=== PATIENT | female | born 1955 | race Caucasian/White ===

== ENCOUNTER → 2024-03-03 | Outpatient (CLI) | payer MEDICARE, SELFPAY ==
[2024-03-03 12:24] LABS: Free T4 (Free Thyroxine) 1.15 ng/dL (0.89-1.76); Thyroid Stimulating Hormone 4.33 uIU/mL (0.55-4.78)
== END | disposition home or self-care (01) ==
LOC: COPL 11:07
PROVIDERS: PCP Family Medicine; Referring Provider Family Medicine; Visit Provider Family Medicine
DX: E03.9 Hypothyroidism, unspecified (principal)
CPT/HCPCS: 36415; 84439; 84443

== ENCOUNTER → 2024-07-01 | Outpatient (CLI) | payer MEDICARE, SELFPAY ==
--- NOTE | 2024-07-01 11:00 | XR_ITS ---
Examination: MRI lumbar spine without contrast Date and time of exam: July 02, 2023 and 52 hours INDICATIONS: Onset lower back pain beginning 2 months ago radiating down the left leg Technique: Multiple MRI axial and sagittal sections lumbar spine. Sagittal T2-weighted images, TR 3500, TE 118 T1 weighted transverse sections, TR 688 T8.5, T2-weighted sagittal sections T1 weighted sagittal sections TR 621, TE 30 T2 axial sections, TR 4, 190, TE 84. Findings: Subacute appearing moderately severe compression fracture L4 vertebral body, depression superior endplate Minimal retropulsion of the posterior-superior margin of this vertebral body Advanced disc narrowing L1-L2, L2-L3 Grade 1 anterolisthesis L5 on S1 Diffuse lumbar disc desiccation L5-S1 3 mm central lumbar disc bulges L4-L5 no disc protrusion L3-L4 3 mm central right paracentral disc bulge L2-L3 no disc protrusion L1-L2 disc protrusion IMPRESSION: Moderately severe subacute appearing compression fracture L4 vertebral body CT lumbar spine without contrast follow up would best assess stability of this fracture
== END | disposition home or self-care (01) ==
LOC: SMRI 10:23
PROVIDERS: PCP Family Medicine; Referring Provider Family Medicine; Visit Provider Family Medicine
DX: M48.56XA Collapsed vertebra, not elsewhere classified, lumbar region, initial encounter for fracture (principal)
CPT/HCPCS: 72148

== ENCOUNTER 2024-12-04 11:54 | Inpatient (IN) | payer MEDICARE, SELFPAY ==
[2024-12-04 12:04] VITALS: BP 115/81; PULSE 106; RESP 18; TEMP 36.7; O2SAT 96; BMI 42.4
--- NOTE | 2024-12-04 12:08 | XR_ITS ---
Examination: CT abdomen and pelvis without contrast. Coronal 3-D reconstructions. Sagittal 2-D reconstructions. Date and time of exam:December 04, 2024 1249 hours INDICATIONS: Lower abdominal pain with bloody diarrhea today CTDI: vol (mGy): 22.9 DLP: (mGycm): 1377 Technique: Axial images of the abdomen have been obtained, 3 mm slice thickness Intravenous contrast material has not been administered. Low dose protocols were performed. One or more of the following dose reduction techniques were used; automated exposure control, adjustment of the mA and/or KV according to patient size, use of iterative reconstruction technique. Findings: 3 mm, 6 mm pulmonary nodules right lower lobe, 2 mm pulmonary nodule left lower lobe Liver is irregular in contour with solid right lobe liver lesion, 6.3 cm with irregular margins Hepatomegaly 21 cm Spleen is not enlarged Septation in the gallbladder No pancreatic or splenic lesion Normal adrenal glands 1 mm left renal calculus image 81 Atrophic right kidney with 2 mm calculus No hydronephrosis or ureteral calculi There is diffuse inflammatory change involving the descending colon without diverticula No pericecal inflammatory change Contracted urinary bladder Absent uterus Severe osteopenia with chronic osteoporotic compression L4 Left hip total arthroplasty with satisfactory alignment IMPRESSION: Noncalcified pulmonary nodules as above, recommend elective CT chest without contrast follow-up Cirrhosis 6.3 cm solid mass with irregular margins right lobe the liver, recommend MRI abdomen liver follow-up pre and postcontrast Septation in the gallbladder, recommend hepatobiliary sonography Tiny nonobstructing renal calculi Diffuse nonspecific inflammatory change involving the descending colon, differential would include ulcerative colitis, Crohn's disease
--- NOTE | 2024-12-04 12:08 | PD.EDRME ---
Rapid Medical Screening Exam RME Arrival date/time: 12/04/24 11:54 69-year-old female with no known medical history presents to the emergency room with a chief complaint of diffuse 10 out of 10 abdominal pain and rectal bleeding x 3 days I have greeted and performed a focused initial assessment of this patient. A comprehensive ED assessment and evaluation of the patient, analysis of all test results, and completion of the medical decision making process will be conducted by additional ED providers. Chief Complaint: Abdominal Pain Vital signs: Vital Signs Temperature 98.1 F 12/04/24 12:04 Pulse Rate 106 H 12/04/24 12:04 Respiratory Rate 18 12/04/24 12:04 Blood Pressure 115/81 12/04/24 12:04 Pulse Oximetry (%) 96 12/04/24 12:04 Oxygen Delivery Method Room Air 12/04/24 12:04
[2024-12-04 12:49] LABS: Basophils # (Auto) 0.1 Thou/mm3 (0.0-0.2); Basophils % (Auto) 1 % (0-2.5); Eosinophils # (Auto) 0.1 Thou/mm3 (0.0-0.5); Eosinophils % (Auto) 1 % (0-10); Hematocrit 48.4 % (36.0-46.0); Hemoglobin 15.7 g/dL (12.0-16.0); Immature Granulocytes Auto 0.07 Thou/mm3 (0.00-0.00); Lymphocytes # (Auto) 1.9 Thou/mm3 (1.0-4.8); Lymphocytes % (Auto) 17 % (10-50); Mean Corpuscular HGB Conc 32.4 g/dl (31.0-37.0); Mean Corpuscular Hemoglobin 30.3 pg (25.0-35.0); Mean Corpuscular Volume 93 fL (80-100); Monocytes # (Auto) 0.7 Thou/mm3 (0.0-0.8); Monocytes % (Auto) 6 % (0-12); Neutrophils # (Auto) 8.6 Thou/mm3 (1.8-7.7); Neutrophils % (Auto) 75 % (37-80); Nucleated Red Blood Cell # 0.00 Thou/mm3 (0.00-0.00); Nucleated Red Blood Cell % 0 /100 WBC (0); Platelet Count 267 Thou/mm3 (140-440); RDW Standard Deviation 51.5 fL (36.4-46.3); Red Blood Count 5.19 Miln/mm3 (4.00-5.20); White Blood Count 11.5 Thou/mm3 (3.6-11.0)
[2024-12-04 13:04] LABS: INR 1.1 (0.9-1.3); Partial Thromboplastin Time 27.7 Seconds (22.0-36.0); Prothrombin Time 11.9 Seconds (9.0-12.2)
[2024-12-04 13:08] LABS: Alanine Aminotransferase 17 U/L (10-49); Albumin, Serum 4.3 gm/dL (3.4-4.8); Albumin/Globulin Ratio 1.7 (1.2-2.2); Alkaline Phosphatase 138 U/L (46-116); Anion Gap 12 (7-16); Aspartate Amino Transferase 18 U/L (0-34); BUN/Creatinine Ratio 16 Ratio (12-20); Bilirubin,Total 0.3 mg/dL (0.3-1.2); Blood Urea Nitrogen 26 mg/dL (9-23); Calcium 9.9 mg/dL (8.3-10.6); Calcium (Corrected) 9.9 mg/dL (8.5-10.1); Carbon Dioxide 20.0 mMol/L (20.0-31.0); Chloride 105 mMol/L (98-107); Creatinine (Component) 1.6 mg/dL (0.6-1.3); Estimated Creatinine Clearance 43.3 mL/min (>60); Globulin 2.5 gm/dL (2.3-3.5); Glucose 122 mg/dL (74-106); Lipase 38 U/L (12-53); Osmolality,Calculated 279 (275-295); Potassium 4.7 mMol/L (3.4-5.1); Sodium 137 mMol/L (136-145); Total Protein 6.8 gm/dL (5.7-8.2); eGFR 35 See Note
[2024-12-04 14:07] VITALS: BP 135/95; PULSE 82; RESP 18; TEMP 36.5; O2SAT 93
--- NOTE | 2024-12-04 14:46 | PD.EDABDPN ---
ED Abdominal Pain RME/HPI General Chief Complaint: Abdominal Pain Stated complaint: ABD PAIN Time seen by provider: 12/04/24 12:09 Arrival date/time: 12/04/24 11:54 RME / HPI RME / HPI narrative: 12/04/24 11:54 69-year-old female with no known medical history presents to the emergency room with a chief complaint of diffuse 10 out of 10 abdominal pain and rectal bleeding x 3 days I have greeted and performed a focused initial assessment of this patient. A comprehensive ED assessment and evaluation of the patient, analysis of all test results, and completion of the medical decision making process will be conducted by additional ED providers. DR. ZIGGY FRIAS ED EVALUATION 69 year old female with history of hypertension, hypothyroidism, gout, osteoarthritis, s/p left hip replacement presents to the ED for evaluation of abdominal pain and blood in stool that began 2 days ago. Patient states 2 days ago when she first developed the abdominal pain, she noted the pain was so severe that next thing she recalls is waking up on the floor and soiled (had large amount of diarrhea per pt). States since then, has had subsequent episodes of pain with diarrhea that is described as a dark maroon color. Accompanied by nausea and feeling light headed. Patient mentioned she has had similar episodes of abdominal pain with diarrhea intermittently over the last several years, but not to this severity. Patient also denies any blood in stool previously. No other associated symptoms or complaints reported. Related Data Previous Rx's ?Medication ?Instructions ?Recorded albuterol sulfate 90 mcg/actuation 1 inh inhalation QID PRN shortness 03/18/23 aerosol inhaler of breath or wheezing #8.5 grams prednisone 50 mg tablet 50 mg PO QDAY #5 tabs 03/18/23 Allergies Allergy/AdvReac Type Severity Reaction Status Date / Time No Known Allergies Allergy Verified 12/04/24 11:57 Review of Systems Review of Systems Systems Reviewed: All systems reviewed, normal except as documented Past Medical History Past Medical History CARDIAC: Positive Hypertension; Negative Congestive Heart Failure RESPIRATORY: Negative Chronic Obstructive Pulmonary Disease (COPD) GENITOURINARY: Negative Renal Disease MUSCULOSKELETAL: Positive Gout ENDOCRINE: Positive Hypothyroidism; Negative Diabetes Mellitus Type 1 or Diabetes Mellitus Type 2 Social History SMOKING STATUS: Never smoker ED Exam Narrative Physical exam: See [facility] Course Quality Measures none Orders Category Date Time Status Bedside COVID-19 Antigen Test NOW Care 12/04/24 15:18 Active COVID-19 Screening Questionnaire NOW Care 12/04/24 15:02 Active Decision to Admit X1 Care 12/04/24 15:02 Completed Consult to Gastroenterology Stat Cons 12/04/24 15:[address] abdomen pelvis wo con Stat Exams 12/04/24 12:08 Completed CBC Stat Lab 12/04/24 12:19 Completed CMP [Comprehensive Metabolic Panel] Stat Lab 12/04/24 12:19 Completed Lipase Stat Lab 12/04/24 12:19 Completed PT [Prothrombin Time with INR] Stat Lab 12/04/24 12:19 Completed PTT [Partial Thromboplastin Time] Stat Lab 12/04/24 12:19 Completed Type and Screen Stat Lab 12/04/24 12:19 Completed UA [Urinalysis] Stat Lab 12/04/24 14:58 Received Urine Culture Stat Lab 12/04/24 14:58 Received Vital Signs Vital signs: Vital Signs Temperature 98.1 F 12/04/24 12:04 Pulse Rate 106 H 12/04/24 12:04 Respiratory Rate 18 12/04/24 12:04 Blood Pressure 115/81 12/04/24 12:04 Pulse Oximetry (%) 96 12/04/24 12:04 Oxygen Delivery Method Room Air 12/04/24 12:04 Pulse ox is 96% on room air which is adequate. Abdominal Pain MDM MDM Narrative MDM Narrative:: This section includes all my notes and documentations, including HPI, PE, and ED course. Eddi Villareal MD ? HPI: 69 year old female with history of hypertension, hypothyroidism, gout, osteoarthritis, s/p left hip replacement presents to the ED for evaluation of abdominal pain and blood in stool that began 2 days ago. Patient states 2 days ago when she first developed the abdominal pain, she noted the pain was so severe that next thing she recalls is waking up on the floor and soiled (had large amount of diarrhea per pt). States since then, has had subsequent episodes of pain with diarrhea that is described as a dark maroon color. Accompanied by nausea and feeling light headed. Patient mentioned she has had similar episodes of abdominal pain with diarrhea intermittently over the last several years, but not to this severity. Patient also denies any blood in stool previously. No other associated symptoms or complaints reported. ? ROS: All negative except as documented in HPI. ? PE: GENERAL APPEARANCE:? alert and oriented x 4, well-developed, well-nourished, no acute distress, mrbidly obese VITALS: All vitals were reviewed and the pulse ox is % on room air, which is normal according to my interpretation. HEENT: Normocephalic, atraumatic; pupils equal, round, reactive to light; EOMI; mucous membranes pink, moist; oropharynx clear NECK: Supple LUNGS: CTABL; no wheezes, no rales, no rhonchi HEART: Regular rate, regular rhythm; normal S1, S2; no murmurs ABDOMEN: obese; non distended; normal BS;? soft, mild generalized tenderness, no guarding, no rebound; no masses, no organomegaly, no hernia?? BACK:? no CVA tenderness EXTREMITIES:? atraumatic; no edema NEUROLOGIC: awake; alert and oriented x4; cranial nerves II-XII grossly intact; no focal sensory or motor deficits PSYCHIATRIC:? appropriate mood and affect SKIN: warm, dry, normal color; no rashes ? I reviewed all diagnostic test results: My review of the abdomen/pelvis CT: Diffuse nonspecific inflammatory change involving the descending colon. ? Blood tests and urine test: mild leukocytosis, PT/PTT within normal limits Covid: Negative. ? At this point, diagnoses include: Colitis and renal insufficiency ? Treatment here included: No medications given in the ED. ? 15: [address] Browning (blood bank laboratory technologist on-call for the ER). We discussed patient's case in detail. He recommended that we admit the patient for colitis and GI bleeding with the presumption that he patient will be scoped. Patient has renal insufficiency and colitis will admit I spoke with hospitalist team A regarding admission. Patient data External records reviewed:: [facility] previous records Clinical information provided by:: patient Social determinants that could affect healthcare access:: none Patient has the following chronic illnesses:: hypertension, hypothyroidism, gout, osteoarthritis, s/p left hip replacement How is presenting disease/condition affected by chronic disease/condition?: uneffected by Evaluation data The following diagnostics were reviewed and interpreted by me:: lab results and radiology exam(s) Lab and/or radiology exams considered but not ordered:: None Interpretation Summary: See MDM Medications / Prescriptions Medications or Prescriptions considered but not ordered:: None Medication administrations:: None Consultations Consultation(s) initiated? (list below): Yes Consultation #1 (Physician, Specialty, Details): See MDM Diagnosis Differential diagnosis abdominal pain: abdominal pain, constipation and diverticulitis Most likely diagnosis given after review of the tests above:: Colitis renal insufficiency Admission Indicated Admission indicated?: indicated Admission Request Was there a request for admission?: Yes Admission Attestation Admission request attestation: Discussed case with [] from Hospitalist service regarding admission. Discussed patients ED course, exam findings, labs, and radiology results. The Hospitalist [agrees,declines] to accept the patient for admission. Disposition Plan Disposition Plan: Admit Discharge Plan Plan Patient Disposition: Admit Acute Care w/in Hospital Prescriptions/Referrals Prescriptions/Med Rec: No Action albuterol sulfate 90 mcg/actuation HFA aerosol inhaler 1 inh inhalation QID PRN (Reason: shortness of breath or wheezing) Qty: 8.5 0RF Rx Instructions: Dispense with spacer and teaching prednisone 50 mg tablet 50 mg PO QDAY Qty: 5 0RF Referrals: Tona Metz MD [Primary Care Provider, Family Practice] - In 1 week Problem List Clinical Impression: Colitis, Acute renal insufficiency Patient/Caregiver Discharge Instructions Print Language: Korean Stand Alone Forms: [facility] Info., Patient Portal Info Letter
[2024-12-04 15:09] LABS: Collection Type, Urine Clean Catch
[2024-12-04 15:32] LABS: Bacteria,Urine 3+; Bilirubin,Urine Negative (Negative); Blood,Urine Negative (Negative); Color,Urine Yellow (Lt Yel-Yel); Glucose, Urine Negative (Negative); Ketones,Urine Negative (Negative); Leukocyte Esterase,Urine Positive (Negative); Nitrite,Urine Negative (Negative); PH,Urine 6.0 (5.0-7.0); Protein,Urine Trace (Neg - Trace); RBC,Urine 2 /hpf (0-3); Specific Gravity,Urine 1.026 (1.001-1.035); Squamous Epithelial Cell,Urine 11 /hpf (0-5); Urobilinogen,Urine Negative mg/dL (0.0-1.0); WBC,Urine 7 /hpf (0-5)
[2024-12-04 15:35] LABS: Clarity,Urine Hazy (Clear/Hazy)
[2024-12-04 16:12] VITALS: BP 137/84; PULSE 76; RESP 18; TEMP 36.6; O2SAT 93
--- NOTE | 2024-12-04 16:43 | ESHP_ITS ---
Documentation for date of: 12/04/24 HPI History of Present Illness History of present illness: This is a 69 yof with a h/o htn, hypothyroidism, osteoarthritis, gout, and a surgical history of umbilical hernia repair who presents with 4 days of nausea, vomiting, severe abdominal pain, and bloody diarrhea. She has never had this pain before and it has been persistent without relief over the past 4 days. 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 She endorses fever, bright red blood in the bowl, vomiting on Wednesday, and an inability to tolerate food. Of note, she endorses 100 pound weight loss through dietary changes alone. She denies new chest pain, shortness of breath, dysuria, or difficulty with urination. She also notes her step mother seems to have been having diarrhea. However, the patient has never had a colonoscopy in the past. ED Course: - Vitals: T: 98.1 HR 106 RR 18 BP 115/81, SPO2 95% RA, - Labs notable for elevated BUN and Creatinine, and WBC of 11.5. - CT of the abdomen and pelvis were notable for non calcified pulmonary nodules in the lower lobes bilaterally, a 6.3 cm liver mass with irregular margins, gallbladder septation, and diffuse inflammatory changes of the descending colon. - GI was consulted in the ED, and they recommended admission for colonoscopy with biopsies. Review of Systems Review of Systems Narrative Review of Systems: See ROS in the HPI above Past Medical History Past Medical History CARDIAC: Positive Hypertension MUSCULOSKELETAL: Positive Arthritis and Gout ENDOCRINE: Positive Hypothyroidism Family History OTHER FAMILY HX: CHF in father, now . Breast cancer in mother, now Surgical History SURGICAL: Positive Abdominal Surgery (Umbilical hernia repair), Joint Replacement (Left hip arthroplasty ) and Hysterectomy Social History SOCIAL: Denies smoking and alcohol use. Lives with step mother and is her primary caregiver. Stepmother has john. [place]. Exam Vital Signs Temp Pulse Resp BP Pulse Ox O2 Del Method 98 F 76 18 137/84 H 93 L Room Air 12/04/24 16:12 12/04/24 16:12 12/04/24 16:12 12/04/24 16:12 12/04/24 16:12 12/04/24 16:12 Narrative Exam General: Patient lying in bed, not in acute distress but appears mildly to moderately uncomfertable HEENT: Non-icteric sclera, PERRL, moist mucus membranes without lesion within the oral cavity. . Cardiac: RRR, no murmurs appreciated on auscultation. Respiratory: clear to auscultation bilaterally, no tachypnea or labored speech. Abdominal: Soft, non-distended, TTP in the suprapubic and LLQ without rebound. Extremities:Non-edematous, warm, well perfused. Skin: No skin rashes or bruising. Results: Labs 12/04/24 12:19 12/04/24 12:19 Labs: Short CBC 12/04/24 Range/Units 12:19 WBC 11.5 H (3.6-11.0) Thou/mm3 Hgb 15.7 (12.0-16.0) g/dL Hct 48.4 H (36.0-46.0) % Plt Count 267 (140-440) Thou/mm3 BMP 12/04/24 12:19 Sodium 137 Potassium 4.7 Chloride 105 Carbon Dioxide 20.0 BUN 26 H Creatinine 1.6 H Glucose 122 H Calcium 9.9 Liver Function 12/04/24 Range/Units 12:19 Total Bilirubin 0.3 (0.3-1.2) mg/dL AST 18 (0-34) U/L ALT 17 (10-49) U/L Alkaline Phosphatase 138 H (46-116) U/L Albumin 4.3 (3.4-4.8) gm/dL Urine 12/04/24 Range/Units 14:58 Urine Color Yellow (Lt Yel-Yel) Urine Clarity Hazy (Clear/Hazy) Urine pH 6.0 (5.0-7.0) Ur Specific [place] 1.026 (1.001-1.035) Urine Protein Trace (Neg - Trace) Urine Glucose (UA) Negative (Negative) Imaging and Cardiology CT scan - abdomen: Additional comments: Image report reviewed by Erik Martinez DO. Quality Measures Quality Measures none Advance care planning discussed with:: patient Medications Home Medications and Allergies Home Medications ?Medication ?Instructions ?Recorded ?Confirmed ?Type acetaminophen 300 mg-codeine 60 mg 1 tab PO Q6H PRN pa in (scale score 12/04/24 12/04/24 History tablet 7-10) allopurinol 100 mg tablet 100 mg PO DAILY 12/04/2411/20 History amitriptyline 25 mg tablet 25 mg PO DAILY 12/04/2411/20 History amlodipine 5 mg tablet 5 mg PO DAILY 12/04/2412/04 History levothyroxine 137 mcg tablet 137 mcg PO DAILY 12/04/24 12/04/24 History lisinopril 20 mg tablet 20 mg PO DAILY 12/04/2411/20 History triamterene 75 1 tab PO DAILY 12/04/2411/20 History mg-hydrochlorothiazide 50 mg tablet Allergies Allergy/AdvReac Type Severity Reaction Status Date / Time No Known Allergies Allergy Verified 12/04/24 11:57 Visit Medications Acetaminophen (Acetaminophen 325 Mg Tablet) 650 mg PO Q6H PRN; Protocol PRN Reason: Fever >100.5 or pain Stop: 01/03/25 16:07 Lactated Ringer's (Lactated Ringers) 1,000 mls @ 75 mls/hr IV .[id number] RAMON Stop: 12/05/24 05:34 Piperacillin/Tazobactam/Dextrose (Zosyn) 3.375 gm in 50 mls @ 12.5 mls/hr IV Q8HR RAMON Stop: 12/11/24 21:59 Piperacillin/Tazobactam/Dextrose (Zosyn) 3.375 gm in 50 mls @ 100 mls/hr IV X1 ONE Stop: 12/04/24 16:59 Morphine Sulfate (Morphine Sulf Inj 4 Mg/Ml Vial) 2 mg IVP Q4HR PRN PRN Reason: PAIN SCALE 7-10 (Severe Stop: 12/09/24 16:12 Ondansetron HCl (Ondansetron Inj 2 Mg/Ml Inj 2 Ml) 4 mg IVP Q6H PRN; Protocol PRN Reason: NAUSEA OR VOMITING Stop: 01/03/25 16:12 Assessment & Plan Problem List (1) Intractable abdominal pain: Status: Acute (2) Nausea & vomiting: Qualifiers: Vomiting type: unspecified Qualified Code(s): R11.2 - Nausea with vomiting, unspecified Status: Acute (3) Bloody diarrhea: Status: Acute Assessment and plan: 69 yof with a h/o htn, gout, and hypothyroidsim presents with 4 days of severe abdominal pain, nausea, and bloody diarrhea. She was found to have an elevated white count and non-specific inflammatory changes of the descending colon. Differential includes infectious colitis, inflammatory bowel disease, and colon cancer. C dif colitis is less likely, as the patient has not been recently hospitalized nor has she had any systemic antibiotics. Plan: mIVF, LR IV ondansetron Clear liquid diet Stool studies: WBC, fecal calprotectin, stool culture. Blood cultures and empiric antibiotics ordered for possible infectious colitis. GI consulted in the ED, recommended admission for colonoscopy with biopsy. (4) Liver lesion, right lobe: Status: Acute (5) Pulmonary nodules/lesions, multiple: Status: Acute Assessment and plan: These are incidental findings on CT abd and pelvis. Differential diagnosis does include metastasis. Recommended work up is MRI with and without contrast for the liver and CT chest non-contrast for the lungs. Will hold off on ordering these tests until tomorrow for further assessment of patient's renal function (see below) and coordination with GI for colonoscopy scheduling. (6) KADI (acute kidney injury): Status: Acute Assessment and plan: Noted on initial labs with Cr 1.6, BUN 26. This most likely represents a pre- renal kadi based on the patient's inability to maintain fluid intake and her diarrhea. Plan: -mIVF, lactated ringer - encouraged Clear liquid diet - avoid nephrotoxic drugs and contrast for now. (7) Hypothyroidism: Qualifiers: Hypothyroidism type: unspecified Qualified Code(s): E03.9 - Hypothyroidism, unspecified Status: Chronic Assessment and plan: - Stable, continue home levothyroxine. (8) HTN (hypertension): Qualifiers: Hypertension type: unspecified Qualified Code(s): I10 - Essential (primary) hypertension Status: Chronic Assessment and plan: Stable. Patient is normotensive in the ED today. She is currently on amlodipine, HCTZ-triamterine, and lisinopril. Given that she may be hypovolemic, will hold her HCTZ-triamterine and reassess her BP tomorrow. (9) Compression fracture of L4 vertebra: Status: Chronic Assessment and plan: - Incidental finding on CT abd and pelvis. Will inform patient in the morning. (10) Septation of gallbladder: Status: Acute Assessment and plan: Incidental finding on CT Abd and pelvis. Unclear significance. Recommendation is hepatobiliary sonography. Will reassess tomorrow. Attending Provider Attestation/Addendum I have examined the patient, reviewed labs and imaging findings, discussed the case with the resident(s), and reviewed entered orders. I agree with the plan of care as outlined in this note, with these additional summaries/recommendations: After examination of the patient and review of the clinical data, I feel that this patient needs admission to the hospital for further treatment and evaluation. Patient is a 69-year-old female with a medical history of primary hypertension, dyslipidemia, gout, asthma, hypothyroidism, osteoarthritis, and umbilical hernia presents to [facility] emergency department on 12/04/2024 with chief complaints of intractable diffuse abdominal pain, intractable nausea, and intractable bloody diarrhea. Patient seen at bedside. She reports intractable abdominal pain rated 10 out of 10 in severity. Appears to be located more in lower quadrants with worst pain in left lower quadrant. She also endorses no oral intake in the last 48 hours and persistent nausea. Patient also endorses bloody diarrhea. She denies any sick contacts. She has never had a colonoscopy. She reports she has lost over 100 pounds in the last year with diet alone. Patient underwent CT abdomen and pelvis in the ER which revealed diffuse nonspecific inflammatory changes in the descending colon. Patient diagnosed with colitis. Etiology for colitis possibly secondary to infectious versus IBD versus colon cancer. We will obtain stool studies. Start IV antibiotic. Start IV fluids. Clear liquid diet. Gastroenterology consulted, recommendations appreciated. Patient was also found to have noncalcified pulmonary nodules and 6.3 cm solid mass with irregular margins in right lobe of the liver. We will obtain MRI of abdomen pre and postcontrast once KADI more improved. Patient also noted to have a septated gallbladder which is likely an incidental finding. LFTs and T. bili with normal limits. Alk phos mildly elevated. Appreciate GI recs on septation of gallbladder. Continue pain management for chronic osteoporotic compression fracture of L4. Patient diagnosed with acute kidney injury. On admission creatinine 1.6 and BUN 26. Most likely secondary to prerenal azotemia in the setting of poor oral intake. Continue IV fluids and repeat renal panel in AM. Avoid nephrotoxic agents and renally dose medications. Continue home levothyroxine. Continue home antihypertensives. Patient updated on the plan and in agreement. All questions answered to satisfaction. Please see residents note for additional details and management. Dr. Suhail MD
[2024-12-04] MEDS: PIPER/TAZO 3.375 GM PREMIX 3.375 GM/50 ML BAG IV ×2 (17:00→21:14)
[2024-12-04 18:10] VITALS: BP 156/102; PULSE 82; RESP 18; TEMP 36.8; O2SAT 94
[2024-12-04 18:14] VITALS: BMI 96.8
[2024-12-04 18:21] VITALS: BMI 43.9
[2024-12-04] MEDS: MORPHINE SULF INJ 4 MG/ML VIAL 2 MG IVP (18:45)
[2024-12-04] MEDS: ONDANSETRON INJ 2 MG/ML INJ 2 ML 4 MG IVP (18:45)
[2024-12-04 19:35] VITALS: PULSE 77; PULSE 79; RESP 18; RESP 19; O2SAT 97
[2024-12-04] MEDS: RINGERS LACTATED 1000 ML 1,000 ML 75 ML IV (19:50)
[2024-12-04 20:00] VITALS: BP 95/61; PULSE 76; RESP 16; TEMP 36.1; O2SAT 98
--- NOTE | 2024-12-04 22:00 | PD.IMCONS ---
HPI Data of Consult Requesting Physician: Jerel Jang MD Primary Care Provider: Tona Metz MD Consult Narrative Reason for consult: Pain abdomen, bleeding per rectum, abnormal CTAP History of present illness: 69 years of female evaluated the request of ER physician Dr. Villareal for clinical presentation of severe abdominal pain with bloody stools CT scan of the abdomen pelvis showed inflammatory changes in the descending colon and a 6.7 cm mass in the right of the liver which is solid with irregular margins. Cirrhotic liver disease Patient does have a history of essential hypertension osteoarthritis and gouty arthritis cc:: cc: Jerel Jang MD Review of Systems Review of Systems Systems Reviewed: All systems reviewed, normal except as documented Past Medical History Surgical History OTHER SURGICAL HX: As in the history present illness Meds Home Medications and Allergies Home Medications ?Medication ?Instructions ?Recorded ?Confirmed ?Type acetaminophen 300 mg-codeine 60 mg 1 tab PO Q6H PRN pain (scale score 12/04/24 12/04/24 History tablet 7-10) allopurinol 100 mg tablet 100 mg PO DAILY 12/04/24 12/04/24 History amitriptyline 25 mg tablet 25 mg PO DAILY 12/04/24 12/04/24 History amlodipine 5 mg tablet 5 mg PO DAILY 12/04/24 12/04/24 History levothyroxine 137 mcg tablet 137 mcg PO DAILY 12/04/24 12/04/24 History lisinopril 20 mg tablet 20 mg PO DAILY 12/04/24 12/04/24 History triamterene 75 1 tab PO DAILY 12/04/24 12/04/24 History mg-hydrochlorothiazide 50 mg tablet Allergies Allergy/AdvReac Type Severity Reaction Status Date / Time No Known Allergies Allergy Verified 12/04/24 11:57 Exam Vital Signs Temp Pulse Resp BP Pulse Ox O2 Del Method FiO2 98.2 F 79 18 156/102 H 97 Room Air 25 12/04/24 18:10 12/04/24 19:35 12/04/24 19:35 12/04/24 18:10 12/04/24 19:35 12/04/24 18:10 12/04/24 19:35 Constitutional Comments: Chronically ill-appearing Routine Respiratory Exam Comments: Normal to auscultation Routine Abdominal Exam Comments: Soft tenderness Results Labs 12/05/24 05:52 12/05/24 05:52 Labs: Short CBC 12/04/24 Range/Units 12:19 WBC 11.5 H (3.6-11.0) Thou/mm3 Hgb 15.7 (12.0-16.0) g/dL Hct 48.4 H (36.0-46.0) % Plt Count 267 (140-440) Thou/mm3 BMP 12/04/24 12:19 Sodium 137 Potassium 4.7 Chloride 105 Carbon Dioxide 20.0 BUN 26 H Creatinine 1.6 H Glucose 122 H Calcium 9.9 Liver Function 12/04/24 Range/Units 12:19 Total Bilirubin 0.3 (0.3-1.2) mg/dL AST 18 (0-34) U/L ALT 17 (10-49) U/L Alkaline Phosphatase 138 H (46-116) U/L Albumin 4.3 (3.4-4.8) gm/dL Urine 12/04/24 Range/Units 14:58 Urine Color Yellow (Lt Yel-Yel) Urine Clarity Hazy (Clear/Hazy) Urine pH 6.0 (5.0-7.0) Ur Specific [place] 1.026 (1.001-1.035) Urine Protein Trace (Neg - Trace) Urine Glucose (UA) Negative (Negative) Assessment and Plan Additional Assessment & Plan Additional Plan: # Pain abdomen with blood in the stool and abnormal CT scan of the abdomen pelvis showing inflammatory changes in the descending colon Differential diagnosis include infectious versus inflammatory colitis plan Complete stool panel with culture and sensitivity fecal calprotectin Giardia antigen Gram stain as well as stool for C. difficile Clear liquid diet GoLytely prep Consent obtained for fiberoptic colonoscopy with possible biopsy # Right liver mass 6.5 cm aFP MRI liver pre and postcontrast 4 phase If consistent with a solid mass recommend CT-guided biopsy of this mass prior to discharge Other medical problems include Essential hypertension Osteoarthritis Gouty arthritis Thank you very much for the opportunity to participate in care of this patient
[2024-12-04] MEDS: NA SU/NAHCO3/KC/PEG (Golytely) 4,000 ML BTL 4000 ML PO (22:48)
[2024-12-04 23:13] LABS: Sed Rate (ESR) 62 mm/hr (0-30)
[2024-12-04 23:24] LABS: C-Reactive Protein 2.6 mg/dL (0.0-0.9)
[2024-12-05] VITALS (9 sets, daily range): BP systolic 110–151; BP diastolic 54–93; PULSE 67–88; RESP 16–20; TEMP 36.1–36.9; O2SAT 94–96
[2024-12-05] MEDS: ONDANSETRON INJ 2 MG/ML INJ 2 ML 4 MG IVP (01:33)
[2024-12-05] MEDS: MORPHINE SULF INJ 4 MG/ML VIAL 2 MG IVP ×3 (01:34→20:03)
--- NOTE | 2024-12-05 01:40 | PC.NURSE ---
Patient had a chief complaint of pain in the abd, back and hip. Patient also a chief complaint of nausea. Zofran and Morphine were administered to patient for nausea and pain. Greer is currently taking Golytely in preperation for colonoscopy for 12/[address] Browning.
[2024-12-05] MEDS: PIPER/TAZO 3.375 GM PREMIX 3.375 GM/50 ML BAG IV ×3 (05:34→21:59)
[2024-12-05 06:14] LABS: Basophils # (Auto) 0.1 Thou/mm3 (0.0-0.2); Basophils % (Auto) 1 % (0-2.5); Eosinophils # (Auto) 0.1 Thou/mm3 (0.0-0.5); Eosinophils % (Auto) 1 % (0-10); Hematocrit 44.1 % (36.0-46.0); Hemoglobin 14.4 g/dL (12.0-16.0); Immature Granulocytes Auto 0.08 Thou/mm3 (0.00-0.00); Lymphocytes # (Auto) 2.1 Thou/mm3 (1.0-4.8); Lymphocytes % (Auto) 22 % (10-50); Mean Corpuscular HGB Conc 32.7 g/dl (31.0-37.0); Mean Corpuscular Hemoglobin 30.4 pg (25.0-35.0); Mean Corpuscular Volume 93 fL (80-100); Monocytes # (Auto) 0.7 Thou/mm3 (0.0-0.8); Monocytes % (Auto) 8 % (0-12); Neutrophils # (Auto) 6.4 Thou/mm3 (1.8-7.7); Neutrophils % (Auto) 68 % (37-80); Nucleated Red Blood Cell # 0.00 Thou/mm3 (0.00-0.00); Nucleated Red Blood Cell % 0 /100 WBC (0); Platelet Count 202 Thou/mm3 (140-440); RDW Standard Deviation 51.1 fL (36.4-46.3); Red Blood Count 4.73 Miln/mm3 (4.00-5.20); White Blood Count 9.4 Thou/mm3 (3.6-11.0)
[2024-12-05 07:00] LABS: Alanine Aminotransferase 18 U/L (10-49); Albumin, Serum 3.6 gm/dL (3.4-4.8); Albumin/Globulin Ratio 1.6 (1.2-2.2); Alkaline Phosphatase 120 U/L (46-116); Anion Gap 11 (7-16); Aspartate Amino Transferase 22 U/L (0-34); BUN/Creatinine Ratio 18 Ratio (12-20); Bilirubin,Total 0.5 mg/dL (0.3-1.2); Blood Urea Nitrogen 25 mg/dL (9-23); Calcium 9.2 mg/dL (8.3-10.6); Calcium (Corrected) 9.5 mg/dL (8.5-10.1); Carbon Dioxide 23.9 mMol/L (20.0-31.0); Chloride 102 mMol/L (98-107); Creatinine (Component) 1.4 mg/dL (0.6-1.3); Estimated Creatinine Clearance 50.5 mL/min (>60); Globulin 2.2 gm/dL (2.3-3.5); Glucose 85 mg/dL (74-106); Magnesium 1.9 mg/dL (1.6-2.6); Osmolality,Calculated 277 (275-295); Phosphorous 3.2 mg/dL (2.4-5.1); Potassium 4.1 mMol/L (3.4-5.1); Sodium 137 mMol/L (136-145); Thyroid Stimulating Hormone 4.19 uIU/mL (0.55-4.78); Total Protein 5.8 gm/dL (5.7-8.2); eGFR 41 See Note
[2024-12-05] MEDS: AMITRIPTYLINE HCL 25 MG TABLET PO (09:01)
--- NOTE | 2024-12-05 09:08 | PC.SS ---
Patient Elle Poe is a 69 Year old female admitted for Intractable ABD pain, Colitis, KADI. SS contacted patient's , Dick Poe at bedside to discuss discharge plan and verify demographic information. Patient's reports he is surrogate decision maker, . reports patient lives at home with him. Patient does utilize a Rollator walk and cane to assist with ambulation. Choice of pharmacy is [facility]. Patient is able to complete ADL's independently. At time of discharge patient will return back home. will provide transportation. Discharge plan: Home Next of kin: Dick Poe PCP: Tona Metz
--- NOTE | 2024-12-05 09:21 | ESPR_ITS ---
Documentation for date of: 12/06/24 Exam Vital Signs Temp Pulse Resp BP Pulse Ox O2 Del Method O2 Flow Rate 97 F 90 18 122/88 H 98 Room Air 2 12/06/24 08:00 12/06/24 08:00 12/06/24 08:00 12/06/24 08:00 12/06/24 08:00 12/06/24 08:00 12/06/24 00:00 FiO2 25 12/04/24 19:35 Narrative Exam General: Middle aged patient, no acute distress, appears uncomfortable. HEENT: No JVD noted. Mucosa moist. Pupils are equal Cardiovascular: Quiet heart tones. Regular rate and rhythm. No murmur appreciated Respiratory: Clear to auscultation bilaterally without wheezes or crackles. Abdomen: Soft not distended, TTP mostly in the LLQ Skin: Dry, no rashes or bruising Musculoskeletal: No gross injuries. Able to move all 4 extremities. Non edematous lower extremities. Neuro: Alert . No focal neuro deficits. Psych: Appropriate affect and mood, anxious Objective Labs 12/08/24 04:33 12/08/24 04:33 Labs: Laboratory Results - last 24 hr 12/05/24 12/05/24 12/06/24 22:43 22:58 05:16 WBC 8.0 RBC 4.50 Hgb 13.8 Hct 42.2 MCV 94 MCH 30.7 MCHC 32.7 RDW Std Deviation 50.6 H Plt Count 207 Neut % (Auto) 66 Lymph % (Auto) 22 [place] % (Auto) 8 Eos % (Auto) 2 Baso % (Auto) 1 Neut # (Auto) 5.3 Lymph # (Auto) 1.8 [place] # (Auto) 0.7 Eos # (Auto) 0.1 Baso # (Auto) 0.1 Immature Gran # (Auto) 0.07 H Absolute Nucleated RBC 0.00 Immature Gran % 1 H Nucleated RBC % 0 PT 12.5 H INR 1.2 APTT 27.3 Sodium 140 Potassium 4.0 Chloride 104 Carbon Dioxide 27.6 Anion Gap 8 BUN 16 Creatinine 1.5 H Estim Creat Clear Calc 47.2 L eGFR 38 L BUN/Creatinine Ratio 11 L Glucose 85 Calculated Osmolality 279 Calcium 9.5 Corrected Calcium 9.8 Total Bilirubin 0.6 AST 15 ALT 15 Alkaline Phosphatase 112 Total Protein 5.5 L Albumin 3.6 Globulin 1.9 L Albumin/Globulin Ratio 1.9 Tumor Marker AFP 2.70 Stool for White Cells 12/06/24 05:36 WBC RBC Hgb Hct MCV MCH MCHC RDW Std Deviation Plt Count Neut % (Auto) Lymph % (Auto) [place] % (Auto) Eos % (Auto) Baso % (Auto) Neut # (Auto) Lymph # (Auto) [place] # (Auto) Eos # (Auto) Baso # (Auto) Immature Gran # (Auto) Absolute Nucleated RBC Immature Gran % Nucleated RBC % PT INR APTT Sodium Potassium Chloride Carbon Dioxide Anion Gap BUN Creatinine Estim Creat Clear Calc eGFR BUN/Creatinine Ratio Glucose Calculated Osmolality Calcium Corrected Calcium Total Bilirubin AST ALT Alkaline Phosphatase Total Protein Albumin Globulin Albumin/Globulin Ratio Tumor Marker AFP Stool for White Cells Negative Imaging and cardiology MRI - abdomen: Status: image reviewed by me (Report reviewed by me) CT scan - chest: Status: image reviewed by me Additional comments: report reviewed by me Quality Measures Quality Measures none Advance care planning discussed with:: patient Assessment & Plan Assessment Current Active Medications: Generic Name Dose Route Start Last Admin Trade Name Freq PRN Reason Stop Dose Admin Acetaminophen 650 mg 12/04/24 16:08 Acetaminophen 325 Mg Tablet PO 01/03/25 16:07 Q6H PRN Fever >100.5 or pain Protocol Allopurinol 100 mg 12/05/24 09:00 12/05/24 09:01 Allopurinol 100 Mg Tablet PO 01/04/25 08:59 100 mg DAILY RAMON Administration Amitriptyline HCl 25 mg 12/05/24 09:00 12/05/24 09:01 Amitriptyline Hcl 25 Mg Tablet PO 01/04/25 08:59 25 mg DAILY RAMON Administration Amlodipine Besylate 5 mg 12/05/24 09:00 12/05/24 09:02 Amlodipine Besylate 5 Mg Tablet PO 01/04/25 08:59 5 mg DAILY RAMON Administration Piperacillin/Tazobactam/Dextrose 3.375 gm in 50 mls @ 12.5 mls/hr 12/04/24 22:00 12/06/24 05:57 Zosyn IV 12/11/24 21:59 12.5 mls/hr Q8HR RAMON Administration Levothyroxine Sodium 112 mcg/ 137 mcg 12/05/24 06:00 12/06/24 05:54 Levothyroxine Sodium 25 mcg PO 01/04/25 05:59 Not Given ACBR RAMON Lisinopril 20 mg 12/05/24 09:00 12/05/24 09:01 Lisinopril 20 Mg Tablet PO 01/04/25 08:59 20 mg DAILY RAMON Administration Morphine Sulfate 2 mg 12/04/24 16:13 12/06/24 08:40 Morphine Sulf Inj 4 Mg/Ml Vial IVP 12/09/24 16:12 2 mg Q4HR PRN Administration PAIN SCALE 7-10 (Severe Ondansetron HCl 4 mg 12/04/24 16:13 12/05/24 01:33 Ondansetron Inj 2 Mg/Ml Inj 2 Ml IVP 01/03/25 16:12 4 mg Q6H PRN Administration NAUSEA OR VOMITING Protocol Attending Provider Attestation/Addendum Note created in error, see other progress note on 12/06
--- NOTE | 2024-12-05 11:12 | XR_ITS ---
Examination: MRI abdomen with intravenous contrast. MRI abdomen without intravenous contrast. Date and time of exam: December 05, 2024 1419 hours INDICATIONS: 6.3 cm solid mass with irregular margins right lobe the liver on CT abdomen study December 04, 2024 Technique: Multiple axial, sagittal and coronal sections of the abdomen obtained. Transverse images, TR 6020, TE 107. T1 weighted transverse images, TR 582, TE 9.5. T2-weighted sagittal images, TR 4000, TE 105. T2-weighted sagittal images, TR 4000, TE 5. Coronal images, TR 4210, TE 107. Axial and coronal images are obtained post 20 cc intravenous injection, gadolinium. Findings: Precontrast images demonstrate 7.0 x 6.8 cm mass irregular margins abdomen the liver on the right This mass shows irregular enhancement on the postcontrast images Liver is irregular in contour Hepatomegaly 21 cm Spleen is not enlarged Atrophic right kidney No pancreatic mass No gallstones No common hepatic or common bile duct stones Pancreatic duct is not dilated No ascites IMPRESSION: Cirrhosis 7.0 x 6.8 cm mass irregular margins right lobe of the liver, consider primary hepatocellular carcinoma, hepatic metastasis
[2024-12-05] MEDS: RINGERS LACTATED 1000 ML 1,000 ML 125 ML IV (11:56)
--- NOTE | 2024-12-05 16:02 | PC.SS ---
SS follow up note; Patient is on IV ABX, pending Colonoscopy. Patient will discharge home when medically cleared.
--- NOTE | 2024-12-05 16:12 | XR_ITS ---
Examination: CT chest, without intravenous contrast. Sagittal and coronal 2-D reconstructions. Exam date and time: December 05, 2024, 1626 hours INDICATIONS: 6.3 cm solid mass with irregular margins right lobe of the liver, hepatocellular carcinoma pattern, restaging CTDI:vol (mGy) 19.8 DLP: (mGycm) 714 Technique: Multiple 3.0 mm axial sections of the chest to been obtained. Bone and lung density settings are obtained. Sagittal and coronal 2-D reconstructions have been obtained. Low dose protocols were performed. One or more of the following dose reduction techniques were used; automated exposure control, adjustment of the mA and/or KV according to patient size, use of iterative reconstruction technique. Findings: No thoracic aorta aneurysmal dilatation. Enlarged main pulmonary artery segment 39 mm 16mm right tracheobronchial lymph node At least 20 bilateral subcentimeter pulmonary nodules ranging in size from 2 mm to 9 mm as well as a 11 mm nodule in the right lower lobe No pneumonia or pulmonary edema Severe osteopenia with chronic osteoporotic wedging mid dorsal vertebral bodies producing moderate kyphosis dorsal spine IMPRESSION: Pulmonary artery hypertension 16mm right tracheobronchial lymph node At least 20 metastatic pulmonary nodules
--- NOTE | 2024-12-05 23:30 | PC.NURSE ---
golytely stopped per Dr. Nam stone(for liver biopsy tomorrow). Pt consumed approximately total of more than 2500ml golytely.
[2024-12-05 23:35] LABS: INR 1.2 (0.9-1.3); Partial Thromboplastin Time 27.3 Seconds (22.0-36.0); Prothrombin Time 12.5 Seconds (9.0-12.2)
[2024-12-05 23:55] LABS: AFP Non-Pregnant 2.70 ng/mL (<8.10)
[2024-12-06] VITALS (12 sets, daily range): BP systolic 116–147; BP diastolic 58–101; PULSE 68–90; RESP 16–18; TEMP 36.1–37.2; O2SAT 93–98
[2024-12-06 05:57] LABS: Basophils # (Auto) 0.1 Thou/mm3 (0.0-0.2); Basophils % (Auto) 1 % (0-2.5); Eosinophils # (Auto) 0.1 Thou/mm3 (0.0-0.5); Eosinophils % (Auto) 2 % (0-10); Hematocrit 42.2 % (36.0-46.0); Hemoglobin 13.8 g/dL (12.0-16.0); Immature Granulocytes Auto 0.07 Thou/mm3 (0.00-0.00); Lymphocytes # (Auto) 1.8 Thou/mm3 (1.0-4.8); Lymphocytes % (Auto) 22 % (10-50); Mean Corpuscular HGB Conc 32.7 g/dl (31.0-37.0); Mean Corpuscular Hemoglobin 30.7 pg (25.0-35.0); Mean Corpuscular Volume 94 fL (80-100); Monocytes # (Auto) 0.7 Thou/mm3 (0.0-0.8); Monocytes % (Auto) 8 % (0-12); Neutrophils # (Auto) 5.3 Thou/mm3 (1.8-7.7); Neutrophils % (Auto) 66 % (37-80); Nucleated Red Blood Cell # 0.00 Thou/mm3 (0.00-0.00); Nucleated Red Blood Cell % 0 /100 WBC (0); Platelet Count 207 Thou/mm3 (140-440); RDW Standard Deviation 50.6 fL (36.4-46.3); Red Blood Count 4.50 Miln/mm3 (4.00-5.20); White Blood Count 8.0 Thou/mm3 (3.6-11.0)
[2024-12-06] MEDS: PIPER/TAZO 3.375 GM PREMIX 3.375 GM/50 ML BAG IV (05:57)
[2024-12-06 05:59] LABS: Alanine Aminotransferase 15 U/L (10-49); Albumin, Serum 3.6 gm/dL (3.4-4.8); Albumin/Globulin Ratio 1.9 (1.2-2.2); Alkaline Phosphatase 112 U/L (46-116); Anion Gap 8 (7-16); Aspartate Amino Transferase 15 U/L (0-34); BUN/Creatinine Ratio 11 Ratio (12-20); Bilirubin,Total 0.6 mg/dL (0.3-1.2); Blood Urea Nitrogen 16 mg/dL (9-23); Calcium 9.5 mg/dL (8.3-10.6); Calcium (Corrected) 9.8 mg/dL (8.5-10.1); Carbon Dioxide 27.6 mMol/L (20.0-31.0); Chloride 104 mMol/L (98-107); Creatinine (Component) 1.5 mg/dL (0.6-1.3); Estimated Creatinine Clearance 47.2 mL/min (>60); Globulin 1.9 gm/dL (2.3-3.5); Glucose 85 mg/dL (74-106); Osmolality,Calculated 279 (275-295); Potassium 4.0 mMol/L (3.4-5.1); Sodium 140 mMol/L (136-145); Total Protein 5.5 gm/dL (5.7-8.2); eGFR 38 See Note
[2024-12-06 07:59] LABS: Stool for WBCs Negative (Negative)
[2024-12-06] MEDS: MORPHINE SULF INJ 4 MG/ML VIAL 2 MG IVP ×2 (08:40→18:11)
--- NOTE | 2024-12-06 09:22 | ESPR_ITS ---
Documentation for date of: 12/06/24 Subjective Subjective Interval history: Patient examined at bedside, no acute overnight events. Not feeling well due to anxiety surrounding her liver mass. Still having some abdominal pain and reported some vertigo this morning. Patient was made NPO at midnight in preparation for her liver biopsy. She still had evidence of KADI today and was given a 1L bolus of LR. Oncology was consulted today. Exam Vital Signs Temp Pulse Resp BP Pulse Ox O2 Del Method O2 Flow Rate 97 F 90 18 122/88 H 98 Room Air 2 12/06/24 08:00 12/06/24 08:00 12/06/24 08:00 12/06/24 08:00 12/06/24 08:00 12/06/24 08:00 12/06/24 00:00 FiO2 25 12/04/24 19:35 Narrative Exam General: Middle aged patient who appears to be in no acute distress, though appears uncomfortable. HEENT: No JVD noted. Mucosa moist. Pupils are equal, no diplopia observed. Cardiovascular: Heart sounds soft. Regular rate and rhythm. No murmur appreciated Respiratory: Clear to auscultation bilaterally without wheezes or crackles. Abdomen: Soft, not distended, TTP mostly in the LLQ Skin: Dry, no rashes or bruising Musculoskeletal: No gross injuries. Able to move all 4 extremities. Non edematous lower extremities. Neuro: No focal neuro deficits. Psych: appropriate affect and mood, anxioius Objective Labs 12/07/24 05:20 12/07/24 05:20 Labs: Laboratory Results - last 24 hr 12/05/24 12/05/24 12/06/24 22:43 22:58 05:16 WBC 8.0 RBC 4.50 Hgb 13.8 Hct 42.2 MCV 94 MCH 30.7 MCHC 32.7 RDW Std Deviation 50.6 H Plt Count 207 Neut % (Auto) 66 Lymph % (Auto) 22 [place] % (Auto) 8 Eos % (Auto) 2 Baso % (Auto) 1 Neut # (Auto) 5.3 Lymph # (Auto) 1.8 [place] # (Auto) 0.7 Eos # (Auto) 0.1 Baso # (Auto) 0.1 Immature Gran # (Auto) 0.07 H Absolute Nucleated RBC 0.00 Immature Gran % 1 H Nucleated RBC % 0 PT 12.5 H INR 1.2 APTT 27.3 Sodium 140 Potassium 4.0 Chloride 104 Carbon Dioxide 27.6 Anion Gap 8 BUN 16 Creatinine 1.5 H Estim Creat Clear Calc 47.2 L eGFR 38 L BUN/Creatinine Ratio 11 L Glucose 85 Calculated Osmolality 279 Calcium 9.5 Corrected Calcium 9.8 Total Bilirubin 0.6 AST 15 ALT 15 Alkaline Phosphatase 112 Total Protein 5.5 L Albumin 3.6 Globulin 1.9 L Albumin/Globulin Ratio 1.9 Tumor Marker AFP 2.70 Stool for White Cells 12/06/24 05:36 WBC RBC Hgb Hct MCV MCH MCHC RDW Std Deviation Plt Count Neut % (Auto) Lymph % (Auto) [place] % (Auto) Eos % (Auto) Baso % (Auto) Neut # (Auto) Lymph # (Auto) [place] # (Auto) Eos # (Auto) Baso # (Auto) Immature Gran # (Auto) Absolute Nucleated RBC Immature Gran % Nucleated RBC % PT INR APTT Sodium Potassium Chloride Carbon Dioxide Anion Gap BUN Creatinine Estim Creat Clear Calc eGFR BUN/Creatinine Ratio Glucose Calculated Osmolality Calcium Corrected Calcium Total Bilirubin AST ALT Alkaline Phosphatase Total Protein Albumin Globulin Albumin/Globulin Ratio Tumor Marker AFP Stool for White Cells Negative Quality Measures Quality Measures none Advance care planning discussed with:: patient Assessment & Plan Assessment Current Active Medications: Generic Name Dose Route Start Last Admin Trade Name Freq PRN Reason Stop Dose Admin Acetaminophen 650 mg 12/04/24 16:08 Acetaminophen 325 Mg Tablet PO 01/03/25 16:07 Q6H PRN Fever >100.5 or pain Protocol Allopurinol 100 mg 12/05/24 09:00 12/05/24 09:01 Allopurinol 100 Mg Tablet PO 01/04/25 08:59 100 mg DAILY RAMON Administration Amitriptyline HCl 25 mg 12/05/24 09:00 12/05/24 09:01 Amitriptyline Hcl 25 Mg Tablet PO 01/04/25 08:59 25 mg DAILY RAMON Administration Amlodipine Besylate 5 mg 12/05/24 09:00 12/05/24 09:02 Amlodipine Besylate 5 Mg Tablet PO 01/04/25 08:59 5 mg DAILY RAMON Administration Piperacillin/Tazobactam/Dextrose 3.375 gm in 50 mls @ 12.5 mls/hr 12/04/24 22:00 12/06/24 05:57 Zosyn IV 12/11/24 21:59 12.5 mls/hr Q8HR RAMON Administration Levothyroxine Sodium 112 mcg/ 137 mcg 12/05/24 06:00 12/06/24 05:54 Levothyroxine Sodium 25 mcg PO 01/04/25 05:59 Not Given ACBR RAMON Lisinopril 20 mg 12/05/24 09:00 12/05/24 09:01 Lisinopril 20 Mg Tablet PO 01/04/25 08:59 20 mg DAILY RAMON Administration Morphine Sulfate 2 mg 12/04/24 16:13 12/06/24 08:40 Morphine Sulf Inj 4 Mg/Ml Vial IVP 12/09/24 16:12 2 mg Q4HR PRN Administration PAIN SCALE 7-10 (Severe Ondansetron HCl 4 mg 12/04/24 16:13 12/05/24 01:33 Ondansetron Inj 2 Mg/Ml Inj 2 Ml IVP 01/03/25 16:12 4 mg Q6H PRN Administration NAUSEA OR VOMITING Protocol Plan 69 yof with a h/o htn, dysplidemia, osteoarthritis, and umbilical hernia repair presents to [facility] emergency department on 12/04/2024 with chief complaints of intractable diffuse abdominal pain, intractable nausea, and intractable bloody diarrhea. Admitted for intractable abdominal pain and work up of bloody diarrhea, and found to have a liver mass. #Liver Mass, right lobe #Pulmonary Nodules Incidental finding on CT Abdomen and pelvis, concerning due to irregular margins of the liver mass and multiple pulmonary nodules. MRI demonstrated solid mass with irregular borders. Dr Browning of GI was consulted, recommended bx of the lesion. Greater than 20 metastatic nodules were noted on the non-con chest CT. -NPO midnight for liver bx. -Consult with Dr. Camargo of oncology, appreciate recommendations. #Intractable Abdominal pain #Nausea/Vomiting #Bloody Diarrhea Patient was found to have an elevated white count and non-specific inflammatory changes of the descending colon on presentation in the ED. Differential includes infectious colitis, inflammatory bowel disease, and colon cancer. C dif colitis is less likely, as the patient has not been recently hospitalized nor has she had any systemic antibiotics. Infectious stool studies were negative with the exception of giardia and norovirus. Nausea/vomiting appear to be well controlled with antiemetics. -Pending stool studies, including calprotectin. -Has been on CLD, will try advancing to FLD after biopsy. -Pain control -Antiemetics #KADI Noted on initial labs with Cr 1.6, BUN 26. This most likely represents a pre- renal kadi based on the patient's inability to maintain fluid intake and her diarrhea. This has been persistent despite a few days of mIVF. -avoid nephrotoxic agents - bolus 1L LR - renally dosed medications -daily CMP #HTN stable on home meds -Lisinopril and amlodipine continued #Hypothyroidism stable on home meds. -continue levothyroxine Attending Provider Attestation/Addendum I have discussed and was present for the essential components of the history, physical examination, diagnosis, and treatment plan with the resident. I agree with the patient's care as documented by the resident and amended herein by me. Kieran Felix DO. Although this document has been carefully reviewed, there may still be some phonetic and other typographical errors. These errors are purely grammatical due to imperfections in the software program and should not be construed in any way to compromise the substance of the patient's medical care during this visit. Patient seen and evaluated this AM. No acute events overnight, patient still has complaints of some diarrhea and abdominal pain focused in the lower quadrants. Labs largely unremarkable however patient does have worsening KADI today, creatinine 1.5. Abdominal MRI obtained on 12/05 demonstrating a 7.0 x 6.8 cm mass with irregular margins in the right lobe of the liver indicative of possible hepatocellular carcinoma versus hepatic metastasis. CT chest also demonstrated numerous pulmonary nodules indicative of metastatic disease. Oncology has been consulted, we appreciate recommendations. Due to the patient's severe abdominal pain and bloody diarrhea on admission, gastroenterology does want to perform colonoscopy on an inpatient basis considering likely metastatic disease with associated hematochezia. However wants to obtain liver biopsy first which should happen today or tomorrow. Patient will remain on Zosyn for any possible intra-abdominal infection we will continue to monitor closely while she is here. Patient has been getting morphine sulfate 2 mg IV every 4 hours for her abdominal pain. Appreciate all specialist recommendations.
[2024-12-06 09:52] LABS: Clostridium Difficile PCR Negative (Negative)
[2024-12-06 10:33] LABS: Campylobacter PCR Negative (Negative); Salmonella Species PCR Negative (Negative); Shiga Toxin PCR Negative (Negative); Shigella Species PCR Negative (Negative)
[2024-12-06] MEDS: RINGERS LACTATED 1000 ML 1,000 ML 999 ML IV (11:04)
--- NOTE | 2024-12-06 12:22 | ESCONSULT_ITS ---
HPI Data of Consult Consult date: 12/06/24 Requesting Physician: Jerel Jang MD Primary Care Provider: Tona Metz MD Consult Narrative Reason for consult: Suspected malignancy with mets. History of present illness: Patient is a 69-year-old lady resident of [place] admitted with symptoms of abdominal pain nausea vomiting with rectal bleeding and bloody stools with CT scan abdomen pelvis revealing a 6.3 cm solid mass with irregular margins right lobe of the liver. There was also nonspecific inflammatory changes in the descending colon. Abdominal MRI also revealed 7.0 x 6.8 center mass irregular right over the liver suggestive of either hepatic primary or hepatic mets. Chest CT 12/05/2024 revealed multiple metastatic pulmonary nodules and 16 mm right tracheobronchial lymph node. Patient has seen Dr. Browning who will be performing colonoscopy and biopsy of the liver is also pending. A.m. labs 8.0 WBC hemoglobin 13.8 platelets 207. AFP normal at 2.7 stool panel for various pathogens and inflammation also ordered. Patient referred for oncological consultation. cc:: cc: Jerel Jang MD Past Medical History Family History OTHER FAMILY HX: CHF in father breast cancer in mother both Social History SOCIAL: Lives in [place] denies smoking alcohol use Past Medical History Comments PMH COMMENT: Hypertension arthritis gout hypothyroidism; umbilical hernia repair joint replacement hysterectomy Meds Home Medications and Allergies Home Medications ?Medication ?Instructions ?Recorded ?Confirmed ?Type acetaminophen 300 mg-codeine 60 mg 1 tab PO Q6H PRN pa in (scale score 12/04/24 12/04/24 History tablet 7-10) allopurinol 100 mg tablet 100 mg PO DAILY 12/04/2411/20 History amitriptyline 25 mg tablet 25 mg PO DAILY 12/04/2411/20 History amlodipine 5 mg tablet 5 mg PO DAILY 12/04/2412/04 History levothyroxine 137 mcg tablet 137 mcg PO DAILY 12/04/24 12/04/24 History lisinopril 20 mg tablet 20 mg PO DAILY 12/04/2411/20 History triamterene 75 1 tab PO DAILY 12/04/2411/20 History mg-hydrochlorothiazide 50 mg tablet Allergies Allergy/AdvReac Type Severity Reaction Status Date / Time No Known Allergies Allergy Verified 12/04/24 11:57 Exam Vital Signs Temp Pulse Resp BP Pulse Ox O2 Del Method O2 Flow Rate 97 F 84 18 122/88 H 98 Room Air 2 12/06/24 08:00 12/06/24 10:41 12/06/24 10:41 12/06/24 08:00 12/06/24 10:41 12/06/24 08:00 12/06/24 00:00 FiO2 25 12/04/24 19:35 Narrative Exam Sitting comfortably communicating clearly Results Labs 12/06/24 05:16 12/06/24 05:16 Labs: Short CBC 12/06/24 Range/Units 05:16 WBC 8.0 (3.6-11.0) Thou/mm3 Hgb 13.8 (12.0-16.0) g/dL Hct 42.2 (36.0-46.0) % Plt Count 207 (140-440) Thou/mm3 BMP 12/06/24 05:16 Sodium 140 Potassium 4.0 Chloride 104 Carbon Dioxide 27.6 BUN 16 Creatinine 1.5 H Glucose 85 Calcium 9.5 Liver Function 12/06/24 Range/Units 05:16 Total Bilirubin 0.6 (0.3-1.2) mg/dL AST 15 (0-34) U/L ALT 15 (10-49) U/L Alkaline Phosphatase 112 (46-116) U/L Albumin 3.6 (3.4-4.8) gm/dL Assessment and Plan Additional Assessment & Plan Additional Plan: 1. Suspected malignancy involving liver and lungs. Liver biopsy pending 2. GI symptoms rectal bleeding abdominal pain; colonoscopy pending. 3. Will follow. Thank you for allowing me to evaluate this patient
[2024-12-06] MEDS: SCOPOLAMINE 1 MG TDSY TOP (14:57)
[2024-12-06] MEDS: AMITRIPTYLINE HCL 25 MG TABLET PO (18:11)
--- NOTE | 2024-12-06 22:11 | ESPR_ITS ---
Documentation for date of: 12/06/24 Subjective Subjective Interval history: Patient evaluated Colonoscopy was put on hold because of the liver biopsy which is pending Exam Vital Signs Temp Pulse Resp BP Pulse Ox O2 Del Method O2 Flow Rate 98.9 F 85 18 147/101 H 97 Room Air 2 12/06/24 20:00 12/06/24 20:00 12/06/24 20:00 12/06/24 20:00 12/06/24 20:00 12/06/24 20:00 12/06/24 00:00 FiO2 25 12/04/24 19:35 Objective Labs 12/06/24 05:16 12/06/24 05:16 Labs: Laboratory Results - last 24 hr 12/05/24 12/05/24 12/06/24 22:43 22:58 05:16 WBC 8.0 RBC 4.50 Hgb 13.8 Hct 42.2 MCV 94 MCH 30.7 MCHC 32.7 RDW Std Deviation 50.6 H Plt Count 207 Neut % (Auto) 66 Lymph % (Auto) 22 [place] % (Auto) 8 Eos % (Auto) 2 Baso % (Auto) 1 Neut # (Auto) 5.3 Lymph # (Auto) 1.8 [place] # (Auto) 0.7 Eos # (Auto) 0.1 Baso # (Auto) 0.1 Immature Gran # (Auto) 0.07 H Absolute Nucleated RBC 0.00 Immature Gran % 1 H Nucleated RBC % 0 PT 12.5 H INR 1.2 APTT 27.3 Sodium 140 Potassium 4.0 Chloride 104 Carbon Dioxide 27.6 Anion Gap 8 BUN 16 Creatinine 1.5 H Estim Creat Clear Calc 47.2 L eGFR 38 L BUN/Creatinine Ratio 11 L Glucose 85 Calculated Osmolality 279 Calcium 9.5 Corrected Calcium 9.8 Total Bilirubin 0.6 AST 15 ALT 15 Alkaline Phosphatase 112 Total Protein 5.5 L Albumin 3.6 Globulin 1.9 L Albumin/Globulin Ratio 1.9 Tumor Marker AFP 2.70 Stool for White Cells Stool Campylobacter PCR Stl C. diff Tox B Gene Stl E.coli Shiga Tox PCR Stool Salmonella PCR Stool Shigella PCR 12/06/24 05:36 WBC RBC Hgb Hct MCV MCH MCHC RDW Std Deviation Plt Count Neut % (Auto) Lymph % (Auto) [place] % (Auto) Eos % (Auto) Baso % (Auto) Neut # (Auto) Lymph # (Auto) [place] # (Auto) Eos # (Auto) Baso # (Auto) Immature Gran # (Auto) Absolute Nucleated RBC Immature Gran % Nucleated RBC % PT INR APTT Sodium Potassium Chloride Carbon Dioxide Anion Gap BUN Creatinine Estim Creat Clear Calc eGFR BUN/Creatinine Ratio Glucose Calculated Osmolality Calcium Corrected Calcium Total Bilirubin AST ALT Alkaline Phosphatase Total Protein Albumin Globulin Albumin/Globulin Ratio Tumor Marker AFP Stool for White Cells Negative Stool Campylobacter PCR Negative Stl C. diff Tox B Gene Negative Stl E.coli Shiga Tox PCR Negative Stool Salmonella PCR Negative Stool Shigella PCR Negative Impressions Impression: Metastatic disease with liver mass and pulmonary nodules and GI bleed Pending biopsy of the liver mass I will schedule a colonoscopy with a colonic prep Assessment & Plan A&P Narrative 1. Suspected malignancy involving liver and lungs. Liver biopsy pending 2. GI symptoms rectal bleeding abdominal pain; colonoscopy pending. 3. Will follow. Thank you for allowing me to evaluate this patient Time Spent With Patient Time: Total time spent is greater than 50% in coordination of care (as documented) at patient's floor/unit and/or counseling patient:
[2024-12-07] VITALS (18 sets, daily range): BP systolic 105–153; BP diastolic 56–95; PULSE 66–95; RESP 12–94; TEMP 36.1–36.7; O2SAT 92–98; BMI 43.9
[2024-12-07] MEDS: MORPHINE SULF INJ 4 MG/ML VIAL 2 MG IVP ×2 (00:02→06:00)
[2024-12-07] MEDS: ONDANSETRON INJ 2 MG/ML INJ 2 ML 4 MG IVP ×2 (00:03→06:00)
[2024-12-07 05:53] LABS: Basophils # (Auto) 0.1 Thou/mm3 (0.0-0.2); Basophils % (Auto) 1 % (0-2.5); Eosinophils # (Auto) 0.2 Thou/mm3 (0.0-0.5); Eosinophils % (Auto) 2 % (0-10); Hematocrit 42.0 % (36.0-46.0); Hemoglobin 13.7 g/dL (12.0-16.0); Immature Granulocytes Auto 0.05 Thou/mm3 (0.00-0.00); Lymphocytes # (Auto) 1.6 Thou/mm3 (1.0-4.8); Lymphocytes % (Auto) 21 % (10-50); Mean Corpuscular HGB Conc 32.6 g/dl (31.0-37.0); Mean Corpuscular Hemoglobin 30.7 pg (25.0-35.0); Mean Corpuscular Volume 94 fL (80-100); Monocytes # (Auto) 0.6 Thou/mm3 (0.0-0.8); Monocytes % (Auto) 7 % (0-12); Neutrophils # (Auto) 5.1 Thou/mm3 (1.8-7.7); Neutrophils % (Auto) 68 % (37-80); Nucleated Red Blood Cell # 0.00 Thou/mm3 (0.00-0.00); Nucleated Red Blood Cell % 0 /100 WBC (0); Platelet Count 216 Thou/mm3 (140-440); RDW Standard Deviation 51.0 fL (36.4-46.3); Red Blood Count 4.46 Miln/mm3 (4.00-5.20); White Blood Count 7.5 Thou/mm3 (3.6-11.0)
[2024-12-07 06:29] LABS: Alanine Aminotransferase 14 U/L (10-49); Albumin, Serum 3.8 gm/dL (3.4-4.8); Albumin/Globulin Ratio 2.1 (1.2-2.2); Alkaline Phosphatase 114 U/L (46-116); Anion Gap 10 (7-16); Aspartate Amino Transferase 18 U/L (0-34); BUN/Creatinine Ratio 12 Ratio (12-20); Bilirubin,Total 0.4 mg/dL (0.3-1.2); Blood Urea Nitrogen 14 mg/dL (9-23); Calcium 9.5 mg/dL (8.3-10.6); Calcium (Corrected) 9.7 mg/dL (8.5-10.1); Carbon Dioxide 25.8 mMol/L (20.0-31.0); Chloride 105 mMol/L (98-107); Creatinine (Component) 1.2 mg/dL (0.6-1.3); Estimated Creatinine Clearance 59.0 mL/min (>60); Globulin 1.8 gm/dL (2.3-3.5); Glucose 78 mg/dL (74-106); Magnesium 1.8 mg/dL (1.6-2.6); Osmolality,Calculated 280 (275-295); Phosphorous 3.0 mg/dL (2.4-5.1); Potassium 3.8 mMol/L (3.4-5.1); Sodium 141 mMol/L (136-145); Total Protein 5.6 gm/dL (5.7-8.2); eGFR 50 See Note
--- NOTE | 2024-12-07 10:36 | XR_ITS ---
Examination: CT-guided percutaneous biopsy right lobe liver lesion CT abdomen with intravenous contrast. Date and time of procedure: 2024, 1208 hours INDICATIONS: 7.0 x 6.8 cm mass irregular margins upper right lobe of the liver MRI abdomen December 05, 2024 Informed consent provided. A timeout was completed verifying correct patient, procedure, site and positioning. Technique: Axial 3 mm sections were obtained for localization of the liver lesion Appropriate area is marked. The patient's site was prepped and draped in sterile fashion Maximal sterile barrier technique utilized, including hand hygiene Local anesthesia was obtained with 1% lidocaine. Low dose protocols were performed. One or more of the following dose reduction techniques were used; automated exposure control, adjustment of the mA and/or KV according to patient size, use of iterative reconstruction technique. Utilizing CT fluoroscopic guidance 2 cm core biopsies obtained of the right lobe liver lesion Patient appears in stable condition during this procedure. At completion of the procedure, the patient is in satisfactory condition. Estimated blood loss 2 cc Complete pathology report to follow. Impression: Successful CT-guided percutaneous biopsy right lobe liver lesion
--- NOTE | 2024-12-07 10:37 | PC.NURSE ---
patient has ct liver biopsy scheduled from 12/05/24, consulted hospitalist Dr Cunningham, plan is to still have biopsy done, new order will be placed
[2024-12-07] MEDS: fentaNYL CIT INJ 50 mCg/ML AMP 2ML 100 MCG IVP (12:30)
--- NOTE | 2024-12-07 12:55 | XR_ITS ---
Examination: AP chest single view Technique one AP portable upright chest single view Date and time: December 07, 2024 1306 hours INDICATIONS: Post liver biopsy, lesion near the right hemidiaphragm IMPRESSION: No pneumothorax post biopsy No significant cardiac enlargement Prominent osteopenia IMPRESSION: No pneumothorax post liver biopsy
--- NOTE | 2024-12-07 13:25 | PC.NURSE ---
1254 patient is awake, alert, breathing unlabored, s/p liver biopsy, dressing to right upper abdomen dry with no bleeding, patient transferred to [facility] to do chest xray per MD 1306 xray done in [facility] 1318 chest xray ready by devante Pisano to transfer patient back to room 377 1325 report given to Celia PUENTE, patient transferred to room 377
--- NOTE | 2024-12-07 13:50 | ESPR_ITS ---
<Statement entered by Karla Cunningham MD - 12/07/24 17:05> Patient admitted for intractable abdominal pain and diarrhea Barry to colitis likely in setting of underlying cancer. CT abdomen pelvis showed liver mass 6.3 cm with irregular margins. Inflammatory changes were noted on descending colon. Patient denies knowing about this mass in the past. Chest CT 12/05/2024 revealed multiple metastatic pulmonary nodules and 16 mm right tracheobronchial lymph node. Patient has seen Dr. Browning who will be performing colonoscopy. Biopsy of liver was taken today. Patient will need to follow-up outpatient with oncology Dr. Camargo for results. Continue GoLytely prep for colonoscopy. The patient's management plan was discussed with my attending physician Dr. Felix. Karla Cunningham, PGY-2 Documentation for date of: 12/07/24 Subjective Subjective Interval history: Patient examined at bedside. NAOE. Patient states abdominal pain is present but not too bad. Takes fentanyl q6 hours. States vertigo improved with scopolamine patch. She went for Liver bx with Dr. Browning. Was going to try to go for colonoscopy today, but stool wasn't clear yet. Will try again tomorrow. KADI seemed to improve after 1 L bolus, Cr 1.2 from 1.6 yesterday. Fentanyl was DC to see if patient would be able to tolerate being off IV pain meds. Exam Vital Signs Temp Pulse Resp BP Pulse Ox O2 Del Method O2 Flow Rate 97.5 F 73 17 137/86 H 93 L Room Air 2 12/07/24 13:24 12/07/24 13:24 12/07/24 13:24 12/07/24 13:24 12/07/24 13:24 12/07/24 13:24 12/06/24 00:00 FiO2 25 12/04/24 19:35 Narrative Exam General: Middle aged patient, no acute distress, appears uncomfortable. HEENT: No JVD noted. Mucosa moist. Pupils are equal Cardiovascular: Quiet heart tones. Regular rate and rhythm. No murmur appreciated Respiratory: Clear to auscultation bilaterally without wheezes or crackles. Abdomen: Soft not distended, TTP mostly in the LLQ Skin: Dry, no rashes or bruising Musculoskeletal: No gross injuries. Able to move all 4 extremities. Non edematous lower extremities. Neuro: Alert . No focal neuro deficits. Psych: Appropriate affect and mood, anxious Objective Labs 12/07/24 05:20 12/07/24 05:20 Labs: Laboratory Results - last 24 hr 12/07/24 05:20 WBC 7.5 RBC 4.46 Hgb 13.7 Hct 42.0 MCV 94 MCH 30.7 MCHC 32.6 RDW Std Deviation 51.0 H Plt Count 216 Neut % (Auto) 68 Lymph % (Auto) 21 [place] % (Auto) 7 Eos % (Auto) 2 Baso % (Auto) 1 Neut # (Auto) 5.1 Lymph # (Auto) 1.6 [place] # (Auto) 0.6 Eos # (Auto) 0.2 Baso # (Auto) 0.1 Immature Gran # (Auto) 0.05 H Absolute Nucleated RBC 0.00 Immature Gran % 1 H Nucleated RBC % 0 Sodium 141 Potassium 3.8 Chloride 105 Carbon Dioxide 25.8 Anion Gap 10 BUN 14 Creatinine 1.2 Estim Creat Clear Calc 59.0 L eGFR 50 L BUN/Creatinine Ratio 12 Glucose 78 Calculated Osmolality 280 Calcium 9.5 Corrected Calcium 9.7 Phosphorus 3.0 Magnesium 1.8 Total Bilirubin 0.4 AST 18 ALT 14 Alkaline Phosphatase 114 Total Protein 5.6 L Albumin 3.8 Globulin 1.8 L Albumin/Globulin Ratio 2.1 Quality Measures Quality Measures none Advance care planning discussed with:: patient Assessment & Plan Assessment Current Active Medications: Generic Name Dose Route Start Last Admin Trade Name Freq PRN Reason Stop Dose Admin Acetaminophen 650 mg 12/04/24 16:08 Acetaminophen 325 Mg Tablet PO 01/03/25 16:07 Q6H PRN Fever >100.5 or pain Protocol Allopurinol 100 mg 12/05/24 09:00 12/06/24 18:10 Allopurinol 100 Mg Tablet PO 01/04/25 08:59 100 mg DAILY RAMON Administration Amitriptyline HCl 25 mg 12/05/24 09:00 12/06/24 18:11 Amitriptyline Hcl 25 Mg Tablet PO 01/04/25 08:59 25 mg DAILY RAMON Administration Amlodipine Besylate 5 mg 12/05/24 09:00 12/06/24 18:11 Amlodipine Besylate 5 Mg Tablet PO 01/04/25 08:59 5 mg DAILY RAMON Administration Levothyroxine Sodium 112 mcg/ 137 mcg 12/05/24 06:00 12/07/24 06:01 Levothyroxine Sodium 25 mcg PO 01/04/25 05:59 137 mcg ACBR RAMON Administration Lisinopril 20 mg 12/05/24 09:00 12/06/24 18:10 Lisinopril 20 Mg Tablet PO 01/04/25 08:59 20 mg DAILY RAMON Administration Morphine Sulfate 2 mg 12/04/24 16:13 12/07/24 06:00 Morphine Sulf Inj 4 Mg/Ml Vial IVP 12/09/24 16:12 2 mg Q4HR PRN Administration PAIN SCALE 7-10 (Severe Ondansetron HCl 4 mg 12/04/24 16:13 12/07/24 06:00 Ondansetron Inj 2 Mg/Ml Inj 2 Ml IVP 01/03/25 16:12 4 mg Q6H PRN Administration NAUSEA OR VOMITING Protocol Scopolamine 1 mg 12/06/24 14:30 12/06/24 14:57 Scopolamine 1 Mg Tdsy TOP 01/05/25 14:29 1 mg Q3D RAMON Administration Plan 69 yof with a h/o htn, [place], osteoarthritis, and umbilical hernia repair presents to [facility] emergency department on 12/04/2024 with chief complaints of intractable diffuse abdominal pain, intractable nausea, and intractable bloody diarrhea. Admitted for intractable abdominal pain and work up of bloody diarrhea, and found to have a liver mass. #Liver Mass, right lobe #Pulmonary Nodules Incidental finding on CT Abdomen and pelvis, concerning due to irregular margins of the liver mass and multiple pulmonary nodules. MRI demonstrated solid 7.0x6.8 cm mass with irregular borders. Dr Browning of GI was consulted, recommended bx of the lesion. Greater than 20 metastatic nodules were noted on the non-con chest CT. Liver bx obtained 12/07. Dr Camargo of oncology was consulted, will follow up with liver bx results. -await pathology results of bx. #Intractable Abdominal pain #Nausea/Vomiting #Bloody Diarrhea Patient was found to have an elevated white count and non-specific inflammatory changes of the descending colon on presentation in the ED. Differential includes infectious colitis, inflammatory bowel disease, and colon cancer. C dif colitis is less likely, as the patient has not been recently hospitalized nor has she had any systemic antibiotics. Infectious stool studies pending. Given the severity of patient's illness, Dr. Browning would like to pursue colonoscopy on inpatient basis. Given liver and pulmonary masses, possibility of malignancy causing abdominal pain and bloody diarrhea. -Pending stool studies, including calprotectin. -On Zosyn, started 12/03 -Has been on CLD, golytely for colonoscopy, not clear today, will go tomorrow. -Pain control, IV morphine had been q6 hours, discontinued to see if patient is able to tolerate. -Antiemetics #KADI Noted on initial labs with Cr 1.6, BUN 26. This most likely represents a pre- renal kadi based on the patient's inability to maintain fluid intake and her diarrhea. This has been persistent despite a few days of mIVF. Appears to be improving after 1 L bolu with Cr 1.2, BUN 14. -avoid nephrotoxic agents - renally dosed medications -daily CMP #UTI Cultures grew proteus mirabilis, though patient asymptomatic. - On zosyn for colitis, organism is sensitive. Likely DC zosyn tomorrow. #HTN stable on home meds -Lisinopril and amlodipine continued #Hypothyroidism stable on home meds. -continue levothyroxine Attending Provider Attestation/Addendum I have discussed and was present for the essential components of the history, physical examination, diagnosis, and treatment plan with the resident. I agree with the patient's care as documented by the resident and amended herein by me. Kieran Felix DO. Although this document has been carefully reviewed, there may still be some phonetic and other typographical errors. These errors are purely grammatical due to imperfections in the software program and should not be construed in any way to compromise the substance of the patient's medical care during this visit. Patient seen and evaluated this AM. Still have complaints of lower abdominal pain, focused in the left lower quadrant. Significant labs include an improved creatinine to 1.2 today. Patient has been receiving morphine [id number] for pain. Patient scheduled for liver biopsy today, oncology consulted, appreciate recommendations. We did discuss the potential of outpatient colonoscopy however gastroenterology as stated procedure should be performed inpatient and hopefully will be done tonight considering patient came in with bloody diarrhea. Will continue to monitor closely will appreciate specialist recommendations..
--- NOTE | 2024-12-07 15:14 | PC.SS ---
SS follow up note; Patient is pending an MRI, Liver Biopsy pending as well as Colonoscopy. Patient will discharge home when medically cleared.
[2024-12-07] MEDS: AMITRIPTYLINE HCL 25 MG TABLET PO (18:01)
--- NOTE | 2024-12-07 19:50 | PC.NURSE ---
ENDO CALLED TO CHECK ON PATIENT, PT NOT CLEAR. WILL ENCOURAGED PT TO CONTINUE TAKING GOLYTELY.
--- NOTE | 2024-12-07 20:32 | PD.IMPROG ---
Documentation for date of: 12/07/24 Subjective Subjective Interval history: Patient evaluated She was scheduled for a colonoscopy But she is not clear more GoLytely and procedure scheduled for tomorrow Exam Vital Signs Temp Pulse Resp BP Pulse Ox O2 Del Method O2 Flow Rate 97 F 72 16 152/77 H 96 Room Air 2 12/07/24 16:00 12/07/24 19:25 12/07/24 19:25 12/07/24 18:00 12/07/24 16:00 12/07/24 16:00 12/06/24 00:00 FiO2 25 12/04/24 19:35 Objective Labs 12/07/24 05:20 12/07/24 05:20 Labs: Laboratory Results - last 24 hr 12/07/24 05:20 WBC 7.5 RBC 4.46 Hgb 13.7 Hct 42.0 MCV 94 MCH 30.7 MCHC 32.6 RDW Std Deviation 51.0 H Plt Count 216 Neut % (Auto) 68 Lymph % (Auto) 21 [place] % (Auto) 7 Eos % (Auto) 2 Baso % (Auto) 1 Neut # (Auto) 5.1 Lymph # (Auto) 1.6 [place] # (Auto) 0.6 Eos # (Auto) 0.2 Baso # (Auto) 0.1 Immature Gran # (Auto) 0.05 H Absolute Nucleated RBC 0.00 Immature Gran % 1 H Nucleated RBC % 0 Sodium 141 Potassium 3.8 Chloride 105 Carbon Dioxide 25.8 Anion Gap 10 BUN 14 Creatinine 1.2 Estim Creat Clear Calc 59.0 L eGFR 50 L BUN/Creatinine Ratio 12 Glucose 78 Calculated Osmolality 280 Calcium 9.5 Corrected Calcium 9.7 Phosphorus 3.0 Magnesium 1.8 Total Bilirubin 0.4 AST 18 ALT 14 Alkaline Phosphatase 114 Total Protein 5.6 L Albumin 3.8 Globulin 1.8 L Albumin/Globulin Ratio 2.1 Impressions Impression: Liver mass GI bleeding Continue GoLytely colonoscopy had to be postponed to tomorrow as the patient was not clear Assessment & Plan A&P Narrative 1. Suspected malignancy involving liver and lungs. Liver biopsy pending 2. GI symptoms rectal bleeding abdominal pain; colonoscopy pending. 3. Will follow. Thank you for allowing me to evaluate this patient Time Spent With Patient Time: Total time spent is greater than 50% in coordination of care (as documented) at patient's floor/unit and/or counseling patient:
[2024-12-07] MEDS: ACETAMINOPHEN 325 MG TABLET 650 MG PO (20:46)
[2024-12-08] VITALS (8 sets, daily range): BP systolic 114–127; BP diastolic 65–88; PULSE 63–95; RESP 17–94; TEMP 36.2–36.4; O2SAT 94–98
[2024-12-08] MEDS: ONDANSETRON INJ 2 MG/ML INJ 2 ML 4 MG IVP ×2 (00:59→08:24)
[2024-12-08] MEDS: MORPHINE SULF INJ 4 MG/ML VIAL 2 MG IVP (02:16)
[2024-12-08 06:20] LABS: Basophils # (Auto) 0.1 Thou/mm3 (0.0-0.2); Basophils % (Auto) 1 % (0-2.5); Eosinophils # (Auto) 0.1 Thou/mm3 (0.0-0.5); Eosinophils % (Auto) 2 % (0-10); Hematocrit 41.9 % (36.0-46.0); Hemoglobin 13.5 g/dL (12.0-16.0); Immature Granulocytes Auto 0.07 Thou/mm3 (0.00-0.00); Lymphocytes # (Auto) 1.8 Thou/mm3 (1.0-4.8); Lymphocytes % (Auto) 24 % (10-50); Mean Corpuscular HGB Conc 32.2 g/dl (31.0-37.0); Mean Corpuscular Hemoglobin 30.5 pg (25.0-35.0); Mean Corpuscular Volume 95 fL (80-100); Monocytes # (Auto) 0.5 Thou/mm3 (0.0-0.8); Monocytes % (Auto) 6 % (0-12); Neutrophils # (Auto) 5.0 Thou/mm3 (1.8-7.7); Neutrophils % (Auto) 67 % (37-80); Nucleated Red Blood Cell # 0.00 Thou/mm3 (0.00-0.00); Nucleated Red Blood Cell % 0 /100 WBC (0); Platelet Count 196 Thou/mm3 (140-440); RDW Standard Deviation 50.4 fL (36.4-46.3); Red Blood Count 4.43 Miln/mm3 (4.00-5.20); White Blood Count 7.6 Thou/mm3 (3.6-11.0)
[2024-12-08 06:40] LABS: Alanine Aminotransferase 15 U/L (10-49); Albumin, Serum 3.5 gm/dL (3.4-4.8); Albumin/Globulin Ratio 1.8 (1.2-2.2); Alkaline Phosphatase 110 U/L (46-116); Anion Gap 12 (7-16); Aspartate Amino Transferase 19 U/L (0-34); BUN/Creatinine Ratio 8 Ratio (12-20); Bilirubin,Total 0.4 mg/dL (0.3-1.2); Blood Urea Nitrogen 10 mg/dL (9-23); Calcium 9.0 mg/dL (8.3-10.6); Calcium (Corrected) 9.4 mg/dL (8.5-10.1); Carbon Dioxide 27.3 mMol/L (20.0-31.0); Chloride 103 mMol/L (98-107); Creatinine (Component) 1.2 mg/dL (0.6-1.3); Estimated Creatinine Clearance 58.0 mL/min (>60); Globulin 2.0 gm/dL (2.3-3.5); Glucose 68 mg/dL (74-106); Magnesium 1.8 mg/dL (1.6-2.6); Osmolality,Calculated 280 (275-295); Phosphorous 2.6 mg/dL (2.4-5.1); Potassium 3.8 mMol/L (3.4-5.1); Sodium 142 mMol/L (136-145); Total Protein 5.5 gm/dL (5.7-8.2); eGFR 50 See Note
[2024-12-08] MEDS: AMITRIPTYLINE HCL 25 MG TABLET PO (08:56)
[2024-12-08] MEDS: NA SU/NAHCO3/KC/PEG (Golytely) 4,000 ML BTL 4000 ML PO (09:41)
--- NOTE | 2024-12-08 11:51 | ESPR_ITS ---
<Statement entered by Karla Cunningham MD - 12/08/24 16:17> Note reviewed, I agree with most of its contents and agree with the patient's care as documented by Dr. Martinez The patient's management plan was discussed with my attending physician Dr. Felix. Karla Cunningham, PGY-2 Documentation for date of: 12/08/24 Subjective Subjective Interval history: Patient examined at bedside. NAOE. Patient still experiencing left lower quadrant pain that necessitated IV morphine last night. Stool is clearing with golytely. Liver bx conducted yesterday (12/07). Colonoscopy planned for today. Oncology following up with results. Starting patient on home pain regimen today to see if she will be able to tolerate abdominal pain at home. Exam Vital Signs Temp Pulse Resp BP Pulse Ox O2 Del Method O2 Flow Rate 97.3 F 95 18 125/88 H 98 Room Air 2 12/08/24 08:00 12/08/24 08:56 12/08/24 08:00 12/08/24 08:56 12/08/24 08:00 12/08/24 08:00 12/06/24 00:00 FiO2 25 12/04/24 19:35 Narrative Exam General: Middle aged patient, no acute distress, appears uncomfortable. HEENT: No JVD noted. Mucosa moist. Pupils are equal Cardiovascular: Quiet heart tones. Regular rate and rhythm. No murmur appreciated Respiratory: Clear to auscultation bilaterally without wheezes or crackles. Abdomen: Soft not distended, TTP mostly in the low abdomen and LLQ. Skin: Dry, no rashes or bruising Musculoskeletal: No gross injuries. Able to move all 4 extremities. Non edematous lower extremities. Neuro: Alert . No focal neuro deficits. Psych: Appropriate affect and mood, anxious Objective Labs 12/09/24 04:37 12/09/24 04:37 Labs: Laboratory Results - last 24 hr 12/08/24 04:33 WBC 7.6 RBC 4.43 Hgb 13.5 Hct 41.9 MCV 95 MCH 30.5 MCHC 32.2 RDW Std Deviation 50.4 H Plt Count 196 Neut % (Auto) 67 Lymph % (Auto) 24 [place] % (Auto) 6 Eos % (Auto) 2 Baso % (Auto) 1 Neut # (Auto) 5.0 Lymph # (Auto) 1.8 [place] # (Auto) 0.5 Eos # (Auto) 0.1 Baso # (Auto) 0.1 Immature Gran # (Auto) 0.07 H Absolute Nucleated RBC 0.00 Immature Gran % 1 H Nucleated RBC % 0 Sodium 142 Potassium 3.8 Chloride 103 Carbon Dioxide 27.3 Anion Gap 12 BUN 10 Creatinine 1.2 Estim Creat Clear Calc 58.0 L eGFR 50 L BUN/Creatinine Ratio 8 L Glucose 68 L Calculated Osmolality 280 Calcium 9.0 Corrected Calcium 9.4 Phosphorus 2.6 Magnesium 1.8 Total Bilirubin 0.4 AST 19 ALT 15 Alkaline Phosphatase 110 Total Protein 5.5 L Albumin 3.5 Globulin 2.0 L Albumin/Globulin Ratio 1.8 Quality Measures Quality Measures none Advance care planning discussed with:: patient Assessment & Plan Assessment Current Active Medications: Generic Name Dose Route Start Last Admin Trade Name Freq PRN Reason Stop Dose Admin Acetaminophen 650 mg 12/08/24 11:24 Acetaminophen 325 Mg Tablet PO 01/03/25 16:07 Q6H PRN Fever >100.5 or pain 3-6 Protocol Allopurinol 100 mg 12/05/24 09:00 12/08/24 08:56 Allopurinol 100 Mg Tablet PO 01/04/25 08:59 100 mg DAILY RAMON Administration Amitriptyline HCl 25 mg 12/05/24 09:00 12/08/24 08:56 Amitriptyline Hcl 25 Mg Tablet PO 01/04/25 08:59 25 mg DAILY RAMON Administration Amlodipine Besylate 5 mg 12/05/24 09:00 12/08/24 08:56 Amlodipine Besylate 5 Mg Tablet PO 01/04/25 08:59 5 mg DAILY RAMON Administration Levothyroxine Sodium 112 mcg/ 137 mcg 12/05/24 06:00 12/08/24 05:39 Levothyroxine Sodium 25 mcg PO 01/04/25 05:59 137 mcg ACBR RAMON Administration Lisinopril 20 mg 12/05/24 09:00 12/08/24 08:56 Lisinopril 20 Mg Tablet PO 01/04/25 08:59 20 mg DAILY RAMON Administration Ondansetron HCl 4 mg 12/04/24 16:13 12/08/24 08:24 Ondansetron Inj 2 Mg/Ml Inj 2 Ml IVP 01/03/25 16:12 4 mg Q6H PRN Administration NAUSEA OR VOMITING Protocol Scopolamine 1 mg 12/06/24 14:30 12/06/24 14:57 Scopolamine 1 Mg Tdsy TOP 01/05/25 14:29 1 mg Q3D RAMON Administration Plan 69 yof with a h/o htn, [place], osteoarthritis, and umbilical hernia repair presents to [facility] emergency department on 12/04/2024 with chief complaints of intractable diffuse abdominal pain, intractable nausea, and intractable bloody diarrhea. Admitted for intractable abdominal pain and work up of bloody diarrhea, and found to have a liver mass. #Liver Mass, right lobe #Pulmonary Nodules Incidental finding on CT Abdomen and pelvis, concerning due to irregular margins of the liver mass and multiple pulmonary nodules. MRI demonstrated solid 7.0x6.8 cm mass with irregular borders. Dr Browning of GI was consulted, recommended bx of the lesion. Greater than 20 metastatic nodules were noted on the non-con chest CT. Liver bx obtained 12/07. Dr Camargo of oncology was consulted, will follow up with liver bx results. -await pathology results of bx. #Intractable Abdominal pain #Nausea/Vomiting #Bloody Diarrhea Patient was found to have an elevated white count and non-specific inflammatory changes of the descending colon on presentation in the ED. Differential includes infectious colitis, inflammatory bowel disease, and colon cancer. C dif colitis is less likely, as the patient has not been recently hospitalized nor has she had any systemic antibiotics. Infectious stool studies pending. Given the severity of patient's illness, Dr. Browning would like to pursue colonoscopy on inpatient basis. Given liver and pulmonary masses, possibility of malignancy causing abdominal pain and bloody diarrhea. -Pending stool studies, including calprotectin. -Has been on CLD, golytely for colonoscopy, will likely go today. -Breakthrough pain last night, IV morphine given. Started on home pain regimen, acetaminophen-cod 30mg tab x2 BID. -Antiemetics #KADI Noted on initial labs with Cr 1.6, BUN 26. This most likely represents a pre- renal kadi based on the patient's inability to maintain fluid intake and her diarrhea. This has been persistent despite a few days of mIVF. Appears to be improving after 1 L bolu with Cr 1.2, BUN 14 yesterday. Cr stable at 1.2 today. Resolved. #UTI Cultures grew proteus mirabilis, though patient asymptomatic. - On zosyn for colitis, organism is sensitive. This was discontinued after 3 day course. #HTN stable on home meds -Lisinopril and amlodipine continued #Hypothyroidism stable on home meds. -continue levothyroxine Health Maintenance: DVT prophylaxis: SCDs Diet: CLD [place]: No Lines: PIV CODE STATUS: Full code Disposition: DC pending adequate pain control. Attending Provider Attestation/Addendum I have discussed and was present for the essential components of the history, physical examination, diagnosis, and treatment plan with the resident. I agree with the patient's care as documented by the resident and amended herein by me. Kieran Felix DO. Although this document has been carefully reviewed, there may still be some phonetic and other typographical errors. These errors are purely grammatical due to imperfections in the software program and should not be construed in any way to compromise the substance of the patient's medical care during this visit. Patient seen and evaluated this AM. No acute events overnight, vital signs stable, patient afebrile. Patient states her abdominal pain is improved. We did check with gastroenterology about having colonoscopy performed outpatient however he prefers to do it inpatient while she was here however was not clear today after GoLytely hence we will attempt tomorrow. Hemoglobin is stable, no repeat episodes of hematochezia. Biopsy results pending, she will follow-up outpatient for these. Continue to monitor closely while she is here.
[2024-12-08] MEDS: ACETAMINOPHEN 325 MG TABLET 650 MG PO (14:08)
--- NOTE | 2024-12-08 15:12 | PC.SS ---
Rounding: Pending colonoscopy, dc plan home when ready
[2024-12-08] MEDS: ACETAMINOPHEN w/COD 300-30 TABLET 2 TAB PO ×2 (15:17→21:16)
--- NOTE | 2024-12-08 18:49 | ESPR_ITS ---
Documentation for date of: 12/08/24 Subjective Subjective Interval history: Patient extremely uncooperative might need nasogastric tube placement for clean the colon out as there is still not clear Exam Vital Signs Temp Pulse Resp BP Pulse Ox O2 Del Method O2 Flow Rate 97.6 F 84 18 127/73 97 Room Air 2 12/08/24 12:00 12/08/24 12:00 12/08/24 12:00 12/08/24 12:00 12/08/24 12:00 12/08/24 12:00 12/06/24 00:00 FiO2 12/04/24 19:35 Objective Labs 12/08/24 04:33 12/08/24 04:33 Labs: Laboratory Results - last 24 hr 12/08/24 04:33 WBC 7.6 RBC 4.43 Hgb 13.5 Hct 41.9 MCV 95 MCH 30.5 MCHC 32.2 RDW Std Deviation 50.4 H Plt Count 196 Neut % (Auto) 67 Lymph % (Auto) 24 [place] % (Auto) 6 Eos % (Auto) 2 Baso % (Auto) 1 Neut # (Auto) 5.0 Lymph # (Auto) 1.8 [place] # (Auto) 0.5 Eos # (Auto) 0.1 Baso # (Auto) 0.1 Immature Gran # (Auto) 0.07 H Absolute Nucleated RBC 0.00 Immature Gran % 1 H Nucleated RBC % 0 Sodium 142 Potassium 3.8 Chloride 103 Carbon Dioxide 27.3 Anion Gap 12 BUN 10 Creatinine 1.2 Estim Creat Clear Calc 58.0 L eGFR 50 L BUN/Creatinine Ratio 8 L Glucose 68 L Calculated Osmolality 280 Calcium 9.0 Corrected Calcium 9.4 Phosphorus 2.6 Magnesium 1.8 Total Bilirubin 0.4 AST 19 ALT 15 Alkaline Phosphatase 110 Total Protein 5.5 L Albumin 3.5 Globulin 2.0 L Albumin/Globulin Ratio 1.8 Impressions Impression: Rectal bleeding liver mass biopsy results pending Placement of NGT to give GoLytely so the procedure can be done tomorrow morning Assessment & Plan A&P Narrative 1. Suspected malignancy involving liver and lungs. Liver biopsy pending 2. GI symptoms rectal bleeding abdominal pain; colonoscopy pending. 3. Will follow. Thank you for allowing me to evaluate this patient Time Spent With Patient Time: Total time spent is greater than 50% in coordination of care (as documented) at patient's floor/unit and/or counseling patient:
[2024-12-09] VITALS (23 sets, daily range): BP systolic 101–159; BP diastolic 62–108; PULSE 61–118; RESP 12–95; TEMP 36.1–36.9; O2SAT 92–99
--- NOTE | 2024-12-09 | PC.NURSE ---
pt refused NG tube. Dr. Browning was made aware at bedside.
--- NOTE | 2024-12-09 01:08 | PC.NURSE ---
pt refused NG tube, Dr. Browning was made aware at bedside.
[2024-12-09 05:04] LABS: Basophils # (Auto) 0.1 Thou/mm3 (0.0-0.2); Basophils % (Auto) 1 % (0-2.5); Eosinophils # (Auto) 0.2 Thou/mm3 (0.0-0.5); Eosinophils % (Auto) 2 % (0-10); Hematocrit 44.1 % (36.0-46.0); Hemoglobin 14.3 g/dL (12.0-16.0); Immature Granulocytes Auto 0.04 Thou/mm3 (0.00-0.00); Lymphocytes # (Auto) 1.7 Thou/mm3 (1.0-4.8); Lymphocytes % (Auto) 21 % (10-50); Mean Corpuscular HGB Conc 32.4 g/dl (31.0-37.0); Mean Corpuscular Hemoglobin 30.3 pg (25.0-35.0); Mean Corpuscular Volume 93 fL (80-100); Monocytes # (Auto) 0.5 Thou/mm3 (0.0-0.8); Monocytes % (Auto) 6 % (0-12); Neutrophils # (Auto) 5.6 Thou/mm3 (1.8-7.7); Neutrophils % (Auto) 70 % (37-80); Nucleated Red Blood Cell # 0.00 Thou/mm3 (0.00-0.00); Nucleated Red Blood Cell % 0 /100 WBC (0); Platelet Count 209 Thou/mm3 (140-440); RDW Standard Deviation 50.4 fL (36.4-46.3); Red Blood Count 4.72 Miln/mm3 (4.00-5.20); White Blood Count 8.0 Thou/mm3 (3.6-11.0)
[2024-12-09 05:53] LABS: Anion Gap 10 (7-16); BUN/Creatinine Ratio 8 Ratio (12-20); Blood Urea Nitrogen 9 mg/dL (9-23); Carbon Dioxide 28.1 mMol/L (20.0-31.0); Chloride 103 mMol/L (98-107); Creatinine (Component) 1.2 mg/dL (0.6-1.3); Estimated Creatinine Clearance 58.0 mL/min (>60); Glucose 79 mg/dL (74-106); Potassium 4.1 mMol/L (3.4-5.1); Sodium 141 mMol/L (136-145); eGFR 50 See Note
[2024-12-09 05:54] LABS: Alanine Aminotransferase 15 U/L (10-49); Albumin, Serum 3.8 gm/dL (3.4-4.8); Albumin/Globulin Ratio 1.8 (1.2-2.2); Alkaline Phosphatase 119 U/L (46-116); Aspartate Amino Transferase 20 U/L (0-34); Bilirubin,Total 0.4 mg/dL (0.3-1.2); Calcium 9.3 mg/dL (8.3-10.6); Calcium (Corrected) 9.5 mg/dL (8.5-10.1); Globulin 2.1 gm/dL (2.3-3.5); Magnesium 1.8 mg/dL (1.6-2.6); Osmolality,Calculated 278 (275-295); Phosphorous 2.7 mg/dL (2.4-5.1); Total Protein 5.9 gm/dL (5.7-8.2)
[2024-12-09] MEDS: ACETAMINOPHEN w/COD 300-30 TABLET 2 TAB PO ×2 (06:08→11:52)
[2024-12-09] MEDS: SODIUM CHLORIDE 0.9% 500 ML 500 ML 20 ML IV (06:11)
[2024-12-09] MEDS: AMITRIPTYLINE HCL 25 MG TABLET PO (08:34)
[2024-12-09] MEDS: LIDOCAINE 5% 1 PATCH TOP (11:52)
[2024-12-09] MEDS: SCOPOLAMINE 1 MG TDSY TOP (14:01)
--- NOTE | 2024-12-09 17:15 | ESDS_ITS ---
Planned Discharge Date 12/09/24 DS: Providers Provider Date of admission: 12/04/24 16:08 Primary care physician: Tona Metz MD Admitting Provider: Jerel Jang MD Attending Provider on Admission: Logan Felix DO Consults: 12/04/24 15:02 Consult to Gastroenterology Stat Comment: Consulting Provider: Jaylon Browning 12/06/24 10:42 Consult to Oncology Routine Comment: Liver mass, possible mets Consulting Provider: Jamey Camargo Attending Provider on DC: Logan Felix DO Discharging Provider: Logan Felix DO DS: Diagnosis Problem List Completed Was Problem List Reviewed/Reconciled?: Yes Hospital Course Hospital Course Hospital course: Reason for hospitalization: diarrhea, abdominal pain, liver mass findings 69 yof with a h/o htn, hypothyroidism, osteoarthritis, gout, and a surgical history of umbilical hernia repair who presented to [facility] on 12/04/2024 due to 4 days of nausea, vomiting, severe abdominal pain, and bloody diarrhea. She endorses fever, bright red blood in the bowl, inability to tolerate food. Of note, she endorses 100 pound weight loss through dietary changes alone. Denied colonoscopy in the past. Vitals were stable, hemoglobin on admission 15.7. She was admitted for workup of diarrhea. CT abdomen pelvis showed 6.3 cm solid mass with irregular margins right lobe of the liver. There was also nonspecific inflammatory changes in the descending colon. Abdominal MRI also revealed 7.0 x 6.8 center mass irregular right over the liver suggestive of either hepatic primary or hepatic mets. Chest CT 12/05/2024 revealed multiple metastatic pulmonary nodules and 16 mm right tracheobronchial lymph node. Oncology Dr. Camargo was consulted. Biopsy of liver was completed on 12/07, results are pending. Patient will need to follow-up outpatient for these results. Hemoglobin remained stable during hospitalization. Colonoscopy was completed on 12/09 before admission. Patient to also follow-up with GI for results of colonoscopy including the biopsies. She will need close monitoring after discharge for full workup of underlying cancer. Patient is now in stable condition and ready for discharge. Discharge Recommendations: Follow-up outpatient with GI for results of colonoscopy with biopsies. Follow-up outpatient with oncology Dr. Camargo for results of liver biopsy. Repeat imaging needed or biopsy of lung nodules. Follow-up with PCP in 1-2 weeks. Continue previous medications. Hospital Diagnoses: #Liver Mass, right lobe #Pulmonary Nodules #Intractable Abdominal pain #Nausea/Vomiting #Bloody Diarrhea #KADI #UTI #HTN #Hypothyroidism The patient's management plan was discussed with my attending physician Dr. Felix. Karla Cunningham MD, PGY-2 Time Spent with Patient Time attestation: Total time spent providing and/or coordinating discharge services: Time spent: Greater than 30 minutes Exam Vital Signs Temp Pulse Resp BP Pulse Ox O2 Del Method O2 Flow Rate 96.9 F 75 18 126/66 96 Room Air 2 12/09/24 16:00 12/09/24 16:00 12/09/24 16:00 12/09/24 16:12/09/24 16:12/09/24 16:12/06/24 00:00 FiO2 25 12/04/24 19:35 Narrative Exam General: Middle aged patient, no acute distress, appears uncomfortable. HEENT: No JVD noted. Mucosa moist. Pupils are equal Cardiovascular: Quiet heart tones. Regular rate and rhythm. No murmur appreciated Respiratory: Clear to auscultation bilaterally without wheezes or crackles. Abdomen: Soft not distended, TTP mostly in the low abdomen and LLQ. Skin: Dry, no rashes or bruising Musculoskeletal: No gross injuries. Able to move all 4 extremities. Non edematous lower extremities. Neuro: Alert . No focal neuro deficits. Psych: Appropriate affect and mood, anxious Discharge Plan Plan Patient Disposition: HOME (Self Care) Patient condition on transfer: Stable Prescriptions/Referrals Prescriptions/Med Rec: Continued lisinopril 20 mg tablet 20 mg PO DAILY amitriptyline 25 mg tablet 25 mg PO DAILY levothyroxine 137 mcg tablet 137 mcg PO DAILY acetaminophen-codeine 300-60 mg tablet 1 tab PO Q6H PRN (Reason: pain (scale score 7-10)) Patient Comments: TAKE 1 TABLET BY MOUTH EVERY 6 HOURS NEEDED amlodipine 5 mg tablet 5 mg PO DAILY triamterene-hydrochlorothiazid 75-50 mg tablet 1 tab PO DAILY Patient Comments: TAKE 1 TABLET BY MOUTH DAILY allopurinol 100 mg tablet 100 mg PO DAILY Referrals: Tona Metz MD [Primary Care Provider, Family Practice] Patient/Caregiver Discharge Instructions Other Discharge Activity Instructions:: Follow-up outpatient with GI for results of colonoscopy with biopsies. Follow-up outpatient with oncology Dr. Camargo for results of liver biopsy. Repeat imaging needed or biopsy of lung nodules. Follow-up with PCP in 1-2 weeks. Continue previous medications. Education Materials: Measuring Your Pain, Acute Kidney Failure Dc, Blood Pressure Check Steps, Understanding Colitis Print Language: Kittitian Stand Alone Forms: Berkley Award Info., Patient Portal Info Letter Discharge Order Discharge Orders: Discharge (Routine); Ordered 12/09/24 Ordered By: Candelario Thomas Quality Discharge Quality Measures VTE prophylaxis Attestestation Attraeannation I have discussed and was present for the essential components of the discharge history, physical examination, diagnosis, and discharge treatment plan with the resident. I agree with the patient's discharge care as documented by the resident and amended herein by me. Kieran Felix DO. The patient understood all discharge instructions, all questions were answered satisfactorily. The patient was instructed to return to the Emergency Department is symptoms worsened or persisted. Patient was stable, afebrile, tolerating p.o. intake and ambulatory at time of discharge home. Patient will need further workup for liver mass and numerous pulmonary nodules, which is suspected to be metastatic disease, will need to follow-up with her primary care physician within 1 week of discharge. Colonoscopy significant for hemorrhoids and diverticulosis however no apparent sign of bleeding or masses seen however biopsy results pending. All questions answered satisfactory, patient cleared for discharge. Although this document has been carefully reviewed, there may still be some phonetic and other typographical errors. These errors are purely grammatical due to imperfections in the software program and should not be construed in any way to compromise the substance of the patient's medical care during this visit.
--- NOTE | 2024-12-09 18:15 | SUR.PHASEI ---
pt received from OR in recovery bay 1. pt awake and alert, breathing unlabored on 2l nc. v/s stable. report received from Elizabeth PUENTE.
--- NOTE | 2024-12-09 18:21 | SUR.PHASEI ---
pt able to tolerate ice chips without difficulty swallowing or nausea/vomiting.
--- NOTE | 2024-12-09 18:30 | SUR.PHASEI ---
pt awake and alert, breathing unlabored on room air. v/s stable. report called to Emmie PUENTE. pt will be transferred to room at this time.
--- NOTE | 2024-12-09 19:34 | PC.NURSE ---
Dr. Horne was made aware that Pt is requesting her discharge to be postponed for tomorrow since she does not have a ride home. Per MD, DC order will be cancelled and rescheduled for 12/10.
--- NOTE | 2024-12-09 22:58 | PC.NURSE ---
Called Dr. Logan to ask if they could cancel the discharge order since patient does not have a ride home, [place], stated that they cannot cancel the order that not having a ride home is not a reason to cancel dc orders.
[2024-12-10] VITALS: BP 113/63; PULSE 85; RESP 17; TEMP 36.1; O2SAT 94
[2024-12-10 04:00] VITALS: BP 147/73; PULSE 69; RESP 18; TEMP 36.6; O2SAT 94
[2024-12-10 05:11] LABS: Basophils # (Auto) 0.1 Thou/mm3 (0.0-0.2); Basophils % (Auto) 1 % (0-2.5); Eosinophils # (Auto) 0.1 Thou/mm3 (0.0-0.5); Eosinophils % (Auto) 2 % (0-10); Hematocrit 40.9 % (36.0-46.0); Hemoglobin 12.9 g/dL (12.0-16.0); Immature Granulocytes Auto 0.06 Thou/mm3 (0.00-0.00); Lymphocytes # (Auto) 1.8 Thou/mm3 (1.0-4.8); Lymphocytes % (Auto) 22 % (10-50); Mean Corpuscular HGB Conc 31.5 g/dl (31.0-37.0); Mean Corpuscular Hemoglobin 30.3 pg (25.0-35.0); Mean Corpuscular Volume 96 fL (80-100); Monocytes # (Auto) 0.6 Thou/mm3 (0.0-0.8); Monocytes % (Auto) 7 % (0-12); Neutrophils # (Auto) 5.7 Thou/mm3 (1.8-7.7); Neutrophils % (Auto) 68 % (37-80); Nucleated Red Blood Cell # 0.00 Thou/mm3 (0.00-0.00); Nucleated Red Blood Cell % 0 /100 WBC (0); Platelet Count 226 Thou/mm3 (140-440); RDW Standard Deviation 51.9 fL (36.4-46.3); Red Blood Count 4.26 Miln/mm3 (4.00-5.20); White Blood Count 8.3 Thou/mm3 (3.6-11.0)
[2024-12-10] MEDS: ACETAMINOPHEN w/COD 300-30 TABLET 2 TAB PO (05:11)
[2024-12-10 05:46] LABS: Alanine Aminotransferase 12 U/L (10-49); Albumin, Serum 3.2 gm/dL (3.4-4.8); Albumin/Globulin Ratio 1.6 (1.2-2.2); Alkaline Phosphatase 107 U/L (46-116); Anion Gap 10 (7-16); Aspartate Amino Transferase 15 U/L (0-34); BUN/Creatinine Ratio 6 Ratio (12-20); Bilirubin,Total 0.3 mg/dL (0.3-1.2); Blood Urea Nitrogen 7 mg/dL (9-23); Calcium 8.9 mg/dL (8.3-10.6); Calcium (Corrected) 9.5 mg/dL (8.5-10.1); Carbon Dioxide 27.2 mMol/L (20.0-31.0); Chloride 105 mMol/L (98-107); Creatinine (Component) 1.2 mg/dL (0.6-1.3); Estimated Creatinine Clearance 58.0 mL/min (>60); Globulin 2.0 gm/dL (2.3-3.5); Glucose 88 mg/dL (74-106); Magnesium 1.8 mg/dL (1.6-2.6); Osmolality,Calculated 280 (275-295); Phosphorous 3.3 mg/dL (2.4-5.1); Potassium 4.1 mMol/L (3.4-5.1); Sodium 142 mMol/L (136-145); Total Protein 5.2 gm/dL (5.7-8.2); eGFR 50 See Note
[2024-12-10 07:46] VITALS: PULSE 79; RESP 18; RESP 95
[2024-12-10 08:00] VITALS: BP 157/81; PULSE 67; RESP 18; TEMP 36.3; O2SAT 97
[2024-12-11 06:33] LABS: Giardia Result DETECTED; Norovirus, EIA (Stool)* NOT DETECTED
[2024-12-12 06:35] LABS: ANCA Screen NEGATIVE (NEGATIVE); Myeloperoxidase Ab <1.0 AI (<1.0); Proteinase-3 Ab <1.0 AI (<1.0)
[2024-12-13 06:28] LABS: Calprotectin, Stool* 172 mcg/g
--- NOTE | 2024-12-22 11:58 | ESPR_ITS ---
Documentation for date of: 12/05/24 Subjective Subjective Interval history: Patient examined at bedside, NAOE. Still having abdominal pain, not vomiting. MRI of the liver today demonstrated 7.0 x 6.8 cm mass irregular margins right lobe of the liver, consider primary hepatocellular carcinoma, hepatic metastasis. Consulted GI, Dr. Browning recommending bx of the mass tomrrow. NPO Midnight. Exam Vital Signs Temp Pulse Resp BP Pulse Ox O2 Del Method O2 Flow Rate 97.4 F 67 18 157/81 H 97 Room Air 2 12/10/24 08:00 12/10/24 08:00 12/10/24 08:00 12/10/24 08:00 12/10/24 08:00 12/10/24 08:00 12/09/24 18:10 FiO2 25 12/04/24 19:35 Narrative Exam General: Middle aged patient, laying in bed, appears uncomfortable. HEENT: Mucosa moist. Pupils are equal, non-icteric sclera. Cardiovascular: Normal S1 and S2. Regular rate and rhythm. No murmur appreciated Respiratory: Clear to auscultation bilaterally without wheezes or crackles. Abdomen: Soft, non-distended, tender to palpation, worse around the left lower quadrant. Skin: Dry, no rashes or bruising Musculoskeletal: No gross injuries. Able to move all 4 extremities. Non edematous lower extremities. Neuro: Alert and oriented x3. No focal neuro deficits. Objective Labs 12/10/24 04:53 12/10/24 04:53 Quality Measures Quality Measures VTE prophylaxis Advance care planning discussed with:: patient Assessment & Plan Plan 69 yof with a h/o htn, dysplidemia, osteoarthritis, and umbilical hernia repair presents to [facility] emergency department on 12/04/2024 with chief complaints of intractable diffuse abdominal pain, intractable nausea, and intractable bloody diarrhea. Admitted for intractable abdominal pain and work up of bloody diarrhea, and found to have a liver mass. #Liver Mass, right lobe #Pulmonary Nodules Incidental finding on CT Abdomen and pelvis, concerning due to irregular margins of the liver mass and multiple pulmonary nodules. MRI demonstrated solid mass with irregular borders. Dr Browning of GI was consulted, recommended bx of the lesion. Greater than 20 metastatic nodules were noted on the non-con chest CT. -NPO midnight for liver bx. -Consult with Dr. Camargo of oncology, appreciate recommendations. #Intractable Abdominal pain #Nausea/Vomiting #Bloody Diarrhea Patient was found to have an elevated white count and non-specific inflammatory changes of the descending colon on presentation in the ED. Differential includes infectious colitis, inflammatory bowel disease, and colon cancer. C dif colitis is less likely, as the patient has not been recently hospitalized nor has she had any systemic antibiotics. Infectious stool studies were negative with the exception of giardia and norovirus. Nausea/vomiting appear to be well controlled with antiemetics. -Pending stool studies, including calprotectin. -Has been on CLD, will try advancing to FLD after biopsy. -Pain control -Antiemetics #KADI Noted on initial labs with Cr 1.6, BUN 26. This most likely represents a pre- renal kadi based on the patient's inability to maintain fluid intake and her diarrhea. -avoid nephrotoxic agents - continue mIVF - renally dosed medications -daily CMP #HTN stable on home meds -Lisinopril and amlodipine continued #Hypothyroidism stable on home meds. -continue levothyroxine Patient's plan and care discussed with my attending, Dr. Felix. Erik Martinez, DO PGY-1 ([facility] Resident)
== END 2024-12-10 08:58 | disposition home or self-care (01) | DRG 392 ==
LOC: SERX 15:50 → SERHOLD 17:15 → S3SX 18:00
PROVIDERS: Nurse Practitioner Family; Specialist; Admitting Provider Student in an Organized Health Care Education/Training Program; Emergency Provider Emergency Medicine; PCP Family Medicine; Visit Provider Student in an Organized Health Care Education/Training Program
PROC: 0DJD8ZZ Inspection of Lower Intestinal Tract, Via Natural or Artificial Opening Endoscopic (ICD-10-PCS; CPT 45378; principal; 2024-12-09 16:15)
DX: K52.9 Noninfective gastroenteritis and colitis, unspecified (principal); N17.9 Acute kidney failure, unspecified; M80.08XA Age-related osteoporosis with current pathological fracture, vertebra(e), initial encounter for fracture; N39.0 Urinary tract infection, site not specified; C78.00 Secondary malignant neoplasm of unspecified lung; I10 Essential (primary) hypertension; E03.9 Hypothyroidism, unspecified; M10.9 Gout, unspecified; R16.0 Hepatomegaly, not elsewhere classified; R91.8 Other nonspecific abnormal finding of lung field; Z96.642 Presence of left artificial hip joint; Z79.890 Hormone replacement therapy; B96.4 Proteus (mirabilis) (morganii) as the cause of diseases classified elsewhere; Z90.710 Acquired absence of both cervix and uterus; Z79.899 Other long term (current) drug therapy; K74.60 Unspecified cirrhosis of liver; J45.909 Unspecified asthma, uncomplicated
CPT/HCPCS: 36415; 71250; 74176; 74183; 77012; 80053; 81001; 82105; 83690; 83735; 83993; 84100; 84443; 85025; 85610; 85652; 85730; 86021; 86036; 86140; 86850; 86900; 86901; 87015; 87040; 87045; 87046; 87077; 87086; 87186; 87205; 87329; 87449; 87493; 87811; 87899; 94660; 96365; 96375; 99285; A4649; A9577; J1200; J2175; J2250; J2270; J2405; J2543; J3010; J3490; J7120; J7999; A9270

== ENCOUNTER 2024-12-25 11:43 | Observation (INO) | payer MEDICARE, SELFPAY ==
[2024-12-25] VITALS (9 sets, daily range): BP systolic 95–147; BP diastolic 51–84; PULSE 75–95; RESP 13–94; TEMP 36.3–36.9; O2SAT 93–98; BMI 41.5
--- NOTE | 2024-12-25 11:52 | EKG_ITS ---
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
--- NOTE | 2024-12-25 11:52 | EDNOTE_ITS ---
ED General RME/HPI General Chief complaint: Abdominal Pain Stated complaint: ABD PAIN Time Seen by Provider: 12/25/24 11:51 Arrival date/time: 12/25/24 11:43 CC: Bloody diarrhea HPI patient had 1 round of bloody diarrhea this morning including nausea. EMS report bringing the patient from [facility], and route th at she received 8 mg of Zofran for severe nausea but no active vomiting. Patiently recently discharged from this facility for Giardia and had already completed her antibiotics. Patient states she has been feeling well since she discharged from the hospital. Patient states she is slowly switching over to bottled water but continues to drink tap water. Currently patient denies chest pain shortness of breath. Related Data Home Medications ?Medication ?Instructions ?Recorded ?Confirmed acetaminophen 300 mg-codeine 60 mg 1 tab PO Q6H PRN pa in (scale score 12/04/24 12/04/24 tablet 7-10) allopurinol 100 mg tablet 100 mg PO DAILY 12/04/2411/20 amitriptyline 25 mg tablet 25 mg PO DAILY 12/04/2411/20 amlodipine 5 mg tablet 5 mg PO DAILY 12/04/2412/04 levothyroxine 137 mcg tablet 137 mcg PO DAILY 12/04/24 12/04/24 lisinopril 20 mg tablet 20 mg PO DAILY 12/04/2411/20 triamterene 75 1 tab PO DAILY 12/04/2411/20 mg-hydrochlorothiazide 50 mg tablet Allergies Allergy/AdvReac Type Severity Reaction Status Date / Time No Known Allergies Allergy Verified 12/07/24 14:34 Review of Systems Review of Systems Narrative Review of Systems: GEN: No fever, + chills, no weight loss EYES: No discharge, no visual changes, no pain HEENT: No ear pain, no congestion, no sore throat PULM: No shortness of breath, no cough, no congestion CV: No chest pain, no dyspnea on exertion, no palpitations GI: + nausea, no vomiting, + diarrhea, no pain, no constipation : No frequency, no urgency, no dysuria MUSC/SKEL: No joint pain, no back pain SKIN: No rash PSYCH: No hallucinations, no depression HEME/LYMPH: No easy bleeding or bruising tendencies NEURO: No weakness, no headache ED Exam Narrative Physical exam: [General: Morbidly obese in mild discomfort but not in any acute distress Head normocephalic HEENT: Eyes pupils are PERRLA EOMs are intact mouth pink dry membranes uvula is midline swallow symmetrical phonation is normal. Nose no rhinorrhea all of the subsystems of HEENT are within acceptable limits Neck is supple nontender no JVD no edema Chest equal chest rise nontender to palpation Respiratory: Clear to auscultation no wheezes crackles or rubs CV: Rate rhythm is regular no murmurs rubs or clicks Abdomen is grossly distended secondary to body habitus soft nontender no masses hyperactive bowel sounds all 4 quadrants Back: No CVA tenderness no spinous process tenderness from cervical spine thoracic and lumbar spine Skin: Intact no petechiae rash induration ulceration or crepitus Extremities: Moving all extremity against resistance cap refill less than 2 seconds neurosensory intact Neuro: Awake alert oriented x3 Glascow coma 15 no focal deficits] Course Course Course Narrative: Review the laboratory results show the patient has an KADI with a significant worsening in her renal function since last visit. Patient's laboratory results clinical findings and clinical presentation presented to Dr. Parker resident for Dr. Felix attending who agrees to accept the patient for admission Quality Measures none Orders Category Date Time Status EKG (ED ONLY) *Do not use* NOW Care 12/25/24 11:52 Completed EKG (ED ONLY) *Do not use* NOW Care 12/25/24 14:17 Active EKG (ED Only) Stat Exams 12/25/24 11:52 Draft EKG (ED Only) Stat Exams 12/25/24 14:17 Ordered B-Type Natriuretic Peptide Stat Lab 12/25/24 12:00 Completed CBC Stat Lab 12/25/24 12:00 Completed Comprehensive Metabolic Panel Stat Lab 12/25/24 12:00 Completed Drug Screen,Urine Stat Lab 12/25/24 13:00 Completed Lipase Stat Lab 12/25/24 12:00 Completed Magnesium Stat Lab 12/25/24 12:00 Completed Partial Thromboplastin Time Stat Lab 12/25/24 12:00 Completed Prothrombin Time with INR Stat Lab 12/25/24 12:00 Completed Urinalysis, C/S if Indicated Stat Lab 12/25/24 13:00 Completed Calcium Gluconate 10% Inj Med 12/25/24 14:13 Discontinued 1 gm IV X1 ONE Dextrose 50% Syr [D50w Syringe Abboject] Med 12/25/24 14:13 Discontinued 50 ml IVP X1 ONE Insulin Regular Med 12/25/24 14:13 Discontinued 5 unit IV X1 ONE Prochlorperazine Inj [Compazine Inj] Med 12/25/24 14:02 Discontinued 10 mg IV X1 ONE Ringers Lactated 1000 ml [Lactated Ringers] 1,000 ml Med 12/25/24 14:01 Active IV 999 mls/hr Vital Signs Vital signs: Vital Signs Temperature 97.5 F 12/25/24 11:47 Pulse Rate 90 12/25/24 11:47 Respiratory Rate 19 12/25/24 11:47 Blood Pressure 124/75 12/25/24 11:47 Pulse Oximetry (%) 94 L 12/25/24 11:47 Oxygen Delivery Method Room Air 12/25/24 11:47 Discharge Plan Plan Patient Disposition: Other Care w/in Hosp ([facility]) Patient condition on transfer: Stable Prescriptions/Referrals Prescriptions/Med Rec: No Action lisinopril 20 mg tablet 20 mg PO DAILY amitriptyline 25 mg tablet 25 mg PO DAILY levothyroxine 137 mcg tablet 137 mcg PO DAILY acetaminophen-codeine 300-60 mg tablet 1 tab PO Q6H PRN (Reason: pain (scale score 7-10)) Patient Comments: TAKE 1 TABLET BY MOUTH EVERY 6 HOURS NEEDED amlodipine 5 mg tablet 5 mg PO DAILY triamterene-hydrochlorothiazid 75-50 mg tablet 1 tab PO DAILY Patient Comments: TAKE 1 TABLET BY MOUTH DAILY allopurinol 100 mg tablet 100 mg PO DAILY Referrals: Tona Metz MD [Primary Care Provider, Family Practice] - In 1 week Problem List Clinical Impression: Hyperkalemia, KADI (acute kidney injury) Patient/Caregiver Discharge Instructions Print Language: Maltese Stand Alone Forms: Berkley Award Info., Patient Portal Info Letter PA/MANAGER MEDICAL DEVICE Supervising Physician PA/MANAGER MEDICAL DEVICE Supervising Physician: Oj Hill ENP [facility] Clinical Information Provided by: patient and EMS Medical Records reviewed [facility] and EMS Meds/Rx considered, not ordered None Labs/Rad/Tests considered, not ordered None Chronic Illness/Social Conditions Explain: Hypertension recent admission for Giardia EKG Interpretation EKG #1: EKG Interpretation: EKG performed at 1209 shows a ventricular rate of 85 NC interval 183 QRS of 92 QTc of 402 the sinus rhythm Labs Labs: interpreted by pa Lab(s) Interpretation(s): CBC shows a mild leukocytosis and H&H of 16 and 48 no thrombocytopenia no shift no bandemia Coags within acceptable limits CMP shows sodium 135 potassium of 5.7 CO2 of 19.2 BUN of 2038 creatinine of 1.8 glucose of 113 mag at 2.7 T. bili unremarkable mildly elevated AST at 35 alk phos at 204 BMP is unremarkable. Lipase is unremarkable Urine is clear UDS is positive for marijuana and opiates. Medication Administration(s) Medication Administration History Lactated Ringer's (Lactated Ringers) 1,000 mls @ 999 mls/hr IV .Q1H1M ONE Stop: 12/25/24 15:01 Last Admin: 12/25/24 14:12 Dose: 999 mls/hr Documented By: JUANITO Discontinued Medications Calcium Gluconate (Calcium Gluconate 10% Inj 1 Gm/10 Ml Vial) 1 gm IV X1 ONE Stop: 12/25/24 14:14 Dextrose (Dextrose 50%-Water Inj 50 Ml Syringe) 50 ml IVP X1 ONE Stop: 12/25/24 14:14 Insulin Human Regular (Insulin Hum Regular 1 Unit/0.01 Ml (Per Unit)) 5 unit IV X1 ONE Stop: 12/25/24 14:14 Prochlorperazine Edisylate (Prochlorperazine Inj 5 Mg/Ml Vial 2 Ml) 10 mg IV X1 ONE; Protocol Stop: 12/25/24 14:03 Last Admin: 12/25/24 14:11 Dose: 10 mg Documented By: JUANITO
[2024-12-25 12:34] LABS: Basophils # (Auto) 0.1 Thou/mm3 (0.0-0.2); Basophils % (Auto) 1 % (0-2.5); Eosinophils # (Auto) 0.1 Thou/mm3 (0.0-0.5); Eosinophils % (Auto) 0 % (0-10); Hematocrit 48.2 % (36.0-46.0); Hemoglobin 16.0 g/dL (12.0-16.0); Immature Granulocytes Auto 0.08 Thou/mm3 (0.00-0.00); Lymphocytes # (Auto) 2.2 Thou/mm3 (1.0-4.8); Lymphocytes % (Auto) 18 % (10-50); Mean Corpuscular HGB Conc 33.2 g/dl (31.0-37.0); Mean Corpuscular Hemoglobin 30.2 pg (25.0-35.0); Mean Corpuscular Volume 91 fL (80-100); Monocytes # (Auto) 0.8 Thou/mm3 (0.0-0.8); Monocytes % (Auto) 6 % (0-12); Neutrophils # (Auto) 9.3 Thou/mm3 (1.8-7.7); Neutrophils % (Auto) 74 % (37-80); Nucleated Red Blood Cell # 0.00 Thou/mm3 (0.00-0.00); Nucleated Red Blood Cell % 0 /100 WBC (0); Platelet Count 307 Thou/mm3 (140-440); RDW Standard Deviation 48.6 fL (36.4-46.3); Red Blood Count 5.30 Miln/mm3 (4.00-5.20); White Blood Count 12.5 Thou/mm3 (3.6-11.0)
[2024-12-25 12:54] LABS: INR 1.1 (0.9-1.3); Partial Thromboplastin Time 23.0 Seconds (22.0-36.0); Prothrombin Time 11.6 Seconds (9.0-12.2)
[2024-12-25 13:01] LABS: Alanine Aminotransferase 29 U/L (10-49); Albumin, Serum 4.0 gm/dL (3.4-4.8); Albumin/Globulin Ratio 1.5 (1.2-2.2); Alkaline Phosphatase 204 U/L (46-116); Anion Gap 10 (7-16); Aspartate Amino Transferase 35 U/L (0-34); BUN/Creatinine Ratio 21 Ratio (12-20); Bilirubin,Total 0.4 mg/dL (0.3-1.2); Blood Urea Nitrogen 38 mg/dL (9-23); Calcium 9.9 mg/dL (8.3-10.6); Calcium (Corrected) 9.9 mg/dL (8.5-10.1); Carbon Dioxide 19.2 mMol/L (20.0-31.0); Chloride 106 mMol/L (98-107); Creatinine (Component) 1.8 mg/dL (0.6-1.3); Estimated Creatinine Clearance 38.1 mL/min (>60); Globulin 2.7 gm/dL (2.3-3.5); Glucose 113 mg/dL (74-106); Lipase 22 U/L (12-53); Magnesium 2.7 mg/dL (1.6-2.6); Osmolality,Calculated 280 (275-295); Potassium 5.7 mMol/L (3.4-5.1); Sodium 135 mMol/L (136-145); Total Protein 6.7 gm/dL (5.7-8.2); eGFR 30 See Note
[2024-12-25 13:05] LABS: Collection Type, Urine Clean Catch
[2024-12-25 13:18] LABS: Bilirubin,Urine Negative (Negative); Blood,Urine Negative (Negative); Clarity,Urine Clear (Clear/Hazy); Color,Urine Yellow (Lt Yel-Yel); Culture Indicated,Urine Not Indicated; Glucose, Urine Negative (Negative); Hyaline Casts,Urine < 1 /hpf (0-1); Ketones,Urine Negative (Negative); Leukocyte Esterase,Urine Positive (Negative); Nitrite,Urine Negative (Negative); PH,Urine 6.0 (5.0-7.0); Protein,Urine Trace (Neg - Trace); RBC,Urine 1 /hpf (0-3); Specific Gravity,Urine 1.026 (1.001-1.035); Squamous Epithelial Cell,Urine 2 /hpf (0-5); Urobilinogen,Urine 2.0 mg/dL (0.0-1.0); WBC,Urine 7 /hpf (0-5)
[2024-12-25 13:23] LABS: B-Type Natriuretic Peptide 24 pg/mL (0-100)
[2024-12-25 13:28] LABS: Amphetamine/Methamp Scrn,U Negative (Negative); Barbiturate Screen,Urine Negative (Negative); Benzodiazepines Screen,Urine Negative (Negative); Benzoylecgonine Screen, Ur Negative (Negative); Fentanyl Screen,Urine Negative (Negative); Opiate Screen,Urine Positive (Negative); THC Screen,Urine Positive (Negative)
[2024-12-25] MEDS: PROCHLORPERAZINE INJ 5 MG/ML VIAL 2 ML 10 MG IV (14:11)
[2024-12-25] MEDS: RINGERS LACTATED 1000 ML 1,000 ML 999 ML IV (14:12)
--- NOTE | 2024-12-25 14:17 | EKG_ITS ---
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
[2024-12-25] MEDS: DEXTROSE 50%-WATER INJ 50 ML SYRINGE IVP (14:36)
[2024-12-25] MEDS: CALCIUM GLUCONATE 10% INJ 1 GM/10 ML VIAL IV (14:36)
[2024-12-25] MEDS: INSULIN HUM REGULAR 1 UNIT/0.01 ML (PER UNIT) 5 UNIT IV (14:37)
--- NOTE | 2024-12-25 15:28 | ESHP_ITS ---
<Statement entered by Marty Parker MD - 12/26/24 17:11> I have personally seen and examined the patient, agree with residents assessment and plan Patient plan of care was discussed with the attending physician, Dr. Elvira Parker, PGY2 Documentation for date of: 12/25/24 HPI History of Present Illness History of present illness: Patient is a 79-year-old female with past medical history of hypertension, GA, liver mass, hypothyroidism who presents on 12/25 for persistent diarrhea since discharge on 12/10. Patient was recently admitted for same complaints from 12/04 to 12/10, at that time was tested positive for Giardia. Recommended refraining from drinking [place] Denies drinking tap water anymore but still uses ice from fridge (uses tap water). Completed full course antibiotics prior to discharge, and was started on another complete course of antibiotics outpatient by PCP. Denies any improvement, she continues to have 4-5 episodes of diarrhea daily. Describes stool as watery and foul-smelling blackish and streaks of blood. Also endorses night sweats, subjective fevers, chills, nausea, vomiting, abdominal cramps, weakness. Denies recent sick contacts, consuming suspicious foods, or travel. ED Course: -Initial vitals were BP 124/75, HR 90, RR 19, afebrile, 94% on room air -Labs significant for WBC 12.5, hemoglobin 16.0. Sodium 135, potassium 5.7, bicarb 19.2, anion gap 10 BUN 38, creatinine 1.8. Magnesium 2.7. AST 35, ALT 29, alk phos 204. Lactic acid 1.3, Pro-Myron 2.12. EKG shows sinus rhythm with no ST or T wave abnormalities. Of note, QTc 426. -In the ED, patient was given prochlorperazine, LR bolus 1L, calcium gluconate, insulin and dextrose -Patient was admitted for intractable vomiting and diarrhea Review of Systems Review of systems otherwise negative except what is mentioned above. Past Medical History: As above Family History: Mother had breast cancer, passed at 60. Father had heart failure, passed at 86. Surgical History: umbilical hernia repair, left hip arthroplasty, hysterectomy Social History: Denies history of smoking, denies current alcohol use, denies recreational drug use. Lives in [place] ([facility] Current Medications: Acetaminophen?codeine 3 times a day, allopurinol 100 mg daily, amitriptyline 25 mg daily, amlodipine 5 mg daily, levothyroxine 137 mcg daily, lisinopril 20 mg daily, triamterene?hydrochlorothiazide 1 tab daily Allergies: No known drug allergies Exam Vital Signs Temp Pulse Resp BP Pulse Ox O2 Del Method 98.4 F 85 13 118/65 94 L Room Air 12/25/24 13:12/25/24 13:12/25/24 13:12/25/24 13:12/25/24 13:12/25/24 13:29 Narrative Exam Physical Exam General: Awake and in mild distress from subjective fever/chills. Conversational. Laying flat on bed. HEENT: Normocephalic, atraumatic, mucous membranes moist. Heart: Regular rate and rhythm, normal S1 and S2, no murmurs. Lungs: Clear to auscultation with no wheezing or crackles. Abdomen: Soft, nondistended, right lower quadrant tenderness, positive bowel sounds. No guarding or rebound tenderness. Negative Cade sign. Neurologic: Alert and oriented x3, no gross neurological deficit, and patient able to move all 4 extremities. Extremities: No edema. Skin: No rash or ecchymoses. Results: Labs 12/27/24 04:41 12/27/24 04:41 Labs: Short CBC 12/25/24 Range/Units 12:00 WBC 12.5 H (3.6-11.0) Thou/mm3 Hgb 16.0 (12.0-16.0) g/dL Hct 48.2 H (36.0-46.0) % Plt Count 307 D (140-440) Thou/mm3 BMP 12/25/24 12:00 Sodium 135 L Potassium 5.7 H Chloride 106 Carbon Dioxide 19.2 L BUN 38 H Creatinine 1.8 H Glucose 113 H Calcium 9.9 Liver Function 12/25/24 Range/Units 12:00 Total Bilirubin 0.4 (0.3-1.2) mg/dL AST 35 H (0-34) U/L ALT 29 (10-49) U/L Alkaline Phosphatase 204 H (46-116) U/L Albumin 4.0 (3.4-4.8) gm/dL Urine 12/25/24 Range/Units 13:00 Urine Color Yellow (Lt Yel-Yel) Urine Clarity Clear (Clear/Hazy) Urine pH 6.0 (5.0-7.0) Ur Specific [place] 1.026 (1.001-1.035) Urine Protein Trace (Neg - Trace) Urine Glucose (UA) Negative (Negative) Quality Measures Quality Measures none Advance care planning discussed with:: patient Medications Home Medications and Allergies Home Medications ?Medication ?Instructions ?Recorded ?Confirmed ?Type acetaminophen 300 mg-codeine 60 mg 1 tab PO Q6H PRN pa in (scale score 12/04/24 12/25/24 History tablet 7-10) allopurinol 100 mg tablet 100 mg PO DAILY 12/04/24 History amitriptyline 25 mg tablet 25 mg PO DAILY 12/04/24 History amlodipine 5 mg tablet 5 mg PO DAILY 12/04/2412/25 History levothyroxine 137 mcg tablet 137 mcg PO DAILY 12/04/24 12/25/24 History lisinopril 20 mg tablet 20 mg PO DAILY 12/04/2411/28 History triamterene 75 1 tab PO DAILY 12/04/2411/28 History mg-hydrochlorothiazide 50 mg tablet Allergies Allergy/AdvReac Type Severity Reaction Status Date / Time No Known Allergies Allergy Verified 12/07/24 14:34 Visit Medications Acetaminophen (Acetaminophen 325 Mg Tablet) 650 mg PO Q6H PRN PRN Reason: Fever >101.5 and pain 1-3 Stop: 01/24/25 15:16 Hydrocodone Bitart/Acetaminophen (Hydrocodone/Apap 5/325 Tablet) 1 tab PO Q6H PRN PRN Reason: PAIN SCALE 7-10 (Severe Stop: 12/30/24 15:16 Ketorolac Tromethamine (Ketorolac Inj 30 Mg/Ml Vial) 15 mg IVP Q6HR PRN PRN Reason: Pain 4-6 Stop: 12/29/24 15:22 Ondansetron HCl (Ondansetron Inj 2 Mg/Ml Inj 2 Ml) 4 mg IVP Q6H PRN; Protocol PRN Reason: NAUSEA OR VOMITING Stop: 01/24/25 15:16 Pantoprazole Sodium (Pantoprazole 40 Mg Tablet) 40 mg PO QDAY RAMON Stop: 01/25/25 08:59 Discontinued Medications Calcium Gluconate (Calcium Gluconate 10% Inj 1 Gm/10 Ml Vial) 1 gm IV X1 ONE Stop: 12/25/24 14:14 Last Admin: 12/25/24 14:36 Dose: 1 gm Dextrose (Dextrose 50%-Water Inj 50 Ml Syringe) 50 ml IVP X1 ONE Stop: 12/25/24 14:14 Last Admin: 12/25/24 14:36 Dose: 50 ml Heparin Sodium (Porcine) (Heparin Sod Inj 5000 Unit/Ml Vial) 5,000 unit SC Q12HR RAMON Stop: 01/08/25 20:59 Lactated Ringer's (Lactated Ringers) 1,000 mls @ 999 mls/hr IV .Q1H1M ONE Stop: 12/25/24 15:01 Last Admin: 12/25/24 14:12 Dose: 999 mls/hr Insulin Human Regular (Insulin Hum Regular 1 Unit/0.01 Ml (Per Unit)) 5 unit IV X1 ONE Stop: 12/25/24 14:14 Last Admin: 12/25/24 14:37 Dose: 5 unit Ketorolac Tromethamine (Ketorolac 10 Mg Tablet) 10 mg PO Q6HR PRN PRN Reason: Pain 4-6 Stop: 12/30/24 15:21 Oxycodone/Acetaminophen (Oxycodone/Apap 5/325 Tablet) 1 tab PO Q6H PRN PRN Reason: PAIN SCALE 4-6 (Moderate Stop: 12/30/24 15:16 Oxycodone/Acetaminophen (Oxycodone/Apap 5/325 Tablet) 1 tab PO Q6H PRN PRN Reason: PAIN SCALE 7-10 (Severe Stop: 12/30/24 15:16 Prochlorperazine Edisylate (Prochlorperazine Inj 5 Mg/Ml Vial 2 Ml) 10 mg IV X1 ONE; Protocol Stop: 12/25/24 14:03 Last Admin: 12/25/24 14:11 Dose: 10 mg Assessment & Plan Plan Patient is a 79-year-old female with past medical history of hypertension, GA, liver mass, hypothyroidism who presents on 12/25 for persistent diarrhea since discharge on 12/10, admitted again for management of intractable vomiting and diarrhea. #Hx of Giardia #Intractable nausea and vomiting #Persistent diarrhea 2/2 Giardia Previously admitted from 12/04 - 12/09 for similar complaints. Tested positive for Giardia with elevated stool calprotectin. Negative workup for IBD. Was recommended to avoid drinking tap water. Reports she is drinking bottled water as there has been a public health announcement in her area regarding water consumption; however still uses ice made from tap water. Colonoscopy only showed hemorrhoids and multiple medium mouth diverticula in the sigmoid and descending colon. On admission, WBC elevated 12.5 however suspect hemoconcentration as all cell lines have increased significantly including hemoglobin and platelets. Plan: ? Oral metronidazole 250 mg 3 times daily ? Zofran 4 g Q6hr prn ? Pending stool studies ?CTM CBC ? Consulted infectious disease Dr Al, appreciate recommendations #KADI, prerenal On admission, creatinine 1.8, baseline 1.2. Likely secondary to loss from diarrhea and vomiting. S/p IV LR 1 L bolus. Plan: ? IV LR maintenance at 125 mL/h ? Follow-up renal panel 8 PM ?Avoid nephrotoxic agents ? CTM renal panel ? Hold antihypertensive lisinopril and triamterene hydrochlorothiazide #Hypertension Takes amlodipine 5 mg daily, lisinopril 20 mg, triamterene hydrochlorothiazide daily at home. ? Hold lisinopril and triamterene?HCTZ in setting of KADI, may restart if creatinine improves ? Amlodipine 5 mg daily ?CTM blood pressure #Liver mass #Pulmonary nodules Chronic problem. Previous workup showed a liver mass nonmalignant. Still pending workup for pulmonary nodules. ?No inpatient treatment at this time ?CTM #Hypothyroidism #Anxiety #Gout ?Resume home levothyroxine and amitriptyline ?Follow-up TSH ?Hold allopurinol Health Maintenance Disposition: MedSurg DVT prophylaxis: SCDs GI prophylaxis: None Diet: Regular CODE STATUS: Full Patient plan of care was discussed with the resident, Dr. Parker, and the attending physician, Dr. Felix. Oryl Paez, PGY-1 Attending Provider Attestation/Addendum I have discussed and was present for the essential components of the history, physical examination, diagnosis, and treatment plan with the resident. I agree with the patient's care as documented by the resident and amended herein by me. Kieran Felix DO. Although this document has been carefully reviewed, there may still be some phonetic and other typographical errors. These errors are purely grammatical due to imperfections in the software program and should not be construed in any way to compromise the substance of the patient's medical care during this visit.
[2024-12-25 16:40] LABS: Lactate (Lactic Acid) 1.3 mMol/L (0.4-2.0)
[2024-12-25 17:08] LABS: Procalcitonin 2.12 ng/ml (0.0-0.49)
[2024-12-25] MEDS: HYDROcodone/APAP 5/325 TABLET 1 TAB PO (17:24)
[2024-12-25] MEDS: RINGERS LACTATED 1000 ML 1,000 ML 125 ML IV (17:25)
[2024-12-25 18:50] LABS: Thyroid Stimulating Hormone 7.91 uIU/mL (0.55-4.78)
[2024-12-25 20:30] LABS: Albumin, Serum 3.4 gm/dL (3.4-4.8); Anion Gap 10 (7-16); BUN/Creatinine Ratio 18 Ratio (12-20); Blood Urea Nitrogen 33 mg/dL (9-23); Calcium 9.5 mg/dL (8.3-10.6); Calcium (Corrected) 10.0 mg/dL (8.5-10.1); Carbon Dioxide 22.1 mMol/L (20.0-31.0); Chloride 103 mMol/L (98-107); Creatinine (Component) 1.8 mg/dL (0.6-1.3); Estimated Creatinine Clearance 38.1 mL/min (>60); Glucose 116 mg/dL (74-106); Osmolality,Calculated 278 (275-295); Phosphorous 3.6 mg/dL (2.4-5.1); Potassium 5.0 mMol/L (3.4-5.1); Sodium 135 mMol/L (136-145); eGFR 30 See Note
[2024-12-25] MEDS: AMITRIPTYLINE HCL 25 MG TABLET PO (21:01)
[2024-12-25] MEDS: LACTOBACILLUS RHAMNOSUS 1 CAP PO (21:01)
[2024-12-26] VITALS (7 sets, daily range): BP systolic 107–135; BP diastolic 60–77; PULSE 65–75; RESP 14–98; TEMP 36.1–36.9; O2SAT 92–97
[2024-12-26] MEDS: HYDROcodone/APAP 5/325 TABLET 1 TAB PO ×3 (05:29→20:36)
[2024-12-26 05:30] LABS: Basophils # (Auto) 0.1 Thou/mm3 (0.0-0.2); Basophils % (Auto) 1 % (0-2.5); Eosinophils # (Auto) 0.2 Thou/mm3 (0.0-0.5); Eosinophils % (Auto) 2 % (0-10); Hematocrit 42.7 % (36.0-46.0); Hemoglobin 13.6 g/dL (12.0-16.0); Immature Granulocytes Auto 0.07 Thou/mm3 (0.00-0.00); Lymphocytes # (Auto) 2.0 Thou/mm3 (1.0-4.8); Lymphocytes % (Auto) 22 % (10-50); Mean Corpuscular HGB Conc 31.9 g/dl (31.0-37.0); Mean Corpuscular Hemoglobin 30.0 pg (25.0-35.0); Mean Corpuscular Volume 94 fL (80-100); Monocytes # (Auto) 0.7 Thou/mm3 (0.0-0.8); Monocytes % (Auto) 8 % (0-12); Neutrophils # (Auto) 6.0 Thou/mm3 (1.8-7.7); Neutrophils % (Auto) 66 % (37-80); Nucleated Red Blood Cell # 0.00 Thou/mm3 (0.00-0.00); Nucleated Red Blood Cell % 0 /100 WBC (0); Platelet Count 248 Thou/mm3 (140-440); RDW Standard Deviation 51.0 fL (36.4-46.3); Red Blood Count 4.54 Miln/mm3 (4.00-5.20); White Blood Count 9.1 Thou/mm3 (3.6-11.0)
[2024-12-26 05:41] LABS: Glucose Estimated Average 100 mg/dL (80-131); Hemoglobin A1C 5.1 % Hgb (4.8-6.0)
[2024-12-26 06:20] LABS: Alanine Aminotransferase 27 U/L (10-49); Albumin, Serum 3.3 gm/dL (3.4-4.8); Alkaline Phosphatase 169 U/L (46-116); Anion Gap 8 (7-16); Aspartate Amino Transferase 36 U/L (0-34); BUN/Creatinine Ratio 18 Ratio (12-20); Bilirubin,Direct 0.2 mg/dL (0.0-0.3); Bilirubin,Total 0.4 mg/dL (0.3-1.2); Blood Urea Nitrogen 27 mg/dL (9-23); Calcium 9.5 mg/dL (8.3-10.6); Carbon Dioxide 22.8 mMol/L (20.0-31.0); Chloride 105 mMol/L (98-107); Creatinine (Component) 1.5 mg/dL (0.6-1.3); Estimated Creatinine Clearance 45.7 mL/min (>60); Glucose 87 mg/dL (74-106); Magnesium 2.3 mg/dL (1.6-2.6); Osmolality,Calculated 276 (275-295); Potassium 5.0 mMol/L (3.4-5.1); Sodium 136 mMol/L (136-145); Total Protein 5.5 gm/dL (5.7-8.2); eGFR 38 See Note
--- NOTE | 2024-12-26 07:53 | PD.IDPROG ---
Subjective Subjective Interval history: asked to see. will see tomorrow. Exam Vital Signs Temp Pulse Resp BP Pulse Ox O2 Del Method 97.3 F 73 18 110/60 92 L Room Air 12/26/24 04:00 12/26/24 07:35 12/26/24 07:35 12/26/24 04:00 12/26/24 04:00 12/26/24 04:00 Narrative Exam not seen prior liver bx 12/04 noted Objective - Internal Medicine Labs 12/26/24 04:15 12/26/24 04:15 Labs: Laboratory Results - last 24 hr 12/25/24 12/25/24 12/25/24 12:00 13:00 16:34 WBC 12.5 H RBC 5.30 H Hgb 16.0 Hct 48.2 H MCV 91 MCH 30.2 MCHC 33.2 RDW Std Deviation 48.6 H Plt Count 307 D Neut % (Auto) 74 Lymph % (Auto) 18 [place] % (Auto) 6 Eos % (Auto) 0 Baso % (Auto) 1 Neut # (Auto) 9.3 H Lymph # (Auto) 2.2 [place] # (Auto) 0.8 Eos # (Auto) 0.1 Baso # (Auto) 0.1 Immature Gran # (Auto) 0.08 H Absolute Nucleated RBC 0.00 Immature Gran % 1 H Nucleated RBC % 0 PT 11.6 INR 1.1 APTT 23.0 Sodium 135 L Potassium 5.7 H Chloride 106 Carbon Dioxide 19.2 L Anion Gap 10 BUN 38 H Creatinine 1.8 H Estim Creat Clear Calc 38.1 L eGFR 30 L BUN/Creatinine Ratio 21 H Glucose [address] Glu mg/dL Hemoglobin A1c Calculated Osmolality 280 Lactic Acid 1.3 Calcium 9.9 Corrected Calcium 9.9 Phosphorus Magnesium 2.7 H Total Bilirubin 0.4 Direct Bilirubin AST 35 H ALT 29 Alkaline Phosphatase 204 H B-Natriuretic Peptide 24 Total Protein 6.7 Albumin 4.0 Globulin 2.7 Albumin/Globulin Ratio 1.5 Lipase 22 Procalcitonin 2.12 H TSH 7.91 H D Ur Collection Type Clean Catch Urine Color Yellow Urine Clarity Clear Urine pH 6.0 Ur Specific [place] 1.026 Urine Protein Trace Urine Glucose (UA) Negative Urine Ketones Negative Urine Blood Negative Urine Nitrite Negative Urine Bilirubin Negative Urine Urobilinogen (Auto) 2.0 Ur Leukocyte Esterase Positive Urine RBC 1 Urine WBC 7 H Ur Squamous Epith Cells 2 Urine Bacteria None Hyaline Casts < 1 Ur Culture Indicated? Not Indicated Urine Opiates Screen Positive A Urine Fentanyl Screen Negative Ur Barbiturates Screen Negative U Amphetamin/Meth Scrn Negative U Benzodiazepines Scrn Negative U Cocaine Metab Screen Negative U Marijuana (THC) Screen Positive A 12/25/24 12/26/24 19:41 04:15 WBC 9.1 RBC 4.54 Hgb 13.6 D Hct 42.7 MCV 94 MCH 30.0 MCHC 31.9 RDW Std Deviation 51.0 H Plt Count 248 D Neut % (Auto) 66 Lymph % (Auto) 22 [place] % (Auto) 8 Eos % (Auto) 2 Baso % (Auto) 1 Neut # (Auto) 6.0 Lymph # (Auto) 2.0 [place] # (Auto) 0.7 Eos # (Auto) 0.2 Baso # (Auto) 0.1 Immature Gran # (Auto) 0.07 H Absolute Nucleated RBC 0.00 Immature Gran % 1 H Nucleated RBC % 0 PT INR APTT Sodium 135 L 136 Potassium 5.0 D 5.0 Chloride 103 105 Carbon Dioxide 22.1 22.8 Anion Gap 10 8 BUN 33 H 27 H Creatinine 1.8 H 1.5 H Estim Creat Clear Calc 38.1 L 45.7 L eGFR 30 L 38 L BUN/Creatinine Ratio 18 18 Glucose [address] Glu mg/dL 100 Hemoglobin A1c 5.1 Calculated Osmolality 278 276 Lactic Acid Calcium 9.5 9.5 Corrected Calcium 10.0 Phosphorus 3.6 Magnesium 2.3 Total Bilirubin 0.4 Direct Bilirubin 0.2 AST 36 H ALT 27 Alkaline Phosphatase 169 H D B-Natriuretic Peptide Total Protein 5.5 L Albumin 3.4 D 3.3 L Globulin Albumin/Globulin Ratio Lipase Procalcitonin TSH Ur Collection Type Urine Color Urine Clarity Urine pH Ur Specific [place] Urine Protein Urine Glucose (UA) Urine Ketones Urine Blood Urine Nitrite Urine Bilirubin Urine Urobilinogen (Auto) Ur Leukocyte Esterase Urine RBC Urine WBC Ur Squamous Epith Cells Urine Bacteria Hyaline Casts Ur Culture Indicated? Urine Opiates Screen Urine Fentanyl Screen Ur Barbiturates Screen U Amphetamin/Meth Scrn U Benzodiazepines Scrn U Cocaine Metab Screen U Marijuana (THC) Screen Assessment & Plan A&P Narrative re-admit after rx for giardia pos procal in face of alban (chemical is produced by body but renally cleared so should not be tested in alban or ckd) she appears to have both alban and ckd may also have liver disease so will screen for hep c and see wed Time Spent With Patient Time: Total time spent is greater than 50% in coordination of care (as documented) at patient's floor/unit and/or counseling patient:
[2024-12-26] MEDS: LACTOBACILLUS RHAMNOSUS 1 CAP PO ×2 (09:28→20:36)
[2024-12-26] MEDS: RINGERS LACTATED 1000 ML 1,000 ML 100 ML IV (10:58)
--- NOTE | 2024-12-26 11:21 | ESPR_ITS ---
<Statement entered by Marty Parker MD - 12/26/24 18:45> I have personally seen and examined the patient, agree with residents assessment and plan Patient plan of care was discussed with the attending physician, Dr. Elvira Parker, PGY2 Documentation for date of: 12/26/24 Subjective Subjective Interval history: Had 5 loose bowel movements overnight but otherwise no acute events. No bowel movements this morning. Patient denies nausea, vomiting, abdominal pain. Will continue maintenance fluids and advance diet as tolerated. Will continue metronidazole 250 mg TID, consider transitioning to 500 mg BID for better outpatient adherence. Still pending Giardia and stool studies to be collected. Consulted ID who did not make any changes to antibiotic regimen at this time. Anticipate discharge back home after stool studies collected. Counseled on avoiding consumption of tap water. Exam Vital Signs Temp Pulse Resp BP Pulse Ox O2 Del Method 97.0 F 74 14 129/77 97 Room Air 12/26/24 08:00 12/26/24 08:00 12/26/24 08:00 12/26/24 08:00 12/26/24 08:00 12/26/24 08:00 Narrative Exam Physical Exam General: Awake and in no acute distress. Conversational and non-toxic appearing. Obese. Laying in bed comfortably. HEENT: Normocephalic, atraumatic, mucous membranes moist. Heart: Regular rate and rhythm, normal S1 and S2, no murmurs. Lungs: Clear to auscultation with no wheezing or crackles. Abdomen: Soft, nondistended, nontender, positive bowel sounds. No guarding or rebound tenderness. Neurologic: Alert and oriented x3, no gross neurological deficit, and patient able to move all 4 extremities. Extremities: No edema. Skin: No rash or ecchymoses. Objective Labs 12/26/24 04:15 12/26/24 04:15 Labs: Laboratory Results - last 24 hr 12/25/24 12/25/24 12/25/24 12:00 13:00 16:34 WBC 12.5 H RBC 5.30 H Hgb 16.0 Hct 48.2 H MCV 91 MCH 30.2 MCHC 33.2 RDW Std Deviation 48.6 H Plt Count 307 D Neut % (Auto) 74 Lymph % (Auto) 18 [place] % (Auto) 6 Eos % (Auto) 0 Baso % (Auto) 1 Neut # (Auto) 9.3 H Lymph # (Auto) 2.2 [place] # (Auto) 0.8 Eos # (Auto) 0.1 Baso # (Auto) 0.1 Immature Gran # (Auto) 0.08 H Absolute Nucleated RBC 0.00 Immature Gran % 1 H Nucleated RBC % 0 PT 11.6 INR 1.1 APTT 23.0 Sodium 135 L Potassium 5.7 H Chloride 106 Carbon Dioxide 19.2 L Anion Gap 10 BUN 38 H Creatinine 1.8 H Estim Creat Clear Calc 38.1 L eGFR 30 L BUN/Creatinine Ratio 21 H Glucose [address] Glu mg/dL Hemoglobin A1c Calculated Osmolality 280 Lactic Acid 1.3 Calcium 9.9 Corrected Calcium 9.9 Phosphorus Magnesium 2.7 H Total Bilirubin 0.4 Direct Bilirubin AST 35 H ALT 29 Alkaline Phosphatase 204 H B-Natriuretic Peptide 24 Total Protein 6.7 Albumin 4.0 Globulin 2.7 Albumin/Globulin Ratio 1.5 Lipase 22 Procalcitonin 2.12 H TSH 7.91 H D Ur Collection Type Clean Catch Urine Color Yellow Urine Clarity Clear Urine pH 6.0 Ur Specific [place] 1.026 Urine Protein Trace Urine Glucose (UA) Negative Urine Ketones Negative Urine Blood Negative Urine Nitrite Negative Urine Bilirubin Negative Urine Urobilinogen (Auto) 2.0 Ur Leukocyte Esterase Positive Urine RBC 1 Urine WBC 7 H Ur Squamous Epith Cells 2 Urine Bacteria None Hyaline Casts < 1 Ur Culture Indicated? Not Indicated Urine Opiates Screen Positive A Urine Fentanyl Screen Negative Ur Barbiturates Screen Negative U Amphetamin/Meth Scrn Negative U Benzodiazepines Scrn Negative U Cocaine Metab Screen Negative U Marijuana (THC) Screen Positive A 12/25/24 12/26/24 19:41 04:15 WBC 9.1 RBC 4.54 Hgb 13.6 D Hct 42.7 MCV 94 MCH 30.0 MCHC 31.9 RDW Std Deviation 51.0 H Plt Count 248 D Neut % (Auto) 66 Lymph % (Auto) 22 [place] % (Auto) 8 Eos % (Auto) 2 Baso % (Auto) 1 Neut # (Auto) 6.0 Lymph # (Auto) 2.0 [place] # (Auto) 0.7 Eos # (Auto) 0.2 Baso # (Auto) 0.1 Immature Gran # (Auto) 0.07 H Absolute Nucleated RBC 0.00 Immature Gran % 1 H Nucleated RBC % 0 PT INR APTT Sodium 135 L 136 Potassium 5.0 D 5.0 Chloride 103 105 Carbon Dioxide 22.1 22.8 Anion Gap 10 8 BUN 33 H 27 H Creatinine 1.8 H 1.5 H Estim Creat Clear Calc 38.1 L 45.7 L eGFR 30 L 38 L BUN/Creatinine Ratio 18 18 Glucose [address] Glu mg/dL 100 Hemoglobin A1c 5.1 Calculated Osmolality 278 276 Lactic Acid Calcium 9.5 9.5 Corrected Calcium 10.0 Phosphorus 3.6 Magnesium 2.3 Total Bilirubin 0.4 Direct Bilirubin 0.2 AST 36 H ALT 27 Alkaline Phosphatase 169 H D B-Natriuretic Peptide Total Protein 5.5 L Albumin 3.4 D 3.3 L Globulin Albumin/Globulin Ratio Lipase Procalcitonin TSH Ur Collection Type Urine Color Urine Clarity Urine pH Ur Specific [place] Urine Protein Urine Glucose (UA) Urine Ketones Urine Blood Urine Nitrite Urine Bilirubin Urine Urobilinogen (Auto) Ur Leukocyte Esterase Urine RBC Urine WBC Ur Squamous Epith Cells Urine Bacteria Hyaline Casts Ur Culture Indicated? Urine Opiates Screen Urine Fentanyl Screen Ur Barbiturates Screen U Amphetamin/Meth Scrn U Benzodiazepines Scrn U Cocaine Metab Screen U Marijuana (THC) Screen Quality Measures Quality Measures none Advance care planning discussed with:: patient Assessment & Plan Assessment Current Active Medications: Generic Name Dose Route Start Last Admin Trade Name Freq PRN Reason Stop Dose Admin Acetaminophen 650 mg 12/25/24 15:17 Acetaminophen 325 Mg Tablet PO 01/24/25 15:16 Q6H PRN Fever >101.5 and pain 1-3 Hydrocodone Bitart/Acetaminophen 1 tab 12/25/24 15:57 12/26/24 05:29 Hydrocodone/Apap 5/325 Tablet PO 12/30/24 15:16 1 tab Q6H PRN Administration Pain Scale 6-10 (Severe Amitriptyline HCl 25 mg 12/25/24 21:00 12/25/24 21:01 Amitriptyline Hcl 25 Mg Tablet PO 01/24/25 20:59 25 mg HS RAMON Administration Lactated Ringer's 1,000 mls @ 100 mls/hr 12/26/24 08:15 12/26/24 10:58 Lactated Ringers IV 12/26/24 18:14 100 mls/hr .Q10H ONE Administration Lactobacillus Rhamnosus 1 cap 12/25/24 21:00 12/26/24 09:28 Lactobacillus Rhamnosus 1 Cap PO 01/24/25 20:59 1 cap BID RAMON Administration Levothyroxine Sodium 112 mcg/ 137 mcg 12/26/24 06:00 12/26/24 05:23 Levothyroxine Sodium 25 mcg PO 01/25/25 05:59 137 mcg ACBR RAMON Administration Metronidazole 250 mg 12/25/24 22:00 12/26/24 05:23 Metronidazole 250 Mg Tablet PO 01/01/25 21:59 250 mg TID RAMON Administration Ondansetron HCl 4 mg 12/25/24 15:17 Ondansetron Inj 2 Mg/Ml Inj 2 Ml IVP 01/24/25 15:16 Q6H PRN NAUSEA OR VOMITING Protocol Plan Patient is a 79-year-old female with past medical history of hypertension, GA, liver mass, hypothyroidism who presents on 12/25 for persistent diarrhea since discharge on 12/10, admitted again for management of intractable vomiting and diarrhea. # Intractable nausea and vomiting #Persistent diarrhea 2/2 Giardia Previously admitted from 12/04 - 12/09 for similar complaints. Tested positive for Giardia with elevated stool calprotectin. Negative workup for IBD. Was recommended to avoid drinking tap water. Reports she is drinking bottled water as there has been a public health announcement in her area regarding water consumption; however still uses ice made from tap water. Colonoscopy only showed hemorrhoids and multiple medium mouth diverticula in the sigmoid and descending colon. On admission, WBC elevated 12.5 however suspect hemoconcentration as all cell lines have increased significantly including hemoglobin and platelets. Plan: ? Oral metronidazole 250 mg 3 times daily (12/25- ) ? Zofran 4 g Q6hr prn ? Pending stool studies and Giardia ? CTM CBC ? Consulted infectious disease Dr Al, appreciate recommendations #KADI, prerenal, improving On admission, creatinine 1.8, baseline 1.2. Likely secondary to loss from diarrhea and vomiting. S/p IV LR 1 L bolus. Plan: ? IV LR maintenance at 125 mL/h (12/25- - Encouraged oral hydration ? Avoid nephrotoxic agents ? CTM renal panel ? Hold antihypertensive lisinopril and triamterene hydrochlorothiazide #Hyperkalemia, improving On admission, potassium 5.7 => 5.0. Likely in setting of volume loss. S/p calcium gluconate and insulin with dextrose in ED. No EKG changes noted. Asymptomatic. Plan: - CTM potassium level - Holding lisinopril and HCTZ as above - Volume repletion as above #Hypertension Takes amlodipine 5 mg daily, lisinopril 20 mg, triamterene hydrochlorothiazide daily at home. ? Hold lisinopril and triamterene?HCTZ in setting of KADI and normotensive BP ? Amlodipine 5 mg daily ?CTM blood pressure #Liver mass #Pulmonary nodules Chronic problem. Previous workup showed a liver mass nonmalignant. Still pending workup for pulmonary nodules. ?No inpatient treatment at this time ?CTM CMP #Hypothyroidism #Anxiety #Gout ?Resume home levothyroxine and amitriptyline ?Follow-up TSH ?Hold allopurinol Health Maintenance Disposition: MedSurg DVT prophylaxis: SCDs GI prophylaxis: None Diet: Regular CODE STATUS: Full Patient plan of care was discussed with the resident, Dr. Parker, and the attending physician, Dr. Felix. Orly Paez, PGY-1 Attending Provider Attestation/Addendum I have discussed and was present for the essential components of the history, physical examination, diagnosis, and treatment plan with the resident. I agree with the patient's care as documented by the resident and amended herein by me. Kieran Felix DO. Although this document has been carefully reviewed, there may still be some phonetic and other typographical errors. These errors are purely grammatical due to imperfections in the software program and should not be construed in any way to compromise the substance of the patient's medical care during this visit. Patient seen and evaluated this AM. In short, patient is a 79-year-old female with past medical history of hypertension, GA, liver mass, hypothyroidism who presents on 12/25 for persistent diarrhea since discharge on 12/10, admitted again for management of intractable vomiting and diarrhea. Of note, previous admission mid month for similar complaints, also previously diagnosed with Giardia suspected from her [place]. Will continue oral metronidazole 250 mg 3 times daily for now, infectious disease consulted however will see the patient tomorrow on Wednesday 12/27. Patient also came in with a prerenal KADI, likely from her copious vomiting and diarrhea however renal function has improved with fluids. Patient has not had any more episodes of diarrhea in the hospital and feels significantly better. Repeat Giardia serologies testing, likely discharge tomorrow on 12/27 if she continues to improve and based on infectious disease recommendations.
--- NOTE | 2024-12-26 13:22 | PC.SS ---
SS met with patient regarding her d/c plan. Pt is alert/oriented. Pt was admitted for Intractable Vomiting And Diarrhea. Pt confirmed demographic and contact information is correct on facesheet. Patient's address is: [address] [place] [id number]. Pt resides with . Pt ambulates using a can inside the house and 4 wheel with seat, rollator walker outside the home. Pt is ok with all ADLs. Pt named her , Dick Poe medical decision maker if she is unable. SS provided verbal options for d/c to home or SNF. Patient?s choice is to return home upon d/c. Pt Pt states she is not diabetic and is not on dialysis. Pt followed up with PCP Dec 15, 2024. D/C plan: Return home Next of Kin: Dick Poe, , phone# [phone] PCP: Dr. Tona Metz Address: Correct on facesheet
[2024-12-26] MEDS: AMITRIPTYLINE HCL 25 MG TABLET PO (20:37)
[2024-12-27] VITALS: BP 120/69; PULSE 66; RESP 23; TEMP 36.1; O2SAT 94
[2024-12-27 00:45] VITALS: PULSE 65; RESP 18; RESP 95
[2024-12-27 04:00] VITALS: BP 134/97; PULSE 73; RESP 19; TEMP 36.1; O2SAT 95
[2024-12-27 05:11] LABS: Basophils # (Auto) 0.1 Thou/mm3 (0.0-0.2); Basophils % (Auto) 1 % (0-2.5); Eosinophils # (Auto) 0.2 Thou/mm3 (0.0-0.5); Eosinophils % (Auto) 2 % (0-10); Hematocrit 43.8 % (36.0-46.0); Hemoglobin 13.9 g/dL (12.0-16.0); Immature Granulocytes Auto 0.07 Thou/mm3 (0.00-0.00); Lymphocytes # (Auto) 1.8 Thou/mm3 (1.0-4.8); Lymphocytes % (Auto) 22 % (10-50); Mean Corpuscular HGB Conc 31.7 g/dl (31.0-37.0); Mean Corpuscular Hemoglobin 29.9 pg (25.0-35.0); Mean Corpuscular Volume 94 fL (80-100); Monocytes # (Auto) 0.6 Thou/mm3 (0.0-0.8); Monocytes % (Auto) 8 % (0-12); Neutrophils # (Auto) 5.5 Thou/mm3 (1.8-7.7); Neutrophils % (Auto) 66 % (37-80); Nucleated Red Blood Cell # 0.00 Thou/mm3 (0.00-0.00); Nucleated Red Blood Cell % 0 /100 WBC (0); Platelet Count 236 Thou/mm3 (140-440); RDW Standard Deviation 50.2 fL (36.4-46.3); Red Blood Count 4.65 Miln/mm3 (4.00-5.20); White Blood Count 8.2 Thou/mm3 (3.6-11.0)
[2024-12-27] MEDS: HYDROcodone/APAP 5/325 TABLET 1 TAB PO (05:16)
[2024-12-27 06:03] LABS: Anion Gap 10 (7-16); BUN/Creatinine Ratio 16 Ratio (12-20); Blood Urea Nitrogen 23 mg/dL (9-23); Calcium 9.4 mg/dL (8.3-10.6); Carbon Dioxide 24.1 mMol/L (20.0-31.0); Chloride 105 mMol/L (98-107); Creatinine (Component) 1.4 mg/dL (0.6-1.3); Estimated Creatinine Clearance 49.0 mL/min (>60); Glucose 83 mg/dL (74-106); Osmolality,Calculated 280 (275-295); Potassium 4.6 mMol/L (3.4-5.1); Sodium 139 mMol/L (136-145); eGFR 41 See Note
[2024-12-27 06:40] LABS: Hepatitis C Antibody Non Reactive (Non React)
[2024-12-27 07:50] VITALS: BP 134/91; PULSE 105; RESP 18; TEMP 35.7; O2SAT 96
[2024-12-27] MEDS: LACTOBACILLUS RHAMNOSUS 1 CAP PO (08:10)
[2024-12-27 09:08] VITALS: PULSE 84; RESP 16; RESP 97
[2024-12-27 12:05] VITALS: BP 143/89; PULSE 98; RESP 18; TEMP 36.1; O2SAT 95
--- NOTE | 2024-12-27 13:44 | PC.SS ---
SS follow up note; Stool study pending. Patient will discharge home when medically cleared.
--- NOTE | 2024-12-27 13:56 | ESDS_ITS ---
<Statement entered by Tiffany Carney MD - 01/05/25 08:16> I reviewed above note and agree with findings and plans. I have also personally examined the patient with medicine team and went over assessment and plan with medical team including engineer internship and resident physician. Planned Discharge Date 12/27/24 DS: Providers Provider Date of admission: 12/25/24 15:17 Primary care physician: Tona Metz MD Admitting Provider: Logan Felix DO Attending Provider on Admission: Logan Felix DO Consults: 12/25/24 17:09 Consult to Infectious Diseases Routine Comment: Consulting Provider: Alexey Al Attending Provider on DC: Tiffany Carney MD Discharging Provider: Tiffany Carney MD DS: Diagnosis Problem List Completed Was Problem List Reviewed/Reconciled?: Yes Hospital Course Hospital Course Hospital course: 79-year-old female with past medical history of hypertension, GA, liver mass, hypothyroidism who presents on 12/25 for persistent diarrhea since discharge on 12/10, admitted again for management of intractable vomiting and diarrhea. At her previous admission she was positive for Giardia. ED Course: -Initial vitals were BP 124/75, HR 90, RR 19, afebrile, 94% on room air -Labs significant for WBC 12.5, hemoglobin 16.0. Sodium 135, potassium 5.7, bicarb 19.2, anion gap 10 BUN 38, creatinine 1.8. Magnesium 2.7. AST 35, ALT 29, alk phos 204. Lactic acid 1.3, Pro-Myron 2.12. EKG shows sinus rhythm with no ST or T wave abnormalities. Of note, QTc 426. -In the ED, patient was given prochlorperazine, LR bolus 1L, calcium gluconate, insulin and dextrose Hospital course: Patient was started on oral metronidazole 250 mg 3 times daily. At time of discharge patient had been >24hrs w/o diarrhea, N+V. Giardia panel result from admission pending. Pre-renal KADI and hyperkalemia resolved w/ fluids. Discharge instructions: - Complete five (5) more days of Giardia treatment with Flagyl 250mg by mouth three times a day - Please follow-up with your PCP within 1 week of discharge or follow-up at the [facility] [address] [place], [place] [id number] - Ask your PCP to follow-up on stool studies - Please follow-up with Dr. Camargo (oncology) for pulmonary nodules as seen on CT and 16mm right tracheobronchial lymph node - Continue all other home medications as prescribed - If your symptoms worsen or if you develop new chest pain, shortness of breath, worsening diarrhea or bleeding - please come back to the ED immediately. Admission diagnoses: #Intractable nausea and vomiting, resolved #Persistent diarrhea, resolved #KADI, prerenal, resolved #Hyperkalemia, resolved #Hx of Hypertension #Hx of Liver mass #Hx of Pulmonary nodules #Hx of Hypothyroidism #Hx Anxiety #Hx Gout Case discussed with my attending Dr. Angelika Brown MD PGY-1 Time Spent with Patient Time attestation: Total time spent providing and/or coordinating discharge services: Time spent: Greater than 30 minutes Exam Vital Signs Temp Pulse Resp BP Pulse Ox O2 Del Method 96.3 F L 84 16 134/91 H 96 Room Air 12/27/24 07:50 12/27/24 09:08 12/27/24 09:08 12/27/24 07:50 12/27/24 07:50 12/27/24 07:50 Narrative Exam General: Awake and in no acute distress. Conversational and non-toxic appearing. Laying in bed comfortably. HEENT: Normocephalic, atraumatic, mucous membranes moist. Heart: Regular rate and rhythm, normal S1 and S2, no murmurs. Lungs: Clear to auscultation with no wheezing or crackles. Abdomen: Soft, nondistended, nontender, positive bowel sounds. No guarding or rebound tenderness. Neurologic: Alert and oriented x3, no gross neurological deficit, and patient able to move all 4 extremities. Extremities: No edema. Skin: No rash or ecchymoses. Discharge Plan Plan Patient Disposition: HOME (Self Care) Patient condition on transfer: Stable Care Plan Goals: Complete five (5) more days of Giardia treatment with Flagyl 250mg by mouth three times a day Please follow-up with your PCP within 1 week of discharge or follow-up at the [facility] [address] [place], [place] [phone] Ask your PCP to follow-up on stool studies Please follow-up with Dr. Camargo (oncology) for pulmonary nodules as seen on CT and 16mm right tracheobronchial lymph node Continue all other home medications as prescribed If your symptoms worsen or if you develop new chest pain, shortness of breath, worsening diarrhea or bleeding - please come back to the ED immediately. Prescriptions/Referrals Prescriptions/Med Rec: New metronidazole 250 mg Tablet 250 mg PO TID 5 Days Qty: 15 0RF Continued lisinopril 20 mg tablet 20 mg PO DAILY amitriptyline 25 mg tablet 25 mg PO DAILY levothyroxine 137 mcg tablet 137 mcg PO DAILY acetaminophen-codeine 300-60 mg tablet 1 tab PO Q6H PRN (Reason: pain (scale score 7-10)) Patient Comments: TAKE 1 TABLET BY MOUTH EVERY 6 HOURS NEEDED amlodipine 5 mg tablet 5 mg PO DAILY triamterene-hydrochlorothiazid 75-50 mg tablet 1 tab PO DAILY Patient Comments: TAKE 1 TABLET BY MOUTH DAILY allopurinol 100 mg tablet 100 mg PO DAILY Referrals: Tona Metz MD [Primary Care Provider, Family Practice] Patient/Caregiver Discharge Instructions Education Materials: Tests for Liver Disease Print Language: Irish Stand Alone Forms: [employer] Award Info., Patient Portal Info Letter, Work/Release Restrictions Discharge Order Discharge Orders: Discharge (Routine); Ordered 12/27/24 Ordered By: Stef Byrd Quality Discharge Quality Measures VTE prophylaxis
[2024-12-28 11:55] LABS: Campylobacter PCR Negative (Negative); Salmonella Species PCR Negative (Negative); Shiga Toxin PCR Negative (Negative); Shigella Species PCR Negative (Negative)
[2025-01-01 07:25] LABS: Giardia Result NOT DETECTED
== END 2024-12-27 12:45 | disposition home or self-care (01) ==
LOC: SERX 14:33 → SERHOLD 15:38 → S3NX 17:46 → SERHOLD 12-26 14:22 → S3NX 12-26 14:22
PROVIDERS: Internal Medicine Infectious Disease; Registered Nurse General Practice; Admitting Provider Student in an Organized Health Care Education/Training Program; Emergency Provider Family Medicine; PCP Family Medicine; Visit Provider Student in an Organized Health Care Education/Training Program
DX: E87.5 Hyperkalemia (principal); N17.9 Acute kidney failure, unspecified; E03.9 Hypothyroidism, unspecified; I10 Essential (primary) hypertension; R91.8 Other nonspecific abnormal finding of lung field; M10.9 Gout, unspecified; F41.9 Anxiety disorder, unspecified; R16.0 Hepatomegaly, not elsewhere classified; G47.33 Obstructive sleep apnea (adult) (pediatric)
CPT/HCPCS: 36415; 80048; 80053; 80069; 80076; 80307; 81001; 83036; 83605; 83690; 83735; 83880; 84145; 84443; 85025; 85610; 85730; 86803; 87015; 87045; 87046; 87081; 87329; 87899; 93005; 96360; 99284; G0378; J0612; J0780; J1815; J7120; A9270

== ENCOUNTER 2025-01-07 05:25 | Emergency (ER) | payer MEDICARE, SELFPAY ==
[2025-01-07 06:00] VITALS: BP 135/77; PULSE 82; PULSE 98; RESP 18; TEMP 36.8; O2SAT 95; O2SAT 98; BMI 41.5
--- NOTE | 2025-01-07 06:41 | EDNOTE_ITS ---
ED Abdominal Pain RME/HPI General Chief Complaint: Abdominal Pain Stated complaint: ABDOMINAL PAIN Time seen by provider: 01/07/25 06:20 Arrival date/time: 01/07/25 05:25 RME / HPI RME / HPI narrative: DR. DUARTE MAIN ED EVALUATION: 69-year-old female here for evaluation of abdominal pain with constipation. States that she has been dealing with stomach issues for the past month approximately. Has been admitted for diarrhea, Giardia, KADI in the past month with last admission being at the end of November, discharged on December 27. States that for the last 5 days she has been unable to have a bowel movement with last episode being small black pellets. Having pains to her lower abdomen and rectum that is worse with standing and sitting. Has tried laxative chews and stool softener at home with no improvement. This is accompanied by nausea though denies any vomiting, fever, dysuria, hematuria, other acute symptoms at this time. Notes that in the past month she has had a colonoscopy done which was unremarkable as well as biopsy of liver mass that was found to be negative for malignancy. Has past medical history significant for hypertension, hypothyroidism, arthritis, hip replacement, vertebral compression fracture. Notes that she takes Tylenol No. 4 2-3 times daily for pain as needed. Related Data Home Medications ?Medication ?Instructions ?Recorded ?Confirmed acetaminophen 300 mg-codeine 60 mg 1 tab PO Q6H PRN pa in (scale score 12/04/24 12/25/24 tablet 7-10) allopurinol 100 mg tablet 100 mg PO DAILY 12/04/24 amitriptyline 25 mg tablet 25 mg PO DAILY 12/04/24 amlodipine 5 mg tablet 5 mg PO DAILY 12/04/2412/25 levothyroxine 137 mcg tablet 137 mcg PO DAILY 12/04/24 12/25/24 lisinopril 20 mg tablet 20 mg PO DAILY 12/04/2411/28 triamterene 75 1 tab PO DAILY 12/04/2411/28 mg-hydrochlorothiazide 50 mg tablet Previous Rx's ?Medication ?Instructions ?Recorded bisacodyl 5 mg tablet 5 mg PO QDAY PRN constipatio n #10 01/07/25 tabs polyethylene glycol 3350 17 17 g PO BID PRN constipati on #476 01/07/25 gram/dose oral powder (Miralax) grams Allergies Allergy/AdvReac Type Severity Reaction Status Date / Time No Known Allergies Allergy Verified 12/07/24 14:34 Review of Systems Review of Systems Systems Reviewed: All systems reviewed, normal except as documented Past Medical History Past Medical History CARDIAC: Positive Cardiac Disorders and Hypertension MUSCULOSKELETAL: Positive Arthritis ENDOCRINE: Positive Endocrine Disorders and Hypothyroidism Surgical History SURGICAL: Positive Abdominal Surgery, Joint Replacement and Hysterectomy Social History SMOKING STATUS: Former smoker SECOND HAND EXPOSURE: No SUBSTANCE USE: does not use ALCOHOL: Never Past Medical History Comments PMH COMMENT: As noted in chart. ED Exam Narrative Physical exam: Constitutional: Awake, alert, morbidly obese, anxious, tearful. HEENT: Normocephalic, atraumatic, extraocular movements intact. Neck: Supple CV: Regular rate and rhythm, no murmurs/rubs/gallops Lungs: Clear to auscultation BL, no respiratory distress. Abd: Soft, NT, nondistended, mildly tender to abdomen in general, worse to periumbilical region. No rebound or guarding, large abdominal pannus somewhat limits exam. Skin: Warm, dry, intact Course Quality Measures none Orders Category Date Time Status CT Screening NOW Care 01/07/25 08:42 Active Enema Administration NOW Care 01/07/25 06:28 Active Insert IV NOW Care 01/07/25 06:[address] abdomen pelvis w con Stat Exams 01/07/25 08:42 Completed CBC Stat Lab 01/07/25 06:30 Completed CMP [Comprehensive Metabolic Panel] Stat Lab 01/07/25 06:30 Completed Urinalysis, C/S if Indicated Stat Lab 01/07/25 08:36 Completed Acetaminophen Ivpb [Ofirmev Inj] Med 01/07/25 06:28 Discontinued 1,000 mg in 100 ml IV NOW Acetaminophen Tab [Tylenol Tab] Med 01/07/25 13:07 Discontinued 1,000 mg PO X1 ONE Magnesium Citrate Liqd [Citrate of Magnesia Liqd] Med 01/07/25 13:07 Discontinued 300 ml PO X1 ONE Ondansetron Inj [Zofran Inj] Med 01/07/25 06:28 Discontinued 4 mg IVP X1 ONE Vital Signs Vital signs: Vital Signs Temperature 98.3 F 01/07/25 06:00 Pulse Rate 82 01/07/25 06:00 Respiratory Rate 18 01/07/25 06:00 Blood Pressure 135/77 H 01/07/25 06:00 Pulse Oximetry (%) 95 01/07/25 06:00 Oxygen Delivery Method Room Air 01/07/25 06:00 Abdominal Pain MDM MDM Narrative MDM Narrative:: I, Becca White, am scribing for and in the presence of Dr. Duarte. 1300h: Checked on patient, has had a bowel movement with the enema here. CT abdomen pelvis with IV and p.o. contrast was obtained with no significant acute concerning findings noted. Patient is vitally stable. Okay for discharge home at this time. Will recommend additional medications for constipation for home in addition to prune juice 1 cup daily for the next several days for constipation as well. To follow-up with her PCP later this week for recheck. Patient data External records reviewed:: [facility] previous records and EMS form Clinical information provided by:: patient and EMS Social determinants that could affect healthcare access:: none Patient has the following chronic illnesses:: Has been admitted for diarrhea, Giardia, KADI in the past month with last admission being at the end of November, discharged on December 27. Notes that in the past month she has had a colonoscopy done which was unremarkable as well as biopsy of liver mass that was found to be negative for malignancy. Other past medical history significant for hypertension, hypothyroidism, arthritis, hip replacement, vertebral compression fracture. How is presenting disease/condition affected by chronic disease/condition?: exacerbated by Evaluation data The following diagnostics were reviewed and interpreted by me:: lab results Lab and/or radiology exams considered but not ordered:: none Interpretation Summary: Procedure(s): CT abdomen pelvis w con Accession Number(s): [id number] cc: Kenn Carballo MD; Christina Duarte MD; Tona Koehler MD~ Examination: CT abdomen with intravenous contrast CT pelvis with intravenous contrast 2-D coronal reconstructions 2-D sagittal reconstructions Date and time of exam: January 07, 2025, 11:14 a.m. INDICATIONS: Lower abdominal pain constipation beginning 4 days ago, CT study 12/07/2024 liver biopsy, multiple liver lesions on 12/04/2024 exam. CTDI: vol (mGy) 23 DLP: (mGycm) 1245 Technique: Multiple axial sections of the abdomen and pelvis have been obtained. 64 slice high-resolution scanner used. 3 mm axial sections have been obtained, post intravenous injection of 30 cc Isovue-300 2-D sagittal, coronal reconstructions obtained. Low dose protocols were performed. One or more of the following dose reduction techniques were used; automated exposure control, adjustment of the mA and/or KV according to patient size, use of iterative reconstruction technique. Findings: Contrast administration is low dose Enlarged liver Spleen is not remarkable No gallstones No pancreatic mass Tiny nonobstructing renal calculi Abundant stool in the colon but no obstruction Small bowel loops are not dilated Urinary bladder intact No pelvic mass Severe osteopenia with chronic osteoporotic compression L4 IMPRESSION: Contrast opacification is minimal No gallstones No pancreatic mass Tiny bilateral nonobstructing renal calculi Abundant stool in the colon but no obstruction Dictated By: Kenn Carballo MD Medications / Prescriptions Medications or Prescriptions considered but not ordered:: none Medication administrations:: Medication Administration History Discontinued Medications Acetaminophen (Acetaminophen 325 Mg Tablet) 1,000 mg PO X1 ONE Stop: 01/07/25 13:08 Acetaminophen (Ofirmev Inj) 1,000 mg in 100 mls @ 250 mls/hr IV NOW ONE Stop: 01/07/25 06:51 Last Infusion: 01/07/25 08:00 Dose: Infused Documented By: Admin: 01/07/25 07:36 Dose: 250 mls/hr Documented By: DALLIN Magnesium Citrate (Magnesium Citrate 300 Ml Btl) 300 ml PO X1 ONE Stop: 01/07/25 13:08 Ondansetron HCl (Ondansetron Inj 2 Mg/Ml Inj 2 Ml) 4 mg IVP X1 ONE; Protocol Stop: 01/07/25 06:29 Last Admin: 01/07/25 07:35 Dose: 4 mg Documented By: DALLIN see above Consultations Consultation(s) initiated? (list below): No Diagnosis Differential diagnosis abdominal pain: other (Opioid-induced constipation, fecal impaction, partial bowel obstruction, colonic dysmotility, irritable bowel syndrome, or electrolyte imbalance.) Most likely diagnosis given after review of the tests above:: Constipation Admission Indicated Admission indicated?: not indicated Admission Request Was there a request for admission?: No Disposition Plan Disposition Plan: Discharge Discharge Attestation Discharge Attestation: The patient and all family members were given an opportunity to ask questions and understood the discharge instructions. Discharge instructions specifically effects, indications for sooner follow up or return to the emergency department, and the expected course of current diagnosis. Patient condition: Stable Discharge Plan Plan Patient Disposition: HOME (Self Care) Patient condition on transfer: Stable Prescriptions/Referrals Prescriptions/Med Rec: New polyethylene glycol 3350 [Miralax] 17 gram/dose powder 17 g PO BID PRN (Reason: constipation) Qty: 476 0RF Rx Instructions: May take 1 dose 3 times daily for the next 2 days, then twice daily for the 2 days after that, then once daily thereafter as needed for constipation. bisacodyl 5 mg tablet 5 mg PO QDAY PRN (Reason: constipation) Qty: 10 0RF No Action lisinopril 20 mg tablet 20 mg PO DAILY amitriptyline 25 mg tablet 25 mg PO DAILY levothyroxine 137 mcg tablet 137 mcg PO DAILY acetaminophen-codeine 300-60 mg tablet 1 tab PO Q6H PRN (Reason: pain (scale score 7-10)) Patient Comments: TAKE 1 TABLET BY MOUTH EVERY 6 HOURS NEEDED amlodipine 5 mg tablet 5 mg PO DAILY triamterene-hydrochlorothiazid 75-50 mg tablet 1 tab PO DAILY Patient Comments: TAKE 1 TABLET BY MOUTH DAILY allopurinol 100 mg tablet 100 mg PO DAILY Referrals: Tona Metz MD [Primary Care Provider, Family Practice] - In 1 week Problem List Clinical Impression: Constipation Patient/Caregiver Discharge Instructions Education Materials: Eating a High-Fiber Diet, ED Constipation (Adult) Additional Instructions: Some general health principles that can help you are the [employer] START principles: Nutrition (eat a plant-based diet, avoiding meats in general, avoiding highly processed foods) Exercise (Daily exercise/walks as tolerated) Water (Drink adequate fresh water to maintain hydration, concentrating on water rather than on soda, coffee, tea, juice, etc for hydration) [place] (Spend time - 15-20 minutes or so with skin exposed in the front desk auxiliary and late evening sun for Vitamin D health benefits) [place] (Avoid alcohol, illicit drugs, caffeinated beverages, smoking, etc) Air (Deep breathing exercises in the early mornings in fresh air) Rest (Adequate rest at night, going to bed a few hours before midnight and avoiding all screens/television/loud music in the time right before going to bed, also avoiding heavy meals just prior to going to bed) Trust in God (Spend time daily in Bible study and prayer - health benefits in contemplation of God's true character) Additional resources that can benefit: [email or web address], look under resources and seminars. Another good website is [email or web address] Print Language: B[place]ud[place] Stand Alone Forms: [employer] Award Info., Patient Portal Info Letter
[2025-01-07 07:12] LABS: Basophils # (Auto) 0.1 Thou/mm3 (0.0-0.2); Basophils % (Auto) 1 % (0-2.5); Eosinophils # (Auto) 0.0 Thou/mm3 (0.0-0.5); Eosinophils % (Auto) 0 % (0-10); Hematocrit 46.6 % (36.0-46.0); Hemoglobin 15.1 g/dL (12.0-16.0); Immature Granulocytes Auto 0.13 Thou/mm3 (0.00-0.00); Lymphocytes # (Auto) 1.4 Thou/mm3 (1.0-4.8); Lymphocytes % (Auto) 9 % (10-50); Mean Corpuscular HGB Conc 32.4 g/dl (31.0-37.0); Mean Corpuscular Hemoglobin 30.1 pg (25.0-35.0); Mean Corpuscular Volume 93 fL (80-100); Monocytes # (Auto) 0.8 Thou/mm3 (0.0-0.8); Monocytes % (Auto) 5 % (0-12); Neutrophils # (Auto) 12.7 Thou/mm3 (1.8-7.7); Neutrophils % (Auto) 84 % (37-80); Nucleated Red Blood Cell # 0.00 Thou/mm3 (0.00-0.00); Nucleated Red Blood Cell % 0 /100 WBC (0); Platelet Count 262 Thou/mm3 (140-440); RDW Standard Deviation 50.2 fL (36.4-46.3); Red Blood Count 5.01 Miln/mm3 (4.00-5.20); White Blood Count 15.2 Thou/mm3 (3.6-11.0)
[2025-01-07 07:29] LABS: Alanine Aminotransferase 34 U/L (10-49); Albumin, Serum 3.9 gm/dL (3.4-4.8); Albumin/Globulin Ratio 1.5 (1.2-2.2); Alkaline Phosphatase 276 U/L (46-116); Anion Gap 10 (7-16); Aspartate Amino Transferase 39 U/L (0-34); BUN/Creatinine Ratio 15 Ratio (12-20); Bilirubin,Total 0.3 mg/dL (0.3-1.2); Blood Urea Nitrogen 21 mg/dL (9-23); Calcium 9.3 mg/dL (8.3-10.6); Calcium (Corrected) 9.4 mg/dL (8.5-10.1); Carbon Dioxide 19.7 mMol/L (20.0-31.0); Chloride 105 mMol/L (98-107); Creatinine (Component) 1.4 mg/dL (0.6-1.3); Estimated Creatinine Clearance 49.0 mL/min (>60); Globulin 2.6 gm/dL (2.3-3.5); Glucose 110 mg/dL (74-106); Osmolality,Calculated 274 (275-295); Potassium 4.8 mMol/L (3.4-5.1); Sodium 135 mMol/L (136-145); Total Protein 6.5 gm/dL (5.7-8.2); eGFR 41 See Note
[2025-01-07] MEDS: ONDANSETRON INJ 2 MG/ML INJ 2 ML 4 MG IVP (07:35)
[2025-01-07] MEDS: ACETAMINOPHEN IVPB 1,000 MG/100 ML VIAL 250 MG IV (07:36)
--- NOTE | 2025-01-07 07:59 | PC.NURSE ---
PT TEARFUL UPON ASSUMPTION OF CARE, STATES THAT SHE NEEDS TO BE DISIMPACTED. PT STATED SHE PEED ON HERSELF, INCONT CARE WAS PROVIDED. THIS RN STARTED IV, ADMINISTERED MEDS, AND ENEMA. WILL CONT W/POC
--- NOTE | 2025-01-07 08:42 | XR_ITS ---
Examination: CT abdomen with intravenous contrast CT pelvis with intravenous contrast 2-D coronal reconstructions 2-D sagittal reconstructions Date and time of exam: January 07, 2025, 11:14 a.m. INDICATIONS: Lower abdominal pain constipation beginning 4 days ago, CT study 12/07/2024 liver biopsy, multiple liver lesions on 12/04/2024 exam. CTDI: vol (mGy) 23 DLP: (mGycm) 1245 Technique: Multiple axial sections of the abdomen and pelvis have been obtained. 64 slice high-resolution scanner used. 3 mm axial sections have been obtained, post intravenous injection of 30 cc Isovue-300 2-D sagittal, coronal reconstructions obtained. Low dose protocols were performed. One or more of the following dose reduction techniques were used; automated exposure control, adjustment of the mA and/or KV according to patient size, use of iterative reconstruction technique. Findings: Contrast administration is low dose Enlarged liver Spleen is not remarkable No gallstones No pancreatic mass Tiny nonobstructing renal calculi Abundant stool in the colon but no obstruction Small bowel loops are not dilated Urinary bladder intact No pelvic mass Severe osteopenia with chronic osteoporotic compression L4 IMPRESSION: Contrast opacification is minimal No gallstones No pancreatic mass Tiny bilateral nonobstructing renal calculi Abundant stool in the colon but no obstruction
[2025-01-07 08:44] LABS: Collection Type, Urine Catheter
--- NOTE | 2025-01-07 09:11 | PC.NURSE ---
Pt had large bm after getting enema.
[2025-01-07 09:17] LABS: Bacteria,Urine Rare; Bilirubin,Urine Negative (Negative); Blood,Urine Negative (Negative); Clarity,Urine Clear (Clear/Hazy); Color,Urine Lt-Yellow (Lt Yel-Yel); Culture Indicated,Urine Not Indicated; Glucose, Urine Negative (Negative); Ketones,Urine Negative (Negative); Leukocyte Esterase,Urine Negative (Negative); Nitrite,Urine Negative (Negative); PH,Urine 6.5 (5.0-7.0); Protein,Urine Negative (Neg - Trace); RBC,Urine 1 /hpf (0-3); Specific Gravity,Urine 1.014 (1.001-1.035); Squamous Epithelial Cell,Urine 1 /hpf (0-5); Urobilinogen,Urine Negative mg/dL (0.0-1.0); WBC,Urine < 1 /hpf (0-5)
[2025-01-07 10:06] VITALS: BP 96/61; PULSE 85; RESP 16; TEMP 36; O2SAT 95
[2025-01-07] MEDS: ACETAMINOPHEN 325 MG TABLET 1000 MG PO (15:07)
[2025-01-07] MEDS: MAGNESIUM CITRATE 300 ML BTL PO (15:08)
[2025-01-07 15:10] VITALS: BP 119/88; PULSE 104; RESP 15; TEMP 37.1; O2SAT 95
== END 2025-01-07 15:22 | disposition home or self-care (01) ==
PROVIDERS: Emergency Provider Family Medicine; PCP Family Medicine
DX: K59.00 Constipation, unspecified (principal); E03.9 Hypothyroidism, unspecified; I10 Essential (primary) hypertension; M19.90 Unspecified osteoarthritis, unspecified site; Z96.649 Presence of unspecified artificial hip joint; Z79.890 Hormone replacement therapy
CPT/HCPCS: 36415; 74177; 80053; 81001; 85025; 96365; 96375; 99284; A4649; J0131; J2405; Q9963; Q9967; A9270

== ENCOUNTER 2025-02-17 18:21 | Inpatient (IN) | payer MEDICARE, SELFPAY ==
[2025-02-17] VITALS (11 sets, daily range): BP systolic 104–163; BP diastolic 67–92; PULSE 86–98; RESP 15–95; TEMP 36.4; O2SAT 92–100; BMI 41.5
--- NOTE | 2025-02-17 19:01 | PD.EDABDPN ---
ED Abdominal Pain RME/HPI General Chief Complaint: Abdominal Pain Stated complaint: ABDOMINAL PAIN Time seen by provider: 02/17/25 18:34 Arrival date/time: 02/17/25 18:21 RME / HPI RME / HPI narrative: DR. JUAREZ MAIN ED EVALUATION: Patient reports having been diagnosed with Giardia intestinal infection 3 weeks [employer] on several courses of antiparasitics and has a steady decline in course. Reports progressive weakness and having to of been hospitalized due to fecal impaction secondary to anti-diarrheal agents. Today, was having difficulty arousing patient from sleep, prompting to notify paramedics. Upon arrival, patient was found to be awake and oriented. Patient reports ongoing abdominal pain, weight loss, and progressive weakness. Patient was ambulatory 3 months [employer] and now has difficulty assuming upright position. Denies fever, chills, vomiting, but reports chronic intermittent diarrhea. PMH: Hypertension, Giardia (01/20)x, Arthritis, Gout, Hypothyroidism PSH: Joint Replacement, Hysterectomy Allergies: NKDA Social: Negative Related Data Home Medications ?Medication ?Instructions ?Recorded ?Confirmed acetaminophen 300 mg-codeine 60 mg 1 tab PO Q6H PRN pain (scale score 12/04/24 12/25/24 tablet 7-10) allopurinol 100 mg tablet 100 mg PO DAILY 12/04/24 12/25/24 amitriptyline 25 mg tablet 25 mg PO DAILY 12/04/24 12/25/24 amlodipine 5 mg tablet 5 mg PO DAILY 12/04/24 12/25/24 levothyroxine 137 mcg tablet 137 mcg PO DAILY 12/04/24 12/25/24 lisinopril 20 mg tablet 20 mg PO DAILY 12/04/24 12/25/24 triamterene 75 1 tab PO DAILY 12/04/24 12/25/24 mg-hydrochlorothiazide 50 mg tablet Previous Rx's ?Medication ?Instructions ?Recorded bisacodyl 5 mg tablet 5 mg PO QDAY PRN constipation #10 01/07/25 tabs polyethylene glycol 3350 17 17 g PO BID PRN constipation #476 01/07/25 gram/dose oral powder (Miralax) grams Allergies Allergy/AdvReac Type Severity Reaction Status Date / Time No Known Allergies Allergy Verified 12/07/24 14:34 Review of Systems Review of Systems Systems Reviewed: All systems reviewed, normal except as documented Past Medical History Past Medical History CARDIAC: Positive Hypertension GASTROINTESTINAL: Positive Gastrointestinal Disorders (Giardia 01/20) MUSCULOSKELETAL: Positive Arthritis and Gout ENDOCRINE: Positive Endocrine Disorders and Hypothyroidism Surgical History SURGICAL: Positive Abdominal Surgery, Joint Replacement and Hysterectomy ED Exam Narrative Physical exam: GEN. APPEARANCE: The patient is alert awake oriented X-3 morbidly obese c/o vague abdominal discomfort/bloating, lying down comfortably, does not look ill/toxic. Patient has good eye contact. Patient is cooperative. VITALS: All vitals were reviewed and the pulse ox is 91%, which is low according to my interpretation HEENT: Normocephalic, atraumatic and nontender. Pupils are equal and reactive. Oral mucosa is moist. NECK: Supple, nontender, no meningismus, no JVD. There is no thyromegaly and no lymphadenopathy. CHEST: Nontender on palpation no deformity and no crepitus. CARDIOVASCULAR: Heart regular rhythm, no murmur or gallop rub or extra beats. LUNGS: Clear to auscultation bilaterally with symmetrical chest rise. No laboring tachypnea or wheezing. No intercostal subcostal retraction. No rales and no rhonchi. ABDOMEN: 2+ distended, firm, RUQ/RLQ tender with guarding, no rebound tenderness. There are no abnormal masses palpated. No pulsatile masses or bruits. Active and normal bowel sounds. EXTREMITIES: Normal inspection and palpation. No edema. No cyanosis. Patient is able to move all 4 extremities well SKIN: Warm and dry, no rashes noted. MUSCULOSKELETAL: No lumbar or midline bony tenderness. There is no CVA tenderness. No paraspinal muscle spasm or tenderness. NEURO: Cranial nerves II through XII grossly intact. There are no focal neurologic deficits noted. GCS is 15 PSYCHIATRIC: Patient is in normal mood and affect, cooperative. LYMPHATICS: No major lymphadenopathy noted. Course Quality Measures none Orders Category Date Time Status Bedside Blood Glucose Q2HX3 Care 02/17/25 21:17 Active Public Relations Director STAT Care 02/17/25 19:17 Active EKG (ED ONLY) *Do not use* NOW Care 02/17/25 19:17 Completed Falcon [Urinary Catheter] QS Care 02/17/25 22:35 Active Insert IV STAT Care 02/17/25 19:17 Active NPO STAT Care 02/17/25 19:[address] abdomen pelvis wo con Stat Exams 02/17/25 19:21 Completed EKG (ED Only) Stat Exams 02/17/25 19:17 Draft Amylase Stat Lab 02/17/25 20:05 Completed BMP [Basic Metabolic Panel] Stat Lab 02/17/25 22:48 Completed CBC Stat Lab 02/17/25 22:48 Completed Comprehensive Metabolic Panel Stat Lab 02/17/25 20:05 Completed Lactate (Lactic Acid) Stat Lab 02/17/25 23:34 Completed Lipase Stat Lab 02/17/25 20:05 Completed Magnesium Stat Lab 02/17/25 20:05 Completed Prothrombin Time with INR Stat Lab 02/17/25 20:05 Completed Urinalysis, C/S if Indicated Stat Lab 02/17/25 23:28 Completed ALBUTEROL RT 3ml [Proventil Rt 3ml] Med 02/17/25 22:33 Discontinued 5 mg INH X1 ONE Calcium Chloride 10% Abboject Med 02/17/25 21:16 Discontinued 10 ml IV X1 ONE Dextrose 10%-Water 1000 ml [D10w 1000 ml] 1,000 ml Med 02/17/25 21:30 Discontinued IV 100 mls/hr Dextrose 50% Syr [D50w Syringe Abboject] Med 02/17/25 21:16 Discontinued 100 ml IV X1 ONE Dextrose 50% Syr [D50w Syringe Abboject] Med 02/17/25 21:16 Active 25 ml IV Q15MIN PRN Dextrose 50% Syr [D50w Syringe Abboject] Med 02/17/25 21:16 Active 50 ml IV Q15MIN PRN Dextrose 50% Syr [D50w Syringe Abboject] Med 02/17/25 21:45 Discontinued 50 ml IVP X1 ONE Furosemide [Lasix Inj] Med 02/17/25 21:16 Discontinued 40 mg IVP X1 ONE Glucagon Inj Med 02/17/25 21:16 Active 1 mg IM Q15MIN PRN Insulin Regular Med 02/17/25 21:16 Discontinued 10 unit IV X1 ONE Morphine* Inj Med 02/17/25 19:18 Discontinued 4 mg IVP X1 ONE Ondansetron Inj [Zofran Inj] Med 02/17/25 19:17 Active 4 mg IVP Q1H PRN Pantoprazole Inj [Protonix Inj] Med 02/17/25 19:17 Discontinued 40 mg IVP X1 ONE Promethazine Inj [Phenergan Inj] 6.25 mg Med 02/17/25 19:17 Discontinued Sodium Chloride 0.9% [Ns] 50 ml IV X1 Sod Polystyrene Sulfon Susp [Kayexalate Susp] Med 02/17/25 21:48 Discontinued 30 gm PO X1 ONE Sod Polystyrene Sulfon Susp [Kayexalate Susp] Med 02/17/25 21:16 Discontinued 60 gm PO X1 ONE Sodium Bicarb 8.4% SYR Med 02/17/25 21:16 Discontinued 100 ml IV X1 ONE Sodium Chloride 0.9% 250 ml [Ns] 250 ml Med 02/17/25 19:17 Discontinued IV 250 mls/hr Oxygen Delivery STAT RT 02/17/25 19:17 Active Vital Signs Vital signs: Vital Signs Pulse Rate 96 02/17/25 18:27 Respiratory Rate 18 02/17/25 18:27 Blood Pressure 128/87 H 02/17/25 18:27 Pulse Oximetry (%) 92 L 02/17/25 18:27 Oxygen Delivery Method Room Air 02/17/25 18:27 Abdominal Pain MDM MDM Narrative MDM Narrative:: Scribe Attestation: Hermelinda Lackey am scribing for and in the presence of Dr. Arcos. Provider Notation: Although this document has been carefully reviewed, there may still be some phonetic and other typographical errors. These errors are purely grammatical due to imperfections in the software program and should not be construed in any way to compromise the substance of the patient's medical care during this visit. Patient reports having been diagnosed with Giardia intestinal infection 3 weeks [employer] on several courses of antiparasitics and has a steady decline in course. Reports progressive weakness and having to of been hospitalized due to fecal impaction secondary to anti-diarrheal agents. Please see PE findings. Laboratory markers, including CBC and serum chemistries, demonstrated elevated WBC's of 11.8 Serum chemistries notable for acute on chronic renal insufficiency with elevated Creatine of 2.8 and BUN of 53. Potassium markedly elevated at 7.1 and CO2 down to 13. GFR at 18 (significant reduction), Magnesium elevated to 3.2. UA with no infection. Patient underwent CT scan which interval presence of mid to moderate ascites and mass measuring 1.4 cm at posterior margin of urinary bladder, which will require further evaluation, as compared to January 20 scan. Patient was placed on registered nurse cardiac telemetry, IV established, and treated per Hyperkalemia protocol. Final diagnoses include Acute on Chronic Renal Insufficiency/Renal Failure, Cirrhosis, and Urinary Bladder Mass. Patient data External records reviewed:: [facility] [place] previous records (Reviewed prior ED records from 01/07/25. Patient was seen for Constipation.) and EMS form Clinical information provided by:: patient and EMS Social determinants that could affect healthcare access:: none Patient has the following chronic illnesses:: Hypertension, Giardia (01/20)x, Arthritis, Gout, Hypothyroidism How is presenting disease/condition affected by chronic disease/condition?: exacerbated by Evaluation data The following diagnostics were reviewed and interpreted by me:: lab results, radiology exam(s) and EKG tracing(s) (EKG at 19:31 shows normal sinus rhythm at 86, leftward axis, no ectopy, no signs of acute ischemia, per my interpretation.) Lab and/or radiology exams considered but not ordered:: None Interpretation Summary: RADIOLOGY Abdomen/Pelvis CT: Findings: Minimal right pleural fluid Cirrhosis, liver nodular in contour Mild to moderate ascites Spleen no splenic lesion No pancreatic or adrenal mass Atrophic right kidney 2 mm right renal calculus, no hydronephrosis or ureteral calculi Large amounts of stool in the right colon Normal appendix 14 mm nodule at the posterior margin of the urinary bladder IMPRESSION: Cirrhosis Mild to moderate ascites No obstruction Normal appendix 2 mm nonobstructing right renal calculus 14 mm nodule at the posterior margin of the urinary bladder, recommend urinary bladder sonography, pelvic sonography follow-up Medications / Prescriptions Medications or Prescriptions considered but not ordered:: None Medication administrations:: Medication Administration History Acetaminophen (Acetaminophen 325 Mg Tablet) 650 mg PO Q6H PRN PRN Reason: Fever >100.4 or pain 1-3 Stop: 03/19/25 23:40 Hydrocodone Bitart/Acetaminophen (Hydrocodone/Apap 5/325 Tablet) 1 tab PO Q4HR PRN PRN Reason: PAIN SCALE 4-6 (Moderate Stop: 02/22/25 23:40 Amlodipine Besylate (Amlodipine Besylate 5 Mg Tablet) 5 mg PO QDAY RAMON Stop: 03/20/25 08:59 Dextrose (Dextrose 50%-Water Inj 50 Ml Syringe) 25 ml IV Q15MIN PRN PRN Reason: BG 50-70 responsive npo pt Stop: 03/19/25 21:15 Dextrose (Dextrose 50%-Water Inj 50 Ml Syringe) 50 ml IV Q15MIN PRN PRN Reason: BG <50 OR BG <70 & pt unresponsive Stop: 03/19/25 21:15 Docusate Sodium (Docusate Sod 100 Mg Capsule) 100 mg PO QDAY [facility]; Protocol Stop: 03/20/25 08:59 Glucagon (Glucagon Inj 1 Mg Vial) 1 mg IM Q15MIN PRN PRN Reason: BG <70, and no IV access Heparin Sodium (Porcine) (Heparin Sod Inj 5000 Unit/Ml Vial) 5,000 unit SC Q12HR [facility] Stop: 03/04/25 08:59 Ondansetron HCl (Ondansetron Inj 2 Mg/Ml Inj 2 Ml) 4 mg IVP Q1H PRN PRN Reason: PERSISTENT NAUSEA OR VOMITING Last Admin: 02/17/25 20:12 Dose: 4 mg Documented By: WM Ondansetron HCl (Ondansetron Inj 2 Mg/Ml Inj 2 Ml) 4 mg IVP Q6H PRN; Protocol PRN Reason: NAUSEA OR VOMITING Stop: 03/19/25 23:40 Pantoprazole Sodium (Pantoprazole Inj 40 Mg Vial) 40 mg IVP QDAY [facility] Stop: 03/20/25 08:59 Discontinued Medications Albuterol (Albuterol Rt 2.5 Mg/3 Ml Nebu) 5 mg INH X1 ONE Stop: 02/17/25 22:34 Last Admin: 02/17/25 23:11 Dose: 5 mg Documented By: AVINASH Calcium Chloride (Calcium Chloride 10% Inj 10 Ml Syrg) 10 ml IV X1 ONE Stop: 02/17/25 21:17 Last Admin: 02/17/25 21:59 Dose: 10 ml Documented By: WM Dextrose (Dextrose 50%-Water Inj 50 Ml Syringe) 100 ml IV X1 ONE Stop: 02/17/25 21:17 Last Admin: 02/17/25 22:25 Dose: Not Given Documented By: MAHESH Non-Admin Reason: Discontinued Dextrose (Dextrose 50%-Water Inj 50 Ml Syringe) 50 ml IVP X1 ONE Stop: 02/17/25 21:46 Last Admin: 02/17/25 21:59 Dose: 50 ml Documented By: WM Furosemide (Furosemide Inj 10 Mg/Ml Vial 2 Ml) 40 mg IVP X1 ONE Stop: 02/17/25 21:17 Last Admin: 02/17/25 22:21 Dose: 40 mg Documented By: WM Sodium Chloride (Ns) 250 mls @ 250 mls/hr IV .Q1H ONE Stop: 02/17/25 20:16 Last Admin: 02/17/25 20:17 Dose: 250 mls/hr Documented By: WM Promethazine HCl 6.25 mg/ (Sodium Chloride) 50.25 mls @ 2.5 mls/min IV X1 ONE Stop: 02/17/25 19:37 Last Admin: 02/17/25 23:08 Dose: Not Given Documented By: WM Non-Admin Reason: Medication Not Available Dextrose (D10w 1000 Ml) 1,000 mls @ 100 mls/hr IV .Q10H RAMON Stop: 02/18/25 07:29 Sodium Chloride (Ns) 1,000 mls @ 999 mls/hr IV .Q1H1M ONE Stop: 02/18/25 00:47 Last Admin: 02/18/25 00:21 Dose: 999 mls/hr Documented By: Infusion: 02/18/25 00:21 Dose: Infused Documented By: Admin: 02/18/25 00:19 Dose: 999 mls/hr Documented By: WM Sodium Chloride (Ns) 1,000 mls @ 999 mls/hr IV .Q1H1M ONE Stop: 02/18/25 00:50 Insulin Human Regular (Insulin Hum Regular 1 Unit/0.01 Ml (Per Unit)) 10 unit IV X1 ONE Stop: 02/17/25 21:17 Last Admin: 02/17/25 22:27 Dose: 10 unit Documented By: WM Co-signed By: Morphine Sulfate (Morphine Sulf Inj 4 Mg/Ml Vial) 4 mg IVP X1 ONE Stop: 02/17/25 19:19 Last Admin: 02/17/25 20:17 Dose: 4 mg Documented By: WM Pantoprazole Sodium (Pantoprazole Inj 40 Mg Vial) 40 mg IVP X1 ONE Stop: 02/17/25 19:18 Last Admin: 02/17/25 20:13 Dose: 40 mg Documented By: WM Sodium Bicarbonate (Sodium Bicarb Inj 8.4% Syr 50 Ml Syringe) 100 ml IV X1 ONE Stop: 02/17/25 21:17 Last Admin: 02/17/25 22:16 Dose: 100 ml Documented By: WM Sodium Polystyrene Sulfonate (Sod Polystyrene Sulfon Susp 15 Gm/60 Ml Btl) 60 gm PO X1 ONE Stop: 02/17/25 21:17 Last Admin: 02/17/25 22:24 Dose: Not Given Documented By: MAHESH Non-Admin Reason: Discontinued Sodium Polystyrene Sulfonate (Sod Polystyrene Sulfon Susp 15 Gm/60 Ml Btl) 30 gm PO X1 ONE Stop: 02/17/25 21:49 Last Admin: 02/17/25 22:16 Dose: 30 gm Documented By: WM See above if any Consultations Consultation(s) initiated? (list below): Yes Consultation #1 (Physician, Specialty, Details): Discussed with resident physician for admission. Reviewed the patient?s HPI, PMHx, lab and/or radiology results. Discussed treatment plan. Will consult an admission to the hospitalist. Time: 22:25 Diagnosis Differential diagnosis abdominal pain: abdominal pain, constipation (Chronic diarrhea) and gastroenteritis Most likely diagnosis given after review of the tests above:: Acute on Chronic Renal Insufficiency/Renal Failure, Cirrhosis, and Urinary Bladder Mass Admission Indicated Admission indicated?: indicated Explain why admission is indicated or not indicated:: Acute on Chronic Renal Insufficiency/Renal Failure, Cirrhosis, and Urinary Bladder Mass Admission Request Was there a request for admission?: Yes Admission Attestation Admission request attestation: Discussed case with [] from Hospitalist service regarding admission. Discussed patients ED course, exam findings, labs, and radiology results. The Hospitalist [agrees,declines] to accept the patient for admission. Disposition Plan Disposition Plan: Admit Critical Care Time Critical Care Time Critical Care Time: Yes Total Critical Care Time (min.): 45 Attestation: The high probability of sudden, clinically significant deterioration in the patient?s condition required the highest level of my preparedness to intervene urgently. The services I provided to this patient were to treat and/or prevent clinically significant deterioration. Services included the following: chart data review, reviewing nursing notes and/or old charts, documentation time, home energy consultant collaboration regarding findings and treatment options, medication orders and management, direct patient care, vital sign assessments and ordering, interpreting and reviewing diagnostic studies and lab tests. Aggregate critical care time includes only time during which I was engaged in work directly related to the patient?s care, as described above, whether at bedside or elsewhere in the Emergency Department. It did not include time spent performing other reported procedures or the services of residents, students, nurses or physician assistants. Discharge Plan Plan Patient Disposition: Admit Acute Care w/in Hospital Problem List Clinical Impression: Acute on chronic renal insufficiency, Renal failure, Cirrhosis, Mass of urinary bladder
--- NOTE | 2025-02-17 19:03 | PC.NURSE ---
PT BIBA for c/o abdominal pain feeling bloated. PT stated she was admitted to the hospital a month ago for bloody stools secondary to giardia. Pt concerned about living situation since her cannot care for her and she has become more weak. Pt is a&o x4, feeling nauseated, last BM today but was very small. VSS. Call light within reach, bed in lowest position awaiting doctor to evaluate.
--- NOTE | 2025-02-17 19:17 | EKG_ITS ---
[facility] Test Date: 2025-02-17 Pat Name: KOMAL GARCIA Department: Room: - Gender: Female Seo Associate: : 1955 Requested By: Juno Giang Order Number: [id number] Reading MD: Juno Giang Measurements Intervals [place] Rate: 86 P: 52 TX: 196 QRS: -11 QRSD: 109 T: 85 QT: 357 QTc: 427 Interpretive Statements SINUS RHYTHM NONSPECIFIC T-WAVE ABNORMALITY Compared to ECG 12/25/2024 15:27:58 No significant changes /store/S0/[id number]/ecg/[id number].pdf
--- NOTE | 2025-02-17 19:21 | XR_ITS ---
Examination: CT abdomen and pelvis without contrast. Coronal 3-D reconstructions. Sagittal 2-D reconstructions. Date and time of exam: February 17, 2025, 1942 hours INDICATIONS: Abdominal distention today CTDI: vol (mGy): 17.6 DLP: (mGycm): 1066 Technique: Axial images of the abdomen have been obtained, 3 mm slice thickness Intravenous contrast material has not been administered. Low dose protocols were performed. One or more of the following dose reduction techniques were used; automated exposure control, adjustment of the mA and/or KV according to patient size, use of iterative reconstruction technique. Findings: Minimal right pleural fluid Cirrhosis, liver nodular in contour Mild to moderate ascites Spleen no splenic lesion No pancreatic or adrenal mass Atrophic right kidney 2 mm right renal calculus, no hydronephrosis or ureteral calculi Large amounts of stool in the right colon Normal appendix 14 mm nodule at the posterior margin of the urinary bladder IMPRESSION: Cirrhosis Mild to moderate ascites No obstruction Normal appendix 2 mm nonobstructing right renal calculus 14 mm nodule at the posterior margin of the urinary bladder, recommend urinary bladder sonography, pelvic sonography follow-up
[2025-02-17] MEDS: ONDANSETRON INJ 2 MG/ML INJ 2 ML 4 MG IVP (20:12)
[2025-02-17] MEDS: MORPHINE SULF INJ 4 MG/ML VIAL IVP (20:17)
[2025-02-17] MEDS: SODIUM CHLORIDE 0.9% 250 ML 250 ML IV (20:17)
[2025-02-17 20:37] LABS: INR 1.2 (0.9-1.3); Prothrombin Time 12.4 Seconds (9.0-12.2)
[2025-02-17 20:40] LABS: Alanine Aminotransferase 30 U/L (10-49); Albumin, Serum 3.4 gm/dL (3.4-4.8); Albumin/Globulin Ratio 1.3 (1.2-2.2); Alkaline Phosphatase 404 U/L (46-116); Amylase 78 U/L (30-118); Anion Gap 10 (7-16); Aspartate Amino Transferase 75 U/L (0-34); BUN/Creatinine Ratio 19 Ratio (12-20); Bilirubin,Total 0.5 mg/dL (0.3-1.2); Blood Urea Nitrogen 53 mg/dL (9-23); Calcium 9.0 mg/dL (8.3-10.6); Calcium (Corrected) 9.5 mg/dL (8.5-10.1); Carbon Dioxide 16.3 mMol/L (20.0-31.0); Chloride 108 mMol/L (98-107); Creatinine (Component) 2.8 mg/dL (0.6-1.3); Estimated Creatinine Clearance 24.2 mL/min (>60); Globulin 2.7 gm/dL (2.3-3.5); Glucose 106 mg/dL (74-106); Lipase 46 U/L (12-53); Magnesium 3.2 mg/dL (1.6-2.6); Osmolality,Calculated 282 (275-295); Sodium 134 mMol/L (136-145); Total Protein 6.1 gm/dL (5.7-8.2); eGFR 18 See Note
[2025-02-17 20:43] LABS: Potassium 7.1 mMol/L (3.4-5.1)
[2025-02-17] MEDS: DEXTROSE 50%-WATER INJ 50 ML SYRINGE IVP (21:59)
[2025-02-17] MEDS: CALCIUM CHLORIDE 10% INJ 10 ML SYRG IV (21:59)
[2025-02-17] MEDS: SOD POLYSTYRENE SULFON SUSP 15 GM/60 ML BTL 30 GM PO (22:16)
[2025-02-17] MEDS: Sodium Bicarb Inj 8.4% SYR 50 ML SYRINGE 100 ML IV (22:16)
[2025-02-17] MEDS: FUROSEMIDE INJ 10 MG/ML VIAL 2 ML 40 MG IVP (22:21)
[2025-02-17] MEDS: INSULIN HUM REGULAR 1 UNIT/0.01 ML (PER UNIT) 10 UNIT IV (22:27)
[2025-02-17 22:58] LABS: Basophils # (Auto) 0.0 Thou/mm3 (0.0-0.2); Basophils % (Auto) 0 % (0-2.5); Eosinophils # (Auto) 0.0 Thou/mm3 (0.0-0.5); Eosinophils % (Auto) 0 % (0-10); Hematocrit 46.7 % (36.0-46.0); Hemoglobin 14.8 g/dL (12.0-16.0); Immature Granulocytes Auto 0.06 Thou/mm3 (0.00-0.00); Lymphocytes # (Auto) 1.4 Thou/mm3 (1.0-4.8); Lymphocytes % (Auto) 12 % (10-50); Mean Corpuscular HGB Conc 31.7 g/dl (31.0-37.0); Mean Corpuscular Hemoglobin 29.7 pg (25.0-35.0); Mean Corpuscular Volume 94 fL (80-100); Monocytes # (Auto) 0.3 Thou/mm3 (0.0-0.8); Monocytes % (Auto) 3 % (0-12); Neutrophils # (Auto) 10.0 Thou/mm3 (1.8-7.7); Neutrophils % (Auto) 85 % (37-80); Nucleated Red Blood Cell # 0.00 Thou/mm3 (0.00-0.00); Nucleated Red Blood Cell % 0 /100 WBC (0); Platelet Count 216 Thou/mm3 (140-440); RDW Standard Deviation 56.5 fL (36.4-46.3); Red Blood Count 4.99 Miln/mm3 (4.00-5.20); White Blood Count 11.8 Thou/mm3 (3.6-11.0)
[2025-02-17 23:11] LABS: Anion Gap 9 (7-16); BUN/Creatinine Ratio 24 Ratio (12-20); Blood Urea Nitrogen 66 mg/dL (9-23); Calcium 9.4 mg/dL (8.3-10.6); Carbon Dioxide 21.5 mMol/L (20.0-31.0); Chloride 109 mMol/L (98-107); Creatinine (Component) 2.8 mg/dL (0.6-1.3); Estimated Creatinine Clearance 24.2 mL/min (>60); Glucose 135 mg/dL (74-106); Osmolality,Calculated 298 (275-295); Potassium 5.7 mMol/L (3.4-5.1); Sodium 139 mMol/L (136-145); eGFR 18 See Note
[2025-02-17] MEDS: ALBUTEROL RT 2.5 MG/3 ML NEBU 5 MG INH (23:11)
[2025-02-17 23:49] LABS: Lactate (Lactic Acid) 1.9 mMol/L (0.4-2.0)
[2025-02-17 23:49] LABS: Collection Type, Urine Clean Catch
--- NOTE | 2025-02-17 23:55 | ESHP_ITS ---
<Statement entered by Karla Cunningham MD - 02/18/25 01:38> Note reviewed, I agree with most of its contents and agree with the patient's care as documented by Dr. Bhatt. Patient is 70yr female with PMH of hypertension, GA, liver mass, hypothyroidism, depression, giardia infection, CKD, liver mass, pulmonary nodules presenting to ED due to weakness. Her called EMS after noticing that she did not seem at her baseline with difficulty in arousal. At bedside she is AOx3. Endorses progressive weakness and difficulty in her ADLS. Needing more assistance from with using the toilet and bathing. Endorses constipation and decreased appetitie. CMP showed hyperkalemia 7.1. No EKG changes. Improved to 5.7 after cocktail. Cr 2.8, GFR 18. CT A/p showed large amount of stool in the colon, 14mm nodule posterior margin of the urinary bladder. Admitted for hyperkalemia and weakness. Nephrology was consulted. Ordered water enema for constipation. PT evaluation as well for her weakness. The patient's management plan was discussed with my attending physician Dr. Toledo. Karla Cunningham, PGY-2 Documentation for date of: 02/17/25 HPI History of Present Illness History of present illness: 70 year old female with pmhx HTN, giardia (01/20), arthiritis, gout, hypothyroid, chronic back pain who presenting with diffuse generalized weakness following a giardia infection 3 weeks ago, patient found to have K 7.1 admitted for hyperkalemia. ED Course Summary Vitals: BP 128/87 HR 96 RR18 T 97.5F O2 sat 92% RA Labs: WBC 11.8 Coag (PT 12.4 INR 1.2) Na 134 K 7.1 HCO3 16.3 BUN 53 Cr 2.8 Mg 3.2 AST 75 ALP 404. UA unremarkable Imaging: EKG sinus rhythm HR 86 QTc 427. CTAP cirrhosis, mild to moderate ascites, no obstruction, normal appendix, 2mm nonobstructing right renal calculus, 14 mm noudle at the posterior margin of the urinary bladder, recommend urinary bladder sonography Treatment: albuterol 5mg, insulin regular 10unit, furosemide 40mg IVP, sodium polystyrene sulfonate 30mg, sodium bicarbonate 100ml, dextrose 50mL, Calcium chloride 10ml, morphine sulfate 4mg, NaCl 250ml, Protonix 40mg, zofran 4mg IVP Consults and why: Nephrology (Katty) consulted for K 7.1 Upon initial examination patient confirms narrative provided by ED physician. She is AOx4, confirms that she had difficulty being aroused from sleep. States she is unable to ambulate as well as she used to. Endorses constipation and abdominal pain for multiple days. She denies fevers, chills, vomiting. Her legs are swollen but it appears to be gravity dependent/positional from immobility. 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 Exam Vital Signs Temp Pulse Resp BP Pulse Ox O2 Del Method O2 Flow Rate 97.6 F 98 19 163/76 H 100 Nasal Cannula 2 02/17/25 21:11 02/17/25 23:12 02/17/25 23:12 02/17/25 22:21 02/17/25 23:12 02/17/25 21:29 02/17/25 23:12 Narrative Exam GENERAL APPEARANCE: AOx4. NAD, bed bound, obese, no cyanosis, pallor, or diaphoresis. HEENT: Normocephalic atraumatic, no facial trauma, neck is supple. Lids/conjunctiva normal. Mucous membranes moist, nares normal, lips/teeth normal uvula midline without oral pharyngeal erythema, exudate or swelling TMs normal bilaterally. No lymphangitis/lymphedema. CARDIAC: Regular rate and rhythm, S1+S2 heard. No murmurs, rubs, or gallops noted RESPIRATORY: respiratory effort normal, speaks in full sentences, no tripod position, no accessory muscle use. Lungs clear to auscultation without rhonchi, wheezes, rales ABDOMINAL: NBS. Soft, ND, diffuse abdominal tenderness. No evidence of fluid wave. No pulsatile masses on exam, rebound tenderness, Cade sign or pain over Mcburney's point. MUSCLES/EXTREMITIES: No abnormal range of motion. +2 pedal edema up to upper calf DERM: Warm, pink and dry. No rashes, dermatoses, petechiae or lesions. NEUROLOGICAL: Speech is clear and appropriate. Normal level of consciousness. Gait and coordination are normal. 5/5 strength in all extremities. PSYCH: Normal mood and affect. Judgement/competence is appropriate RENAL: (-) CVA tenderness Results: Labs 02/18/25 04:20 02/18/25 04:20 Labs: Short CBC 02/17/25 Range/Units 22:48 WBC 11.8 H (3.6-11.0) Thou/mm3 Hgb 14.8 (12.0-16.0) g/dL Hct 46.7 H (36.0-46.0) % Plt Count 216 D (140-440) Thou/mm3 BMP 02/17/25 02/17/25 20:05 22:48 Sodium 134 L 139 Potassium 7.1 H* 5.7 H D Chloride 108 H 109 H Carbon Dioxide 16.3 L 21.5 BUN 53 H 66 H Creatinine 2.8 H 2.8 H Glucose 106 135 H Calcium 9.0 9.4 Liver Function 02/17/25 Range/Units 20:05 Total Bilirubin 0.5 (0.3-1.2) mg/dL AST 75 H (0-34) U/L ALT 30 (10-49) U/L Alkaline Phosphatase 404 H (46-116) U/L Albumin 3.4 (3.4-4.8) gm/dL Quality Measures Quality Measures VTE prophylaxis Advance care planning discussed with:: patient Medications Home Medications and Allergies Home Medications ?Medication ?Instructions ?Recorded ?Confirmed ?Type acetaminophen 300 mg-codeine 60 mg 1 tab PO Q6H PRN pa in (scale score 12/04/24 02/18/25 History tablet 7-10) allopurinol 100 mg tablet 100 mg PO DAILY 12/04/24 History amitriptyline 25 mg tablet 25 mg PO DAILY 12/04/24 History amlodipine 5 mg tablet 5 mg PO DAILY 12/04/2402/18 History levothyroxine 137 mcg tablet 137 mcg PO DAILY 12/04/24 02/18/25 History lisinopril 20 mg tablet 20 mg PO DAILY 12/04/2401/28 History triamterene 75 1 tab PO DAILY 12/04/2401/28 History mg-hydrochlorothiazide 50 mg tablet Allergies Allergy/AdvReac Type Severity Reaction Status Date / Time No Known Allergies Allergy Verified 12/07/24 14:34 Visit Medications Acetaminophen (Acetaminophen 325 Mg Tablet) 650 mg PO Q6H PRN PRN Reason: Fever >100.4 or pain 1-3 Stop: 03/19/25 23:40 Hydrocodone Bitart/Acetaminophen (Hydrocodone/Apap 5/325 Tablet) 1 tab PO Q4HR PRN PRN Reason: PAIN SCALE 4-6 (Moderate Stop: 02/22/25 23:40 Amlodipine Besylate (Amlodipine Besylate 5 Mg Tablet) 5 mg PO QDAY [facility] [place] Stop: 03/20/25 08:59 Dextrose (Dextrose 50%-Water Inj 50 Ml Syringe) 25 ml IV Q15MIN PRN PRN Reason: BG 50-70 responsive npo pt Stop: 03/19/25 21:15 Dextrose (Dextrose 50%-Water Inj 50 Ml Syringe) 50 ml IV Q15MIN PRN PRN Reason: BG <50 OR BG <70 & pt unresponsive Stop: 03/19/25 21:15 Docusate Sodium (Docusate Sod 100 Mg Capsule) 100 mg PO QDAY [facility] [place]; Protocol Stop: 03/20/25 08:59 Glucagon (Glucagon Inj 1 Mg Vial) 1 mg IM Q15MIN PRN PRN Reason: BG <70, and no IV access Heparin Sodium (Porcine) (Heparin Sod Inj 5000 Unit/Ml Vial) 5,000 unit SC Q12HR RAMON Stop: 03/04/25 08:59 Dextrose (D10w 1000 Ml) 1,000 mls @ 100 mls/hr IV .Q10H RAMON Stop: 02/18/25 07:29 Sodium Chloride (Ns) 1,000 mls @ 999 mls/hr IV .Q1H1M ONE Stop: 02/18/25 00:47 Sodium Chloride (Ns) 1,000 mls @ 999 mls/hr IV .Q1H1M ONE Stop: 02/18/25 00:50 Ondansetron HCl (Ondansetron Inj 2 Mg/Ml Inj 2 Ml) 4 mg IVP Q1H PRN PRN Reason: PERSISTENT NAUSEA OR VOMITING Last Admin: 02/17/25 20:12 Dose: 4 mg Ondansetron HCl (Ondansetron Inj 2 Mg/Ml Inj 2 Ml) 4 mg IVP Q6H PRN; Protocol PRN Reason: NAUSEA OR VOMITING Stop: 03/19/25 23:40 Pantoprazole Sodium (Pantoprazole Inj 40 Mg Vial) 40 mg IVP QDAY RAMON Stop: 03/20/25 08:59 Discontinued Medications Albuterol (Albuterol Rt 2.5 Mg/3 Ml Nebu) 5 mg INH X1 ONE Stop: 02/17/25 22:34 Last Admin: 02/17/25 23:11 Dose: 5 mg Calcium Chloride (Calcium Chloride 10% Inj 10 Ml Syrg) 10 ml IV X1 ONE Stop: 02/17/25 21:17 Last Admin: 02/17/25 21:59 Dose: 10 ml Dextrose (Dextrose 50%-Water Inj 50 Ml Syringe) 100 ml IV X1 ONE Stop: 02/17/25 21:17 Last Admin: 02/17/25 22:25 Dose: Not Given Dextrose (Dextrose 50%-Water Inj 50 Ml Syringe) 50 ml IVP X1 ONE Stop: 02/17/25 21:46 Last Admin: 02/17/25 21:59 Dose: 50 ml Furosemide (Furosemide Inj 10 Mg/Ml Vial 2 Ml) 40 mg IVP X1 ONE Stop: 02/17/25 21:17 Last Admin: 02/17/25 22:21 Dose: 40 mg Sodium Chloride (Ns) 250 mls @ 250 mls/hr IV .Q1H ONE Stop: 02/17/25 20:16 Last Admin: 02/17/25 20:17 Dose: 250 mls/hr Promethazine HCl 6.25 mg/ (Sodium Chloride) 50.25 mls @ 2.5 mls/min IV X1 ONE Stop: 02/17/25 19:37 Last Admin: 02/17/25 23:08 Dose: Not Given Insulin Human Regular (Insulin Hum Regular 1 Unit/0.01 Ml (Per Unit)) 10 unit IV X1 ONE Stop: 02/17/25 21:17 Last Admin: 02/17/25 22:27 Dose: 10 unit Morphine Sulfate (Morphine Sulf Inj 4 Mg/Ml Vial) 4 mg IVP X1 ONE Stop: 02/17/25 19:19 Last Admin: 02/17/25 20:17 Dose: 4 mg Pantoprazole Sodium (Pantoprazole Inj 40 Mg Vial) 40 mg IVP X1 ONE Stop: 02/17/25 19:18 Last Admin: 02/17/25 20:13 Dose: 40 mg Sodium Bicarbonate (Sodium Bicarb Inj 8.4% Syr 50 Ml Syringe) 100 ml IV X1 ONE Stop: 02/17/25 21:17 Last Admin: 02/17/25 22:16 Dose: 100 ml Sodium Polystyrene Sulfonate (Sod Polystyrene Sulfon Susp 15 Gm/60 Ml Btl) 60 gm PO X1 ONE Stop: 02/17/25 21:17 Last Admin: 02/17/25 22:24 Dose: Not Given Sodium Polystyrene Sulfonate (Sod Polystyrene Sulfon Susp 15 Gm/60 Ml Btl) 30 gm PO X1 ONE Stop: 02/17/25 21:49 Last Admin: 02/17/25 22:16 Dose: 30 gm Assessment & Plan Plan 70 year old female with pmhx HTN, giardia (01/20), arthiritis, gout, hypothyroid, chronic back pain who presenting with diffuse generalized weakness following a giardia infection 3 weeks ago, patient found to have K 7.1 admitted for hyperkalemia. #KADI on CKD #Severe hyperkalemia #Generalized weakness Patient reports generalized weakness following 3 weeks of giardia treatment. Is now constipated. K on admission is 7.1 with K cocktail downtrended to 5.7. EKG was unremarkable. Patient denies chest pain and palpitations. Incidental findings on posterior margin of the urinary bladder. Renal panel BUN 53 Cr 2.8, given IVF in ED. Repeat BMP showed no improvement. Plan: -Dr. Alexander (nephro) consulted -Dietitian referral consulted -PT referral consulted -2L NS bolus -IVF NS -PT referral:___ #Abdominal Pain most likely 2/2 #Constipation Patient has not had BM for 3 days, reports diffuse abdominal tenderness, mostly on the right side. CTAP showed large amounts of stool in the right colon. Takes multiple laxatives at home miralax, docusate, lactulose bid. Plan: -Water enema -Colace -Encourage ambulation with PT #Transaminitis #Hx of mild fatty liver disease ALP 404 AST 75, no history of drinking. CTAP shows cirrhosis, mild to moderate ascites. Possibly concerning for MYERS. Liver Bx from 12/04/2024 moderate macrovesicular and microvesicular steatosis with ballooning. Steatosis grade 1, 20%, lobular inflammation: grade 1, 2 foci/20x field, ballooning degeneration: grade 1, few; fibrosis: stage 2, perivenular + portal fibrosis. Most likely a component of physiological volume depletion in setting of poor PO intake. Plan: -CTM LFTs -Encourage improved diet -Giving narco 5 Q4hr PRN for back pain but ultimately want to limit opiates due to ongoing constipation. #Incidental findings #14 mm nodule at the posterior margin of the urinary bladder #2mm nonobstructing right renal calculus CTAP 2mm nonobstructing right renal calculus, 14 mm nodule at the posterior margin of the urinary bladder. -CVA tenderness. Plan: -Outpt recommend urinary bladder sonography -Outpt recommend pelvic sonography #Hx of HTN Plan: -Restarted home dose amlodipine 5mg PO QD -Holding lisinopril due to KADI #Hx of gout Home dose allopurinol 100mg PO QD - Holding due to poor renal function #Hx of hypothyroid Plan: -Resumed home dose of 125mcg PO ACBR tablet #Hx of chronic back pain Plan: -Narco 5mg Q4hr PRN Health Maintenance: Code status: Full DVT prophylaxis: Heparin subq GI prophylaxis: Protonix 40mg IVP QD Diet: Carb consistent [place]: Yes Lines: PIV Supplemental O2: NC Disposition: Tele for hypokalemia Patient seen and reviewed with attending Dr. Toledo. Note written by Andrey Bhatt MD PGY-1 Attending Provider Attestation/Addendum After examination of the patient and review of the clinical data I feel that this patient needs admission to the hospital for further treatment/evaluation. Plan of care discussed with patient and is in agreement. I Maci Toledo MD, attest that I was physically present for reyes portions of evaluation, and examined patient, labs and imagings and plan of care were discussed with IM residents team, and I agree with the findings and plans documented above.
[2025-02-18] VITALS (11 sets, daily range): BP systolic 100–125; BP diastolic 54–71; PULSE 82–97; RESP 16–23; TEMP 36.1–37.1; O2SAT 95–99; BMI 44.1
[2025-02-18] LABS: Bilirubin,Urine Negative (Negative); Blood,Urine Negative (Negative); Clarity,Urine Clear (Clear/Hazy); Color,Urine Colorless (Lt Yel-Yel); Culture Indicated,Urine Not Indicated; Glucose, Urine Negative (Negative); Ketones,Urine Negative (Negative); Leukocyte Esterase,Urine Negative (Negative); Nitrite,Urine Negative (Negative); PH,Urine 6.0 (5.0-7.0); Protein,Urine Negative (Neg - Trace); RBC,Urine 1 /hpf (0-3); Specific Gravity,Urine 1.008 (1.001-1.035); Squamous Epithelial Cell,Urine 2 /hpf (0-5); Urobilinogen,Urine Negative mg/dL (0.0-1.0); WBC,Urine 1 /hpf (0-5)
[2025-02-18] MEDS: SODIUM CHLORIDE 0.9% 1000 ML 1,000 ML 999 ML IV ×3 (00:19→02:14)
[2025-02-18] MEDS: SODIUM CHLORIDE 0.9% 1000 ML 1,000 ML 75 ML IV (03:14)
[2025-02-18] MEDS: ONDANSETRON INJ 2 MG/ML INJ 2 ML 4 MG IVP ×2 (04:53→11:27)
[2025-02-18] MEDS: LEVOTHYROXINE SODIUM 125 MCG TABLET PO (05:00)
[2025-02-18 05:48] LABS: Basophils # (Auto) 0.1 Thou/mm3 (0.0-0.2); Basophils % (Auto) 0 % (0-2.5); Eosinophils # (Auto) 0.0 Thou/mm3 (0.0-0.5); Eosinophils % (Auto) 0 % (0-10); Hematocrit 45.3 % (36.0-46.0); Hemoglobin 14.3 g/dL (12.0-16.0); Immature Granulocytes Auto 0.12 Thou/mm3 (0.00-0.00); Lymphocytes # (Auto) 1.7 Thou/mm3 (1.0-4.8); Lymphocytes % (Auto) 11 % (10-50); Mean Corpuscular HGB Conc 31.6 g/dl (31.0-37.0); Mean Corpuscular Hemoglobin 29.8 pg (25.0-35.0); Mean Corpuscular Volume 94 fL (80-100); Monocytes # (Auto) 1.0 Thou/mm3 (0.0-0.8); Monocytes % (Auto) 6 % (0-12); Neutrophils # (Auto) 12.5 Thou/mm3 (1.8-7.7); Neutrophils % (Auto) 82 % (37-80); Nucleated Red Blood Cell # 0.00 Thou/mm3 (0.00-0.00); Nucleated Red Blood Cell % 0 /100 WBC (0); Platelet Count 249 Thou/mm3 (140-440); RDW Standard Deviation 56.9 fL (36.4-46.3); Red Blood Count 4.80 Miln/mm3 (4.00-5.20); White Blood Count 15.4 Thou/mm3 (3.6-11.0)
[2025-02-18 06:31] LABS: Alanine Aminotransferase 25 U/L (10-49); Albumin, Serum 3.1 gm/dL (3.4-4.8); Albumin/Globulin Ratio 1.2 (1.2-2.2); Alkaline Phosphatase 351 U/L (46-116); Anion Gap 13 (7-16); Aspartate Amino Transferase 69 U/L (0-34); BUN/Creatinine Ratio 23 Ratio (12-20); Bilirubin,Total 0.5 mg/dL (0.3-1.2); Blood Urea Nitrogen 59 mg/dL (9-23); Calcium 8.4 mg/dL (8.3-10.6); Calcium (Corrected) 9.1 mg/dL (8.5-10.1); Carbon Dioxide 17.0 mMol/L (20.0-31.0); Chloride 110 mMol/L (98-107); Creatinine (Component) 2.6 mg/dL (0.6-1.3); Estimated Creatinine Clearance 26.9 mL/min (>60); Globulin 2.5 gm/dL (2.3-3.5); Glucose 106 mg/dL (74-106); Magnesium 2.8 mg/dL (1.6-2.6); Osmolality,Calculated 295 (275-295); Phosphorous 6.0 mg/dL (2.4-5.1); Potassium 5.5 mMol/L (3.4-5.1); Sodium 140 mMol/L (136-145); Total Protein 5.6 gm/dL (5.7-8.2); eGFR 19 See Note
[2025-02-18] MEDS: DEXTROSE 5%-WATER 1,000 ML 125 ML IV ×2 (07:43→15:40)
[2025-02-18] MEDS: HYDROcodone/APAP 5/325 TABLET 1 TAB PO ×2 (08:11→15:36)
[2025-02-18] MEDS: HEPARIN SOD INJ 5000 UNIT/ML VIAL SC ×2 (08:11→21:35)
[2025-02-18] MEDS: SOD POLYSTYRENE SULFON SUSP 15 GM/60 ML BTL 30 GM PO (08:11)
[2025-02-18] MEDS: DOCUSATE SOD 100 MG CAPSULE PO (08:11)
[2025-02-18] MEDS: SEVELAMER CARBONATE 800 MG TABLET PO (08:23)
[2025-02-18] MEDS: METOCLOPRAMIDE INJ 5 MG/ML VIAL 2 ML IVP (08:27)
--- NOTE | 2025-02-18 10:32 | XR_ITS ---
EXAMINATION: US renal BI with additional abdominal views HISTORY: CKD COMPARISON: 01/07/2025, 02/17/2025, CT abdomen pelvis. 12/07/2024, CT liver biopsy. 12/05/2024, MR liver. FINDINGS: Diminutive bilateral kidneys, right smaller than left. Right kidney measures up to 6.9 cm. The kidney measures up to 8.5 cm. No hydronephrosis. There is bilateral cortical thinning. No obstructive nephrolith is identified. Heterogeneous liver with heterogeneously hypoechoic lesions measuring up to 7.0 cm. Moderate ascites. Cirrhotic morphology to the liver. Bladder not visualized. IMPRESSION: 1. Diminutive bilateral kidneys with cortical thinning and increased echogenicity which can be seen with chronic medical renal disease. 2. Cirrhotic liver with heterogeneously hypoechoic lesions within the liver concerning for underlying masses. Please see 12/05/2024 CT liver biopsy and 12/05/2024 MRI abdomen pelvis. 3. Moderate ascites. 4. Nonvisualization of the urinary bladder.
--- NOTE | 2025-02-18 10:37 | ESCONSULT_ITS ---
HPI Data of Consult Consult date: 02/18/25 Requesting Physician: Maci Toledo MD Admitting Provider: Maci Toledo MD Attending Provider: Maci Toledo MD Primary Care Provider: Tona Metz MD Consult Narrative Reason for consult: Hyperkalemia, KADI History of present illness: Patient is a 70-year-old female past medical history significant for primary hypertension, obstructive sleep apnea, MASH with cirrhosis, depression, 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 Patient stated for the past 3 months she had progressively worsening generalized weakness. She was previously able to ambulate independently but this gradually decreased to using a walker and just prior to admission being completely dependent for transfers and mostly bedbound. She attributes this to her L4 compression fracture from June 2024. For the past week she has had poor oral intake due to pain and diarrhea. She follows up with her primary care doctor who recommended cortisone shots, however she has never had spinal orthopedic consultation. Patient also reports a 3-month history of watery diarrhea with more than 5 episodes per day. Denies any nausea/ vomiting. She was diagnosed with Giardia infection on 12/06/2024 and started on metronidazole by infectious disease. Repeat testing on 12/27/2024 was negative for Giardia antigen. Of note patient states that 3 years ago when she lived in [place] she had a rat infestation and was bitten multiple times. However she denies any fever, jaundice or skin lesions. ED Course Summary Vitals: BP 128/87 HR 96 RR18 T 97.5F O2 sat 92% RA Labs: WBC 11.8 Coag (PT 12.4 INR 1.2) Na 134 K 7.1 HCO3 16.3 BUN 53 Cr 2.8 Mg 3.2 AST 75 ALP 404. UA unremarkable Imaging: EKG sinus rhythm HR 86 QTc 427. CTAP cirrhosis, mild to moderate ascites, no obstruction, normal appendix, 2mm nonobstructing right renal calculus, 14 mm noudle at the posterior margin of the urinary bladder, recommend urinary bladder sonography Treatment: albuterol 5mg, insulin regular 10unit, furosemide 40mg IVP, sodium polystyrene sulfonate 30mg, sodium bicarbonate 100ml, dextrose 50mL, Calcium chloride 10ml, morphine sulfate 4mg, NaCl 250ml, Protonix 40mg, zofran 4mg IVP Patient was admitted to the floor for generalized weakness. Nephrology was consulted for hyperkalemia. cc:: cc: Maci Toledo MD Review of Systems Review of Systems Narrative Review of Systems: GENERAL: As above HEENT: Denies headaches or visual changes. Denies discharge. Neuro: Denies unusual weakness or difficulty speaking. CARDIO: Denies chest pain or palpitations. PULM: Denies SOB, coughing or wheezing. GI: As above URO: Denies burning/itching/pain/urinary changes. 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 MSK/EXT/SKIN: Denies joint/skeletal/muschle pain, issues/changes in upper or lower extremities, itchiness, or superficial pain. PSYCH: Cooperative, pleasant mood & affect. The rest of the review of systems is otherwise negative. Past Medical History Past Medical History Comments PMH COMMENT: Medical Hx: HTN, giardia (01/20), arthiritis, gout, hypothyroid, chronic back pain secondary to L4 fracture, MASH with cirrhosis Exam Vital Signs Temp Pulse Resp BP Pulse Ox O2 Del Method O2 Flow Rate 97.0 F 86 20 113/68 99 Nasal Cannula 2 02/18/25 07:56 02/18/25 08:11 02/18/25 07:56 02/18/25 08:11 02/18/25 07:56 02/18/25 07:56 02/18/25 07:56 Narrative Exam Constitutional Alert, oriented x 3 and mild distress. Elderly female, obese and appears much older than his stated age HEENT Vision grossly intact. Patent nares. Trachea midline Respiratory Chest normal on inspection and clear auscultation bilaterally Cardiovascular S1 and S2 audible, RRR. No murmurs carotid bruit. No gross JVD. Abdominal Soft and tender to palpation in epigastrium, rectus sheath diastases, bowel sounds + Genitourinary No bladder tenderness, no flank pain. Normal to palpation Musculoskeletal Extremities tone within normal limits. No LE edema. Neurological CN II - XII grossly intact. Extremity motor and sensation grossly intact. S traight leg raise unable to be performed due to pain Skin Warm, dry and intact. No apparent lesions. Psychiatric Patient has good affect, is cooperative Results Labs 02/19/25 04:31 02/19/25 04:31 Labs: Short CBC 02/17/25 02/18/25 Range/Units 22:48 04:20 WBC 11.8 H 15.4 H (3.6-11.0) Thou/mm3 Hgb 14.8 14.3 (12.0-16.0) g/dL Hct 46.7 H 45.3 (36.0-46.0) % Plt Count 216 D 249 D (140-440) Thou/mm3 BMP 02/17/25 02/17/25 02/18/25 20:05 22:48 04:20 Sodium 134 L 139 140 Potassium 7.1 H* 5.7 H D 5.5 H Chloride 108 H 109 H 110 H Carbon Dioxide 16.3 L 21.5 17.0 L BUN 53 H 66 H 59 H Creatinine 2.8 H 2.8 H 2.6 H Glucose 106 135 H 106 Calcium 9.0 9.4 8.4 Liver Function 02/17/25 02/18/25 Range/Units 20:05 04:20 Total Bilirubin 0.5 0.5 (0.3-1.2) mg/dL AST 75 H 69 H (0-34) U/L ALT 30 25 (10-49) U/L Alkaline Phosphatase 404 H 351 H D (46-116) U/L Albumin 3.4 3.1 L (3.4-4.8) gm/dL Urine 02/17/25 Range/Units 23:28 Urine Color Colorless A (Lt Yel-Yel) Urine Clarity Clear (Clear/Hazy) Urine pH 6.0 (5.0-7.0) Ur Specific [place] 1.008 (1.001-1.035) Urine Protein Negative (Neg - Trace) Urine Glucose (UA) Negative (Negative) Quality Measures Quality Measures none Advance care planning discussed with:: patient Medications Home Medications and Allergies Home Medications ?Medication ?Instructions ?Recorded ?Confirmed ?Type acetaminophen 300 mg-codeine 60 mg 1 tab PO Q6H PRN pa in (scale score 12/04/24 02/18/25 History tablet 7-10) allopurinol 100 mg tablet 100 mg PO DAILY 12/04/24 History amitriptyline 25 mg tablet 25 mg PO DAILY 12/04/24 History amlodipine 5 mg tablet 5 mg PO DAILY 12/04/2402/18 History levothyroxine 137 mcg tablet 137 mcg PO DAILY 12/04/24 02/18/25 History lisinopril 20 mg tablet 20 mg PO DAILY 12/04/2401/28 History triamterene 75 1 tab PO DAILY 12/04/2401/28 History mg-hydrochlorothiazide 50 mg tablet Allergies Allergy/AdvReac Type Severity Reaction Status Date / Time No Known Allergies Allergy Verified 12/07/24 14:34 Visit Medications Acetaminophen (Acetaminophen 325 Mg Tablet) 650 mg PO Q6H PRN PRN Reason: Fever >100.4 or pain 1-3 Stop: 03/19/25 23:40 Hydrocodone Bitart/Acetaminophen (Hydrocodone/Apap 5/325 Tablet) 1 tab PO Q4HR PRN PRN Reason: PAIN SCALE 4-6 (Moderate Stop: 02/22/25 23:40 Amlodipine Besylate (Amlodipine Besylate 5 Mg Tablet) 5 mg PO QDAY [facility] Stop: 03/20/25 08:59 Last Admin: 02/18/25 08:11 Dose: 5 mg Dextrose (Dextrose 50%-Water Inj 50 Ml Syringe) 25 ml IV Q15MIN PRN PRN Reason: BG 50-70 responsive npo pt Stop: 03/19/25 21:15 Dextrose (Dextrose 50%-Water Inj 50 Ml Syringe) 50 ml IV Q15MIN PRN PRN Reason: BG <50 OR BG <70 & pt unresponsive Stop: 03/19/25 21:15 Docusate Sodium (Docusate Sod 100 Mg Capsule) 100 mg PO QDAY [facility]; Protocol Stop: 03/20/25 08:59 Last Admin: 02/18/25 08:11 Dose: 100 mg Glucagon (Glucagon Inj 1 Mg Vial) 1 mg IM Q15MIN PRN PRN Reason: BG <70, and no IV access Heparin Sodium (Porcine) (Heparin Sod Inj 5000 Unit/Ml Vial) 5,000 unit SC Q12HR [facility] Stop: 03/04/25 08:59 Last Admin: 02/18/25 08:11 Dose: 5,000 unit Dextrose (D5w) 1,000 mls @ 125 mls/hr IV .Q8H [facility] Stop: 03/20/25 06:44 Last Admin: 02/18/25 07:43 Dose: 125 mls/hr Levothyroxine Sodium 112 mcg/ (Levothyroxine Sodium 25 mcg) 137 mcg PO ACBR [facility] Stop: 03/21/25 05:59 Ondansetron HCl (Ondansetron Inj 2 Mg/Ml Inj 2 Ml) 4 mg IVP Q1H PRN PRN Reason: PERSISTENT NAUSEA OR VOMITING Last Admin: 02/17/25 20:12 Dose: 4 mg Ondansetron HCl (Ondansetron Inj 2 Mg/Ml Inj 2 Ml) 4 mg IVP Q6H PRN; Protocol PRN Reason: NAUSEA OR VOMITING Stop: 03/19/25 23:40 Last Admin: 02/18/25 04:53 Dose: 4 mg Pantoprazole Sodium (Pantoprazole Inj 40 Mg Vial) 40 mg IVP QDAY RAMON Stop: 03/20/25 08:59 Last Admin: 02/18/25 08:12 Dose: 40 mg Sevelamer Carbonate (Sevelamer Carbonate 800 Mg Tablet) 800 mg PO TIDWM [facility] Stop: 03/20/25 07:59 Last Admin: 02/18/25 08:23 Dose: 800 mg Tramadol HCl (Tramadol Hcl 50 Mg Tablet) 100 mg PO Q6HR PRN PRN Reason: pain 7-10 Stop: 02/23/25 07:30 Discontinued Medications Hydrocodone Bitart/Acetaminophen (Hydrocodone/Apap 5/325 Tablet) 1 tab PO X1 ONE Stop: 02/18/25 07:49 Last Admin: 02/18/25 08:11 Dose: 1 tab Albuterol (Albuterol Rt 2.5 Mg/3 Ml Nebu) 5 mg INH X1 ONE Stop: 02/17/25 22:34 Last Admin: 02/17/25 23:11 Dose: 5 mg Calcium Chloride (Calcium Chloride 10% Inj 10 Ml Syrg) 10 ml IV X1 ONE Stop: 02/17/25 21:17 Last Admin: 02/17/25 21:59 Dose: 10 ml Dextrose (Dextrose 50%-Water Inj 50 Ml Syringe) 100 ml IV X1 ONE Stop: 02/17/25 21:17 Last Admin: 02/17/25 22:25 Dose: Not Given Dextrose (Dextrose 50%-Water Inj 50 Ml Syringe) 50 ml IVP X1 ONE Stop: 02/17/25 21:46 Last Admin: 02/17/25 21:59 Dose: 50 ml Furosemide (Furosemide Inj 10 Mg/Ml Vial 2 Ml) 40 mg IVP X1 ONE Stop: 02/17/25 21:17 Last Admin: 02/17/25 22:21 Dose: 40 mg Sodium Chloride (Ns) 250 mls @ 250 mls/hr IV .Q1H ONE Stop: 02/17/25 20:16 Last Admin: 02/17/25 20:17 Dose: 250 mls/hr Promethazine HCl 6.25 mg/ (Sodium Chloride) 50.25 mls @ 2.5 mls/min IV X1 ONE Stop: 02/17/25 19:37 Last Admin: 02/17/25 23:08 Dose: Not Given Dextrose (D10w 1000 Ml) 1,000 mls @ 100 mls/hr IV .Q10H [facility]ON Stop: 02/18/25 07:29 Last Admin: 02/18/25 03:41 Dose: Not Given Sodium Chloride (Ns) 1,000 mls @ 999 mls/hr IV .Q1H1M ONE Stop: 02/18/25 00:47 Last Admin: 02/18/25 00:21 Dose: 999 mls/hr Sodium Chloride (Ns) 1,000 mls @ 999 mls/hr IV .Q1H1M ONE Stop: 02/18/25 00:50 Last Admin: 02/18/25 02:14 Dose: 999 mls/hr Sodium Chloride (Ns) 1,000 mls @ 75 mls/hr IV .[id number] [facility] Stop: 03/20/25 01:21 Last Admin: 02/18/25 03:14 Dose: 75 mls/hr Sodium Chloride (Ns) 1,000 mls @ 999 mls/hr IV .Q1H1M ONE Stop: 02/18/25 07:41 Sodium Chloride (Ns) 1,000 mls @ 125 mls/hr IV .Q8H [facility] Stop: 03/20/25 06:42 Lactated Ringer's (Lactated Ringers) 1,000 mls @ 125 mls/hr IV .Q8H ONE Stop: 02/18/25 15:56 Last Admin: 02/18/25 08:28 Dose: Not Given Insulin Human Regular (Insulin Hum Regular 1 Unit/0.01 Ml (Per Unit)) 10 unit IV X1 ONE Stop: 02/17/25 21:17 Last Admin: 02/17/25 22:27 Dose: 10 unit Insulin Human Regular (Insulin Hum Regular 1 Unit/0.01 Ml (Per Unit)) 10 unit IV X1 ONE Stop: 02/18/25 03:01 Last Admin: 02/18/25 03:49 Dose: Not Given Levothyroxine Sodium (Levothyroxine Sodium 125 Mcg Tablet) 125 mcg PO ACBR [facility] Stop: 03/20/25 05:59 Last Admin: 02/18/25 05:00 Dose: 125 mcg Levothyroxine Sodium (Levothyroxine Sodium 125 Mcg Tablet) 137 mcg PO ACBR [facility] Stop: 03/21/25 05:59 Metoclopramide HCl (Metoclopramide Inj 5 Mg/Ml Vial 2 Ml) 5 mg IVP X1 ONE; Protocol Stop: 02/18/25 08:24 Last Admin: 02/18/25 08:27 Dose: 5 mg Morphine Sulfate (Morphine Sulf Inj 4 Mg/Ml Vial) 4 mg IVP X1 ONE Stop: 02/17/25 19:19 Last Admin: 02/17/25 20:17 Dose: 4 mg Pantoprazole Sodium (Pantoprazole Inj 40 Mg Vial) 40 mg IVP X1 ONE Stop: 02/17/25 19:18 Last Admin: 02/17/25 20:13 Dose: 40 mg Sodium Bicarbonate (Sodium Bicarb Inj 8.4% Syr 50 Ml Syringe) 100 ml IV X1 ONE Stop: 02/17/25 21:17 Last Admin: 02/17/25 22:16 Dose: 100 ml Sodium Polystyrene Sulfonate (Sod Polystyrene Sulfon Susp 15 Gm/60 Ml Btl) 60 gm PO X1 ONE Stop: 02/17/25 21:17 Last Admin: 02/17/25 22:24 Dose: Not Given Sodium Polystyrene Sulfonate (Sod Polystyrene Sulfon Susp 15 Gm/60 Ml Btl) 30 gm PO X1 ONE Stop: 02/17/25 21:49 Last Admin: 02/17/25 22:16 Dose: 30 gm Sodium Polystyrene Sulfonate (Sod Polystyrene Sulfon Susp 15 Gm/60 Ml Btl) 30 gm PO X1 ONE Stop: 02/18/25 07:55 Last Admin: 02/18/25 08:11 Dose: 30 gm Assessment & Plan Plan Patient is a 70-year-old female past medical history significant for primary hypertension, obstructive sleep apnea, MASH with cirrhosis, depression, 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 Patient was admitted to the floor for generalized weakness. Nephrology was consulted for hyperkalemia. Acute kidney injury on CKD stage IIIb Hyperkalemia Hyperphosphatemia Hypomagnesemia Non-anion gap metabolic acidosis Patient presented with diarrhea x 3 weeks and reduced p.o. intake x 1 week. DDx: Lisinopril side effect, metabolic acidosis, KADI Baseline CR between 1.5?1.4. On admission CR 2.8 On admission K7.1??>5.5 Phosphorus [address] abdomen pelvis this admission showed no signs of hydronephrosis and a 2 mm nonobstructing right renal calculi Plan: ? Encourage p.o. intake ? Renally dose medication ? Avoid nephrotoxic agents ? Ordered urine electrolytes ? Ordered renal ultrasound ? Recommend to discontinue lisinopril upon discharge ? Bicitra 30 mL p.o. twice daily MASH with cirrhosis Transaminitis History of Giardia infection Diarrhea Pulmonary nodule Subacute L4 compression fracture Obstructive sleep apnea Primary hypertension Hypothyroidism Hypoalbuminemia Plan: ? Continue care as per primary team Thank you for the opportunity to participate in the care of Mrs. Poe Plan of care discussed with Attending Dr. Catherine Palumbo MD PGY 2 Disclaimer: This note was dictated by speech recognition. Minor errors in transit authority police officer may be present due to voice recognition software. Attending Provider Attestation/Addendum Patient currently seen and examined with resident physician Dr. Palumbo. Note reviewed, agree with findings and recommendations. Patient currently seen in medical floor. Patient with multiple medical problems. KADI secondary to prerenal azotemia from loose stools, decreased p.o. intake for the last couple of weeks. Hyperkalemia from KADI, metabolic acidosis, lisinopril, triamterene. Medical management did not help with hyperkalemia. Thank you Kieran for allowing me to participate in the care of Ms. Poe
[2025-02-18 11:44] LABS: Chloride,Urine Random 66.4 mMol/L (55.0-125.0); Creatinine,Random Urine 49 mg/dL (30-125); Potassium,Urine Random 54 mMol/L (12-62); Sodium,Urine Random 27.3 mMol/L (20.0-110.0)
--- NOTE | 2025-02-18 11:56 | ESPR_ITS ---
Documentation for date of: 02/18/25 Subjective Subjective Interval history: Patient reports worsening weakness compared to yesterday. States she ?cannot get out of bed? and feels completely bedbound today. Reports dizziness when sitting up or standing. Back pain continues but Greenwood is helping somewhat. No chest pain but mild shortness of breath; O2 saturation remained 96% on room air. She had a bowel movement after last night?s enema, still feels bloated and gassy with diffuse abdominal pain. Ongoing significant nausea despite Reglan. Denies dysuria, has episodic incontinence at home due to inability to reach bathroom but no hematuria. Exam Vital Signs Temp Pulse Resp BP Pulse Ox O2 Del Method O2 Flow Rate 98.1 F 82 19 115/58 L 96 Room Air 2 02/18/25 11:42 02/18/25 11:42 02/18/25 11:42 02/18/25 11:42 02/18/25 11:42 02/18/25 11:42 02/18/25 07:56 Narrative Exam General: Awake, alert, oriented ?4. Appears uncomfortable. Bedbound. No acute distress. HEENT: Normocephalic, atraumatic. Mucous membranes dry. No scleral icterus. Cardiac: Regular rate and rhythm. Normal S1/S2. No murmurs, rubs, or gallops. Respiratory: Normal respiratory effort. Lungs clear to auscultation bilaterally. No wheezes, rales, or rhonchi. Abdomen: Soft, mildly distended, diffusely tender to palpation. Positive bloating/gas discomfort. Bowel sounds present. No rebound or guarding. Extremities: +2 bilateral lower-extremity pitting edema to upper calves. No erythema or warmth. Neuro: Speech clear. Moves all extremities but with reduced effort due to weakness. No focal deficits. Dizziness with sitting up. Bedbound today. Skin: Warm, dry. No rash or lesions. : No CVA tenderness. Objective Labs 02/18/25 04:20 02/18/25 04:20 Labs: Laboratory Results - last 24 hr 02/17/25 02/17/25 02/17/25 20:05 22:48 23:28 WBC 11.8 H RBC 4.99 Hgb 14.8 Hct 46.7 H MCV 94 MCH 29.7 MCHC 31.7 RDW Std Deviation 56.5 H Plt Count 216 D Neut % (Auto) 85 H Lymph % (Auto) 12 [place] % (Auto) 3 Eos % (Auto) 0 Baso % (Auto) 0 Neut # (Auto) 10.0 H Lymph # (Auto) 1.4 [place] # (Auto) 0.3 Eos # (Auto) 0.0 Baso # (Auto) 0.0 Immature Gran # (Auto) 0.06 H Absolute Nucleated RBC 0.00 Immature Gran % 1 H Nucleated RBC % 0 PT 12.4 H INR 1.2 Sodium 134 L 139 Potassium 7.1 H* 5.7 H D Chloride 108 H 109 H Carbon Dioxide 16.3 L 21.5 Anion Gap 10 9 BUN 53 H 66 H Creatinine 2.8 H 2.8 H Estim Creat Clear Calc 24.2 L 24.2 L eGFR 18 L 18 L BUN/Creatinine Ratio 19 24 H Glucose 106 135 H Calculated Osmolality 282 298 H Lactic Acid Calcium 9.0 9.4 Corrected Calcium 9.5 Phosphorus Magnesium 3.2 H Total Bilirubin 0.5 AST 75 H ALT 30 Alkaline Phosphatase 404 H Total Protein 6.1 Albumin 3.4 Globulin 2.7 Albumin/Globulin Ratio 1.3 Amylase 78 Lipase 46 Ur Collection Type Clean Catch Urine Color Colorless A Urine Clarity Clear Urine pH 6.0 Ur Specific [place] 1.008 Urine Protein Negative Urine Glucose (UA) Negative Urine Ketones Negative Urine Blood Negative Urine Nitrite Negative Urine Bilirubin Negative Urine Urobilinogen (Auto) Negative Ur Leukocyte Esterase Negative Urine RBC 1 Urine WBC 1 Ur Squamous Epith Cells 2 Urine Bacteria None Ur Culture Indicated? Not Indicated Ur Random Creatinine Ur Random Sodium Ur Random Potassium Ur Random Chloride 02/17/25 02/18/25 02/18/25 23:34 04:20 10:50 WBC 15.4 H RBC 4.80 Hgb 14.3 Hct 45.3 MCV 94 MCH 29.8 MCHC 31.6 RDW Std Deviation 56.9 H Plt Count 249 D Neut % (Auto) 82 H Lymph % (Auto) 11 [place] % (Auto) 6 Eos % (Auto) 0 Baso % (Auto) 0 Neut # (Auto) 12.5 H Lymph # (Auto) 1.7 [place] # (Auto) 1.0 H Eos # (Auto) 0.0 Baso # (Auto) 0.1 Immature Gran # (Auto) 0.12 H Absolute Nucleated RBC 0.00 Immature Gran % 1 H Nucleated RBC % 0 PT INR Sodium 140 Potassium 5.5 H Chloride 110 H Carbon Dioxide 17.0 L Anion Gap 13 BUN 59 H Creatinine 2.6 H Estim Creat Clear Calc 26.9 L eGFR 19 L BUN/Creatinine Ratio 23 H Glucose 106 Calculated Osmolality 295 Lactic Acid 1.9 Calcium 8.4 Corrected Calcium 9.1 Phosphorus 6.0 H Magnesium 2.8 H Total Bilirubin 0.5 AST 69 H ALT 25 Alkaline Phosphatase 351 H D Total Protein 5.6 L Albumin 3.1 L Globulin 2.5 Albumin/Globulin Ratio 1.2 Amylase Lipase Ur Collection Type Urine Color Urine Clarity Urine pH Ur Specific [place] Urine Protein Urine Glucose (UA) Urine Ketones Urine Blood Urine Nitrite Urine Bilirubin Urine Urobilinogen (Auto) Ur Leukocyte Esterase Urine RBC Urine WBC Ur Squamous Epith Cells Urine Bacteria Ur Culture Indicated? Ur Random Creatinine 49 Ur Random Sodium 27.3 Ur Random Potassium 54 Ur Random Chloride 66.4 Quality Measures Quality Measures VTE prophylaxis Advance care planning discussed with:: patient Assessment & Plan Assessment Current Active Medications: Generic Name Dose Route Start Last Admin Trade Name Freq PRN Reason Stop Dose Admin Acetaminophen 650 mg 02/17/25 23:41 Acetaminophen 325 Mg Tablet PO 03/19/25 23:40 Q6H PRN Fever >100.4 or pain 1-3 Hydrocodone Bitart/Acetaminophen 1 tab 02/17/25 23:41 Hydrocodone/Apap 5/325 Tablet PO 02/22/25 23:40 Q4HR PRN PAIN SCALE 4-6 (Moderate Amlodipine Besylate 5 mg 02/18/25 09:00 02/18/25 08:11 Amlodipine Besylate 5 Mg Tablet PO 03/20/25 08:59 5 mg QDAY RAMON Administration Dextrose 25 ml 02/17/25 21:16 Dextrose 50%-Water Inj 50 Ml Syringe IV 03/19/25 21:15 Q15MIN PRN BG 50-70 responsive npo pt Dextrose 50 ml 02/17/25 21:16 Dextrose 50%-Water Inj 50 Ml Syringe IV 03/19/25 21:15 Q15MIN PRN BG <50 OR BG <70 & pt unresponsive Docusate Sodium 100 mg 02/18/25 09:00 02/18/25 08:11 Docusate Sod 100 Mg Capsule PO 03/20/25 08:59 100 mg QDAY RAMON Administration Protocol Glucagon 1 mg 02/17/25 21:16 Glucagon Inj 1 Mg Vial IM Q15MIN PRN BG <70, and no IV access Heparin Sodium (Porcine) 5,000 unit 02/18/25 09:00 02/18/25 08:11 Heparin Sod Inj 5000 Unit/Ml Vial SC 03/04/25 08:59 5,000 unit Q12HR RAMON Administration Dextrose 1,000 mls @ 125 mls/hr 02/18/25 06:45 02/18/25 07:43 D5w IV 03/20/25 06:44 125 mls/hr .Q8H RAMON Administration Levothyroxine Sodium 112 mcg/ 137 mcg 02/19/25 06:00 Levothyroxine Sodium 25 mcg PO 03/21/25 05:59 ACBR RAMON Ondansetron HCl 4 mg 02/17/25 19:17 02/18/25 11:27 Ondansetron Inj 2 Mg/Ml Inj 2 Ml IVP 4 mg Q1H PRN Administration PERSISTENT NAUSEA OR VOMITING Ondansetron HCl 4 mg 02/17/25 23:41 02/18/25 04:53 Ondansetron Inj 2 Mg/Ml Inj 2 Ml IVP 03/19/25 23:40 4 mg Q6H PRN Administration NAUSEA OR VOMITING Protocol Pantoprazole Sodium 40 mg 02/18/25 09:00 02/18/25 08:12 Pantoprazole Inj 40 Mg Vial IVP 03/20/25 08:59 40 mg QDAY RAMON Administration Tramadol HCl 100 mg 02/18/25 07:31 Tramadol Hcl 50 Mg Tablet PO 02/23/25 07:30 Q6HR PRN pain 7-10 Plan 70-year-old female with CKD, HTN, hypothyroidism, chronic back pain, recent giardia infection, presenting with generalized weakness, severe hyperkalemia (K 7.1), KADI (Cr 2.8), and constipation, now with persistent weakness, abdominal pain, nausea, and functional decline. # Hyperkalemia, improving K 7.1 -> 5.7 -> 5.5 after insulin, bicarb, albuterol, Lasix, and 120 Kayexalate. No EKG changes. Plan: * Continue telemetry * Repeat BMP in AM * Hold lisinopril * Low-potassium diet * Nephrology following # KADI on CKD (stable) Cr 2.8 -> 2.6. Likely prerenal from poor PO intake + GI illness. No obstruction noted. Plan: * Was on D5 fluids, encouraged patient to oral hydrate. * Strict I/Os, daily weights * Avoid nephrotoxins * Daily BMP * Hold allopurinol and lisinopril # Generalized weakness / functional decline Now bedbound today; reports severe fatigue, dizziness when upright, and inability to ambulate. Likely from dehydration, recent illness, constipation, poor intake, and deconditioning. Plan: * PT to evaluate once abdominal pain stabilizes * Continue hydration # Abdominal pain # Constipation/bloating # Nausea Large stool burden on CT. Had BM after enema but still bloated, gassy, and uncomfortable. Significant nausea despite Reglan, poor PO intake. Plan: * Started simethicone PRN for gas * Encourage mobility as tolerated * Continue Reglan # Transaminitis # Cirrhosis # MYERS LFTs downtrending CT shows cirrhosis with mild ascites. Plan: * Trend LFTs * Avoid hepatotoxic meds # Incidental bladder-adjacent 14 mm nodule Outpatient follow-up needed. Plan: * Arrange outpatient bladder ultrasound * follow up with PCP # Hypertension Plan: * Continue amlodipine 5 mg * Hold lisinopril due to KADI # Hypothyroidism Plan: * Continue levothyroxine 137 mcg daily # Chronic back pain Improved with [place]. Plan: * [place]wood PRN only * Add lidocaine patch if needed * Reassess pain daily Health maintenance: Code: Full DVT ppx: Heparin SQ GI ppx: Protonix Diet: Carb consistent, low-potassium Disposition: Telemetry ----- Plan discussed with attending physician Dr. Elvira Dean MD PGY-1 Internal Medicine Attending Provider Attestation/Addendum I have discussed and was present for the essential components of the history, physical examination, diagnosis, and treatment plan with the resident. I agree with the patient's care as documented by the resident and amended herein by me. Kieran Felix DO. Although this document has been carefully reviewed, there may still be some phonetic and other typographical errors. These errors are purely grammatical due to imperfections in the software program and should not be construed in any way to compromise the substance of the patient's medical care during this visit. Patient seen and evaluated this AM. No acute events overnight, vital signs stable, patient afebrile, patient has had bowel movements. Significant labs include WBC 15, sodium 140, potassium had downtrended to 5.5, chloride 110, bicarb low at 17, BUN 59 and a downtrended creatinine to 2.6. Will continue IVF for now, the patient's hyperkalemia and KADI have improved, nephrology is consulted, appreciate recommendations. The patient is requesting SNF placement, PT is ordered and pending
--- NOTE | 2025-02-18 12:08 | PC.SS ---
Elle Poe is a 62-year-old female admitted to Med Surg for Weakness. SS conducted bedside contact with the patient to complete initial assessment and to discuss discharge planning. Role and reason explained. Patient was accompanied by her Dick Poe [phone]. Patient confirmed demographic information. Patient identifies her Dick as her surrogate decision maker. Pt states she has a mobility decline over the last few weeks and unable to do things as she used to. Pt uses a rollator walker and cane primarily. Pts PCP is Dr. Tona Metz. Pharmacy of choice is [facility]. Discharge options discussed and the pt wishes to go to short-term rehab, due to pt insurance will require auth, so PT has been requested, no preference at this time.? Family will provide transportation upon DC. No further intervention required at this time, social economist would be available to address any further concerns. DC Plan: SNF Contact: Dick Address: Confirmed on face sheet PCP: Tona Metz
[2025-02-18] MEDS: CITRIC ACID/SODIUM CITR 15 ML UDC (BICITRA) 30 ML PO ×2 (12:30→21:35)
--- NOTE | 2025-02-18 13:21 | PC.SS ---
SNF referral submitted pending responses.
--- NOTE | 2025-02-18 17:04 | PC.NURSE ---
Patient unable to tolerate oral hydration of 333mls every hours for 3 hours do to nausea. Patient encouraged to drink fluids. Dr. Nieves torres.
[2025-02-18] MEDS: SIMETHICONE 80 MG CHEW PO (17:25)
--- NOTE | 2025-02-18 18:46 | PC.NURSE ---
Patient c/o shortness of breath. Dr. Brar at bedside. Lung sounds clean and oxygen saturation on room air, at rest, 96%. Per Dr. Brar, administer 0.5 mg of ativan PO.
--- NOTE | 2025-02-18 22:05 | PC.NURSE ---
per day shift nurse savana pink aware of patient being unable to complete oral hydration of 1000L (333ml q 1hr) due to nausea. Pt is still encouraged to drink fluids. Pt is able to take small amounts of fluids slowly.
[2025-02-19] VITALS (12 sets, daily range): BP systolic 97–129; BP diastolic 62–80; PULSE 78–90; RESP 18–23; TEMP 36–36.9; O2SAT 94–98; BMI 11.0
[2025-02-19] MEDS: HYDROcodone/APAP 5/325 TABLET 1 TAB PO ×4 (04:07→23:51)
[2025-02-19 05:46] LABS: Basophils # (Auto) 0.0 Thou/mm3 (0.0-0.2); Basophils % (Auto) 0 % (0-2.5); Eosinophils # (Auto) 0.1 Thou/mm3 (0.0-0.5); Eosinophils % (Auto) 0 % (0-10); Hematocrit 46.5 % (36.0-46.0); Hemoglobin 15.2 g/dL (12.0-16.0); Immature Granulocytes Auto 0.07 Thou/mm3 (0.00-0.00); Lymphocytes # (Auto) 2.2 Thou/mm3 (1.0-4.8); Lymphocytes % (Auto) 16 % (10-50); Mean Corpuscular HGB Conc 32.7 g/dl (31.0-37.0); Mean Corpuscular Hemoglobin 30.7 pg (25.0-35.0); Mean Corpuscular Volume 94 fL (80-100); Monocytes # (Auto) 0.8 Thou/mm3 (0.0-0.8); Monocytes % (Auto) 6 % (0-12); Neutrophils # (Auto) 10.3 Thou/mm3 (1.8-7.7); Neutrophils % (Auto) 77 % (37-80); Nucleated Red Blood Cell # 0.00 Thou/mm3 (0.00-0.00); Nucleated Red Blood Cell % 0 /100 WBC (0); Platelet Count 202 Thou/mm3 (140-440); RDW Standard Deviation 56.2 fL (36.4-46.3); Red Blood Count 4.95 Miln/mm3 (4.00-5.20); White Blood Count 13.4 Thou/mm3 (3.6-11.0)
[2025-02-19 06:11] LABS: Alanine Aminotransferase 33 U/L (10-49); Albumin, Serum 3.1 gm/dL (3.4-4.8); Albumin/Globulin Ratio 1.3 (1.2-2.2); Alkaline Phosphatase 423 U/L (46-116); Anion Gap 10 (7-16); Aspartate Amino Transferase 97 U/L (0-34); BUN/Creatinine Ratio 19 Ratio (12-20); Bilirubin,Total 0.5 mg/dL (0.3-1.2); Blood Urea Nitrogen 50 mg/dL (9-23); Calcium 8.3 mg/dL (8.3-10.6); Calcium (Corrected) 9.0 mg/dL (8.5-10.1); Carbon Dioxide 21.2 mMol/L (20.0-31.0); Chloride 105 mMol/L (98-107); Creatinine (Component) 2.6 mg/dL (0.6-1.3); Estimated Creatinine Clearance 26.5 mL/min (>60); Globulin 2.4 gm/dL (2.3-3.5); Glucose 90 mg/dL (74-106); Magnesium 2.6 mg/dL (1.6-2.6); Osmolality,Calculated 285 (275-295); Phosphorous 4.7 mg/dL (2.4-5.1); Potassium 5.2 mMol/L (3.4-5.1); Sodium 136 mMol/L (136-145); Total Protein 5.5 gm/dL (5.7-8.2); eGFR 19 See Note
--- NOTE | 2025-02-19 08:12 | PC.SS ---
PASRR initiated meets LVL 2, pending clearance
[2025-02-19] MEDS: HEPARIN SOD INJ 5000 UNIT/ML VIAL SC ×2 (08:13→20:43)
[2025-02-19] MEDS: ACETAMINOPHEN 325 MG TABLET 650 MG PO (08:17)
[2025-02-19] MEDS: DOCUSATE SOD 100 MG CAPSULE PO (08:18)
[2025-02-19] MEDS: CITRIC ACID/SODIUM CITR 15 ML UDC (BICITRA) 30 ML PO ×2 (08:18→20:43)
[2025-02-19] MEDS: RINGERS LACTATED 1000 ML 1,000 ML 125 ML IV ×2 (09:29→17:33)
--- NOTE | 2025-02-19 09:43 | ESPR_ITS ---
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 Patient stated for the past 3 months she had progressively worsening generalized weakness. She was previously able to ambulate independently but this gradually decreased to using a walker and just prior to admission being completely dependent for transfers and mostly bedbound. She attributes this to her L4 compression fracture from June 2024. For the past week she has had poor oral intake due to pain and diarrhea. She follows up with her primary care doctor who recommended cortisone shots, however she has never had spinal orthopedic consultation. Patient also reports a 3-month history of watery diarrhea with more than 5 episodes per day. Denies any nausea/ vomiting. She was diagnosed with Giardia infection on 12/06/2024 and started on metronidazole by infectious disease. Repeat testing on 12/27/2024 was negative for Giardia antigen. Of note patient states that 3 years ago when she lived in [place] she had a rat infestation and was bitten multiple times. However she denies any fever, jaundice or skin lesions. ED Course Summary Vitals: BP 128/87 HR 96 RR18 T 97.5F O2 sat 92% RA Labs: WBC 11.8 Coag (PT 12.4 INR 1.2) Na 134 K 7.1 HCO3 16.3 BUN 53 Cr 2.8 Mg 3.2 AST 75 ALP 404. UA unremarkable Imaging: EKG sinus rhythm HR 86 QTc 427. CTAP cirrhosis, mild to moderate ascites, no obstruction, normal appendix, 2mm nonobstructing right renal calculus, 14 mm noudle at the posterior margin of the urinary bladder, recommend urinary bladder sonography Treatment: albuterol 5mg, insulin regular 10unit, furosemide 40mg IVP, sodium polystyrene sulfonate 30mg, sodium bicarbonate 100ml, dextrose 50mL, Calcium chloride 10ml, morphine sulfate 4mg, NaCl 250ml, Protonix 40mg, zofran 4mg IVP Patient was admitted to the floor for generalized weakness. Nephrology was consulted for hyperkalemia. 02/19/2025: Patient seen and examined at bedside. Patient endorses dysuria and uncomfortable Sanchez catheter, however states overall improvement in weakness. Exchange sanchez to purewick. Urine output 1.4L. Hyperkalemia improved 5.2 today, likely 2/2 acidotic state. Cr improving at 2.6, however BL 1.4-1.5. Continue Bicitra and start gentle IVF. Exam Vital Signs Temp Pulse Resp BP Pulse Ox O2 Del Method O2 Flow Rate 97.4 F 85 20 97/62 96 Nasal Cannula 2 02/19/25 08:17 02/19/25 08:16 02/19/25 07:13 02/19/25 08:16 02/19/25 07:13 02/19/25 07:13 02/19/25 07:13 FiO2 30 02/18/25 18:51 Narrative Exam GENERAL: AOx3, no acute distress HEENT: mucous membranes dry, bilateral sclera anicteric CARDIOVASCULAR: regular rate and rhythm, S1/S2 present, no murmurs appreciated PULMONARY: clear to auscultation bilaterally, no rales/rhonchi/wheezes ABDOMINAL: soft, distended, mildly tender to deep palpation, rectus sheath diastases, no rebound/guarding, bowel sounds present EXTREMITIES: 1+ BLE pitting edema, bedbound SKIN: warm and dry, intact, no rashes NEURO: CN II-XII grossly intact, no focal deficits, alert, following commands Objective Labs 02/19/25 04:31 02/19/25 04:31 Labs: Laboratory Results - last 24 hr 02/18/25 02/19/25 10:50 04:31 WBC 13.4 H RBC 4.95 Hgb 15.2 Hct 46.5 H MCV 94 MCH 30.7 MCHC 32.7 RDW Std Deviation 56.2 H Plt Count 202 D Neut % (Auto) 77 Lymph % (Auto) 16 Jennings % (Auto) 6 Eos % (Auto) 0 Baso % (Auto) 0 Neut # (Auto) 10.3 H Lymph # (Auto) 2.2 Jennings # (Auto) 0.8 Eos # (Auto) 0.1 Baso # (Auto) 0.0 Immature Gran # (Auto) 0.07 H Absolute Nucleated RBC 0.00 Immature Gran % 1 H Nucleated RBC % 0 Sodium 136 Potassium 5.2 H Chloride 105 Carbon Dioxide 21.2 Anion Gap 10 BUN 50 H Creatinine 2.6 H Estim Creat Clear Calc 26.5 L eGFR 19 L BUN/Creatinine Ratio 19 Glucose 90 Calculated Osmolality 285 Calcium 8.3 Corrected Calcium 9.0 Phosphorus 4.7 Magnesium 2.6 Total Bilirubin 0.5 AST 97 H ALT 33 Alkaline Phosphatase 423 H D Total Protein 5.5 L Albumin 3.1 L Globulin 2.4 Albumin/Globulin Ratio 1.3 Ur Random Creatinine 49 Ur Random Sodium 27.3 Ur Random Potassium 54 Ur Random Chloride 66.4 Quality Measures Quality Measures VTE prophylaxis Advance care planning discussed with:: patient Assessment & Plan Assessment Current Active Medications: Generic Name Dose Route Start Last Admin Trade Name Freq PRN Reason Stop Dose Admin Acetaminophen 650 mg 02/17/25 23:41 02/19/25 08:17 Acetaminophen 325 Mg Tablet PO 03/19/25 23:40 650 mg Q6H PRN Administration Fever >100.4 or pain 1-3 Hydrocodone Bitart/Acetaminophen 1 tab 02/17/25 23:41 02/19/25 04:07 Hydrocodone/Apap 5/325 Tablet PO 02/22/25 23:40 1 tab Q4HR PRN Administration PAIN SCALE 4-6 (Moderate Citric Acid/Sodium Citrate 30 ml 02/18/25 12:15 02/19/25 08:18 Citric Acid/Sodium Citr 15 Ml Udc (Bicitra) PO 03/20/25 12:14 30 ml BID RAMON Administration Dextrose 25 ml 02/17/25 21:16 Dextrose 50%-Water Inj 50 Ml Syringe IV 03/19/25 21:15 Q15MIN PRN BG 50-70 responsive npo pt Dextrose 50 ml 02/17/25 21:16 Dextrose 50%-Water Inj 50 Ml Syringe IV 03/19/25 21:15 Q15MIN PRN BG <50 OR BG <70 & pt unresponsive Docusate Sodium 100 mg 02/18/25 09:00 02/19/25 08:18 Docusate Sod 100 Mg Capsule PO 03/20/25 08:59 100 mg QDAY RAMON Administration Protocol Glucagon 1 mg 02/17/25 21:16 Glucagon Inj 1 Mg Vial IM Q15MIN PRN BG <70, and no IV access Heparin Sodium (Porcine) 5,000 unit 02/18/25 09:00 02/19/25 08:13 Heparin Sod Inj 5000 Unit/Ml Vial SC 03/04/25 08:59 5,000 unit Q12HR RAMON Administration Lactated Ringer's 1,000 mls @ 125 mls/hr 02/19/25 08:39 02/19/25 09:29 Lactated Ringers IV 02/20/25 00:38 125 mls/hr .Q8H RAMON Administration Levothyroxine Sodium 112 mcg/ 137 mcg 02/19/25 06:00 02/19/25 05:19 Levothyroxine Sodium 25 mcg PO 03/21/25 05:59 137 mcg ACBR RAMON Administration Ondansetron HCl 4 mg 02/17/25 23:41 02/18/25 04:53 Ondansetron Inj 2 Mg/Ml Inj 2 Ml IVP 03/19/25 23:40 4 mg Q6H PRN Administration NAUSEA OR VOMITING Protocol Pantoprazole Sodium 40 mg 02/18/25 09:00 02/19/25 08:12 Pantoprazole Inj 40 Mg Vial IVP 03/20/25 08:59 40 mg QDAY RAMON Administration Simethicone 80 mg 02/18/25 16:23 Simethicone 80 Mg Chew PO 03/20/25 16:22 QID PRN GAS Tramadol HCl 100 mg 02/18/25 07:31 Tramadol Hcl 50 Mg Tablet PO 02/23/25 07:30 Q6HR PRN pain 7-10 Plan Patient is a 70-year-old female past medical history significant for primary hypertension, obstructive sleep apnea, MASH with cirrhosis, depression, 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 Patient was admitted to the floor for generalized weakness. Nephrology was consulted for hyperkalemia. Acute kidney injury on CKD stage IIIb Hyperkalemia, improving Hyperphosphatemia Hypomagnesemia Non-anion gap metabolic acidosis Patient presented with diarrhea x 3 weeks and reduced p.o. intake x 1 week. DDx: Lisinopril side effect, metabolic acidosis, KADI Baseline CR between 1.5?1.4. On admission CR 2.8 On admission K7.1??>5.5-> now 5.2. Phosphorus 6. Bicarbonate 17 FeNa 1.1%, possibly prerenal vs intrinsic. However Cr continues to improve with fluids. CT abdomen pelvis this admission showed no signs of hydronephrosis and a 2 mm nonobstructing right renal calculi Renal US showed diminutive b/l kidneys with cortical thinning and increased echogenicity (R 6.9cm, L 8.5 cm), cirrhotic liver with hypoechoic lesions, moderate ascities, nonvisualization of bladder Plan: ? Encourage p.o. intake ? Renally dose medication and avoid nephrotoxic agents ? Recommend to discontinue lisinopril upon discharge ? Bicitra 30 mL p.o. twice daily - Recommend gentle IVF - Changed Sanchez to purewick MASH with cirrhosis Transaminitis History of Giardia infection Diarrhea Pulmonary nodule Subacute L4 compression fracture Obstructive sleep apnea Primary hypertension Hypothyroidism Hypoalbuminemia Plan: ? Continue care as per primary team Thank you for the opportunity to participate in the care of Mrs. Poe Plan of care discussed with Attending Dr. Catherine Paez, DO Internal Medicine PGY-1 Attending Provider Attestation/Addendum Patient currently seen and examined with resident physician Dr. Paez. Note reviewed, agree with findings and recommendations. Patient currently seen in medical floor. Patient with multiple medical problems. KADI secondary to prerenal azotemia from loose stools, decreased p.o. intake for the last couple of weeks. Hyperkalemia from KADI, metabolic acidosis, lisinopril, triamterene. Medical management did help with hyperkalemia. Potassium improving. Acidosis improving. Continue with Bicitra
--- NOTE | 2025-02-19 09:43 | PC.SS ---
Rounding: On IV Fluids, pending PT eval for SNF Auth, SNF choice pending
[2025-02-19 09:55] LABS: Thyroid Stimulating Hormone 50.12 uIU/mL (0.55-4.78)
--- NOTE | 2025-02-19 10:51 | PC.PT ---
Ted pardo from Dr. Cole. FRANCISCO for L4 fx
--- NOTE | 2025-02-19 13:53 | ESPR_ITS ---
<Statement entered by Marty Parker MD - 02/19/25 18:57> I have personally seen and examined the patient, agree with residents assessment and plan Patient plan of care was discussed with the attending physician, Dr. Elvira Parker, PGY2 Documentation for date of: 02/19/25 Subjective Subjective Interval history: Seen at bedside this morning. Patient states she feels better overall today, with less abdominal pain, less bloating, and improving weakness compared to yesterday. Denies chest pain, SOB, palpitations, nausea, or vomiting. She is eating and drinking a little better. No new urinary symptoms. Feels better than yesterday. Exam Vital Signs Temp Pulse Resp BP Pulse Ox O2 Del Method O2 Flow Rate 96.8 F 89 18 129/80 95 Room Air 2 02/19/25 11:27 02/19/25 12:00 02/19/25 11:27 02/19/25 11:27 02/19/25 11:27 02/19/25 11:27 02/19/25 07:13 FiO2 30 02/18/25 18:51 Narrative Exam GENERAL: AOx3, no acute distress HEENT: mucous membranes dry, bilateral sclera anicteric CARDIOVASCULAR: regular rate and rhythm, S1/S2 present, no murmurs appreciated PULMONARY: clear to auscultation bilaterally, no rales/rhonchi/wheezes ABDOMINAL: soft, distended, mildly tender to deep palpation, rectus sheath diastases, no rebound/guarding, bowel sounds present EXTREMITIES: 1+ BLE pitting edema, bedbound SKIN: warm and dry, intact, no rashes NEURO: CN II-XII grossly intact, no focal deficits, alert, following commands Objective Labs 02/20/25 05:15 02/20/25 05:15 Labs: Laboratory Results - last 24 hr 02/19/25 04:31 WBC 13.4 H RBC 4.95 Hgb 15.2 Hct 46.5 H MCV 94 MCH 30.7 MCHC 32.7 RDW Std Deviation 56.2 H Plt Count 202 D Neut % (Auto) 77 Lymph % (Auto) 16 Gibson % (Auto) 6 Eos % (Auto) 0 Baso % (Auto) 0 Neut # (Auto) 10.3 H Lymph # (Auto) 2.2 Gibson # (Auto) 0.8 Eos # (Auto) 0.1 Baso # (Auto) 0.0 Immature Gran # (Auto) 0.07 H Absolute Nucleated RBC 0.00 Immature Gran % 1 H Nucleated RBC % 0 Sodium 136 Potassium 5.2 H Chloride 105 Carbon Dioxide 21.2 Anion Gap 10 BUN 50 H Creatinine 2.6 H Estim Creat Clear Calc 26.5 L eGFR 19 L BUN/Creatinine Ratio 19 Glucose 90 Calculated Osmolality 285 Calcium 8.3 Corrected Calcium 9.0 Phosphorus 4.7 Magnesium 2.6 Total Bilirubin 0.5 AST 97 H ALT 33 Alkaline Phosphatase 423 H D Total Protein 5.5 L Albumin 3.1 L Globulin 2.4 Albumin/Globulin Ratio 1.3 TSH 50.12 H* Quality Measures Quality Measures VTE prophylaxis Advance care planning discussed with:: patient Assessment & Plan Assessment Current Active Medications: Generic Name Dose Route Start Last Admin Trade Name Freq PRN Reason Stop Dose Admin Acetaminophen 650 mg 02/17/25 23:41 02/19/25 08:17 Acetaminophen 325 Mg Tablet PO 03/19/25 23:40 650 mg Q6H PRN Administration Fever >100.4 or pain 1-3 Hydrocodone Bitart/Acetaminophen 1 tab 02/17/25 23:41 02/19/25 11:00 Hydrocodone/Apap 5/325 Tablet PO 02/22/25 23:40 1 tab Q4HR PRN Administration PAIN SCALE 4-6 (Moderate Citric Acid/Sodium Citrate 30 ml 02/18/25 12:15 02/19/25 08:18 Citric Acid/Sodium Citr 15 Ml Udc (Bicitra) PO 03/20/25 12:14 30 ml BID RAMON Administration Dextrose 25 ml 02/17/25 21:16 Dextrose 50%-Water Inj 50 Ml Syringe IV 03/19/25 21:15 Q15MIN PRN BG 50-70 responsive npo pt Dextrose 50 ml 02/17/25 21:16 Dextrose 50%-Water Inj 50 Ml Syringe IV 03/19/25 21:15 Q15MIN PRN BG <50 OR BG <70 & pt unresponsive Docusate Sodium 100 mg 02/18/25 09:00 02/19/25 08:18 Docusate Sod 100 Mg Capsule PO 03/20/25 08:59 100 mg QDAY RAMON Administration Protocol Glucagon 1 mg 02/17/25 21:16 Glucagon Inj 1 Mg Vial IM Q15MIN PRN BG <70, and no IV access Heparin Sodium (Porcine) 5,000 unit 02/18/25 09:00 02/19/25 08:13 Heparin Sod Inj 5000 Unit/Ml Vial SC 03/04/25 08:59 5,000 unit Q12HR RAMON Administration Lactated Ringer's 1,000 mls @ 125 mls/hr 02/19/25 08:39 02/19/25 09:29 Lactated Ringers IV 02/20/25 00:38 125 mls/hr .Q8H RAMON Administration Levothyroxine Sodium 112 mcg/ 137 mcg 02/19/25 06:00 02/19/25 05:19 Levothyroxine Sodium 25 mcg PO 03/21/25 05:59 137 mcg ACBR RAMON Administration Ondansetron HCl 4 mg 02/17/25 23:41 02/18/25 04:53 Ondansetron Inj 2 Mg/Ml Inj 2 Ml IVP 03/19/25 23:40 4 mg Q6H PRN Administration NAUSEA OR VOMITING Protocol Pantoprazole Sodium 40 mg 02/18/25 09:00 02/19/25 08:12 Pantoprazole Inj 40 Mg Vial IVP 03/20/25 08:59 40 mg QDAY RAMON Administration Simethicone 80 mg 02/18/25 16:23 Simethicone 80 Mg Chew PO 03/20/25 16:22 QID PRN GAS Tramadol HCl 100 mg 02/18/25 07:31 Tramadol Hcl 50 Mg Tablet PO 02/23/25 07:30 Q6HR PRN pain 7-10 Plan 70-year-old female admitted for hyperkalemia and KADI on CKD, now clinically improving with better strength and abdominal discomfort significantly improved, potassium stable at 5.2. # Hyperkalemia, improving K 7.1 -> 5.7 -> 5.5 after insulin, bicarb, albuterol, Lasix, and 120 Kayexalate. This morning 5.2. No EKG changes. Plan: * Continue telemetry * Repeat BMP in AM * Hold lisinopril * Low-potassium diet * Nephrology following # KADI on CKD (stable) Cr 2.8 -> 2.6. Likely prerenal from poor PO intake + GI illness. No obstruction noted. Plan: * Was on D5 fluids, encouraged patient to oral hydrate. * Strict I/Os, daily weights * Avoid nephrotoxins * Daily BMP * Hold allopurinol and lisinopril # Generalized weakness / functional decline Now bedbound today; reports severe fatigue, dizziness when upright, and inability to ambulate. Likely from dehydration, recent illness, constipation, poor intake, and deconditioning. Plan: * PT to evaluate once abdominal pain stabilizes * Continue hydration # Abdominal pain # Constipation/bloating # Nausea Large stool burden on CT. Had BM after enema but still bloated, gassy, and uncomfortable. Significant nausea despite Reglan, poor PO intake. Plan: * Continue simethicone PRN for gas * Encourage mobility as tolerated * Continue Reglan # Transaminitis # Cirrhosis # MYERS LFTs downtrending CT shows cirrhosis with mild ascites. Plan: * Trend LFTs * Avoid hepatotoxic meds # Incidental bladder-adjacent 14 mm nodule Outpatient follow-up needed. Plan: * Arrange outpatient bladder ultrasound * follow up with PCP # Hypertension Plan: * Continue amlodipine 5 mg * Hold lisinopril due to KADI # Hypothyroidism TSH 50 Plan: * Increase levothyroxine to 150 mcg daily # Chronic back pain Improved with Cubero. Plan: * Cubero PRN only * Add lidocaine patch if needed * Reassess pain daily Health maintenance: Code: Full DVT ppx: Heparin SQ GI ppx: Protonix Diet: Carb consistent, low-potassium Disposition: Telemetry ----- Plan discussed with attending physician Dr. Felix and senior resident Dr. Keith Dean MD PGY-1 Internal Medicine Attending Provider Attestation/Addendum I have discussed and was present for the essential components of the history, physical examination, diagnosis, and treatment plan with the resident. I agree with the patient's care as documented by the resident and amended herein by me. Kieran Felix, DO. Although this document has been carefully reviewed, there may still be some phonetic and other typographical errors. These errors are purely grammatical due to imperfections in the software program and should not be construed in any way to compromise the substance of the patient's medical care during this visit.
--- NOTE | 2025-02-19 13:54 | PC.SS ---
SS met with pt and Dick at to provide SNF choices. Per pt she would like to go to [facility]. SS contacted Nicky at [facility] and updated her. SS sent PT and closed PASRR to Nicky via [employer]. Nicky stated when she gets back into office she will initiate auth.
[2025-02-19 14:00] LABS: Free T4 (Free Thyroxine) 0.83 ng/dL (0.89-1.76)
[2025-02-20] VITALS (8 sets, daily range): BP systolic 96–124; BP diastolic 51–72; PULSE 80–103; RESP 16–21; TEMP 36.2–36.5; O2SAT 94–97
[2025-02-20] MEDS: HYDROcodone/APAP 5/325 TABLET 1 TAB PO (04:56)
[2025-02-20] MEDS: LEVOTHYROXINE SODIUM 125 MCG, LEVOTHYROXINE SODIUM 25 MCG 150 MCG PO (04:59)
[2025-02-20 06:04] LABS: Basophils # (Auto) 0.0 Thou/mm3 (0.0-0.2); Basophils % (Auto) 0 % (0-2.5); Eosinophils # (Auto) 0.1 Thou/mm3 (0.0-0.5); Eosinophils % (Auto) 1 % (0-10); Hematocrit 44.7 % (36.0-46.0); Hemoglobin 14.4 g/dL (12.0-16.0); Immature Granulocytes Auto 0.04 Thou/mm3 (0.00-0.00); Lymphocytes # (Auto) 1.6 Thou/mm3 (1.0-4.8); Lymphocytes % (Auto) 13 % (10-50); Mean Corpuscular HGB Conc 32.2 g/dl (31.0-37.0); Mean Corpuscular Hemoglobin 29.9 pg (25.0-35.0); Mean Corpuscular Volume 93 fL (80-100); Monocytes # (Auto) 0.7 Thou/mm3 (0.0-0.8); Monocytes % (Auto) 6 % (0-12); Neutrophils # (Auto) 9.3 Thou/mm3 (1.8-7.7); Neutrophils % (Auto) 80 % (37-80); Nucleated Red Blood Cell # 0.00 Thou/mm3 (0.00-0.00); Nucleated Red Blood Cell % 0 /100 WBC (0); Platelet Count 204 Thou/mm3 (140-440); RDW Standard Deviation 55.8 fL (36.4-46.3); Red Blood Count 4.81 Miln/mm3 (4.00-5.20); White Blood Count 11.7 Thou/mm3 (3.6-11.0)
[2025-02-20 06:23] LABS: Alanine Aminotransferase 45 U/L (10-49); Albumin, Serum 3.0 gm/dL (3.4-4.8); Albumin/Globulin Ratio 1.3 (1.2-2.2); Anion Gap 9 (7-16); Aspartate Amino Transferase 112 U/L (0-34); BUN/Creatinine Ratio 23 Ratio (12-20); Bilirubin,Total 0.5 mg/dL (0.3-1.2); Blood Urea Nitrogen 54 mg/dL (9-23); Calcium 8.5 mg/dL (8.3-10.6); Calcium (Corrected) 9.3 mg/dL (8.5-10.1); Carbon Dioxide 23.2 mMol/L (20.0-31.0); Chloride 104 mMol/L (98-107); Creatinine (Component) 2.3 mg/dL (0.6-1.3); Estimated Creatinine Clearance 30.4 mL/min (>60); Globulin 2.4 gm/dL (2.3-3.5); Glucose 99 mg/dL (74-106); Magnesium 2.4 mg/dL (1.6-2.6); Osmolality,Calculated 286 (275-295); Phosphorous 4.2 mg/dL (2.4-5.1); Potassium 5.0 mMol/L (3.4-5.1); Sodium 136 mMol/L (136-145); Total Protein 5.4 gm/dL (5.7-8.2); eGFR 23 See Note
[2025-02-20 06:53] LABS: Alkaline Phosphatase 448 U/L (46-116)
[2025-02-20] MEDS: DOCUSATE SOD 100 MG CAPSULE PO (08:16)
[2025-02-20] MEDS: CITRIC ACID/SODIUM CITR 15 ML UDC (BICITRA) 30 ML PO (08:16)
[2025-02-20] MEDS: PANTOPRAZOLE 40 MG TABLET PO (08:16)
[2025-02-20] MEDS: HEPARIN SOD INJ 5000 UNIT/ML VIAL SC (08:16)
--- NOTE | 2025-02-20 09:08 | PD.RESPRO ---
Documentation for date of: 02/20/25 Subjective Subjective Interval history: Patient is a 70-year-old female past medical history significant for primary hypertension, obstructive sleep apnea, MASH with cirrhosis, depression, 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 Patient stated for the past 3 months she had progressively worsening generalized weakness. She was previously able to ambulate independently but this gradually decreased to using a walker and just prior to admission being completely dependent for transfers and mostly bedbound. She attributes this to her L4 compression fracture from June 2024. For the past week she has had poor oral intake due to pain and diarrhea. She follows up with her primary care doctor who recommended cortisone shots, however she has never had spinal orthopedic consultation. Patient also reports a 3-month history of watery diarrhea with more than 5 episodes per day. Denies any nausea/ vomiting. She was diagnosed with Giardia infection on 12/06/2024 and started on metronidazole by infectious disease. Repeat testing on 12/27/2024 was negative for Giardia antigen. Of note patient states that 3 years ago when she lived in [place] she had a rat infestation and was bitten multiple times. However she denies any fever, jaundice or skin lesions. ED Course Summary Vitals: BP 128/87 HR 96 RR18 T 97.5F O2 sat 92% RA Labs: WBC 11.8 Coag (PT 12.4 INR 1.2) Na 134 K 7.1 HCO3 16.3 BUN 53 Cr 2.8 Mg 3.2 AST 75 ALP 404. UA unremarkable Imaging: EKG sinus rhythm HR 86 QTc 427. CTAP cirrhosis, mild to moderate ascites, no obstruction, normal appendix, 2mm nonobstructing right renal calculus, 14 mm noudle at the posterior margin of the urinary bladder, recommend urinary bladder sonography Treatment: albuterol 5mg, insulin regular 10unit, furosemide 40mg IVP, sodium polystyrene sulfonate 30mg, sodium bicarbonate 100ml, dextrose 50mL, Calcium chloride 10ml, morphine sulfate 4mg, NaCl 250ml, Protonix 40mg, zofran 4mg IVP Patient was admitted to the floor for generalized weakness. Nephrology was consulted for hyperkalemia. 02/19/2025: Patient seen and examined at bedside. Patient endorses dysuria and uncomfortable Sanchez catheter, however states overall improvement in weakness. Exchange sanchez to purewick. Urine output 1.4L. Hyperkalemia improved 5.2 today, likely 2/2 acidotic state. Cr improving at 2.6, however BL 1.4-1.5. Continue Bicitra and start gentle IVF. 02/20/2025: Patient seen and examined at bedside. Reports resolution of dysuria with purewick and urine is very concentrated. Reports back pain as patient was recently changed, requiring laying on side which exacerbates back pain. K 5.0, Cr downtrending 2.3, BUN stable elevated 54. Continue Bicitra and can start further gentle IVF. Had two small formed bowel movements this morning, endorses constipation and bloating, preventing her from eating. Exam Vital Signs Temp Pulse Resp BP Pulse Ox O2 Del Method O2 Flow Rate 97.5 F 85 18 124/72 97 CPAP 2 02/20/25 07:26 02/20/25 04:00 02/20/25 07:26 02/20/25 07:26 02/20/25 07:26 02/20/25 07:26 02/19/25 07:13 FiO2 30 02/18/25 18:51 Narrative Exam GENERAL: AOx3, no acute distress HEENT: mucous membranes dry, bilateral sclera anicteric CARDIOVASCULAR: regular rate and rhythm, S1/S2 present, no murmurs appreciated PULMONARY: clear to auscultation bilaterally, no rales/rhonchi/wheezes ABDOMINAL: soft, distended, mildly tender to deep palpation, rectus sheath diastases, no rebound/guarding, bowel sounds present EXTREMITIES: no BLE edema, bedbound SKIN: warm and dry, intact, no rashes NEURO: CN II-XII grossly intact, no focal deficits, alert, following commands Objective Labs 02/20/25 05:15 02/20/25 05:15 Labs: Laboratory Results - last 24 hr 02/19/25 02/20/25 04:31 05:15 WBC 11.7 H RBC 4.81 Hgb 14.4 Hct 44.7 MCV 93 MCH 29.9 MCHC 32.2 RDW Std Deviation 55.8 H Plt Count 204 Neut % (Auto) 80 Lymph % (Auto) 13 [place] % (Auto) 6 Eos % (Auto) 1 Baso % (Auto) 0 Neut # (Auto) 9.3 H Lymph # (Auto) 1.6 [place] # (Auto) 0.7 Eos # (Auto) 0.1 Baso # (Auto) 0.0 Immature Gran # (Auto) 0.04 H Absolute Nucleated RBC 0.00 Immature Gran % 0 Nucleated RBC % 0 Sodium 136 Potassium 5.0 Chloride 104 Carbon Dioxide 23.2 Anion Gap 9 BUN 54 H Creatinine 2.3 H Estim Creat Clear Calc 30.4 L eGFR 23 L BUN/Creatinine Ratio 23 H Glucose 99 Calculated Osmolality 286 Calcium 8.5 Corrected Calcium 9.3 Phosphorus 4.2 Magnesium 2.4 Total Bilirubin 0.5 AST 112 H ALT 45 Alkaline Phosphatase 448 H D Total Protein 5.4 L Albumin 3.0 L Globulin 2.4 Albumin/Globulin Ratio 1.3 TSH 50.12 H* Free T4 0.83 L Quality Measures Quality Measures VTE prophylaxis Advance care planning discussed with:: patient Assessment & Plan Assessment Current Active Medications: Generic Name Dose Route Start Last Admin Trade Name Freq PRN Reason Stop Dose Admin Citric Acid/Sodium Citrate 30 ml 02/18/25 12:15 02/20/25 08:16 Citric Acid/Sodium Citr 15 Ml Udc (Bicitra) PO 03/20/25 12:14 30 ml BID RAMON Administration Dextrose 25 ml 02/17/25 21:16 Dextrose 50%-Water Inj 50 Ml Syringe IV 03/19/25 21:15 Q15MIN PRN BG 50-70 responsive npo pt Dextrose 50 ml 02/17/25 21:16 Dextrose 50%-Water Inj 50 Ml Syringe IV 03/19/25 21:15 Q15MIN PRN BG <50 OR BG <70 & pt unresponsive Docusate Sodium 100 mg 02/18/25 09:00 02/20/25 08:16 Docusate Sod 100 Mg Capsule PO 03/20/25 08:59 100 mg QDAY RAMON Administration Protocol Glucagon 1 mg 02/17/25 21:16 Glucagon Inj 1 Mg Vial IM Q15MIN PRN BG <70, and no IV access Heparin Sodium (Porcine) 5,000 unit 02/18/25 09:00 02/20/25 08:16 Heparin Sod Inj 5000 Unit/Ml Vial SC 03/04/25 08:59 5,000 unit Q12HR RAMON Administration Levothyroxine Sodium 125 mcg/ 150 mcg 02/20/25 06:00 02/20/25 04:59 Levothyroxine Sodium 25 mcg PO 03/22/25 05:59 150 mcg ACBR RAMON Administration Ondansetron HCl 4 mg 02/17/25 23:41 02/18/25 04:53 Ondansetron Inj 2 Mg/Ml Inj 2 Ml IVP 03/19/25 23:40 4 mg Q6H PRN Administration NAUSEA OR VOMITING Protocol Pantoprazole Sodium 40 mg 02/20/25 09:00 02/20/25 08:16 Pantoprazole 40 Mg Tablet PO 03/22/25 08:59 40 mg QDAY RAMON Administration Simethicone 80 mg 02/18/25 16:23 Simethicone 80 Mg Chew PO 03/20/25 16:22 QID PRN GAS Tramadol HCl 100 mg 02/20/25 08:15 Tramadol Hcl 50 Mg Tablet PO 02/23/25 07:30 Q6HR PRN pain 6-10 Plan Patient is a 70-year-old female past medical history significant for primary hypertension, obstructive sleep apnea, [facility] with cirrhosis, depression, 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 Patient was admitted to the floor for generalized weakness. Nephrology was consulted for hyperkalemia. Acute kidney injury on CKD stage IIIb Hyperkalemia, resolved Hyperphosphatemia, resolved Hypomagnesemia, resolved Non-anion gap metabolic acidosis, resolved Patient presented with diarrhea x 3 weeks and reduced p.o. intake x 1 week. DDx: Lisinopril side effect, metabolic acidosis, KADI Baseline CR between 1.5?1.4. On admission CR 2.8 On admission K7.1??>5.5-> now 5.0. Phosphorus 6. Bicarbonate 17 FeNa 1.1%, possibly prerenal vs intrinsic. However Cr continues to improve with fluids. CT abdomen pelvis this admission showed no signs of hydronephrosis and a 2 mm nonobstructing right renal calculi Renal US showed diminutive b/l kidneys with cortical thinning and increased echogenicity (R 6.9cm, L 8.5 cm), cirrhotic liver with hypoechoic lesions, moderate ascities, nonvisualization of bladder Plan: ? Encourage p.o. intake ? Renally dose medication and avoid nephrotoxic agents ? Recommend to discontinue lisinopril upon discharge ? Bicitra 30 mL p.o. twice daily - Recommend further gentle IVF MASH with cirrhosis Transaminitis History of Giardia infection Diarrhea Pulmonary nodule Subacute L4 compression fracture Obstructive sleep apnea Primary hypertension Hypothyroidism Hypoalbuminemia Plan: ? Continue care as per primary team Thank you for the opportunity to participate in the care of Mrs. Poe Plan of care discussed with Attending Dr. Catherine Paez, DO Internal Medicine PGY-1 Attending Provider Attestation/Addendum Patient currently seen and examined with resident physician Dr. Paez. Note reviewed, agree with findings and recommendations. Patient currently seen in medical floor. Clinically stable.
--- NOTE | 2025-02-20 10:23 | PD.RESDS ---
Planned Discharge Date 02/20/25 DS: Providers Provider Date of admission: 02/17/25 23:36 Primary care physician: Tona Metz MD Admitting Provider: Maci Toledo MD Attending Provider on Admission: Jerel Jang MD Consults: 02/17/25 23:46 Consult to Nephrology Stat Comment: K 7.2 on admission Consulting Provider: Tushar Alexander 02/17/25 23:50 Referral Physical Therapy Routine Comment: Physician Instructions: 02/18/25 01:48 Referral Registered Dietitian Routine Comment: 02/18/25 02:50 [facility] [employer] Referral - Knowledge Deficit Routine Comment: Positive screening for knowledge deficit needs. Attending Provider on DC: Jerel Jang MD Discharging Provider: Radha Dean MD DS: Diagnosis Problem List Completed Was Problem List Reviewed/Reconciled?: Yes Hospital Course Hospital Course Hospital course: 70-year-old female with a history of chronic kidney disease (CKD), cirrhosis, hypothyroidism, recent giardia infection, and chronic back pain, was admitted with severe hyperkalemia (K 7.1), KADI, and generalized weakness. She was treated with IV fluids, Kayexalate, insulin/dextrose, and albuterol for hyperkalemia, resulting in improvement to 5.0 today. Her creatinine improved from 2.8 -> 2.3, and BUN down to 54. She also received treatment for constipation with enemas and stool softeners, with two bowel movements reported today. Her LFTs were elevated, with AST 112 and alk phos 448, likely related to hepatotoxicity from [place] and acetaminophen, which were held during hospitalization. Her TSH was elevated to 50, with a low T4, so levothyroxine was increased to 150 mcg daily. Patient showed significant improvement in weakness and is clinically stable for discharge. She was cleared for rehab placement, which has been authorized by insurance. The patient was informed of the plan, and she agreed to proceed with rehabilitation. Diagnosis during admission: #Hyperkalemia, improving #KADI on CKD (stable) #Generalized weakness/functional decline #Abdominal pain #Constipation #Nausea #Transaminitis #Cirrhosis #MYERS #Incidental bladder adjacent 14 mm nodule #Hypertension #Hypothyroidism #Chronic back pain Discharge Instructions: -Continue short-term low-dose 5 of Percocet for pain, less hepatotoxic than hydrocodone. -Continue levothyroxine 150 mcg daily, increased from 137 previously. -Continue amlodipine 5 mg daily. -Continue Colace daily, MiraLAX PRN, and simethicone PRN for bloating and constipation. -Do NOT take Tylenol, [place], tramadol, or any NSAIDs (liver/kidney risk). -Hold lisinopril until cleared by PCP/nephrology. -Hold allopurinol until renal function improves. -Follow a low-potassium, low-salt diet. -Continue pantoprazole 40 mg daily. -Return to ER for severe abdominal pain, vomiting, confusion, fever, or breathing difficulty. -Follow up with PCP and nephrology within 1 week. -Repeat BMP, LFTs, and thyroid labs in 1 week. -Complete outpatient bladder and pelvic ultrasound as recommended. ----- Plan discussed with attending physician Dr. Suhail Dean MD PGY-1 Internal Medicine Time Spent with Patient Time attestation: Total time spent providing and/or coordinating discharge services: Time spent: Greater than 30 minutes Quality: Stroke Pt Provided Written Stroke Discharge Instructions: No Exam Vital Signs Temp Pulse Resp BP Pulse Ox O2 Del Method O2 Flow Rate 97.5 F 85 18 124/72 97 CPAP 2 02/20/25 07:26 02/20/25 04:00 02/20/25 07:26 02/20/25 07:26 02/20/25 07:26 02/20/25 07:26 02/19/25 07:13 FiO2 30 02/18/25 18:51 Narrative Exam GENERAL: AOx3, no acute distress HEENT: mucous membranes dry, bilateral sclera anicteric CARDIOVASCULAR: regular rate and rhythm, S1/S2 present, no murmurs appreciated PULMONARY: clear to auscultation bilaterally, no rales/rhonchi/wheezes ABDOMINAL: soft, distended, mildly tender to deep palpation, rectus sheath diastases, no rebound/guarding, bowel sounds present EXTREMITIES: no BLE edema, bedbound SKIN: warm and dry, intact, no rashes NEURO: CN II-XII grossly intact, no focal deficits, alert, following commands Discharge Plan Plan Patient Disposition: Xfer Skilled Nsg Fac (SNF) Care Plan Goals: Discharge Instructions: -Continue short-term low-dose 5 of Percocet for pain, less hepatotoxic than hydrocodone. -Continue levothyroxine 150 mcg daily, increased from 137 previously. -Continue amlodipine 5 mg daily. -Continue Colace daily, MiraLAX PRN, and simethicone PRN for bloating and constipation. -Do NOT take Tylenol, [place], tramadol, or any NSAIDs (liver/kidney risk). -Hold lisinopril until cleared by PCP/nephrology. -Hold allopurinol until renal function improves. -Follow a low-potassium, low-salt diet. -Continue pantoprazole 40 mg daily. -Return to ER for severe abdominal pain, vomiting, confusion, fever, or breathing difficulty. -Follow up with PCP and nephrology within 1 week. -Repeat BMP, LFTs, and thyroid labs in 1 week. -Complete outpatient bladder and pelvic ultrasound as recommended. Prescriptions/Referrals Prescriptions/Med Rec: New simethicone 80 mg Tablet,Chewable 80 mg PO QID PRN (Reason: Gas) 30 Days Qty: 120 0RF pantoprazole 40 mg Tablet,Delayed Release (Dr/Ec) 40 mg PO QDAY 30 Days Qty: 30 0RF docusate sodium 100 mg Capsule 100 mg PO QDAY PRN (Reason: constipation) Qty: 60 0RF oxycodone-acetaminophen 5-325 mg tablet 1 tab PO Q8H MDD 15 mg-975 mg PRN (Reason: pain) 30 Days Qty: 90 0RF Continued bisacodyl 5 mg tablet 5 mg PO QDAY PRN (Reason: constipation) Qty: 10 0RF amitriptyline 25 mg tablet 25 mg PO DAILY amlodipine 5 mg tablet 5 mg PO DAILY Changed levothyroxine 137 mcg tablet 150 mcg PO DAILY 30 Days Qty: 33 0RF polyethylene glycol 3350 [Miralax] 17 gram/dose powder 17 g PO QDAY Qty: 476 0RF Rx Instructions: May take 1 dose 3 times daily for the next 2 days, then twice daily for the 2 days after that, then once daily thereafter as needed for constipation. Held allopurinol 100 mg tablet 100 mg PO DAILY Hold Instructions: Resume on 03/06/25. hold until pcp f/u held due to kadi resume once cr improves Discontinued lisinopril 20 mg tablet 20 mg PO DAILY acetaminophen-codeine 300-60 mg tablet 1 tab PO Q6H PRN (Reason: pain (scale score 7-10)) Patient Comments: TAKE 1 TABLET BY MOUTH EVERY 6 HOURS NEEDED triamterene-hydrochlorothiazid 75-50 mg tablet 1 tab PO DAILY Patient Comments: TAKE 1 TABLET BY MOUTH DAILY Referrals: Tona Metz MD [Primary Care Provider, Family Practice] Patient/Caregiver Discharge Instructions Education Materials: Common Thyroid Problems, Acute Kidney Failure Dc, ED Chronic Kidney Disease (CKD), ED Cirrhosis, ED Hyperkalemia, ED High Blood Pressure ... Print Language: Bengali Stand Alone Forms: [employer] Award Info., Patient Portal Info Letter Discharge Order Discharge Orders: Discharge (Routine); Ordered 02/20/25 Ordered By: Radha Dean Quality Discharge Quality Measures VTE prophylaxis MD Attestestation MD Attestation I have examined the patient, reviewed labs and imaging findings, discussed the case with the resident(s), and reviewed entered orders. I agree with the plan of care as outlined in this note. Time Spent: [address] Suhail MD
--- NOTE | 2025-02-20 11:09 | PC.SS ---
SS has spoken to Nicky from [facility] who states they have obtained insurance authorization. SS has met with physician residents and pt is possible d/c today. SS has setup gurney transportation with [facility] [employer]. Pt is unable to pay privately for transportation. Transportation has been setup for 6:30pm to [facility]. SS has been informed by bedside nurse pt is requiring a [employer] Brace and possibly will arrive today.
[2025-02-20 12:40] LABS: Parathyroid Hormone Intact 199.4 pg/ml (18.5-88.0)
[2025-02-26 07:03] LABS: Osmolality, Urine* 370 mOsm/kg (50-1200)
== END 2025-02-20 18:57 | disposition skilled nursing facility (03) | DRG 641 ==
LOC: SERX 21:52 → SERHOLD 02-18 00:20 → S3NX 02-19 06:08
PROVIDERS: Admitting Provider Student in an Organized Health Care Education/Training Program; Emergency Provider Emergency Medicine; PCP Family Medicine; Visit Provider Student in an Organized Health Care Education/Training Program
DX: E87.5 Hyperkalemia (principal); N17.9 Acute kidney failure, unspecified; M48.56XA Collapsed vertebra, not elsewhere classified, lumbar region, initial encounter for fracture; R18.8 Other ascites; I12.9 Hypertensive chronic kidney disease with stage 1 through stage 4 chronic kidney disease, or unspecified chronic kidney disease; G47.33 Obstructive sleep apnea (adult) (pediatric); E03.9 Hypothyroidism, unspecified; F32.A Depression, unspecified; R91.8 Other nonspecific abnormal finding of lung field; K59.00 Constipation, unspecified; K74.60 Unspecified cirrhosis of liver; E86.0 Dehydration; G89.29 Other chronic pain; N20.0 Calculus of kidney; N18.32 Chronic kidney disease, stage 3b; E83.39 Other disorders of phosphorus metabolism; E83.42 Hypomagnesemia; R53.81 Other malaise; K76.0 Fatty (change of) liver, not elsewhere classified; E87.20 Acidosis, unspecified; R91.1 Solitary pulmonary nodule; E88.09 Other disorders of plasma-protein metabolism, not elsewhere classified; Z74.01 Bed confinement status; Z79.890 Hormone replacement therapy; Z90.710 Acquired absence of both cervix and uterus; Z79.899 Other long term (current) drug therapy
CPT/HCPCS: 36415; 51702; 74176; 76770; 80048; 80053; 81001; 82150; 82436; 82570; 83605; 83690; 83735; 83935; 83970; 84100; 84133; 84300; 84439; 84443; 85025; 85610; 87177; 87209; 93005; 93225; 94640; 94660; 94762; 96374; 96375; 96376; 97163; 99285; A4314; J1644; J1815; J1938; J2270; J2405; J2470; J2765; J7030; J7050; J7070; J7120; A9270

== ENCOUNTER 2025-03-01 07:50 | Inpatient (IN) | payer MEDICARE, SELFPAY ==
[2025-03-01] VITALS (120 sets, daily range): BP systolic 68–150; BP diastolic 33–99; PULSE 68–105; RESP 0–88; TEMP 35.6–36.4; O2SAT 90–100; BMI 45.9
--- NOTE | 2025-03-01 | XR_ITS ---
Ultrasound-guided needle placement right internal jugular vein Temporary dialysis catheter insertion, percutaneous Fluoroscopy AP chest, portable, single view. Date and time of procedure: March 01, 2025, 1434 hours INDICATIONS: Renal failure, need for stat dialysis today Informed consent provided Technique: A timeout was completed verifying correct patient, procedure, site, positioning, and special equipment if applicable. The patient was placed in a dependent position appropriate for dialysis catheter placement based on the vein to be cannulated. The patient's right neck was prepped and draped in sterile fashion. Maximum Sterile Barrier Technique used including cap, mask, sterile gown, sterile gloves, and sterile full body drape. If ultrasound technique used: sterile gel and sterile probe covers. Hand Hygiene performed using proper scrub, soap and water, or alcohol-based hand rub. 1% lidocaine was used to anesthetize the surrounding skin area The [employer] portable ultrasound apparatus utilized to confirm patency of the right internal jugular vein Utilizing ultrasonographic guidance successful 21-gauge needle puncture into the right internal jugular vein Ultrasound images were recorded and stored. Vessel micropuncture was performed with 21-gauge needle. 0.18 wire guide is introduced into the vein. 0.18 wire is introduced into the vena cava under fluoroscopy. Temporary dialysis catheter 20 cm placed over the wire guidance into the superior vena cava in satisfactory position The catheter is sutured in place to the skin and a sterile dressing applied. Perfusion to the extremity distal to the point of catheter insertion is checked and found to be adequate Attending radiologist was present for the entire procedure Estimated blood loss 2 cc. The patient tolerated the procedure well and there were no complications Impression: Successful ultrasound-guided needle placement right internal jugular vein Temporary tunneled dialysis catheter insertion, percutaneous Fluoroscopy 0.2-minute radiation dose 8.35 mGy. AP chest performed at completion procedure demonstrates satisfactory position dialysis catheter. May use dialysis catheter.
--- NOTE | 2025-03-01 08:02 | EKG_ITS ---
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
--- NOTE | 2025-03-01 08:33 | XR_ITS ---
Examination: CT brain head without contrast. 2-D sagittal coronal reconstructions Date and time of exam: March 01, 2025, 0840 hours INDICATIONS: Stroke alert, onset focal neurologic deficit beginning 5:00 a.m. CTDI: vol (mGy): 59.1 DLP: (mGycm): 1228 Technique: Multiple CT axial sections of the brain have been obtained, 5 mm slice thickness. Contrast has not been administered. 2-D sagittal, coronal reconstructions have been obtained Low dose protocols were performed. One or more of the following dose reduction techniques were used; automated exposure control, adjustment of the mA and/or KV according to patient size, use of iterative reconstruction technique. Findings: No significant ventricular enlargement. Intra-axial or extra-axial hemorrhage density is not seen. No mass effect or midline shift Basal cisterns are not remarkable. Fourth ventricle is midline. Cranial vault intact. Impression: Negative for acute hemorrhage, mass effect or midline shift
--- NOTE | 2025-03-01 08:33 | XR_ITS ---
Examination: CTA carotids with intravenous contrast CTA brain, head with intravenous contrast. 2-D sagittal, coronal reconstructions. 3-D reconstructions. Exam date and time: March 01, 2025, 0845 hours INDICATIONS: Stroke alert, onset focal neurologic deficit today CTDI: vol (mGy) 51.7 DLP: (mGycm) 145 Technique: Multiple CTA axial brain, head carotid images post intravenous contrast injection 75 cc, [id number]. 2-D sagittal, coronal reconstructions. 3-D reconstructions, 3-D post processing including vascular maximum intensity projection images. Low dose protocols were performed. One or more of the following dose reduction techniques were used; automated exposure control, adjustment of the mA and/or KV according to patient size, use of iterative reconstruction technique. Findings: Patchy parenchymal disease in the right upper lobe No significant common carotid carotid bifurcation or internal carotid artery stenoses Dominant left vertebral artery with no critical stenoses No cerebral large vessel arterial occlusions or thrombus IMPRESSION: Parenchymal disease in the right upper lobe No significant neck arterial stenoses No cerebral large vessel arterial occlusions or thrombus
[2025-03-01 08:47] LABS: Basophils # (Auto) 0.0 Thou/mm3 (0.0-0.2); Basophils % (Auto) 0 % (0-2.5); Eosinophils # (Auto) 0.0 Thou/mm3 (0.0-0.5); Eosinophils % (Auto) 0 % (0-10); Hematocrit 45.3 % (36.0-46.0); Hemoglobin 15.1 g/dL (12.0-16.0); Immature Granulocytes Auto 0.11 Thou/mm3 (0.00-0.00); Lymphocytes # (Auto) 1.6 Thou/mm3 (1.0-4.8); Lymphocytes % (Auto) 8 % (10-50); Mean Corpuscular HGB Conc 33.3 g/dl (31.0-37.0); Mean Corpuscular Hemoglobin 31.3 pg (25.0-35.0); Mean Corpuscular Volume 94 fL (80-100); Monocytes # (Auto) 0.8 Thou/mm3 (0.0-0.8); Monocytes % (Auto) 4 % (0-12); Neutrophils # (Auto) 16.5 Thou/mm3 (1.8-7.7); Neutrophils % (Auto) 87 % (37-80); Nucleated Red Blood Cell # 0.00 Thou/mm3 (0.00-0.00); Nucleated Red Blood Cell % 0 /100 WBC (0); Platelet Count 260 Thou/mm3 (140-440); RDW Standard Deviation 58.4 fL (36.4-46.3); Red Blood Count 4.82 Miln/mm3 (4.00-5.20); White Blood Count 18.9 Thou/mm3 (3.6-11.0)
[2025-03-01 08:57] LABS: Amphetamine/Methamp Scrn,U Negative (Negative); Barbiturate Screen,Urine Negative (Negative); Benzodiazepines Screen,Urine Negative (Negative); Benzoylecgonine Screen, Ur Negative (Negative); Fentanyl Screen,Urine Negative (Negative); Opiate Screen,Urine Positive (Negative); THC Screen,Urine Positive (Negative)
[2025-03-01 09:11] LABS: Base Excess -5 (-3-3); HCO3 20 mEq/L (20-26); Inspired O2, VO2 Liters 6 L/min; O2 Saturation 99 % (91-98); PCO2 34 mmHg (32.0-48.0); PO2 99 mmHg (83-108); pH, Arterial 7.37 (7.35-7.45)
[2025-03-01 09:13] LABS: Allen Test Performed/OK; Puncture Site Right Radial
[2025-03-01 09:13] LABS: INR 1.6 (0.9-1.3); Partial Thromboplastin Time 34.5 Seconds (22.0-36.0); Prothrombin Time 16.1 Seconds (9.0-12.2)
--- NOTE | 2025-03-01 09:17 | PD.TNEURO ---
Tele Neuro Consultation Consultation Date 03/01/25 Most Recent Vital Signs Last Vital Signs Temp 97.6 F 03/01/25 08:13 Pulse 90 03/01/25 08:23 Resp 22 H 03/01/25 08:23 BP 87/60 L 03/01/25 08:13 Pulse Ox 96 03/01/25 08:23 O2 Del Method Nasal Cannula 03/01/25 08:13 O2 Flow Rate 2 03/01/25 08:23 Consultation Narrative [facility] Patient Name:???KOMAL GARCIA Date of :???1955 Date of Service:???03/01/2025 08:37:15 Diagnosis:?R41.82 - Altered mental status, unspecified Impression: ?Pt with hx of cirrhosis, bladder mass, HTN, L spine fracture (On chronic opioid Oxy q4) presenting with AMS LKN last night. NIHSS of 18. Head CT w/o acute intracranial abnormalities, CTA w/o LVO on personal review. Picture concerning for metabolic/toxic/infectious encephalopathy. Others to consider also includes multifocal CVA contributing to encephalopathy. ? ?Recommendations: ?1. Continue infectious,toxic.metabolic workup ?2. Brain MRI w/o ?3. Permissive hypertension up to 220 systolic and 110 diastolic until acute ischemia is ruled out. ??? Sign Out: ? Discussed with Emergency Department Provider Advanced Imaging:Advanced imaging has been ordered. Results pending. Metrics: Last Known Well: 02/28/2025 22:00:44 Arrival Time: 03/01/2025 08:42:59 Activation Time: 03/01/2025 08:37:15 Initial Response Time: 03/01/2025 08:43:38Symptoms: AMS. Initial patient interaction: 03/01/2025 08:50:21 NIHSS Assessment Completed: 03/01/2025 08:55:09Patient is not a candidate for Thrombolytic. Thrombolytic Medical Decision: 03/01/2025 08:55:10Patient was not deemed candidate for Thrombolytic because of following reasons: LKW outside 4.[address] Head: I personally reviewed all the CT images that were available to me and it showed: no acute intracranial abnormalities Primary Provider Notified of Diagnostic Impression and Management Plan on: 03/01/2025 09:12:54 History of Present Illness:Patient is a 70 year old Female. Patient was brought by EMS for symptoms of AMS. Pt with hx of cirrhosis, bladder mass, HTN, L spine fracture(On chronic opioid Oxy q4) presenting with AMS. Pt was last seen at baseline last night around 10:00 PM. This morning she was noticed to be more encephalopathic at 5:00 AM by nursing staff, gradually getting worse. Pt only yelling help , uncortable. ? Past Medical History: ?Hypertension Medications: No Anticoagulant use? No Antiplatelet use Reviewed EMR for current medications Allergies:? Reviewed Social History: Patient Is: Smoking: No Alcohol Use: No Drug Use: No Family History: There is no family history of premature cerebrovascular disease pertinent to this consultation ROS : 14 Points Review of Systems was performed and was negative except mentioned in HPI. Past Surgical History: There Is No Surgical History Contributory To Today?s Visit ? Examination: BP(84//61),?Pulse(89),?Blood Glucose(83) 1A: Level of Consciousness - Alert; keenly responsive?+ 0 1B: Ask Month and Age - 1 Question Right?+ 1 1C: Blink Eyes & Squeeze Hands - Performs 0 Tasks?+ 2 2: Test Horizontal Extraocular Movements - Normal?+ 0 3: Test Visual Flores - No Visual Loss?+ 0 4: Test Facial Palsy (Use Grimace if Obtunded) - Normal symmetry?+ 0 5A: Test Left Arm Motor Drift - No Movement?+ 4 5B: Test Right Arm Motor Drift - Drift, hits bed?+ 2 6A: Test Left Leg Motor Drift - No Effort Against [place]?+ 3 6B: Test Right Leg Motor Drift - No Effort Against [place]?+ 3 7: Test Limb Ataxia (FNF/Heel-Reddy) - No Ataxia?+ 0 8: Test Sensation - Normal; No sensory loss?+ 0 9: Test Language/Aphasia - Mute/Global Aphasia: No Usable Speech/Auditory Comprehension?+ 3 10: Test Dysarthria - Normal?+ 0 11: Test Extinction/Inattention - No abnormality?+ 0 NIHSS Score:?18 Pre-Morbid Modified Vanda Scale: 4 Points = Moderately severe disability; unable to walk and attend to bodily needs without assistance Spoke with :?ED provider This consult was conducted in real time using interactive audio and video technology. Patient was informed of the technology being used for this visit and agreed to proceed. Patient located in hospital and provider located at home/office setting. Patient is being evaluated for possible acute neurologic impairment and high probability of imminent or life-threatening deterioration. I spent total of 35 minutes providing care to this patient, including time for face to face visit via telemedicine, review of medical records, imaging studies and discussion of findings with providers, the patient and/or family. Dr Lianet Gaxiola [facility] For Inpatient follow-up with [facility] physician please call [facility] at . As we are not an outpatient service for any post hospital discharge needs please contact the hospital for assistance. If you have any questions for the [facility] physicians or need to reconsult for clinical or diagnostic changes please contact us via [facility] at . Non-radiologist review of imaging performed to assist with emergent clinical decision-making. Remote physician workstations do not possess the same resolution, calibration, or diagnostic capabilities as hospital-based radiology reading stations, and formal radiologist read is necessary. Signature :Mariangel Gaxiola ?
[2025-03-01 09:18] LABS: Acetaminophen 6.7 mcg/mL (10.0-20.0); Alanine Aminotransferase 47 U/L (10-49); Albumin, Serum 2.8 gm/dL (3.4-4.8); Albumin/Globulin Ratio 0.9 (1.2-2.2); Alcohol, Blood Medical < 3.0 mg/dL (0-10.0); Alkaline Phosphatase 483 U/L (46-116); Anion Gap 13 (7-16); Aspartate Amino Transferase 124 U/L (0-34); BUN/Creatinine Ratio 28 Ratio (12-20); Bilirubin,Total 1.6 mg/dL (0.3-1.2); Blood Urea Nitrogen 102 mg/dL (9-23); Calcium 8.2 mg/dL (8.3-10.6); Calcium (Corrected) 9.2 mg/dL (8.5-10.1); Carbon Dioxide 19.0 mMol/L (20.0-31.0); Chloride 98 mMol/L (98-107); Creatinine (Component) 3.7 mg/dL (0.6-1.3); Estimated Creatinine Clearance 19.4 mL/min (>60); Globulin 3.0 gm/dL (2.3-3.5); Glucose 72 mg/dL (74-106); Magnesium 3.2 mg/dL (1.6-2.6); Osmolality,Calculated 291 (275-295); Salicylate < 3.0 mg/dL; Sodium 130 mMol/L (136-145); Thyroid Stimulating Hormone 8.58 uIU/mL (0.55-4.78); Total Protein 5.8 gm/dL (5.7-8.2); Troponin I 0.034 ng/mL (0.0-0.045); eGFR 13 See Note
[2025-03-01] MEDS: RINGERS LACTATED 1710 ML IV (09:21)
[2025-03-01 09:29] LABS: Collection Type, Urine Catheter
[2025-03-01 09:35] LABS: Potassium 7.7 mMol/L (3.4-5.1)
[2025-03-01 09:47] LABS: Bacteria,Urine 3+; Bilirubin,Urine Negative (Negative); Blood,Urine Trace (Negative); Color,Urine Yellow (Lt Yel-Yel); Culture Indicated,Urine Contaminated; Glucose, Urine Negative (Negative); Hyaline Casts,Urine 1 /hpf (0-1); Ketones,Urine Negative (Negative); Leukocyte Esterase,Urine Positive (Negative); Nitrite,Urine Negative (Negative); PH,Urine 5.5 (5.0-7.0); Protein,Urine Negative (Neg - Trace); RBC,Urine 2 /hpf (0-3); Specific Gravity,Urine 1.018 (1.001-1.035); Squamous Epithelial Cell,Urine 15 /hpf (0-5); Urobilinogen,Urine Negative mg/dL (0.0-1.0); WBC,Urine 157 /hpf (0-5)
[2025-03-01] MEDS: INSULIN HUM REGULAR 1 UNIT/0.01 ML (PER UNIT) 10 UNIT IV (09:53)
[2025-03-01] MEDS: SODIUM BICARB INJ 8.4% 1 mEq/ML 50 ML VIAL 50 MEQ IV ×2 (09:53→13:41)
[2025-03-01] MEDS: CALCIUM CHLORIDE 10% INJ 10 ML SYRG IV ×3 (09:53→13:38)
[2025-03-01] MEDS: DEXTROSE 50%-WATER INJ 50 ML SYRINGE IVP ×3 (09:54→13:49)
--- NOTE | 2025-03-01 10:09 | PC.SS ---
SS attempted to meet with patient at bedside, however patient appeared altered. SS attempted to contact patient's , Dick Poe however did not answer. SS left VM with SS contact number.
[2025-03-01 10:11] LABS: Clarity,Urine Hazy (Clear/Hazy)
[2025-03-01 10:32] LABS: Ammonia 178 uMol/L (11-32)
--- NOTE | 2025-03-01 11:03 | EDNOTE_ITS ---
Altered Mental Status RME/HPI General Chief Complaint: Altered Mental Status Stated Complaint: ALTERED Time Seen by Provider: 03/01/25 08:14 Arrival date/time: 03/01/25 07:50 Limitations: no limitations RME / HPI RME / HPI narrative: 70 year old female with history of hypertension, hypothyroidism, liver cirrohsis, chronic back pain 2./2 lumbar spine fracture presents to the ED BIB from [facility] for evaluation of altered mental status today. Per medics, [place] staff reported finding the patient moaning and yelling help though not answering any questions appropriately. Patient was last known well at 21:00h last night. No further history obtainable from the patient. Prehospital BG 108, BP 144/102, HR 74, saturating 94% on nasal cannula. Related Data Home Medications ?Medication ?Instructions ?Recorded ?Confirmed allopurinol 100 mg tablet 100 mg PO DAILY 12/04/24 Held on 02/20/25. Instructions: Resume on 03/06/25. hold until pcp f/u held due to alban resume once cr improves amitriptyline 25 mg tablet 25 mg PO DAILY 12/04/24 amlodipine 5 mg tablet 5 mg PO DAILY 12/04/2402/18 Previous Rx's ?Medication ?Instructions ?Recorded bisacodyl 5 mg tablet 5 mg PO QDAY PRN constipatio n #10 01/07/25 tabs docusate sodium 100 mg capsule 100 mg PO QDAY PRN cons tipation 02/20/25 #60 caps levothyroxine 137 mcg tablet 150 mcg (1.0949 x 137 mcg ) PO 02/20/25 DAILY 30 days #33 tabs oxycodone-acetaminophen 5 mg-325 1 tab PO Q8H PRN pain 30 days #90 02/20/25 mg tablet tabs pantoprazole 40 mg tablet,delayed 40 mg PO QDAY 30 day s #30 tabs 02/20/25 release polyethylene glycol 3350 17 17 g PO QDAY #476 grams gram/dose oral powder (Miralax) simethicone 80 mg chewable tablet 80 mg PO QID PRN Gas 1 month #120 02/20/25 tabs Allergies Allergy/AdvReac Type Severity Reaction Status Date / Time No Known Allergies Allergy Verified 12/07/24 14:34 Review of Systems Review of Systems ROS Unobtainable: unobtainable due to mental status Past Medical History Past Medical History CARDIAC: Positive Hypertension GASTROINTESTINAL: Positive Gastrointestinal Disorders MUSCULOSKELETAL: Positive Arthritis and Gout ENDOCRINE: Positive Endocrine Disorders and Hypothyroidism Surgical History SURGICAL: Positive Abdominal Surgery, Joint Replacement and Hysterectomy Social History SMOKING STATUS: Never smoker SECOND HAND EXPOSURE: No SUBSTANCE USE: does not use ED Exam General Limitations: Present no limitations General appearance: Present obese and other (AAOx1, arrived leaning towards the right side with preference of looking to the right though if asked she is able to easily look to the left ) Head Head exam: Present atraumatic, normocephalic and normal inspection Eye Eye exam: Present normal appearance, PERRL and EOMI ENT ENT exam: Present normal exam, normal oropharynx and mucous membranes dry Neck Neck exam: Present full ROM, trachea midline and other (No JVD ) Chest Chest inspection: Present normal inspection and symmetric chest wall rise Respiratory Respiratory exam: Present normal lung sounds bilaterally Cardiovascular Cardiovascular exam: Present regular rate, normal rhythm and normal heart sounds Abdominal Exam Abdominal exam: Present soft and normal bowel sounds Extremities Exam Extremities exam: Present normal inspection (moving all 4 extremities ) and full ROM Neurological Exam Neurological exam: Present other (AAOx1, arrived leaning towards the right side with preference of looking to the right though if asked she is able to easily look to the left, answered very simple questions minimally, moving all 4 extremities ) Psychiatric Psychiatric exam: Present normal affect and normal mood Skin Skin exam: Present warm, dry, intact and normal color Course Quality Measures Suspected type of Stroke: Non Acute Last known well (date): 02/28/25 Last known well (time): 21:00 Tenecteplase given: Reason(s) TPA not given: Outside the time window not given stroke and Current suspected stage: septic shock (LA >4 and/or hypotension) IVF 30 ml/kg given for lactic acid >4 and/or hypotension: yes Vasopressors initiated: No Sepsis reassessment completed at (date): 03/01/25 Sepsis reassessment completed at (time): 10:00 Possible source: genitourinary Blood cultures ordered: completed in ED Antibiotic ordered: Yes Pertinent labs: 03/01/25 03/01/25 13:23 14:07 Lactic Acid 6.8 H* mMol/L (0.4-2.0) Procalcitonin Pending sepsis Orders Category Date Time Status Admit to Inpatient Status Routine Admission 03/01/25 14:01 Active Patient Condition Routine Admission 03/01/25 14:01 Ordered Activity as Tolerated Routine Care 03/01/25 14:03 Ordered Aspiration precautions NOW Care 03/01/25 14:03 Active Bedside Blood Glucose NOW Care 03/01/25 08:17 Active COVID-19 Screening Questionnaire NOW Care 03/01/25 09:44 Active [place] NOW Care 03/01/25 08:17 Active Continuous Pulse Oximetry NOW Care 03/01/25 08:17 Completed Continuous Pulse Oximetry NOW Care 03/01/25 14:01 Completed Continuous Pulse Oximetry STAT Care 03/01/25 09:03 Completed Decision to Admit X1 Care 03/01/25 09:44 Completed Dialysis [Hemodialysis] Urgent Care 03/01/25 14:20 Active EKG (ED ONLY) *Do not use* NOW Care 03/01/25 08:02 Completed Falcon [Urinary Catheter] X1 Care 03/01/25 09:11 Active Incentive Spirometry Treatment .q2h w/a Care 03/01/25 14:01 Active Initiate Warming Therapy X1 Care 03/01/25 12:56 Active Insert IV NOW Care 03/01/25 08:17 Active Insert NG / OG tube NOW Care 03/01/25 10:34 Active NIH Stroke Scale now Care 03/01/25 08:33 Active NPO NOW Care 03/01/25 08:17 Active NPO NOW Care 03/01/25 14:03 Active Neuro Check Q15MIN Care 03/01/25 08:33 Active Notify provider NEEDED Care 03/01/25 14:01 Active Nurse Swallow Screen x1 Care 03/01/25 08:33 Active Strict Intake and Output Q1H Care 03/01/25 14:15 Ordered Strict Intake and Output Q1H Care 03/01/25 15:15 Ordered Strict Intake and Output Q1H Care 03/01/25 16:15 Ordered Strict Intake and Output Q1H Care 03/01/25 17:15 Ordered Strict Intake and Output Q1H Care 03/01/25 18:15 Ordered Strict Intake and Output Q1H Care 03/01/25 19:15 Ordered Strict Intake and Output Q1H Care 03/01/25 20:15 Ordered Strict Intake and Output Q1H Care 03/01/25 21:15 Ordered Strict Intake and Output Q1H Care 03/01/25 22:15 Ordered Strict Intake and Output Q1H Care 03/01/25 23:15 Ordered Strict Intake and Output Q1H Care 03/02/25 00:15 Ordered Strict Intake and Output Q1H Care 03/02/25 01:15 Ordered Strict Intake and Output Q1H Care 03/02/25 02:15 Ordered Strict Intake and Output Q1H Care 03/02/25 03:15 Ordered Strict Intake and Output Q1H Care 03/02/25 04:15 Ordered Strict Intake and Output Q1H Care 03/02/25 05:15 Ordered Strict Intake and Output Q1H Care 03/02/25 06:15 Ordered Strict Intake and Output Q1H Care 03/02/25 07:15 Ordered Strict Intake and Output Q1H Care 03/02/25 08:15 Ordered Strict Intake and Output Q1H Care 03/02/25 09:15 Ordered Strict Intake and Output Q1H Care 03/02/25 10:15 Ordered Strict Intake and Output Q1H Care 03/02/25 11:15 Ordered Strict Intake and Output Q1H Care 03/02/25 12:15 Ordered Strict Intake and Output Q1H Care 03/02/25 13:15 Ordered Consult to Nephrology Stat Cons 03/01/25 09:46 Ordered Consult to Neurology / Tele-Neurology Routine Cons 03/01/25 08:33 Active Diet NPO (NOW) Diet 03/01/25 14:[address] angio stroke protocol Stat Exams 03/01/25 08:[address] stroke protocol Stat Exams 03/01/25 08:33 Completed EKG (ED Only) Stat Exams 03/01/25 08:02 Draft IR dialysis catheter insertion Stat Exams 03/01/25 Ordered IR us guided vascular access Stat Exams 03/01/25 Ordered XR chest 1V DAILY Exams 03/02/25 09:00 Ordered XR chest 1V DAILY Exams 03/03/25 09:00 Ordered XR chest 1V DAILY Exams 03/04/25 09:00 Ordered XR chest 1V DAILY Exams 03/05/25 09:00 Ordered XR chest 1V DAILY Exams 03/06/25 09:00 Ordered XR chest 1V DAILY Exams 03/07/25 09:00 Ordered XR chest 1V DAILY Exams 03/08/25 09:00 Ordered XR chest 1V DAILY Exams 03/09/25 09:00 Ordered XR chest 1V DAILY Exams 03/10/25 09:00 Ordered XR chest 1V DAILY Exams 03/11/25 09:00 Ordered XR chest 1V post procedure Stat Exams 03/01/25 11:05 Completed ABG [Arterial Blood Gas] AM DRAW Lab 03/02/25 05:00 Ordered ABG [Arterial Blood Gas] AM DRAW Lab 03/03/25 05:00 Ordered ABG [Arterial Blood Gas] AM DRAW Lab 03/04/25 05:00 Ordered ABG [Arterial Blood Gas] AM DRAW Lab 03/05/25 05:00 Ordered ABG [Arterial Blood Gas] AM DRAW Lab 03/06/25 05:00 Ordered ABG [Arterial Blood Gas] AM DRAW Lab 03/07/25 05:00 Ordered ABG [Arterial Blood Gas] AM DRAW Lab 03/08/25 05:00 Ordered ABG [Arterial Blood Gas] AM DRAW Lab 03/09/25 05:00 Ordered ABG [Arterial Blood Gas] AM DRAW Lab 03/10/25 05:00 Ordered ABG [Arterial Blood Gas] AM DRAW Lab 03/11/25 05:00 Ordered ABG [Arterial Blood Gas] Stat Lab 03/01/25 14:34 Ordered Acetaminophen Stat Lab 03/01/25 08:29 Completed Alcohol, Blood Medical Stat Lab 03/01/25 08:29 Completed Ammonia Stat Lab 03/01/25 09:39 Completed Arterial Blood Gas Stat Lab 03/01/25 09:05 Completed BMP [Basic Metabolic Panel] Stat Lab 03/01/25 11:11 Completed Blood Culture (Lab) Stat Lab 03/01/25 08:21 Received CBC AM DRAW Lab 03/02/25 05:00 Ordered CBC AM DRAW Lab 03/03/25 05:00 Ordered CBC AM DRAW Lab 03/04/25 05:00 Ordered CBC AM DRAW Lab 03/05/25 05:00 Ordered CBC AM DRAW Lab 03/06/25 05:00 Ordered CBC AM DRAW Lab 03/07/25 05:00 Ordered CBC AM DRAW Lab 03/08/25 05:00 Ordered CBC AM DRAW Lab 03/09/25 05:00 Ordered CBC AM DRAW Lab 03/10/25 05:00 Ordered CBC AM DRAW Lab 03/11/25 05:00 Ordered CBC Stat Lab 03/01/25 08:29 Completed CMP [Comprehensive Metabolic Panel] AM DRAW Lab 03/02/25 05:00 Ordered CMP [Comprehensive Metabolic Panel] AM DRAW Lab 03/03/25 05:00 Ordered CMP [Comprehensive Metabolic Panel] AM DRAW Lab 03/04/25 05:00 Ordered CMP [Comprehensive Metabolic Panel] AM DRAW Lab 03/05/25 05:00 Ordered CMP [Comprehensive Metabolic Panel] AM DRAW Lab 03/06/25 05:00 Ordered CMP [Comprehensive Metabolic Panel] AM DRAW Lab 03/07/25 05:00 Ordered CMP [Comprehensive Metabolic Panel] AM DRAW Lab 03/08/25 05:00 Ordered CMP [Comprehensive Metabolic Panel] AM DRAW Lab 03/09/25 05:00 Ordered CMP [Comprehensive Metabolic Panel] AM DRAW Lab 03/10/25 05:00 Ordered CMP [Comprehensive Metabolic Panel] AM DRAW Lab 03/11/25 05:00 Ordered Comprehensive Metabolic Panel Stat Lab 03/01/25 08:29 Completed Drug Screen,Urine Stat Lab 03/01/25 08:11 Completed Hemoglobin and Hematocrit Stat Lab 03/01/25 16:30 Ordered Hepatitis Acute Panel Stat Lab 03/01/25 08:29 Received Lactate (Lactic Acid) Stat Lab 03/01/25 13:23 Results Mag [Magnesium] AM DRAW Lab 03/02/25 05:00 Ordered Mag [Magnesium] AM DRAW Lab 03/03/25 05:00 Ordered Mag [Magnesium] AM DRAW Lab 03/04/25 05:00 Ordered Mag [Magnesium] AM DRAW Lab 03/05/25 05:00 Ordered Mag [Magnesium] AM DRAW Lab 03/06/25 05:00 Ordered Mag [Magnesium] AM DRAW Lab 03/07/25 05:00 Ordered Mag [Magnesium] AM DRAW Lab 03/08/25 05:00 Ordered Mag [Magnesium] AM DRAW Lab 03/09/25 05:00 Ordered Mag [Magnesium] AM DRAW Lab 03/10/25 05:00 Ordered Mag [Magnesium] AM DRAW Lab 03/11/25 05:00 Ordered Magnesium Q4H Lab 03/01/25 14:07 Received Magnesium Q4H Lab 03/01/25 17:15 Ordered Magnesium Q4H Lab 03/01/25 21:15 Ordered Magnesium Q4H Lab 03/02/25 01:15 Ordered Magnesium Q4H Lab 03/02/25 05:15 Ordered Magnesium Q4H Lab 03/02/25 09:15 Ordered Magnesium Q4H Lab 03/02/25 13:15 Ordered Magnesium Q4H Lab 03/02/25 17:15 Ordered Magnesium Q4H Lab 03/02/25 21:15 Ordered Magnesium Q4H Lab 03/03/25 01:15 Ordered Magnesium Stat Lab 03/01/25 08:29 Completed PT [Prothrombin Time with INR] AM DRAW Lab 03/02/25 05:00 Ordered PT [Prothrombin Time with INR] AM DRAW Lab 03/03/25 05:00 Ordered PT [Prothrombin Time with INR] AM DRAW Lab 03/04/25 05:00 Ordered PT [Prothrombin Time with INR] AM DRAW Lab 03/05/25 05:00 Ordered PT [Prothrombin Time with INR] AM DRAW Lab 03/06/25 05:00 Ordered PT [Prothrombin Time with INR] AM DRAW Lab 03/07/25 05:00 Ordered PT [Prothrombin Time with INR] AM DRAW Lab 03/08/25 05:00 Ordered PT [Prothrombin Time with INR] AM DRAW Lab 03/09/25 05:00 Ordered PT [Prothrombin Time with INR] AM DRAW Lab 03/10/25 05:00 Ordered PT [Prothrombin Time with INR] AM DRAW Lab 03/11/25 05:00 Ordered PTT [Partial Thromboplastin Time] AM DRAW Lab 03/02/25 05:00 Ordered PTT [Partial Thromboplastin Time] AM DRAW Lab 03/03/25 05:00 Ordered PTT [Partial Thromboplastin Time] AM DRAW Lab 03/04/25 05:00 Ordered PTT [Partial Thromboplastin Time] AM DRAW Lab 03/05/25 05:00 Ordered PTT [Partial Thromboplastin Time] AM DRAW Lab 03/06/25 05:00 Ordered PTT [Partial Thromboplastin Time] AM DRAW Lab 03/07/25 05:00 Ordered PTT [Partial Thromboplastin Time] AM DRAW Lab 03/08/25 05:00 Ordered PTT [Partial Thromboplastin Time] AM DRAW Lab 03/09/25 05:00 Ordered PTT [Partial Thromboplastin Time] AM DRAW Lab 03/10/25 05:00 Ordered PTT [Partial Thromboplastin Time] AM DRAW Lab 03/11/25 05:00 Ordered Partial Thromboplastin Time Stat Lab 03/01/25 08:29 Completed Phosphorous AM DRAW Lab 03/02/25 05:00 Ordered Phosphorous AM DRAW Lab 03/03/25 05:00 Ordered Phosphorous AM DRAW Lab 03/04/25 05:00 Ordered Phosphorous AM DRAW Lab 03/05/25 05:00 Ordered Phosphorous AM DRAW Lab 03/06/25 05:00 Ordered Phosphorous AM DRAW Lab 03/07/25 05:00 Ordered Phosphorous AM DRAW Lab 03/08/25 05:00 Ordered Phosphorous AM DRAW Lab 03/09/25 05:00 Ordered Phosphorous AM DRAW Lab 03/10/25 05:00 Ordered Phosphorous AM DRAW Lab 03/11/25 05:00 Ordered Procalcitonin Routine Lab 03/01/25 14:07 Received Prothrombin Time with INR Stat Lab 03/01/25 08:29 Completed Renal Function Panel Q4 Lab 03/01/25 14:07 Received Renal Function Panel Q Lab 03/01/25 17:15 Ordered Renal Function Panel Q Lab 03/01/25 21:15 Ordered Renal Function Panel Q Lab 03/02/25 01:15 Ordered Renal Function Panel Q4 Lab 03/02/25 05:15 Ordered Renal Function Panel Q Lab 03/02/25 09:15 Ordered Renal Function Panel Q Lab 03/02/25 13:15 Ordered Renal Function Panel Q Lab 03/02/25 17:15 Ordered Renal Function Panel Q4 Lab 03/02/25 21:15 Ordered Renal Function Panel Q4 Lab 03/03/25 01:15 Ordered Salicylate Stat Lab 03/01/25 08:29 Completed Thyroid Stimulating Hormone Stat Lab 03/01/25 08:29 Completed Triglycerides AM DRAW Lab 03/02/25 05:00 Ordered Triglycerides AM DRAW Lab 03/03/25 05:00 Ordered Triglycerides AM DRAW Lab 03/04/25 05:00 Ordered Triglycerides AM DRAW Lab 03/05/25 05:00 Ordered Triglycerides AM DRAW Lab 03/06/25 05:00 Ordered Triglycerides AM DRAW Lab 03/07/25 05:00 Ordered Triglycerides AM DRAW Lab 03/08/25 05:00 Ordered Triglycerides AM DRAW Lab 03/09/25 05:00 Ordered Triglycerides AM DRAW Lab 03/10/25 05:00 Ordered Triglycerides AM DRAW Lab 03/11/25 05:00 Ordered Troponin I Stat Lab 03/01/25 08:29 Completed Urinalysis, C/S if Indicated Stat Lab 03/01/25 08:11 Completed ALBUTEROL RT 0.5ml [Proventil Rt 0.5ml] Med 03/01/25 11:02 Discontinued 10 mg INH X1 ONE ALBUTEROL RT 0.5ml [Proventil Rt 0.5ml] Med 03/01/25 10:48 Discontinued 2.5 mg INH X1 ONE Acetaminophen Tab [Tylenol Tab] Med 03/01/25 14:01 Active 650 mg NG Q6H PRN Albumin Human-Kjda 25% Ivpb [Albuminex 25% Ivpb] Med 03/01/25 13:00 Discontinu ed 25 gm in 100 ml IV Q30MIN Albumin Human-Kjda 25% Ivpb [Albuminex 25% Ivpb] Med 03/01/25 14:20 Active 25 gm in 100 ml IV Q30MIN Albuterol/Ipratr Rt Rosario [Duoneb Rt Rosario] Med 03/01/25 15:00 Active 3 ml INH Q4HRRT Calcium Chloride 10% Abboject Med 03/01/25 09:45 Discontinued 10 ml IV X1 ONE Calcium Chloride 10% Abboject Med 03/01/25 10:42 Discontinued 10 ml IV X1 ONE Calcium Chloride 10% Abboject Med 03/01/25 12:30 Discontinued 10 ml IV X1 ONE Calcium Chloride 10% Abboject 10 ml Med 03/01/25 09:37 Discontinued Dextrose 5%-Water [D5w] 100 ml IV X1 Calcium Chloride 10% Abboject 10 ml Med 03/01/25 12:12 Discontinued Dextrose 5%-Water [D5w] 100 ml IV X1 Dextrose 5%-Water [D5w] 1,000 ml Med 03/01/25 08:45 Discontinued IV 100 mls/hr Dextrose 50% Syr [D50w Syringe Abboject] Med 03/01/25 09:37 Discontinued 50 ml IVP X1 ONE Dextrose 50% Syr [D50w Syringe Abboject] Med 03/01/25 10:34 Discontinued 50 ml IVP X1 ONE Dextrose 50% Syr [D50w Syringe Abboject] Med 03/01/25 12:12 Discontinued 50 ml IVP X1 ONE HYDROcodone*/APAP 5/325 [Robbins 5/325] Med 03/01/25 14:01 Active 1 tab NG Q4HR PRN Heparin Inj Med 03/01/25 21:00 Active 5,000 unit SC Q12HR Insulin Regular Med 03/01/25 09:37 Discontinued 10 unit IV X1 ONE Insulin Regular Med 03/01/25 10:34 Discontinued 6 unit IV X1 ONE Insulin Regular Med 03/01/25 12:12 Discontinued 6 unit IV X1 ONE Lactulose Syrup [Enulose Syrup] Med 03/01/25 14:00 Active 10 gm NG TID Ondansetron Inj [Zofran Inj] Med 03/01/25 14:01 Active 4 mg IVP Q6H PRN Piper/Tazo 3.375 gm Premix [Zosyn] Med 03/01/25 09:02 Discontinued 3.375 gm in 50 ml IV X1 Piper/Tazo Inj [Zosyn Inj] 4.5 gm Med 03/01/25 13:18 Discontinued Sodium Chloride 0.9% (Pop) [NS 0.9% mini bag] 100 ml IV X1 Ringers Lactated 1000 ml [Lactated Ringers] 1,000 ml Med 03/01/25 11:50 Discontinued IV 999 mls/hr Ringers Lactated 1000 ml [Lactated Ringers] 1,000 ml Med 03/01/25 14:35 Active IV 999 mls/hr Ringers Lactated 1000 ml [Lactated Ringers] 1,710 ml Med 03/01/25 09:02 Discontinued IV 1,710 mls/hr Ringers Lactated 1000 ml [Lactated Ringers] 1,710 ml Med 03/01/25 09:15 Discontinued IV 1,710 mls/hr Sod Polystyrene Sulfon Susp [Kayexalate Susp] Med 03/01/25 10:34 Discontinued 15 gm NG X1 ONE Sod Polystyrene Sulfon Susp [Kayexalate Susp] Med 03/01/25 12:12 Discontinued 15 gm PO X1 ONE Sodium Bicarb 8.4% 50ml Vial* Med 03/01/25 09:37 Discontinued 50 meq IV X1 ONE Sodium Bicarb 8.4% 50ml Vial* Med 03/01/25 10:34 Discontinued 50 meq IV X1 ONE Sodium Bicarb 8.4% 50ml Vial* Med 03/01/25 12:12 Discontinued 50 meq IV X1 ONE Sodium Bicarb 8.4% SYR Med 03/01/25 11:46 Discontinued 50 ml IV X1 ONE Sodium Chloride 0.9% 1000 ml [Ns] 1,000 ml Med 03/01/25 08:17 Discontinued IV 1,000 mls/hr Sodium Chloride Rt Rosario 0.9% [NS Rt Rosario 0.9%] Med 03/01/25 10:48 Discontinued 3 ml INH PRN PRN Sodium Chloride Rt Rosario 0.9% [NS Rt Rosario 0.9%] Med 03/01/25 11:02 Active 3 ml INH PRN PRN Code Status Routine Oth 03/01/25 14:01 Ordered Oxygen Delivery NOW RT 03/01/25 08:17 Active Vital Signs Vital signs: Vital Signs Pulse Rate 82 03/01/25 08:12 Respiratory Rate 19 03/01/25 08:12 Blood Pressure 87/60 L 03/01/25 08:12 Pulse Oximetry (%) 93 L 03/01/25 08:12 Altered Mental Status MDM Narrative MDM Narrative:: I, Sabina Byrnes, am scribing for and in the presence of Dr. Oliver. 0912a: I spoke with teleneurologist Dr. Meza, states patient is not a TNK candidate. LKWT < 4.5 hours. 0945a: I spoke with automotive tire tester Dr. Mccauley. Discussed patients PMHx, HPI, ED course, exam findings, labs, and radiology results. She agrees to consult. 0946a: I spoke with acute care certified nursing assistant Dr. Myrick. Discussed patients PMHx, HPI, ED course, exam findings, labs, and radiology results. Patient accepts the patient for admission to the ICU. 1000a: On reassessment after receiving 1500L of LR, the patients blood pressure improved, now 112/88. 1030a: After 1700L of LR, BP 120/65. Patient data External records reviewed:: [facility] previous records, EMS form and Detention records (I reviewed pmhx and medication list from [facility] ) Clinical information provided by:: patient and EMS Social determinants that could affect healthcare access:: housing (SNF resident ) Patient has the following chronic illnesses:: hypertension, hypothyroidism, liver cirrohsis, chronic back pain 2./2 lumbar spine fracture How is presenting disease/condition affected by chronic disease/condition?: exacerbated by Evaluation data The following diagnostics were reviewed and interpreted by me:: lab results, radiology exam(s) and EKG tracing(s) (EKG @ 08:05am, interpreted by me, uncertain regular rhythm, rate 88, left bundle branch block. ) Lab and/or radiology exams considered but not ordered:: None Interpretation Summary: Ordering Physician: Miguel Angel Oliver MD Date of Service: 03/01/25 Procedure(s): CT stroke protocol Accession Number(s): [id number] cc: Miguel Angel Oliver MD; Kenn Carballo MD; Tona Koehler MD~ Examination: CT brain head without contrast. 2-D sagittal coronal reconstructions Date and time of exam: March 01, 2025, 0840 hours INDICATIONS: Stroke alert, onset focal neurologic deficit beginning 5:00 a.m. CTDI: vol (mGy): 59.1 DLP: (mGycm): 1228 Technique: Multiple CT axial sections of the brain have been obtained, 5 mm slice thickness. Contrast has not been administered. 2-D sagittal, coronal reconstructions have been obtained Low dose protocols were performed. One or more of the following dose reduction techniques were used; automated exposure control, adjustment of the mA and/or KV according to patient size, use of iterative reconstruction technique. Findings: No significant ventricular enlargement. Intra-axial or extra-axial hemorrhage density is not seen. No mass effect or midline shift Basal cisterns are not remarkable. Fourth ventricle is midline. Cranial vault intact. Impression: Negative for acute hemorrhage, mass effect or midline shift Dictated By: Kenn Carballo MD Signed By: <Electronically signed by Kenn Carballo MD in OV> 03/01/25 0900 Ordering Physician: Miguel Angel Oliver MD Date of Service: 03/01/25 Procedure(s): CT angio stroke protocol Accession Number(s): [id number] cc: Miguel Angel Oliver MD; Kenn Carballo MD; Tona Koehler MD~ Examination: CTA carotids with intravenous contrast CTA brain, head with intravenous contrast. 2-D sagittal, coronal reconstructions. 3-D reconstructions. Exam date and time: March 01, 2025, 0845 hours INDICATIONS: Stroke alert, onset focal neurologic deficit today CTDI: vol (mGy) 51.7 DLP: (mGycm) 145 Technique: Multiple CTA axial brain, head carotid images post intravenous contrast injection 75 cc, [id number]. 2-D sagittal, coronal reconstructions. 3-D reconstructions, 3-D post processing including vascular maximum intensity projection images. Low dose protocols were performed. One or more of the following dose reduction techniques were used; automated exposure control, adjustment of the mA and/or KV according to patient size, use of iterative reconstruction technique. Findings: Patchy parenchymal disease in the right upper lobe No significant common carotid carotid bifurcation or internal carotid artery stenoses Dominant left vertebral artery with no critical stenoses No cerebral large vessel arterial occlusions or thrombus IMPRESSION: Parenchymal disease in the right upper lobe No significant neck arterial stenoses No cerebral large vessel arterial occlusions or thrombus Dictated By: Kenn Carballo MD Signed By: <Electronically signed by Kenn Carballo MD in OV> 03/01/25 1007 Ordering Physician: Miguel Angel Oliver MD Date of Service: 03/01/25 Procedure(s): XR chest 1V post procedure Accession Number(s): [id number] cc: Miguel Angel Oliver MD; Kenn Craballo MD; Tona Koehler MD~ EXAMINATION: AP chest single view TECHNIQUE: AP upright portable chest single view Date and time: March 01, 2025, 1114 hours, comparison 12/07/2024 INDICATIONS: Post orogastric tube placement. FINDINGS: Orogastric tube in the stomach, patient motion degrades visualization of the orogastric tube Inspiratory effort is reduced Prominent vascular congestion including central vascular engorgement IMPRESSION: Limited study Orogastric tubes in the stomach Dictated By: Kenn Carballo MD Signed By: <Electronically signed by Kenn Carballo MD in OV> 03/01/25 1145 Medications / Prescriptions Medications or Prescriptions considered but not ordered:: None Medication administrations:: Medication Administration History Acetaminophen (Acetaminophen 325 Mg Tablet) 650 mg NG Q6H PRN PRN Reason: Fever >100.4 or pain 1-3 Stop: 03/31/25 14:00 Hydrocodone Bitart/Acetaminophen (Hydrocodone/Apap 5/325 Tablet) 1 tab NG Q4HR PRN PRN Reason: PAIN SCALE 4-6 (Moderate Stop: 03/06/25 14:00 Albuterol/Ipratropium (Albuterol/Ipratropium (Duoneb) Rt Rosario 3 Ml Nebu) 3 ml INH Q4HRRT RAMON Stop: 03/31/25 14:59 Heparin Sodium (Porcine) (Heparin Sod Inj 5000 Unit/Ml Vial) 5,000 unit SC Q12HR RAMON Stop: 03/15/25 20:59 Albumin Human (Albuminex 25% Ivpb) 25 gm in 100 mls @ 100 mls/hr IV Q30MIN PRN PRN Reason: DIALYSIS Lactated Ringer's (Lactated Ringers) 1,000 mls @ 999 mls/hr IV .Q1H1M ONE Stop: 03/01/25 15:35 Lactulose (Lactulose Syrup 20 Gm/30 Ml Udc) 10 gm NG TID RAMON; Protocol Stop: 03/31/25 13:59 Last Admin: 03/01/25 13:39 Dose: 10 gm Documented By: JUANITO Ondansetron HCl (Ondansetron Inj 2 Mg/Ml Inj 2 Ml) 4 mg IVP Q6H PRN; Protocol PRN Reason: NAUSEA OR VOMITING Stop: 03/31/25 14:00 Sodium Chloride (Sodium Chloride Rt Rosario 0.9% 3 Ml Nebu) 3 ml INH PRN PRN PRN Reason: SOLN Stop: 03/31/25 11:01 Discontinued Medications Albuterol (Albuterol Rt 2.5 Mg/0.5 Ml Nebu) 2.5 mg INH X1 ONE Stop: 03/01/25 10:49 Last Admin: 03/01/25 12:53 Dose: Not Given Documented By: JUANITO Non-Admin Reason: Discontinued Albuterol (Albuterol Rt 2.5 Mg/0.5 Ml Nebu) 10 mg INH X1 ONE Stop: 03/01/25 11:03 Last Admin: 03/01/25 11:06 Dose: 10 mg Documented By: CLINTON Calcium Chloride (Calcium Chloride 10% Inj 10 Ml Syrg) 10 ml IV X1 ONE Stop: 03/01/25 09:46 Last Admin: 03/01/25 09:53 Dose: 10 ml Documented By: JUANITO Calcium Chloride (Calcium Chloride 10% Inj 10 Ml Syrg) 10 ml IV X1 ONE Stop: 03/01/25 10:43 Last Admin: 03/01/25 11:38 Dose: 10 ml Documented By: JUANITO Calcium Chloride (Calcium Chloride 10% Inj 10 Ml Syrg) 10 ml IV X1 ONE Stop: 03/01/25 12:31 Last Admin: 03/01/25 13:38 Dose: 10 ml Documented By: JUANITO Dextrose (Dextrose 50%-Water Inj 50 Ml Syringe) 50 ml IVP X1 ONE Stop: 03/01/25 09:38 Last Admin: 03/01/25 09:54 Dose: 50 ml Documented By: JUANITO Dextrose (Dextrose 50%-Water Inj 50 Ml Syringe) 50 ml IVP X1 ONE Stop: 03/01/25 10:35 Last Admin: 03/01/25 11:34 Dose: 50 ml Documented By: JUANITO Dextrose (Dextrose 50%-Water Inj 50 Ml Syringe) 50 ml IVP X1 ONE Stop: 03/01/25 12:13 Last Admin: 03/01/25 13:49 Dose: 50 ml Documented By: JUANITO Sodium Chloride (Ns) 1,000 mls @ 1,000 mls/hr IV .Q1H ONE Stop: 03/01/25 09:16 Last Admin: 03/01/25 09:17 Dose: Not Given Documented By: JUANITO Non-Admin Reason: Discontinued Dextrose (D5w) 1,000 mls @ 100 mls/hr IV .Q10H RAMON Stop: 03/31/25 08:44 Last Admin: 03/01/25 09:17 Dose: Not Given Documented By: JUANITO Non-Admin Reason: Cancelled by Provider Lactated Ringer's (Lactated Ringers) 1,710 mls @ 1,710 mls/hr 30 ml/kg infuse over 60 min (1710 ml) IV .Q1H ONE Stop: 03/01/25 10:01 Last Admin: 03/01/25 09:17 Dose: Not Given Documented By: JUANITO Non-Admin Reason: Discontinued Piperacillin/Tazobactam/Dextrose (Zosyn) 3.375 gm in 50 mls @ 100 mls/hr IV X1 ONE Stop: 03/01/25 09:31 Last Admin: 03/01/25 09:17 Dose: Not Given Documented By: JUANITO Non-Admin Reason: Discontinued Lactated Ringer's (Lactated Ringers) 1,710 mls @ 1,710 mls/hr 30 ml/kg infuse over 60 min (1710 ml) IV .Q1H ONE Stop: 03/01/25 10:14 Last Infusion: 03/01/25 10:30 Dose: Infused Documented By: Admin: 03/01/25 09:21 Dose: 1,710 mls/hr Documented By: JUANITO Calcium Chloride 10 ml/ (Dextrose) 110 mls @ 110 mls/hr IV X1 ONE Stop: 03/01/25 10:36 Lactated Ringer's (Lactated Ringers) 1,000 mls @ 999 mls/hr IV .Q1H1M ONE Stop: 03/01/25 12:50 Last Infusion: 03/01/25 13:14 Dose: Infused Documented By: Admin: 03/01/25 12:15 Dose: 999 mls/hr Documented By: JUANITO Calcium Chloride 10 ml/ (Dextrose) 110 mls @ 110 mls/hr IV X1 ONE Stop: 03/01/25 13:11 Albumin Human (Albuminex 25% Ivpb) 25 gm in 100 mls @ 100 mls/hr IV Q30MIN PRN PRN Reason: DIALYSIS Piperacillin Sod/Tazobactam (Sod 4.5 gm/ Sodium Chloride) 100 mls @ 200 mls/hr IV X1 ONE; Protocol Stop: 03/01/25 13:47 Last Infusion: 03/01/25 14:15 Dose: Infused Documented By: Admin: 03/01/25 13:15 Dose: 200 mls/hr Documented By: JUANITO Insulin Human Regular (Insulin Hum Regular 1 Unit/0.01 Ml (Per Unit)) 10 unit IV X1 ONE Stop: 03/01/25 09:38 Last Admin: 03/01/25 09:53 Dose: 10 unit Documented By: JUANITO Co-signed By: LASHAY Insulin Human Regular (Insulin Hum Regular 1 Unit/0.01 Ml (Per Unit)) 6 unit IV X1 ONE Stop: 03/01/25 10:35 Last Admin: 03/01/25 11:39 Dose: Not Given Documented By: JUANITO Non-Admin Reason: Discontinued Comments: PER DR. OLIVER, LANA NOT GIVE THIS INSULIN Insulin Human Regular (Insulin Hum Regular 1 Unit/0.01 Ml (Per Unit)) 6 unit IV X1 ONE Stop: 03/01/25 12:13 Last Admin: 03/01/25 13:52 Dose: 6 unit Documented By: JUANITO Co-signed By: MANAV Sodium Bicarbonate (Sodium Bicarb Inj 8.4% 1 Meq/Ml 50 Ml Vial) 50 meq IV X1 ONE Stop: 03/01/25 09:38 Last Admin: 03/01/25 09:53 Dose: 50 meq Documented By: JUANITO Sodium Bicarbonate (Sodium Bicarb Inj 8.4% 1 Meq/Ml 50 Ml Vial) 50 meq IV X1 ONE Stop: 03/01/25 10:35 Last Admin: 03/01/25 12:53 Dose: Not Given Documented By: JUANITO Non-Admin Reason: Discontinued Sodium Bicarbonate (Sodium Bicarb Inj 8.4% Syr 50 Ml Syringe) 50 ml IV X1 ONE Stop: 03/01/25 11:47 Last Admin: 03/01/25 11:54 Dose: 50 ml Documented By: JUANITO Sodium Bicarbonate (Sodium Bicarb Inj 8.4% 1 Meq/Ml 50 Ml Vial) 50 meq IV X1 ONE Stop: 03/01/25 12:13 Last Admin: 03/01/25 13:41 Dose: 50 meq Documented By: JUANITO Sodium Chloride (Sodium Chloride Rt Rosario 0.9% 3 Ml Nebu) 3 ml INH PRN PRN PRN Reason: SOLN Stop: 03/31/25 10:47 Sodium Polystyrene Sulfonate (Sod Polystyrene Sulfon Susp 15 Gm/60 Ml Btl) 15 gm NG X1 ONE Stop: 03/01/25 10:35 Last Admin: 03/01/25 12:08 Dose: 15 gm Documented By: JUANITO Sodium Polystyrene Sulfonate (Sod Polystyrene Sulfon Susp 15 Gm/60 Ml Btl) 15 gm PO X1 ONE Stop: 03/01/25 12:13 Last Admin: 03/01/25 13:55 Dose: 15 gm Documented By: JUANITO See above Consultations Consultation(s) initiated? (list below): Yes Consultation #1 (Physician, Specialty, Details): See MDM Diagnosis Most likely diagnosis given after review of the tests above:: Hyperkalemia ALBAN AMS Sepsis UTI Admission Indicated Admission indicated?: indicated Admission Request Was there a request for admission?: Yes Admission Attestation Admission request attestation: Discussed case with [] from Hospitalist service regarding admission. Discussed patients ED course, exam findings, labs, and radiology results. The Hospitalist [agrees,declines] to accept the patient for admission. Disposition Plan Disposition Plan: Admit Critical Care Time Critical Care Time Critical Care Time: Yes Total Critical Care Time (min.): 120 Attestation: The high probability of sudden, clinically significant deterioration in the patient's condition required the highest level of my preparedness to intervene urgently. The services I provided to this patient were to treat and/or prevent clinically significant deterioration. Services included the following: chart data review, reviewing nursing notes and/or old charts, documentation time, career development consultant collaboration regarding findings and treatment options, medication orders and management, direct patient care, vital sign assessments and ordering, interpreting and reviewing diagnostic studies and lab tests. Aggregate critical care time includes only time during which I was engaged in work directly related to the patient's care, as described above, whether at bedside or elsewhere in the Emergency Department. It did not include time spent performing other reported procedures or the services of residents, students, nurses or physician assistants. Discharge Plan Plan Patient Disposition: Admit Acute Care w/in Hospital Discharge Disposition comment: ICU Prescriptions/Referrals Prescriptions/Med Rec: No Action bisacodyl 5 mg tablet 5 mg PO QDAY PRN (Reason: constipation) Qty: 10 0RF amitriptyline 25 mg tablet 25 mg PO DAILY amlodipine 5 mg tablet 5 mg PO DAILY allopurinol 100 mg tablet 100 mg PO DAILY simethicone 80 mg Tablet,Chewable 80 mg PO QID PRN (Reason: Gas) 30 Days Qty: 120 0RF pantoprazole 40 mg Tablet,Delayed Release (Dr/Ec) 40 mg PO QDAY 30 Days Qty: 30 0RF docusate sodium 100 mg Capsule 100 mg PO QDAY PRN (Reason: constipation) Qty: 60 0RF levothyroxine 137 mcg tablet 150 mcg PO DAILY 30 Days Qty: 33 0RF polyethylene glycol 3350 [Miralax] 17 gram/dose powder 17 g PO QDAY Qty: 476 0RF Rx Instructions: May take 1 dose 3 times daily for the next 2 days, then twice daily for the 2 days after that, then once daily thereafter as needed for constipation. oxycodone-acetaminophen 5-325 mg tablet 1 tab PO Q8H MDD 15 mg-975 mg PRN (Reason: pain) 30 Days Qty: 90 0RF Referrals: Tona Metz MD [Primary Care Provider, [facility]] - In 1 week Problem List Clinical Impression: Acute hyperkalemia, ALBAN (acute kidney injury), AMS (altered mental status), Sepsis, Acute UTI Patient/Caregiver Discharge Instructions Print Language: Serbian Stand Alone Forms: [employer] Award Info., Patient Portal Info Letter
[2025-03-01] MEDS: ALBUTEROL RT 2.5 MG/0.5 ML NEBU 10 MG INH (11:06)
--- NOTE | 2025-03-01 11:48 | ESHP_ITS ---
<Statement entered by Dominick Mejia MD - 03/01/25 20:25> I have reviewed the note and agree with the resident's assessment & plan with exceptions as below. I have personally reviewed labs, imaging, home meds/prior records, examined the patient, formulated and discussed management plan with the IM team. Elle is a 70 y/o female who has a past medical history of chronic kidney disease stage IIIb, YODER (confirmed by liver biopsy), hypothyroidism, previously treated giardia infection, chronic back and hip pain from [facility] rehab who comes in for an evaluation of being found to be altered at the care home. Patient was found to be confused and away from her baseline. Family had noted that patient has not been eating well at the care home and that she takes oxycodone for pain management. At the time of evaluation, patient was ANO x 1. At the time of presentation in the ED, patient was initially will be stroke rule out, however initial imaging was negative. ICU was consulted for further management of severe hyperkalemia requiring hemodialysis. Nephrology was consulted, Dr Mccauley recommended admission for hemodialysis. Vas-Cath was placed by interventional radiology. Patient to continue with hemodialysis at this time. Patient had acute encephalopathy, bleeding differentials at this time related to uremia, hepatic encephalopathy or opioid overdose. Will continue hemodialysis, continue with lactulose and further workup patient's acute encephalopathy. Left bundle branch block seen on EKG, will order a.m. troponin, patient is not complaining of chest pain at this time. #Acute encephalopathy #Left bundle branch block #Acute decompensated liver failure #History of YODER #Transaminitis #Hyperbilirubinemia #Acute renal failure #Severe hyperkalemia #Metabolic acidosis #Lactic acidosis #Hyperphosphatemia #Hypermagnesemia #Leukocytosis #Coagulopathy Dominick Mejia, PGY-2 Internal Medicine Documentation for date of: 03/01/25 HPI History of Present Illness History of present illness: 70-year-old female with a history of chronic kidney disease (CKD), cirrhosis, hypothyroidism, recent giardia infection, and chronic back pain (oxy q4), was recently admitted with severe hyperkalemia (K 7.1), KADI, and generalized weakness, who [facility]. ED Course Summary Vitals: BP 87/60 HR 82 RR 19 T 97.6F O2 sat 93% 2L NC Labs: WBC 18.9 PT 16.1 INR 1.6 APTT 34.5, Na 130 K 7.7 HCO3 19 BUN 102 Cr 3.7 Ca 8.2 Mg 3.2 T Bili 1.6 AST 124 ALT 47 ALP 483 Ammonia 178 Procal 4.5 TSH 8.58 UA Leukocyte esterase + WBC 157 Sq Epithelial cells 15 bacteria +3 ABG pH 7.37 pCO2 34 pO2 99 HCO3 20 O2 sat 98% EKG new LBBB HR 88 QRSd [address] negative for acute hemorrhage, mass effect or midline shift Head/Neck CTA Parenchymal disease in RUL, no significant arterial stenoses, no cerebral large vessel arterial occlusions or thrombus Treatment: LR 1.7 L, sodium bicarbonate 50meq, insuling regular 10, calcium chloride 10ml, Dextrose 50 ml, albuterol 10mg, dextrose 50ml, Calcium chloride 10ml, sodium bicarbonate 50ml, sodium polystyrene sulfonate 15g, LR 1 L, zosyn 4.5 g, CaCl 10ml, lactulose 10g, sodium bicarbonate 50 meq, dextrose 50ml, insulin regular 6 units, sodium polystyrene sulfonate 15g Consults and why: tele neuro for c/f stroke, therapy aide Dr. Mccauley for HDS Patient is known to the interviewer who admitted her in January with a very similar presentation, however this time her mentation is much worse. AOx0 GCS 11 (E 4 S 3 M 4). Her was at bedside to assist with interview but he had little to no information. Most of history was gathered per chart review. From what can be gathered, she was returning to her normal baseline at the facility, however, the day prior she felt nauseas and she stopped eating and drinking yesterday. She was found to be repeating herself and yelling at the facility. Patient in the same state currently, with her eyes wide open, non blinking, and repeatedly yelling or repeating the questions asked to her. At times she seems to acknowledge her , however she does not respond to commands. 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 Exam Vital Signs Temp Pulse Resp BP Pulse Ox O2 Del Method O2 Flow Rate 96.4 F L 93 24 H 105/81 93 L Nasal Cannula 6 03/01/25 11:03 03/01/25 11:07 03/01/25 11:07 03/01/25 11:03 03/01/25 11:07 03/01/25 11:03 03/01/25 11:07 Narrative Exam GENERAL APPEARANCE: AOxO, GCS 11. Appears to be in distress, bed bound, obese, no cyanosis, pallor, or diaphoresis. HEENT: Normocephalic atraumatic, no facial trauma, neck is supple. L ids/conjunctiva glossy and non-blinking. Mucous membranes dry, nares normal, lips/teeth normal uvula midline without oral pharyngeal erythema, exudate or swelling TMs normal bilaterally. No lymphangitis/lymphedema. CARDIAC: tachycardic, S1+S2 heard. No murmurs, rubs, or gallops noted RESPIRATORY: respiratory effort normal, no accessory muscle use. Minor wheezes auscultated bilaterally ABDOMINAL: NBS. Soft, ND, NTTP. No evidence of fluid wave. No pulsatile masses on exam, rebound tenderness, Cade sign or pain over Mcburney's point. MUSCLES/EXTREMITIES: No abnormal range of motion. +2 pedal edema up to upper calf DERM: Rashes on chest, and few lesions in inguinal canal. Large sacral decubitus ulcer stage 1, no skin brakage or oozing, pink fibrous scar tissue. NEUROLOGICAL: Speech is clear and appropriate. Normal level of consciousness. Gait and coordination are normal. 5/5 strength in all extremities. PSYCH: Normal mood and affect. Judgement/competence is appropriate RENAL: (-) CVA tenderness Results: Labs 03/02/25 04:48 03/02/25 08:45 Labs: Short CBC 03/01/25 Range/Units 08:29 WBC 18.9 H (3.6-11.0) Thou/mm3 Hgb 15.1 (12.0-16.0) g/dL Hct 45.3 (36.0-46.0) % Plt Count 260 D (140-440) Thou/mm3 BMP 03/01/25 08:29 Sodium 130 L Potassium 7.7 H* Chloride 98 Carbon Dioxide 19.0 L BUN 102 H* Creatinine 3.7 H Glucose 72 L Calcium 8.2 L Cardiac Enzymes 03/01/25 Range/Units 08:29 Troponin I 0.034 (0.0-0.045) ng/mL Liver Function 03/01/25 Range/Units 08:29 Total Bilirubin 1.6 H (0.3-1.2) mg/dL AST 124 H (0-34) U/L ALT 47 (10-49) U/L Alkaline Phosphatase 483 H (46-116) U/L Albumin 2.8 L (3.4-4.8) gm/dL Urine 03/01/25 Range/Units 08:11 Urine Color Yellow (Lt Yel-Yel) Urine Clarity Hazy (Clear/Hazy) Urine pH 5.5 (5.0-7.0) Ur Specific [place] 1.018 (1.001-1.035) Urine Protein Negative (Neg - Trace) Urine Glucose (UA) Negative (Negative) ABG Interpretation ABG results: 03/01/25 09:05 ABG pH 7.37 ABG pCO2 34 ABG pO2 99 ABG HCO3 20 ABG O2 Saturation 99 H ABG Base Excess -5 L Quality Measures Quality Measures VTE prophylaxis Advance care planning discussed with:: patient Medications Home Medications and Allergies Home Medications ?Medication ?Instructions ?Recorded ?Confirmed ?Type allopurinol 100 mg tablet 100 mg PO DAILY 12/04/24 History Held on 02/20/25. Instructions: Resume on 03/06/25. hold until pcp f/u held due to kadi resume once cr improves amitriptyline 25 mg tablet 25 mg PO DAILY 12/04/24 History amlodipine 5 mg tablet 5 mg PO DAILY 12/04/2402/18 History Allergies Allergy/AdvReac Type Severity Reaction Status Date / Time No Known Allergies Allergy Verified 12/07/24 14:34 Visit Medications Dextrose (D5w) 1,000 mls @ 100 mls/hr IV .Q10H RAMON Stop: 03/31/25 08:44 Last Admin: 03/01/25 09:17 Dose: Not Given Sodium Chloride (Sodium Chloride Rt Rosario 0.9% 3 Ml Nebu) 3 ml INH PRN PRN PRN Reason: SOLN Stop: 03/31/25 11:01 Discontinued Medications Albuterol (Albuterol Rt 2.5 Mg/0.5 Ml Nebu) 2.5 mg INH X1 ONE Stop: 03/01/25 10:49 Albuterol (Albuterol Rt 2.5 Mg/0.5 Ml Nebu) 10 mg INH X1 ONE Stop: 03/01/25 11:03 Last Admin: 03/01/25 11:06 Dose: 10 mg Calcium Chloride (Calcium Chloride 10% Inj 10 Ml Syrg) 10 ml IV X1 ONE Stop: 03/01/25 09:46 Last Admin: 03/01/25 09:53 Dose: 10 ml Calcium Chloride (Calcium Chloride 10% Inj 10 Ml Syrg) 10 ml IV X1 ONE Stop: 03/01/25 10:43 Last Admin: 03/01/25 11:38 Dose: 10 ml Dextrose (Dextrose 50%-Water Inj 50 Ml Syringe) 50 ml IVP X1 ONE Stop: 03/01/25 09:38 Last Admin: 03/01/25 09:54 Dose: 50 ml Dextrose (Dextrose 50%-Water Inj 50 Ml Syringe) 50 ml IVP X1 ONE Stop: 03/01/25 10:35 Last Admin: 03/01/25 11:34 Dose: 50 ml Sodium Chloride (Ns) 1,000 mls @ 1,000 mls/hr IV .Q1H ONE Stop: 03/01/25 09:16 Last Admin: 03/01/25 09:17 Dose: Not Given Lactated Ringer's (Lactated Ringers) 1,710 mls @ 1,710 mls/hr 30 ml/kg infuse over 60 min (1710 ml) IV .Q1H ONE Stop: 03/01/25 10:01 Last Admin: 03/01/25 09:17 Dose: Not Given Piperacillin/Tazobactam/Dextrose (Zosyn) 3.375 gm in 50 mls @ 100 mls/hr IV X1 ONE Stop: 03/01/25 09:31 Last Admin: 03/01/25 09:17 Dose: Not Given Lactated Ringer's (Lactated Ringers) 1,710 mls @ 1,710 mls/hr 30 ml/kg infuse over 60 min (1710 ml) IV .Q1H ONE Stop: 03/01/25 10:14 Last Infusion: 03/01/25 10:30 Dose: Infused Calcium Chloride 10 ml/ (Dextrose) 110 mls @ 110 mls/hr IV X1 ONE Stop: 03/01/25 10:36 Insulin Human Regular (Insulin Hum Regular 1 Unit/0.01 Ml (Per Unit)) 10 unit IV X1 ONE Stop: 03/01/25 09:38 Last Admin: 03/01/25 09:53 Dose: 10 unit Insulin Human Regular (Insulin Hum Regular 1 Unit/0.01 Ml (Per Unit)) 6 unit IV X1 ONE Stop: 03/01/25 10:35 Last Admin: 03/01/25 11:39 Dose: Not Given Sodium Bicarbonate (Sodium Bicarb Inj 8.4% 1 Meq/Ml 50 Ml Vial) 50 meq IV X1 ONE Stop: 03/01/25 09:38 Last Admin: 03/01/25 09:53 Dose: 50 meq Sodium Bicarbonate (Sodium Bicarb Inj 8.4% 1 Meq/Ml 50 Ml Vial) 50 meq IV X1 ONE Stop: 03/01/25 10:35 Sodium Bicarbonate (Sodium Bicarb Inj 8.4% Syr 50 Ml Syringe) 50 ml IV X1 ONE Stop: 03/01/25 11:47 Sodium Chloride (Sodium Chloride Rt Rosario 0.9% 3 Ml Nebu) 3 ml INH PRN PRN PRN Reason: SOLN Stop: 03/31/25 10:47 Sodium Polystyrene Sulfonate (Sod Polystyrene Sulfon Susp 15 Gm/60 Ml Btl) 15 gm NG X1 ONE Stop: 03/01/25 10:35 Assessment & Plan Plan 70-year-old female with a history of chronic kidney disease (CKD), cirrhosis, hypothyroidism, recent giardia infection, and chronic back pain (oxy q4), was recently admitted with severe hyperkalemia (K 7.1), KADI, and generalized weakness, who presented today from [facility] due to encephalopathy. Dialysis catheter has been placed, patient has recieved dialysis, and she is started on low dose levophed due to low MAP. 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 She is constantly repeating herself, shouting, and unable to respond to questions. Ammonia levels elevated. BUN 102. Takes oxy Q4 for pain. Plan: -lactulose 20g NG Q2hr, stop at 5 BMs -Emergent dialysis CV #New LBBB QTc 551 HR 88 Most likely secondary hyperkalemia Hyperkalemia cocktail given. Patient in emergent HDS Plan: -Repeat EKG following HDS -ECHO -Trops PULM #Acute hypoxic respiratory failure Ddx asthma, new onset HF Patient 93% O2 on 2L NC. Procal 4.5. Chest xray not concerning for pneumonia or COPD. Bilateral wheezes heard on exam. No crackles appreciated. says that patient has recently experienced SOB in the morning. Has bilateral pedal edema most likely gravitational, but possible due to HF, however troponins within normal limits. Plan: -Duoneb Q4HRRT -Re-evaluate in AM following HDS GI #Hx of YODER, confirmed with biopsy Patient has elevated ammonia levels. ascitic fluid in abdomen. Plan: -lactulose 20g NG Q2hr, stop at 5 BMs -Hepatitis acute panel #Transaminitis ddx YODER ALP 483 AST 124 Plan: -CTM #Hyperbilirubinemia T Bili 1.2 Most likely in the setting of stress and poor PO intake/volume depletion. Recent abd US showed no stones. No fever, no jaundice seen. Plan: -CTM for abdominal pain when patient is more oriented. RENAL #KADI on CKD stage IIIB DDx most likely 2/2 hypertension, patients A1C 5 BUN 102 Cr 3.7 Plan: -Nephro consulted (Dr. Mccauley) -HDS #Hyperkalemia - improving Ddx KADI on CKD Plan: -CTM with repeat renal panels -Kayexelate -Insulin -Calcium gluconate No active problems ENDO #Hx of Hypothyroidism TSH 8.58, actually much improved from most recent admission. Plan: -re-evaluate thyroid functioning in 6 weeks outpatient following thyroid medication changes HEME #Leukocytosis DDx most likely reactive to stress, could be 2/2 infection procal elevated, UA dirty Plan: -Repeat UA -Trend WBC -No abx indicated at this time ID No active problems Patient examined and plan discussed with attending Dr. Myrick and supervising resident Dr. Mejia. Note Written by Andrey Nova PGY-1 Attending Provider Attestation/Addendum Patient seen and examined. Discussed with resident. In brief this is a 70-year-old female who was brought into the hospital for altered mental status. She is brought in from a care home. She has a history of Yoder cirrhosis. We were called by the ER for hyperkalemia and altered mentation. In the ED she was awake and groaning, able to answer yes and no however unreliably. On exam she has a GCS of 12-13 and is very confused and slightly agitated. She is super morbidly obese. Her lungs are diminished with expiratory wheezes heard, she does have some increased work of breathing, heart rate regular and rhythmic, abdomen is obese soft and nontender, lower extremities with significant edema, pulses palpable, moves all 4 extremities. She was noted to have a potassium of 7.7 on original labs and she was given insulin, D50, albuterol. An NG tube was placed for Kayexalate as well. Repeat labs were obtained and she was still found to have an elevated potassium with a left bundle branch block on EKG. Nephrology was consulted. The decision was made for emergent dialysis. A line was placed with the assistance of IR and the patient underwent emergency dialysis. The patient came hypotensive during dialysis requiring vasopressor support. On arrival she also presented with an acute on chronic kidney disease and poor urinary output. A Falcon was placed for I's and O's. She is noted to have an elevated lactate in the setting of KADI and cirrhosis. On arrival her ammonia level was 130 and she was started on lactulose. No obvious GI bleed. Monitor H&H. She originally presents with a significant nongap acidosis. Case discussed with ICU and ER Labs, imaging and records reviewed Approximately 63 critical care minutes required for evaluation, exam, review, dimension, discussion formulation of plan of care for this critically ill patient with hyperkalemia and EKG changes along with decompensated cirrhosis at high risk for further ongoing decompensation.
[2025-03-01 11:49] LABS: Anion Gap 10 (7-16); BUN/Creatinine Ratio 20 Ratio (12-20); Blood Urea Nitrogen 71 mg/dL (9-23); Calcium 8.8 mg/dL (8.3-10.6); Carbon Dioxide 16.9 mMol/L (20.0-31.0); Chloride 101 mMol/L (98-107); Creatinine (Component) 3.6 mg/dL (0.6-1.3); Estimated Creatinine Clearance 19.9 mL/min (>60); Glucose 72 mg/dL (74-106); Osmolality,Calculated 276 (275-295); Sodium 128 mMol/L (136-145); eGFR 13 See Note
[2025-03-01 11:51] LABS: Potassium 6.8 mMol/L (3.4-5.1)
[2025-03-01] MEDS: Sodium Bicarb Inj 8.4% SYR 50 ML SYRINGE IV (11:54)
[2025-03-01] MEDS: SOD POLYSTYRENE SULFON SUSP 15 GM/60 ML BTL NG (12:08)
[2025-03-01] MEDS: RINGERS LACTATED 1000 ML 1,000 ML 999 ML IV ×2 (12:15→15:07)
[2025-03-01] MEDS: PIPER/TAZO INJ 4.5 GM in SODIUM CHLORIDE 0.9% (POP) 100 ML IV (13:15)
[2025-03-01] MEDS: LACTULOSE SYRUP 20 GM/30 ML UDC 10 GM NG (13:39)
[2025-03-01] MEDS: INSULIN HUM REGULAR 1 UNIT/0.01 ML (PER UNIT) 6 UNIT IV (13:52)
[2025-03-01] MEDS: SOD POLYSTYRENE SULFON SUSP 15 GM/60 ML BTL PO (13:55)
[2025-03-01 14:23] LABS: Lactate (Lactic Acid) 6.8 mMol/L (0.4-2.0)
[2025-03-01] MEDS: LIDOCAINE INJ PF 1% 30 ML VIAL INFL (14:55)
[2025-03-01] MEDS: HEPARIN SOD LOCK SYR 100 UNIT/ML 500 UNIT STFIELD (14:55)
[2025-03-01 15:06] LABS: Albumin, Serum 2.5 gm/dL (3.4-4.8); Anion Gap 15 (7-16); BUN/Creatinine Ratio 24 Ratio (12-20); Blood Urea Nitrogen 87 mg/dL (9-23); Calcium 9.5 mg/dL (8.3-10.6); Calcium (Corrected) 10.7 mg/dL (8.5-10.1); Carbon Dioxide 17.5 mMol/L (20.0-31.0); Chloride 100 mMol/L (98-107); Creatinine (Component) 3.6 mg/dL (0.6-1.3); Estimated Creatinine Clearance 19.9 mL/min (>60); Glucose 164 mg/dL (74-106); Magnesium 3.0 mg/dL (1.6-2.6); Osmolality,Calculated 295 (275-295); Phosphorous 7.5 mg/dL (2.4-5.1); Procalcitonin 4.50 ng/ml (0.0-0.49); Sodium 132 mMol/L (136-145); eGFR 13 See Note
[2025-03-01 15:08] LABS: Potassium 6.2 mMol/L (3.4-5.1)
[2025-03-01] MEDS: ALBUTEROL/IPRATROPIUM (Duoneb) RT SOL 3 ML NEBU INH ×2 (15:48→22:35)
--- NOTE | 2025-03-01 16:05 | PD.RESPROC ---
PROCEDURES: Procedure Date / Time 03/01/25 1605 Central Line Placement Right IJ: Indication(s): other Informed consent obtained: obtained from surrogate decision maker Time out done, and the following verified: correct patient, side and site, procedure, patient position and implants and/or equipment Patient placed on monitor/pulse ox: Yes Hand Hygiene: scrub, soap & water and alcohol-based hand rub Max Sterile Barrier Techniques used: cap, mask, sterile gown, sterile gloves and sterile full body drape Central line prep: Povidone-Iodine 1%, Chlorhexidine scrub and sterile drapes applied Local anesthesia used: lidocaine 1% Amount of anesthesia used (mL): 10 Ultrasound used for placement: Yes Sterile Technique if Ultrasound used, including sterile gel: yes Central line lumen inserted: double Post procedure: good blood return, all ports aspirated, flushed, capped and sterile dressing applied Post procedure x-ray: tip of catheter in good position and no pneumothorax seen Patient tolerated procedure: well and no complications EBL(ml): 5 Complications: none Procedure comment: The [facility] Central Line Insertion Practices form was completed by Dr. Andrey Bhatt and Dr. Carballo during and immediately following the procedure. A time out was performed. My hands were washed immediately prior to the procedure. I wore a surgical cap, mask with full gown and sterile gloves throughout the procedure. The patient was placed in Trendelenburg position. The Right neck was prepped using chlorhexidine scrub and draped in sterile fashion using a three quarter sheet drape and sterile towels. Skin preparation was allowed to dry prior to skin puncture. Anatomic landmarks were identified. Anesthesia was achieved over the vein using 1% lidocaine. Using real-time ultrasound, with sterile probe cover and sterile gel, the introducer needle was inserted into the vein under direct ultrasound visualization. Venous blood was withdrawn. The syringe was removed and a guidewire was advanced into the introducer needle. The guidewire was visualized in the appropriate vein by ultrasound. A small incision was made at the skin surface with a scalpel and the introducer needle was exchanged for a dilator over the guidewire. After appropriate dilation was obtained, the dilator was exchanged over the wire for an central venous catheter. The wire was removed and a biopatch was placed at the insertion site. A sterile op-site was placed over the catheter and biopatch. The patient tolerated the procedure without any hemodynamic compromise. At time of procedure completion, all ports aspirated and flushed properly. Post-procedure chest x-ray : Shows adequate positioning of the catheter for use.
[2025-03-01 16:09] LABS: Base Excess -7 (-3-3); HCO3 18 mEq/L (20-26); Inspired O2, VO2 Liters 6 L/min; O2 Saturation 98 % (91-98); PCO2 34 mmHg (32.0-48.0); PO2 99 mmHg (83-108); pH, Arterial 7.33 (7.35-7.45)
[2025-03-01 16:10] LABS: Allen Test Performed/OK; Puncture Site Right Radial
[2025-03-01 16:39] LABS: Hepatitis A Antibody IgM Non Reactive (Non React)
[2025-03-01 16:44] LABS: Hepatitis B Core Antibody IgM Non Reactive (Non React); Hepatitis C Antibody Non Reactive (Non React)
[2025-03-01 16:46] LABS: Hepatitis B Surface Antigen Non Reactive (Non React)
[2025-03-01 17:17] LABS: Hematocrit 43.1 % (36.0-46.0); Hemoglobin 13.8 g/dL (12.0-16.0)
[2025-03-01 17:23] LABS: Reflex Lactate? Y
[2025-03-01] MEDS: ALBUMIN HUMAN-KJDA 25% IVPB 25 GM/100 ML BTL IV ×2 (17:32→17:34)
[2025-03-01 17:47] LABS: Albumin, Serum 2.4 gm/dL (3.4-4.8); Anion Gap 16 (7-16); BUN/Creatinine Ratio 23 Ratio (12-20); Blood Urea Nitrogen 81 mg/dL (9-23); Calcium 9.1 mg/dL (8.3-10.6); Calcium (Corrected) 10.4 mg/dL (8.5-10.1); Carbon Dioxide 15.6 mMol/L (20.0-31.0); Chloride 101 mMol/L (98-107); Creatinine (Component) 3.6 mg/dL (0.6-1.3); Estimated Creatinine Clearance 19.9 mL/min (>60); Glucose 96 mg/dL (74-106); Magnesium 2.9 mg/dL (1.6-2.6); Osmolality,Calculated 290 (275-295); Phosphorous 7.2 mg/dL (2.4-5.1); Sodium 133 mMol/L (136-145); eGFR 13 See Note
[2025-03-01 17:50] LABS: Potassium 6.4 mMol/L (3.4-5.1)
[2025-03-01 17:51] LABS: Lactic Acid, 3 HR 7.9 mMol/L (0.4-2.0)
--- NOTE | 2025-03-01 18:36 | ECHO_ITS ---
Patient Info Name: Elle Poe Age: 70 years : 1955 Gender: Female Ht: 165 cm Wt: 125 kg BSA: 2.47 m2 BP: 121 / 80 mmHg HR: 106 bpm Exam Date: 03/02/2025 7:23 AM Admit Date: 03/01/2025 Site: [facility] Room Number: 256 Patient Status: I Technical Quality: Poor Exam Type: CA echo doppler complete Reason for Poor Study: poor patient cooperation Lehr Tender: Mary Gray Ordering Physician: Andrey Bhatt Study Info Indications New LBBB - Primary Location: S2SX Left Ventricular Outflow Tract Name Value Normal LVOT 2D LVOT Diameter 1.9 cm LVOT Doppler LVOT Peak Velocity 95 cm/s LVOT Mean Gradient 2 mmHg LVOT VTI 16 cm LVOT VTI/AV VTI Ratio 0.9 LVOT Stroke Volume 46 ml Pulmonic Valve Name Value Normal PV Doppler PV Peak Velocity 102 cm/s Mitral Valve Name Value Normal MV Doppler MV Decel Wilkinson 925 cm/s2 MV PHT 29 ms MV Area (PHT) 7.7 cm2 4.0-5.0 MV Diastolic Function MV E Peak Velocity 91 cm/s MV A Peak Velocity 54 cm/s MV E/A 1.7 Tricuspid Valve Name Value Normal TV Regurgitation Doppler TR Peak Velocity 189 cm/s Estimated PAP/RSVP RA Pressure 4 mmHg <=5 PA Systolic Pressure 20 mmHg <36 RV Systolic Pressure 18 mmHg <36 Aortic Valve Name Value Normal AV 2D/MM AV Cusp Sep (MM) 1.9 cm AV Doppler AV Peak Velocity 151 cm/s AV Mean Gradient 5 mmHg AV VTI 19 cm AV Area (Cont Eq VTI) 2.5 cm2 >=3.0 AV Area (Cont Eq Vincenzo) 1.8 cm2 AV DI (Vincenzo) 0.63 AV Regurgitation 2D LVOT Area 2.8 cm2 Ventricles Name Value Normal LV Dimensions 2D/MM IVS Diastolic Thickness (2D) 0.8 cm 0.6-0.9 LVID Diastole (2D) 3.6 cm 3.8-5.2 LVIW Diastolic Thickness (2D) 1.4 cm 0.6-0.9 LVID Systole (2D) 2.9 cm 2.2-3.5 LVOT Diameter 1.9 cm LV Mass (2D Cubed) 124.12 g 67.00-162.00 LV Mass Index (2D Cubed) 50 g/m2 43-95 Relative Wall Thickness (2D) 0.78 <=0.42 IVS/LVIW Diastolic Thickness (2D) 0.57 0.00-1.50 LV Fractional Shortening/Ejection Fraction 2D/MM LV Fractional Shortening (2D) 19 % 27-45 LV EF (2D Teichholz) 41 % Left Ventricle Left ventricular chamber dimension is normal. Left ventricular systolic function is mildly reduced with visually estimated ejection fraction of 50-55%. There is concentric remodeling noted in the left ventricle. Left ventricular segmental wall motion is normal. There is normal diastolic function in the left ventricle. Right Ventricle Right ventricular chamber dimension is normal. Right ventricular systolic function is normal. Left Atrium Left atrial chamber dimension is normal. Right Atrium Right atrial chamber dimension is normal. Aortic Valve The aortic valve is trileaflet. There is moderate aortic valve sclerosis. There is no aortic valve stenosis with a peak velocity of 151 cm/s, mean gradient of 5 mmHg, and aortic valve area of 2.5 cm2. There is no aortic valve regurgitation. Pulmonic Valve The pulmonic valve is normal. There is no pulmonic valve stenosis. There is no pulmonic regurgitation. Mitral Valve The mitral valve has normal leaflets. There is no mitral valve stenosis. There is mild mitral valve regurgitation. Tricuspid Valve The tricuspid valve leaflets are normal. There is no tricuspid valve stenosis. There is mild tricuspid valve regurgitation. No pulmonary hypertension, estimated pulmonary arterial systolic pressure is 20 mmHg and systemic blood pressure of 121 mmHg in systole. Pericardium/Pleural The pericardium appears normal. There is no pericardial effusion. No pleural effusion visualized. Inferior Vena Cava Not well visualized inferior vena cava with >50% collapse upon inspiration consistent with normal right atrial pressure, 4 mmHg. Aorta The aortic measurements are indexed to age and body surface area. The aortic root at the sinus of Valsalva is not well visualized. The prox ascending aorta is not well visualized. Summary 1. Left ventricle size is normal and systolic function is mildly reduced. Estimated ejection fraction is 50-55%. There is normal diastolic function. 2. The right ventricle is not well visualized. 3. There is mild mitral valve regurgitation. 4. There is mild tricuspid valve regurgitation. 5. The left atrium not well visualized. The right atrium not well visualized. 6. Not well visualized IVC. Report Signatures Finalized by Taras Ya on 03/02/2025 04:27 PM
[2025-03-01] MEDS: HEPARIN SOD INJ 5000 UNIT/ML VIAL SC (20:35)
[2025-03-01] MEDS: LACTULOSE SYRUP 20 GM/30 ML UDC NG ×2 (20:35→22:29)
--- NOTE | 2025-03-01 21:27 | XR_ITS ---
Examination: Retroperitoneal ultrasound, complete Technique: Multiple high resolution grayscale images of the retroperitoneum obtained, including kidneys and bladder. Exam date and time: March 01, 2025, 2954 hours INDICATIONS: Abnormal renal function studies on laboratory examination today. FINDINGS: Right kidney 8.4 cm renal cortex 1.0 cm Left kidney obscured by bowel gas No diagnostic visualization of the urinary bladder IMPRESSION: Limited study Small right kidney with renal cortical thinning No right hydronephrosis No diagnostic visualization left kidney Ascites
[2025-03-01 22:24] LABS: Free T4 (Free Thyroxine) 1.17 ng/dL (0.89-1.76); Thyroid Stimulating Hormone 7.87 uIU/mL (0.55-4.78)
--- NOTE | 2025-03-01 22:33 | ESCONSULT_ITS ---
RE: KOMAL GARCIA : 1955 DATE OF CONSULTATION: 03/01/2025 REASON FOR REFERRAL: Acute kidney injury and chronic kidney disease. REFERRING PHYSICIAN: Dr. Lake HISTORY OF PRESENT ILLNESS: This patient is a 70-year-old woman with past medical history significant for hypertension, liver cirrhosis, hypothyroidism, obesity, and stage IV CKD at least since 12/2024 to 01/2025 whose baseline serum creatinine is anywhere from 1.8 to 2.8 who was just discharged from [place] 5 days ago and was sent to [facility]. According to her , patient has been not herself in the past 5 days. Prior to that, patient was awake, alert, and interactive. Her said that patient has been taking a lot of oxycodone/acetaminophen for her chronic back pain. A month ago, patient was also admitted with hyperkalemia. During that time, she was hydrated and given anti-hyperkalemic agents and potassium level improved. Patient during that admission also had a bilateral kidney ultrasound on 01/2025, which revealed a right kidney measuring 6.9 cm and a left kidney measuring 8.5 cm. Patient also has bilateral cortical thinning consistent with chronic kidney disease. When she arrived at the hospital today, she was found with a BUN of 102, creatinine of 3.7, and a potassium of 7.7. Patient was given Kayexalate, sodium bicarb, calcium chloride, albuterol 10 mg via nebulizer and brought down her potassium level to 6.8. Patient also had an elevated ammonia level of 178. According to her , prior to going to [facility], patient was coherent. When she presented today in ER, she was found with leukocytosis and mildly elevated procalcitonin level. Lactic acid was also found elevated at 7.9. Calcium was also elevated at 10.7, possibly from IV calcium, which was provided to prevent arrhythmia due to hyperkalemia. Patient is also oliguric upon presentation. I was asked to see the patient to address and manage her acute kidney injury on chronic kidney disease and persistent hyperkalemia. Patient will be admitted to ICU and patient will be started on dialysis. Patient had a dialysis catheter placement by Dr. Haji earlier. PAST MEDICAL HISTORY: As previously mentioned, liver cirrhosis, hypertension, hypothyroidism, chronic back pain, history of L4 vertebrae compression fracture. ALLERGIES: NO KNOWN DRUG ALLERGIES. MEDICATIONS: At [facility] includes: Allopurinol 100 mg p.o. daily, oxycodone/acetaminophen, amitriptyline, MiraLax, simethicone, Protonix 40 mg p.o. daily, levothyroxine 150 mcg daily, docusate sodium, bisacodyl, amlodipine 5 mg daily, amitriptyline 25 mg daily. Current medications include heparin 5000 units subcutaneously q. 12 hours, acetaminophen, albumin, albuterol nebulization, calcium chloride, Regular insulin 10 units x1, Levophed drip, Zofran 4 mg IV q. 6 hours, sodium bicarb, and Zosyn 4.5 grams IV x1 and 3.375 grams IV x1. PHYSICAL EXAMINATION: GENERAL: Patient is very confused. VITAL SIGNS: Blood pressure of 129/68, heart rate of 93, temperature 97.2. HEENT: Anicteric sclerae, normocephalic. NECK: Supple. No JVD. CHEST AND LUNGS: Symmetrical expansion, clear breath sounds. CARDIAC: Sounds without murmur. ABDOMEN: Soft and nontender, distended. EXTREMITIES: No edema on both lower extremities. PSYCHIATRIC: Patient is very confused. LABORATORY DATA: Sodium 128, potassium 6.8, chloride 101, CO2 16.9, BUN of 71, creatinine 3.6, glucose of 72. Lactic acid of 6.8. Hemoglobin 15.1, WBC 18,900, platelet count 260,000. IMAGING DATA: Chest x-ray, prominent vascular congestion including central vascular engorgement. Head and neck CTA, parenchymal disease in the right upper lobe. ASSESSMENT: 1. Oliguric acute kidney injury, most likely secondary to acute tubular necrosis, following hemodynamic instability and hypoperfusion and hypotension. 2. Stage IV chronic kidney disease. 3. Altered level of consciousness, most likely secondary to uremic encephalopathy, hepatic encephalopathy possibly drug induced namely amitriptyline and oxycodone/acetaminophen at [facility]. 4. Severe hyperkalemia secondary to acute kidney injury. 5. Sepsis secondary to pneumonia. 6. Obesity. 7. Lactic acidosis, most likely sepsis related. PLAN: At this point, patient is critically ill and will need hemodialysis as soon as possible to address severe hyperkalemia and uremic encephalopathy. Patient will be provided increment doses of dialysis treatments for the next 3 days. gave consent to start dialysis. Risks related to dialysis (low BPs, bleeding, infection) were discussed with the by the bedside. Most likely, patient will need vasopressors to keep blood pressure at a decent level for dialysis to happen. I agree with starting her on broad-spectrum IV antibiotics, continue supportive treatment, continue vasopressors. Next dialysis will be tomorrow. DT: 21:52:57 TT: 22:32:00 Ref: [id number] - TID: [id number] MTDD
[2025-03-01 23:16] LABS: Albumin, Serum 3.1 gm/dL (3.4-4.8); Anion Gap 14 (7-16); BUN/Creatinine Ratio 21 Ratio (12-20); Blood Urea Nitrogen 75 mg/dL (9-23); Calcium 9.1 mg/dL (8.3-10.6); Calcium (Corrected) 9.8 mg/dL (8.5-10.1); Carbon Dioxide 21.9 mMol/L (20.0-31.0); Chloride 99 mMol/L (98-107); Creatinine (Component) 3.5 mg/dL (0.6-1.3); Estimated Creatinine Clearance 20.5 mL/min (>60); Glucose 87 mg/dL (74-106); Magnesium 3.1 mg/dL (1.6-2.6); Osmolality,Calculated 291 (275-295); Phosphorous 6.9 mg/dL (2.4-5.1); Potassium 6.0 mMol/L (3.4-5.1); Sodium 135 mMol/L (136-145); eGFR 14 See Note
[2025-03-01] MEDS: Norepinephrine/D5W 8mg/250ml 8 MG/250 ML BAG 11.737 MG IV (23:50)
[2025-03-02] VITALS (187 sets, daily range): BP systolic 65–155; BP diastolic 43–111; PULSE 71–113; RESP 14–41; TEMP 36–36.9; O2SAT 19–99; BMI 48.6
[2025-03-02] MEDS: HEPARIN SOD INJ 1000 UNIT/ML VIAL 10 ML 3100 UNIT INDWELLCAT ×2 (00:07→16:36)
[2025-03-02] MEDS: LACTULOSE SYRUP 20 GM/30 ML UDC NG ×6 (00:16→10:23)
[2025-03-02 01:52] LABS: Albumin, Serum 3.0 gm/dL (3.4-4.8); Anion Gap 13 (7-16); BUN/Creatinine Ratio 20 Ratio (12-20); Blood Urea Nitrogen 61 mg/dL (9-23); Calcium 8.9 mg/dL (8.3-10.6); Calcium (Corrected) 9.7 mg/dL (8.5-10.1); Carbon Dioxide 21.9 mMol/L (20.0-31.0); Chloride 101 mMol/L (98-107); Creatinine (Component) 3.0 mg/dL (0.6-1.3); Estimated Creatinine Clearance 23.9 mL/min (>60); Glucose 89 mg/dL (74-106); Magnesium 2.9 mg/dL (1.6-2.6); Osmolality,Calculated 288 (275-295); Phosphorous 5.9 mg/dL (2.4-5.1); Potassium 4.8 mMol/L (3.4-5.1); Sodium 136 mMol/L (136-145); eGFR 16 See Note
[2025-03-02] MEDS: ALBUTEROL/IPRATROPIUM (Duoneb) RT SOL 3 ML NEBU INH ×6 (02:24→23:09)
[2025-03-02] MEDS: cefTRIAXone/D5w 1gm IV premix 1 GM/50 ML BAG IV ×2 (04:48→08:21)
--- NOTE | 2025-03-02 05:00 | XR_ITS ---
EXAMINATION: AP chest single view TECHNIQUE: AP portable semiupright chest single view Date and time: March 02, 2025, 0507 hours, comparison March 01, 2025 INDICATIONS: Diagnosis fluid overload FINDINGS: Mild heart failure Mild enlargement cardiac contour Prominent vascular congestion with early septal edema at the lung bases Right internal jugular central line tip right atrium The film is underpenetrated with poor visualization of the orogastric tube IMPRESSION: Mild heart failure
[2025-03-02 05:10] LABS: Lactate (Lactic Acid) 4.2 mMol/L (0.4-2.0)
[2025-03-02 05:13] LABS: Base Excess 0 (-3-3); HCO3 24 mEq/L (20-26); Inspired Oxygen, FIO2 6 %; O2 Saturation 97 % (91-98); PCO2 35 mmHg (32.0-48.0); PO2 82 mmHg (83-108); pH, Arterial 7.44 (7.35-7.45)
[2025-03-02 05:15] LABS: Allen Test Performed/OK; Puncture Site Right Radial
[2025-03-02 05:16] LABS: Basophils # (Auto) 0.1 Thou/mm3 (0.0-0.2); Basophils % (Auto) 0 % (0-2.5); Eosinophils # (Auto) 0.0 Thou/mm3 (0.0-0.5); Eosinophils % (Auto) 0 % (0-10); Hematocrit 41.9 % (36.0-46.0); Hemoglobin 13.3 g/dL (12.0-16.0); Immature Granulocytes Auto 0.14 Thou/mm3 (0.00-0.00); Lymphocytes # (Auto) 1.6 Thou/mm3 (1.0-4.8); Lymphocytes % (Auto) 8 % (10-50); Mean Corpuscular HGB Conc 31.7 g/dl (31.0-37.0); Mean Corpuscular Hemoglobin 29.9 pg (25.0-35.0); Mean Corpuscular Volume 94 fL (80-100); Monocytes # (Auto) 1.3 Thou/mm3 (0.0-0.8); Monocytes % (Auto) 6 % (0-12); Neutrophils # (Auto) 18.1 Thou/mm3 (1.8-7.7); Neutrophils % (Auto) 85 % (37-80); Nucleated Red Blood Cell # 0.00 Thou/mm3 (0.00-0.00); Nucleated Red Blood Cell % 0 /100 WBC (0); Platelet Count 150 Thou/mm3 (140-440); RDW Standard Deviation 58.0 fL (36.4-46.3); Red Blood Count 4.45 Miln/mm3 (4.00-5.20); White Blood Count 21.2 Thou/mm3 (3.6-11.0)
[2025-03-02 05:34] LABS: INR 1.7 (0.9-1.3); Partial Thromboplastin Time 31.5 Seconds (22.0-36.0); Prothrombin Time 17.5 Seconds (9.0-12.2)
[2025-03-02 05:52] LABS: Alanine Aminotransferase 45 U/L (10-49); Albumin, Serum 3.0 gm/dL (3.4-4.8); Albumin/Globulin Ratio 1.2 (1.2-2.2); Alkaline Phosphatase 473 U/L (46-116); Anion Gap 15 (7-16); Aspartate Amino Transferase 113 U/L (0-34); BUN/Creatinine Ratio 22 Ratio (12-20); Bilirubin,Total 1.7 mg/dL (0.3-1.2); Blood Urea Nitrogen 71 mg/dL (9-23); Calcium 8.8 mg/dL (8.3-10.6); Calcium (Corrected) 9.6 mg/dL (8.5-10.1); Carbon Dioxide 21.9 mMol/L (20.0-31.0); Chloride 100 mMol/L (98-107); Creatinine (Component) 3.2 mg/dL (0.6-1.3); Estimated Creatinine Clearance 22.4 mL/min (>60); Free T4 (Free Thyroxine) 1.13 ng/dL (0.89-1.76); Globulin 2.6 gm/dL (2.3-3.5); Glucose 100 mg/dL (74-106); Magnesium 2.9 mg/dL (1.6-2.6); Osmolality,Calculated 294 (275-295); Phosphorous 6.1 mg/dL (2.4-5.1); Potassium 5.2 mMol/L (3.4-5.1); Sodium 137 mMol/L (136-145); Total Protein 5.6 gm/dL (5.7-8.2); eGFR 15 See Note
[2025-03-02 06:12] LABS: Troponin I 0.046 ng/mL (0.0-0.045)
[2025-03-02 07:12] LABS: Ammonia 127 uMol/L (11-32)
[2025-03-02 08:02] LABS: Reflex Lactate? Y
[2025-03-02] MEDS: HEPARIN SOD INJ 5000 UNIT/ML VIAL SC ×2 (08:21→20:49)
[2025-03-02 09:10] LABS: Base Excess -1 (-3-3); HCO3 22 mEq/L (20-26); Inspired Oxygen, FIO2 5 %; O2 Saturation 100 % (91-98); PCO2 29 mmHg (32.0-48.0); PO2 130 mmHg (83-108); pH, Arterial 7.48 (7.35-7.45)
[2025-03-02 09:15] LABS: Allen Test Performed/OK; Puncture Site Left Radial
[2025-03-02 09:19] LABS: Lactate (Lactic Acid) 4.4 mMol/L (0.4-2.0)
[2025-03-02] MEDS: Vancomycin Inj 2,000 MG in SODIUM CHLORIDE 0.9% 500 ML 500 ML 150 MG IV (09:49)
[2025-03-02] MEDS: Artificial Tears 225 DROP/15 ML BTL BOTH EYES (09:49)
[2025-03-02 09:58] LABS: Albumin, Serum 2.9 gm/dL (3.4-4.8); Anion Gap 16 (7-16); BUN/Creatinine Ratio 20 Ratio (12-20); Blood Urea Nitrogen 67 mg/dL (9-23); Calcium 9.1 mg/dL (8.3-10.6); Calcium (Corrected) 10.0 mg/dL (8.5-10.1); Carbon Dioxide 19.1 mMol/L (20.0-31.0); Chloride 101 mMol/L (98-107); Creatinine (Component) 3.4 mg/dL (0.6-1.3); Estimated Creatinine Clearance 21.8 mL/min (>60); Glucose 114 mg/dL (74-106); Magnesium 3.0 mg/dL (1.6-2.6); Osmolality,Calculated 292 (275-295); Phosphorous 6.3 mg/dL (2.4-5.1); Potassium 5.4 mMol/L (3.4-5.1); Sodium 136 mMol/L (136-145); eGFR 14 See Note
--- NOTE | 2025-03-02 10:10 | PCS.ST ---
Pt with NGT. Hold swallow evaluation for now. Pt not appropriate at this time. ST will check status in AM.
[2025-03-02 10:14] LABS: Troponin I 0.049 ng/mL (0.0-0.045)
[2025-03-02 12:16] LABS: Reflex Lactate? Y
[2025-03-02] MEDS: ALBUMIN HUMAN-KJDA 25% IVPB 25 GM/100 ML BTL IV ×4 (12:27→23:39)
[2025-03-02] MEDS: OCTREOTIDE ACET INJ 50 mCg/ML VIAL IV (12:30)
[2025-03-02] MEDS: OCTREOTIDE ACET INJ 1,000 MCG in SODIUM CHLORIDE 0.9% 100 ML 5.1 MCG IV (12:31)
[2025-03-02] MEDS: LACTULOSE SYRUP 20 GM/30 ML UDC 30 GM NG ×2 (12:38→15:01)
[2025-03-02 13:27] LABS: Collection Type, Urine Catheter
[2025-03-02] MEDS: MICONAZOLE NITRATE CR 2% 15 GM TUBE TOP ×2 (13:29→21:18)
[2025-03-02] MEDS: PIPER/TAZO 3.375 GM PREMIX 3.375 GM/50 ML BAG IV ×2 (13:29→21:13)
[2025-03-02 13:36] LABS: Bilirubin,Urine Negative (Negative); Blood,Urine 2+ (Negative); Color,Urine Yellow (Lt Yel-Yel); Glucose, Urine Negative (Negative); Hyaline Casts,Urine < 1 /hpf (0-1); Ketones,Urine Negative (Negative); Leukocyte Esterase,Urine Positive (Negative); Nitrite,Urine Negative (Negative); PH,Urine 5.0 (5.0-7.0); Protein,Urine 1+ (Neg - Trace); RBC,Urine 20 /hpf (0-3); Specific Gravity,Urine 1.029 (1.001-1.035); Squamous Epithelial Cell,Urine 2 /hpf (0-5); Urobilinogen,Urine 3.0 mg/dL (0.0-1.0); WBC,Urine 39 /hpf (0-5)
[2025-03-02 13:40] LABS: Clarity,Urine Hazy (Clear/Hazy); Culture Indicated,Urine Yes
[2025-03-02 14:19] LABS: Lactic Acid, 3 HR 3.6 mMol/L (0.4-2.0)
[2025-03-02 14:43] LABS: Albumin, Serum 3.4 gm/dL (3.4-4.8); Anion Gap 14 (7-16); BUN/Creatinine Ratio 20 Ratio (12-20); Blood Urea Nitrogen 65 mg/dL (9-23); Calcium 8.7 mg/dL (8.3-10.6); Calcium (Corrected) 9.2 mg/dL (8.5-10.1); Carbon Dioxide 23.0 mMol/L (20.0-31.0); Chloride 102 mMol/L (98-107); Creatinine (Component) 3.2 mg/dL (0.6-1.3); Estimated Creatinine Clearance 23.2 mL/min (>60); Glucose 108 mg/dL (74-106); Magnesium 2.9 mg/dL (1.6-2.6); Osmolality,Calculated 297 (275-295); Phosphorous 5.8 mg/dL (2.4-5.1); Potassium 4.7 mMol/L (3.4-5.1); Sodium 139 mMol/L (136-145); eGFR 15 See Note
[2025-03-02] MEDS: CIPROFLOXACIN OP SOL 0.3% 5 ML BTL BOTH EYES ×2 (15:01→19:25)
--- NOTE | 2025-03-02 16:11 | PC.DIETICIAN ---
Nutrition recommendations If oral intake is feasible: Renal High Protein (adjust food/liquids as needed). If EN is within plan of care: Nepro at 20 ml/hr via NG tube by pump. Advance 10 ml every 8 hrs to goal rate of 40 ml/hr x 24 hrs. If no IV fluids, water flushes of 25 ml/hr (or per MD).
[2025-03-02 16:37] LABS: Lactate (Lactic Acid) 3.3 mMol/L (0.4-2.0)
[2025-03-02 17:06] LABS: Albumin, Serum 4.0 gm/dL (3.4-4.8); Anion Gap 16 (7-16); BUN/Creatinine Ratio 20 Ratio (12-20); Blood Urea Nitrogen 47 mg/dL (9-23); Calcium 9.1 mg/dL (8.3-10.6); Calcium (Corrected) 9.1 mg/dL (8.5-10.1); Carbon Dioxide 25.3 mMol/L (20.0-31.0); Chloride 101 mMol/L (98-107); Creatinine (Component) 2.3 mg/dL (0.6-1.3); Estimated Creatinine Clearance 31.7 mL/min (>60); Glucose 117 mg/dL (74-106); Magnesium 2.7 mg/dL (1.6-2.6); Osmolality,Calculated 296 (275-295); Phosphorous 4.2 mg/dL (2.4-5.1); Potassium 3.9 mMol/L (3.4-5.1); Sodium 142 mMol/L (136-145); eGFR 23 See Note
[2025-03-02 17:07] LABS: Troponin I 0.048 ng/mL (0.0-0.045)
--- NOTE | 2025-03-02 17:13 | ESPR_ITS ---
Documentation for date of: 03/02/25 Subjective Subjective Interval history: 03/02/2025: Patient examined at bedside today. Patient had dialysis last night, was found to have GPC 1 out of 2 bottles and was started on vancomycin and ceftriaxone, kidney function has improved. Patient had 2 bowel movements overnight as well. Patient's morning labs showed creatinine of 3.2, BUN of 71, potassium 52, white count 21, urine output 525 cc T. bili 1.7, phosphorus 6.1, magnesium 2.9, AST 113, ALT 45. Patient remains to be more altered than yesterday. Family present at bedside, says that she has never seen the patient like this and has been feeling very 6 for the past couple months after she had infected with Giardia a couple months ago, however she is unsure if she has got treatment for it. Exam Vital Signs Temp Pulse Resp BP Pulse Ox O2 Del Method O2 Flow Rate 96.8 F 109 H 18 124/97 H 99 Nasal Cannula 5 03/02/25 17:08 03/02/25 17:08 03/02/25 17:08 03/02/25 17:08 03/02/25 17:08 03/01/25 16:02 03/02/25 17:08 Narrative Exam General: AAOx0, eyes are open, morbidly obese,in distress, open mouth HEENT: Dry mucous membranes, appears to have bacterial conjunctivitis with redness surrounding conjunctiva bilaterally, left pupil fixed and does not react to accommodation Cardiovascular: S1, S2, radial pulses +2 bilat, RRR Pulmonary: Difficulty appreciated breath sounds GI: Abdomen distended, bowel sounds present Extremities: Anasarca, dorsalis pedis pulses +2 bilaterally Neuro: AAOx0, Skin: Right inguinal fold shows draining ulcer that does not appear to be infected at this time, however it appears to be about 2 cm deep, multiple areas of purpura throughout body Psych: Unable to cooperate Objective Labs 03/03/25 07:29 03/03/25 07:29 Labs: Laboratory Results - last 24 hr 03/01/25 03/01/25 03/01/25 17:05 17:32 17:45 WBC RBC Hgb 13.8 Hct 43.1 MCV MCH MCHC RDW Std Deviation Plt Count Neut % (Auto) Lymph % (Auto) [place] % (Auto) Eos % (Auto) Baso % (Auto) Neut # (Auto) Lymph # (Auto) [place] # (Auto) Eos # (Auto) Baso # (Auto) Immature Gran # (Auto) Absolute Nucleated RBC Immature Gran % Nucleated RBC % PT INR APTT Puncture Site ABG pH ABG pCO2 ABG pO2 ABG HCO3 ABG O2 Saturation ABG Base Excess FiO2 Sodium 133 L Potassium 6.4 H* Chloride 101 Carbon Dioxide 15.6 L Anion Gap 16 BUN 81 H Creatinine 3.6 H Estim Creat Clear Calc 19.9 L eGFR 13 L* BUN/Creatinine Ratio 23 H Glucose 96 D Calculated Osmolality 290 Lactic Acid 7.9 H* Calcium 9.1 Corrected Calcium 10.4 H Phosphorus 7.2 H Magnesium 2.9 H Total Bilirubin AST ALT Alkaline Phosphatase Ammonia Troponin I Total Protein Albumin 2.4 L Globulin Albumin/Globulin Ratio TSH 7.87 H Free T4 1.17 Ur Collection Type Urine Color Urine Clarity Urine pH Ur Specific [place] Urine Protein Urine Glucose (UA) Urine Ketones Urine Blood Urine Nitrite Urine Bilirubin Urine Urobilinogen (Auto) Ur Leukocyte Esterase Urine RBC Urine WBC Ur Squamous Epith Cells Urine Bacteria Hyaline Casts Ur Culture Indicated? 03/01/25 03/02/25 03/02/25 22:32 01:05 04:48 WBC 21.2 H RBC 4.45 Hgb 13.3 Hct 41.9 MCV 94 MCH 29.9 MCHC 31.7 RDW Std Deviation 58.0 H Plt Count 150 D Neut % (Auto) 85 H Lymph % (Auto) 8 L [place] % (Auto) 6 Eos % (Auto) 0 Baso % (Auto) 0 Neut # (Auto) 18.1 H Lymph # (Auto) 1.6 [place] # (Auto) 1.3 H Eos # (Auto) 0.0 Baso # (Auto) 0.1 Immature Gran # (Auto) 0.14 H Absolute Nucleated RBC 0.00 Immature Gran % 1 H Nucleated RBC % 0 PT 17.5 H INR 1.7 H APTT 31.5 Puncture Site ABG pH ABG pCO2 ABG pO2 ABG HCO3 ABG O2 Saturation ABG Base Excess FiO2 Sodium 135 L 136 137 Potassium 6.0 H 4.8 D 5.2 H Chloride 99 101 100 Carbon Dioxide 21.9 21.9 21.9 Anion Gap 14 13 15 BUN 75 H 61 H 71 H Creatinine 3.5 H 3.0 H D 3.2 H Estim Creat Clear Calc 20.5 L 23.9 L 22.4 L eGFR 14 L* 16 L 15 L BUN/Creatinine Ratio 21 H 20 22 H Glucose 87 89 100 Calculated Osmolality 291 288 294 Lactic Acid 4.2 H* Calcium 9.1 8.9 8.8 Corrected Calcium 9.8 9.7 9.6 Phosphorus 6.9 H 5.9 H 6.1 H Magnesium 3.1 H 2.9 H 2.9 H Total Bilirubin 1.7 H AST 113 H ALT 45 Alkaline Phosphatase 473 H Ammonia Troponin I 0.046 H* Total Protein 5.6 L Albumin 3.1 L D 3.0 L 3.0 L Globulin 2.6 Albumin/Globulin Ratio 1.2 TSH Free T4 1.13 Ur Collection Type Urine Color Urine Clarity Urine pH Ur Specific [place] Urine Protein Urine Glucose (UA) Urine Ketones Urine Blood Urine Nitrite Urine Bilirubin Urine Urobilinogen (Auto) Ur Leukocyte Esterase Urine RBC Urine WBC Ur Squamous Epith Cells Urine Bacteria Hyaline Casts Ur Culture Indicated? 03/02/25 03/02/25 03/02/25 04:53 06:30 08:43 WBC RBC Hgb Hct MCV MCH MCHC RDW Std Deviation Plt Count Neut % (Auto) Lymph % (Auto) [place] % (Auto) Eos % (Auto) Baso % (Auto) Neut # (Auto) Lymph # (Auto) [place] # (Auto) Eos # (Auto) Baso # (Auto) Immature Gran # (Auto) Absolute Nucleated RBC Immature Gran % Nucleated RBC % PT INR APTT Puncture Site Right Radial Left Radial ABG pH 7.44 D 7.48 H ABG pCO2 35 29 L ABG pO2 82 L 130 H D ABG HCO3 24 22 ABG O2 Saturation 97 100 H ABG Base Excess 0 -1 FiO2 6 5 Sodium Potassium Chloride Carbon Dioxide Anion Gap BUN Creatinine Estim Creat Clear Calc eGFR BUN/Creatinine Ratio Glucose Calculated Osmolality Lactic Acid Calcium Corrected Calcium Phosphorus Magnesium Total Bilirubin AST ALT Alkaline Phosphatase Ammonia 127 H* Troponin I Total Protein Albumin Globulin Albumin/Globulin Ratio TSH Free T4 Ur Collection Type Urine Color Urine Clarity Urine pH Ur Specific [place] Urine Protein Urine Glucose (UA) Urine Ketones Urine Blood Urine Nitrite Urine Bilirubin Urine Urobilinogen (Auto) Ur Leukocyte Esterase Urine RBC Urine WBC Ur Squamous Epith Cells Urine Bacteria Hyaline Casts Ur Culture Indicated? 03/02/25 03/02/25 03/02/25 08:45 08:45 09:16 WBC RBC Hgb Hct MCV MCH MCHC RDW Std Deviation Plt Count Neut % (Auto) Lymph % (Auto) [place] % (Auto) Eos % (Auto) Baso % (Auto) Neut # (Auto) Lymph # (Auto) [place] # (Auto) Eos # (Auto) Baso # (Auto) Immature Gran # (Auto) Absolute Nucleated RBC Immature Gran % Nucleated RBC % PT INR APTT Puncture Site ABG pH ABG pCO2 ABG pO2 ABG HCO3 ABG O2 Saturation ABG Base Excess FiO2 Sodium 136 Potassium 5.4 H Chloride 101 Carbon Dioxide 19.1 L Anion Gap 16 BUN 67 H Creatinine 3.4 H Estim Creat Clear Calc 21.8 L eGFR 14 L* BUN/Creatinine Ratio 20 Glucose 114 H Calculated Osmolality 292 Lactic Acid Cancelled 4.4 H* Calcium 9.1 Corrected Calcium 10.0 Phosphorus 6.3 H Magnesium 3.0 H Total Bilirubin AST ALT Alkaline Phosphatase Ammonia Troponin I 0.049 H* Cancelled Total Protein Albumin 2.9 L Globulin Albumin/Globulin Ratio TSH Free T4 Ur Collection Type Urine Color Urine Clarity Urine pH Ur Specific [place] Urine Protein Urine Glucose (UA) Urine Ketones Urine Blood Urine Nitrite Urine Bilirubin Urine Urobilinogen (Auto) Ur Leukocyte Esterase Urine RBC Urine WBC Ur Squamous Epith Cells Urine Bacteria Hyaline Casts Ur Culture Indicated? 03/02/25 03/02/25 03/02/25 12:15 14:13 16:12 WBC RBC Hgb Hct MCV MCH MCHC RDW Std Deviation Plt Count Neut % (Auto) Lymph % (Auto) [place] % (Auto) Eos % (Auto) Baso % (Auto) Neut # (Auto) Lymph # (Auto) [place] # (Auto) Eos # (Auto) Baso # (Auto) Immature Gran # (Auto) Absolute Nucleated RBC Immature Gran % Nucleated RBC % PT INR APTT Puncture Site ABG pH ABG pCO2 ABG pO2 ABG HCO3 ABG O2 Saturation ABG Base Excess FiO2 Sodium 139 142 Potassium 4.7 D 3.9 D Chloride 102 101 Carbon Dioxide 23.0 25.3 Anion Gap 14 16 BUN 65 H 47 H Creatinine 3.2 H 2.3 H D Estim Creat Clear Calc 23.2 L 31.7 L eGFR 15 L 23 L BUN/Creatinine Ratio 20 20 Glucose 108 H 117 H Calculated Osmolality 297 H 296 H Lactic Acid 3.6 H 3.3 H Calcium 8.7 9.1 Corrected Calcium 9.2 9.1 Phosphorus 5.8 H 4.2 Magnesium 2.9 H 2.7 H Total Bilirubin AST ALT Alkaline Phosphatase Ammonia Troponin I 0.048 H* Total Protein Albumin 3.4 D 4.0 D Globulin Albumin/Globulin Ratio TSH Free T4 Ur Collection Type Catheter Urine Color Yellow Urine Clarity Hazy Urine pH 5.0 Ur Specific [place] 1.029 Urine Protein 1+ A Urine Glucose (UA) Negative Urine Ketones Negative Urine Blood 2+ A Urine Nitrite Negative Urine Bilirubin Negative Urine Urobilinogen (Auto) 3.0 Ur Leukocyte Esterase Positive Urine RBC 20 H Urine WBC 39 H Ur Squamous Epith Cells 2 Urine Bacteria None Hyaline Casts < 1 Ur Culture Indicated? Yes ABG Interpretation ABG results: 03/01/25 03/01/25 03/02/25 09:05 16:01 04:53 ABG pH 7.37 7.33 L 7.44 D ABG pCO2 34 34 35 ABG pO2 99 99 82 L ABG HCO3 20 18 L 24 ABG O2 Saturation 99 H 98 97 ABG Base Excess -5 L -7 L 0 03/02/25 08:43 ABG pH 7.48 H ABG pCO2 29 L ABG pO2 130 H D ABG HCO3 22 ABG O2 Saturation 100 H ABG Base Excess -1 Quality Measures Quality Measures VTE prophylaxis Advance care planning discussed with:: patient Assessment & Plan Assessment Current Active Medications: Generic Name Dose Route Start Last Admin Trade Name Freq PRN Reason Stop Dose Admin Acetaminophen 650 mg 03/01/25 14:01 Acetaminophen 325 Mg Tablet NG 03/31/25 14:00 Q6H PRN Fever >100.4 or pain 1-3 Albuterol/Ipratropium 3 ml 03/01/25 15:00 03/02/25 14:17 Albuterol/Ipratropium (Duoneb) Rt Rosario 3 Ml Nebu INH 03/31/25 14:59 3 ml Q4HRRT RAMON Administration Artificial Tears 0 drop 03/02/25 08:48 03/02/25 09:49 Artificial Tears 225 Drop/15 Ml Btl BOTH EYES 04/01/25 08:47 2 drops PRN PRN Administration TO KEEP EYES MOIST Ciprofloxacin 0 drop 03/02/25 13:45 03/02/25 15:01 Ciprofloxacin Op Rosario 0.3% 5 Ml Btl BOTH EYES 03/06/25 13:44 1 drop Q6H RAMON Administration Heparin Sodium (Porcine) 5,000 unit 03/01/25 21:00 03/02/25 08:21 Heparin Sod Inj 5000 Unit/Ml Vial SC 03/15/25 20:59 5,000 unit Q12HR RAMON Administration Heparin Sodium (Porcine) 3,100 unit 03/01/25 18:45 03/02/25 16:36 Heparin Sod Inj 1000 Unit/Ml Vial 10 Ml INDWELLCAT 03/15/25 18:44 3,100 unit X1 PRN Administration DIALYSIS Albumin Human 25 gm in 100 mls @ 100 mls/hr 03/01/25 14:20 03/02/25 16:35 Albuminex 25% Ivpb IV Infused Q30MIN PRN Infusion DIALYSIS Norepinephrine/Dextrose 8 mg in 250 mls @ 11.737 mls/hr 03/01/25 18:25 03/02/25 15:45 Levophed In D5w 8mg/250ml IV 03/31/25 18:24 0.11 mcg/kg/min .[id number] PRN 25.821 mls/hr PER PROTOCOL Titration Protocol 0.05 MCG/KG/MIN Albumin Human 25 gm in 100 mls @ 100 mls/hr 03/02/25 11:00 03/02/25 17:11 Albuminex 25% Ivpb IV 03/04/25 10:59 Not Given Q6H RAMON Octreotide Acetate 1,000 mcg/ 102 mls @ 5.1 mls/hr 03/02/25 10:47 03/02/25 12:31 Sodium Chloride IV 03/07/25 10:47 50 mcg/hr .Q20H RAMON 5.1 mls/hr Protocol Administration 50 MCG/HR Piperacillin/Tazobactam/Dextrose 3.375 gm in 50 mls @ 12.5 mls/hr 03/02/25 22:00 Zosyn IV 03/09/25 21:59 Q8HR RAMON Protocol Lactulose 40 gm 03/02/25 16:00 Lactulose Syrup 20 Gm/30 Ml Udc NG 04/01/25 15:59 Q2HR RAMON Protocol Lidocaine 1 patch 03/02/25 11:57 Lidocaine 5% 1 Patch TOP 04/01/25 11:56 UD PRN localized pain Miconazole Nitrate 0 gm 03/02/25 12:00 03/02/25 13:29 Miconazole Nitrate Cr 2% 15 Gm Tube TOP 04/01/25 11:59 1 applicatio BID RAMON Administration Ondansetron HCl 4 mg 03/01/25 14:01 Ondansetron Inj 2 Mg/Ml Inj 2 Ml IVP 03/31/25 14:00 Q6H PRN NAUSEA OR VOMITING Protocol Pharmacy Consult 1 each 03/02/25 09:00 Vancomycin Pharmacy To Dose 1 Each Each IV 04/01/25 08:59 QDAY PRN PROTOCOL Rifaximin 550 mg 03/02/25 11:00 03/02/25 12:38 Rifaximin 550 Mg Tablet NG 03/09/25 10:59 550 mg BID RAMON Administration Sodium Chloride 3 ml 03/01/25 11:02 Sodium Chloride Rt Rosario 0.9% 3 Ml Nebu INH 03/31/25 11:01 PRN PRN SOLN Plan Assessment 70-year-old female with a history of chronic kidney disease (CKD), cirrhosis, hypothyroidism, recent giardia infection, and chronic back pain (oxy q4), was recently admitted with severe hyperkalemia (K 7.1), KADI, and generalized weakness, who is currently admitted in the ICU for shock and severe hyperkalemia that is improving. Neurology #Acute encephalopathy DDx: Hepatic encephalopathy, infectious, Metabolic, uremic Dx: Head CT, CMP, Blood cultures, B12, Syphilis Rx: See GI section, ID section and renal, NPO with NG RRX: If underlying problems aren't resolved Cardiology: #Shock DDx: Distributive versus Cardiogenic versus obstructive At this time, patient is not acutely decompensated liver failure which could be a component of the distributive shock, also patient could have infection and contribute to septic shock, unlikely obstructive there does not seem to be cardiac tamponade, or PE. Patient is not fluid responsive seen with NICOM and passive leg raise. preliminary echo results seeing that patient has been intact already with echocardiogram Dx: NICOM, physical exam, echocardiogram, blood cultures, chest x-ray Rx: IV antibiotics, see GI section for liver treatment RRX: If underlying liver disease or infection not treated appropriately #Left bundle branch block Stable #NSTEMI Type II, likely related to demand ischemia, resolved Pulmonary: Stable Gastrointestinal: #Acute decompensated liver failure, secondary to #Hx of MYERS, confirmed by biopsy #Hepatic encephalopathy DDx: Hepatorenal syndrome, cirrhosis, SBP Dx: CMP, abdominal exam, blood cultures, Ammonia Rx: Albumin 25 mg IV every 6 hours, octreotide drip, continue with Levophed, Lactulose 40 gm Q2H RRX: If hepatorenal syndrome worsens #Transaminitis, improving DDx: Shock liver, MYERS, alcohol use, medication induced Dx: CMP Rx: Treat underlying condition of decompensated liver failure, hepatorenal syndrome and infection, CMP RRX:if underlying condition does not improve #Hyperbilirubinemia As above, stable Nephrology: #Acute renal failure #Electrolyte disturbances DDx: ATN, prerenal, intrinsic, postrenal Could be related to infection, could be related to acute tubular necrosis Dx: CMP, urine sodium and creatinine, renal ultrasound, blood cultures Rx: CMP, IV antibiotics, hemodialysis with albumin and Levophed PRN RRX: If infection does not resolve or patient does not tolerate hemodialysis #Severe hyperkalemia, improving DDx: Renal failure Dx: CMP Rx: CMP, hemodialysis RRX: If renal failure does not improve or medicines that increase hyperkalemia are given #Respiratory Alkalosis secondary to tachypnea #Metabolic acidosis secondary to #Lactic Acidosis DDx: Related to pain, renal failure, infection related Dx: CMP, VBG Rx: Hemodialysis, pain control, RRX: If infection or renal failure is not treated Hematology: #Leukocytosis DDx: Infectious, stress related Dx: Blood cultures, CBC Rx: CBC, IV antibiotics, pain control RRX: An infection is not controlled #Coagulopathy DDx: Infectious, stress related Dx: Blood cultures, CBC, Coagulation panel Rx: CBC, IV antibiotics, pain control RRX: if infection is not tx Endocrine: #History of hypothyroidism #Subclinical hypothyroidism Stable Recheck within 4 to 6 weeks for thyroid studies as TSH was 7.87 (high), free T4 within normal limits Infectious Disease: #Sepsis DDx: Abdominal Infection, Skin infection, Urine Tachycardic, white count 21 Lactate Elevated SOFA: 8 points Dx: Blood cultures, MRSA nares, skin examination Rx: IV vancomycin and Zosyn RRX: If we need additional imaging or infection is not treated appropriately Skin: #R Groin Ulcer DDx: Bursted Abscess, Ulcer Unsure if patient has had procedure in area in past Dx: Skin examination, BC Rx: IV Abx, as above, Wound care BID RRX: If further imaging is warranted #ICU Health maintenance Mechanical ventilation: None Sedation: None Diet: N.p.o., has NG for medicines DVT prophylaxis: Heparin subq q12h GI prophylaxis: None Falcon: Yes Lines: Tri-Flow, PIV Antibiotics: IV Zosyn and vancomycin CODE STATUS: Full Patient seen and care discussed with my attending physician, Dr. Ramez Mejia, PGY-2 This document was transcribed using voice recognition technology. Minor inaccuracies may be present. Attending Provider Attestation/Addendum pt seen and examined , d/w resident team. In short this is a 70yo F admitted to the ICU for AMS and shock with hyperkalemia. She underwent HD with improvement in her K. She has a profound hepatic encephalopathy and is on lactulose q2hr with no BM. She is still very altered. She dropped her BP on HD and required vasopressor support however her hypotension persisted beyond the HD and she is still on levophed. ? decompensated cirrhosis for her distributive shock picture. cont to ween as able. fu on LA. on physical exam she is somnolent with shallow breathing, mild wheezing, distant heart sounds, abd s/nt/bs+ with edema of LE. case d/w ICU team labs , imaging, records reviewed ~39ccmin required for eval, exam, review, intervention, discussion and formulation of POC for this critically ill pt with shock on vasopressors.
[2025-03-02] MEDS: LACTULOSE SYRUP 20 GM/30 ML UDC 40 GM NG ×4 (17:17→23:39)
[2025-03-02 18:46] LABS: Creatinine,Random Urine 88 mg/dL (30-125); Sodium,Urine Random < 10.0 mMol/L (20.0-110.0)
[2025-03-02 19:33] LABS: Reflex Lactate? Y
[2025-03-02] MEDS: Norepinephrine/D5W 8mg/250ml 8 MG/250 ML BAG 11.737 MG IV (19:37)
[2025-03-02 21:35] LABS: Lactate (Lactic Acid) 4.8 mMol/L (0.4-2.0)
--- NOTE | 2025-03-02 21:57 | ESPR_ITS ---
RE: KOMAL GARCIA : 1955 DATE OF SERVICE: 03/02/2025 Briefly, she is a 70-year-old woman with past medical history significant for hypertension, fatty liver, hypothyroidism, obesity, and stage IV CKD with baseline serum creatinine around 1.2-2.8 mg/dL who presented to the hospital yesterday with altered level of consciousness. Patient was also found hypotensive, hyperkalemic with a BUN of 102 and a creatinine of 3.7. Patient was dialyzed emergently to address her hyperkalemia. Patient also was hypotensive and required vasopressor and admission to ICU. She was also found with an elevated level of ammonia at 178. Her lactic acid was also elevated at 7.9. She was started on IV vancomycin 2 grams x1 and Zosyn 3.375 grams IV q. 8. Patient is not intubated, but continues to be obtunded. Blood pressures are also on the lower side and currently on norepinephrine drip. Patient was also started on octreotide 50 mcg per hour. Patient is currently on dialysis. CURRENT MEDICATIONS: Miconazole cream b.i.d., Levophed drip, octreotide 50 mcg q. per hour, Zosyn 3.375 grams IV q. 8, Rifaximin 550 mg p.o. b.i.d. PHYSICAL EXAMINATION: General: She is not intubated, currently on dialysis, on vasopressor. Remains obtunded. Vital Signs: Blood pressure of 137/83. HEENT: Anicteric sclerae, cephalic. Neck: Supple. JVD. Chest and Lungs: Symmetric expansion, clear breath sounds. CARDIAC: Sounds without murmur. ABDOMEN: Soft, nontender. EXTREMITIES: No edema. LABORATORY DATA: Blood culture x1 positive for Staph aureus species. Hemoglobin 13.3, WBC 21,200, platelet count 150,000. Sodium 142, potassium 3.9, chloride 101, CO2 25.3, BUN 47, creatinine 2.3. Glucose 117. Ammonia level 127. Blood culture x1 is growing gram-positive cocci resembling Staph. WBC 21,200, hemoglobin 13.3. Platelet count 150,000. ASSESSMENT: 1. Oliguric acute kidney injury secondary to acute tubular necrosis following hemodynamic instability and hypoperfusion and hypotension, doubt hepatorenal syndrome. 2. History of stage IV chronic kidney disease. 3. Obtundation most likely secondary to uremic encephalopathy, hepatic encephalopathy, and drug induced secondary to amitriptyline and oxycodone and possibly secondary to sepsis as well. 4. Hyperkalemia now improved with dialysis. 5. Sepsis. 6. Obesity. 7. Lactic acidosis secondary to sepsis. PLAN: Given that vancomycin is nephrotoxic, may also use daptomycin at 4 mg/kg every 48 hours along with Zosyn 3.375 grams b.i.d. Patient will be continued on dialysis tomorrow. Continue supportive treatment. DT: 21:17:39 TT: 21:57:00 Ref: [id number] - TID: [id number] MTDD
[2025-03-02 22:02] LABS: Albumin, Serum 3.5 gm/dL (3.4-4.8); Anion Gap 16 (7-16); BUN/Creatinine Ratio 14 Ratio (12-20); Blood Urea Nitrogen 40 mg/dL (9-23); Calcium 8.8 mg/dL (8.3-10.6); Calcium (Corrected) 9.2 mg/dL (8.5-10.1); Carbon Dioxide 21.8 mMol/L (20.0-31.0); Chloride 102 mMol/L (98-107); Creatinine (Component) 2.9 mg/dL (0.6-1.3); Estimated Creatinine Clearance 25.2 mL/min (>60); Glucose 124 mg/dL (74-106); Magnesium 2.8 mg/dL (1.6-2.6); Osmolality,Calculated 290 (275-295); Phosphorous 5.7 mg/dL (2.4-5.1); Potassium 4.8 mMol/L (3.4-5.1); Sodium 140 mMol/L (136-145); eGFR 17 See Note
[2025-03-03] VITALS (90 sets, daily range): BP systolic 61–139; BP diastolic 46–86; PULSE 82–109; RESP 13–28; TEMP 35.9–36.3; O2SAT 94–100; BMI 47.9
[2025-03-03 00:31] LABS: Reflex Lactate? Y
[2025-03-03 01:17] LABS: Lactic Acid, 3 HR 4.8 mMol/L (0.4-2.0)
[2025-03-03 01:39] LABS: Albumin, Serum 3.4 gm/dL (3.4-4.8); Anion Gap 17 (7-16); BUN/Creatinine Ratio 16 Ratio (12-20); Blood Urea Nitrogen 51 mg/dL (9-23); Calcium 8.9 mg/dL (8.3-10.6); Calcium (Corrected) 9.4 mg/dL (8.5-10.1); Carbon Dioxide 20.7 mMol/L (20.0-31.0); Chloride 103 mMol/L (98-107); Creatinine (Component) 3.1 mg/dL (0.6-1.3); Estimated Creatinine Clearance 23.5 mL/min (>60); Glucose 118 mg/dL (74-106); Magnesium 3.0 mg/dL (1.6-2.6); Osmolality,Calculated 295 (275-295); Phosphorous 5.9 mg/dL (2.4-5.1); Potassium 5.1 mMol/L (3.4-5.1); Sodium 141 mMol/L (136-145); eGFR 16 See Note
[2025-03-03] MEDS: ALBUTEROL/IPRATROPIUM (Duoneb) RT SOL 3 ML NEBU INH ×5 (02:06→22:31)
[2025-03-03] MEDS: LACTULOSE SYRUP 20 GM/30 ML UDC 40 GM NG ×2 (02:07→08:37)
[2025-03-03] MEDS: ACETAMINOPHEN 325 MG TABLET 650 MG NG (02:07)
[2025-03-03] MEDS: CIPROFLOXACIN OP SOL 0.3% 5 ML BTL BOTH EYES ×4 (02:07→19:36)
[2025-03-03] MEDS: ALBUMIN HUMAN-KJDA 25% IVPB 25 GM/100 ML BTL IV ×4 (04:54→22:51)
[2025-03-03] MEDS: PIPER/TAZO 3.375 GM PREMIX 3.375 GM/50 ML BAG IV ×3 (05:01→21:00)
[2025-03-03 05:03] LABS: Base Excess 0 (-3-3); HCO3 25 mEq/L (20-26); Inspired Oxygen, FIO2 21 %; O2 Saturation 96 % (91-98); PCO2 40 mmHg (32.0-48.0); PO2 75 mmHg (83-108); pH, Arterial 7.40 (7.35-7.45)
[2025-03-03 05:07] LABS: Puncture Site Right Radial
[2025-03-03 05:08] LABS: Allen Test Performed/OK
[2025-03-03 07:48] LABS: Lactate (Lactic Acid) 4.0 mMol/L (0.4-2.0)
[2025-03-03 07:57] LABS: Basophils # (Auto) 0.0 Thou/mm3 (0.0-0.2); Basophils % (Auto) 0 % (0-2.5); Eosinophils # (Auto) 0.1 Thou/mm3 (0.0-0.5); Eosinophils % (Auto) 0 % (0-10); Hematocrit 35.3 % (36.0-46.0); Hemoglobin 11.1 g/dL (12.0-16.0); Immature Granulocytes Auto 0.09 Thou/mm3 (0.00-0.00); Lymphocytes # (Auto) 2.2 Thou/mm3 (1.0-4.8); Lymphocytes % (Auto) 13 % (10-50); Mean Corpuscular HGB Conc 31.4 g/dl (31.0-37.0); Mean Corpuscular Hemoglobin 30.6 pg (25.0-35.0); Mean Corpuscular Volume 97 fL (80-100); Monocytes # (Auto) 1.0 Thou/mm3 (0.0-0.8); Monocytes % (Auto) 6 % (0-12); Neutrophils # (Auto) 12.8 Thou/mm3 (1.8-7.7); Neutrophils % (Auto) 79 % (37-80); Nucleated Red Blood Cell # 0.00 Thou/mm3 (0.00-0.00); Nucleated Red Blood Cell % 0 /100 WBC (0); Platelet Count 84 Thou/mm3 (140-440); RDW Standard Deviation 60.7 fL (36.4-46.3); Red Blood Count 3.63 Miln/mm3 (4.00-5.20); White Blood Count 16.2 Thou/mm3 (3.6-11.0)
[2025-03-03] MEDS: OCTREOTIDE ACET INJ 1,000 MCG in SODIUM CHLORIDE 0.9% 100 ML 5.1 MCG IV (08:09)
[2025-03-03 08:10] LABS: Alanine Aminotransferase 41 U/L (10-49); Albumin, Serum 3.6 gm/dL (3.4-4.8); Albumin/Globulin Ratio 1.6 (1.2-2.2); Alkaline Phosphatase 376 U/L (46-116); Anion Gap 17 (7-16); Aspartate Amino Transferase 84 U/L (0-34); BUN/Creatinine Ratio 13 Ratio (12-20); Bilirubin,Total 1.7 mg/dL (0.3-1.2); Blood Urea Nitrogen 40 mg/dL (9-23); Calcium 8.9 mg/dL (8.3-10.6); Calcium (Corrected) 9.2 mg/dL (8.5-10.1); Carbon Dioxide 23.4 mMol/L (20.0-31.0); Chloride 104 mMol/L (98-107); Creatinine (Component) 3.2 mg/dL (0.6-1.3); Estimated Creatinine Clearance 22.6 mL/min (>60); Globulin 2.2 gm/dL (2.3-3.5); Glucose 124 mg/dL (74-106); Magnesium 2.9 mg/dL (1.6-2.6); Osmolality,Calculated 297 (275-295); Phosphorous 5.7 mg/dL (2.4-5.1); Potassium 4.2 mMol/L (3.4-5.1); Sodium 144 mMol/L (136-145); Total Protein 5.8 gm/dL (5.7-8.2); Vancomycin,Random 16.1 mcg/mL; eGFR 15 See Note
[2025-03-03 08:13] LABS: INR 2.0 (0.9-1.3); Partial Thromboplastin Time 39.0 Seconds (22.0-36.0); Prothrombin Time 20.5 Seconds (9.0-12.2)
[2025-03-03 08:27] LABS: Syphilis Nonreactive (Nonreactive)
[2025-03-03] MEDS: HEPARIN SOD INJ 5000 UNIT/ML VIAL SC ×2 (08:37→21:01)
[2025-03-03] MEDS: MICONAZOLE NITRATE CR 2% 15 GM TUBE TOP ×2 (08:38→21:00)
[2025-03-03 10:40] LABS: Reflex Lactate? Y
[2025-03-03] MEDS: VANCOMYCIN/WATER 1250 MG IVPB 250 ML 125 MG IV (11:08)
--- NOTE | 2025-03-03 11:12 | ESPR_ITS ---
<Statement entered by Dominick Mejia MD - 03/03/25 18:57> Assessment 70-year-old female with a history of chronic kidney disease (CKD), cirrhosis, hypothyroidism, recent giardia infection, and chronic back pain (oxy q4), was recently admitted with severe hyperkalemia (K 7.1), KADI, and generalized weakness, who is currently admitted in the ICU for shock and severe hyperkalemia that is improving. Pt continuing to have improved mentation, patient has had multiple bowel movements with lactulose, will scale back on lactulose dosing and frequency. Patient continues to have lactic acidosis, will give additional IV fluids for downtrending. Restarted patient on pain medicines including Percocet every 8 hours. Anticipate downgrade within next 24 hours. Neurology #Acute encephalopathy DDx: Hepatic encephalopathy, infectious, Metabolic, uremic Dx: Head CT, CMP, Blood cultures, B12, Syphilis Rx: See GI section, ID section and renal, NPO with NG RRX: If underlying problems aren't resolved Cardiology: #Shock DDx: Distributive versus Cardiogenic versus obstructive At this time, patient is not acutely decompensated liver failure which could be a component of the distributive shock, also patient could have infection and contribute to septic shock, unlikely obstructive there does not seem to be cardiac tamponade, or PE. Patient is not fluid responsive seen with NICOM and passive leg raise. preliminary echo results seeing that patient has been intact already with echocardiogram Dx: NICOM, physical exam, echocardiogram, blood cultures, chest x-ray Rx: IV antibiotics, see GI section for liver treatment RRX: If underlying liver disease or infection not treated appropriately #Left bundle branch block Stable #NSTEMI Type II, likely related to demand ischemia, resolved Pulmonary: Stable Gastrointestinal: #Acute decompensated liver failure, secondary to #Hx of MYERS, confirmed by biopsy #Hepatic encephalopathy DDx: Hepatorenal syndrome, cirrhosis, SBP Dx: CMP, abdominal exam, blood cultures, Ammonia Rx: Albumin 25 mg IV every 6 hours, octreotide drip, continue with Levophed, Lactulose 40 gm Q2H RRX: If hepatorenal syndrome worsens #Transaminitis, improving DDx: Shock liver, MYERS, alcohol use, medication induced Dx: CMP Rx: Treat underlying condition of decompensated liver failure, hepatorenal syndrome and infection, CMP RRX:if underlying condition does not improve #Hyperbilirubinemia As above, stable Nephrology: #Acute renal failure #Electrolyte disturbances DDx: ATN, prerenal, intrinsic, postrenal Could be related to infection, could be related to acute tubular necrosis Dx: CMP, urine sodium and creatinine, renal ultrasound, blood cultures Rx: CMP, IV antibiotics, hemodialysis with albumin and Levophed PRN RRX: If infection does not resolve or patient does not tolerate hemodialysis #Severe hyperkalemia, resolved #Respiratory Alkalosis secondary to tachypnea #Metabolic acidosis secondary to #Lactic Acidosis, worsening DDx: Related to pain, renal failure, infection related Dx: CMP, VBG Rx: Hemodialysis, pain control, additional 1.5 L IV LR RRX: If infection or renal failure is not treated Hematology: #Leukocytosis DDx: Infectious, stress related Dx: Blood cultures, CBC Rx: CBC, IV antibiotics, pain control RRX: An infection is not controlled #Coagulopathy DDx: Infectious, stress related Dx: Blood cultures, CBC, Coagulation panel Rx: CBC, IV antibiotics, pain control RRX: if infection is not tx Endocrine: #History of hypothyroidism #Subclinical hypothyroidism Stable Recheck within 4 to 6 weeks for thyroid studies as TSH was 7.87 (high), free T4 within normal limits Infectious Disease: #Sepsis #GPC Bacteremia, 1/2 bottles DDx: Abdominal Infection, Skin infection, Urine Tachycardic, white count 21 Lactate Elevated SOFA: 8 points Dx: Blood cultures, MRSA nares, skin examination. Repeating BC for evaluation of true bacteremia or contaminant Rx: IV vancomycin and Zosyn RRX: If we need additional imaging or infection is not treated appropriately Skin: #R Groin Ulcer DDx: Bursted Abscess, Ulcer Unsure if patient has had procedure in area in past Dx: Skin examination, BC Rx: IV Abx, as above, Wound care BID RRX: If further imaging is warranted #MSK #Chronic Back pain Resumed home Percocet. #ICU Health maintenance Mechanical ventilation: None Sedation: None Diet: N.p.o., has NG for medicines DVT prophylaxis: Heparin subq q12h GI prophylaxis: None Falcon: Yes Lines: Tri-Flow, PIV Antibiotics: IV Zosyn and vancomycin CODE STATUS: Full Patient seen and care discussed with my attending physician, Dr. Ramez Mejia, PGY-2 This document was transcribed using voice recognition technology. Minor inaccuracies may be present. Documentation for date of: 03/03/25 Subjective Subjective Interval history: Pt examined at bedside today. Pt's GCS appears to be 13, however, eyes do remain closed and withdraws from pain, but can follow commands. Her sodium is 141 today, potassium 3.4, phosphorus 1.4, white count 9.7, hemoglobin 12.9, creatinine 0.7, she was found to have gram-positive cocci 1 out of 2 bottles, could be contaminant, however will repeat blood cultures. pH on ABG was 7.52 pCO2 of 30, likely indicating acute respiratory acidosis that is not appropriately compensated. Patient will need MRI due to concern for infection or embolic CVA. Pt's blood sugar continues to drop, however, will adjust Degludec to 18 units and continue with SSI as pt's gap as closed and DKA resolved. She will will be downgraded to telemetry later today. No longer on pressors as of last night. Exam Vital Signs Temp Pulse Resp BP Pulse Ox O2 Del Method O2 Flow Rate 96.9 F 103 H 21 H 138/80 H 99 Nasal Cannula 2 03/03/25 08:00 03/03/25 10:10 03/03/25 10:10 03/03/25 09:01 03/03/25 10:10 03/03/25 04:01 03/03/25 10:10 Narrative Exam General: AAOx3, eyes are open, morbidly obese,in distress, open mouth HEENT: Dry mucous membranes, appears to have bacterial conjunctivitis with redness surrounding conjunctiva bilaterally, left pupil fixed and does not react to accommodation Cardiovascular: S1, S2, radial pulses +2 bilat, RRR Pulmonary: Difficulty appreciated breath sounds GI: Abdomen distended, bowel sounds present Extremities: Anasarca, dorsalis pedis pulses +2 bilaterally Neuro: AAOx3 Skin: Right inguinal fold shows draining ulcer that does not appear to be infected at this time, however it appears to be about 2 cm deep, multiple areas of purpura throughout body Psych: Unable to cooperate Objective Labs 03/03/25 07:29 03/03/25 07:29 Labs: Laboratory Results - last 24 hr 03/02/25 03/02/25 03/02/25 12:15 14:13 16:12 WBC RBC Hgb Hct MCV MCH MCHC RDW Std Deviation Plt Count Neut % (Auto) Lymph % (Auto) [place] % (Auto) Eos % (Auto) Baso % (Auto) Neut # (Auto) Lymph # (Auto) [place] # (Auto) Eos # (Auto) Baso # (Auto) Immature Gran # (Auto) Absolute Nucleated RBC Immature Gran % Nucleated RBC % PT INR APTT Puncture Site ABG pH ABG pCO2 ABG pO2 ABG HCO3 ABG O2 Saturation ABG Base Excess FiO2 Sodium 139 142 Potassium 4.7 D 3.9 D Chloride 102 101 Carbon Dioxide 23.0 25.3 Anion Gap 14 16 BUN 65 H 47 H Creatinine 3.2 H 2.3 H D Estim Creat Clear Calc 23.2 L 31.7 L eGFR 15 L 23 L BUN/Creatinine Ratio 20 20 Glucose 108 H 117 H Calculated Osmolality 297 H 296 H Lactic Acid 3.6 H 3.3 H Calcium 8.7 9.1 Corrected Calcium 9.2 9.1 Phosphorus 5.8 H 4.2 Magnesium 2.9 H 2.7 H Total Bilirubin AST ALT Alkaline Phosphatase Troponin I 0.048 H* Total Protein Albumin 3.4 D 4.0 D Globulin Albumin/Globulin Ratio Ur Collection Type Catheter Urine Color Yellow Urine Clarity Hazy Urine pH 5.0 Ur Specific [place] 1.029 Urine Protein 1+ A Urine Glucose (UA) Negative Urine Ketones Negative Urine Blood 2+ A Urine Nitrite Negative Urine Bilirubin Negative Urine Urobilinogen (Auto) 3.0 Ur Leukocyte Esterase Positive Urine RBC 20 H Urine WBC 39 H Ur Squamous Epith Cells 2 Urine Bacteria None Hyaline Casts < 1 Ur Culture Indicated? Yes Ur Random Creatinine Ur Random Sodium Random Vancomycin Syphilis Serology 03/02/25 03/02/25 03/03/25 18:00 21:26 01:00 WBC RBC Hgb Hct MCV MCH MCHC RDW Std Deviation Plt Count Neut % (Auto) Lymph % (Auto) [place] % (Auto) Eos % (Auto) Baso % (Auto) Neut # (Auto) Lymph # (Auto) [place] # (Auto) Eos # (Auto) Baso # (Auto) Immature Gran # (Auto) Absolute Nucleated RBC Immature Gran % Nucleated RBC % PT INR APTT Puncture Site ABG pH ABG pCO2 ABG pO2 ABG HCO3 ABG O2 Saturation ABG Base Excess FiO2 Sodium 140 141 Potassium 4.8 D 5.1 Chloride 102 103 Carbon Dioxide 21.8 20.7 Anion Gap 16 17 H BUN 40 H 51 H Creatinine 2.9 H D 3.1 H Estim Creat Clear Calc 25.2 L 23.5 L eGFR 17 L 16 L BUN/Creatinine Ratio 14 16 Glucose 124 H 118 H Calculated Osmolality 290 295 Lactic Acid 4.8 H* 4.8 H* Calcium 8.8 8.9 Corrected Calcium 9.2 9.4 Phosphorus 5.7 H 5.9 H Magnesium 2.8 H 3.0 H Total Bilirubin AST ALT Alkaline Phosphatase Troponin I Total Protein Albumin 3.5 D 3.4 Globulin Albumin/Globulin Ratio Ur Collection Type Urine Color Urine Clarity Urine pH Ur Specific [place] Urine Protein Urine Glucose (UA) Urine Ketones Urine Blood Urine Nitrite Urine Bilirubin Urine Urobilinogen (Auto) Ur Leukocyte Esterase Urine RBC Urine WBC Ur Squamous Epith Cells Urine Bacteria Hyaline Casts Ur Culture Indicated? Ur Random Creatinine 88 Ur Random Sodium < 10.0 L Random Vancomycin Syphilis Serology 03/03/25 03/03/25 04:28 07:29 WBC 16.2 H D RBC 3.63 L Hgb 11.1 L D Hct 35.3 L MCV 97 MCH 30.6 MCHC 31.4 RDW Std Deviation 60.7 H Plt Count 84 L D Neut % (Auto) 79 Lymph % (Auto) 13 [place] % (Auto) 6 Eos % (Auto) 0 Baso % (Auto) 0 Neut # (Auto) 12.8 H Lymph # (Auto) 2.2 [place] # (Auto) 1.0 H Eos # (Auto) 0.1 Baso # (Auto) 0.0 Immature Gran # (Auto) 0.09 H Absolute Nucleated RBC 0.00 Immature Gran % 1 H Nucleated RBC % 0 PT 20.5 H D INR 2.0 H APTT 39.0 H Puncture Site Right Radial ABG pH 7.40 ABG pCO2 40 D ABG pO2 75 L D ABG HCO3 25 ABG O2 Saturation 96 ABG Base Excess 0 FiO2 21 Sodium 144 Potassium 4.2 D Chloride 104 Carbon Dioxide 23.4 Anion Gap 17 H BUN 40 H Creatinine 3.2 H Estim Creat Clear Calc 22.6 L eGFR 15 L BUN/Creatinine Ratio 13 Glucose 124 H Calculated Osmolality 297 H Lactic Acid 4.0 H Calcium 8.9 Corrected Calcium 9.2 Phosphorus 5.7 H Magnesium 2.9 H Total Bilirubin 1.7 H AST 84 H ALT 41 Alkaline Phosphatase 376 H D Troponin I Total Protein 5.8 Albumin 3.6 Globulin 2.2 L Albumin/Globulin Ratio 1.6 Ur Collection Type Urine Color Urine Clarity Urine pH Ur Specific [place] Urine Protein Urine Glucose (UA) Urine Ketones Urine Blood Urine Nitrite Urine Bilirubin Urine Urobilinogen (Auto) Ur Leukocyte Esterase Urine RBC Urine WBC Ur Squamous Epith Cells Urine Bacteria Hyaline Casts Ur Culture Indicated? Ur Random Creatinine Ur Random Sodium Random Vancomycin 16.1 Syphilis Serology Nonreactive ABG Interpretation ABG results: 03/01/25 03/01/25 03/02/25 09:05 16:01 04:53 ABG pH 7.37 7.33 L 7.44 D ABG pCO2 34 34 35 ABG pO2 99 99 82 L ABG HCO3 20 18 L 24 ABG O2 Saturation 99 H 98 97 ABG Base Excess -5 L -7 L 0 03/02/25 03/03/25 08:43 04:28 ABG pH 7.48 H 7.40 ABG pCO2 29 L 40 D ABG pO2 130 H D 75 L D ABG HCO3 22 25 ABG O2 Saturation 100 H 96 ABG Base Excess -1 0 Quality Measures Quality Measures VTE prophylaxis Advance care planning discussed with:: patient Assessment & Plan Assessment Current Active Medications: Generic Name Dose Route Start Last Admin Trade Name Freq PRN Reason Stop Dose Admin Acetaminophen 650 mg 03/01/25 14:01 03/03/25 02:07 Acetaminophen 325 Mg Tablet NG 03/31/25 14:00 650 mg Q6H PRN Administration Fever >100.4 or pain 1-3 Albuterol/Ipratropium 3 ml 03/01/25 15:00 03/03/25 10:08 Albuterol/Ipratropium (Duoneb) Rt Rosario 3 Ml Nebu INH 03/31/25 14:59 3 ml Q4HRRT RAMON Administration Artificial Tears 0 drop 03/02/25 08:48 03/02/25 09:49 Artificial Tears 225 Drop/15 Ml Btl BOTH EYES 04/01/25 08:47 2 drops PRN PRN Administration TO KEEP EYES MOIST Ciprofloxacin 0 drop 03/02/25 13:45 03/03/25 08:36 Ciprofloxacin Op Rosario 0.3% 5 Ml Btl BOTH EYES 03/06/25 13:44 2 drop Q6H RAMON Administration Heparin Sodium (Porcine) 5,000 unit 03/01/25 21:00 03/03/25 08:37 Heparin Sod Inj 5000 Unit/Ml Vial SC 03/15/25 20:59 5,000 unit Q12HR RAMON Administration Heparin Sodium (Porcine) 3,100 unit 03/01/25 18:45 03/02/25 16:36 Heparin Sod Inj 1000 Unit/Ml Vial 10 Ml INDWELLCAT 03/15/25 18:44 3,100 unit X1 PRN Administration DIALYSIS Albumin Human 25 gm in 100 mls @ 100 mls/hr 03/01/25 14:20 03/02/25 16:35 Albuminex 25% Ivpb IV Infused Q30MIN PRN Infusion DIALYSIS Norepinephrine/Dextrose 8 mg in 250 mls @ 11.737 mls/hr 03/01/25 18:25 03/02/25 21:15 Levophed In D5w 8mg/250ml IV 03/31/25 18:24 0 mcg/kg/min .[id number] PRN 0 mls/hr PER PROTOCOL Titration Protocol 0.05 MCG/KG/MIN Albumin Human 25 gm in 100 mls @ 100 mls/hr 03/02/25 11:00 03/03/25 04:54 Albuminex 25% Ivpb IV 03/04/25 10:59 100 mls/hr Q6H RAMON Administration Octreotide Acetate 1,000 mcg/ 102 mls @ 5.1 mls/hr 03/02/25 10:47 03/03/25 08:09 Sodium Chloride IV 03/07/25 10:47 50 mcg/hr .Q20H RAMON 5.1 mls/hr Protocol Administration 50 MCG/HR Piperacillin/Tazobactam/Dextrose 3.375 gm in 50 mls @ 12.5 mls/hr 03/02/25 22:00 03/03/25 05:01 Zosyn IV 03/09/25 21:59 12.5 mls/hr Q8HR RAMON Administration Protocol Vancomycin HCl 250 mls @ 125 mls/hr 03/03/25 10:00 03/03/25 11:08 Vancomycin/Water 1250 Mg Ivpb IV 03/10/25 09:59 125 mls/hr Q36H RAMON Administration Protocol Lactulose 40 gm 03/03/25 14:00 Lactulose Syrup 20 Gm/30 Ml Udc PO 04/02/25 13:59 TID RAMON Protocol Lidocaine 1 patch 03/02/25 11:57 Lidocaine 5% 1 Patch TOP 04/01/25 11:56 UD PRN localized pain Miconazole Nitrate 0 gm 03/02/25 12:00 03/03/25 08:38 Miconazole Nitrate Cr 2% 15 Gm Tube TOP 04/01/25 11:59 1 applicatio BID RAMON Administration Ondansetron HCl 4 mg 03/01/25 14:01 Ondansetron Inj 2 Mg/Ml Inj 2 Ml IVP 03/31/25 14:00 Q6H PRN NAUSEA OR VOMITING Protocol Oxycodone/Acetaminophen 1 tab 03/03/25 09:28 03/03/25 09:49 Oxycodone/Apap 5/325 Tablet PO 03/08/25 09:27 1 tab Q8H PRN Administration pain 8-10 or breakthrough pain Pharmacy Consult 1 each 03/02/25 09:00 Vancomycin Pharmacy To Dose 1 Each Each IV 04/01/25 08:59 QDAY PRN PROTOCOL Rifaximin 550 mg 03/02/25 11:00 03/03/25 08:38 Rifaximin 550 Mg Tablet NG 03/09/25 10:59 550 mg BID RAMON Administration Sodium Chloride 3 ml 03/01/25 11:02 Sodium Chloride Rt Rosario 0.9% 3 Ml Nebu INH 03/31/25 11:01 PRN PRN SOLN Plan Assessment 70-year-old female with a history of chronic kidney disease (CKD), cirrhosis, hypothyroidism, recent giardia infection, and chronic back pain (oxy q4), was recently admitted with severe hyperkalemia (K 7.1), KADI, and generalized weakness, who is currently admitted in the ICU for shock and severe hyperkalemia that is improving. Neurology #Acute encephalopathy DDx: Hepatic encephalopathy, infectious, Metabolic, uremic Dx: Head CT, CMP, Blood cultures, B12, Syphilis Rx: See GI section, ID section and renal, NPO with NG RRX: If underlying problems aren't resolved Cardiology: #Shock DDx: Distributive versus Cardiogenic versus obstructive At this time, patient is not acutely decompensated liver failure which could be a component of the distributive shock, also patient could have infection and contribute to septic shock, unlikely obstructive there does not seem to be cardiac tamponade, or PE. Patient is not fluid responsive seen with NICOM and passive leg raise. preliminary echo results seeing that patient has been intact already with echocardiogram Dx: NICOM, physical exam, echocardiogram, blood cultures, chest x-ray Rx: IV antibiotics, see GI section for liver treatment RRX: If underlying liver disease or infection not treated appropriately #Left bundle branch block Stable #NSTEMI Type II, likely related to demand ischemia, resolved Pulmonary: Stable Gastrointestinal: #Acute decompensated liver failure, secondary to #Hx of MYERS, confirmed by biopsy #Hepatic encephalopathy DDx: Hepatorenal syndrome, cirrhosis, SBP Dx: CMP, abdominal exam, blood cultures, Ammonia Rx: Albumin 25 mg IV every 6 hours, octreotide drip, stopped Levophed (03/03), Lactulose 40 gm Q6H (on rectal tube) RRX: If hepatorenal syndrome worsens #Transaminitis, improving DDx: Shock liver, MYERS, alcohol use, medication induced Dx: CMP Rx: Treat underlying condition of decompensated liver failure, hepatorenal syndrome and infection, CMP RRX:if underlying condition does not improve #Hyperbilirubinemia As above, stable Nephrology: #Acute renal failure #Electrolyte disturbances DDx: ATN, prerenal, intrinsic, postrenal Could be related to infection, could be related to acute tubular necrosis Dx: CMP, urine sodium and creatinine, renal ultrasound, blood cultures Rx: CMP, IV antibiotics, hemodialysis with albumin and Levophed PRN RRX: If infection does not resolve or patient does not tolerate hemodialysis #Severe hyperkalemia, improving DDx: Renal failure Dx: CMP Rx: CMP, hemodialysis RRX: If renal failure does not improve or medicines that increase hyperkalemia are given #Respiratory Alkalosis secondary to tachypnea #Metabolic acidosis secondary to #Lactic Acidosis DDx: Related to pain, renal failure, infection related Dx: CMP, VBG Rx: Hemodialysis, pain control, RRX: If infection or renal failure is not treated Hematology: #Leukocytosis - improving DDx: Infectious, stress related Dx: Blood cultures, CBC Rx: CBC, IV antibiotics, pain control RRX: An infection is not controlled #Coagulopathy DDx: Infectious, stress related Dx: Blood cultures, CBC, Coagulation panel Rx: CBC, IV antibiotics, pain control RRX: if infection is not tx Endocrine: #History of hypothyroidism #Subclinical hypothyroidism Stable Recheck within 4 to 6 weeks for thyroid studies as TSH was 7.87 (high), free T4 within normal limits Infectious Disease: #Sepsis DDx: Abdominal Infection, Skin infection, Urine Tachycardic, white count 21 Lactate Elevated SOFA: 8 points Dx: Blood cultures, MRSA nares, skin examination Rx: IV vancomycin and Zosyn RRX: If we need additional imaging or infection is not treated appropriately Skin: #R Groin Ulcer DDx: Bursted Abscess, Ulcer Unsure if patient has had procedure in area in past Dx: Skin examination, BC Rx: IV Abx, as above, Wound care BID RRX: If further imaging is warranted #ICU Health maintenance Mechanical ventilation: None Sedation: None Diet: N.p.o., has NG for medicines DVT prophylaxis: Heparin subq q12h GI prophylaxis: None [place]: Yes Lines: Tri-Flow, PIV Antibiotics: IV Zosyn and vancomycin CODE STATUS: Full Patient seen and care discussed with my attending physician, Dr. Myrick and supervising resident Dr. Dominick Mejia Note written by Andrey Bhatt PGY-1 This document was transcribed using voice recognition technology. Minor inaccuracies may be present. Attending Provider Attestation/Addendum pt seen and examined , d/w resident team. In short this is a 70yo F admitted to the ICU for AMS and shock with hyperkalemia. She underwent HD with improvement in her K. She has a profound hepatic encephalopathy and is on lactulose q2hr with no BM. She is still very altered. She dropped her BP on HD and required vasopressor support however her hypotension persisted beyond the HD and she is still on levophed. ? decompensated cirrhosis for her distributive shock picture. cont to ween as able. fu on LA. on physical exam she is somnolent with shallow breathing, mild wheezing, distant heart sounds, abd s/nt/bs+ with edema of LE. case d/w ICU team labs , imaging, records reviewed ~39ccmin required for eval, exam, review, intervention, discussion and formulation of POC for this critically ill pt with shock on vasopressors.
[2025-03-03 11:21] LABS: Lactate (Lactic Acid) 4.3 mMol/L (0.4-2.0)
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
--- NOTE | 2025-03-03 12:14 | PC.SS ---
BRIQUETTE OPERATOR attempted phone contact with patient's spouse, Dick Poe ; to conduct initial assessment. No response. BRIQUETTE OPERATOR left message requesting return call.
[2025-03-03 12:17] LABS: Lactic Acid, 3 HR 4.3 mMol/L (0.4-2.0)
--- NOTE | 2025-03-03 12:27 | PC.SS ---
BLOCK BREAKER conducted bedside contact with the patient conduct initial assessment and to discuss discharge planning.? At bedside with patient was sister, Dolly Landin .? Information obtained from patient?s sister and chart review.? Patient is a resident of [facility].? Patient utilizes a walker to assist with ambulation.? Patient does not require the use of oxygen.? Patient requires assistance with the completion of ADL?s.? Patient?s surrogate medical decision maker is spouse, Dick Poe .? Patient?s PCP is Tona Metz. ?Discharge plan is for the patient to return to [facility].? No discharge needs identified by the patient?s sister.? No further intervention required at this time, social media marketing specialist will be available to address any further concerns.? Next of Kin: Dick Poe D/C Plan: SNF
[2025-03-03] MEDS: RINGERS LACTATED 1000 ML 1,000 ML 999 ML IV (12:33)
[2025-03-03] MEDS: RINGERS LACTATED 500 ML 500 ML 999 ML IV (13:27)
[2025-03-03 14:13] LABS: Reflex Lactate? Y
[2025-03-03 14:56] LABS: Cocci Serology, IgM Negative (Negative)
[2025-03-03 15:24] LABS: Lactic Acid, 3 HR 2.7 mMol/L (0.4-2.0)
[2025-03-03] MEDS: GABAPENTIN 100 MG CAPSULE 200 MG NG ×2 (16:07→21:00)
[2025-03-03 17:19] LABS: Lactate (Lactic Acid) 2.6 mMol/L (0.4-2.0)
[2025-03-03] MEDS: HEPARIN SOD INJ 1000 UNIT/ML VIAL 10 ML 3100 UNIT INDWELLCAT (17:26)
[2025-03-03] MEDS: LIDOCAINE 5% 1 PATCH TOP (19:25)
[2025-03-03] MEDS: Norepinephrine/D5W 8mg/250ml 8 MG/250 ML BAG 11.737 MG IV (20:13)
[2025-03-03 20:17] LABS: Reflex Lactate? Y
[2025-03-03] MEDS: LACTULOSE SYRUP 20 GM/30 ML UDC 40 GM PO (21:00)
[2025-03-03 21:37] LABS: Lactic Acid, 3 HR 3.0 mMol/L (0.4-2.0)
[2025-03-04] VITALS (117 sets, daily range): BP systolic 70–130; BP diastolic 49–86; PULSE 81–105; RESP 12–24; TEMP 36.1–36.7; O2SAT 93–98; BMI 48.5
[2025-03-04] MEDS: ALBUTEROL/IPRATROPIUM (Duoneb) RT SOL 3 ML NEBU INH (02:03)
[2025-03-04] MEDS: OCTREOTIDE ACET INJ 1,000 MCG in SODIUM CHLORIDE 0.9% 100 ML 5.1 MCG IV (02:05)
[2025-03-04] MEDS: CIPROFLOXACIN OP SOL 0.3% 5 ML BTL BOTH EYES ×2 (02:06→07:30)
[2025-03-04] MEDS: ALBUMIN HUMAN-KJDA 25% IVPB 25 GM/100 ML BTL IV ×2 (04:27→14:38)
[2025-03-04 05:06] LABS: Basophils # (Auto) 0.0 Thou/mm3 (0.0-0.2); Basophils % (Auto) 0 % (0-2.5); Eosinophils # (Auto) 0.2 Thou/mm3 (0.0-0.5); Eosinophils % (Auto) 1 % (0-10); Hematocrit 33.7 % (36.0-46.0); Hemoglobin 10.9 g/dL (12.0-16.0); Immature Granulocytes Auto 0.14 Thou/mm3 (0.00-0.00); Lymphocytes # (Auto) 2.6 Thou/mm3 (1.0-4.8); Lymphocytes % (Auto) 16 % (10-50); Mean Corpuscular HGB Conc 32.3 g/dl (31.0-37.0); Mean Corpuscular Hemoglobin 31.5 pg (25.0-35.0); Mean Corpuscular Volume 97 fL (80-100); Monocytes # (Auto) 1.0 Thou/mm3 (0.0-0.8); Monocytes % (Auto) 6 % (0-12); Neutrophils # (Auto) 12.6 Thou/mm3 (1.8-7.7); Neutrophils % (Auto) 76 % (37-80); Nucleated Red Blood Cell # 0.02 Thou/mm3 (0.00-0.00); Nucleated Red Blood Cell % 0 /100 WBC (0); Platelet Count 84 Thou/mm3 (140-440); RDW Standard Deviation 61.9 fL (36.4-46.3); Red Blood Count 3.46 Miln/mm3 (4.00-5.20); White Blood Count 16.5 Thou/mm3 (3.6-11.0)
[2025-03-04 05:07] LABS: Lactate (Lactic Acid) 2.9 mMol/L (0.4-2.0)
[2025-03-04 05:20] LABS: Base Excess 2 (-3-3); HCO3 27 mEq/L (20-26); Inspired Oxygen, FIO2 21 %; O2 Saturation 90 % (91-98); PCO2 42 mmHg (32.0-48.0); pH, Arterial 7.42 (7.35-7.45)
[2025-03-04 05:22] LABS: Allen Test Performed/OK; Puncture Site Right Radial
[2025-03-04 05:23] LABS: PO2 54 mmHg (83-108)
[2025-03-04] MEDS: GABAPENTIN 100 MG CAPSULE 200 MG NG ×3 (05:30→21:26)
[2025-03-04] MEDS: PIPER/TAZO 3.375 GM PREMIX 3.375 GM/50 ML BAG IV (05:35)
[2025-03-04 05:36] LABS: Alanine Aminotransferase 39 U/L (10-49); Albumin, Serum 3.6 gm/dL (3.4-4.8); Albumin/Globulin Ratio 1.7 (1.2-2.2); Anion Gap 16 (7-16); Aspartate Amino Transferase 77 U/L (0-34); BUN/Creatinine Ratio 14 Ratio (12-20); Bilirubin,Total 1.9 mg/dL (0.3-1.2); Blood Urea Nitrogen 39 mg/dL (9-23); Calcium 8.7 mg/dL (8.3-10.6); Calcium (Corrected) 9.0 mg/dL (8.5-10.1); Carbon Dioxide 26.1 mMol/L (20.0-31.0); Chloride 103 mMol/L (98-107); Creatinine (Component) 2.8 mg/dL (0.6-1.3); Estimated Creatinine Clearance 25.8 mL/min (>60); Globulin 2.1 gm/dL (2.3-3.5); Glucose 92 mg/dL (74-106); Magnesium 2.5 mg/dL (1.6-2.6); Osmolality,Calculated 298 (275-295); Phosphorous 4.5 mg/dL (2.4-5.1); Potassium 3.8 mMol/L (3.4-5.1); Sodium 145 mMol/L (136-145); Total Protein 5.7 gm/dL (5.7-8.2); eGFR 18 See Note
[2025-03-04 05:41] LABS: Alkaline Phosphatase 309 U/L (46-116)
[2025-03-04] MEDS: LACTULOSE SYRUP 20 GM/30 ML UDC 40 GM PO ×3 (05:45→21:26)
[2025-03-04 07:56] LABS: Reflex Lactate? Y
[2025-03-04] MEDS: MICONAZOLE NITRATE CR 2% 15 GM TUBE TOP ×2 (08:38→20:20)
[2025-03-04] MEDS: HEPARIN SOD INJ 5000 UNIT/ML VIAL SC ×2 (08:39→20:21)
[2025-03-04 08:41] LABS: INR 2.4 (0.9-1.3); Partial Thromboplastin Time 43.5 Seconds (22.0-36.0); Prothrombin Time 23.7 Seconds (9.0-12.2)
[2025-03-04 10:00] LABS: Lactic Acid, 3 HR 2.8 mMol/L (0.4-2.0)
--- NOTE | 2025-03-04 10:39 | ESPR_ITS ---
Documentation for date of: 03/04/25 Subjective Subjective Interval history: 70-year-old female with a history of chronic kidney disease (CKD), cirrhosis, hypothyroidism, recent giardia infection, and chronic back pain (oxy q4), was recently admitted with severe hyperkalemia (K 7.1), KADI, and generalized weakness, who presented today from [facility] due to encephalopathy. ED Course Summary Vitals: BP 87/60 HR 82 RR 19 T 97.6F O2 sat 93% 2L NC Labs: WBC 18.9 PT 16.1 INR 1.6 APTT 34.5, Na 130 K 7.7 HCO3 19 BUN 102 Cr 3.7 Ca 8.2 Mg 3.2 T Bili 1.6 AST 124 ALT 47 ALP 483 Ammonia 178 Procal 4.5 TSH 8.58 UA Leukocyte esterase + WBC 157 Sq Epithelial cells 15 bacteria +3 ABG pH 7.37 pCO2 34 pO2 99 HCO3 20 O2 sat 98% EKG new LBBB HR 88 QRSd [address] negative for acute hemorrhage, mass effect or midline shift Head/Neck CTA Parenchymal disease in RUL, no significant arterial stenoses, no cerebral large vessel arterial occlusions or thrombus Treatment: LR 1.7 L, sodium bicarbonate 50meq, insuling regular 10, calcium chloride 10ml, Dextrose 50 ml, albuterol 10mg, dextrose 50ml, Calcium chloride 10ml, sodium bicarbonate 50ml, sodium polystyrene sulfonate 15g, LR 1 L, zosyn 4.5 g, CaCl 10ml, lactulose 10g, sodium bicarbonate 50 meq, dextrose 50ml, insulin regular 6 units, sodium polystyrene sulfonate 15g Consults and why: tele neuro for c/f stroke, emergency response technician Dr. Mccauley for HDS Patient is known to the interviewer who admitted her in January with a very similar presentation, however this time her mentation is much worse. AOx0 GCS 11 (E 4 S 3 M 4). Her was at bedside to assist with interview but he had little to no information. Most of history was gathered per chart review. From what can be gathered, she was returning to her normal baseline at the facility, however, the day prior she felt nauseas and she stopped eating and drinking yesterday. She was found to be repeating herself and yelling at the facility. Patient in the same state currently, with her eyes wide open, non blinking, and repeatedly yelling or repeating the questions asked to her. At times she seems to acknowledge her , however she does not respond to commands. 03/02/2025 Patient examined at bedside today. Patient had dialysis last night, was found to have GPC 1 out of 2 bottles and was started on vancomycin and ceftriaxone, kidney function has improved. Patient had 2 bowel movements overnight as well. Patient's morning labs showed creatinine of 3.2, BUN of 71, potassium 52, white count 21, urine output 525 cc T. bili 1.7, phosphorus 6.1, magnesium 2.9, AST 113, ALT 45. Patient remains to be more altered than yesterday. Family present at bedside, says that she has never seen the patient like this and has been feeling very 6 for the past couple months after she had infected with Giardia a couple months ago, however she is unsure if she has got treatment for it. 03/03/2025 Pt examined at bedside today. Pt's GCS appears to be 13, however, eyes do remain closed and withdraws from pain, but can follow commands. Her sodium is 141 today, potassium 3.4, phosphorus 1.4, white count 9.7, hemoglobin 12.9, creatinine 0.7, she was found to have gram-positive cocci 1 out of 2 bottles, could be contaminant, however will repeat blood cultures. pH on ABG was 7.52 pCO2 of 30, likely indicating acute respiratory acidosis that is not appropriately compensated. Patient will need MRI due to concern for infection or embolic CVA. Pt's blood sugar continues to drop, however, will adjust Degludec to 18 units and continue with SSI as pt's gap as closed and DKA resolved. She will will be downgraded to telemetry later today. No longer on pressors as of last night. 03/04/2025 Patient examined bedside today she is AO x 3 GCS 15 she was started on low-dose levo 0.6 last night and breathing treatment. Overnight she had good stool output and 1500 mL per the rectal tube and 120 mL of urine output today during dialysis she started on 0.05 levo vital signs for today blood pressure 108/86 heart rate 103 respirations 23 temperature 97.6 ?F and she is satting at 95% oxygenation on 3 L nasal cannula. We believe her hepatic encephalopathy has resolved she is AO x 3 GCS of 15. We are starting her on midodrine 10 p.o. every 6 hours. We are repeating the EKG to reevaluate the left bundle branch block. Discontinuing the octreotide drip. Her lactic acid continues to be elevated 2.9 most likely has to do with poor clearance due to her cirrhosis. Stopping zosyn and starting cefazolin IV. Urine cultures returned with no growth. Exam Vital Signs Temp Pulse Resp BP Pulse Ox O2 Del Method O2 Flow Rate 97.9 F 93 22 H 76/63 L 96 Nasal Cannula 2 03/04/25 08:00 03/04/25 10:15 03/04/25 10:15 03/04/25 10:15 03/04/25 10:15 03/04/25 04:00 03/04/25 07:04 FiO2 3 03/03/25 17:31 Narrative Exam General: AAOx3, eyes are open, morbidly obese,in distress, open mouth HEENT: Mucous membranes moisture much improved, conjuctiva much improved, more clear today, PERRL, accomodation intact. Cardiovascular: S1, S2, radial pulses +2 bilat, RRR Pulmonary: Difficulty appreciated breath sounds GI: Abdomen distended, bowel sounds present, diffusely ttp, stable inguinal crease lesions Extremities: Anasarca, dorsalis pedis pulses +2 bilaterally. IV fluid extravasation on R hand, (IV site changed). Neuro: AAOx3 Skin: Right inguinal fold shows draining ulcer that does not appear to be infected at this time, however it appears to be about 2 cm deep, multiple areas of purpura throughout body Psych: Unable to cooperate Objective Labs 03/04/25 04:40 03/04/25 04:40 Labs: Laboratory Results - last 24 hr 03/03/25 03/03/25 03/03/25 07:29 10:48 10:48 WBC RBC Hgb Hct MCV MCH MCHC RDW Std Deviation Plt Count Neut % (Auto) Lymph % (Auto) [place] % (Auto) Eos % (Auto) Baso % (Auto) Neut # (Auto) Lymph # (Auto) [place] # (Auto) Eos # (Auto) Baso # (Auto) Immature Gran # (Auto) Absolute Nucleated RBC Immature Gran % Nucleated RBC % PT INR APTT Puncture Site ABG pH ABG pCO2 ABG pO2 ABG HCO3 ABG O2 Saturation ABG Base Excess FiO2 Sodium Potassium Chloride Carbon Dioxide Anion Gap BUN Creatinine Estim Creat Clear Calc eGFR BUN/Creatinine Ratio Glucose Calculated Osmolality Lactic Acid 4.3 H* 4.3 H* Calcium Corrected Calcium Phosphorus Magnesium Total Bilirubin AST ALT Alkaline Phosphatase Total Protein Albumin Globulin Albumin/Globulin Ratio Coccidioides IgM Ab Negative 03/03/25 03/03/25 03/03/25 15:17 16:55 21:25 WBC RBC Hgb Hct MCV MCH MCHC RDW Std Deviation Plt Count Neut % (Auto) Lymph % (Auto) [place] % (Auto) Eos % (Auto) Baso % (Auto) Neut # (Auto) Lymph # (Auto) [place] # (Auto) Eos # (Auto) Baso # (Auto) Immature Gran # (Auto) Absolute Nucleated RBC Immature Gran % Nucleated RBC % PT INR APTT Puncture Site ABG pH ABG pCO2 ABG pO2 ABG HCO3 ABG O2 Saturation ABG Base Excess FiO2 Sodium Potassium Chloride Carbon Dioxide Anion Gap BUN Creatinine Estim Creat Clear Calc eGFR BUN/Creatinine Ratio Glucose Calculated Osmolality Lactic Acid 2.7 H 2.6 H 3.0 H Calcium Corrected Calcium Phosphorus Magnesium Total Bilirubin AST ALT Alkaline Phosphatase Total Protein Albumin Globulin Albumin/Globulin Ratio Coccidioides IgM Ab 03/04/25 03/04/25 03/04/25 04:40 05:02 06:59 WBC 16.5 H RBC 3.46 L Hgb 10.9 L Hct 33.7 L MCV 97 MCH 31.5 MCHC 32.3 RDW Std Deviation 61.9 H Plt Count 84 L Neut % (Auto) 76 Lymph % (Auto) 16 [place] % (Auto) 6 Eos % (Auto) 1 Baso % (Auto) 0 Neut # (Auto) 12.6 H Lymph # (Auto) 2.6 [place] # (Auto) 1.0 H Eos # (Auto) 0.2 Baso # (Auto) 0.0 Immature Gran # (Auto) 0.14 H Absolute Nucleated RBC 0.02 H Immature Gran % 1 H Nucleated RBC % 0 PT 23.7 H D INR 2.4 H APTT 43.5 H Puncture Site Right Radial ABG pH 7.42 ABG pCO2 42 ABG pO2 54 L* D ABG HCO3 27 H ABG O2 Saturation 90 L ABG Base Excess 2 FiO2 21 Sodium 145 Potassium 3.8 Chloride 103 Carbon Dioxide 26.1 Anion Gap 16 BUN 39 H Creatinine 2.8 H Estim Creat Clear Calc 25.8 L eGFR 18 L BUN/Creatinine Ratio 14 Glucose 92 Calculated Osmolality 298 H Lactic Acid 2.9 H Calcium 8.7 Corrected Calcium 9.0 Phosphorus 4.5 Magnesium 2.5 Total Bilirubin 1.9 H AST 77 H ALT 39 Alkaline Phosphatase 309 H D Total Protein 5.7 Albumin 3.6 Globulin 2.1 L Albumin/Globulin Ratio 1.7 Coccidioides IgM Ab 03/04/25 09:45 WBC RBC Hgb Hct MCV MCH MCHC RDW Std Deviation Plt Count Neut % (Auto) Lymph % (Auto) [place] % (Auto) Eos % (Auto) Baso % (Auto) Neut # (Auto) Lymph # (Auto) [place] # (Auto) Eos # (Auto) Baso # (Auto) Immature Gran # (Auto) Absolute Nucleated RBC Immature Gran % Nucleated RBC % PT INR APTT Puncture Site ABG pH ABG pCO2 ABG pO2 ABG HCO3 ABG O2 Saturation ABG Base Excess FiO2 Sodium Potassium Chloride Carbon Dioxide Anion Gap BUN Creatinine Estim Creat Clear Calc eGFR BUN/Creatinine Ratio Glucose Calculated Osmolality Lactic Acid 2.8 H Calcium Corrected Calcium Phosphorus Magnesium Total Bilirubin AST ALT Alkaline Phosphatase Total Protein Albumin Globulin Albumin/Globulin Ratio Coccidioides IgM Ab ABG Interpretation ABG results: 03/01/25 03/01/25 03/02/25 09:05 16:01 04:53 ABG pH 7.37 7.33 L 7.44 D ABG pCO2 34 34 35 ABG pO2 99 99 82 L ABG HCO3 20 18 L 24 ABG O2 Saturation 99 H 98 97 ABG Base Excess -5 L -7 L 0 03/02/25 03/03/25 03/04/25 08:43 04:28 05:02 ABG pH 7.48 H 7.40 7.42 ABG pCO2 29 L 40 D 42 ABG pO2 130 H D 75 L D 54 L* D ABG HCO3 22 25 27 H ABG O2 Saturation 100 H 96 90 L ABG Base Excess -1 0 2 Quality Measures Quality Measures VTE prophylaxis Advance care planning discussed with:: patient and spouse Assessment & Plan Assessment Current Active Medications: Generic Name Dose Route Start Last Admin Trade Name Freq PRN Reason Stop Dose Admin Acetaminophen 650 mg 03/01/25 14:01 03/03/25 02:07 Acetaminophen 325 Mg Tablet NG 03/31/25 14:00 650 mg Q6H PRN Administration Fever >100.4 or pain 1-3 Albuterol/Ipratropium 3 ml 03/04/25 07:03 Albuterol/Ipratropium (Duoneb) Rt Rosario 3 Ml Nebu INH 03/31/25 14:59 Q4HRRT PRN wheeze Artificial Tears 0 drop 03/02/25 08:48 03/02/25 09:49 Artificial Tears 225 Drop/15 Ml Btl BOTH EYES 04/01/25 08:47 2 drops PRN PRN Administration TO KEEP EYES MOIST Ciprofloxacin 0 drop 03/02/25 13:45 03/04/25 07:30 Ciprofloxacin Op Rosario 0.3% 5 Ml Btl BOTH EYES 03/06/25 13:44 2 drop Q6H RAMON Administration Gabapentin 200 mg 03/03/25 16:00 03/04/25 05:30 Gabapentin 100 Mg Capsule NG 04/02/25 15:59 200 mg TID RAMON Administration Heparin Sodium (Porcine) 5,000 unit 03/01/25 21:00 03/04/25 08:39 Heparin Sod Inj 5000 Unit/Ml Vial SC 03/15/25 20:59 5,000 unit Q12HR RAMON Administration Heparin Sodium (Porcine) 3,100 unit 03/01/25 18:45 03/03/25 17:26 Heparin Sod Inj 1000 Unit/Ml Vial 10 Ml INDWELLCAT 03/15/25 18:44 3,100 unit X1 PRN Administration DIALYSIS Albumin Human 25 gm in 100 mls @ 100 mls/hr 03/01/25 14:20 03/02/25 16:35 Albuminex 25% Ivpb IV Infused Q30MIN PRN Infusion DIALYSIS Norepinephrine/Dextrose 8 mg in 250 mls @ 11.737 mls/hr 03/01/25 18:25 03/04/25 06:30 Levophed In D5w 8mg/250ml IV 03/31/25 18:24 0.05 mcg/kg/min .[id number] PRN 11.737 mls/hr PER PROTOCOL Titration Protocol 0.05 MCG/KG/MIN Albumin Human 25 gm in 100 mls @ 100 mls/hr 03/02/25 11:00 03/04/25 04:27 Albuminex 25% Ivpb IV 03/04/25 10:59 100 mls/hr Q6H RAMON Administration Octreotide Acetate 1,000 mcg/ 102 mls @ 5.1 mls/hr 03/02/25 10:47 03/04/25 02:05 Sodium Chloride IV 03/07/25 10:47 50 mcg/hr .Q20H RAMON 5.1 mls/hr Protocol Administration 50 MCG/HR Piperacillin/Tazobactam/Dextrose 3.375 gm in 50 mls @ 12.5 mls/hr 03/02/25 22:00 03/04/25 05:35 Zosyn IV 03/09/25 21:59 12.5 mls/hr Q8HR RAMON Administration Protocol Vancomycin HCl 250 mls @ 125 mls/hr 03/03/25 10:00 03/03/25 11:08 Vancomycin/Water 1250 Mg Ivpb IV 03/10/25 09:59 125 mls/hr Q36H RAMON Administration Protocol Lactulose 40 gm 03/03/25 14:00 03/04/25 05:45 Lactulose Syrup 20 Gm/30 Ml Udc PO 04/02/25 13:59 40 gm TID RAMON Administration Protocol Levothyroxine Sodium 125 mcg/ 150 mcg 03/05/25 06:00 Levothyroxine Sodium 25 mcg PO 04/04/25 05:59 ACBR RAMON Lidocaine 1 patch 03/02/25 11:57 03/03/25 19:25 Lidocaine 5% 1 Patch TOP 04/01/25 11:56 1 patch UD PRN Administration localized pain Miconazole Nitrate 0 gm 03/02/25 12:00 03/04/25 08:38 Miconazole Nitrate Cr 2% 15 Gm Tube TOP 04/01/25 11:59 1 applicatio BID RAMON Administration Midodrine 10 mg 03/04/25 10:00 Midodrine 5 Mg Tablet PO 04/03/25 09:59 Q6H RAMON Ondansetron HCl 4 mg 03/01/25 14:01 Ondansetron Inj 2 Mg/Ml Inj 2 Ml IVP 03/31/25 14:00 Q6H PRN NAUSEA OR VOMITING Protocol Oxycodone/Acetaminophen 1 tab 03/03/25 16:39 03/04/25 09:22 Oxycodone/Apap 5/325 Tablet PO 03/08/25 09:27 1 tab Q6H PRN Administration pain 8-10 or breakthrough pain Pharmacy Consult 1 each 03/02/25 09:00 Vancomycin Pharmacy To Dose 1 Each Each IV 04/01/25 08:59 QDAY PRN PROTOCOL Rifaximin 550 mg 03/02/25 11:00 03/04/25 08:38 Rifaximin 550 Mg Tablet NG 03/09/25 10:59 550 mg BID RAMON Administration Sodium Chloride 3 ml 03/01/25 11:02 Sodium Chloride Rt Rosario 0.9% 3 Ml Nebu INH 03/31/25 11:01 PRN PRN SOLN Plan Assessment 70-year-old female with a history of chronic kidney disease (CKD), cirrhosis, hypothyroidism, recent giardia infection, and chronic back pain (oxy q4), was recently admitted with severe hyperkalemia (K 7.1), KADI, and generalized weakness, who is currently admitted in the ICU for shock and severe hyperkalemia that has since resolved. Still requiring very minimal pressors, will attempt to downgrade once done with dialysis and pressors, if BPs remain stable for 6 hours following pressor DC. Neurology #Acute hepatic encephalopathy - resolved DDx: Hepatic encephalopathy, infectious, Metabolic, uremic Dx: Head CT, CMP, Blood cultures, B12, Syphilis Rx: See GI section, ID section and renal, NPO with NG RRX: If underlying problems aren't resolved Cardiology: #Shock DDx: Distributive versus Cardiogenic versus obstructive 03/04 still on levophed albeit low dose. Will wean off and assess for BP stability. At this time, patient is not acutely decompensated liver failure which could be a component of the distributive shock, also patient could have infection and contribute to septic shock, unlikely obstructive there does not seem to be cardiac tamponade, or PE. Patient is not fluid responsive seen with NICOM and passive leg raise. Echo results LVEF 50-55%, mild mitral valve regurgitation, mild tricuspid valve regurgitation. Dx: NICOM, physical exam, echocardiogram, blood cultures, chest x-ray Rx: IV antibiotics, see GI section for liver treatment RRX: If underlying liver disease or infection not treated appropriately #Left bundle branch block - resolved Stable, FUP with repeat EKG: LBBB no longer present, sinus rhythm, QRSd 113, QTc 397 #Hypotension On pressors now, planning to wean off. Starting midodrine 10mg PO Q6H #NSTEMI Type II, likely related to demand ischemia, resolved Pulmonary: Stable Gastrointestinal: #Acute decompensated liver failure, secondary to #Hx of MYERS, confirmed by biopsy #Hepatic encephalopathy DDx: Hepatorenal syndrome, cirrhosis, SBP Dx: CMP, abdominal exam, blood cultures, Ammonia Rx: Albumin 25 mg IV every 6 hours, octreotide drip (stopped 03/03), stopped Levophed (03/03), Lactulose 40 gm TID (on rectal tube) RRX: If hepatorenal syndrome worsens #Transaminitis, improving DDx: Shock liver, MYERS, alcohol use, medication induced Dx: CMP Rx: Treat underlying condition of decompensated liver failure, hepatorenal syndrome and infection, CMP RRX:if underlying condition does not improve #Hyperbilirubinemia As above, stable Nephrology: #Acute renal failure #Electrolyte disturbances DDx: ATN, prerenal, intrinsic, postrenal Could be related to infection, could be related to acute tubular necrosis Dx: CMP, urine sodium and creatinine, renal ultrasound, blood cultures Rx: CMP, IV antibiotics, hemodialysis with albumin and Levophed PRN RRX: If infection does not resolve or patient does not tolerate hemodialysis #Severe hyperkalemia - resolved DDx: Renal failure Dx: CMP Rx: CMP, hemodialysis RRX: If renal failure does not improve or medicines that increase hyperkalemia are given #Respiratory Alkalosis secondary to tachypnea #Metabolic acidosis secondary to #Lactic Acidosis - ongoing Lactate trend 4.3 -> 2.7 -> 2.6 -> 3.0 -> 2.9. Most likely 2/2 to poor clearance because cirrhosis. DDx: Related to pain, renal failure, infection related Dx: CMP, VBG Rx: Hemodialysis, pain control RRX: If infection or renal failure is not treated Hematology: #Leukocytosis - improving DDx: Infectious, stress related Dx: Blood cultures, CBC Rx: CBC, IV antibiotics, pain control RRX: An infection is not controlled #Coagulopathy DDx: Infectious, stress related Dx: Blood cultures, CBC, Coagulation panel Rx: CBC, IV antibiotics, pain control RRX: if infection is not tx Endocrine: #History of hypothyroidism #Subclinical hypothyroidism Stable Recheck within 4 to 6 weeks for thyroid studies as TSH was 7.87 (high), free T4 within normal limits Infectious Disease: #Sepsis DDx: Abdominal Infection, Skin infection, Urine Tachycardic, white count 21 Lactate Elevated SOFA: 8 points Dx: Blood cultures, MRSA nares, skin examination Rx: IV vancomycin and Zosyn (DC'd 03/04), currently on IV cefazolin (03/04- RRX: If we need additional imaging or infection is not treated appropriately Skin: #R subclavian catheter infection Patient has pustulent drainage from subclavian catheter site. No pain reported. Dr. Mccauley notified, plan to have IR removal and replacement tomorrow. Tx: -IV cefazolin (03/04 - #R Groin Ulcer DDx: Bursted Abscess, Ulcer Unsure if patient has had procedure in area in past Dx: Skin examination, BC Rx: IV Abx, as above, Wound care BID RRX: If further imaging is warranted #ICU Health maintenance Mechanical ventilation: None Sedation: None Diet: N.p.o., has NG for medicines DVT prophylaxis: Heparin subq q12h GI prophylaxis: None Falcon: Yes Lines: Tri-Flow, PIV Antibiotics: IV cefazolin (03/04- CODE STATUS: Full Patient seen and care discussed with my attending physician, Dr. Myrick and supervising resident Dr. Candelario Thomas Note written by Andrey Bhatt PGY-1 This document was transcribed using voice recognition technology. Minor inaccuracies may be present. Attending Provider Attestation/Addendum pt seen and examined , d/w resident team. In short this is a 70yo F admitted to the ICU for AMS and shock with hyperkalemia. She underwent HD with improvement in her K. She has a profound hepatic encephalopathy and is on lactulose q2hr with no BM. She is still very altered. She dropped her BP on HD and required vasopressor support however her hypotension persisted beyond the HD and she is still on levophed. ? decompensated cirrhosis for her distributive shock picture. cont to ween as able. fu on LA. on physical exam she is somnolent with shallow breathing, mild wheezing, distant heart sounds, abd s/nt/bs+ with edema of LE. case d/w ICU team labs , imaging, records reviewed ~39ccmin required for eval, exam, review, intervention, discussion and formulation of POC for this critically ill pt with shock on vasopressors.
--- NOTE | 2025-03-04 10:40 | EKG_ITS ---
[facility] Test Date: 2025-03-04 Pat Name: KOMAL GARCIA [facility] Gender[facility] Engineer Assistant: ELEAZAR : 1955 Requested By: Andrey Bhatt Order Number: [id number] Reading MD: Andrey Bhatt Measurements Intervals [place] Rate: 90 P: 2 AR: 137 QRS: 3 QRSD: 113 T: 95 QT: 323 QTc: 397 Interpretive Statements SINUS RHYTHM POSSIBLE LATERAL MYOCARDIAL INFARCTION , PROBABLY OLD Compared to ECG 03/01/2025 08:05:56 Myocardial infarct finding now present Left bundle-branch block no longer present /store/S0/[id number]
[2025-03-04] MEDS: MIDODRINE 5 MG TABLET 10 MG PO ×3 (10:48→21:26)
[2025-03-04] MEDS: LEVOTHYROXINE SODIUM 125 MCG, LEVOTHYROXINE SODIUM 25 MCG 150 MCG PO (10:49)
--- NOTE | 2025-03-04 11:02 | ESPR_ITS ---
Documentation for date of: 03/04/25 Subjective Subjective Interval history: This is a 70-year-old female who was admitted to the ICU for hyperkalemia and altered mental status. She has a history of Yoder cirrhosis. She had a dialysis catheter placed and underwent dialysis for her hyperkalemia. She tolerated well. There have been no acute overnight events. This morning she is awake alert oriented x 3 and appropriate. She is complaining of significant amount of pain. She states that the pain is everywhere . She is afebrile she has a decreased urinary output 03/04-yesterday afternoon/evening required reinstatement of her Levophed. Today she remains awake alert and communicative. There is a rectal tube in place for her liquid stool secondary to her lactulose. She has had a poor urinary output, she is afebrile. She has had 2 out of 2 bottles positive for GPC's and repeat blood cultures were sent Critical Care Note Critical care time (min.): 40 Exam Vital Signs Temp Pulse Resp BP Pulse Ox O2 Del Method O2 Flow Rate 97.9 F 93 22 H 82/61 L 96 Nasal Cannula 2 03/04/25 08:00 03/04/25 10:48 03/04/25 10:15 03/04/25 10:48 03/04/25 10:15 03/04/25 04:00 03/04/25 07:04 FiO2 3 03/03/25 17:31 Narrative Exam General-no acute distress, morbidly obese, awake alert and oriented x 3, appropriate HEENT-normocephalic, atraumatic, sclera icteric, oral mucosa is dry, pupils equal and reactive Chest-lungs clear to auscultation bilaterally, heart rate regular and rhythmic, no bruits murmurs auscultated times exam, no increased work of breathing Abdomen-obese, soft, nontender, bowel sounds present, no rebound or guarding, generalized discomfort Extremities-edema of both lower extremities and upper extremities noted, no mottling, no clubbing, bruising on her upper extremities from prior IVs Drips Levophed Physical Exam Completion Physical Exam Complete?: Yes 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 03/04/25 04:40 03/04/25 04:40 Labs: Laboratory Results - last 24 hr 03/03/25 03/03/25 03/03/25 07:29 10:48 10:48 WBC RBC Hgb Hct MCV MCH MCHC RDW Std Deviation Plt Count Neut % (Auto) Lymph % (Auto) [place] % (Auto) Eos % (Auto) Baso % (Auto) Neut # (Auto) Lymph # (Auto) [place] # (Auto) Eos # (Auto) Baso # (Auto) Immature Gran # (Auto) Absolute Nucleated RBC Immature Gran % Nucleated RBC % PT INR APTT Puncture Site ABG pH ABG pCO2 ABG pO2 ABG HCO3 ABG O2 Saturation ABG Base Excess FiO2 Sodium Potassium Chloride Carbon Dioxide Anion Gap BUN Creatinine Estim Creat Clear Calc eGFR BUN/Creatinine Ratio Glucose Calculated Osmolality Lactic Acid 4.3 H* 4.3 H* Calcium Corrected Calcium Phosphorus Magnesium Total Bilirubin AST ALT Alkaline Phosphatase Total Protein Albumin Globulin Albumin/Globulin Ratio Coccidioides IgM Ab Negative 03/03/25 03/03/25 03/03/25 15:17 16:55 21:25 WBC RBC Hgb Hct MCV MCH MCHC RDW Std Deviation Plt Count Neut % (Auto) Lymph % (Auto) [place] % (Auto) Eos % (Auto) Baso % (Auto) Neut # (Auto) Lymph # (Auto) [place] # (Auto) Eos # (Auto) Baso # (Auto) Immature Gran # (Auto) Absolute Nucleated RBC Immature Gran % Nucleated RBC % PT INR APTT Puncture Site ABG pH ABG pCO2 ABG pO2 ABG HCO3 ABG O2 Saturation ABG Base Excess FiO2 Sodium Potassium Chloride Carbon Dioxide Anion Gap BUN Creatinine Estim Creat Clear Calc eGFR BUN/Creatinine Ratio Glucose Calculated Osmolality Lactic Acid 2.7 H 2.6 H 3.0 H Calcium Corrected Calcium Phosphorus Magnesium Total Bilirubin AST ALT Alkaline Phosphatase Total Protein Albumin Globulin Albumin/Globulin Ratio Coccidioides IgM Ab 03/04/25 03/04/25 03/04/25 04:40 05:02 06:59 WBC 16.5 H RBC 3.46 L Hgb 10.9 L Hct 33.7 L MCV 97 MCH 31.5 MCHC 32.3 RDW Std Deviation 61.9 H Plt Count 84 L Neut % (Auto) 76 Lymph % (Auto) 16 [place] % (Auto) 6 Eos % (Auto) 1 Baso % (Auto) 0 Neut # (Auto) 12.6 H Lymph # (Auto) 2.6 [place] # (Auto) 1.0 H Eos # (Auto) 0.2 Baso # (Auto) 0.0 Immature Gran # (Auto) 0.14 H Absolute Nucleated RBC 0.02 H Immature Gran % 1 H Nucleated RBC % 0 PT 23.7 H D INR 2.4 H APTT 43.5 H Puncture Site Right Radial ABG pH 7.42 ABG pCO2 42 ABG pO2 54 L* D ABG HCO3 27 H ABG O2 Saturation 90 L ABG Base Excess 2 FiO2 21 Sodium 145 Potassium 3.8 Chloride 103 Carbon Dioxide 26.1 Anion Gap 16 BUN 39 H Creatinine 2.8 H Estim Creat Clear Calc 25.8 L eGFR 18 L BUN/Creatinine Ratio 14 Glucose 92 Calculated Osmolality 298 H Lactic Acid 2.9 H Calcium 8.7 Corrected Calcium 9.0 Phosphorus 4.5 Magnesium 2.5 Total Bilirubin 1.9 H AST 77 H ALT 39 Alkaline Phosphatase 309 H D Total Protein 5.7 Albumin 3.6 Globulin 2.1 L Albumin/Globulin Ratio 1.7 Coccidioides IgM Ab 03/04/25 09:45 WBC RBC Hgb Hct MCV MCH MCHC RDW Std Deviation Plt Count Neut % (Auto) Lymph % (Auto) [place] % (Auto) Eos % (Auto) Baso % (Auto) Neut # (Auto) Lymph # (Auto) [place] # (Auto) Eos # (Auto) Baso # (Auto) Immature Gran # (Auto) Absolute Nucleated RBC Immature Gran % Nucleated RBC % PT INR APTT Puncture Site ABG pH ABG pCO2 ABG pO2 ABG HCO3 ABG O2 Saturation ABG Base Excess FiO2 Sodium Potassium Chloride Carbon Dioxide Anion Gap BUN Creatinine Estim Creat Clear Calc eGFR BUN/Creatinine Ratio Glucose Calculated Osmolality Lactic Acid 2.8 H Calcium Corrected Calcium Phosphorus Magnesium Total Bilirubin AST ALT Alkaline Phosphatase Total Protein Albumin Globulin Albumin/Globulin Ratio Coccidioides IgM Ab Assessment & Plan Additional Assessment Additional Assessment: In summary this is a 70-year-old female admitted to the ICU with hyperkalemia and decompensated cirrhosis with hepatic encephalopathy a/p CAFETERIA CLERK Hepatic encephalopathy-currently resolved with lactulose. She has had multiple bowel movements therefore her lactulose will be decreased to 40 mg every 8 hours - Appears to be back at baseline Chronic pain-patient was started on gabapentin as well as her home Percocet though this was spaced out to every 6 hours instead of Q4. She continues to complain of generalized pain CV shock-required Levophed once more overnight for probable distributive shock. She is down to 0.01 mcg this morning and anticipate being able to come off today. She is however going for dialysis. Will start her on midodrine 10 mg p.o. Q6. Her blood cultures came back as 2 out of 2 GPC bottles. Official identification reveals a Staphylococcus hominis which appears to be pansensitive. Will switch to cefazolin. Repeat blood cultures have been sent and are still pending. Port of entry may be the patient's wound on her right inguinal area. Tropinemia- in the setting of KADI and sepsis, likely type II and trending down Resp stable Renal Acute kidney injury-unclear if this is prerenal versus possible hepatorenal. - Has completed her 48 hours of octreotide and albumin -No significant change in her urinary output or improvement in her creatinine -Followed by nephrology who does not feel that this is hepatorenal syndrome -Will stop the octreotide and albumin AGMA- 2/2 LA, fu on repeat, may be 2/2 sepsis - Lactic acid trending down and improving GI Cirrhosis-lactulose and rifaximin - Has had significant stool output Endo Hypothyroids- cont synthroid Heme Leukocytosis-currently trending downward -Stable Anemia-has had a drop from arrival, no active bleeding noted, may be dilutional in nature, will continue to monitor -Continues with slow trend down -Stool does not appear to be melanotic in nature Thrombocytopenia- drop by more than half, LILIAN v sepsis, recheck, baseline PLTs are 200s - Platelet count stable today Coagulopathy-patient has had daily increases in her INR, will give vitamin K. This is in the setting of cirrhosis ID Bacteremia- GPC 2/2 bottles with poss staph, repeat bcx, MRSA is neg, cont abx , unclear source ? R groin wound as port of entry, TTE did not show vegetation -Have de-escalated to cefazolin Sepsis- meets criteria for SIRS with unclear source and GPC bacteremia - GPC's identified as Staph hominis - Wait for follow-up blood cultures case d/w ICU team labs, imaging, records reviewed ~ 40ccmin required for eval, exam, review, intervention, dicussion and formulation of POC for this critically ill patient with shock on vasopressors at a high risk of further ongoing decompensation Provider Notation Provider Notation: Although this document has been carefully reviewed, there may still be some phonetic and other typographical errors. These errors are purely grammatical due to imperfections in the software program and should not be construed in any way to compromise the substance of the patient's medical care during this visit. Thank you for the opportunity and privilege in assisting you with this patient's care and management.
[2025-03-04] MEDS: ceFAZolin/D5W 1 GM IVPB 1 GM/50 ML BAG IV ×2 (11:45→20:21)
[2025-03-04] MEDS: PHYTONADIONE INJ 10 MG/ML AMP SC (11:45)
[2025-03-04] MEDS: HEPARIN SOD INJ 1000 UNIT/ML VIAL 10 ML 3100 UNIT INDWELLCAT (16:24)
[2025-03-04] MEDS: Norepinephrine/D5W 8mg/250ml 8 MG/250 ML BAG 7.042 MG IV (17:09)
[2025-03-04] MEDS: LIDOCAINE 5% 1 PATCH TOP (20:24)
[2025-03-04 21:00] LABS: Vitamin B12 1168 pg/mL (211-911)
[2025-03-05] VITALS (33 sets, daily range): BP systolic 76–122; BP diastolic 37–79; PULSE 48–108; RESP 18–26; TEMP 36–36.8; O2SAT 92–96; BMI 48.5
--- NOTE | 2025-03-05 01:47 | EVENTNT_ITS ---
<Statement entered by Marty Parker MD - 03/05/25 06:42> I have personally seen and examined the patient, agree with residents assessment and plan Patient plan of care was discussed with the attending physician, Dr. 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 The patient was initially admitted to ICU for management of shock and severe hyperkalemia, and downgraded to medical floors overnight on 03/04-03/05 due to stable MAP for 6 hours following discontinuation of vasopressors. The patient initially presented with a GCS of 11 with the patient found to be repeating herself and yelling at her rehab facility, with eyes wide open unresponsive to questions or commands. Over the course of the patient's ICU stay, the patient received daily dialysis sessions with slow improvement of mentation over the course of her ICU stay. Blood cultures were drawn, which showed 2 out of 2 GPC's with only 1 resulting as pansensitive Staphylococcus hominis and the other still reported as GPC resembling staph. The patient was started on vancomycin and Zosyn initially, which was then de-escalated to ce fazolin. Repeat blood cultures negative after 24 hours. Levophed was started when the patient was admitted on 03/01, however the ICU team had difficulty weaning the patient off of Levophed as the patient would have drops in blood pressure during dialysis sessions. The patient eventually completed and his most recent dialysis session on 03/04 at 1632, and Levophed was then weaned off at 1733 on the same day, and the patient has not needed vasopressors for several hours, hence the patient was downgraded to the medical floors. Per ICU team's evaluation, it was thought that her acute encephalopathy from the patient's MASLD cirrhosis was most likely hepatic encephalopathy, especially given that the patient improved with lactulose encouraging bowel movements. ICU team started the patient on midodrine 10 mg every 6 hours with a MAP goal of above 60 with a source of the patient's shock being decompensated cirrhosis resulting in a distributive shock. Per nephrology consultation, the patient's KADI is likely secondary to acute tubular necrosis following hemodynamic instability and hypoperfusion/hypotension, less suspicious of hepatorenal syndrome and for the patient's acute encephalopathy most likely secondary to uremic encephalopathy and hepatic encephalopathy. #Acute decompensated liver cirrhosis 2/ #MASLD cirrhosis #Coagulopathy #Shock, resolved #Hypotension Patient is noted to have a history of liver cirrhosis from MASLD given negative hepatitis panel, negative alcohol consumption history, and biopsy from liver mass showing macrovascular and microvascular steatosis with ballooning. Patient initially presented with a blood pressure of 87/60 and has required the use of Levophed in the ICU to maintain MAP above 65. Patient has since been downgraded to medical floors on 03/04-03/05 overnight due to stable blood pressure off of Levophed. Diagnostic: Coagulation panel on diver to medical floors significant for PT 23.7, INR 2.4, and PTT 43.5 On downgrade to medical floors, MELD-Na score 32 points, 52.6% estimated 3-month mortality On downgrade to medical floors, Maddrey score 54.8 points, poor prognosis On downgrade to medical floors, Child-Spicer score 8 points, abdominal surgery perioperative mortality 30% Treatment: Patient to follow-up with outpatient GI Midodrine 10 mg every 6 hours Per ICU team, MAP goal above 60 Patient is status post octreotide drip (03/02 - 03/04) Patient received one-time dose of vitamin K injection 10 mg subcutaneous on 03/04 Patient is status post albumin 25 g every 6 hours (03/02 - 03/04) #Acute hepatic encephalopathy #Uremic encephalopathy Patient initially presented with GCS of 11 and was found repeating herself and yelling at her rehab facility. Likely secondary to a mixture of acute hepatic encephalopathy and uremic encephalopathy. Patient has had gradual improvement of her mental status over her ICU stay with the addition of lactulose and di alysis sessions. Diagnostic: Ammonia on 03/01 noted to be 178 BUN on 03/01 noted to be 102 Treatment: Nephrology consulted, appreciate recommendations Dialysis sessions as directed by nephrology Lactulose 40 g 3 times daily, titrate to obtain 2-3 bowel movements per day Rifaximin 550 mg twice daily #GPC bacteremia #Leukocytosis #Right subclavian catheter infection In ICU, patient was noted to have consistent elevation in WBC with blood cultures both growing GPC's, where 1 shows Staphylococcus hominis and the other still shows GPC resembling staph and downgrade to medical floors. Source of entry is unclear, however ICU did suspect entry through right groin wound. On ICU note prior to downgrade, it was noted that the patient had pustulant drainage from subclavian dialysis catheter site. Patient was previously on vancomycin and Zosyn, which has been de-escalated by ICU team. Diagnostic: Blood cultures collected on 03/01 show GPC's in both bottles, pansensitive Staphylococcus hominis in 1 while the second still shows GPC resembling staph Urine culture collected 03/02 shows no growth Repeat blood culture collected on 03/03 shows no growth after 24 hours Treatment: ICU team has notified Nephrology Dr Mccauley, plans for IR removal and replacement of temporary dialysis catheter Cefazolin 1 g every 12 hours (03/04?) #KADI on CKD stage IV #Severe hyperkalemia, resolved Patient noted to have elevated creatinine of 3.7 on initial labs in ED with underlying CKD stage IV where creatinine baseline lies around 1.2-2.8 and potassium on initial labs in ED noted to be 7.7. Nephrology was consulted on this patient, who suspects KADI secondary to acute tubular necrosis following hemodynamic instability and hypoperfusion/hypotension with lower suspicion for hepatorenal syndrome. Patient has temporary dialysis catheter and has been receiving dialysis daily in the ICU. Treatment: Continue to monitor with daily renal panel Nephrology consulted, appreciate recommendations Patient to receive dialysis per recommendations of nephrology Renal diet modification Avoid nephrotoxic drugs, renally dose medications #Lactic acidosis, improving Patient noted to have elevated lactic acidosis with highest being 7.9 on 03/01. Lactic acid 2.8 on downgrade from ICU, may be chronically elevated given the patient's decompensation of her cirrhosis resulting in poor clearance of lactic acid. Treatment: Will continue to monitor #NSTEMI type II, likely demand ischemia Patient noted to have slight elevation in troponin on 03/02 which up trended to maximum of 0.049, but then subsequently down trended later in the day to 0.048. Treatment: Patient to follow-up outpatient #Transaminitis, improving #Hyperbilirubinemia Patient noted to have elevated AST with uptrending ALT during ICU stay. LFTs noted to be downtrending on downgrade to medical floors. Likely secondary to liver cirrhosis decompensation and shock, but with improvement in patient's condition, LFTs also improved. Treatment: Daily CMP to monitor LFTs and bilirubin #History of hypothyroidism #Subclinical hypothyroidism Patient noted to have TSH of 7.87 with free T4 within normal limits Treatment: Patient will follow-up outpatient Levothyroxine 150 mcg ACBR DVT Prophylaxis: Heparin GI Prophylaxis: N/A Bowel: Lactulose Diet: Full liquid, renal Falcon: Yes Lines: Tri-Flow, PIV Antibiotics: Cefazolin Code Status: FULL Reason for Hospitalization: Acute encephalopathy & hyperkalemia Other Barriers to Discharge: Dialysis catheter exchange, rehab placement Patient plan of care was discussed with the senior resident Dr. Parker (PGY-2) and attending physician Dr. Tre Blackwood, PGY1
[2025-03-05] MEDS: MIDODRINE 5 MG TABLET 10 MG PO ×4 (03:28→21:40)
[2025-03-05] MEDS: LACTULOSE SYRUP 20 GM/30 ML UDC 40 GM PO ×3 (05:29→21:40)
[2025-03-05] MEDS: LEVOTHYROXINE SODIUM 125 MCG, LEVOTHYROXINE SODIUM 25 MCG 150 MCG PO (05:30)
[2025-03-05] MEDS: GABAPENTIN 100 MG CAPSULE 200 MG NG ×3 (05:30→21:40)
[2025-03-05 06:28] LABS: Basophils # (Auto) 0.1 Thou/mm3 (0.0-0.2); Basophils % (Auto) 0 % (0-2.5); Eosinophils # (Auto) 0.2 Thou/mm3 (0.0-0.5); Eosinophils % (Auto) 2 % (0-10); Hematocrit 39.9 % (36.0-46.0); Hemoglobin 12.2 g/dL (12.0-16.0); Immature Granulocytes Auto 0.18 Thou/mm3 (0.00-0.00); Lymphocytes # (Auto) 2.4 Thou/mm3 (1.0-4.8); Lymphocytes % (Auto) 16 % (10-50); Mean Corpuscular HGB Conc 30.6 g/dl (31.0-37.0); Mean Corpuscular Hemoglobin 30.6 pg (25.0-35.0); Mean Corpuscular Volume 100 fL (80-100); Monocytes # (Auto) 1.0 Thou/mm3 (0.0-0.8); Monocytes % (Auto) 6 % (0-12); Neutrophils # (Auto) 11.6 Thou/mm3 (1.8-7.7); Neutrophils % (Auto) 75 % (37-80); Nucleated Red Blood Cell # 0.04 Thou/mm3 (0.00-0.00); Nucleated Red Blood Cell % 0 /100 WBC (0); RDW Standard Deviation 66.7 fL (36.4-46.3); Red Blood Count 3.99 Miln/mm3 (4.00-5.20); White Blood Count 15.5 Thou/mm3 (3.6-11.0)
[2025-03-05 06:35] LABS: INR 1.9 (0.9-1.3); Partial Thromboplastin Time 37.8 Seconds (22.0-36.0); Prothrombin Time 19.3 Seconds (9.0-12.2)
[2025-03-05 06:48] LABS: Alanine Aminotransferase 25 U/L (10-49); Albumin, Serum 3.7 gm/dL (3.4-4.8); Albumin/Globulin Ratio 1.5 (1.2-2.2); Alkaline Phosphatase 323 U/L (46-116); Anion Gap 17 (7-16); Aspartate Amino Transferase 78 U/L (0-34); BUN/Creatinine Ratio 9 Ratio (12-20); Bilirubin,Total 2.4 mg/dL (0.3-1.2); Blood Urea Nitrogen 26 mg/dL (9-23); Calcium 9.3 mg/dL (8.3-10.6); Calcium (Corrected) 9.5 mg/dL (8.5-10.1); Carbon Dioxide 24.3 mMol/L (20.0-31.0); Chloride 101 mMol/L (98-107); Creatinine (Component) 3.0 mg/dL (0.6-1.3); Estimated Creatinine Clearance 24.3 mL/min (>60); Globulin 2.4 gm/dL (2.3-3.5); Glucose 62 mg/dL (74-106); Magnesium 2.4 mg/dL (1.6-2.6); Osmolality,Calculated 285 (275-295); Phosphorous 3.5 mg/dL (2.4-5.1); Potassium 3.5 mMol/L (3.4-5.1); Sodium 142 mMol/L (136-145); Total Protein 6.1 gm/dL (5.7-8.2); eGFR 16 See Note
[2025-03-05 07:03] LABS: Platelet Count 79 Thou/mm3 (140-440)
[2025-03-05 07:25] LABS: Lactate (Lactic Acid) 3.5 mMol/L (0.4-2.0)
[2025-03-05 08:18] LABS: Slide Review Platelets confirmed
[2025-03-05] MEDS: ACETAMINOPHEN 325 MG TABLET 650 MG NG (08:43)
[2025-03-05] MEDS: ceFAZolin/D5W 1 GM IVPB 1 GM/50 ML BAG IV ×2 (08:44→20:40)
[2025-03-05] MEDS: HEPARIN SOD INJ 5000 UNIT/ML VIAL SC ×2 (08:59→20:40)
--- NOTE | 2025-03-05 09:49 | ESPR_ITS ---
<Statement entered by Tiffany Carney MD - 03/17/25 09:22> I reviewed above note and agree with findings and plans. I have also personally examined the patient with medicine team and went over assessment and plan with medical team including international relations professor and resident physician. <Statement entered by Wil Logan MD - 03/05/25 15:10> In summary: this 70-year-old female with a history of hypothyroidism, CKD stage 3b, cirrhosis, and chronic back pain was admitted to the ICU for shock and severe hyperkalemia, later downgraded to the medical floor after stable blood pressure following vasopressor discontinuation. 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 Her acute hepatic encephalopathy and uremic encephalopathy have improved with lactulose and dialysis. She also experienced GPC bacteremia, likely from a subclavian catheter infection, and has been treated with CEFAZOLIN. Additionally, she has KADI on CKD, and improving liver function tests. Other conditions include NSTEMI type II and subclinical hypothyroidism, for which she will follow up with outpatient care. However, lactic acid has been rising although she is maintaining adequate MAP. We initiated LR 500 cc but LA increased again. We gave ALBUMIN X1 and trending LA. Unclear infection source. US showed cholelithiasis without cholecystitis, edematous gallbladder wall but she has cirrhosis and will follow-up with MRCP. We also ordered CT abdomen pelvis to rule out abdominal infection and given the right groin rash. I?ve reviewed the note and agree with this assessment and plan, with the exceptions outlined above. I personally went over the labs, imaging, home medications, and prior records, and examined the patient. The case was also reviewed with the attending physician. Please note: this document was transcribed using voice recognition technology; minor inaccuracies may be present. Wil Logan DO PGY II Documentation for date of: 03/05/25 Subjective Subjective Interval history: Downgraded from ICU overnight, off vasopressors. Patient seen and examined at bedside. The patient refers back pain that is chronic, switched home Percocet to [place]. Initial lactate this morning 3.5, repeat lactate 6.1, 6.9, uptrending. ICU team was reconsulted, recommend 500 cc bolus IV fluids and ABG if worsening acidosis. 25g of albumin ordered in addition of 500mL LR. Of note, there was concern for purulent drainage at right subclavian dialysis cath insertion site. The site was examined today and appears dry, clean, intact. T. Bili continue to uptrend, US gallbladder reveals cholelithiasis with gallbladder wall thickening, MRCP and CT abd ordered. Dialysis today, follow up with ABG. Continue to trend lactate. Exam Vital Signs Temp Pulse Resp BP Pulse Ox O2 Del Method O2 Flow Rate 97.8 F 103 H 20 96/63 93 L Nasal Cannula 2 03/05/25 08:00 03/05/25 08:00 03/05/25 08:00 03/05/25 08:00 03/05/25 08:00 03/05/25 08:00 03/05/25 08:00 FiO2 3 03/03/25 17:31 Narrative Exam General: Awake and in no acute distress. A/O x 4. HEENT: Normocephalic, atraumatic, mucous membranes moist. Heart: Regular rate and rhythm Lungs: Clear to auscultation with no wheezing or crackles. Abdomen: Soft, distended, nontender. No guarding or rebound tenderness. Neurologic: Alert and oriented x3, no gross neurological deficit. Extremities: 3+ pitting edema in lower extremities. Skin: Ecchymoses/Abrasion to RLQ of abdomen, laceration to right groin, coccyx pressure injury. Objective Labs 03/05/25 04:20 03/05/25 04:20 Labs: Laboratory Results - last 24 hr 03/03/25 03/04/25 03/05/25 07:29 09:45 04:20 WBC 15.5 H RBC 3.99 L Hgb 12.2 Hct 39.9 MCV 100 MCH 30.6 MCHC 30.6 L RDW Std Deviation 66.7 H Plt Count 79 L Neut % (Auto) 75 Lymph % (Auto) 16 [place] % (Auto) 6 Eos % (Auto) 2 Baso % (Auto) 0 Neut # (Auto) 11.6 H Lymph # (Auto) 2.4 [place] # (Auto) 1.0 H Eos # (Auto) 0.2 Baso # (Auto) 0.1 Immature Gran # (Auto) 0.18 H Absolute Nucleated RBC 0.04 H Immature Gran % 1 H Nucleated RBC % 0 PT 19.3 H D INR 1.9 H APTT 37.8 H Sodium 142 Potassium 3.5 Chloride 101 Carbon Dioxide 24.3 Anion Gap 17 H BUN 26 H Creatinine 3.0 H Estim Creat Clear Calc 24.3 L eGFR 16 L BUN/Creatinine Ratio 9 L Glucose 62 L Calculated Osmolality 285 Lactic Acid 2.8 H Calcium 9.3 Corrected Calcium 9.5 Phosphorus 3.5 Magnesium 2.4 Total Bilirubin 2.4 H D AST 78 H ALT 25 Alkaline Phosphatase 323 H Total Protein 6.1 Albumin 3.7 Globulin 2.4 Albumin/Globulin Ratio 1.5 Vitamin B12 1168 H Misc Test Result Platelets confirmed 03/05/25 07:11 WBC RBC Hgb Hct MCV MCH MCHC RDW Std Deviation Plt Count Neut % (Auto) Lymph % (Auto) [place] % (Auto) Eos % (Auto) Baso % (Auto) Neut # (Auto) Lymph # (Auto) [place] # (Auto) Eos # (Auto) Baso # (Auto) Immature Gran # (Auto) Absolute Nucleated RBC Immature Gran % Nucleated RBC % PT INR APTT Sodium Potassium Chloride Carbon Dioxide Anion Gap BUN Creatinine Estim Creat Clear Calc eGFR BUN/Creatinine Ratio Glucose Calculated Osmolality Lactic Acid 3.5 H Calcium Corrected Calcium Phosphorus Magnesium Total Bilirubin AST ALT Alkaline Phosphatase Total Protein Albumin Globulin Albumin/Globulin Ratio Vitamin B12 Misc Test Result ABG Interpretation ABG results: 03/01/25 03/01/25 03/02/25 09:05 16:01 04:53 ABG pH 7.37 7.33 L 7.44 D ABG pCO2 34 34 35 ABG pO2 99 99 82 L ABG HCO3 20 18 L 24 ABG O2 Saturation 99 H 98 97 ABG Base Excess -5 L -7 L 0 03/02/25 03/03/25 03/04/25 08:43 04:28 05:02 ABG pH 7.48 H 7.40 7.42 ABG pCO2 29 L 40 D 42 ABG pO2 130 H D 75 L D 54 L* D ABG HCO3 22 25 27 H ABG O2 Saturation 100 H 96 90 L ABG Base Excess -1 0 2 Quality Measures Quality Measures VTE prophylaxis Advance care planning discussed with:: patient Assessment & Plan Assessment Current Active Medications: Generic Name Dose Route Start Last Admin Trade Name Freq PRN Reason Stop Dose Admin Acetaminophen 650 mg 03/01/25 14:01 03/05/25 08:43 Acetaminophen 325 Mg Tablet NG 03/31/25 14:00 650 mg Q6H PRN Administration Fever >100.4 or pain 1-3 Albuterol/Ipratropium 3 ml 03/04/25 07:03 Albuterol/Ipratropium (Duoneb) Rt Rosario 3 Ml Nebu INH 03/31/25 14:59 Q4HRRT PRN wheeze Artificial Tears 0 drop 03/02/25 08:48 03/02/25 09:49 Artificial Tears 225 Drop/15 Ml Btl BOTH EYES 04/01/25 08:47 2 drops PRN PRN Administration TO KEEP EYES MOIST Gabapentin 200 mg 03/03/25 16:00 03/05/25 05:30 Gabapentin 100 Mg Capsule NG 04/02/25 15:59 200 mg TID RAMON Administration Heparin Sodium (Porcine) 5,000 unit 03/01/25 21:00 03/05/25 08:59 Heparin Sod Inj 5000 Unit/Ml Vial SC 03/15/25 20:59 5,000 unit Q12HR RAMON Administration Heparin Sodium (Porcine) 3,100 unit 03/01/25 18:45 03/04/25 16:24 Heparin Sod Inj 1000 Unit/Ml Vial 10 Ml INDWELLCAT 03/15/25 18:44 3,100 unit X1 PRN Administration DIALYSIS Cefazolin Sodium/Dextrose 1 gm in 50 mls @ 50 mls/hr 03/04/25 11:30 03/05/25 08:44 Ancef Ivpb IV 03/11/25 11:29 50 mls/hr Q12HR RAMON Administration Lactulose 40 gm 03/03/25 14:00 03/05/25 05:29 Lactulose Syrup 20 Gm/30 Ml Udc PO 04/02/25 13:59 40 gm TID RAMON Administration Protocol Levothyroxine Sodium 125 mcg/ 150 mcg 03/05/25 06:00 03/05/25 05:30 Levothyroxine Sodium 25 mcg PO 04/04/25 05:59 150 mcg ACBR RAMON Administration Lidocaine 1 patch 03/02/25 11:57 03/04/25 20:24 Lidocaine 5% 1 Patch TOP 04/01/25 11:56 1 patch UD PRN Administration localized pain Miconazole Nitrate 0 gm 03/02/25 12:00 03/04/25 20:20 Miconazole Nitrate Cr 2% 15 Gm Tube TOP 04/01/25 11:59 1 applicatio BID RAMON Administration Midodrine 10 mg 03/04/25 10:00 03/05/25 03:28 Midodrine 5 Mg Tablet PO 04/03/25 09:59 10 mg Q6H RAMON Administration Ondansetron HCl 4 mg 03/01/25 14:01 Ondansetron Inj 2 Mg/Ml Inj 2 Ml IVP 03/31/25 14:00 Q6H PRN NAUSEA OR VOMITING Protocol Oxycodone/Acetaminophen 1 tab 03/03/25 16:39 03/05/25 03:30 Oxycodone/Apap 5/325 Tablet PO 03/08/25 09:27 1 tab Q6H PRN Administration pain 8-10 or breakthrough pain Pharmacy Consult 1 each 03/04/25 11:09 Pharmacy Renal Dose Adjustment 1 Ea XX 04/03/25 11:08 PRN PRN CONSULT Rifaximin 550 mg 03/02/25 11:00 03/05/25 08:44 Rifaximin 550 Mg Tablet NG 03/09/25 10:59 550 mg BID RAMON Administration Sodium Chloride 3 ml 03/01/25 11:02 Sodium Chloride Rt Rosario 0.9% 3 Ml Nebu INH 03/31/25 11:01 PRN PRN SOLN Plan This is a 70-year-old female with history of hypothyroidism, CKD3b, cirrhosis, recent Giardia infection, and chronic back pain who was initially admitted to the ICU for shock and severe hyperkalemia, downgraded to [facility] on 03/05/25 due to stable MAP for 6 hours following discontinuation of vasopressors. 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 Patient initially presented with a blood pressure of 87/60 and has required the use of Levophed in the ICU to maintain MAP above 65. Patient has since been downgraded to medical floors on 03/04-03/05 overnight due to stable blood pressure off of Levophed. Diagnostic: - Coagulation panel on admission significant for PT 23.7, INR 2.4, and PTT 43.5 - On downgrade to medical floors, MELD-Na score 32 points, 52.6% estimated 3- month mortality - On downgrade to medical floors, Maddrey score 54.8 points, poor prognosis - On downgrade to medical floors, Child-Spicer score 8 points, abdominal surgery perioperative mortality 30% Treatment: - Patient to follow-up with outpatient GI - Midodrine 10 mg every 6 hours - Per ICU team, MAP goal above 60 - Patient is status post octreotide drip (03/02 - 03/04) - Patient received one-time dose of vitamin K injection 10 mg subcutaneous on 03/04 - Patient is status post albumin 25 g every 6 hours (03/02 - 03/04) - Ordered albumin 25g x 1 #Acute hepatic encephalopathy #Uremic encephalopathy Patient initially presented with GCS of 11 and was found repeating herself and yelling at her rehab facility. Likely secondary to a mixture of acute hepatic encephalopathy and uremic encephalopathy. Patient has had gradual improvement of her mental status over her ICU stay with the addition of lactulose and dialysis sessions. Diagnostic: - Ammonia on 03/01 noted to be 178, downtrending - BUN on 03/01 noted to be 102, downtrending Treatment: - Nephrology consulted, appreciate recommendations - Dialysis sessions as directed by nephrology (03/03, 03/05) - Lactulose 40 g 3 times daily, titrate to obtain 2-3 bowel movements per day - Rifaximin 550 mg twice daily #GPC bacteremia #Leukocytosis - downtrending #Right subclavian catheter infection - suspected In ICU, patient was noted to have consistent elevation in WBC with blood cultures both growing GPC's, where 1 shows Staphylococcus hominis and the other still shows GPC resembling staph and downgrade to medical floors. Source of entry is unclear, however ICU did suspect entry through right groin wound. On ICU note prior to downgrade, it was noted that the patient had pustulant drainage from subclavian dialysis catheter site. The site was examined and appeared dry, clean, and intact. Patient was previously on vancomycin and Zosyn, which has been de-escalated by ICU team. Diagnostic: - Blood cultures collected on 03/01 show GPC's in both bottles, pansensitive Staphylococcus hominis in 1 while the second still shows GPC resembling staph - Urine culture collected 03/02 shows no growth - Repeat blood culture collected on 03/03 shows no growth after 24 hours Treatment: - Cefazolin 1 g every 12 hours (03/04?03/11) #KADI on CKD stage IV #Severe hyperkalemia - resolved Patient noted to have elevated creatinine of 3.7 on initial labs in ED with underlying CKD stage IV where creatinine baseline lies around 1.2-2.8 and potassium on initial labs in ED noted to be 7.7. Nephrology was consulted on this patient, who suspects KADI secondary to acute tubular necrosis following hemodynamic instability and hypoperfusion/hypotension with lower suspicion for hepatorenal syndrome. Patient has temporary dialysis catheter and has been receiving dialysis daily in the ICU. Treatment: - Continue to monitor with daily renal panel - Nephrology consulted, appreciate recommendations - Patient to receive dialysis per recommendations of nephrology (03/03, 03/05) - Renal diet modification - Avoid nephrotoxic drugs, renally dose medications #Lactic acidosis, worsening Patient noted to have elevated lactic acidosis with highest being 7.9 on 03/01. Lactic acid 2.8 on downgrade from ICU, may be chronically elevated given the patient's decompensation of her cirrhosis resulting in poor clearance of lactic acid. Since downgrade on 03/05, lactate continued to uptrend. ICU was reconsulted, recommend 500 cc bolus IV fluids and consider ABG if worsening acidosis. Treatment: - Will continue to monitor - Last lactate 6.9, trend lactate Q4H (3 series) - 500cc LR IV bolus x 1 - Follow up with ABG #NSTEMI type II, likely demand ischemia Patient noted to have slight elevation in troponin on 03/02 which up trended to maximum of 0.049, but then subsequently down trended later in the day to 0.048. Treatment: - Patient to follow-up outpatient #Transaminitis, improving #Hyperbilirubinemia #Multiple liver lesions Patient noted to have elevated AST with uptrending ALT during ICU stay. LFTs noted to be downtrending on downgrade to medical floors. Likely secondary to liver cirrhosis decompensation and shock, but with improvement in patient's condition, LFTs also improved. Treatment: - Daily CMP to monitor LFTs and bilirubin - Continue elevated of T. Bili, gallbladder US ordered, revealed cholelithiasis with multiple liver lesions and gallbladder wall thickening at 0.8cm. - Pending MRCP and CT abdomen. #History of hypothyroidism #Subclinical hypothyroidism Patient noted to have TSH of 7.87 with free T4 within normal limits Treatment: - Patient will follow-up outpatient - Levothyroxine 150 mcg ACBR Health maintenance Dispo: Pending resolution of lactic acidosis, rehab placement DVT prophylaxis: SubQ Heparin GI prophylaxis: N/A Antibiotics: Cefazolin Bowel regimen: Lactulose Diet: Renal Lines: Tri-Flow, PIV, Falcon, NG, rectal tube Code status: Full code Case discussed with my senior resident Dr. Logan Case discussed with my attending Dr. Angelika Rosenberg, DO PGY 1
[2025-03-05] MEDS: MICONAZOLE NITRATE CR 2% 15 GM TUBE TOP ×2 (10:04→20:40)
[2025-03-05] MEDS: Artificial Tears 225 DROP/15 ML BTL BOTH EYES (10:06)
[2025-03-05 10:24] LABS: Reflex Lactate? Y
--- NOTE | 2025-03-05 10:29 | XR_ITS ---
Examination: Abdomen sonogram, Limited Date and time of exam: March 05, 2025, 1134 hours INDICATION: Elevated total bilirubin on laboratory examination today, abdominal pain 1 week. Technique: Real-time gómez scale transabdominal sonographic images of the upper abdomen obtained. Findings: Gallbladder sludge 7 mm gallstone Gallbladder wall is thickened 0.8 cm and edematous Common bile duct 0.4 cm Pancreas obscured by bowel gas Liver 25.5 cm irregular contour, multiple masses, the largest/in the right lobe of the liver 7.4 x 5.1 x 5.3 cm Hepatopetal portal venous flow noted patent IVC Mild to moderate ascites IMPRESSION: Cirrhosis Cholelithiasis Thickened edematous wall, however the patient has cirrhosis and ascites, consider HIDA scan or MRCP follow-up Multiple liver lesions
[2025-03-05 11:04] LABS: Lactate (Lactic Acid) 6.1 mMol/L (0.4-2.0)
--- NOTE | 2025-03-05 11:58 | EVENTNT_ITS ---
<Statement entered by Dominick Mejia MD - 03/05/25 14:29> I have reviewed the note and agree with the resident's assessment & plan with exceptions as below. I have personally reviewed labs, imaging, home meds/prior records, examined the patient, formulated and discussed management plan with the IM team. Dominick Mejia, PGY-2 Internal Medicine Documentation for date of: 03/05/25 Event Note Event Note: On March 05 ICU team was consulted to evaluate patient Elle Poe for low blood pressures and to reexamine her inguinal right inguinal wound. She has been having elevated lactic acidosis was 3.5 earlier and now it is 6.1 she is on dialysis and will receive dialysis today. She also has poor clearance of her lactic due to her nonalcoholic steatotic hepatitis. Today she presented most alert and oriented seen by the interviewer she is AO x 3 she is able to communicate effectively and she is much more awake and lively while still being bedbound. Of note when speaking to the he stated that 1 month ago the patient fell on her right side. She crawled until they had to call EMS to help pick her up he believes that the lesions on her inguinal area from her pulling herself on the ground. Vital signs: blood pressure is 97/57 heart rate is 67 respiratory rate is 20 temperature is 97.8 and she is satting 93% on 2 L of nasal cannula Pertinent physical exam findings are the right sided abdominal bruising striation along the right lower quadrant into her right inguinal area, she has 2 lesions 1 is more superficial and superior to the inguinal crease while deep under the pannus. The superficial superior lesion is about the size of a nickel 1 x 1 cm in circumference and very superficial in depth. The other inguinal lesion is also around 0.5 cm in circumference around the size of a shanita and it is about 0.5 cm to 1 cm in depth there is no pustulant material noted unable to express fluids or blood. Patient reports not having any pain in that area. Plan -500 cc bolus IV fluids -Consider ABG if worsening acidosis -Follow-up official ultrasound read -Consider making the lidocaine patch every 6 hours patient reports much improved pain with it -As of right now not needing interventional measures in the ICU encourage patient to have p.o. intake if blood pressure drops ICU will be happy to reevaluate the patient again -Will be keeping an eye on her for the next couple hours Patient examined and plan discussed with attending Dr. Myrick and supervising resident Dr. Mejia. Note Written by Andrey Bhatt PGY-1
[2025-03-05] MEDS: RINGERS LACTATED 500 ML 500 ML 999 ML IV (12:30)
[2025-03-05 13:55] LABS: Reflex Lactate? Y
[2025-03-05 14:26] LABS: Lactic Acid, 3 HR 6.9 mMol/L (0.4-2.0)
--- NOTE | 2025-03-05 14:27 | XR_ITS ---
Examination: CT abdomen and pelvis without contrast. Coronal 3-D reconstructions. Sagittal 2-D reconstructions. Date and time of exam: February,, 1904 hours INDICATIONS: Generalized abdominal pain today COMPARISON: February 17, 2025 CTDI: vol (mGy): 22.1 DLP: (mGycm): 1486 Technique: Axial images of the abdomen have been obtained, 3 mm slice thickness Intravenous contrast material has not been administered. Low dose protocols were performed. One or more of the following dose reduction techniques were used; automated exposure control, adjustment of the mA and/or KV according to patient size, use of iterative reconstruction technique. Findings: Mild bibasilar atelectasis with minimal pleural fluid Cirrhosis, liver irregular in contour, suspicious for esophageal varices Fluid subcapsular to liver measuring up to 4 cm in thickness Mild to moderate ascites Spleen is not enlarged No pancreatic mass Atrophic right kidney No hydronephrosis No bowel obstruction, although moderate colonic ileus Colonic diverticulosis Detail in the pelvis resists reduced secondary to IV left hip arthroplasty Severe osteopenia with chronic osteoporotic compressions lumbar and thoracic vertebral bodies IMPRESSION: Cirrhosis, suspicious for esophageal varices Mild to moderate ascites including fluid subcapsular to the liver Atrophic right kidney, no hydronephrosis No bowel obstruction, although colonic ileus
--- NOTE | 2025-03-05 15:02 | PC.SS ---
Rounding Note: Patient is an ICU downgrade. Lactic level remains elevated. D/C date pending.
[2025-03-05] MEDS: ALBUMIN HUMAN-KJDA 25% IVPB 25 GM/100 ML BTL IV ×2 (15:22→17:10)
[2025-03-05 16:32] LABS: Base Excess 2 (-3-3); HCO3 27 mEq/L (20-26); Inspired O2, VO2 Liters 2 L/min; O2 Saturation 96 % (91-98); PCO2 44 mmHg (32.0-48.0); PO2 69 mmHg (83-108); pH, Arterial 7.40 (7.35-7.45)
[2025-03-05 16:37] LABS: Allen Test Performed/OK; Puncture Site Right Radial
[2025-03-05 17:58] LABS: Lactate (Lactic Acid) 3.2 mMol/L (0.4-2.0)
[2025-03-05] MEDS: HEPARIN SOD INJ 1000 UNIT/ML VIAL 10 ML 3100 UNIT INDWELLCAT (18:03)
[2025-03-05 20:54] LABS: Reflex Lactate? Y
[2025-03-05 22:21] LABS: Lactate (Lactic Acid) 3.7 mMol/L (0.4-2.0)
--- NOTE | 2025-03-05 23:02 | ESPR_ITS ---
RE: KOMAL GARCIA : 1955 DATE OF SERVICE: 03/05/2025 HISTORY OF PRESENT ILLNESS: Briefly, she is a 70-year-old woman with past medical history significant for hypertension, fatty liver, hypothyroidism, obesity, stage IV CKD, possibly stage V CKD, now with baseline serum creatinine around 1.2-2.8 mg per dL, who presented to the hospital on 03/01/2025 with altered level of consciousness and was found with elevated ammonia level and severe lactic acidosis. Patient was dialyzed almost every day until she started becoming more oriented. She was transferred out of ICU once she was more coherent. Dialysis was not planned today; however, it seems like lactic acidosis continues to creep up. Initially it was at 3 and repeat laboratory test showed it was 6. Patient will be dialyzed anytime today. CURRENT MEDICATIONS: 1. Acetaminophen. 2. Albumin p.r.n. 3. Gabapentin 300 mg p.o. t.i.d. 4. Hydrocodone. 5. Levothyroxine 150 mcg p.o. daily. 6. Midodrine 10 mg p.o. q.6 h. 7. Ondansetron. 8. Rifaximin 550 mg p.o. b.i.d. PHYSICAL EXAMINATION: GENERAL: She is awake, alert, conversing with her daughter. VITAL SIGNS: Blood pressure of 93/81, heart rate of 90. HEENT: Anicteric sclerae. Normocephalic. NECK: Supple. No JVD. CHEST AND LUNGS: Symmetric expansion. Clear breath sounds. CARDIAC: Without murmur. ABDOMEN: Soft and nontender. EXTREMITIES: No edema. LABORATORY DATA: Hemoglobin 12.2, WBC 15,500, platelet count 79,000. Sodium 142, potassium 3.5, chloride 101, CO2 24.3, BUN 26, creatinine 3, glucose 62, and lactic acid 6.9. ASSESSMENT: 1. Oliguric acute kidney injury secondary to acute tubular necrosis following hemodynamic instability and hypoperfusion and hypotension on advanced chronic kidney disease. 2. Lactic acidosis most likely secondary to combination of kidney and liver failure. 3. Obtundation now improved secondary to uremic encephalopathy and hepatic encephalopathy. 4. Obesity. 5. Sepsis. PLAN: Patient will be dialyzed shortly. Continue current medications. Her blood cultures x2 grew Staphylococcus hominis. Patient is currently on IV cefazolin 1 g q.12 h., which we will continue. We will continue monitoring lactic acid level. Patient may need tunneled dialysis catheter as she continues to be oliguric. DT: 22:25:58 TT: 23:01:00 Ref: [id number] - TID: [id number] MTDD
[2025-03-06] VITALS (56 sets, daily range): BP systolic 59–127; BP diastolic 36–74; PULSE 68–93; RESP 12–59; TEMP 36.1–36.6; O2SAT 93–96; BMI 48.2
--- NOTE | 2025-03-06 | XR_ITS ---
MRI abdomen, without contrast. MRCP Date and time of exam: 03/06/2025 at 9:26 a.m. Comparison abdominal MRI 12/05/2024. Is an enormous multiloculated contrast-enhancing tumor involving the entire right lobe of the liver and now involving the medial segment left lobe of the liver. Technique: Multiple axial and coronal images of the abdomen have been obtained with the Siemens 1.5T MRI scanner. Images obtained included T1 weighted transverse images, T2-weighted transverse images, T2-weighted transverse images fat-suppressed, T2 weighted haste fat suppressed transverse images, T1 weighted images, in and out of phase images, T2-weighted coronal images, breath hold, T2 weighted haze coronal images as well as T2 weighted coronal thick slab images, MRCP. Findings: On the previous MRI dated 12/05/2024 the patient had a significant lobulated tumor mass located centrally in the upper right lobe of the liver measuring 8.9 cm in diameter, this shows markedly irregular contrast enhancement after gadolinium contrast. In addition after the contrast infusion, there are innumerable small nodular areas of enhancement noted involving a huge area, measuring a maximum of 12 cm in diameter these areas have an appearance consistent with satellite metastatic lesions from the primary tumor surrounding it. Since the previous MRI exam this multiloculated irregularly enhancing neoplasm has enlarged very dramatically, And this malignant tumor now measures 14.9 x 11 cm in diameter, it occupies the entire right lobe of the liver and also involves the medial segment left lobe of the liver. Since the previous is MRI patient has also developed a very small but definite right pleural effusion and a very minimal zone of posterior basal atelectasis at the base of the right and left lower lobes. The cephalocaudal length of the right lobe of the liver has increased significantly from a previous measurement of 20.5 cm 24 cm. The MRCP the rotational images very nicely show the intrahepatic and extrahepatic bile ducts and the pancreatic duct within the head and midportion of the pancreas, all these structures appear normal in appearance and size. There is major dilatation of the stomach with a huge air-fluid level. The left kidney appears normal, the right kidney appears significantly atrophic, its length is 7.2 cm this is unchanged. The patient has developed moderate ascites which was not present on the previous MRI IMPRESSION: 1. The lobulated large malignant neoplasm in the superior portion of the head is enlarged dramatically, it now occupies the entire portion of the right lobe and medial segment of the left lobe in the upper half of the liver, it shows diffuse multilobulated and multi nodular contrast enhancement. Malignant apical neoplasm is certainly the cause, normal certainly represent hepatic cell carcinoma 2 the liver has enlarged moderately since the previous MRI. 3 since the prior MRI the patient has developed moderate ascites. There are also exceedingly minimal pleural effusions at the base of both lower lungs. 4. There is major abnormal distention of the entire stomach with a huge air-fluid level. This probably relates to a major ileus, I do not see anything that would create gastric outlet obstruction although I could not exclude this. Definite placement of nasogastric catheter is recommended. 5. The gallbladder is well seen and normal as are the biliary ducts and pancreatic duct. 6 chronic markedly significant atrophy of the right kidney. 7. There is major chronic compression fracture involving the body of L4 in the lower lumbar spine with about 70% compression of the height of this vertebra this is unchanged
[2025-03-06 01:20] LABS: Reflex Lactate? Y
[2025-03-06 03:02] LABS: Lactate (Lactic Acid) 3.4 mMol/L (0.4-2.0)
[2025-03-06 03:06] LABS: Basophils # (Auto) 0.0 Thou/mm3 (0.0-0.2); Basophils % (Auto) 0 % (0-2.5); Eosinophils # (Auto) 0.2 Thou/mm3 (0.0-0.5); Eosinophils % (Auto) 1 % (0-10); Hematocrit 35.7 % (36.0-46.0); Hemoglobin 10.9 g/dL (12.0-16.0); Immature Granulocytes Auto 0.18 Thou/mm3 (0.00-0.00); Lymphocytes # (Auto) 2.8 Thou/mm3 (1.0-4.8); Lymphocytes % (Auto) 18 % (10-50); Mean Corpuscular HGB Conc 30.5 g/dl (31.0-37.0); Mean Corpuscular Hemoglobin 30.8 pg (25.0-35.0); Mean Corpuscular Volume 101 fL (80-100); Monocytes # (Auto) 1.1 Thou/mm3 (0.0-0.8); Monocytes % (Auto) 7 % (0-12); Neutrophils # (Auto) 11.8 Thou/mm3 (1.8-7.7); Neutrophils % (Auto) 73 % (37-80); Nucleated Red Blood Cell # 0.03 Thou/mm3 (0.00-0.00); Nucleated Red Blood Cell % 0 /100 WBC (0); RDW Standard Deviation 67.9 fL (36.4-46.3); Red Blood Count 3.54 Miln/mm3 (4.00-5.20); White Blood Count 16.2 Thou/mm3 (3.6-11.0)
[2025-03-06 03:07] LABS: Platelet Count 58 Thou/mm3 (140-440)
[2025-03-06 03:21] LABS: INR 1.7 (0.9-1.3); Partial Thromboplastin Time 40.2 Seconds (22.0-36.0); Prothrombin Time 17.0 Seconds (9.0-12.2)
[2025-03-06 03:31] LABS: Alanine Aminotransferase 26 U/L (10-49); Albumin, Serum 3.5 gm/dL (3.4-4.8); Albumin/Globulin Ratio 1.6 (1.2-2.2); Alkaline Phosphatase 266 U/L (46-116); Anion Gap 15 (7-16); Aspartate Amino Transferase 91 U/L (0-34); BUN/Creatinine Ratio 8 Ratio (12-20); Bilirubin,Total 2.7 mg/dL (0.3-1.2); Blood Urea Nitrogen 22 mg/dL (9-23); Calcium 9.0 mg/dL (8.3-10.6); Calcium (Corrected) 9.4 mg/dL (8.5-10.1); Carbon Dioxide 27.3 mMol/L (20.0-31.0); Chloride 99 mMol/L (98-107); Creatinine (Component) 2.6 mg/dL (0.6-1.3); Estimated Creatinine Clearance 28.0 mL/min (>60); Globulin 2.2 gm/dL (2.3-3.5); Glucose 80 mg/dL (74-106); Magnesium 2.0 mg/dL (1.6-2.6); Osmolality,Calculated 283 (275-295); Phosphorous 3.3 mg/dL (2.4-5.1); Potassium 3.0 mMol/L (3.4-5.1); Sodium 141 mMol/L (136-145); Total Protein 5.7 gm/dL (5.7-8.2); eGFR 19 See Note
[2025-03-06 03:55] LABS: Chloride,Urine Random < 20.0 mMol/L (55.0-125.0); Potassium,Urine Random < 10 mMol/L (12-62); Sodium,Urine Random < 15.0 mMol/L (20.0-110.0)
[2025-03-06] MEDS: MIDODRINE 5 MG TABLET 10 MG PO ×5 (04:10→21:31)
[2025-03-06 04:19] LABS: Slide Review Platelets confirmed
[2025-03-06] MEDS: GABAPENTIN 100 MG CAPSULE 200 MG NG ×3 (05:23→21:30)
[2025-03-06] MEDS: LACTULOSE SYRUP 20 GM/30 ML UDC 40 GM PO ×2 (05:23→14:08)
[2025-03-06] MEDS: LEVOTHYROXINE SODIUM 125 MCG, LEVOTHYROXINE SODIUM 25 MCG 150 MCG PO (05:23)
[2025-03-06 06:00] LABS: Reflex Lactate? Y
[2025-03-06 06:30] LABS: Lactic Acid, 3 HR 3.6 mMol/L (0.4-2.0)
[2025-03-06] MEDS: ceFAZolin/D5W 1 GM IVPB 1 GM/50 ML BAG IV (08:06)
[2025-03-06] MEDS: HEPARIN SOD INJ 5000 UNIT/ML VIAL SC ×2 (08:07→21:48)
[2025-03-06] MEDS: MICONAZOLE NITRATE CR 2% 15 GM TUBE TOP ×2 (08:23→22:00)
--- NOTE | 2025-03-06 09:55 | ESPR_ITS ---
<Statement entered by Ronny Smith MD - 03/06/25 17:32> Later in afternoon, RR was called as patient was found to be hypotensive. Patient has become oliguric and has edema, thus fluid could not have been given. Lactate has been increasing along with LFT's. Decision was made to upgrade patient to ICU. I discussed with and supervised the administration internship physician involved in the care of this patient. Patient assessment and plan was discussed with entire medicine team, including my attending. I agree with the assessment and plan as documented by administration internship doctor. Patient care was discussed with my attending physician Dr. David Smith, PGY-3 Documentation for date of: 03/06/25 Subjective Subjective Interval history: This is a 70-year-old female with history of hypothyroidism, CKD3b, cirrhosis, recent Giardia infection, and chronic back pain who was initially admitted to the ICU for shock and severe hyperkalemia, downgraded to MedSurg on 03/05/25 due to stable MAP for 6 hours following discontinuation of vasopressors. 03/05/25: Downgraded from ICU overnight, off vasopressors. Patient seen and examined at bedside. The patient refers back pain that is chronic, switched home Percocet to [place]. Initial lactate this morning 3.5, repeat lactate 6.1, 6.9, uptrending. ICU team was reconsulted, recommend 500 cc bolus IV fluids and ABG if worsening acidosis. 25g of albumin ordered in addition of 500mL LR. Of note, there was concern for purulent drainage at right subclavian dialysis cath insertion site. The site was examined today and appears dry, clean, intact. T. Bili continue to uptrend, US gallbladder reveals cholelithiasis with gallbladder wall thickening, MRCP and CT abd ordered. Dialysis today, follow up with ABG. Continue to trend lactate. 03/06/25: NAOE. BP continued to be soft overnight. K 3.0 this morning after dialysis session yesterday, no plan for potassium repletetion givn her poor renal function. MRCP revealed lobulated large malignant neoplasm in liver that was seen in previous study in November, now occupies the entire portion of the right lobe and medial segment of the left lobe. Per radiology report, malignant apical neoplasm is certainly the cause, normal certainly represent hepatic cell carcinoma. Upon chart review, patient had a liver biopsy on 12/04/24, which showed moderate macrovesicular and microvesicular stateotosis with ballooning, negative for malignancy. A discussion was held at bedside with patient and patient's family regarding obtaining another liver biopsy. Patient was amenable to the idea. At approximately 3:45pm, rapid response was called for asymptomatic hypotension with SBP in the 60. Please refer to event note for further details. Patient was transferred back to ICU for blood pressure support. Exam Vital Signs Temp Pulse Resp BP Pulse Ox O2 Del Method O2 Flow Rate 97.3 F 90 23 H 89/56 L 94 L Nasal Cannula 4 03/06/25 08:00 03/06/25 08:00 03/06/25 08:00 03/06/25 08:00 03/06/25 08:00 03/06/25 08:00 03/06/25 08:00 FiO2 3 03/06/25 04:00 Narrative Exam General: Awake and in no acute distress. A/O x 3. On 3L NC. HEENT: Normocephalic, atraumatic, mucous membranes moist. Heart: Regular rate and rhythm Lungs: Clear to auscultation with no wheezing or crackles. Abdomen: Soft, distended, nontender. No guarding or rebound tenderness. Neurologic: Alert and oriented x3, no gross neurological deficit. Extremities: 3+ pitting edema in lower extremities. Skin: Ecchymoses/Abrasion to RLQ of abdomen, laceration to right groin, coccyx pressure injury. Objective Labs 03/07/25 07:35 03/07/25 12:40 Labs: Laboratory Results - last 24 hr 03/05/25 03/05/25 03/05/25 10:43 14:19 16:21 WBC RBC Hgb Hct MCV MCH MCHC RDW Std Deviation Plt Count Neut % (Auto) Lymph % (Auto) [place] % (Auto) Eos % (Auto) Baso % (Auto) Neut # (Auto) Lymph # (Auto) [place] # (Auto) Eos # (Auto) Baso # (Auto) Immature Gran # (Auto) Absolute Nucleated RBC Immature Gran % Nucleated RBC % PT INR APTT Puncture Site Right Radial ABG pH 7.40 ABG pCO2 44 ABG pO2 69 L ABG HCO3 27 H ABG O2 Saturation 96 ABG Base Excess 2 Oxygen Liter Flow 2 Sodium Potassium Chloride Carbon Dioxide Anion Gap BUN Creatinine Estim Creat Clear Calc eGFR BUN/Creatinine Ratio Glucose Calculated Osmolality Lactic Acid 6.1 H* 6.9 H* Calcium Corrected Calcium Phosphorus Magnesium Total Bilirubin AST ALT Alkaline Phosphatase Total Protein Albumin Globulin Albumin/Globulin Ratio Ur Random Sodium Ur Random Potassium Ur Random Chloride Misc Test Result 03/05/25 03/05/25 03/06/25 17:49 22:16 01:08 WBC RBC Hgb Hct MCV MCH MCHC RDW Std Deviation Plt Count Neut % (Auto) Lymph % (Auto) [place] % (Auto) Eos % (Auto) Baso % (Auto) Neut # (Auto) Lymph # (Auto) [place] # (Auto) Eos # (Auto) Baso # (Auto) Immature Gran # (Auto) Absolute Nucleated RBC Immature Gran % Nucleated RBC % PT INR APTT Puncture Site ABG pH ABG pCO2 ABG pO2 ABG HCO3 ABG O2 Saturation ABG Base Excess Oxygen Liter Flow Sodium Potassium Chloride Carbon Dioxide Anion Gap BUN Creatinine Estim Creat Clear Calc eGFR BUN/Creatinine Ratio Glucose Calculated Osmolality Lactic Acid 3.2 H 3.7 H Calcium Corrected Calcium Phosphorus Magnesium Total Bilirubin AST ALT Alkaline Phosphatase Total Protein Albumin Globulin Albumin/Globulin Ratio Ur Random Sodium < 15.0 L Ur Random Potassium < 10 L Ur Random Chloride < 20.0 L Misc Test Result 03/06/25 03/06/25 02:54 06:20 WBC 16.2 H RBC 3.54 L Hgb 10.9 L Hct 35.7 L MCV 101 H MCH 30.8 MCHC 30.5 L RDW Std Deviation 67.9 H Plt Count 58 L D Neut % (Auto) 73 Lymph % (Auto) 18 [place] % (Auto) 7 Eos % (Auto) 1 Baso % (Auto) 0 Neut # (Auto) 11.8 H Lymph # (Auto) 2.8 [place] # (Auto) 1.1 H Eos # (Auto) 0.2 Baso # (Auto) 0.0 Immature Gran # (Auto) 0.18 H Absolute Nucleated RBC 0.03 H Immature Gran % 1 H Nucleated RBC % 0 PT 17.0 H INR 1.7 H APTT 40.2 H Puncture Site ABG pH ABG pCO2 ABG pO2 ABG HCO3 ABG O2 Saturation ABG Base Excess Oxygen Liter Flow Sodium 141 Potassium 3.0 L D Chloride 99 Carbon Dioxide 27.3 Anion Gap 15 BUN 22 Creatinine 2.6 H Estim Creat Clear Calc 28.0 L eGFR 19 L BUN/Creatinine Ratio 8 L Glucose 80 Calculated Osmolality 283 Lactic Acid 3.4 H 3.6 H Calcium 9.0 Corrected Calcium 9.4 Phosphorus 3.3 Magnesium 2.0 Total Bilirubin 2.7 H AST 91 H ALT 26 Alkaline Phosphatase 266 H D Total Protein 5.7 Albumin 3.5 Globulin 2.2 L Albumin/Globulin Ratio 1.6 Ur Random Sodium Ur Random Potassium Ur Random Chloride Misc Test Result Platelets confirmed ABG Interpretation ABG results: 03/01/25 03/01/25 03/02/25 09:05 16:01 04:53 ABG pH 7.37 7.33 L 7.44 D ABG pCO2 34 34 35 ABG pO2 99 99 82 L ABG HCO3 20 18 L 24 ABG O2 Saturation 99 H 98 97 ABG Base Excess -5 L -7 L 0 03/02/25 03/03/25 03/04/25 08:43 04:28 05:02 ABG pH 7.48 H 7.40 7.42 ABG pCO2 29 L 40 D 42 ABG pO2 130 H D 75 L D 54 L* D ABG HCO3 22 25 27 H ABG O2 Saturation 100 H 96 90 L ABG Base Excess -1 0 2 03/05/25 16:21 ABG pH 7.40 ABG pCO2 44 ABG pO2 69 L ABG HCO3 27 H ABG O2 Saturation 96 ABG Base Excess 2 Quality Measures Quality Measures VTE prophylaxis Advance care planning discussed with:: patient and spouse Assessment & Plan Assessment Current Active Medications: Generic Name Dose Route Start Last Admin Trade Name Darellq PRN Reason Stop Dose Admin Acetaminophen 650 mg 03/01/25 14:01 03/05/25 08:43 Acetaminophen 325 Mg Tablet NG 03/31/25 14:00 650 mg Q6H PRN Administration Fever >100.4 or pain 1-3 Hydrocodone Bitart/Acetaminophen 1 tab 03/05/25 17:30 03/06/25 04:31 Hydrocodone/Apap 10/325 Tab PO 03/10/25 17:29 1 tab Q6HR PRN Administration PAIN SCALE 7-10 (Severe Albuterol/Ipratropium 3 ml 03/04/25 07:03 Albuterol/Ipratropium (Duoneb) Rt Rosario 3 Ml Nebu INH 03/31/25 14:59 Q4HRRT PRN wheeze Artificial Tears 0 drop 03/02/25 08:48 03/05/25 10:06 Artificial Tears 225 Drop/15 Ml Btl BOTH EYES 04/01/25 08:47 1 drops PRN PRN Administration TO KEEP EYES MOIST Gabapentin 200 mg 03/03/25 16:00 03/06/25 05:23 Gabapentin 100 Mg Capsule NG 04/02/25 15:59 200 mg TID RAMON Administration Heparin Sodium (Porcine) 5,000 unit 03/01/25 21:00 03/06/25 08:07 Heparin Sod Inj 5000 Unit/Ml Vial SC 03/15/25 20:59 5,000 unit Q12HR RAMON Administration Heparin Sodium (Porcine) 3,100 unit 03/01/25 18:45 03/05/25 18:03 Heparin Sod Inj 1000 Unit/Ml Vial 10 Ml INDWELLCAT 03/15/25 18:44 3,100 unit X1 PRN Administration DIALYSIS Cefazolin Sodium/Dextrose 1 gm in 50 mls @ 50 mls/hr 03/04/25 11:30 03/06/25 08:06 Ancef Ivpb IV 03/11/25 11:29 50 mls/hr Q12HR RAMON Administration Albumin Human 25 gm in 100 mls @ 0 mls/hr 03/05/25 17:05 03/05/25 17:10 Albuminex 25% Ivpb IV 100 mls/hr Q30M PRN Administration DIALYSIS UD Lactulose 40 gm 03/06/25 14:00 Lactulose Syrup 20 Gm/30 Ml Udc PO 04/02/25 13:59 TID RAMON Protocol Levothyroxine Sodium 125 mcg/ 150 mcg 03/05/25 06:00 03/06/25 05:23 Levothyroxine Sodium 25 mcg PO 04/04/25 05:59 150 mcg ACBR RAMON Administration Lidocaine 1 patch 03/02/25 11:57 03/04/25 20:24 Lidocaine 5% 1 Patch TOP 04/01/25 11:56 1 patch UD PRN Administration localized pain Miconazole Nitrate 0 gm 03/02/25 12:00 03/06/25 08:23 Miconazole Nitrate Cr 2% 15 Gm Tube TOP 04/01/25 11:59 1 applicatio BID RAMON Administration Midodrine 15 mg 03/06/25 09:52 Midodrine 5 Mg Tablet PO 04/03/25 09:59 Q6H RAMON Ondansetron HCl 4 mg 03/01/25 14:01 Ondansetron Inj 2 Mg/Ml Inj 2 Ml IVP 03/31/25 14:00 Q6H PRN NAUSEA OR VOMITING Protocol Pharmacy Consult 1 each 03/04/25 11:09 Pharmacy Renal Dose Adjustment 1 Ea XX 04/03/25 11:08 PRN PRN CONSULT Rifaximin 550 mg 03/02/25 11:00 03/06/25 08:06 Rifaximin 550 Mg Tablet NG 03/09/25 10:59 550 mg BID RAMON Administration Sodium Chloride 3 ml 03/01/25 11:02 Sodium Chloride Rt Rosario 0.9% 3 Ml Nebu INH 03/31/25 11:01 PRN PRN SOLN Plan This is a 70-year-old female with history of hypothyroidism, CKD3b, cirrhosis, recent Giardia infection, and chronic back pain who was initially admitted to the ICU for shock and severe hyperkalemia, downgraded to MedSurg on 03/05/25 due to stable MAP for 6 hours following discontinuation of vasopressors. Reupgraded to ICU on 03/06/25 due to persistent hypotension with elevation of lactate. 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 Patient initially presented with a blood pressure of 87/60 and has required the use of Levophed in the ICU to maintain MAP above 65. Patient has since been downgraded to medical floors on 03/04-03/05 overnight due to stable blood pressure off of Levophed. Diagnostic: - Coagulation panel on admission significant for PT 23.7, INR 2.4, and PTT 43.5 - On downgrade to medical floors, MELD-Na score 32 points, 52.6% estimated 3- month mortality - On downgrade to medical floors, Maddrey score 54.8 points, poor prognosis - On downgrade to medical floors, Child-Spicer score 8 points, abdominal surgery perioperative mortality 30% Treatment: - Patient to follow-up with outpatient GI - Midodrine 10 mg every 6 hours - Per ICU team, MAP goal above 60 - Patient is status post octreotide drip (03/02 - 03/04) - Patient received one-time dose of vitamin K injection 10 mg subcutaneous on 03/04 - Patient is status post albumin 25 g every 6 hours (03/02 - 03/04) - Ordered albumin 25g x 1 (03/05/25) Plan: - Upgraded to ICU on 03/06/25 due to persistent hypotension. #Transaminitis, improving #Hyperbilirubinemia #Multiple liver lesions Patient noted to have elevated AST with uptrending ALT during ICU stay. LFTs noted to be downtrending on downgrade to medical floors. Likely secondary to liver cirrhosis decompensation and shock, but with improvement in patient's condition, LFTs also improved. Treatment: - Daily CMP to monitor LFTs and bilirubin - Continue elevated of T. Bili, gallbladder US ordered, revealed cholelithiasis with multiple liver lesions and gallbladder wall thickening at 0.8cm. - MRCP (03/06) large tumor mass that had enlarged dramatically compare to prior study in Nov 2024. Very high suspicion for hepatic cell carcinoma despite negative liver biopsy for malignancy in Nov 2024. In addition, huge air-fluid level was also noted in stomach, concerning for major ileus. - CT abdomen (03/05) revealed multiple liver lesions. #Lactic acidosis, worsening Patient noted to have elevated lactic acidosis with highest being 7.9 on 03/01. Lactic acid 2.8 on downgrade from ICU, may be chronically elevated given the patient's decompensation of her cirrhosis resulting in poor clearance of lactic acid. Since downgrade on 03/05, lactate continued to uptrend. ICU was reconsulted, recommend 500 cc bolus IV fluids and consider ABG if worsening acidosis. Treatment: - Will continue to monitor - Lactate 3.4 after dialysis session yesterday, repeat lactate prior to ICU upgrade 4.5. - Lactic acidosis most likely secondary to combination of kidney and liver failure per nephrology, however, shock/hypotension/hypoperfusion may also contribute to her lactic acidosis. - 500cc LR IV bolus x 1 (03/05/25) #Acute hepatic encephalopathy - improved #Uremic encephalopathy - improved Patient initially presented with GCS of 11 and was found repeating herself and yelling at her rehab facility. Likely secondary to a mixture of acute hepatic encephalopathy and uremic encephalopathy. Patient has had gradual improvement of her mental status over her ICU stay with the addition of lactulose and dialysis sessions. Diagnostic: - Ammonia on 03/01 noted to be 178, downtrending - BUN on 03/01 noted to be 102, downtrending Treatment: - Nephrology consulted, appreciate recommendations - Dialysis sessions as directed by nephrology (03/03, 03/05) - Lactulose 40 g 3 times daily, titrate to obtain 2-3 bowel movements per day - Rifaximin 550 mg twice daily #GPC bacteremia #Leukocytosis - downtrending #Right subclavian catheter infection - suspected In ICU, patient was noted to have consistent elevation in WBC with blood cultures both growing GPC's, where 1 shows Staphylococcus hominis and the other still shows GPC resembling staph and downgrade to medical floors. Source of entry is unclear, however ICU did suspect entry through right groin wound. On ICU note prior to downgrade, it was noted that the patient had pustulant drainage from subclavian dialysis catheter site. The site was examined and appeared dry, clean, and intact. Patient was previously on vancomycin and Zosyn, which has been de-escalated by ICU team. Diagnostic: - Blood cultures collected on 03/01 show GPC's in both bottles, pansensitive Staphylococcus hominis in 1 while the second still shows GPC resembling staph - Urine culture collected 03/02 shows no growth - Repeat blood culture collected on 03/03 shows no growth after 24 hours Treatment: - Cefazolin 1 g every 12 hours (03/04?03/11) #KADI on CKD stage IV #Severe hyperkalemia - resolved Patient noted to have elevated creatinine of 3.7 on initial labs in ED with underlying CKD stage IV where creatinine baseline lies around 1.2-2.8 and potassium on initial labs in ED noted to be 7.7. Nephrology was consulted on this patient, who suspects KADI secondary to acute tubular necrosis following hemodynamic instability and hypoperfusion/hypotension with lower suspicion for hepatorenal syndrome. Patient has temporary dialysis catheter and has been receiving dialysis daily in the ICU. Treatment: - Continue to monitor with daily renal panel - Nephrology consulted, appreciate recommendations - Patient to receive dialysis per recommendations of nephrology (03/03, 03/05) - Renal diet modification - Avoid nephrotoxic drugs, renally dose medications #NSTEMI type II, likely demand ischemia Patient noted to have slight elevation in troponin on 03/02 which up trended to maximum of 0.049, but then subsequently down trended later in the day to 0.048. Treatment: - Patient to follow-up outpatient #History of hypothyroidism #Subclinical hypothyroidism Patient noted to have TSH of 7.87 with free T4 within normal limits Treatment: - Patient will follow-up outpatient - Levothyroxine 150 mcg AC Health maintenance Dispo: ICU for blood pressure support. DVT prophylaxis: SubQ Heparin GI prophylaxis: N/A Antibiotics: Cefazolin Bowel regimen: Lactulose Diet: Renal Lines: Tri-Flow, PIV, Falcon, NG, rectal tube Code status: Full code Case discussed with my senior resident Dr. Smith Case discussed with my attending Dr. David Rosenberg DO PGY 1 Attending Provider Attestation/Addendum I have seen and examined the patient. I was physically present for the reyes portions of the services provided including history, physical exam, diagnosis, treatment plans and orders. I agree with assessment and plan of care as documented by residents. Even though this this note was carefully revised there may still be minor errors in electrical tech/project manager due to voice recognition software. Thelma Hernandez MD
--- NOTE | 2025-03-06 14:45 | PC.NURSE ---
BP left arm 84/43 (56)map, right arm 79/47 MD notified. New orders.
[2025-03-06] MEDS: ALBUMIN HUMAN-KJDA 25% IVPB 25 GM/100 ML BTL IV (14:58)
[2025-03-06 14:59] LABS: Base Excess, Venous 1 (-3-3); O2 Saturation, Venous 96 % (96-97); PCO2, Venous 44 mmHg (36-56); PO2, Venous 76 mmHg (15-58); pH, Venous 7.38 (7.33-7.66)
[2025-03-06 15:12] LABS: Lactate (Lactic Acid) 4.5 mMol/L (0.4-2.0)
--- NOTE | 2025-03-06 15:23 | PC.NURSE ---
Blood pressure recheck. Left arm 107/74 (85). SOB, coughing. breathing treatment given.
[2025-03-06] MEDS: ALBUTEROL/IPRATROPIUM (Duoneb) RT SOL 3 ML NEBU INH (15:26)
--- NOTE | 2025-03-06 15:30 | PC.SS ---
Rapid response initiated on the patient. Patient has been upgraded to ICU. Family at bedside with patient.
[2025-03-06 15:31] LABS: Alanine Aminotransferase 24 U/L (10-49); Albumin, Serum 3.1 gm/dL (3.4-4.8); Albumin/Globulin Ratio 1.3 (1.2-2.2); Alkaline Phosphatase 291 U/L (46-116); Anion Gap 17 (7-16); Aspartate Amino Transferase 132 U/L (0-34); BUN/Creatinine Ratio 9 Ratio (12-20); Bilirubin,Total 2.5 mg/dL (0.3-1.2); Blood Urea Nitrogen 30 mg/dL (9-23); Calcium 8.7 mg/dL (8.3-10.6); Calcium (Corrected) 9.4 mg/dL (8.5-10.1); Carbon Dioxide 24.1 mMol/L (20.0-31.0); Chloride 99 mMol/L (98-107); Creatinine (Component) 3.5 mg/dL (0.6-1.3); Estimated Creatinine Clearance 20.7 mL/min (>60); Globulin 2.3 gm/dL (2.3-3.5); Glucose 118 mg/dL (74-106); Osmolality,Calculated 286 (275-295); Potassium 3.3 mMol/L (3.4-5.1); Sodium 140 mMol/L (136-145); Total Protein 5.4 gm/dL (5.7-8.2); eGFR 14 See Note
--- NOTE | 2025-03-06 15:43 | PC.NURSE ---
Lactic Acid called to MD 4.5 notified that Blood pressure was 64/40. Pt alert and awake. Rapid Response called.
--- NOTE | 2025-03-06 15:44 | XR_ITS ---
Portable AP semiupright chest film on 03/06/2025 at 4:19 p.m. CLINICAL INDICATION: Shortness of breath and pulmonary rales today. Comparison study, portable chest film on 03/02/2025 FINDINGS: As noted on the previous study, patient is taken a poor inspiration with high position of the diaphragm. However on today's study the findings of mild but definite congestive heart failure seen predominantly throughout the right lung have returned completely to normal. However there does appear to be a small persistent zone of infiltrate/atelectasis in the posterior posterior base of the right lower lobe. The heart size appears slightly improved. In the left the prominent pulmonary arteries seen on the last examination have returned to normal. The entire left lung is clear with the exception of a thick horizontal linear band of subsegmental atelectasis or fibrosis. There is no active pleural effusion seen on either right or left side The nasogastric catheter has been removed. IMPRESSION: 1. 1 the congestive heart failure seen on the previous portable chest film is essentially completely resolved. 2. There is a persistent horizontal thick linear band of discoid atelectasis or fibrosis again seen at the base of the left lower lobe, if anything it is a little smaller than on the prior film. 3 beat nasogastric catheter has been removed. 4 there is a tunneled central venous catheter noted in good position with the distal tip of the catheter extending into the right atrium.
--- NOTE | 2025-03-06 15:48 | PC.NURSE ---
Transferred to ICU via bed. Bedside report given to CINDI Jiménez
[2025-03-06] MEDS: Norepinephrine/D5W 8mg/250ml 8 MG/250 ML BAG 12.328 MG IV (15:55)
--- NOTE | 2025-03-06 16:01 | XR_ITS ---
Examination: CT chest with intravenous contrast CT abdomen with intravenous contrast CT pelvis with intravenous contrast 2-D coronal and sagittal reconstructions Time of exam: March 07, 2025, 0630 hours, comparison March 05, 2025 INDICATIONS: Persistent lactic acid chest and abdominal pain beginning 3 days ago, cirrhosis, ascites, atrophic right kidney on CT study March 05, 2025 CTDI: vol (mGy) : 21.7 DLP: (mGycm): 1641 Technique: Multiple axial images of the chest, abdomen and pelvis with intravenous contrast, 3.0 mm slice thickness. Images obtained post intravenous injection Isovue 370 2D sagittal and coronal reconstructions Low dose protocols, automated exposure control, adjustment of MA KV according to patient size FINDINGS: No thoracic aortic aneurysmal dilatation Pulmonary artery opacification is relatively poor no filling defects depicted Prominent vascular congestion Atelectasis versus pneumonia at the lung bases with small pleural effusions Cirrhosis Multiple liver lesions, the largest is in the mid to posterior right lobe of the liver measuring at least 9 cm Esophageal varices Orogastric tube projects in the stomach Perigastric varices Splenomegaly Portosystemic collateral vessels medial to the spleen Moderate ascites Anasarca No pancreatic mass No adrenal mass Atrophic right kidney, 2 mm lower pole right renal calculus Diffuse wall thickening involving the colon Detail in the pelvis is reduced secondary to the hip arthroplasty on the left Severe osteopenia Moderate narrowing right hip joint Again noted moderate compression fracture L4 which appears subacute IMPRESSION: Mild heart failure Atelectasis versus pneumonia at the lung bases Small bilateral pleural effusions Cirrhosis Multiple liver lesions, the largest in the mid to posterior right lobe of the liver measuring at least 9 cm Esophageal varices, perigastric varices Portosystemic collateral vessels medial to the spleen. Prominent splenomegaly 2 mm nonobstructing lower pole right renal calculus Moderate ascites Anasarca Diffuse thickening of the colonic wall, hepatic colopathy Severe osteopenia, subacute moderate compression fracture L4
--- NOTE | 2025-03-06 16:11 | EVENTNT_ITS ---
<Statement entered by Shon Maya MD - 03/06/25 18:22> Patient was examined and case was reviewed with team including attending physician. Note reviewed, I agree with most of its contents and agree with the patient's care as documented by Dr. Rosenberg RR was called due to hypotension MAP in the 40s. BP was checked in various sites including Left upper extremity, Left forearm, Right upper extremity and right forearm. Patient was on Midodrine 10mg q6 hours, however despite giving midodrine doses at earlier times than scheduled and administrating albumin patients MAPs have not improved, unable to increase midodrine dose as patient is already on the max available dose. Lactic acid continues to trend up, despite mild decreases with HD, after session LA continues to accumulate. Patient is unable to tolerate IVFs as patient is now with crackles and wheezing on physical exam in addition to diffuse edema on the rest of her body. Suspect LA accumulates and not appropiately clearing in setting of GPC bacteremia, HD catheter site infection, continued decompensated liver failure. Due to these findings ICU upgrade seems appropiate for Vasopressor support. Case discussed with my attending Dr. David Maya MD PGY-2 Documentation for date of: 03/06/25 Event Note Event Note: Rapid Response Time: 3:45PM Reason for Call: Hypotension with SBP in the 60s. Patient presentation: - Hypotension with SBPs in the 60s. Patient lying supine in bed. Awake, alert, responding and following command. Complaints of feeling tired and weak. - Vitals: BP 59/39, O2 sat 96% on 4L NC, HR 93, Resp 20. - Denies n/v, SOB, chest pain, abdominal pain. Assessment: - Abd soft, not distended, no guarding or rigidity. - Repeat blood pressure consistently low. - Noted B/L wheeze. Equal chest rise. - A/O x 3, awake, good mentation, GCS 15. - 3+ pitting edema to LE. - Since initial downgrade from ICU, lactate had been labile, Lactate uptrended to 4.5 despite IV albumin infusion and extra dose of midodrine, unable to infuse addition IV fluid due to concern for volume overload, likely due to liver cirrhosis and poor renal function vs. shock - Distributive versus Cardiogenic shock: right groin wound likely the source, Bc x 1/2 grew Staph on 03/01, rpt Bcx negative, covered with Cefazolin. Echo from 03/01 shows left ventricle size is normal and systolic function is mildly reduced. Estimated ejection fraction is 50-55%. There is normal diastolic function. - MRCP noted increase R liver mass, concerning for malignancy despite negative biopsy in Nov 2024. New orders: - Transfer to ICU for blood pressure support - VBG, lactate. --- Attending, Dr. Hernandez and senior resident, Dr. Stock present at bedside. Jeramy Rosenberg, PGY-1
--- NOTE | 2025-03-06 16:26 | ESPR_ITS ---
<Statement entered by Dominick Mejia MD - 03/07/25 16:48> I have reviewed the note and agree with the resident's assessment & plan with exceptions as below. I have personally reviewed labs, imaging, home meds/prior records, examined the patient, formulated and discussed management plan with the IM team. Dominick Mejia, PGY-2 Internal Medicine Documentation for date of: 03/06/25 Subjective Subjective Interval history: 70-year-old female with a history of chronic kidney disease (CKD), cirrhosis, hypothyroidism, recent giardia infection, and chronic back pain (oxy q4), was recently admitted with severe hyperkalemia (K 7.1), KADI, and generalized weakness, who presented today from [facility] due to encephalopathy. ED Course Summary Vitals: BP 87/60 HR 82 RR 19 T 97.6F O2 sat 93% 2L NC Labs: WBC 18.9 PT 16.1 INR 1.6 APTT 34.5, Na 130 K 7.7 HCO3 19 BUN 102 Cr 3.7 Ca 8.2 Mg 3.2 T Bili 1.6 AST 124 ALT 47 ALP 483 Ammonia 178 Procal 4.5 TSH 8.58 UA Leukocyte esterase + WBC 157 Sq Epithelial cells 15 bacteria +3 ABG pH 7.37 pCO2 34 pO2 99 HCO3 20 O2 sat 98% EKG new LBBB HR 88 QRSd [address] negative for acute hemorrhage, mass effect or midline shift Head/Neck CTA Parenchymal disease in RUL, no significant arterial stenoses, no cerebral large vessel arterial occlusions or thrombus Treatment: LR 1.7 L, sodium bicarbonate 50meq, insuling regular 10, calcium chloride 10ml, Dextrose 50 ml, albuterol 10mg, dextrose 50ml, Calcium chloride 10ml, sodium bicarbonate 50ml, sodium polystyrene sulfonate 15g, LR 1 L, zosyn 4.5 g, CaCl 10ml, lactulose 10g, sodium bicarbonate 50 meq, dextrose 50ml, insulin regular 6 units, sodium polystyrene sulfonate 15g Consults and why: tele neuro for c/f stroke, case investigator Dr. Mccauley for HDS Patient is known to the interviewer who admitted her in January with a very similar presentation, however this time her mentation is much worse. AOx0 GCS 11 (E 4 S 3 M 4). Her was at bedside to assist with interview but he had little to no information. Most of history was gathered per chart review. From what can be gathered, she was returning to her normal baseline at the facility, however, the day prior she felt nauseas and she stopped eating and drinking yesterday. She was found to be repeating herself and yelling at the facility. Patient in the same state currently, with her eyes wide open, non blinking, and repeatedly yelling or repeating the questions asked to her. At times she seems to acknowledge her , however she does not respond to commands. 03/02/2025 Patient examined at bedside today. Patient had dialysis last night, was found to have GPC 1 out of 2 bottles and was started on vancomycin and ceftriaxone, kidney function has improved. Patient had 2 bowel movements overnight as well. Patient's morning labs showed creatinine of 3.2, BUN of 71, potassium 52, white count 21, urine output 525 cc T. bili 1.7, phosphorus 6.1, magnesium 2.9, AST 113, ALT 45. Patient remains to be more altered than yesterday. Family present at bedside, says that she has never seen the patient like this and has been feeling very 6 for the past couple months after she had infected with Giardia a couple months ago, however she is unsure if she has got treatment for it. 03/03/2025 Pt examined at bedside today. Pt's GCS appears to be 13, however, eyes do remain closed and withdraws from pain, but can follow commands. Her sodium is 141 today, potassium 3.4, phosphorus 1.4, white count 9.7, hemoglobin 12.9, creatinine 0.7, she was found to have gram-positive cocci 1 out of 2 bottles, could be contaminant, however will repeat blood cultures. pH on ABG was 7.52 pCO2 of 30, likely indicating acute respiratory acidosis that is not appropriately compensated. Patient will need MRI due to concern for infection or embolic CVA. Pt's blood sugar continues to drop, however, will adjust Degludec to 18 units and continue with SSI as pt's gap as closed and DKA resolved. She will will be downgraded to telemetry later today. No longer on pressors as of last night. 03/04/2025 Patient examined bedside today she is AO x 3 GCS 15 she was started on low-dose levo 0.6 last night and breathing treatment. Overnight she had good stool output and 1500 mL per the rectal tube and 120 mL of urine output today during dialysis she started on 0.05 levo vital signs for today blood pressure 108/86 heart rate 103 respirations 23 temperature 97.6 ?F and she is satting at 95% oxygenation on 3 L nasal cannula. We believe her hepatic encephalopathy has resolved she is AO x 3 GCS of 15. We are starting her on midodrine 10 p.o. every 6 hours. We are repeating the EKG to reevaluate the left bundle branch block. Discontinuing the octreotide drip. Her lactic acid continues to be elevated 2.9 most likely has to do with poor clearance due to her cirrhosis. Stopping zosyn and starting cefazolin IV. Urine cultures returned with no growth. 03/05/25: Downgraded from ICU overnight, off vasopressors. Patient seen and examined at bedside. The patient refers back pain that is chronic, switched home Percocet to Pool. Initial lactate this morning 3.5, repeat lactate 6.1, 6.9, uptrending. ICU team was reconsulted, recommend 500 cc bolus IV fluids and ABG if worsening acidosis. 25g of albumin ordered in addition of 500mL LR. Of note, there was concern for purulent drainage at right subclavian dialysis cath insertion site. The site was examined today and appears dry, clean, intact. T. Bili continue to uptrend, US gallbladder reveals cholelithiasis with gallbladder wall thickening, MRCP and CT abd ordered. Dialysis today, follow up with ABG. Continue to trend lactate. 03/06/25 Today patient was upgraded to the ICU due to refractory hypotension not improving on midodrine and albumin. She is AO x 2 initial examination she was unaware of the year thinking was 1920. She has elevated white count 20.3 right radial ABG showed pH of 7.36 pCO2 of 49 pO2 of 68 bicarb 28 ABG O2 saturation of 95 potassium is 3.3 BUN 30 creatinine 3.5 lactic acid has been around 3.6 has trended up to 4.5. T. bili is 2.5. Her platelets are 71. MRCP today showed lobulated malignant neoplasm in the superior portion of the head of the liver radiologist believes it is a malignant apical neoplasm certainly and normally represents hepatic cellular carcinoma. The liver is enlarged moderately since previous MRI. The MRI also show symptomatic moderate ascites with minimal pleural effusions of both lower lungs. There is major abdominal distention of entire stomach with huge air-fluid level most likely related to major ileus. The gallbladder is well-seen and normal I saw the biliary ducts and pancreatic duct. There is significant atrophy of the right kidney. There is a major compression fracture in the body of L4 and lumbar spine. Patient was upgraded to the ICU given levo 12.8 mL/h bolus of LR 1 L started on Zosyn and vancomycin and discontinuing cefazolin. Left femoral line was placed for IV access. Vasopressin was also ordered. Blood cultures C. difficile with signout trending lactic acid and urinalysis was also sent out. Plan to get CT CAP with contrast once maps above 70. An NG tube was placed. For decompression of the air-fluid levels seen on imaging. On physical exam the right inguinal lesion is stable unchanged there is no purulent or pustulant material noted no fluid expressed it is nonbleeding and appears packed and clean and dry. Exam Vital Signs Temp Pulse Resp BP Pulse Ox O2 Del Method O2 Flow Rate 96.9 F 88 20 59/39 L 96 Nasal Cannula 4 03/06/25 12:00 03/06/25 15:55 03/06/25 15:26 03/06/25 15:55 03/06/25 15:26 03/06/25 12:00 03/06/25 15:26 FiO2 3 03/06/25 04:00 Narrative Exam General: AAOx2, eyes are open, morbidly obese, no distress, open mouth HEENT: Mucous membranes moisture much improved, conjuctiva normal, PERRL, accomodation intact. Cardiovascular: S1, S2, radial pulses +2 bilat, RRR Pulmonary: Difficulty appreciated breath sounds GI: Abdomen distended, bowel sounds present, diffusely ttp, stable inguinal crease lesions Extremities: Anasarca, dorsalis pedis pulses +2 bilaterally. Normal perfusion. Neuro: AAOx2 Skin: Right inguinal fold shows draining ulcer that does not appear to be infected at this time, however it appears to be about 2 cm deep and 0.5 -1.0 com in circumference, multiple areas of purpura throughout body Objective Labs 03/07/25 07:35 03/07/25 12:40 Labs: Laboratory Results - last 24 hr 03/05/25 03/05/25 03/05/25 16:21 17:49 22:16 WBC RBC Hgb Hct MCV MCH MCHC RDW Std Deviation Plt Count Neut % (Auto) Lymph % (Auto) Andrews % (Auto) Eos % (Auto) Baso % (Auto) Neut # (Auto) Lymph # (Auto) Andrews # (Auto) Eos # (Auto) Baso # (Auto) Immature Gran # (Auto) Absolute Nucleated RBC Immature Gran % Nucleated RBC % PT INR APTT Puncture Site Right Radial ABG pH 7.40 ABG pCO2 44 ABG pO2 69 L ABG HCO3 27 H ABG O2 Saturation 96 ABG Base Excess 2 VBG pH VBG pCO2 VBG pO2 VBG O2 Sat (To) VBG Base Excess Oxygen Liter Flow 2 Sodium Potassium Chloride Carbon Dioxide Anion Gap BUN Creatinine Estim Creat Clear Calc eGFR BUN/Creatinine Ratio Glucose Calculated Osmolality Lactic Acid 3.2 H 3.7 H Calcium Corrected Calcium Phosphorus Magnesium Total Bilirubin AST ALT Alkaline Phosphatase Total Protein Albumin Globulin Albumin/Globulin Ratio Ur Random Sodium Ur Random Potassium Ur Random Chloride Misc Test Result 03/06/25 03/06/25 03/06/25 01:08 02:54 06:20 WBC 16.2 H RBC 3.54 L Hgb 10.9 L Hct 35.7 L MCV 101 H MCH 30.8 MCHC 30.5 L RDW Std Deviation 67.9 H Plt Count 58 L D Neut % (Auto) 73 Lymph % (Auto) 18 Andrews % (Auto) 7 Eos % (Auto) 1 Baso % (Auto) 0 Neut # (Auto) 11.8 H Lymph # (Auto) 2.8 Andrews # (Auto) 1.1 H Eos # (Auto) 0.2 Baso # (Auto) 0.0 Immature Gran # (Auto) 0.18 H Absolute Nucleated RBC 0.03 H Immature Gran % 1 H Nucleated RBC % 0 PT 17.0 H INR 1.7 H APTT 40.2 H Puncture Site ABG pH ABG pCO2 ABG pO2 ABG HCO3 ABG O2 Saturation ABG Base Excess VBG pH VBG pCO2 VBG pO2 VBG O2 Sat (To) VBG Base Excess Oxygen Liter Flow Sodium 141 Potassium 3.0 L D Chloride 99 Carbon Dioxide 27.3 Anion Gap 15 BUN 22 Creatinine 2.6 H Estim Creat Clear Calc 28.0 L eGFR 19 L BUN/Creatinine Ratio 8 L Glucose 80 Calculated Osmolality 283 Lactic Acid 3.4 H 3.6 H Calcium 9.0 Corrected Calcium 9.4 Phosphorus 3.3 Magnesium 2.0 Total Bilirubin 2.7 H AST 91 H ALT 26 Alkaline Phosphatase 266 H D Total Protein 5.7 Albumin 3.5 Globulin 2.2 L Albumin/Globulin Ratio 1.6 Ur Random Sodium < 15.0 L Ur Random Potassium < 10 L Ur Random Chloride < 20.0 L Misc Test Result Platelets confirmed 03/06/25 14:49 WBC RBC Hgb Hct MCV MCH MCHC RDW Std Deviation Plt Count Neut % (Auto) Lymph % (Auto) Andrews % (Auto) Eos % (Auto) Baso % (Auto) Neut # (Auto) Lymph # (Auto) Andrews # (Auto) Eos # (Auto) Baso # (Auto) Immature Gran # (Auto) Absolute Nucleated RBC Immature Gran % Nucleated RBC % PT INR APTT Puncture Site ABG pH ABG pCO2 ABG pO2 ABG HCO3 ABG O2 Saturation ABG Base Excess VBG pH 7.38 VBG pCO2 44 VBG pO2 76 H VBG O2 Sat (To) 96 VBG Base Excess 1 Oxygen Liter Flow Sodium 140 Potassium 3.3 L Chloride 99 Carbon Dioxide 24.1 Anion Gap 17 H BUN 30 H Creatinine 3.5 H D Estim Creat Clear Calc 20.7 L eGFR 14 L* BUN/Creatinine Ratio 9 L Glucose 118 H Calculated Osmolality 286 Lactic Acid 4.5 H* Calcium 8.7 Corrected Calcium 9.4 Phosphorus Magnesium Total Bilirubin 2.5 H AST 132 H ALT 24 Alkaline Phosphatase 291 H D Total Protein 5.4 L Albumin 3.1 L Globulin 2.3 Albumin/Globulin Ratio 1.3 Ur Random Sodium Ur Random Potassium Ur Random Chloride Misc Test Result ABG Interpretation ABG results: 03/01/25 03/01/25 03/02/25 09:05 16:01 04:53 ABG pH 7.37 7.33 L 7.44 D ABG pCO2 34 34 35 ABG pO2 99 99 82 L ABG HCO3 20 18 L 24 ABG O2 Saturation 99 H 98 97 ABG Base Excess -5 L -7 L 0 VBG pH VBG pCO2 VBG pO2 VBG Base Excess 03/02/25 03/03/25 03/04/25 08:43 04:28 05:02 ABG pH 7.48 H 7.40 7.42 ABG pCO2 29 L 40 D 42 ABG pO2 130 H D 75 L D 54 L* D ABG HCO3 22 25 27 H ABG O2 Saturation 100 H 96 90 L ABG Base Excess -1 0 2 VBG pH VBG pCO2 VBG pO2 VBG Base Excess 03/05/25 03/06/25 16:21 14:49 ABG pH 7.40 ABG pCO2 44 ABG pO2 69 L ABG HCO3 27 H ABG O2 Saturation 96 ABG Base Excess 2 VBG pH 7.38 VBG pCO2 44 VBG pO2 76 H VBG Base Excess 1 Quality Measures Quality Measures VTE prophylaxis Advance care planning discussed with:: patient and spouse Assessment & Plan Assessment Current Active Medications: Generic Name Dose Route Start Last Admin Trade Name Freq PRN Reason Stop Dose Admin Acetaminophen 650 mg 03/01/25 14:01 03/05/25 08:43 Acetaminophen 325 Mg Tablet NG 03/31/25 14:00 650 mg Q6H PRN Administration Fever >100.4 or pain 1-3 Hydrocodone Bitart/Acetaminophen 1 tab 03/05/25 17:30 03/06/25 04:31 Hydrocodone/Apap 10/325 Tab PO 03/10/25 17:29 1 tab Q6HR PRN Administration PAIN SCALE 7-10 (Severe Albuterol/Ipratropium 3 ml 03/04/25 07:03 03/06/25 15:26 Albuterol/Ipratropium (Duoneb) Rt Rosario 3 Ml Nebu INH 03/31/25 14:59 3 ml Q4HRRT PRN Administration wheeze Artificial Tears 0 drop 03/02/25 08:48 03/05/25 10:06 Artificial Tears 225 Drop/15 Ml Btl BOTH EYES 04/01/25 08:47 1 drops PRN PRN Administration TO KEEP EYES MOIST Gabapentin 200 mg 03/03/25 16:00 03/06/25 14:08 Gabapentin 100 Mg Capsule NG 04/02/25 15:59 200 mg TID RAMON Administration Heparin Sodium (Porcine) 5,000 unit 03/01/25 21:00 03/06/25 08:07 Heparin Sod Inj 5000 Unit/Ml Vial SC 03/15/25 20:59 5,000 unit Q12HR RAMON Administration Heparin Sodium (Porcine) 3,100 unit 03/01/25 18:45 03/05/25 18:03 Heparin Sod Inj 1000 Unit/Ml Vial 10 Ml INDWELLCAT 03/15/25 18:44 3,100 unit X1 PRN Administration DIALYSIS Cefazolin Sodium/Dextrose 1 gm in 50 mls @ 50 mls/hr 03/04/25 11:30 03/06/25 08:06 Ancef Ivpb IV 03/11/25 11:29 50 mls/hr Q12HR RAMON Administration Albumin Human 25 gm in 100 mls @ 0 mls/hr 03/05/25 17:05 03/05/25 17:10 Albuminex 25% Ivpb IV 100 mls/hr Q30M PRN Administration DIALYSIS UD Albumin Human 25 gm in 100 mls @ 100 mls/hr 03/06/25 14:47 03/06/25 14:58 Albuminex 25% Ivpb IV 03/09/25 14:46 100 mls/hr QDAY RAMON Administration Norepinephrine/Dextrose 8 mg in 250 mls @ 12.328 mls/hr 03/06/25 15:58 03/06/25 16:11 Levophed In D5w 8mg/250ml IV 04/05/25 15:57 0.09 mcg/kg/min .[id number] PRN 22.19 mls/hr PER PROTOCOL Titration Protocol 0.05 MCG/KG/MIN Lactulose 40 gm 03/06/25 14:00 03/06/25 14:08 Lactulose Syrup 20 Gm/30 Ml Udc PO 04/02/25 13:59 40 gm On Hold: 03/06/25 16:06 TID RAMON Administration Protocol Levothyroxine Sodium 125 mcg/ 150 mcg 03/05/25 06:00 03/06/25 05:23 Levothyroxine Sodium 25 mcg PO 04/04/25 05:59 150 mcg ACBR RAMON Administration Lidocaine 1 patch 03/02/25 11:57 03/04/25 20:24 Lidocaine 5% 1 Patch TOP 04/01/25 11:56 1 patch UD PRN Administration localized pain Miconazole Nitrate 0 gm 03/02/25 12:00 03/06/25 08:23 Miconazole Nitrate Cr 2% 15 Gm Tube TOP 04/01/25 11:59 1 applicatio BID RAMON Administration Midodrine 10 mg 03/06/25 10:00 03/06/25 14:51 Midodrine 5 Mg Tablet PO 04/03/25 09:59 10 mg Q6H RAMON Administration Ondansetron HCl 4 mg 03/01/25 14:01 Ondansetron Inj 2 Mg/Ml Inj 2 Ml IVP 03/31/25 14:00 Q6H PRN NAUSEA OR VOMITING Protocol Pharmacy Consult 1 each 03/04/25 11:09 Pharmacy Renal Dose Adjustment 1 Ea XX 04/03/25 11:08 PRN PRN CONSULT Rifaximin 550 mg 03/02/25 11:00 03/06/25 08:06 Rifaximin 550 Mg Tablet NG 03/09/25 10:59 550 mg BID RAMON Administration Sodium Chloride 3 ml 03/01/25 11:02 Sodium Chloride Rt Rosario 0.9% 3 Ml Nebu INH 03/31/25 11:01 PRN PRN SOLN Plan 70-year-old female with a history of chronic kidney disease (CKD), cirrhosis, hypothyroidism, recent giardia infection, and chronic back pain (oxy q4), was recently admitted with severe hyperkalemia (K 7.1), KADI, and generalized weakness, who presented from [facility] due to encephalopathy. Bounced back to ICU due to shock/refractory hypotension requiring pressor support. Evaluating patient for worsening liver function and unknown source of infection. 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 diff, Lactic acid CV #Shock Ddx distributive most likely in the setting of live cirrhosis, renal failure, possible hidden infection. 03/02/2025 ECHO LVEF 50-55%. Mild mitral valve regurgitation, mild tricuspid regurgitation EKG HR 78 QTc 452 ME 200 QRSd 122 She is upgraded because she was hypotensive and refractory to albumin and max doses of midodrine. inguinal crease wound is stable, no pustulent material noted. Plan: -Levofed -Vasopressin -CTCAP w/con for source once MAP >70 -Repeat blood cx repeat urinalysis, C diff -Abx for c/f hidden infection PULM #Hx of COPD No wheezes heard on exam, patient saturating appropriately Tx Duonebs Q4HRRT GI #Hx of MYERS, confirmed with biopsy Patient has elevated ammonia levels. ascitic fluid in abdomen. 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 Malignant apical neoplasm is certainly the cause, normally certainly represent hepatic cell carcinoma. The liver has enlarged moderately since previous MRI. Since the prior MRI the patient is well moderate ascites. #Major ileus CT C MRCP shows major abdominal distention entire stomach with huge air-fluid level. Patient still passing stool and gas Plan: NGT to LIS n.p.o. #Transaminitis - stable/persistent ddx MYERS Plan: -CTM LFTs #Hyperbilirubinemia - worsening T Bili 1.2 --> 2.8 Most likely in the setting of worsening liver function with lobulated large malignant neoplasm seen on MRCP. Normal gallbladder. Recent abd US showed no stones. No fever, no jaundice seen. Plan: -CTM for abdominal pain when patient is more oriented. RENAL #KADI on CKD stage IIIB DDx most likely 2/2 hypertension, patients A1C 5 BUN 102 Cr 3.7 Plan: -Nephro consulted (Dr. Mccauley) -HDS #Hypokalemia K 3.0 most likely secondary to renal failure. Plan: -Replete as necessary. #Hyperkalemia - Resolved Ddx KADI on CKD Plan: -CTM with repeat renal panels -Kayexelate -Insulin -Calcium gluconate No active problems ENDO #Hx of Hypothyroidism TSH 8.58, actually much improved from most recent admission. Plan: -re-evaluate thyroid functioning in 6 weeks outpatient following thyroid medication changes HEME #Leukocytosis DDx most likely reactive to stress, could be 2/2 infection procal elevated, UA dirty Plan: -Repeat UA -Trend WBC -Zosyn and vanc #Lactic Acidosis Ongoing lactic acidosis. Most likely due to poor clearance in the setting of liver failure/malignancy. Plan -CTM -IVF when patient is no longer volume overloaded. ID #Unknown source of infection? Patient lactic acid is persistent. Inguinal wound source appears unlikely due to no signs of infection. Possibly due to hidden abscess? PLan: -CTCAP with IV contrast when MAP >70 #ICU Health maintenance Mechanical ventilation: None Sedation: None Diet: NPO DVT prophylaxis: heparin subq GI prophylaxis: None Falcon: yes with rectal tube Lines: PIV, fem line, dialysis catheter IJ Antibiotics: Vanc zosyn CODE STATUS: Full Patient examined and plan discussed with attending Dr. Myrick and supervising resident Dr. Mejia. Note Written by Andrey Bhatt PGY-1
[2025-03-06] MEDS: RINGERS LACTATED 1000 ML 1,000 ML 999 ML IV (16:41)
--- NOTE | 2025-03-06 16:42 | EKG_ITS ---
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
[2025-03-06 16:49] LABS: Base Excess 1 (-3-3); HCO3 28 mEq/L (20-26); O2 Saturation 95 % (91-98); PCO2 49 mmHg (32.0-48.0); PO2 68 mmHg (83-108); pH, Arterial 7.36 (7.35-7.45)
[2025-03-06 16:50] LABS: Allen Test Performed/OK; Inspired O2, VO2 Liters 4 L/min; Puncture Site Right Radial
--- NOTE | 2025-03-06 17:37 | PD.RESPROC ---
PROCEDURES: Procedure Date / Time 03/06/25 1737 Central Line Placement Left Femoral: Indication(s): shock and poor, or inadequate peripheral venous access Informed consent obtained: from patient Time out done, and the following verified: correct patient, side and site, procedure, patient position and implants and/or equipment Patient placed on monitor/pulse ox: Yes Hand Hygiene: soap & water and alcohol-based hand rub Max Sterile Barrier Techniques used: cap, mask, sterile gown, sterile gloves and sterile full body drape Central line prep: Povidone-Iodine 1%, Chlorhexidine scrub and sterile drapes applied Local anesthesia used: lidocaine 1% Amount of anesthesia used (mL): 10 Ultrasound used for placement: Yes Sterile Technique if Ultrasound used, including sterile gel: yes Central line lumen inserted: triple Post procedure: sutured in place, good blood return, all ports aspirated, flushed, capped and sterile dressing applied Post procedure x-ray: other Patient tolerated procedure: well and no complications EBL(ml): 5 Complications: none
[2025-03-06] MEDS: PIPER/TAZO 3.375 GM PREMIX 3.375 GM/50 ML BAG IV ×2 (17:45→21:32)
[2025-03-06 17:58] LABS: Reflex Lactate? Y
[2025-03-06 17:59] LABS: Basophils # (Auto) 0.1 Thou/mm3 (0.0-0.2); Basophils % (Auto) 0 % (0-2.5); Eosinophils # (Auto) 0.2 Thou/mm3 (0.0-0.5); Eosinophils % (Auto) 1 % (0-10); Hematocrit 36.3 % (36.0-46.0); Hemoglobin 10.8 g/dL (12.0-16.0); Immature Granulocytes Auto 0.36 Thou/mm3 (0.00-0.00); Lymphocytes # (Auto) 3.4 Thou/mm3 (1.0-4.8); Lymphocytes % (Auto) 17 % (10-50); Mean Corpuscular HGB Conc 29.8 g/dl (31.0-37.0); Mean Corpuscular Hemoglobin 30.3 pg (25.0-35.0); Mean Corpuscular Volume 102 fL (80-100); Monocytes # (Auto) 1.7 Thou/mm3 (0.0-0.8); Monocytes % (Auto) 8 % (0-12); Neutrophils # (Auto) 14.5 Thou/mm3 (1.8-7.7); Neutrophils % (Auto) 72 % (37-80); Nucleated Red Blood Cell # 0.04 Thou/mm3 (0.00-0.00); Nucleated Red Blood Cell % 0 /100 WBC (0); RDW Standard Deviation 69.8 fL (36.4-46.3); Red Blood Count 3.57 Miln/mm3 (4.00-5.20); White Blood Count 20.3 Thou/mm3 (3.6-11.0)
[2025-03-06 18:07] LABS: Platelet Count 71 Thou/mm3 (140-440)
[2025-03-06 18:08] LABS: Slide Review Platelets confirmed
--- NOTE | 2025-03-06 18:15 | XR_ITS ---
EXAMINATION: AP chest single view TECHNIQUE: Portable AP chest single view Date and time: March 06, 2025, 1829 hours INDICATIONS: Post orogastric tube placement. FINDINGS: Orogastric tube in the stomach satisfactory position Air distended colon No free air IMPRESSION: Orogastric tube in the stomach satisfactory position
[2025-03-06 18:24] LABS: Lactate (Lactic Acid) 4.0 mMol/L (0.4-2.0)
[2025-03-06 18:25] LABS: Alanine Aminotransferase 19 U/L (10-49); Albumin, Serum 3.7 gm/dL (3.4-4.8); Albumin/Globulin Ratio 1.7 (1.2-2.2); Alkaline Phosphatase 283 U/L (46-116); Anion Gap 15 (7-16); Aspartate Amino Transferase 145 U/L (0-34); BUN/Creatinine Ratio 9 Ratio (12-20); Bilirubin,Total 2.8 mg/dL (0.3-1.2); Blood Urea Nitrogen 28 mg/dL (9-23); Calcium 9.2 mg/dL (8.3-10.6); Calcium (Corrected) 9.4 mg/dL (8.5-10.1); Carbon Dioxide 26.6 mMol/L (20.0-31.0); Chloride 98 mMol/L (98-107); Creatinine (Component) 3.2 mg/dL (0.6-1.3); Estimated Creatinine Clearance 22.7 mL/min (>60); Globulin 2.2 gm/dL (2.3-3.5); Glucose 102 mg/dL (74-106); Magnesium 2.3 mg/dL (1.6-2.6); Osmolality,Calculated 284 (275-295); Phosphorous 3.9 mg/dL (2.4-5.1); Potassium 3.0 mMol/L (3.4-5.1); Sodium 140 mMol/L (136-145); Total Protein 5.9 gm/dL (5.7-8.2); eGFR 15 See Note
--- NOTE | 2025-03-06 19:09 | ESPR_ITS ---
RE: KOMAL GARCIA : 1955 DATE OF SERVICE: 03/06/2025 HISTORY OF PRESENT ILLNESS: Briefly, she is a 70-year-old woman with past medical history significant for hypertension, fatty liver, hypothyroidism, obesity, stage IV CKD, possibly stage V CKD, most likely ESRD now with baseline serum creatinine of 1.2-2.8 mg/dL who presented to the hospital on 03/01/2025, with altered level of consciousness and was found with elevated ammonia level and severe lactic acidosis. Patient was dialyzed while she was in ICU and was transferred out of ICU when she became more coherent. Yesterday, patient's lactic acid continued to creep up and she was dialyzed immediately. Patient also has Staphylococcus hominis bacteremia. Yesterday's dialysis we had a UF of about 2 liters. Patient seems weaker today, but still awake and alert, daughter and by the bedside. CURRENT MEDICATIONS: Albumin, albuterol ipratropium, lactated Ringer solution 1 liter x1, gabapentin 200 mg p.o. t.i.d., heparin 5000 units subcutaneously q. 12, lactulose 40 grams p.o. t.i.d., [place], miconazole, midodrine 10 mg p.o. q. 6, ondansetron, rifaximin 550 mg b.i.d., vancomycin 2 grams x1 on 03/06/2025, Zosyn 3.375 grams IV b.i.d. PHYSICAL EXAMINATION: VITAL SIGNS: Blood pressure of 93/36, heart rate of 56. HEENT: Anicteric sclerae. Normocephalic. NECK: Supple. No JVD. CHEST AND LUNGS: Symmetric expansion. Clear breath sounds. HEART: Without murmur. ABDOMEN: Soft, nontender. EXTREMITIES: No edema. LABORATORY DATA: Hemoglobin 10.9, WBC 16,200, platelet count 58,000. Sodium 140, potassium 3.6, chloride 99, CO2 24.1, BUN 30, creatinine 3.5, glucose 118, calcium 286, lactic acid 4.5. Urine sodium less than 15. ASSESSMENT: 1. Oliguric acute kidney injury secondary to acute tubular necrosis following hemodynamic instability, hypoperfusion, hypotension on advanced chronic kidney disease, may possibly have type 1 hepatorenal syndrome as spot urine sodium is < 15 2. Lactic acidosis secondary to hypoperfusion and combination of kidney and liver failure. 3. Obesity. 4. Staphylococcus hominis septicemia. 5. Liver failure. PLAN: I had a short discussion with her with regards to her current situation. At this point, patient seems to have grim prognosis. I suspect that she already has type 1 hepatorenal syndrome and at the same time Staphylococcus hominis septicemia. We will continue supportive treatment. Dialysis will be scheduled for tomorrow. DT: 18:33:53 TT: 19:08:00 Ref: [id number] - TID: [id number] MTDD
[2025-03-06 20:54] LABS: Reflex Lactate? Y
[2025-03-06 21:12] LABS: Collection Type, Urine Catheter
[2025-03-06] MEDS: BALSAM PERU/CASTOR OIL (Venelex) 60 GM TUBE TOP (21:32)
[2025-03-06 21:34] LABS: Amorphous Crystals,Urine Present (Absent); Bacteria,Urine Rare; Bilirubin,Urine Negative (Negative); Blood,Urine 3+ (Negative); Budding Yeast,Urine Present; Clarity,Urine Turbid (Clear/Hazy); Color,Urine Yellow (Lt Yel-Yel); Culture Indicated,Urine Not Indicated; Glucose, Urine Negative (Negative); Ketones,Urine Trace (Negative); Leukocyte Esterase,Urine Positive (Negative); Nitrite,Urine Negative (Negative); PH,Urine 5.5 (5.0-7.0); Protein,Urine 2+ (Neg - Trace); RBC,Urine 55 /hpf (0-3); Specific Gravity,Urine 1.030 (1.001-1.035); Squamous Epithelial Cell,Urine < 1 /hpf (0-5); Urobilinogen,Urine Negative mg/dL (0.0-1.0); WBC,Urine 4 /hpf (0-5)
[2025-03-06 21:44] LABS: Lactic Acid, 3 HR 2.8 mMol/L (0.4-2.0)
[2025-03-06 22:07] LABS: Albumin, Serum 3.5 gm/dL (3.4-4.8); Anion Gap 13 (7-16); BUN/Creatinine Ratio 8 Ratio (12-20); Blood Urea Nitrogen 27 mg/dL (9-23); Calcium 8.9 mg/dL (8.3-10.6); Calcium (Corrected) 9.3 mg/dL (8.5-10.1); Carbon Dioxide 26.0 mMol/L (20.0-31.0); Chloride 99 mMol/L (98-107); Creatinine (Component) 3.6 mg/dL (0.6-1.3); Estimated Creatinine Clearance 20.2 mL/min (>60); Glucose 109 mg/dL (74-106); Magnesium 2.2 mg/dL (1.6-2.6); Osmolality,Calculated 281 (275-295); Phosphorous 4.8 mg/dL (2.4-5.1); Potassium 3.0 mMol/L (3.4-5.1); Sodium 138 mMol/L (136-145); eGFR 13 See Note
[2025-03-07] VITALS (117 sets, daily range): BP systolic 74–116; BP diastolic 20–74; PULSE 66–92; RESP 12–38; TEMP 36.1–37.1; O2SAT 87–98; BMI 52.0
[2025-03-07] MEDS: Norepinephrine/D5W 8mg/250ml 8 MG/250 ML BAG 17.259 MG IV (00:50)
[2025-03-07] MEDS: MIDODRINE 5 MG TABLET 10 MG PO ×2 (04:38→10:17)
[2025-03-07 05:15] LABS: Base Excess 1 (-3-3); HCO3 27 mEq/L (20-26); Inspired O2, VO2 Liters 4 L/min; Inspired Oxygen, FIO2 21 %; O2 Saturation 94 % (91-98); PCO2 48 mmHg (32.0-48.0); PO2 64 mmHg (83-108); pH, Arterial 7.36 (7.35-7.45)
[2025-03-07 05:19] LABS: Allen Test Performed/OK; Puncture Site Left Radial
[2025-03-07] MEDS: PIPER/TAZO 3.375 GM PREMIX 3.375 GM/50 ML BAG IV ×3 (05:19→22:13)
[2025-03-07] MEDS: GABAPENTIN 100 MG CAPSULE 200 MG NG ×2 (05:19→22:14)
[2025-03-07] MEDS: LEVOTHYROXINE SODIUM 125 MCG, LEVOTHYROXINE SODIUM 25 MCG 150 MCG PO (05:19)
[2025-03-07 06:56] LABS: INR 1.8 (0.9-1.3); Partial Thromboplastin Time 35.9 Seconds (22.0-36.0); Prothrombin Time 18.1 Seconds (9.0-12.2)
[2025-03-07 07:08] LABS: Alanine Aminotransferase 20 U/L (10-49); Albumin, Serum 3.3 gm/dL (3.4-4.8); Albumin/Globulin Ratio 1.5 (1.2-2.2); Alkaline Phosphatase 293 U/L (46-116); Anion Gap 16 (7-16); Aspartate Amino Transferase 176 U/L (0-34); BUN/Creatinine Ratio 9 Ratio (12-20); Bilirubin,Total 3.0 mg/dL (0.3-1.2); Blood Urea Nitrogen 35 mg/dL (9-23); Calcium 9.0 mg/dL (8.3-10.6); Calcium (Corrected) 9.6 mg/dL (8.5-10.1); Carbon Dioxide 27.3 mMol/L (20.0-31.0); Chloride 97 mMol/L (98-107); Creatinine (Component) 3.8 mg/dL (0.6-1.3); Estimated Creatinine Clearance 19.1 mL/min (>60); Globulin 2.2 gm/dL (2.3-3.5); Glucose 79 mg/dL (74-106); Magnesium 2.2 mg/dL (1.6-2.6); Osmolality,Calculated 286 (275-295); Phosphorous 5.1 mg/dL (2.4-5.1); Potassium 3.0 mMol/L (3.4-5.1); Sodium 140 mMol/L (136-145); Total Protein 5.5 gm/dL (5.7-8.2); Vancomycin,Random 11.9 mcg/mL; eGFR 12 See Note
--- NOTE | 2025-03-07 07:10 | ESPR_ITS ---
<Statement entered by Dominick Mejia MD - 03/07/25 18:49> I have reviewed the note and agree with the resident's assessment & plan with exceptions as below. I have personally reviewed labs, imaging, home meds/prior records, examined the patient, formulated and discussed management plan with the IM team. Pt examined at bedside today. No acute overnight events. Pt continues to be on levophed, will get HD today with UF. Nephrology on consult, appreciate recs, there was some discussion of some possible use of Tablo due to concerns for fluid shifts and Hepatorenal syndrome. Persistent shock related to concern for distributive of concern related to decompensated liver disease. Pt has concerning mass may represent liver cancer, however will get biopsy tomorrow with IR. Lactic acidosis that is persistent can be related possible malignancy, however there was no necrotic signs seen on CT CAP w/contrast. C diff negative. AFP sent out, currently negative. Pt to have Midodrine PRN with holding parameters to wean off levophed. Pt's recent albumin challenge for HRS was done a couple days ago, however pt did not improve, making diagnosis more likely, however this is a diagnosis of exclusion. Will transition to Lactulose 10 gm TID. Repeat hematology, chemistry, CXR and ABG in AM. Pt continuing to be on oxygen at this time. Dominick Mejia, PGY-2 Internal Medicine Documentation for date of: 03/07/25 Subjective Subjective Interval history: 70-year-old female with a history of chronic kidney disease (CKD), cirrhosis, hypothyroidism, recent giardia infection, and chronic back pain (oxy q4), was recently admitted with severe hyperkalemia (K 7.1), KADI, and generalized weakness, who [facility] [place] due to encephalopathy. ED Course Summary Vitals: BP 87/60 HR 82 RR 19 T 97.6F O2 sat 93% 2L NC Labs: WBC 18.9 PT 16.1 INR 1.6 APTT 34.5, Na 130 K 7.7 HCO3 19 BUN 102 Cr 3.7 Ca 8.2 Mg 3.2 T Bili 1.6 AST 124 ALT 47 ALP 483 Ammonia 178 Procal 4.5 TSH 8.58 UA Leukocyte esterase + WBC 157 Sq Epithelial cells 15 bacteria +3 ABG pH 7.37 pCO2 34 pO2 99 HCO3 20 O2 sat 98% EKG new LBBB HR 88 QRSd [address] negative for acute hemorrhage, mass effect or midline shift Head/Neck CTA Parenchymal disease in RUL, no significant arterial stenoses, no cerebral large vessel arterial occlusions or thrombus Treatment: LR 1.7 L, sodium bicarbonate 50meq, insuling regular 10, calcium chloride 10ml, Dextrose 50 ml, albuterol 10mg, dextrose 50ml, Calcium chloride 10ml, sodium bicarbonate 50ml, sodium polystyrene sulfonate 15g, LR 1 L, zosyn 4.5 g, CaCl 10ml, lactulose 10g, sodium bicarbonate 50 meq, dextrose 50ml, insulin regular 6 units, sodium polystyrene sulfonate 15g Consults and why: tele neuro for c/f stroke, boat officer Dr. Mccauley for HDS Patient is known to the interviewer who admitted her in January with a very similar presentation, however this time her mentation is much worse. AOx0 GCS 11 (E 4 S 3 M 4). Her was at bedside to assist with interview but he had little to no information. Most of history was gathered per chart review. From what can be gathered, she was returning to her normal baseline at the facility, however, the day prior she felt nauseas and she stopped eating and drinking yesterday. She was found to be repeating herself and yelling at the facility. Patient in the same state currently, with her eyes wide open, non blinking, and repeatedly yelling or repeating the questions asked to her. At times she seems to acknowledge her , however she does not respond to commands. 03/02/2025 Patient examined at bedside today. Patient had dialysis last night, was found to have GPC 1 out of 2 bottles and was started on vancomycin and ceftriaxone, kidney function has improved. Patient had 2 bowel movements overnight as well. Patient's morning labs showed creatinine of 3.2, BUN of 71, potassium 52, white count 21, urine output 525 cc T. bili 1.7, phosphorus 6.1, magnesium 2.9, AST 113, ALT 45. Patient remains to be more altered than yesterday. Family present at bedside, says that she has never seen the patient like this and has been feeling very 6 for the past couple months after she had infected with Giardia a couple months ago, however she is unsure if she has got treatment for it. 03/03/2025 Pt examined at bedside today. Pt's GCS appears to be 13, however, eyes do remain closed and withdraws from pain, but can follow commands. Her sodium is 141 today, potassium 3.4, phosphorus 1.4, white count 9.7, hemoglobin 12.9, creatinine 0.7, she was found to have gram-positive cocci 1 out of 2 bottles, could be contaminant, however will repeat blood cultures. pH on ABG was 7.52 pCO2 of 30, likely indicating acute respiratory acidosis that is not appropriately compensated. Patient will need MRI due to concern for infection or embolic CVA. Pt's blood sugar continues to drop, however, will adjust Degludec to 18 units and continue with SSI as pt's gap as closed and DKA resolved. She will will be downgraded to telemetry later today. No longer on pressors as of last night. 03/04/2025 Patient examined bedside today she is AO x 3 GCS 15 she was started on low-dose levo 0.6 last night and breathing treatment. Overnight she had good stool output and 1500 mL per the rectal tube and 120 mL of urine output today during dialysis she started on 0.05 levo vital signs for today blood pressure 108/86 heart rate 103 respirations 23 temperature 97.6 ?F and she is satting at 95% oxygenation on 3 L nasal cannula. We believe her hepatic encephalopathy has resolved she is AO x 3 GCS of 15. We are starting her on midodrine 10 p.o. every 6 hours. We are repeating the EKG to reevaluate the left bundle branch block. Discontinuing the octreotide drip. Her lactic acid continues to be elevated 2.9 most likely has to do with poor clearance due to her cirrhosis. Stopping zosyn and starting cefazolin IV. Urine cultures returned with no growth. 03/05/25: Downgraded from ICU overnight, off vasopressors. Patient seen and examined at bedside. The patient refers back pain that is chronic, switched home Percocet to [place]. Initial lactate this morning 3.5, repeat lactate 6.1, 6.9, uptrending. ICU team was reconsulted, recommend 500 cc bolus IV fluids and ABG if worsening acidosis. 25g of albumin ordered in addition of 500mL LR. Of note, there was concern for purulent drainage at right subclavian dialysis cath insertion site. The site was examined today and appears dry, clean, intact. T. Bili continue to uptrend, US gallbladder reveals cholelithiasis with gallbladder wall thickening, MRCP and CT abd ordered. Dialysis today, follow up with ABG. Continue to trend lactate. 03/06/25 Today patient was upgraded to the ICU due to refractory hypotension not improving on midodrine and albumin. She is AO x 2 initial examination she was unaware of the year thinking was 1920. She has elevated white count 20.3 right radial ABG showed pH of 7.36 pCO2 of 49 pO2 of 68 bicarb 28 ABG O2 saturation of 95 potassium is 3.3 BUN 30 creatinine 3.5 lactic acid has been around 3.6 has trended up to 4.5. T. bili is 2.5. Her platelets are 71. MRCP today showed lobulated malignant neoplasm in the superior portion of the head of the liver radiologist believes it is a malignant apical neoplasm certainly and normally represents hepatic cellular carcinoma. The liver is enlarged moderately since previous MRI. The MRI also show symptomatic moderate ascites with minimal pleural effusions of both lower lungs. There is major abdominal distention of entire stomach with huge air-fluid level most likely related to major ileus. The gallbladder is well-seen and normal I saw the biliary ducts and pancreatic duct. There is significant atrophy of the right kidney. There is a major compression fracture in the body of L4 and lumbar spine. Patient was upgraded to the ICU given levo 12.8 mL/h bolus of LR 1 L started on Zosyn and vancomycin and discontinuing cefazolin. Left femoral line was placed for IV access. Vasopressin was also ordered. Blood cultures C. difficile with signout trending lactic acid and urinalysis was also sent out. Plan to get CT CAP with contrast once maps above 70. An NG tube was placed. For decompression of the air-fluid levels seen on imaging. On physical exam the right inguinal lesion is stable unchanged there is no purulent or pustulant material noted no fluid expressed it is nonbleeding and appears packed and clean and dry. 03/07/2025 Today no overnight events. CT CAP was taken. patient started on dialysis with plan for removal of [address] Mccauley spoke to the night resident who said that they believe the patient has type I hepatorenal syndrome. Today patient has 2 peripheral IVs dialysis in the right internal jugular central line left femoral on pressor support levo 0.09, NG tube in and rectal tube she had bowel movements around 400 mL over 24 hours and urine 20 cc Vitals blood pressure 98/48 heart rate 77 respiration 18 oxygen saturation 96% on 4 L nasal cannula and she is afebrile Today patient is AO x 3 she reports feeling well and she has not any pain her pitting edema is worsening from +2 to +3. CT CAP that was done shows atelectasis versus pneumonia at the lung base mild heart failure and small bilateral bilateral pleural effusions also showed cirrhosis multiple liver lesions largest being mid to posterior the right lobe of the liver liver measuring at least 9 cm, there are esophageal varices, portal systematic portosystemic collateral vessels medial to the spleen, prominent splenomegaly she has moderate ascites anasarca diffuse thickening of the colonic wall. Continuing to give her lactulose for her liver cirrhosis and midodrine 10 for pressor support, continuing Vanc and Zosyn in case there is underlying infection for her. For the malignant neoplasm of the liver we are consulting IR to do a CT-guided biopsy. After discussions there is concern that her lactic acidosis is secondary to her malignancy producing lactate in the setting of decompensated cirrhosis poor perfusion causing also poor clearance. Patient passed swallow screen we will start her on a diet to clear liquid diet. Exam Vital Signs Temp Pulse Resp BP Pulse Ox O2 Del Method O2 Flow Rate 97.3 F 81 18 105/20 L 96 Nasal Cannula 4 03/07/25 00:00 03/07/25 06:56 03/07/25 06:56 03/07/25 04:38 03/07/25 06:56 03/06/25 16:05 03/07/25 06:56 FiO2 3 03/06/25 04:00 Narrative Exam General: AAOx3, eyes are open, morbidly obese, no distress, feels bloated, no pain HEENT: Mucous membranes dry, conjuctiva normal, PERRL, accomodation intact. Cardiovascular: S1, S2, radial pulses +2 bilat, RRR Pulmonary: Difficulty appreciated breath sounds GI: Abdomen distended, bowel sounds present, NTTP, stable inguinal crease lesions Extremities: Anasarca, dorsalis pedis pulses +2 bilaterally. Normal perfusion. +2/3 pedal edema (worsening) Neuro: AAOx3, noj gross focal neurological deficits Skin: Right inguinal fold shows non-draining ulcer that does not appear to be infected at this time, however it appears to be about 2 cm deep and 0.5 -1.0 cm in circumference, multiple areas of purpura throughout right side of abdomen from fall. Objective Labs 03/07/25 07:35 03/07/25 12:40 Labs: Laboratory Results - last 24 hr 03/06/25 03/06/25 03/06/25 14:49 16:00 16:43 WBC RBC Hgb Hct MCV MCH MCHC RDW Std Deviation Plt Count Neut % (Auto) Lymph % (Auto) [place] % (Auto) Eos % (Auto) Baso % (Auto) Neut # (Auto) Lymph # (Auto) [place] # (Auto) Eos # (Auto) Baso # (Auto) Immature Gran # (Auto) Absolute Nucleated RBC Immature Gran % Nucleated RBC % PT INR APTT Puncture Site Right Radial ABG pH 7.36 ABG pCO2 49 H ABG pO2 68 L ABG HCO3 28 H ABG O2 Saturation 95 ABG Base Excess 1 VBG pH 7.38 VBG pCO2 44 VBG pO2 76 H VBG O2 Sat (To) 96 VBG Base Excess 1 Oxygen Liter Flow 4 FiO2 Sodium 140 Potassium 3.3 L Chloride 99 Carbon Dioxide 24.1 Anion Gap 17 H BUN 30 H Creatinine 3.5 H D Estim Creat Clear Calc 20.7 L eGFR 14 L* BUN/Creatinine Ratio 9 L Glucose 118 H Calculated Osmolality 286 Lactic Acid 4.5 H* Calcium 8.7 Corrected Calcium 9.4 Phosphorus Magnesium Total Bilirubin 2.5 H AST 132 H ALT 24 Alkaline Phosphatase 291 H D Total Protein 5.4 L Albumin 3.1 L Globulin 2.3 Albumin/Globulin Ratio 1.3 Ur Collection Type Catheter Urine Color Yellow Urine Clarity Turbid A Urine pH 5.5 Ur Specific [place] 1.030 Urine Protein 2+ A Urine Glucose (UA) Negative Urine Ketones Trace Urine Blood 3+ A Urine Nitrite Negative Urine Bilirubin Negative Urine Urobilinogen (Auto) Negative Ur Leukocyte Esterase Positive Urine RBC 55 H Urine WBC 4 Ur Squamous Epith Cells < 1 Amorphous Crystals Present A Urine Bacteria Rare Urine Yeast (Budding) Present A Ur Culture Indicated? Not Indicated Random Vancomycin Misc Test Result 03/06/25 03/06/25 03/07/25 17:42 21:35 04:38 WBC 20.3 H RBC 3.57 L Hgb 10.8 L Hct 36.3 MCV 102 H MCH 30.3 MCHC 29.8 L RDW Std Deviation 69.8 H Plt Count 71 L D Neut % (Auto) 72 Lymph % (Auto) 17 [place] % (Auto) 8 Eos % (Auto) 1 Baso % (Auto) 0 Neut # (Auto) 14.5 H Lymph # (Auto) 3.4 [place] # (Auto) 1.7 H Eos # (Auto) 0.2 Baso # (Auto) 0.1 Immature Gran # (Auto) 0.36 H Absolute Nucleated RBC 0.04 H Immature Gran % 2 H Nucleated RBC % 0 PT INR APTT Puncture Site Left Radial ABG pH 7.36 ABG pCO2 48 ABG pO2 64 L ABG HCO3 27 H ABG O2 Saturation 94 ABG Base Excess 1 VBG pH VBG pCO2 VBG pO2 VBG O2 Sat (To) VBG Base Excess Oxygen Liter Flow 4 FiO2 21 Sodium 140 138 Potassium 3.0 L 3.0 L Chloride 98 99 Carbon Dioxide 26.6 26.0 Anion Gap 15 13 BUN 28 H 27 H Creatinine 3.2 H 3.6 H Estim Creat Clear Calc 22.7 L 20.2 L eGFR 15 L 13 L* BUN/Creatinine Ratio 9 L 8 L Glucose 102 109 H Calculated Osmolality 284 281 Lactic Acid 4.0 H 2.8 H Calcium 9.2 8.9 Corrected Calcium 9.4 9.3 Phosphorus 3.9 4.8 Magnesium 2.3 2.2 Total Bilirubin 2.8 H AST 145 H ALT 19 Alkaline Phosphatase 283 H Total Protein 5.9 Albumin 3.7 D 3.5 Globulin 2.2 L Albumin/Globulin Ratio 1.7 Ur Collection Type Urine Color Urine Clarity Urine pH Ur Specific [place] Urine Protein Urine Glucose (UA) Urine Ketones Urine Blood Urine Nitrite Urine Bilirubin Urine Urobilinogen (Auto) Ur Leukocyte Esterase Urine RBC Urine WBC Ur Squamous Epith Cells Amorphous Crystals Urine Bacteria Urine Yeast (Budding) Ur Culture Indicated? Random Vancomycin Misc Test Result Platelets confirmed 03/07/25 05:10 WBC RBC Hgb Hct MCV MCH MCHC RDW Std Deviation Plt Count Neut % (Auto) Lymph % (Auto) [place] % (Auto) Eos % (Auto) Baso % (Auto) Neut # (Auto) Lymph # (Auto) [place] # (Auto) Eos # (Auto) Baso # (Auto) Immature Gran # (Auto) Absolute Nucleated RBC Immature Gran % Nucleated RBC % PT 18.1 H INR 1.8 H APTT 35.9 Puncture Site ABG pH ABG pCO2 ABG pO2 ABG HCO3 ABG O2 Saturation ABG Base Excess VBG pH VBG pCO2 VBG pO2 VBG O2 Sat (To) VBG Base Excess Oxygen Liter Flow FiO2 Sodium 140 Potassium 3.0 L Chloride 97 L Carbon Dioxide 27.3 Anion Gap 16 BUN 35 H Creatinine 3.8 H Estim Creat Clear Calc 19.1 L eGFR 12 L* BUN/Creatinine Ratio 9 L Glucose 79 Calculated Osmolality 286 Lactic Acid Calcium 9.0 Corrected Calcium 9.6 Phosphorus 5.1 Magnesium 2.2 Total Bilirubin 3.0 H AST 176 H ALT 20 Alkaline Phosphatase 293 H Total Protein 5.5 L Albumin 3.3 L Globulin 2.2 L Albumin/Globulin Ratio 1.5 Ur Collection Type Urine Color Urine Clarity Urine pH Ur Specific [place] Urine Protein Urine Glucose (UA) Urine Ketones Urine Blood Urine Nitrite Urine Bilirubin Urine Urobilinogen (Auto) Ur Leukocyte Esterase Urine RBC Urine WBC Ur Squamous Epith Cells Amorphous Crystals Urine Bacteria Urine Yeast (Budding) Ur Culture Indicated? Random Vancomycin 11.9 Misc Test Result ABG Interpretation ABG results: 03/01/25 03/01/25 03/02/25 09:05 16:01 04:53 ABG pH 7.37 7.33 L 7.44 D ABG pCO2 34 34 35 ABG pO2 99 99 82 L ABG HCO3 20 18 L 24 ABG O2 Saturation 99 H 98 97 ABG Base Excess -5 L -7 L 0 VBG pH VBG pCO2 VBG pO2 VBG Base Excess 03/02/25 03/03/25 03/04/25 08:43 04:28 05:02 ABG pH 7.48 H 7.40 7.42 ABG pCO2 29 L 40 D 42 ABG pO2 130 H D 75 L D 54 L* D ABG HCO3 22 25 27 H ABG O2 Saturation 100 H 96 90 L ABG Base Excess -1 0 2 VBG pH VBG pCO2 VBG pO2 VBG Base Excess 03/05/25 03/06/25 03/06/25 16:21 14:49 16:43 ABG pH 7.40 7.36 ABG pCO2 44 49 H ABG pO2 69 L 68 L ABG HCO3 27 H 28 H ABG O2 Saturation 96 95 ABG Base Excess 2 1 VBG pH 7.38 VBG pCO2 44 VBG pO2 76 H VBG Base Excess 1 03/07/25 04:38 ABG pH 7.36 ABG pCO2 48 ABG pO2 64 L ABG HCO3 27 H ABG O2 Saturation 94 ABG Base Excess 1 VBG pH VBG pCO2 VBG pO2 VBG Base Excess Quality Measures Quality Measures VTE prophylaxis Advance care planning discussed with:: patient and spouse Assessment & Plan Assessment Current Active Medications: Generic Name Dose Route Start Last Admin Trade Name Freq PRN Reason Stop Dose Admin Acetaminophen 650 mg 03/01/25 14:01 03/05/25 08:43 Acetaminophen 325 Mg Tablet NG 03/31/25 14:00 650 mg Q6H PRN Administration Fever >100.4 or pain 1-3 Hydrocodone Bitart/Acetaminophen 1 tab 03/05/25 17:30 03/06/25 04:31 Hydrocodone/Apap 10/325 Tab PO 03/10/25 17:29 1 tab Q6HR PRN Administration PAIN SCALE 7-10 (Severe Albuterol/Ipratropium 3 ml 03/04/25 07:03 03/06/25 15:26 Albuterol/Ipratropium (Duoneb) Rt Ros[place] 3 Ml Nebu INH 03/31/25 14:59 3 ml Q4HRRT PRN Administration wheeze Artificial Tears 0 drop 03/02/25 08:48 03/05/25 10:06 Artificial Tears 225 Drop/15 Ml Btl BOTH EYES 04/01/25 08:47 1 drops PRN PRN Administration TO KEEP EYES MOIST [place]/Port Tobacco Oil 0 gm 03/06/25 21:00 03/06/25 21:32 [place]/Port Tobacco Oil (Venelex) 60 Gm Tube TOP 04/05/25 20:59 1 applicatio BID RAMON Administration Gabapentin 200 mg 03/03/25 16:00 03/07/25 05:19 Gabapentin 100 Mg Capsule NG 04/02/25 15:59 200 mg TID RAMON Administration Heparin Sodium (Porcine) 5,000 unit 03/01/25 21:00 03/06/25 21:48 Heparin Sod Inj 5000 Unit/Ml Vial SC 03/15/25 20:59 5,000 unit Q12HR RAMON Administration Heparin Sodium (Porcine) 3,100 unit 03/01/25 18:45 03/05/25 18:03 Heparin Sod Inj 1000 Unit/Ml Vial 10 Ml INDWELLCAT 03/15/25 18:44 3,100 unit X1 PRN Administration DIALYSIS Albumin Human 25 gm in 100 mls @ 0 mls/hr 03/05/25 17:05 03/05/25 17:10 Albuminex 25% Ivpb IV 100 mls/hr Q30M PRN Administration DIALYSIS UD Albumin Human 25 gm in 100 mls @ 100 mls/hr 03/06/25 14:47 03/06/25 14:58 Albuminex 25% Ivpb IV 03/09/25 14:46 100 mls/hr QDAY RAMON Administration Norepinephrine/Dextrose 8 mg in 250 mls @ 12.328 mls/hr 03/06/25 15:58 03/07/25 03:00 Levophed In D5w 8mg/250ml IV 04/05/25 15:57 0.07 mcg/kg/min .[id number] PRN 17.259 mls/hr PER PROTOCOL Titration Protocol 0.05 MCG/KG/MIN Piperacillin/Tazobactam/Dextrose 3.375 gm in 50 mls @ 100 mls/hr 03/06/25 16:29 03/07/25 05:19 Zosyn IV 03/13/25 16:28 100 mls/hr Q8HR RAMON Administration Protocol Vancomycin HCl 2,000 mg/ 500 mls @ 250 mls/hr 03/06/25 17:00 Sodium Chloride IV 03/13/25 16:59 X1 RAMON Vasopressin/Sodium Chloride 20 unit in 100 mls @ 9 mls/hr 03/06/25 16:46 Vasostrict/Ns Ivpb IV 04/05/25 16:45 .[id number] PRN PER PROTOCOL Protocol 0.03 UNIT/MIN Lactulose 40 gm 03/06/25 14:00 03/06/25 14:08 Lactulose Syrup 20 Gm/30 Ml Udc PO 04/02/25 13:59 40 gm On Hold: 03/06/25 16:06 TID RAMON Administration Protocol Levothyroxine Sodium 125 mcg/ 150 mcg 03/05/25 06:00 03/07/25 05:19 Levothyroxine Sodium 25 mcg PO 04/04/25 05:59 150 mcg ACBR RAMON Administration Lidocaine 1 patch 03/02/25 11:57 03/04/25 20:24 Lidocaine 5% 1 Patch TOP 04/01/25 11:56 1 patch UD PRN Administration localized pain Miconazole Nitrate 0 gm 03/02/25 12:00 03/06/25 22:00 Miconazole Nitrate Cr 2% 15 Gm Tube TOP 04/01/25 11:59 1 applicatio BID RAMON Administration Midodrine 10 mg 03/06/25 10:00 03/07/25 04:38 Midodrine 5 Mg Tablet PO 04/03/25 09:59 10 mg Q6H RAMON Administration Ondansetron HCl 4 mg 03/01/25 14:01 Ondansetron Inj 2 Mg/Ml Inj 2 Ml IVP 03/31/25 14:00 Q6H PRN NAUSEA OR VOMITING Protocol Pharmacy Consult 1 each 03/04/25 11:09 Pharmacy Renal Dose Adjustment 1 Ea XX 04/03/25 11:08 PRN PRN CONSULT Pharmacy Consult 1 each 03/06/25 16:30 Vancomycin Pharmacy To Dose 1 Each Each IV 04/05/25 16:29 QDAY PRN GI INFECTION Rifaximin 550 mg 03/02/25 11:00 03/06/25 21:49 Rifaximin 550 Mg Tablet NG 03/09/25 10:59 550 mg BID RAMON Administration Sodium Chloride 3 ml 03/01/25 11:02 Sodium Chloride Rt [place] 0.9% 3 Ml Nebu INH 03/31/25 11:01 PRN PRN SOLN Plan 70-year-old female with a history of chronic kidney disease (CKD), cirrhosis, hypothyroidism, recent giardia infection, and chronic back pain (oxy q4), was recently admitted with severe hyperkalemia (K 7.1), KADI, and generalized weakness, who presented from [facility] due to encephalopathy. Bounced back to ICU due to shock/refractory hypotension requiring pressor support. Evaluating patient for worsening liver function and unknown source of infection. 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 diff, Lactic acid RX Resuming lactulose, continuing rifaximin CV #Shock Ddx distributive most likely in the setting of decompensated liver cirrhosis, less likely renal failure, less likely possible hidden infection. 03/02/2025 ECHO LVEF 50-55%. Mild mitral valve regurgitation, mild tricuspid regurgitation EKG HR 78 QTc 452 PA 200 QRSd 122 She is upgraded because she was hypotensive and refractory to albumin and max doses of midodrine. inguinal crease wound is stable, no pustulent material noted, making infection less likely Plan: -Levofed: 0.09 -Vasopressin - on board -CTCAP w/con for source once MAP >70 --> c/f hepatic malignancy -Repeat blood cx repeat urinalysis, C diff -Abx for c/f hidden infection PULM #Hx of COPD? 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 Malignant apical neoplasm is certainly the cause, normally certainly represent hepatic cell carcinoma. The liver has enlarged moderately since previous MRI. Since the prior MRI the patient is well moderate ascites. Dx IR consulted may do CT bx for confirmation, [id number], AFP #Decompensated Liver Cirrhosis #Hx of MYERS, confirmed with biopsy Patient has elevated ammonia levels. ascitic fluid in abdomen. Esophageal varices seen on CT Dx -lactulose 10g NG TID, stop at 3 BMs or 2 L of rectal tube output - Holding 03/06, Resumed 03/07 -Rifaxamin -Octreotide -Hold spiranolactone due to low BPs #Hepatorenal Type 1 Diagnosis of exlcusion, patient did not improve on two days of octreotide, double Cr>2.5 or a decrease in Cr Cl by half over a two week period, with urine output less than 500cc/day. Rx exclude other kidney injruoes, pre-renal, nephrotoxic drugs, obstructive nephropathy, and renal parenchymal disease #Major ileus CT C MRCP shows major abdominal distention entire stomach with huge air-fluid level. Patient still passing stool and gas Plan: NGT to LIS n.p.o. #Transaminitis - stable/persistent ddx MYERS Plan: -CTM LFTs #Hyperbilirubinemia - worsening T Bili 1.2 --> 2.8 Most likely in the setting of worsening liver function with lobulated large malignant neoplasm seen on MRCP. Normal gallbladder. Recent abd US showed no stones. No fever, no jaundice seen. Plan: -CTM for abdominal pain when patient is more oriented. RENAL #KADI on CKD stage IIIB DDx most likely 2/2 hypertension, patients A1C 5 BUN 102 Cr 3.7 Plan: -Nephro consulted (Dr. Mccauley) -HDS #HAGMA Ddx lactic acidosis, renal failure, uremia HCO3 27.3, pH 7.36 pCO2 48--> Rubio PCO2= 46-50 Delta-Delta, (18-12)/(27-24)= 2 #Hypokalemia K 3.0 most likely secondary to renal failure. Plan: -Replete as necessary. #Hyperkalemia - Resolved Ddx KADI on CKD Plan: -CTM with repeat renal panels -Kayexelate -Insulin -Calcium gluconate No active problems ENDO #Hx of Hypothyroidism TSH 8.58, actually much improved from most recent admission. Plan: -re-evaluate thyroid functioning in 6 weeks outpatient following thyroid medication changes HEME #Leukocytosis DDx most likely reactive to stress, could be 2/2 infection procal elevated, UA dirty Plan: -Repeat UA -Trend WBC -Zosyn and vanc #Lactic Acidosis Ongoing lactic acidosis. Most likely due to worsening hepatic malignancy, complicated bu poor clearance in the setting of liver failure/malignancy. Plan -CTM -IVF when patient is no longer volume overloaded. ID #Unknown source of infection? Patient lactic acid is persistent. Inguinal wound source appears unlikely due to no signs of infection. Possibly due to hidden abscess? PLan: -CTCAP with IV contrast when MAP >70 #ICU Health maintenance Mechanical ventilation: None Sedation: None Diet: NPO DVT prophylaxis: heparin subq GI prophylaxis: None Falcon: yes with rectal tube Lines: PIV, fem line, dialysis catheter IJ Antibiotics: Vanc zosyn CODE STATUS: Full Patient examined and plan discussed with attending Dr. Myrick and supervising resident Dr. Mejia. Note Written by Andrey Bhatt PGY-1
[2025-03-07] MEDS: ALBUMIN HUMAN-KJDA 25% IVPB 25 GM/100 ML BTL IV (08:30)
[2025-03-07] MEDS: BALSAM PERU/CASTOR OIL (Venelex) 60 GM TUBE TOP ×2 (08:31→22:14)
[2025-03-07] MEDS: Artificial Tears 225 DROP/15 ML BTL BOTH EYES (08:32)
[2025-03-07] MEDS: MICONAZOLE NITRATE CR 2% 15 GM TUBE TOP ×2 (08:34→22:14)
[2025-03-07] MEDS: LIDOCAINE 5% 1 PATCH TOP (09:28)
[2025-03-07 09:56] LABS: Basophils # (Auto) 0.1 Thou/mm3 (0.0-0.2); Basophils % (Auto) 1 % (0-2.5); Eosinophils # (Auto) 0.3 Thou/mm3 (0.0-0.5); Eosinophils % (Auto) 1 % (0-10); Hematocrit 38.4 % (36.0-46.0); Hemoglobin 11.6 g/dL (12.0-16.0); Immature Granulocytes Auto 0.41 Thou/mm3 (0.00-0.00); Lymphocytes # (Auto) 2.9 Thou/mm3 (1.0-4.8); Lymphocytes % (Auto) 14 % (10-50); Mean Corpuscular HGB Conc 30.2 g/dl (31.0-37.0); Mean Corpuscular Hemoglobin 30.8 pg (25.0-35.0); Mean Corpuscular Volume 102 fL (80-100); Monocytes # (Auto) 1.9 Thou/mm3 (0.0-0.8); Monocytes % (Auto) 9 % (0-12); Neutrophils # (Auto) 15.5 Thou/mm3 (1.8-7.7); Neutrophils % (Auto) 73 % (37-80); Nucleated Red Blood Cell # 0.05 Thou/mm3 (0.00-0.00); Nucleated Red Blood Cell % 0 /100 WBC (0); RDW Standard Deviation 70.4 fL (36.4-46.3); Red Blood Count 3.77 Miln/mm3 (4.00-5.20); White Blood Count 21.1 Thou/mm3 (3.6-11.0)
[2025-03-07 09:58] LABS: Platelet Count 78 Thou/mm3 (140-440)
[2025-03-07 10:22] LABS: Slide Review Platelets confirmed
[2025-03-07] MEDS: LACTULOSE SYRUP 20 GM/30 ML UDC 10 GM PO ×2 (10:26→22:15)
[2025-03-07] MEDS: OCTREOTIDE ACET INJ 1,000 MCG in SODIUM CHLORIDE 0.9% 100 ML 5.1 MCG IV (10:40)
[2025-03-07 11:03] LABS: Cocci Serology, IgG Negative (Negative)
[2025-03-07] MEDS: HEPARIN SOD INJ 1000 UNIT/ML VIAL 10 ML 3100 UNIT INDWELLCAT (11:10)
[2025-03-07 11:40] LABS: Clostridium Difficile PCR Negative (Negative)
--- NOTE | 2025-03-07 11:42 | PC.SS ---
Update: Patient on nasal cannula. Patient on pressor support. Patient received dialysis today. Patient is NPO, pending biopsy. Patient receiving IV antibiotics. Patient in possession of sanchez catheter and rectal tube. Dr. Mccauley is consulting. Decision on outpatient dialysis is pending.
--- NOTE | 2025-03-07 11:46 | PD.INTPROG ---
Documentation for date of: 03/07/25 Subjective Subjective Interval history: This is a 70-year-old female who was admitted to the ICU for hyperkalemia and altered mental status. She has a history of Yoder cirrhosis. She had a dialysis catheter placed and underwent dialysis for her hyperkalemia. She tolerated well. There have been no acute overnight events. This morning she is awake alert oriented x 3 and appropriate. She is complaining of significant amount of pain. She states that the pain is everywhere . She is afebrile she has a decreased urinary output 03/04-yesterday afternoon/evening required reinstatement of her Levophed. Today she remains awake alert and communicative. There is a rectal tube in place for her liquid stool secondary to her lactulose. She has had a poor urinary output, she is afebrile. She has had 2 out of 2 bottles positive for GPC's and repeat blood cultures were sent 03/07-patient had originally been downgraded to the floor. She was doing well until yesterday. Yesterday she became more hypotensive. Rapid response was called. Despite 10 mg of midodrine and 25 g of albumin she was still hypotensive with a MAP in the 40s therefore the decision was made to bring her to the ICU. She was slightly confused at that point in time. She was brought to the ICU and a left femoral line was placed and she was started on Levophed. This morning she is currently on dialysis. She has significant stool output with a rectal tube in place. She is afebrile, minimal urinary output Critical Care Note Critical care time (min.): 43 Exam Vital Signs Temp Pulse Resp BP Pulse Ox O2 Del Method O2 Flow Rate 96.9 F 79 20 99/56 L 97 Nasal Cannula 3.5 03/07/25 11:23 03/07/25 11:23 03/07/25 11:23 03/07/25 11:23 03/07/25 11:23 03/07/25 08:00 03/07/25 11: FiO2 3 03/07/25 08:03 Narrative Exam General-no acute distress, awake alert and oriented, conversant, super morbidly obese HEENT-normocephalic, atraumatic, sclera icteric, oral mucosa is dry, EOMI, PERRL, right hemodialysis catheter in place which does not appear to have any purulent drainage and is nontender Chest-diminished lung marti bilaterally no crackles or wheezes auscultated, heart regular rhythmic, no bruits murmurs, no pain on palpation of the chest wall, no increased work of breathing Abdomen-soft, nontender, bowel sounds diminished, no rebound or guarding, bruising over lower pannus where heparin shots of been given, wound in the right inguinal fold that does not look infected currently, left femoral line in place Extremities-, edema of bilateral lower extremities, pulses palpable, no clubbing, no cyanosis, no mottling, no focal deficits Drips Levophed Physical Exam Completion Physical Exam Complete?: Yes 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 03/07/25 07:35 03/07/25 05:10 Labs: Laboratory Results - last 24 hr 03/03/25 03/06/25 03/06/25 07:29 14:49 16:00 WBC RBC Hgb Hct MCV MCH MCHC RDW Std Deviation Plt Count Neut % (Auto) Lymph % (Auto) [place] % (Auto) Eos % (Auto) Baso % (Auto) Neut # (Auto) Lymph # (Auto) [place] # (Auto) Eos # (Auto) Baso # (Auto) Immature Gran # (Auto) Absolute Nucleated RBC Immature Gran % Nucleated RBC % PT INR APTT Puncture Site ABG pH ABG pCO2 ABG pO2 ABG HCO3 ABG O2 Saturation ABG Base Excess VBG pH 7.38 VBG pCO2 44 VBG pO2 76 H VBG O2 Sat (To) 96 VBG Base Excess 1 Oxygen Liter Flow FiO2 Sodium 140 Potassium 3.3 L Chloride 99 Carbon Dioxide 24.1 Anion Gap 17 H BUN 30 H Creatinine 3.5 H D Estim Creat Clear Calc 20.7 L eGFR 14 L* BUN/Creatinine Ratio 9 L Glucose 118 H Calculated Osmolality 286 Lactic Acid 4.5 H* Calcium 8.7 Corrected Calcium 9.4 Phosphorus Magnesium Total Bilirubin 2.5 H AST 132 H ALT 24 Alkaline Phosphatase 291 H D Total Protein 5.4 L Albumin 3.1 L Globulin 2.3 Albumin/Globulin Ratio 1.3 Ur Collection Type Catheter Urine Color Yellow Urine Clarity Turbid A Urine pH 5.5 Ur Specific [place] 1.030 Urine Protein 2+ A Urine Glucose (UA) Negative Urine Ketones Trace Urine Blood 3+ A Urine Nitrite Negative Urine Bilirubin Negative Urine Urobilinogen (Auto) Negative Ur Leukocyte Esterase Positive Urine RBC 55 H Urine WBC 4 Ur Squamous Epith Cells < 1 Amorphous Crystals Present A Urine Bacteria Rare Urine Yeast (Budding) Present A Ur Culture Indicated? Not Indicated Stl C. diff Tox B Gene Random Vancomycin Coccidioides IgG Ab Negative Misc Test Result 03/06/25 03/06/25 03/06/25 16:20 16:43 17:42 WBC 20.3 H RBC 3.57 L Hgb 10.8 L Hct 36.3 MCV 102 H MCH 30.3 MCHC 29.8 L RDW Std Deviation 69.8 H Plt Count 71 L D Neut % (Auto) 72 Lymph % (Auto) 17 [place] % (Auto) 8 Eos % (Auto) 1 Baso % (Auto) 0 Neut # (Auto) 14.5 H Lymph # (Auto) 3.4 [place] # (Auto) 1.7 H Eos # (Auto) 0.2 Baso # (Auto) 0.1 Immature Gran # (Auto) 0.36 H Absolute Nucleated RBC 0.04 H Immature Gran % 2 H Nucleated RBC % 0 PT INR APTT Puncture Site Right Radial ABG pH 7.36 ABG pCO2 49 H ABG pO2 68 L ABG HCO3 28 H ABG O2 Saturation 95 ABG Base Excess 1 VBG pH VBG pCO2 VBG pO2 VBG O2 Sat (To) VBG Base Excess Oxygen Liter Flow 4 FiO2 Sodium 140 Potassium 3.0 L Chloride 98 Carbon Dioxide 26.6 Anion Gap 15 BUN 28 H Creatinine 3.2 H Estim Creat Clear Calc 22.7 L eGFR 15 L BUN/Creatinine Ratio 9 L Glucose 102 Calculated Osmolality 284 Lactic Acid 4.0 H Calcium 9.2 Corrected Calcium 9.4 Phosphorus 3.9 Magnesium 2.3 Total Bilirubin 2.8 H AST 145 H ALT 19 Alkaline Phosphatase 283 H Total Protein 5.9 Albumin 3.7 D Globulin 2.2 L Albumin/Globulin Ratio 1.7 Ur Collection Type Urine Color Urine Clarity Urine pH Ur Specific [place] Urine Protein Urine Glucose (UA) Urine Ketones Urine Blood Urine Nitrite Urine Bilirubin Urine Urobilinogen (Auto) Ur Leukocyte Esterase Urine RBC Urine WBC Ur Squamous Epith Cells Amorphous Crystals Urine Bacteria Urine Yeast (Budding) Ur Culture Indicated? Stl C. diff Tox B Gene Negative Random Vancomycin Coccidioides IgG Ab Misc Test Result Platelets confirmed 03/06/25 03/07/25 03/07/25 21:35 04:38 05:10 WBC RBC Hgb Hct MCV MCH MCHC RDW Std Deviation Plt Count Neut % (Auto) Lymph % (Auto) [place] % (Auto) Eos % (Auto) Baso % (Auto) Neut # (Auto) Lymph # (Auto) [place] # (Auto) Eos # (Auto) Baso # (Auto) Immature Gran # (Auto) Absolute Nucleated RBC Immature Gran % Nucleated RBC % PT 18.1 H INR 1.8 H APTT 35.9 Puncture Site Left Radial ABG pH 7.36 ABG pCO2 48 ABG pO2 64 L ABG HCO3 27 H ABG O2 Saturation 94 ABG Base Excess 1 VBG pH VBG pCO2 VBG pO2 VBG O2 Sat (To) VBG Base Excess Oxygen Liter Flow 4 FiO2 21 Sodium 138 140 Potassium 3.0 L 3.0 L Chloride 99 97 L Carbon Dioxide 26.0 27.3 Anion Gap 13 16 BUN 27 H 35 H Creatinine 3.6 H 3.8 H Estim Creat Clear Calc 20.2 L 19.1 L eGFR 13 L* 12 L* BUN/Creatinine Ratio 8 L 9 L Glucose 109 H 79 Calculated Osmolality 281 286 Lactic Acid 2.8 H Calcium 8.9 9.0 Corrected Calcium 9.3 9.6 Phosphorus 4.8 5.1 Magnesium 2.2 2.2 Total Bilirubin 3.0 H AST 176 H ALT 20 Alkaline Phosphatase 293 H Total Protein 5.5 L Albumin 3.5 3.3 L Globulin 2.2 L Albumin/Globulin Ratio 1.5 Ur Collection Type Urine Color Urine Clarity Urine pH Ur Specific [place] Urine Protein Urine Glucose (UA) Urine Ketones Urine Blood Urine Nitrite Urine Bilirubin Urine Urobilinogen (Auto) Ur Leukocyte Esterase Urine RBC Urine WBC Ur Squamous Epith Cells Amorphous Crystals Urine Bacteria Urine Yeast (Budding) Ur Culture Indicated? Stl C. diff Tox B Gene Random Vancomycin 11.9 Coccidioides IgG Ab Amg [facility] Test Result 03/07/25 07:35 WBC 21.1 H RBC 3.77 L Hgb 11.6 L Hct 38.4 MCV 102 H MCH 30.8 MCHC 30.2 L RDW Std Deviation 70.4 H Plt Count 78 L Neut % (Auto) 73 Lymph % (Auto) 14 [place] % (Auto) 9 Eos % (Auto) 1 Baso % (Auto) 1 Neut # (Auto) 15.5 H Lymph # (Auto) 2.9 [place] # (Auto) 1.9 H Eos # (Auto) 0.3 Baso # (Auto) 0.1 Immature Gran # (Auto) 0.41 H Absolute Nucleated RBC 0.05 H Immature Gran % 2 H Nucleated RBC % 0 PT INR APTT Puncture Site ABG pH ABG pCO2 ABG pO2 ABG HCO3 ABG O2 Saturation ABG Base Excess VBG pH VBG pCO2 VBG pO2 VBG O2 Sat (To) VBG Base Excess Oxygen Liter Flow FiO2 Sodium Potassium Chloride Carbon Dioxide Anion Gap BUN Creatinine Estim Creat Clear Calc eGFR BUN/Creatinine Ratio Glucose Calculated Osmolality Lactic Acid Calcium Corrected Calcium Phosphorus Magnesium Total Bilirubin AST ALT Alkaline Phosphatase Total Protein Albumin Globulin Albumin/Globulin Ratio Ur Collection Type Urine Color Urine Clarity Urine pH Ur Specific [place] Urine Protein Urine Glucose (UA) Urine Ketones Urine Blood Urine Nitrite Urine Bilirubin Urine Urobilinogen (Auto) Ur Leukocyte Esterase Urine RBC Urine WBC Ur Squamous Epith Cells Amorphous Crystals Urine Bacteria Urine Yeast (Budding) Ur Culture Indicated? Stl C. 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 She continues to complain of generalized pain - will start gabapentin today CV shock-felt to be distributive in nature with no signs of cardiogenic or hypovolemia. Repeat blood cultures have been sent. She declined once more while on the floor therefore a CT chest abdomen pelvis was obtained. She also had a MRCP performed. She continued to form lactate while on the floor despite assistance with dialysis for clearance. Imaging showed increasing size of a neoplasm on her liver along with additional liver nodules. The MRI stated it was very consistent with a malignant neoplasm and had increased in size from November from 8.9 to 14.9 cm now. This is likely what is currently resulting in the patient's ongoing lactate. There are no signs of additional infection. She did have those original positive blood cultures with Staph hominis however all repeat blood cultures have been negative and she has been on appropriate antibiotic therapy. Her Levophed requirements have gone down. - cont her midodrine 10mg q6 Tropinemia- in the setting of KADI and sepsis, likely type II and trending down Resp stable Renal Acute kidney injury- currently on HD - has had minimal UOP - seen by nephrology and recs appreciated - ? HRS HypoK- replete via central line and PO GI Cirrhosis-lactulose and rifaximin - Has had significant stool output Liver mass-patient has had increasing size in her liver mass from about 9 cm in November to about 15 cm currently - feel that this is likely the source of her ongoing LA production - path from Nov did not show malignant cells - will need another biopsy as this is most likely undx cancer Endo Hypothyroids- cont synthroid Heme Leukocytosis-currently trending downward -Stable Anemia-has had a drop from arrival, no active bleeding noted, may be dilutional in nature, will continue to monitor -Continues with slow trend down -Stool does not appear to be melanotic in nature - stable Thrombocytopenia- PLT have dropped from arrival - remain stable - ? sequestration v sepsis Coagulopathy- with cirrhosis and given vit k - stable ID Bacteremia- - staph hominis bacteremia noted and repeat bcx have been neg - pts cefazolin changed to vanc/zosyn once more given the change in her status Sepsis- meets criteria for SIRS with unclear source and GPC bacteremia - Staph hominis - bcx fu NTD case d/w ICU team d/w family at bedside labs, imaging, records reviewed ~ 43ccmin required for eval, exam, review, intervention, dicussion and formulation of POC for this critically ill patient with shock on vasopressors at a high risk of further ongoing decompensation Provider Notation Provider Notation: Although this document has been carefully reviewed, there may still be some phonetic and other typographical errors. These errors are purely grammatical due to imperfections in the software program and should not be construed in any way to compromise the substance of the patient's medical care during this visit. Thank you for the opportunity and privilege in assisting you with this patient's care and management.
[2025-03-07 11:49] LABS: AFP Non-Pregnant < 1.30 ng/mL (<8.10)
[2025-03-07] MEDS: Norepinephrine/D5W 8mg/250ml 8 MG/250 ML BAG 27.121 MG IV ×2 (12:48→23:30)
--- NOTE | 2025-03-07 13:20 | PC.SS ---
Patient's daughter: Kate Poe .
[2025-03-07 13:37] LABS: Albumin, Serum 3.6 gm/dL (3.4-4.8); Anion Gap 13 (7-16); BUN/Creatinine Ratio 6 Ratio (12-20); Blood Urea Nitrogen 16 mg/dL (9-23); Calcium 8.6 mg/dL (8.3-10.6); Calcium (Corrected) 8.9 mg/dL (8.5-10.1); Carbon Dioxide 27.9 mMol/L (20.0-31.0); Chloride 98 mMol/L (98-107); Creatinine (Component) 2.5 mg/dL (0.6-1.3); Estimated Creatinine Clearance 30.4 mL/min (>60); Glucose 78 mg/dL (74-106); Osmolality,Calculated 277 (275-295); Phosphorous 3.7 mg/dL (2.4-5.1); Potassium 3.4 mMol/L (3.4-5.1); Sodium 139 mMol/L (136-145); eGFR 20 See Note
[2025-03-07] MEDS: POTASSIUM CHL 10 mEq IVPB 10 MEQ/100 ML BAG 100 MEQ IV ×4 (13:44→17:46)
[2025-03-07] MEDS: Vancomycin Inj 2,000 MG in SODIUM CHLORIDE 0.9% 500 ML 500 ML 120 MG IV (16:19)
[2025-03-08] VITALS (117 sets, daily range): BP systolic 70–151; BP diastolic 34–93; PULSE 76–254; RESP 7–38; TEMP 36–36.8; O2SAT 91–99
[2025-03-08 01:16] LABS: Lactate (Lactic Acid) 2.7 mMol/L (0.4-2.0)
[2025-03-08] MEDS: OCTREOTIDE ACET INJ 1,000 MCG in SODIUM CHLORIDE 0.9% 100 ML 5.1 MCG IV (02:32)
[2025-03-08 04:06] LABS: Reflex Lactate? Y
--- NOTE | 2025-03-08 05:00 | XR_ITS ---
EXAMINATION: AP chest single view TECHNIQUE: AP portable semiupright chest single view Date and time: March 08, 2025, 0532 hours, comparison March 06, 2025 INDICATIONS: Respiratory failure, shortness of breath this week, heart failure on earlier chest imaging FINDINGS: Mild to moderate heart failure Mild enlargement cardiac contour Prominent vascular congestion including central vascular engorgement Perihilar basilar edema Orogastric tube very poorly visualized in its lower portion Right internal jugular dialysis catheter tips right atrium Reduced inspiratory effort IMPRESSION: Mild to moderate heart failure
[2025-03-08 05:29] LABS: Lactate (Lactic Acid) 3.5 mMol/L (0.4-2.0)
[2025-03-08 05:38] LABS: Basophils # (Auto) 0.1 Thou/mm3 (0.0-0.2); Basophils % (Auto) 0 % (0-2.5); Eosinophils # (Auto) 0.3 Thou/mm3 (0.0-0.5); Eosinophils % (Auto) 2 % (0-10); Hematocrit 38.2 % (36.0-46.0); Hemoglobin 11.7 g/dL (12.0-16.0); Immature Granulocytes Auto 0.41 Thou/mm3 (0.00-0.00); Lymphocytes # (Auto) 2.9 Thou/mm3 (1.0-4.8); Lymphocytes % (Auto) 14 % (10-50); Mean Corpuscular HGB Conc 30.6 g/dl (31.0-37.0); Mean Corpuscular Hemoglobin 31.1 pg (25.0-35.0); Mean Corpuscular Volume 102 fL (80-100); Monocytes # (Auto) 1.9 Thou/mm3 (0.0-0.8); Monocytes % (Auto) 9 % (0-12); Neutrophils # (Auto) 15.0 Thou/mm3 (1.8-7.7); Neutrophils % (Auto) 73 % (37-80); Nucleated Red Blood Cell # 0.07 Thou/mm3 (0.00-0.00); Nucleated Red Blood Cell % 0 /100 WBC (0); Platelet Count 89 Thou/mm3 (140-440); RDW Standard Deviation 70.9 fL (36.4-46.3); Red Blood Count 3.76 Miln/mm3 (4.00-5.20); White Blood Count 20.6 Thou/mm3 (3.6-11.0)
[2025-03-08 05:40] LABS: Base Excess 1 (-3-3); HCO3 27 mEq/L (20-26); Inspired Oxygen, FIO2 21 %; PCO2 47 mmHg (32.0-48.0); PO2 63 mmHg (83-108); pH, Arterial 7.37 (7.35-7.45)
[2025-03-08 05:42] LABS: Allen Test Performed/OK; O2 Saturation 94 % (91-98); Puncture Site Right Radial
[2025-03-08 05:49] LABS: INR 1.6 (0.9-1.3); Partial Thromboplastin Time 39.8 Seconds (22.0-36.0); Prothrombin Time 16.6 Seconds (9.0-12.2)
[2025-03-08] MEDS: PIPER/TAZO 3.375 GM PREMIX 3.375 GM/50 ML BAG IV ×2 (05:50→21:43)
[2025-03-08 07:07] LABS: Alanine Aminotransferase 12 U/L (10-49); Albumin, Serum 3.1 gm/dL (3.4-4.8); Albumin/Globulin Ratio 1.2 (1.2-2.2); Alkaline Phosphatase 288 U/L (46-116); Anion Gap 15 (7-16); Aspartate Amino Transferase 202 U/L (0-34); BUN/Creatinine Ratio 8 Ratio (12-20); Bilirubin,Total 3.5 mg/dL (0.3-1.2); Blood Urea Nitrogen 24 mg/dL (9-23); Calcium 8.6 mg/dL (8.3-10.6); Calcium (Corrected) 9.3 mg/dL (8.5-10.1); Carbon Dioxide 25.0 mMol/L (20.0-31.0); Chloride 96 mMol/L (98-107); Creatinine (Component) 3.2 mg/dL (0.6-1.3); Estimated Creatinine Clearance 23.8 mL/min (>60); Globulin 2.6 gm/dL (2.3-3.5); Glucose 52 mg/dL (74-106); Magnesium 1.9 mg/dL (1.6-2.6); Osmolality,Calculated 272 (275-295); Phosphorous 4.8 mg/dL (2.4-5.1); Potassium 3.8 mMol/L (3.4-5.1); Sodium 136 mMol/L (136-145); Total Protein 5.7 gm/dL (5.7-8.2); Vancomycin,Random 33.8 mcg/mL; eGFR 15 See Note
[2025-03-08] MEDS: DEXTROSE 50%-WATER INJ 50 ML SYRINGE IVP (07:56)
[2025-03-08 08:29] LABS: Reflex Lactate? Y
[2025-03-08] MEDS: Norepinephrine/D5W 8mg/250ml 8 MG/250 ML BAG 22.19 MG IV (09:00)
--- NOTE | 2025-03-08 10:02 | XR_ITS ---
EXAM: CT-guided liver biopsy. DATE: 03/08/2025, 10:29 a.m. INDICATION: Liver mass. CTDI: 90.3 DLP: 23.82 PROCEDURE: After discussion of risks and benefits informed consent was obtained. Patient brought to the CT table and placed in a left lateral oblique position. Preliminary noncontrast enhanced CT demonstrated a large heterogeneous area of low density in the posterior right hepatic lobe. This was targeted for biopsy. The overlying skin was cleaned and draped in normal sterile surgical fashion. 10 cc of 1% lidocaine was used for local anesthesia. Conscious sedation was begun with direct continuous nursing supervision. Using CT guidance an 18-gauge needle biopsy system was sequentially advanced into the targeted area. Multiple core biopsy samples were obtained and sent to lab for analysis. Needle was withdrawn. Hemostasis was achieved. The access site was covered with a sterile dressing. Postbiopsy noncontrast enhanced CT demonstrated no evidence of acute hemorrhage or other complication. Patient tolerated the procedure well and was transferred back to the floor. IMPRESSION: Successful CT-guided right posterior hepatic lobe liver biopsy as above.
[2025-03-08] MEDS: MIDAZOLAM INJ 1 MG/ML VIAL 2 ML IVP (10:42)
[2025-03-08] MEDS: fentaNYL CIT INJ 50 mCg/ML AMP 2ML IVP (10:42)
[2025-03-08] MEDS: LIDOCAINE INJ PF 1% 30 ML VIAL 19 ML INFL (10:45)
--- NOTE | 2025-03-08 11:00 | ESPR_ITS ---
<Statement entered by Francine Duran MD - 03/09/25 13:41> TOTAL CC TIME: 45 MIN I saw and evaluated the patient. I reviewed the resident?s note and agree with findings and plan as documented in the resident?s note. Upon my evaluation, this patient had a high probability of imminent or life- threatening deterioration due to distributive shock - likely septic , which required my direct attention, intervention, and personal management. This time is exclusive of time spent on procedures, which are documented separately if performed. repeat liver bx completed - f/u remains on pressors - septic shock w/ staph hominis bacteremia likely etiology repeat bld clx negative will consider narrowing abx tomorrow remains HD dependent and perm cath to be scheduled <Statement entered by Dominick Mejia MD - 03/08/25 15:41> I have reviewed the note and agree with the resident's assessment & plan with exceptions as below. I have personally reviewed labs, imaging, home meds/prior records, examined the patient, formulated and discussed management plan with the IM team. Pt examined at bedside today. No acute overnight events. Pt to get IR CT guided liver biopsy today. Pt's Cr function today 3.2, improved from yesterday, however continues to be Anuric with less than 100 cc output. Blood cultures continue to show no growth at this time. Continuing with Levophed at this time, weaning down as tolerated. Adjusted Tylenol PRN for acute liver injury at this time. Confirmed with pathologist, Dr. Candelaria, who says pathology report for Liver biopsy in November 2024 does not show cirrhosis at this time. Pt's new liver biopsy will be read STAT and followed up on tomorrow. This would mean HRS not on the differential for worsening kidney function as HFS would likely require a patient to have cirrhosis. Kidney function likely related to ATN. Pt could be having kidney injury related to hypotension and perfusion with antihypertensives, narcotics and muscle relaxers at home prior to admission. Nephrology on Consult, Dr. Mccauley, pt to get dialysis today. Spoke with nephrology today in regards for possible TDC, however, will evaluate further once seeing patient. D/C Octretide today, gave 25 g albumin x1, IVC seems collapsible w/bedside POCUS. During liver biopsy, it was noted that pt had possible cyst, in which a sample was obtained and sent out for gram stain and fungal culture. Repeat Hematology, Chemistry in AM. #Hepatic Encephalopathy #Shock #OHS #Bilateral pleural effusions #Atelectasis vs PNA at lung base #? Neoplasm of the liver #Acute Decompensated Liver Liver #Hx of MYERS, confirmed with biopsy #Major ileus #Transaminitis #Hyperbilirubinemia #KADI on CKD stage IIIB #Anuric #ATN #HAGMA #Hyperkalemia #Subclinical Hypothyroidism #Leukocytosis #Lactic Acidosis Dominick Mejia, PGY-2 Internal Medicine Documentation for date of: 03/08/25 Subjective Subjective Interval history: 70-year-old female with a history of chronic kidney disease (CKD), cirrhosis, hypothyroidism, recent giardia infection, and chronic back pain (oxy q4), was recently admitted with severe hyperkalemia (K 7.1), KADI, and generalized weakness, who presented from [facility] due to encephalopathy. ED Course Summary Vitals: BP 87/60 HR 82 RR 19 T 97.6F O2 sat 93% 2L NC Labs: WBC 18.9 PT 16.1 INR 1.6 APTT 34.5, Na 130 K 7.7 HCO3 19 BUN 102 Cr 3.7 Ca 8.2 Mg 3.2 T Bili 1.6 AST 124 ALT 47 ALP 483 Ammonia 178 Procal 4.5 TSH 8.58 UA Leukocyte esterase + WBC 157 Sq Epithelial cells 15 bacteria +3 ABG pH 7.37 pCO2 34 pO2 99 HCO3 20 O2 sat 98% EKG new LBBB HR 88 QRSd [address] negative for acute hemorrhage, mass effect or midline shift Head/Neck CTA Parenchymal disease in RUL, no significant arterial stenoses, no cerebral large vessel arterial occlusions or thrombus Treatment: LR 1.7 L, sodium bicarbonate 50meq, insuling regular 10, calcium chloride 10ml, Dextrose 50 ml, albuterol 10mg, dextrose 50ml, Calcium chloride 10ml, sodium bicarbonate 50ml, sodium polystyrene sulfonate 15g, LR 1 L, zosyn 4.5 g, CaCl 10ml, lactulose 10g, sodium bicarbonate 50 meq, dextrose 50ml, insulin regular 6 units, sodium polystyrene sulfonate 15g Consults and why: tele neuro for c/f stroke, 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 Mccauley for HDS Patient is known to the interviewer who admitted her in January with a very similar presentation, however this time her mentation is much worse. AOx0 GCS 11 (E 4 S 3 M 4). Her was at bedside to assist with interview but he had little to no information. Most of history was gathered per chart review. From what can be gathered, she was returning to her normal baseline at the facility, however, the day prior she felt nauseas and she stopped eating and drinking yesterday. She was found to be repeating herself and yelling at the facility. Patient in the same state currently, with her eyes wide open, non blinking, and repeatedly yelling or repeating the questions asked to her. At times she seems to acknowledge her , however she does not respond to commands. 03/02/2025 Patient examined at bedside today. Patient had dialysis last night, was found to have GPC 1 out of 2 bottles and was started on vancomycin and ceftriaxone, kidney function has improved. Patient had 2 bowel movements overnight as well. Patient's morning labs showed creatinine of 3.2, BUN of 71, potassium 52, white count 21, urine output 525 cc T. bili 1.7, phosphorus 6.1, magnesium 2.9, AST 113, ALT 45. Patient remains to be more altered than yesterday. Family present at bedside, says that she has never seen the patient like this and has been feeling very 6 for the past couple months after she had infected with Giardia a couple months ago, however she is unsure if she has got treatment for it. 03/03/2025 Pt examined at bedside today. Pt's GCS appears to be 13, however, eyes do remain closed and withdraws from pain, but can follow commands. Her sodium is 141 today, potassium 3.4, phosphorus 1.4, white count 9.7, hemoglobin 12.9, creatinine 0.7, she was found to have gram-positive cocci 1 out of 2 bottles, could be contaminant, however will repeat blood cultures. pH on ABG was 7.52 pCO2 of 30, likely indicating acute respiratory acidosis that is not appropriately compensated. Patient will need MRI due to concern for infection or embolic CVA. Pt's blood sugar continues to drop, however, will adjust Degludec to 18 units and continue with SSI as pt's gap as closed and DKA resolved. She will will be downgraded to telemetry later today. No longer on pressors as of last night. 03/04/2025 Patient examined bedside today she is AO x 3 GCS 15 she was started on low-dose levo 0.6 last night and breathing treatment. Overnight she had good stool output and 1500 mL per the rectal tube and 120 mL of urine output today during dialysis she started on 0.05 levo vital signs for today blood pressure 108/86 heart rate 103 respirations 23 temperature 97.6 ?F and she is satting at 95% oxygenation on 3 L nasal cannula. We believe her hepatic encephalopathy has resolved she is AO x 3 GCS of 15. We are starting her on midodrine 10 p.o. every 6 hours. We are repeating the EKG to reevaluate the left bundle branch block. Discontinuing the octreotide drip. Her lactic acid continues to be elevated 2.9 most likely has to do with poor clearance due to her cirrhosis. Stopping zosyn and starting cefazolin IV. Urine cultures returned with no growth. 03/05/25: Downgraded from ICU overnight, off vasopressors. Patient seen and examined at bedside. The patient refers back pain that is chronic, switched home Percocet to Conde. Initial lactate this morning 3.5, repeat lactate 6.1, 6.9, uptrending. ICU team was reconsulted, recommend 500 cc bolus IV fluids and ABG if worsening acidosis. 25g of albumin ordered in addition of 500mL LR. Of note, there was concern for purulent drainage at right subclavian dialysis cath insertion site. The site was examined today and appears dry, clean, intact. T. Bili continue to uptrend, US gallbladder reveals cholelithiasis with gallbladder wall thickening, MRCP and CT abd ordered. Dialysis today, follow up with ABG. Continue to trend lactate. 03/06/25 Today patient was upgraded to the ICU due to refractory hypotension not improving on midodrine and albumin. She is AO x 2 initial examination she was unaware of the year thinking was 1919. She has elevated white count 20.3 right radial ABG showed pH of 7.36 pCO2 of 49 pO2 of 68 bicarb 28 ABG O2 saturation of 95 potassium is 3.3 BUN 30 creatinine 3.5 lactic acid has been around 3.6 has trended up to 4.5. T. bili is 2.5. Her platelets are 71. MRCP today showed lobulated malignant neoplasm in the superior portion of the head of the liver radiologist believes it is a malignant apical neoplasm certainly and normally represents hepatic cellular carcinoma. The liver is enlarged moderately since previous MRI. The MRI also show symptomatic moderate ascites with minimal pleural effusions of both lower lungs. There is major abdominal distention of entire stomach with huge air-fluid level most likely related to major ileus. The gallbladder is well-seen and normal I saw the biliary ducts and pancreatic duct. There is significant atrophy of the right kidney. There is a major compression fracture in the body of L4 and lumbar spine. Patient was upgraded to the ICU given levo 12.8 mL/h bolus of LR 1 L started on Zosyn and vancomycin and discontinuing cefazolin. Left femoral line was placed for IV access. Vasopressin was also ordered. Blood cultures C. difficile with signout trending lactic acid and urinalysis was also sent out. Plan to get CT CAP with contrast once maps above 70. An NG tube was placed. For decompression of the air-fluid levels seen on imaging. On physical exam the right inguinal lesion is stable unchanged there is no purulent or pustulant material noted no fluid expressed it is nonbleeding and appears packed and clean and dry. 03/07/2025 Today no overnight events. CT CAP was taken. patient started on dialysis with plan for removal of [address] Mccauley spoke to the night resident who said that they believe the patient has type I hepatorenal syndrome. Today patient has 2 peripheral IVs dialysis in the right internal jugular central line left femoral on pressor support levo 0.09, NG tube in and rectal tube she had bowel movements around 400 mL over 24 hours and urine 20 cc Vitals blood pressure 98/48 heart rate 77 respiration 18 oxygen saturation 96% on 4 L nasal cannula and she is afebrile Today patient is AO x 3 she reports feeling well and she has not any pain her pitting edema is worsening from +2 to +3. CT CAP that was done shows atelectasis versus pneumonia at the lung base mild heart failure and small bilateral bilateral pleural effusions also showed cirrhosis multiple liver lesions largest being mid to posterior the right lobe of the liver liver measuring at least 9 cm, there are esophageal varices, portal systematic portosystemic collateral vessels medial to the spleen, prominent splenomegaly she has moderate ascites anasarca diffuse thickening of the colonic wall. Continuing to give her lactulose for her liver cirrhosis and midodrine 10 for pressor support, continuing Vanc and Zosyn in case there is underlying infection for her. For the malignant neoplasm of the liver we are consulting IR to do a CT-guided biopsy. After discussions there is concern that her lactic acidosis is secondary to her malignancy producing lactate in the setting of decompensated cirrhosis poor perfusion causing also poor clearance. Patient passed swallow screen we will start her on a diet to clear liquid diet. 03/08/2025 Today patient is AO x 3 white blood cell count continues to be 20.6 hemoglobin stable 11.7 lactic acid continues to uptake to 3.5 from 2.7 yesterday blood cultures showed no growth at 24 hours urine culture is clean vital signs are stable and afebrile. Dr. Candelaria was called to discuss the concern for hepatorenal syndrome per the last liver biopsy and he does not believe the liver is at end-stage liver disease and is only at early stage fibrosis not cirrhotic. Pt's new liver biopsy will be read STAT and followed up on tomorrow. This would mean HRS not on the differential for worsening kidney function as HFS would likely require a patient to have cirrhosis. Kidney function likely related to ATN. Pt could be having kidney injury related to hypotension and perfusion with antihypertensives, narcotics and muscle relaxers at home prior to admission. During liver biopsy, it was noted that pt had possible cyst, in which a sample was obtained and sent out for gram stain and fungal culture. She is currently on Levophed 0.11. Patient will now get a liver biopsy tonight the results will come in tomorrow. Still searching for source of lactic acidosis. Today interviewer was alerted that patient has sacral ulcers most likely from pressure wounds on examination of the sacrum there are 2 to superficial lesions and 2 to 3 cm in diameter not actively bleeding wound care has wrapping over it. Patient was consented for tunneled dialysis catheter tomorrow with IR. Dr. Mccauley believes patient is in hepatorenal type 1 due to low kidney output but preserved kidney function indicated by urine sodium <15. Exam Vital Signs Temp Pulse Resp BP Pulse Ox O2 Del Method O2 Flow Rate 97.6 F 86 12 129/55 L 95 Nasal Cannula 4 03/08/25 08:00 03/08/25 10:58 03/08/25 10:58 03/08/25 10:58 03/08/25 10:58 03/08/25 10:58 03/08/25 10:58 FiO2 3 03/07/25 08:03 Narrative Exam General: AAOx3, eyes are open, morbidly obese, no distress, feels bloated HEENT: Mucous membranes dry, conjuctiva normal, PERRL, accomodation intact. Cardiovascular: S1, S2, radial pulses +2 bilat, RRR Pulmonary: Difficulty appreciating breath sounds GI: Abdomen distended, bowel sounds present, NTTP, stable inguinal crease lesions Extremities: Anasarca, dorsalis pedis pulses +2 bilaterally. Normal perfusion. +2/3 pedal edema Neuro: AAOx3, no gross focal neurological deficits Skin: Right inguinal fold shows non-draining ulcer that does not appear to be infected at this time, however it appears to be about 2 cm deep and 0.5 -1.0 cm in circumference, multiple areas of purpura throughout right side of abdomen from fall. Superficial sacral pressure lesions 2-3cms in circumference. Objective Labs 03/08/25 04:40 03/08/25 04:40 Labs: Laboratory Results - last 24 hr 03/03/25 03/06/25 03/07/25 07:29 16:20 07:30 WBC RBC Hgb Hct MCV MCH MCHC RDW Std Deviation Plt Count Neut % (Auto) Lymph % (Auto) [place] % (Auto) Eos % (Auto) Baso % (Auto) Neut # (Auto) Lymph # (Auto) [place] # (Auto) Eos # (Auto) Baso # (Auto) Immature Gran # (Auto) Absolute Nucleated RBC Immature Gran % Nucleated RBC % PT INR APTT Puncture Site ABG pH ABG pCO2 ABG pO2 ABG HCO3 ABG O2 Saturation ABG Base Excess FiO2 Sodium Potassium Chloride Carbon Dioxide Anion Gap BUN Creatinine Estim Creat Clear Calc eGFR BUN/Creatinine Ratio Glucose Calculated Osmolality Lactic Acid Calcium Corrected Calcium Phosphorus Magnesium Total Bilirubin AST ALT Alkaline Phosphatase Total Protein Albumin Globulin Albumin/Globulin Ratio Tumor Marker AFP < 1.30 Stl C. diff Tox B Gene Negative Random Vancomycin Coccidioides IgG Ab Negative 03/07/25 03/08/25 03/08/25 12:40 00:52 04:40 WBC 20.6 H RBC 3.76 L Hgb 11.7 L Hct 38.2 MCV 102 H MCH 31.1 MCHC 30.6 L RDW Std Deviation 70.9 H Plt Count 89 L Neut % (Auto) 73 Lymph % (Auto) 14 [place] % (Auto) 9 Eos % (Auto) 2 Baso % (Auto) 0 Neut # (Auto) 15.0 H Lymph # (Auto) 2.9 [place] # (Auto) 1.9 H Eos # (Auto) 0.3 Baso # (Auto) 0.1 Immature Gran # (Auto) 0.41 H Absolute Nucleated RBC 0.07 H Immature Gran % 2 H Nucleated RBC % 0 PT 16.6 H INR 1.6 H APTT 39.8 H Puncture Site ABG pH ABG pCO2 ABG pO2 ABG HCO3 ABG O2 Saturation ABG Base Excess FiO2 Sodium 139 136 Potassium 3.4 3.8 Chloride 98 96 L Carbon Dioxide 27.9 25.0 Anion Gap 13 15 BUN 16 24 H Creatinine 2.5 H D 3.2 H D Estim Creat Clear Calc 30.4 L 23.8 L eGFR 20 L 15 L BUN/Creatinine Ratio 6 L 8 L Glucose 78 52 L Calculated Osmolality 277 272 L Lactic Acid 2.7 H Calcium 8.6 8.6 Corrected Calcium 8.9 9.3 Phosphorus 3.7 4.8 Magnesium 1.9 Total Bilirubin 3.5 H D AST 202 H ALT 12 Alkaline Phosphatase 288 H Total Protein 5.7 Albumin 3.6 3.1 L D Globulin 2.6 Albumin/Globulin Ratio 1.2 Tumor Marker AFP Stl C. diff Tox B Gene Random Vancomycin 33.8 Coccidioides IgG Ab 03/08/25 03/08/25 05:16 05:25 WBC RBC Hgb Hct MCV MCH MCHC RDW Std Deviation Plt Count Neut % (Auto) Lymph % (Auto) [place] % (Auto) Eos % (Auto) Baso % (Auto) Neut # (Auto) Lymph # (Auto) [place] # (Auto) Eos # (Auto) Baso # (Auto) Immature Gran # (Auto) Absolute Nucleated RBC Immature Gran % Nucleated RBC % PT INR APTT Puncture Site Right Radial ABG pH 7.37 ABG pCO2 47 ABG pO2 63 L ABG HCO3 27 H ABG O2 Saturation 94 ABG Base Excess 1 FiO2 21 Sodium Potassium Chloride Carbon Dioxide Anion Gap BUN Creatinine Estim Creat Clear Calc eGFR BUN/Creatinine Ratio Glucose Calculated Osmolality Lactic Acid 3.5 H Calcium Corrected Calcium Phosphorus Magnesium Total Bilirubin AST ALT Alkaline Phosphatase Total Protein Albumin Globulin Albumin/Globulin Ratio Tumor Marker AFP Stl C. diff Tox B Gene Random Vancomycin Coccidioides IgG Ab ABG Interpretation ABG results: 03/01/25 03/01/25 03/02/25 09:05 16:01 04:53 ABG pH 7.37 7.33 L 7.44 D ABG pCO2 34 34 35 ABG pO2 99 99 82 L ABG HCO3 20 18 L 24 ABG O2 Saturation 99 H 98 97 ABG Base Excess -5 L -7 L 0 VBG pH VBG pCO2 VBG pO2 VBG Base Excess 03/02/25 03/03/25 03/04/25 08:43 04:28 05:02 ABG pH 7.48 H 7.40 7.42 ABG pCO2 29 L 40 D 42 ABG pO2 130 H D 75 L D 54 L* D ABG HCO3 22 25 27 H ABG O2 Saturation 100 H 96 90 L ABG Base Excess -1 0 2 VBG pH VBG pCO2 VBG pO2 VBG Base Excess 03/05/25 03/06/25 03/06/25 16:21 14:49 16:43 ABG pH 7.40 7.36 ABG pCO2 44 49 H ABG pO2 69 L 68 L ABG HCO3 27 H 28 H ABG O2 Saturation 96 95 ABG Base Excess 2 1 VBG pH 7.38 VBG pCO2 44 VBG pO2 76 H VBG Base Excess 1 03/07/25 03/08/25 04:38 05:25 ABG pH 7.36 7.37 ABG pCO2 48 47 ABG pO2 64 L 63 L ABG HCO3 27 H 27 H ABG O2 Saturation 94 94 ABG Base Excess 1 1 VBG pH VBG pCO2 VBG pO2 VBG Base Excess Quality Measures Quality Measures VTE prophylaxis Advance care planning discussed with:: patient Assessment & Plan Assessment Current Active Medications: Generic Name Dose Route Start Last Admin Trade Name Freq PRN Reason Stop Dose Admin Acetaminophen 325 mg 03/08/25 09:46 Acetaminophen Rosario 325 Mg/10 Ml Udc NG 04/07/25 09:45 Q6HR PRN FEVER >100.4 OR PAIN 1-3 Hydrocodone Bitart/Acetaminophen 1 tab 03/05/25 17:30 03/07/25 17:42 Hydrocodone/Apap 10/325 Tab PO 03/10/25 17:29 1 tab On Hold: 03/08/25 00:00 Q6HR PRN Administration PAIN SCALE 7-10 (Severe Albuterol/Ipratropium 3 ml 03/04/25 07:03 03/06/25 15:26 Albuterol/Ipratropium (Duoneb) Rt Rosario 3 Ml Nebu INH 03/31/25 14:59 3 ml Q4HRRT PRN Administration wheeze Artificial Tears 0 drop 03/02/25 08:48 03/07/25 08:32 Artificial Tears 225 Drop/15 Ml Btl BOTH EYES 04/01/25 08:47 2 drops PRN PRN Administration TO KEEP EYES MOIST Balsam [place] Oil 0 gm 03/06/25 21:00 03/07/25 22:14 Balsam [place] Oil (Venelex) 60 Gm Tube TOP 04/05/25 20:59 1 applicatio BID RAMON Administration Gabapentin 200 mg 03/03/25 16:00 03/08/25 05:47 Gabapentin 100 Mg Capsule NG 04/02/25 15:59 Not Given TID RAMON Heparin Sodium (Porcine) 5,000 unit 03/01/25 21:00 03/07/25 09:25 Heparin Sod Inj 5000 Unit/Ml Vial SC 03/15/25 20:59 Not Given On Hold: 03/07/25 18:46 Q12HR [facility]1983 Heparin Sodium (Porcine) 3,100 unit 03/01/25 18:45 03/07/25 11:10 Heparin Sod Inj 1000 Unit/Ml Vial 10 Ml INDWELLCAT 03/15/25 18:44 3,100 unit X1 PRN Administration DIALYSIS Albumin Human 25 gm in 100 mls @ 0 mls/hr 03/05/25 17:05 03/05/25 17:10 Albuminex 25% Ivpb IV 100 mls/hr Q30M PRN Administration DIALYSIS UD Norepinephrine/Dextrose 8 mg in 250 mls @ 12.328 mls/hr 03/06/25 15:58 03/08/25 09:00 Levophed In D5w 8mg/250ml IV 04/05/25 15:57 0.09 mcg/kg/min .[id number] PRN 22.19 mls/hr PER PROTOCOL Administration Protocol 0.05 MCG/KG/MIN Piperacillin/Tazobactam/Dextrose 3.375 gm in 50 mls @ 100 mls/hr 03/06/25 16:29 03/08/25 05:50 Zosyn IV 03/13/25 16:28 100 mls/hr Q8HR RAMON Administration Protocol Lactulose 10 gm 03/07/25 10:00 03/08/25 05:47 Lactulose Syrup 20 Gm/30 Ml Udc PO 04/06/25 09:59 Not Given TID RAMON Protocol Levothyroxine Sodium 125 mcg/ 150 mcg 03/05/25 06:00 03/08/25 05:48 Levothyroxine Sodium 25 mcg PO 04/04/25 05:59 Not Given ACBR RAMON Lidocaine 1 patch 03/02/25 11:57 03/07/25 09:28 Lidocaine 5% 1 Patch TOP 04/01/25 11:56 1 patch UD PRN Administration localized pain Protocol Miconazole Nitrate 0 gm 03/02/25 12:00 03/07/25 22:14 Miconazole Nitrate Cr 2% 15 Gm Tube TOP 04/01/25 11:59 1 applicatio BID RAMON Administration Midodrine 10 mg 03/07/25 09:29 03/07/25 10:17 Midodrine 5 Mg Tablet PO 04/03/25 09:59 10 mg Q6H PRN Administration MAP less than 65 Ondansetron HCl 4 mg 03/01/25 14:01 Ondansetron Inj 2 Mg/Ml Inj 2 Ml IVP 03/31/25 14:00 Q6H PRN NAUSEA OR VOMITING Protocol Pharmacy Consult 1 each 03/04/25 11:09 Pharmacy Renal Dose Adjustment 1 Ea XX 04/03/25 11:08 PRN PRN CONSULT Pharmacy Consult 1 each 03/06/25 16:30 Vancomycin Pharmacy To Dose 1 Each Each IV 04/05/25 16:29 QDAY PRN GI INFECTION Rifaximin 550 mg 03/02/25 11:00 03/07/25 22:14 Rifaximin 550 Mg Tablet NG 03/09/25 10:59 550 mg BID RAMON Administration Sodium Chloride 3 ml 03/01/25 11:02 Sodium Chloride Rt Rosario 0.9% 3 Ml Nebu INH 03/31/25 11:01 PRN PRN SOLN Plan 70-year-old female with a history of chronic kidney disease (CKD), cirrhosis, hypothyroidism, recent giardia infection, and chronic back pain (oxy q4), was recently admitted with severe hyperkalemia (K 7.1), KADI, and generalized weakness, who presented from [facility] due to encephalopathy. Bounced back to ICU due to shock/refractory hypotension requiring pressor support. Evaluating patient for worsening liver function and unknown source of infection. TRAVEL REGISTERED NURSE NICU #Hepatic Encephalopathy - resolved Patient AOx3 Ddx hepatic failure, renal failure, or underlying infection Dx studies Blood cx, urinalysis, c. diff, Lactic acid RX Resuming lactulose, continuing rifaximin CV #Shock - resolving/stable Ddx distributive most likely in the setting of decompensated liver cirrhosis, less likely renal failure, less likely possible hidden infection. 03/02/2025 ECHO LVEF 50-55%. Mild mitral valve regurgitation, mild tricuspid regurgitation EKG HR 78 QTc 452 AL 200 QRSd 122 She is upgraded because she was hypotensive and refractory to albumin and max doses of midodrine. inguinal crease wound is stable, no pustulent material noted, making infection less likely Dx repeat blood cx:__, liver bx:___, urine cx: no growth Rx: Levofed: 0.11, CTCAP w/con: resulted -Repeat blood cx repeat urinalysis, C diff -Abx for c/f hidden infection - Zosyn + Vanc PULM - Bilateral pleural effusions, atelectasis vs PNA at lung base #Acute on Chronic Hypoxic Hypercapnic Respiratory Failure - resolving Underlying respiratory acidosis with adequate metabolic compensation DDX OHS, atelectasis, COPD, CHF Dx CXR, CTAP RX ISS, duonebs, Nasal cannula RRX - working so far, no respiratory failure in ICU GI MELD NA: 30, Child Spicer:10-11 #Decompensated Liver Disease #HX of MYERS, confirmed with bx Complicated by enlarging liver mass seen on MRI. Ddx cancer, hemangioma, infection Dx CT-bx, CTCAP w/ con, AFP(-) (1/3 of HCC is AFP -) CA 19-9 pending Rx rifaxamin lactulose 10 TID stop at 3 BMs or 2 L of rectal tube output, holding spiranolactone due to low BPs #Neoplasm of the liver? MRCP shows lobulated enlarging right lobe medial segment of left lobe and upper half of liver showing multi diffuse multilobulated multinodular contrast- enhancement. Malignant apical neoplasm is certainly the cause, normally certainly represent hepatic cell carcinoma. The liver has enlarged moderately since previous MRI. Since the prior MRI the patient is well moderate ascites. Dx IR consulted may do CT bx for confirmation, [id number], AFP #Hepatorenal Type 1 Diagnosis of exclusion, patient did not improve on two days of octreotide, double Cr>2.5 or a decrease in Cr Cl by half over a two week period, with urine output less than 500cc/day. Rx exclude other kidney injruoes, pre-renal, nephrotoxic drugs, obstructive nephropathy, and renal parenchymal disease #Major ileus CT C MRCP shows major abdominal distention entire stomach with huge air-fluid level. 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 Normal gallbladder. Recent abd US showed no stones. No fever, no jaundice seen. Plan: -CTM for abdominal pain when patient is more oriented. -FUP CT bx RENAL #KADI on CKD stage IIIB - Anuric DDx most likely 2/2 ATN, hypertension, patients A1C 5 BUN 102 Cr 3.7 Dx urine lytes ordered RX Nephro consulted (Dr. Mccauley) HDS #HAGMA with underlying metabolic alkalosis Ddx lactic acidosis, renal failure, uremia HCO3 25, pH 7.37 pCO2 47--> PCO2= 45.5+/- 2 Delta-Delta, (15-12)/(25-24)= 3 Rx HDS #ATN? Ddx hypotension and poor perfusion from antihypertensives, narcotics, and muscle relaxers Dx Dr. Mccauley consulted urine sodium >15 Rx HDS #Hypokalemia - resolved K 3.0 most likely secondary to renal failure. Plan: -Replete as necessary. #Hyperkalemia - Resolved Ddx KADI on CKD Plan: -CTM with repeat renal panels -Kayexelate -Insulin -Calcium gluconate No active problems ENDO #Subclinical hypothyroidism #Hx of Hypothyroidism TSH 8.58, actually much improved from most recent admission. Plan: -re-evaluate thyroid functioning in 6 weeks outpatient following thyroid medication changes HEME #Leukocytosis DDx most likely reactive to stress, could be 2/2 infection procal elevated, UA dirty Plan: -Repeat UA -Trend WBC -Zosyn and vanc #Lactic Acidosis Ongoing lactic acidosis complicated by poor clearance in the setting of liver failure/malignancy. Plan -CTM -IVF when patient is no longer volume overloaded. -FUP CT bx DERM #Skin shearing/pressure wound Patient has inguinal crease wound 0.5-1.0cm in depth, packed, not weeping or oozing. Another superifical inguinal surface wound. Sacral superifical presure wound. Skin dehisces on traction Dx fall one month ago, steroid decreases skin strength, poor wound healing Rx wound care ID #Unknown source of infection? Patient lactic acid is persistent. Inguinal wound source appears unlikely due to no signs of infection. Possibly due to hidden abscess? PLan: -CTCAP with IV contrast when MAP >70 #ICU Health maintenance Mechanical ventilation: None Sedation: None Diet: NPO DVT prophylaxis: heparin subq GI prophylaxis: None Falcon: yes with rectal tube Lines: PIV, fem line, dialysis catheter IJ Antibiotics: Vanc zosyn CODE STATUS: Full Patient examined and plan discussed with attending Dr. Myrick and supervising resident Dr. Mejia. Note Written by Andrey Bhatt PGY-1
[2025-03-08] MEDS: MICONAZOLE NITRATE CR 2% 15 GM TUBE TOP ×2 (11:43→21:45)
[2025-03-08] MEDS: BALSAM PERU/CASTOR OIL (Venelex) 60 GM TUBE TOP ×2 (11:43→21:45)
[2025-03-08 11:48] LABS: Lactate (Lactic Acid) 3.0 mMol/L (0.4-2.0)
[2025-03-08] MEDS: ALBUMIN HUMAN-KJDA 25% IVPB 25 GM/100 ML BTL IV (13:06)
[2025-03-08 14:44] LABS: Reflex Lactate? Y
--- NOTE | 2025-03-08 15:12 | PC.SS ---
Update: Patient receiving dialysis today. On 4L of oxygen. P.O. feeding, renal diet. Receiving pressor support. On IV antibiotics. Afebrile. Dr. Mccauley consulting. Bedside nurse informed of TB test needed if decided that patient will require outpatient dialysis.
[2025-03-08 15:36] LABS: Lactic Acid, 3 HR 2.9 mMol/L (0.4-2.0)
[2025-03-08] MEDS: HEPARIN SOD INJ 1000 UNIT/ML VIAL 10 ML 3100 UNIT INDWELLCAT (16:33)
[2025-03-08] MEDS: Norepinephrine/D5W 8mg/250ml 8 MG/250 ML BAG 51.777 MG IV (16:35)
[2025-03-08 18:43] LABS: Lactate (Lactic Acid) 3.8 mMol/L (0.4-2.0)
--- NOTE | 2025-03-08 21:16 | ESPR_ITS ---
RE: KOMAL GARCIA : 1955 DATE OF SERVICE: 03/08/2025 HISTORY OF PRESENT ILLNESS: Briefly, she is a 70-year-old woman with past medical history significant for hypertension, fatty liver, hypothyroidism, obesity, stage 4-5 CKD, and now most likely ESRD whose baseline serum creatinine was around 1.2-2.8 mg/dL since December 2024 who presented to the hospital on 03/01/2025 with altered level of consciousness and was found with elevated ammonia level and lactic acidosis. Patient was dialyzed since she was admitted. Was successfully transferred out from ICU initially then went back to ICU again due to low BPs. Last dialysis was today, about 2.1 liters of fluid was removed. She is more awake and coherent. Patient also has a history of staphylococcus hominis bacteremia on IV Ancef. Patient also had another liver biopsy today. Patient is back to ICU. Her white count remains elevated. Platelets has gone down since admitted. INR remains around 1.6-1.8. She remains oliguric as well. CURRENT MEDICATIONS: 1. Acetaminophen. 2. Albumin p.r.n. 3. Calcium chloride. 4. Gabapentin 200 mg t.i.d. 5. Hydrocodone. 6. Midodrine 10 mg p.o. q. 6. 7. Vancomycin IV 2 g x1. 8. Zosyn 3.375 g IV q. 8. PHYSICAL EXAMINATION: General: She is awake, alert, just finished her dialysis treatment. Vital Signs: O2 sat is 93% on 4 liters. Blood pressure of 113/56 on Levophed drip. HEENT: Anicteric sclerae. Normocephalic. Neck: Supple. No JVD. Lungs: Symmetric expansion, clear breath sounds. Heart: Regular without murmur. Abdomen: Soft, nontender, obese. Extremities: 2+ bilateral pitting edema. LABORATORY DATA: INR 1.6. Sodium 136, potassium 3.8. Chloride 96, CO2 of 25. BUN 34, creatinine 3.2. Calcium 8.6. Hemoglobin 11.7; WBC 20,600; platelet count 89,000. ASSESSMENT: 1. Oliguric acute kidney injury initially though as secondary to acute tubular necrosis following hemodynamic instability, hypoperfusion, hypertension on advanced chronic kidney disease. Also may have type 1 hepatorenal syndrome given her spot urine, sodium of less than 15. 2. Lactic acidosis secondary to hyperperfusion and combination of kidney and liver failure. 3. Obesity. 4. Staphylococcus hominis septicemia. 5. Liver failure. PLAN: Patient had another liver biopsy today and dialysis as well. There is a plan to place a tunneled dialysis catheter tomorrow at with fresh frozen plasma prior to placement of TDC. Patient had dialysis today, about 2.1 liters of fluid was removed. Next dialysis will be on Wednesday. DT: 21:00:58 TT: 21:15:00 Ref: [id number] - TID: [id number] MTDD
[2025-03-08 21:40] LABS: Reflex Lactate? Y
[2025-03-08] MEDS: GABAPENTIN 100 MG CAPSULE 200 MG NG (21:43)
[2025-03-08] MEDS: LACTULOSE SYRUP 20 GM/30 ML UDC 10 GM PO (21:43)
[2025-03-08] MEDS: Norepinephrine/D5W 8mg/250ml 8 MG/250 ML BAG 46.845 MG IV (22:22)
[2025-03-08 22:49] LABS: Lactic Acid, 3 HR 3.2 mMol/L (0.4-2.0)
[2025-03-09] VITALS (125 sets, daily range): BP systolic 83–144; BP diastolic 41–80; PULSE 76–114; RESP 14–37; TEMP 36–36.8; O2SAT 89–99
[2025-03-09 00:40] LABS: Lactate (Lactic Acid) 2.9 mMol/L (0.4-2.0)
[2025-03-09 03:38] LABS: Reflex Lactate? Y
[2025-03-09] MEDS: Norepinephrine/D5W 8mg/250ml 8 MG/250 ML BAG 46.845 MG IV ×3 (04:30→15:25)
--- NOTE | 2025-03-09 05:00 | XR_ITS ---
EXAMINATION: AP chest single view TECHNIQUE: AP portable supine chest single view Date and time: March 09, 2025, 0509 hours, comparison March 08, 2025 INDICATIONS: Difficulty breathing this week, heart failure pattern on chest x-ray March 08, 2025 FINDINGS: Mild heart failure Mild enlargement cardiac contour Ectatic thoracic aorta Prominent vascular congestion Early pneumonia right base Internal jugular dialysis catheter tips right atrium IMPRESSION: Mild heart failure Early pneumonia right base
[2025-03-09 05:11] LABS: Lactate (Lactic Acid) 3.4 mMol/L (0.4-2.0)
[2025-03-09 05:19] LABS: Basophils # (Auto) 0.1 Thou/mm3 (0.0-0.2); Basophils % (Auto) 0 % (0-2.5); Eosinophils # (Auto) 0.2 Thou/mm3 (0.0-0.5); Eosinophils % (Auto) 1 % (0-10); Hematocrit 38.9 % (36.0-46.0); Hemoglobin 12.0 g/dL (12.0-16.0); Immature Granulocytes Auto 0.44 Thou/mm3 (0.00-0.00); Lymphocytes # (Auto) 3.4 Thou/mm3 (1.0-4.8); Lymphocytes % (Auto) 16 % (10-50); Mean Corpuscular HGB Conc 30.8 g/dl (31.0-37.0); Mean Corpuscular Hemoglobin 31.3 pg (25.0-35.0); Mean Corpuscular Volume 102 fL (80-100); Monocytes # (Auto) 2.0 Thou/mm3 (0.0-0.8); Monocytes % (Auto) 9 % (0-12); Neutrophils # (Auto) 15.1 Thou/mm3 (1.8-7.7); Neutrophils % (Auto) 71 % (37-80); Nucleated Red Blood Cell # 0.06 Thou/mm3 (0.00-0.00); Nucleated Red Blood Cell % 0 /100 WBC (0); RDW Standard Deviation 70.2 fL (36.4-46.3); Red Blood Count 3.83 Miln/mm3 (4.00-5.20); White Blood Count 21.2 Thou/mm3 (3.6-11.0)
[2025-03-09 05:20] LABS: Platelet Count 66 Thou/mm3 (140-440)
[2025-03-09] MEDS: PIPER/TAZO 3.375 GM PREMIX 3.375 GM/50 ML BAG IV (05:20)
[2025-03-09 05:34] LABS: INR 1.6 (0.9-1.3); Partial Thromboplastin Time 39.3 Seconds (22.0-36.0); Prothrombin Time 16.1 Seconds (9.0-12.2)
[2025-03-09 05:35] LABS: Slide Review Platelets confirmed
[2025-03-09 05:53] LABS: Alanine Aminotransferase 7 U/L (10-49); Albumin, Serum 3.2 gm/dL (3.4-4.8); Albumin/Globulin Ratio 1.2 (1.2-2.2); Alkaline Phosphatase 301 U/L (46-116); Anion Gap 12 (7-16); Aspartate Amino Transferase 158 U/L (0-34); BUN/Creatinine Ratio 8 Ratio (12-20); Bilirubin,Total 4.7 mg/dL (0.3-1.2); Blood Urea Nitrogen 24 mg/dL (9-23); Calcium 8.8 mg/dL (8.3-10.6); Calcium (Corrected) 9.4 mg/dL (8.5-10.1); Carbon Dioxide 27.0 mMol/L (20.0-31.0); Chloride 96 mMol/L (98-107); Creatinine (Component) 3.0 mg/dL (0.6-1.3); Estimated Creatinine Clearance 23.9 mL/min (>60); Globulin 2.6 gm/dL (2.3-3.5); Glucose 83 mg/dL (74-106); Magnesium 2.1 mg/dL (1.6-2.6); Osmolality,Calculated 273 (275-295); Phosphorous 4.0 mg/dL (2.4-5.1); Potassium 4.1 mMol/L (3.4-5.1); Sodium 135 mMol/L (136-145); Total Protein 5.8 gm/dL (5.7-8.2); eGFR 16 See Note
--- NOTE | 2025-03-09 08:00 | XR_ITS ---
EXAM: Ultrasound and fluoroscopic guided right nontunneled dialysis catheter placement. INDICATION: Needs hemodialysis. Fluoroscopy time: 1.2 minutes Dose: 6.7 mGy PROCEDURE: After discussion of risks and benefits informed consent was obtained. The patient was brought to the angiography suite and placed supine on the exam table. Ultrasound evaluation demonstrated the right IJ to be patent with a temporary dialysis catheter in place. Was targeted for dialysis catheter placement. The overlying skin was cleaned and draped in normal sterile surgical fashion. 20 cc of 1% lidocaine was used for local anesthesia. Using ultrasound guidance access to the right internal jugular vein was obtained with a micropuncture needle. A 0.018 wire was advanced through the needle into the SVC. The needle was withdrawn and a 5 Israeli exchange sheath was placed over the wire and the sheath was capped. Existing temporary right IJ dialysis catheter was removed with gentle traction. Pressure was held over the right IJ access site. Hemostasis was achieved. A 7 cm subcutaneous tunnel was created from the right IJ access site exiting at the upper anterior lateral right thorax. The 14 Israeli x 23 cm dual-lumen dialysis catheter was attached to the tunneling device and pulled through the tunnel exiting at the right IJ access site.. The existing right IJ sheath was accessed, the inner cannula was removed and a 0.035 wire was advanced through the sheath into the IVC. Sheath was removed. The tract was serially dilated and the 14 Israeli peel-away sheath was placed over the wire and the wire was removed. Catheter was passed through the peel-away sheath and the peel-away sheath was removed. The distal cath tip was appropriately positioned in the right atrium. Both ports flushed and aspirated easily and were filled with the appropriate amount of 1,000 : 1 heparinized saline. The catheter was sutured in place with 2-0 silk suture and covered with a sterile dressing.. The right IJ access site was sutured closed with a 2-0 silk suture and covered with a sterile dressing. There were no immediate complications. Patient tolerated the procedure well. IMPRESSION: Successful right IJ 14 Israeli x 23 cm dual-lumen dialysis catheter. Catheter is ready for use.
[2025-03-09 08:11] LABS: Reflex Lactate? Y
[2025-03-09] MEDS: ALBUMIN HUMAN-KJDA 25% IVPB 25 GM/100 ML BTL IV ×2 (08:44→10:30)
[2025-03-09] MEDS: MICONAZOLE NITRATE CR 2% 15 GM TUBE TOP ×2 (09:31→21:39)
[2025-03-09] MEDS: BALSAM PERU/CASTOR OIL (Venelex) 60 GM TUBE TOP ×2 (09:31→21:39)
[2025-03-09] MEDS: ACETAMINOPHEN SOL 325 MG/10 ML UDC NG ×2 (09:34→19:06)
[2025-03-09 09:37] LABS: Lactic Acid, 3 HR 2.7 mMol/L (0.4-2.0)
--- NOTE | 2025-03-09 10:13 | PD.INTPROG ---
Documentation for date of: 03/09/25 Subjective Subjective Interval history: This is a 70-year-old female who was admitted to the ICU for hyperkalemia and altered mental status. She has a history of Yoder cirrhosis. She had a dialysis catheter placed and underwent dialysis for her hyperkalemia. She tolerated well. There have been no acute overnight events. This morning she is awake alert oriented x 3 and appropriate. She is complaining of significant amount of pain. She states that the pain is everywhere . She is afebrile she has a decreased urinary output 03/04-yesterday afternoon/evening required reinstatement of her Levophed. Today she remains awake alert and communicative. There is a rectal tube in place for her liquid stool secondary to her lactulose. She has had a poor urinary output, she is afebrile. She has had 2 out of 2 bottles positive for GPC's and repeat blood cultures were sent 03/07-patient had originally been downgraded to the floor. She was doing well until yesterday. Yesterday she became more hypotensive. Rapid response was called. Despite 10 mg of midodrine and 25 g of albumin she was still hypotensive with a MAP in the 40s therefore the decision was made to bring her to the ICU. She was slightly confused at that point in time. She was brought to the ICU and a left femoral line was placed and she was started on Levophed. This morning she is currently on dialysis. She has significant stool output with a rectal tube in place. She is afebrile, minimal urinary output 03/08: s/p repeat Liver bx: c/w necrosis (NOT CIRRHOSIS) - necrosis is new compared to recent prior bx w/ steatosis. albumin was given Critical Care Note Critical care time (min.): 65 Exam Vital Signs Temp Pulse Resp BP Pulse Ox O2 Del Method O2 Flow Rate 98.2 F 87 20 109/53 L 91 L Nasal Cannula 4 03/09/25 09:27 03/09/25 10:08 03/09/25 09:27 03/09/25 10:08 03/09/25 09:27 03/09/25 08:01 03/09/25 09:27 FiO2 3 03/07/25 08:03 Narrative Exam GENERAL: critically and chronically ill, but not in severe distress HEENT: orally intubated, no epistaxis, moist mucous membranes, non icteric. atruamatic. RESPIRATORY: clear to auscultation anteriorly bilatetrally CARDIOVASCULAR: RRR, NL S1S2. No M/G/R. ABDOMEN: Soft non tender to palpation EXTREMITIES: 1+ peripheral pulses palpable, 2+ bl ue/le significant edema. SKIN: warm dry intact. see wound care pics NEURO: somnolent but convesant and appropriate; symmetric motor response to tactile stimuli. Physical Exam Completion Physical Exam Complete?: Yes Objective - Medical Education Manager Labs 03/09/25 04:50 03/09/25 04:50 Labs: Laboratory Results - last 24 hr 03/08/25 03/08/25 03/08/25 11:30 15:12 18:29 WBC RBC Hgb Hct MCV MCH MCHC RDW Std Deviation Plt Count Neut % (Auto) Lymph % (Auto) [place] % (Auto) Eos % (Auto) Baso % (Auto) Neut # (Auto) Lymph # (Auto) [place] # (Auto) Eos # (Auto) Baso # (Auto) Immature Gran # (Auto) Absolute Nucleated RBC Immature Gran % Nucleated RBC % PT INR APTT Sodium Potassium Chloride Carbon Dioxide Anion Gap BUN Creatinine Estim Creat Clear Calc eGFR BUN/Creatinine Ratio Glucose Calculated Osmolality Lactic Acid 3.0 H 2.9 H 3.8 H Calcium Corrected Calcium Phosphorus Magnesium Total Bilirubin AST ALT Alkaline Phosphatase Total Protein Albumin Globulin Albumin/Globulin Ratio Misc Test Result Blood Type Antibody Screen Blood Bank Wristband ID Blood Bank Comment 03/08/25 03/09/25 03/09/25 22:37 00:27 04:50 WBC 21.2 H RBC 3.83 L Hgb 12.0 Hct 38.9 MCV 102 H MCH 31.3 MCHC 30.8 L RDW Std Deviation 70.2 H Plt Count 66 L D Neut % (Auto) 71 Lymph % (Auto) 16 [place] % (Auto) 9 Eos % (Auto) 1 Baso % (Auto) 0 Neut # (Auto) 15.1 H Lymph # (Auto) 3.4 [place] # (Auto) 2.0 H Eos # (Auto) 0.2 Baso # (Auto) 0.1 Immature Gran # (Auto) 0.44 H Absolute Nucleated RBC 0.06 H Immature Gran % 2 H Nucleated RBC % 0 PT 16.1 H INR 1.6 H APTT 39.3 H Sodium 135 L Potassium 4.1 Chloride 96 L Carbon Dioxide 27.0 Anion Gap 12 BUN 24 H Creatinine 3.0 H Estim Creat Clear Calc 23.9 L eGFR 16 L BUN/Creatinine Ratio 8 L Glucose 83 D Calculated Osmolality 273 L Lactic Acid 3.2 H 2.9 H 3.4 H Calcium 8.8 Corrected Calcium 9.4 Phosphorus 4.0 Magnesium 2.1 Total Bilirubin 4.7 H D AST 158 H ALT 7 L Alkaline Phosphatase 301 H Total Protein 5.8 Albumin 3.2 L Globulin 2.6 Albumin/Globulin Ratio 1.2 Misc Test Result Platelets confirmed Blood Type O Positive Antibody Screen NEGATIVE Blood Bank Wristband ID Yes Blood Bank Comment FFP Ready 03/09/25 09:10 WBC RBC Hgb Hct MCV MCH MCHC RDW Std Deviation Plt Count Neut % (Auto) Lymph % (Auto) [place] % (Auto) Eos % (Auto) Baso % (Auto) Neut # (Auto) Lymph # (Auto) [place] # (Auto) Eos # (Auto) Baso # (Auto) Immature Gran # (Auto) Absolute Nucleated RBC Immature Gran % Nucleated RBC % PT INR APTT Sodium Potassium Chloride Carbon Dioxide Anion Gap BUN Creatinine Estim Creat Clear Calc eGFR BUN/Creatinine Ratio Glucose Calculated Osmolality Lactic Acid 2.7 H Calcium Corrected Calcium Phosphorus Magnesium Total Bilirubin AST ALT Alkaline Phosphatase Total Protein Albumin Globulin Albumin/Globulin Ratio Misc Test Result Blood Type Antibody Screen Blood Bank Wristband ID Blood Bank Comment Assessment & Plan Additional Assessment Additional Assessment: SHOCK HEPATIC NECROSIS (on path) ATN - on HD MORBID OBESITY PERIHEPATIC FLUID SUSPECTED PNEUMONIA POOR WOUND HEALING HYPOTHYROIDISM shock: multifactorial - was hypotensive at [facility] - has multiple offending medications. however, she remains hypotensive in shock and cryptic infx dz source is suspected pt has perihepatic fluid collection that is new and not noted on recent MRI abd - d/w Radiology and while this does not have a strong appearance of an infected fluid collection - i still feel we should analyze the fluid. increasing productive cough w/ basilar infiltrates noted on empiric abx will send for hepatic drain - orders for specimen w/u placed ddx for hepatic necrosis: Infx dz/ vasculitis not likely as 12/21 ANCA labs negative/ hepatic serologic injury patter is inconsistent with shock liver, no vascular lesions were IDd on extensive prior imaging. levo dose is higher - but she is on HD leukocytosis trending higher - also worrisome and supportive of cryptic infx dz source will add vasopressin if necessary attempt a line today given cuff pressures are being taken at level of wrist. TOTAL CC TIME:45 MIN I saw and evaluated the patient. I reviewed the resident?s note and agree with findings and plan as documented in the resident?s note. Upon my evaluation, this patient had a high probability of imminent or life-threatening deterioration due to persistent shock, which required my direct attention, intervention, and personal management. This time is exclusive of time spent on procedures, which are documented separately if performed. Provider Notation Provider Notation: Although this document has been carefully reviewed, there may still be some phonetic and other typographical errors. These errors are purely grammatical due to imperfections in the software program and should not be construed in any way to compromise the substance of the patient's medical care during this visit. Thank you for the opportunity and privilege in assisting you with this patient's care and management.
--- NOTE | 2025-03-09 11:48 | PC.SS ---
rounding note: Patient remains in ICU as a tele overflow. Patient on emergency dialysis. Liver biopsy completed yesterday.
--- NOTE | 2025-03-09 12:45 | XR_ITS ---
EXAM: CT-guided right upper quadrant drain placement. DATE: 03/09/2025, 1:40 p.m. CTDI: 63 DLP: 14.61 INDICATION: Perihepatic fluid. PROCEDURE: After discussion of risks and benefits informed consent was obtained. The patient was brought to the CT scanner and placed supine on the exam table. Preliminary noncontrast enhanced CT was performed which demonstrated perihepatic fluid extending into the right paracolic gutter. This was targeted for drain placement. Skin overlying the right lateral upper quadrant was cleaned and draped in normal sterile surgical fashion. 10 cc of 1% lidocaine was used for local anesthesia. Conscious sedation was begun with direct continuous nursing supervision. Using CT guidance an 18-gauge Chiba needle was sequentially advanced into the targeted fluid collection. Clear reddish fluid was obtained. A 0.035 wire was advanced through the needle and the needle was withdrawn. 8 Bangladeshi pigtail drainage catheter was placed over the wire and the wire was removed. Catheter was sutured in place, covered with a sterile dressing and attached to accordion bag drainage. Post catheter placement CT was performed which demonstrated appropriate positioning of the distal catheter tip. Patient tolerated the procedure well without evidence of complications. IMPRESSION: Successful right upper quadrant 8 Bangladeshi pigtail drainage catheter placement as above.
[2025-03-09] MEDS: MIDAZOLAM INJ 1 MG/ML VIAL 2 ML IVP (13:42)
[2025-03-09] MEDS: fentaNYL CIT INJ 50 mCg/ML AMP 2ML 150 MCG IVP (13:42)
[2025-03-09] MEDS: LIDOCAINE INJ PF 1% 30 ML VIAL 20 ML EPID (13:46)
--- NOTE | 2025-03-09 14:04 | PD.INTPROC ---
PROCEDURES: Procedure Date / Time 03/09/25 1401 Arterial Line Indication(s): shock Informed consent obtained: from patient Time out done, and the following verified: correct patient, side and site, procedure and patient position Technique used: direct puncture technique Post-Procedure: line sutured into place and dry sterile dressing placed Patient tolerated procedure: well and no complications EBL(ml): 2 Complications: none Site: right and radial Procedure comment: risks benefits and alterantives discussed she agreed to consent to procedure after questions answered
[2025-03-09] MEDS: LIDOCAINE INJ PF 1% 30 ML VIAL 17 ML EPID (14:43)
[2025-03-09] MEDS: HEPARIN SOD LOCK SYR 100 UNIT/ML 500 UNIT STFIELD (14:43)
[2025-03-09] MEDS: HEPARIN SOD INJ 1000 UNIT/ML VIAL 10 ML 3500 UNIT INDWELLCAT (14:43)
[2025-03-09 15:28] LABS: Vancomycin,Random 25.5 mcg/mL
--- NOTE | 2025-03-09 15:47 | PC.DIETICIAN ---
Nutrition recommendations If oral intake is feasible: Renal, Dys Mech Altered Nepro 240ml BID with lunch and dinner (mixed díaz). If EN is within plan of care: Nepro at 20 ml/hr via OG/NG tube by pump. Advance 10 ml every 8 hrs to goal rate of 40 ml/hr x 24 hrs. If no IV fluids, water flushes of 25 ml/hr (or per MD). Provides: 1728 kcal, 78 g prot, 697 ml free water, 960 ml total volume.
[2025-03-09] MEDS: GABAPENTIN 100 MG CAPSULE 200 MG NG ×2 (15:53→21:38)
[2025-03-09] MEDS: LACTULOSE SYRUP 20 GM/30 ML UDC 10 GM PO ×2 (15:53→21:40)
[2025-03-09] MEDS: ceFAZolin/D5W 2 GM IV 2 GM/100 ML BAG IV ×2 (15:59→21:39)
[2025-03-09] MEDS: VASOPRESSIN IN NS IVPB 20 UNIT/100 ML BAG 9 UNIT IV (17:39)
[2025-03-09] MEDS: Norepinephrine/D5W 8mg/250ml 8 MG/250 ML BAG 51.777 MG IV (20:39)
[2025-03-09] MEDS: LIDOCAINE 5% 1 PATCH TOP (21:15)
--- NOTE | 2025-03-09 23:10 | ESPR_ITS ---
RE: KOMAL GARCIA : 1955 DATE OF SERVICE: 03/09/2025 HISTORY OF PRESENT ILLNESS: Briefly, she is a 70-year-old woman with past medical history significant for hypertension, fatty liver, hypothyroidism, obesity, stage IV-V CKD, and now most likely ESRD, whose baseline serum creatinine was around 1.2-2.8 mg per dL since 12/2024 who presented to the hospital on 03/01/2025 with altered level of consciousness, leukocytosis, and was found with elevated ammonia level and lactic acidosis. Patient was dialyzed since she was admitted. She was successfully transferred out from ICU initially, then went back to ICU again due to low blood pressures. Last dialysis was today, about 2.7 liters of fluid was removed. She is awake, coherent. Patient also has a history of Staphylococcus hominis bacteremia, on IV Ancef. She had a liver biopsy yesterday and the result is still pending. CURRENT MEDICATIONS: 1. Cefazolin 2 grams IV. 2. Fentanyl. 3. Gabapentin. 4. Heparin. 5. Midodrine 10 mg p.o. q. 6. 6. Vasopressin p.r.n. PHYSICAL EXAMINATION: General: She is awake, alert, oriented. Vital Signs: Blood pressure 130/80, heart rate of 90, O2 sat of 97% on 4 liters of nasal cannula. HEENT: Anicteric sclerae. Normocephalic. Neck: Supple, JVD. Chest and Lungs: Symmetric expansion, clear breath sounds. Cardiac: Without murmur. Abdomen: Soft, nontender. Extremities: No edema. LABORATORY DATA: Hemoglobin 12, WBC 21,200, platelet count 66,000. Sodium 135, potassium 4.1, chloride 96, CO2 of 27, BUN 24, creatinine 3. Lactic acid 3.4, now 2.7. Total bilirubin is 4.7. AST 158, ALT 7, alkaline phosphatase 301. Albumin 3.2. INR 1.6. ASSESSMENT: 1. Oliguric acute kidney injury, initially thought as secondary to acute tubular necrosis, following hemodynamic instability, hypoperfusion, hypotension on advanced chronic kidney disease. Also may have type 1 hepatorenal syndrome given a recent serum urine sodium of less than 15. Status post liver biopsy yesterday. 2. Lactic acidosis secondary to hypoperfusion and combination of kidney and liver failure. 3. Obesity. 4. Staphylococcus hominis bacteremia and septicemia. 5. Liver insufficiency. PLAN: Patient had dialysis today, about 2.7 liters of fluid was removed. Patient is scheduled for another dialysis tomorrow to address her lactic acidosis. Continue IV Ancef. Waiting for the result of her liver biopsy. DT: 22:32:49 TT: 23:09:00 Ref: [id number] - TID: [id number] [facility]
[2025-03-10] VITALS (98 sets, daily range): BP systolic 101–137; BP diastolic 42–59; PULSE 74–95; RESP 13–34; TEMP 36.3–37.2; O2SAT 93–99
[2025-03-10] MEDS: Norepinephrine/D5W 8mg/250ml 8 MG/250 ML BAG 51.777 MG IV ×2 (01:44→06:30)
[2025-03-10] MEDS: VASOPRESSIN IN NS IVPB 20 UNIT/100 ML BAG 9 UNIT IV ×2 (01:52→12:15)
[2025-03-10 04:21] LABS: Peritoneal Fluid Appearance Hazy; Peritoneal Fluid Color Yellow
[2025-03-10 04:26] LABS: Peritoneal Fluid WBC 504 /cmm
[2025-03-10 04:28] LABS: RBC,Peritoneal Fluid 9000 /cmm
[2025-03-10 04:29] LABS: Peritoneal Fluid Mononuclear 50 %; Peritoneal Fluid Polynuclear 50 %
[2025-03-10 04:45] LABS: Albumin, Peritoneal Fluid 1.6 gm/dL; Glucose,Peritoneal Fluid 92 mg/dL; LDH,Peritoneal Fluid 351 IU/L; Protein Total,Peritoneal Fluid 3 g/dL
--- NOTE | 2025-03-10 05:00 | XR_ITS ---
EXAMINATION: AP chest single view TECHNIQUE: AP portable semiupright chest single view Date and time: 2024, 0515 hours, comparison March 09, 2025 INDICATIONS: Difficulty breathing this week. FINDINGS: Mild enlargement cardiac contour Moderate vascular congestion Subsegmental atelectasis left base No current pneumonia Right internal jugular dialysis catheter tip satisfactory position Orogastric tube in the stomach, the tip is below the level of the film IMPRESSION: Moderate vascular congestion No current pneumonia
[2025-03-10] MEDS: GABAPENTIN 100 MG CAPSULE 200 MG NG (05:37)
[2025-03-10] MEDS: LEVOTHYROXINE SODIUM 125 MCG, LEVOTHYROXINE SODIUM 25 MCG 150 MCG PO (05:37)
[2025-03-10] MEDS: LACTULOSE SYRUP 20 GM/30 ML UDC 10 GM PO (05:38)
[2025-03-10 06:29] LABS: Basophils # (Auto) 0.1 Thou/mm3 (0.0-0.2); Basophils % (Auto) 1 % (0-2.5); Eosinophils # (Auto) 0.1 Thou/mm3 (0.0-0.5); Eosinophils % (Auto) 1 % (0-10); Hematocrit 37.9 % (36.0-46.0); Hemoglobin 11.7 g/dL (12.0-16.0); Immature Granulocytes Auto 0.40 Thou/mm3 (0.00-0.00); Lymphocytes # (Auto) 2.8 Thou/mm3 (1.0-4.8); Lymphocytes % (Auto) 13 % (10-50); Mean Corpuscular HGB Conc 30.9 g/dl (31.0-37.0); Mean Corpuscular Hemoglobin 31.3 pg (25.0-35.0); Mean Corpuscular Volume 101 fL (80-100); Monocytes # (Auto) 1.9 Thou/mm3 (0.0-0.8); Monocytes % (Auto) 9 % (0-12); Neutrophils # (Auto) 16.0 Thou/mm3 (1.8-7.7); Neutrophils % (Auto) 75 % (37-80); Nucleated Red Blood Cell # 0.04 Thou/mm3 (0.00-0.00); Nucleated Red Blood Cell % 0 /100 WBC (0); RDW Standard Deviation 71.8 fL (36.4-46.3); Red Blood Count 3.74 Miln/mm3 (4.00-5.20); White Blood Count 21.3 Thou/mm3 (3.6-11.0)
[2025-03-10 06:30] LABS: Platelet Count 59 Thou/mm3 (140-440)
[2025-03-10 06:31] LABS: INR 1.6 (0.9-1.3); Partial Thromboplastin Time 43.1 Seconds (22.0-36.0); Prothrombin Time 16.8 Seconds (9.0-12.2)
[2025-03-10 06:34] LABS: Slide Review Platelets confirmed
[2025-03-10 06:42] LABS: Alanine Aminotransferase < 7 U/L (10-49); Albumin, Serum 3.4 gm/dL (3.4-4.8); Albumin/Globulin Ratio 1.3 (1.2-2.2); Alkaline Phosphatase 307 U/L (46-116); Anion Gap 14 (7-16); Aspartate Amino Transferase 126 U/L (0-34); BUN/Creatinine Ratio 8 Ratio (12-20); Bilirubin,Total 5.9 mg/dL (0.3-1.2); Blood Urea Nitrogen 21 mg/dL (9-23); Calcium 9.2 mg/dL (8.3-10.6); Calcium (Corrected) 9.7 mg/dL (8.5-10.1); Carbon Dioxide 25.1 mMol/L (20.0-31.0); Chloride 95 mMol/L (98-107); Creatinine (Component) 2.8 mg/dL (0.6-1.3); Estimated Creatinine Clearance 25.0 mL/min (>60); Globulin 2.7 gm/dL (2.3-3.5); Glucose 96 mg/dL (74-106); Magnesium 2.0 mg/dL (1.6-2.6); Osmolality,Calculated 271 (275-295); Phosphorous 3.8 mg/dL (2.4-5.1); Potassium 3.9 mMol/L (3.4-5.1); Sodium 134 mMol/L (136-145); Total Protein 6.1 gm/dL (5.7-8.2); eGFR 18 See Note
[2025-03-10] MEDS: GABAPENTIN 100 MG CAPSULE NG (08:00)
[2025-03-10] MEDS: BALSAM PERU/CASTOR OIL (Venelex) 60 GM TUBE TOP ×2 (08:03→21:30)
[2025-03-10] MEDS: MICONAZOLE NITRATE CR 2% 15 GM TUBE TOP ×2 (08:03→21:30)
[2025-03-10] MEDS: ALBUMIN HUMAN-KJDA 25% IVPB 25 GM/100 ML BTL IV ×3 (08:52→09:45)
[2025-03-10] MEDS: ceFAZolin/D5W 2 GM IV 2 GM/100 ML BAG IV (08:57)
[2025-03-10 10:24] LABS: Procalcitonin 7.50 ng/ml (0.0-0.49)
--- NOTE | 2025-03-10 10:27 | PC.SS ---
SS update: Patient remains in ICU as a tele overflow, possible higher level of care
[2025-03-10] MEDS: PIPER/TAZO 3.375 GM PREMIX 3.375 GM/50 ML BAG IV ×2 (10:37→17:55)
[2025-03-10] MEDS: Norepinephrine/D5W 8mg/250ml 8 MG/250 ML BAG 32.052 MG IV (12:15)
--- NOTE | 2025-03-10 13:31 | XR_ITS ---
Examination: Chest, AP, portable, single view post procedure. Technique: Chest, AP upright, portable, single view Date and time: 03/10/2025 1:44 p.m. Comparison: Earlier today FINDINGS: Cardiac silhouette remains enlarged with pulmonary vascular congestion. No significant interval change. No pneumothorax. Stable right-sided IJ central venous catheter and feeding tube. No pneumothorax. Possible cortical irregularity right humeral head IMPRESSION: Stable moderate pulmonary vascular congestion. Possible cortical irregularity right humeral head. If bony abnormality is suspected recommend plain film evaluation of the shoulder.
[2025-03-10] MEDS: HYDROcodone/APAP 5/325 TABLET 1 TAB NG (14:20)
[2025-03-10] MEDS: GABAPENTIN 300 MG CAPSULE NG (14:20)
--- NOTE | 2025-03-10 14:22 | ESOP_ITS ---
<Statement entered by Francine Duran MD - 03/11/25 10:38> I was present for the critical and reyes portions of the procedure and was immediately available to provide assistance. PROCEDURES: Procedure Date / Time 03/10/25 1230 Procedural Time Out Time out performed: 1230 Central Line Placement Left IJ: Indication(s): poor, or inadequate peripheral venous access (fem line with c/f infection given body habitus and location between skin folds.) Informed consent obtained: obtained from surrogate decision maker (from ) Time out done, and the following verified: correct patient, side and site, procedure, patient position and implants and/or equipment Patient placed on monitor/pulse ox: Yes Hand Hygiene: soap & water Max Sterile Barrier Techniques used: cap, mask, sterile gown, sterile gloves and sterile full body drape Central line prep: Chlorhexidine scrub Local anesthesia used: lidocaine 1% Amount of anesthesia used (mL): 5 Ultrasound used for placement: Yes Sterile Technique if Ultrasound used, including sterile gel: yes Central line lumen inserted: triple Post procedure x-ray: other EBL(ml): 10 Procedure comment: A time out was performed. My hands were washed immediately prior to the procedure. I wore a surgical cap, mask with protective eyewear, full gown and sterile gloves throughout the procedure. The patient was not placed in Tr endelenburg position due to her body habitus and increased abdominal pain when layed flat. Her L IJ was visualized to be plethoric when instructed to inhale.The Left neck was prepped using chlorhexidine scrub and draped in sterile fashion using a three quarter sheet drape and sterile towels. Skin preparation was allowed to dry prior to skin puncture. Anatomic landmarks were identified. Anesthesia was achieved over the vein using 1% lidocaine. Using real-time ultrasound, with sterile probe cover and sterile gel, the introducer needle was inserted into the vein under direct ultrasound visualization. Venous blood was withdrawn. The syringe was removed and a guidewire was advanced into the introducer needle. The guidewire was visualized in the appropriate vein by ultrasound. A small incision was made at the skin surface with a scalpel and the introducer needle was exchanged for a dilator over the guidewire. After appropriate dilation was obtained, the dilator was exchanged over the wire for an [antimicrobial coated] triple lumen central venous catheter. There were multiple attempts to advance the catheter over the wire, however on each attempt, the catheter met resistance and was unable to be hubbed at the neck. A 16 cm and a 20 cm catheter were attempted to be advanced over the wire, but attempts were unsuccessful. Patient endorsed feeling increased pressure when attempting to advance the catheter more. Suspect that increased resistance upon advancement of the catheter was secondary to the HD line that she has on her R chest. Pressure was applied at the neck where the attempts for a central line were placed, and 4x4 was [address]. Post-procedure chest x-ray : no pneumothorax. Case disclosed with my Attending Dr. Renee Moore MD PGY1 ?
[2025-03-10] MEDS: ALBUMIN HUMAN 5% IVPB 12.5 GM/250 ML BTL IV ×2 (15:20→20:39)
--- NOTE | 2025-03-10 15:58 | ESPR_ITS ---
<Statement entered by Francine Durna MD - 03/11/25 12:04> TOTAL CC TIME: MIN I saw and evaluated the patient. I reviewed the resident?s note and agree with findings and plan as documented in the resident?s note. Upon my evaluation, this patient had a high probability of imminent or life- threatening deterioration due to distributive shock, which required my direct attention, intervention, and personal management. This time is exclusive of time spent on procedures, which are documented separately if performed. Remains on vasopressin and Levophed. Continue albumin [id number]. Most likely etiology remains hepatocellular necrosis due to underlying hepatocellular carcinoma complicated by cryptic infection. Discussed with [facility] hepatology team, they are interested in reviewing films and we are trying to push our PACS films to their system. Unfortunately patient is not likely to benefit from a transfer given her severe deconditioned state, and current reliance on pressors. Continue hemodialysis. Follow-up all culture results including peritoneal fluid. Documentation for date of: 03/10/25 Subjective Subjective Interval history: Pt examined at bedside today. No acute overnight events. Pt reports having some worsening abdominal pain that is diffuse that is new and is also having some back pain. She is inquiring about how her liver is doing. She is also stating she feels a bit anxious in regards to her health. She is agreeable to getting a central line placement. After multiple attempts at central line placement in [facility], line could not be placed (see operative report). No other complaints at this time. Exam Vital Signs Temp Pulse Resp BP Pulse Ox O2 Del Method O2 Flow Rate 98.9 F 85 29 H 101/53 L 95 Nasal Cannula 4 03/10/25 12:00 03/10/25 13:15 03/10/25 13:15 03/10/25 12:15 03/10/25 13:15 03/10/25 04:00 03/10/25 06:25 FiO2 3 03/07/25 08:03 Narrative Exam General: AAOx3, in mild distress, wearing glasses, morbidly obese HEENT: Mucous membranes dry, conjuctiva normal, PERRLA, Cardiovascular: S1, S2, radial pulses +2 bilat, RRR, R TDC present Pulmonary: Difficulty appreciating breath sounds GI: Abdomen slightly distended, R hepatic drain present and draining seroanginous fluid, tenderness throughout abdominal quadrants, Extremities: Anasarca, dorsalis pedis pulses +2 bilaterally. Normal perfusion. Neuro: AAOx3, no gross focal neurological deficits Skin: Right inguinal fold shows non-draining ulcer that does not appear to be infected at this time, however it appears to be about 2 cm deep and 0.5 -1.0 cm in circumference, multiple areas of purpura throughout right side of abdomen from fall. Superficial sacral pressure lesions 2-3cms in circumference. Objective Labs 03/10/25 04:48 03/10/25 04:48 Labs: Laboratory Results - last 24 hr 03/09/25 03/10/25 17:35 04:48 WBC 21.3 H RBC 3.74 L Hgb 11.7 L Hct 37.9 MCV 101 H MCH 31.3 MCHC 30.9 L RDW Std Deviation 71.8 H Plt Count 59 L Neut % (Auto) 75 Lymph % (Auto) 13 Lee % (Auto) 9 Eos % (Auto) 1 Baso % (Auto) 1 Neut # (Auto) 16.0 H Lymph # (Auto) 2.8 Lee # (Auto) 1.9 H Eos # (Auto) 0.1 Baso # (Auto) 0.1 Immature Gran # (Auto) 0.40 H Absolute Nucleated RBC 0.04 H Immature Gran % 2 H Nucleated RBC % 0 PT 16.8 H INR 1.6 H APTT 43.1 H Sodium 134 L Potassium 3.9 Chloride 95 L Carbon Dioxide 25.1 Anion Gap 14 BUN 21 Creatinine 2.8 H Estim Creat Clear Calc 25.0 L eGFR 18 L BUN/Creatinine Ratio 8 L Glucose 96 Calculated Osmolality 271 L Calcium 9.2 Corrected Calcium 9.7 Phosphorus 3.8 Magnesium 2.0 Total Bilirubin 5.9 H D AST 126 H ALT < 7 L Alkaline Phosphatase 307 H Total Protein 6.1 Albumin 3.4 Globulin 2.7 Albumin/Globulin Ratio 1.3 Procalcitonin 7.50 H Peritoneal Color Yellow Peritoneal Appearance Hazy Peritoneal WBC 504 Peritoneal RBC 9000 Periton Polynucl WBCs 50 Periton Mononucl WBCs 50 Peritoneal Tot Protein 3 Peritoneal Albumin 1.6 Peritoneal LDH 351 Peritoneal Glucose 92 Misc Test Result Platelets confirmed ABG Interpretation ABG results: 03/01/25 03/01/25 03/02/25 09:05 16:01 04:53 ABG pH 7.37 7.33 L 7.44 D ABG pCO2 34 34 35 ABG pO2 99 99 82 L ABG HCO3 20 18 L 24 ABG O2 Saturation 99 H 98 97 ABG Base Excess -5 L -7 L 0 VBG pH VBG pCO2 VBG pO2 VBG Base Excess 03/02/25 03/03/25 03/04/25 08:43 04:28 05:02 ABG pH 7.48 H 7.40 7.42 ABG pCO2 29 L 40 D 42 ABG pO2 130 H D 75 L D 54 L* D ABG HCO3 22 25 27 H ABG O2 Saturation 100 H 96 90 L ABG Base Excess -1 0 2 VBG pH VBG pCO2 VBG pO2 VBG Base Excess 03/05/25 03/06/25 03/06/25 16:21 14:49 16:43 ABG pH 7.40 7.36 ABG pCO2 44 49 H ABG pO2 69 L 68 L ABG HCO3 27 H 28 H ABG O2 Saturation 96 95 ABG Base Excess 2 1 VBG pH 7.38 VBG pCO2 44 VBG pO2 76 H VBG Base Excess 1 03/07/25 03/08/25 04:38 05:25 ABG pH 7.36 7.37 ABG pCO2 48 47 ABG pO2 64 L 63 L ABG HCO3 27 H 27 H ABG O2 Saturation 94 94 ABG Base Excess 1 1 VBG pH VBG pCO2 VBG pO2 VBG Base Excess Quality Measures Quality Measures VTE prophylaxis Advance care planning discussed with:: patient Assessment & Plan Assessment Current Active Medications: Generic Name Dose Route Start Last Admin Trade Name Freq PRN Reason Stop Dose Admin Acetaminophen 325 mg 03/08/25 09:46 03/09/25 19:06 Acetaminophen Rosario 325 Mg/10 Ml Udc NG 04/07/25 09:45 325 mg Q6HR PRN Administration FEVER >100.4 OR PAIN 1-3 Albuterol/Ipratropium 3 ml 03/04/25 07:03 03/06/25 15:26 Albuterol/Ipratropium (Duoneb) Rt Rosario 3 Ml Nebu INH 03/31/25 14:59 3 ml Q4HRRT PRN Administration wheeze Artificial Tears 0 drop 03/02/25 08:48 03/07/25 08:32 Artificial Tears 225 Drop/15 Ml Btl BOTH EYES 04/01/25 08:47 2 drops PRN PRN Administration TO KEEP EYES MOIST Balsam Fowler/[place] Oil 0 gm 03/06/25 21:00 03/10/25 08:03 Balsam Fadumo/[place] Oil (Venelex) 60 Gm Tube TOP 04/05/25 20:59 1 applicatio BID RAMON Administration Fentanyl Citrate 25 mcg 03/10/25 14:37 Fentanyl Cit Inj 50 Mcg/Ml Amp 2ml IVP 03/15/25 14:36 Q3HR PRN pain Heparin Sodium (Porcine) 3,100 unit 03/01/25 18:45 03/08/25 16:33 Heparin Sod Inj 1000 Unit/Ml Vial 10 Ml INDWELLCAT 03/15/25 18:44 3,100 unit X1 PRN Administration DIALYSIS Norepinephrine/Dextrose 8 mg in 250 mls @ 12.328 mls/hr 03/06/25 15:58 03/10/25 12:15 Levophed In D5w 8mg/250ml IV 04/05/25 15:57 0.13 mcg/kg/min .[id number] PRN 32.052 mls/hr PER PROTOCOL Administration Protocol 0.05 MCG/KG/MIN Albumin Human 25 gm in 100 mls @ 0 mls/hr 03/09/25 10:00 03/09/25 10:30 Albuminex 25% Ivpb IV 300 mls/hr Q30MIN PRN Administration To maintain SBP>90 Per Protocol Vasopressin/Sodium Chloride 20 unit in 100 mls @ 9 mls/hr 03/09/25 13:05 03/10/25 12:15 Vasostrict/Ns Ivpb IV 04/08/25 13:04 0.03 unit/min .Q11H7M PRN 9 mls/hr PER PROTOCOL Administration Protocol 0.03 UNIT/MIN Piperacillin/Tazobactam/Dextrose 3.375 gm in 50 mls @ 100 mls/hr 03/10/25 09:41 03/10/25 12:58 Zosyn IV 03/17/25 09:40 Not Given Q6HR RAMON Protocol Albumin Human 12.5 gm in 250 mls @ 100 mls/hr 03/10/25 14:45 03/10/25 15:20 Albuminar-5 Ivpb IV 03/14/25 14:44 100 mls/hr Q6H RAMON Administration Levothyroxine Sodium 125 mcg/ 150 mcg 03/05/25 06:00 03/10/25 05:37 Levothyroxine Sodium 25 mcg PO 04/04/25 05:59 150 mcg ACBR RAMON Administration Lidocaine 1 patch 03/02/25 11:57 03/09/25 21:15 Lidocaine 5% 1 Patch TOP 04/01/25 11:56 1 patch UD PRN Administration localized pain Protocol Miconazole Nitrate 0 gm 03/02/25 12:00 03/10/25 08:03 Miconazole Nitrate Cr 2% 15 Gm Tube TOP 04/01/25 11:59 1 applicatio BID RAMON Administration Midodrine 10 mg 03/07/25 09:29 03/07/25 10:17 Midodrine 5 Mg Tablet PO 04/03/25 09:59 10 mg Q6H PRN Administration MAP less than 65 Ondansetron HCl 4 mg 03/01/25 14:01 Ondansetron Inj 2 Mg/Ml Inj 2 Ml IVP 03/31/25 14:00 Q6H PRN NAUSEA OR VOMITING Protocol Pharmacy Consult 1 each 03/09/25 13:04 Pharmacy Renal Dose Adjustment 1 Ea XX 04/08/25 13:03 PRN PRN CONSULT Sodium Chloride 3 ml 03/01/25 11:02 Sodium Chloride Rt Rosario 0.9% 3 Ml Nebu INH 03/31/25 11:01 PRN PRN SOLN Plan Assessment: 70-year-old female with a history of chronic kidney disease (CKD), cirrhosis, hypothyroidism, recent giardia infection, and chronic back pain (oxy q4), was recently admitted with severe hyperkalemia (K 7.1), KADI, and generalized weakness, who presented from [facility] due to encephalopathy. Bounced back to ICU due to shock/refractory hypotension requiring pressor support. Evaluating patient for worsening liver function and unknown source of infection. 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 diff, Lactic acid RX Resuming lactulose, continuing rifaximin CV #Shock Ddx distributive most likely in the setting of decompensated liver cirrhosis, less likely renal failure, however patient does have Liver necrosis at this time. 03/02/2025 ECHO LVEF 50-55%. Mild mitral valve regurgitation, mild tricuspid regurgitation EKG HR 78 QTc 452 NV 200 QRSd 122 Dx Repeat blood cultures negative liver bx:___, urine cx: no growth Rx: Levofed: 0.11, CTCAP w/con: resulted -Repeat blood cx repeat urinalysis, C diff -Zosyn at this time RRx: If necrosis or function of liver worsens PULM - Bilateral pleural effusions, atelectasis vs PNA at lung base #Acute on Chronic Hypoxic Hypercapnic Respiratory Failure, resolved Underlying respiratory acidosis with adequate metabolic compensation DDX OHS, atelectasis, COPD, CHF Dx CXR, CTAP RX ISS, duonebs, Nasal cannula RRX - working so far, no respiratory failure in ICU GI #Abdominal Pain, worsening #Necrosis of Liver #Perihepatic fluid, s/p hepatic drain DDX: Malignancy of liver, intra-abdominal infection, SBP. MRCP did not show intra or extra hepatic stones, CBD dilatation. Repeat liver bx shows tissue necrosis, however no malignancy. Due to persistent lactic acidosis, and pressor requirement, pt likely has a underlying malignancy, despite negative liver biopsies. Pt would benefit from hepatology consult from a outside facility for further workup, however, multiple liver lesions and further compensation of liver function likely fits differential of malignancy of liver. AFP negative, CA 19-9 pending, Hepatitis Panel Negative. Pending other cultures of perihepatic fluid (SAAG 1.9), however cytology to be done due to concern for malignant ascites. Dx CXR, CTAP RX Initiated Hepatology transfer, continue with hepatic drain, follow up with Cultures of body fluid, Follow up Fluid cytology RRX - If pt's liver necrosis worsens #Decompensated Liver Disease #HX of MYERS, confirmed with bx MELD NA: 30, Child Spicer:10-11 Complicated by enlarging liver mass seen on MRI. Ddx As above Dx As above Rx Will remove lactulose, Rifaximin, and rectal tube at this time. Continue trending CMP #Major ileus, resolved NGT in place #Transaminitis - stable/persistent ddx MYERS, worsening liver disease Plan: -CTM LFTs #Hyperbilirubinemia - worsening T Bili 1.2 --> 2.8 --> 3.5 Most likely in the setting of worsening liver function with lobulated large malignant neoplasm seen on MRCP. Normal gallbladder. Recent abd US showed no stones. No fever, no jaundice seen. Plan: -CTM for abdominal pain when patient is more oriented. -FUP CT bx RENAL #KADI on CKD stage IIIB - Anuric DDx most likely 2/2 ATN, hypertension, patients A1C 5 BUN 102 Cr 3.7 Dx urine lytes ordered RX Nephro consulted (Dr. Mccauley) HDS #HAGMA with underlying metabolic alkalosis Ddx lactic acidosis, renal failure, uremia HCO3 25, pH 7.37 pCO2 47--> Rubio PCO2= 45.5+/- 2 Delta-Delta, (15-12)/(25-24)= 3 Rx HDS #ATN? Ddx hypotension and poor perfusion from antihypertensives, narcotics, and muscle relaxers Dx Dr. Mccauley consulted urine sodium >15 Rx HDS #Hypokalemia - resolved K 3.0 most likely secondary to renal failure. Plan: -Replete as necessary. #Hyperkalemia - Resolved Ddx KADI on CKD Plan: -CTM with repeat renal panels -Kayexelate -Insulin -Calcium gluconate No active problems ENDO #Subclinical hypothyroidism #Hx of Hypothyroidism TSH 8.58, actually much improved from most recent admission. Plan: -re-evaluate thyroid functioning in 6 weeks outpatient following thyroid medication changes HEME #Leukocytosis DDx most likely reactive to stress, could be 2/2 infection procal elevated, UA dirty Plan: -Repeat UA -Trend WBC -Zosyn #Lactic Acidosis, improving Ongoing lactic acidosis complicated by poor clearance in the setting of liver failure/malignancy. Plan -CTM -IVF when patient is no longer volume overloaded. -FUP CT bx DERM #Skin shearing/pressure wound Patient has inguinal crease wound 0.5-1.0cm in depth, packed, not weeping or oozing. Another superifical inguinal surface wound. Sacral superifical presure wound. Skin dehisces on traction Dx fall one month ago, steroid decreases skin strength, poor wound healing Rx wound care ID #Unknown source of infection? Patient lactic acid is persistent. Inguinal wound source appears unlikely due to no signs of infection. Possibly due to hidden abscess? Plan: -F/u with cultures #ICU Health maintenance Mechanical ventilation: None Sedation: None Diet: NPO DVT prophylaxis: Heparin GI prophylaxis: None Falcon: Yes Lines: PIV, L femoral Antibiotics: Zosyn CODE STATUS: Full Patient seen and care discussed with my attending physician, Dr. Renee Mejia, PGY-2 This document was transcribed using voice recognition technology. Minor inaccuracies may be present.
--- NOTE | 2025-03-10 16:15 | PC.CC ---
Addendum entered by Katia Hathaway RN 03/10/25 19:19: spoke to ICU YVETTE Interiano, hand off report given Addendum entered by Katia Hathaway RN 03/10/25 19:11: transfer packet created and left on the transfer nurse desk. Addendum entered by Katia Hathaway RN 03/10/25 19:10: 1835: Carlos pitts/ [facility] called back requesting additional images. Uploaded u/s retroperitoneum, u/s gb, & mrcp. He informed the chemistry department chair has spoken to Dr. Duran once already. Addendum entered by Katia Hathaway RN 03/10/25 19:08: 1744: received call back from Kike pitts/ [facility] TC, declined pt - ICU at capacity Addendum entered by Katia Hathaway RN 03/10/25 17:37: 1735: completed uploading [address] abd/pel w/o con 03/05, CT bx liver 03/08, & ct drain abscess 03/09 to both [facility] and [facility]. Called both TC to inform them. Both TC's stated they will review and call back. I informed them that I only sent 3 images pertaining to the liver. Addendum entered by Katia Hathaway RN 03/10/25 16:38: 1632: called [facility], transfer initiated - will send sofía link to upload images. 1623: called [facility] TC, transfer initiated - will send sofía link to upload images. created x2 CD's Original Note: 1615: clinicals sent to [facility] and [facility]. 1606: spoke to Dr. Mejia regarding transfer request for hepatology for liver necrosis and susp for liver malignancy. He states pt is not improving and needs to be transferred for HLOC. pt is not intubated but is on pressors.
[2025-03-10] MEDS: fentaNYL CIT INJ 50 mCg/ML AMP 2ML 25 MCG IVP ×2 (17:54→21:00)
[2025-03-10] MEDS: Norepinephrine/D5W 8mg/250ml 8 MG/250 ML BAG 36.983 MG IV (20:38)
[2025-03-11] VITALS (103 sets, daily range): BP systolic 100–142; BP diastolic 41–66; PULSE 69–100; RESP 12–36; TEMP 36.2–36.7; O2SAT 85–98; BMI 45.7
[2025-03-11] MEDS: fentaNYL CIT INJ 50 mCg/ML AMP 2ML 25 MCG IVP ×6 (00:03→20:01)
[2025-03-11] MEDS: PIPER/TAZO 3.375 GM PREMIX 3.375 GM/50 ML BAG IV ×5 (00:04→23:43)
[2025-03-11] MEDS: VASOPRESSIN IN NS IVPB 20 UNIT/100 ML BAG 9 UNIT IV ×3 (00:04→22:45)
[2025-03-11] MEDS: Norepinephrine/D5W 8mg/250ml 8 MG/250 ML BAG 41.914 MG IV (03:02)
--- NOTE | 2025-03-11 03:25 | EKG_ITS ---
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
[2025-03-11] MEDS: ALBUMIN HUMAN 5% IVPB 12.5 GM/250 ML BTL IV ×2 (03:30→09:42)
[2025-03-11 03:45] LABS: Lactate (Lactic Acid) 2.5 mMol/L (0.4-2.0)
[2025-03-11 03:50] LABS: Basophils # (Auto) 0.1 Thou/mm3 (0.0-0.2); Basophils % (Auto) 0 % (0-2.5); Eosinophils # (Auto) 0.1 Thou/mm3 (0.0-0.5); Eosinophils % (Auto) 0 % (0-10); Hematocrit 34.8 % (36.0-46.0); Hemoglobin 10.8 g/dL (12.0-16.0); Immature Granulocytes Auto 0.30 Thou/mm3 (0.00-0.00); Lymphocytes # (Auto) 2.7 Thou/mm3 (1.0-4.8); Lymphocytes % (Auto) 14 % (10-50); Mean Corpuscular HGB Conc 31.0 g/dl (31.0-37.0); Mean Corpuscular Hemoglobin 31.1 pg (25.0-35.0); Mean Corpuscular Volume 100 fL (80-100); Monocytes # (Auto) 1.6 Thou/mm3 (0.0-0.8); Monocytes % (Auto) 8 % (0-12); Neutrophils # (Auto) 14.4 Thou/mm3 (1.8-7.7); Neutrophils % (Auto) 75 % (37-80); Nucleated Red Blood Cell # 0.02 Thou/mm3 (0.00-0.00); Nucleated Red Blood Cell % 0 /100 WBC (0); Platelet Count 51 Thou/mm3 (140-440); RDW Standard Deviation 69.2 fL (36.4-46.3); Red Blood Count 3.47 Miln/mm3 (4.00-5.20); White Blood Count 19.1 Thou/mm3 (3.6-11.0)
[2025-03-11 03:51] LABS: Path Review Blood Smear Sent to Pathologist; Slide Review Platelets confirmed
[2025-03-11 04:08] LABS: INR 1.8 (0.9-1.3); Partial Thromboplastin Time 45.9 Seconds (22.0-36.0); Prothrombin Time 17.8 Seconds (9.0-12.2)
[2025-03-11 04:11] LABS: Alanine Aminotransferase < 7 U/L (10-49); Albumin, Serum 3.6 gm/dL (3.4-4.8); Albumin/Globulin Ratio 1.5 (1.2-2.2); Alkaline Phosphatase 239 U/L (46-116); Anion Gap 16 (7-16); Aspartate Amino Transferase 104 U/L (0-34); BUN/Creatinine Ratio 9 Ratio (12-20); Bilirubin,Total 6.9 mg/dL (0.3-1.2); Blood Urea Nitrogen 29 mg/dL (9-23); Calcium 9.2 mg/dL (8.3-10.6); Calcium (Corrected) 9.5 mg/dL (8.5-10.1); Carbon Dioxide 20.8 mMol/L (20.0-31.0); Chloride 95 mMol/L (98-107); Creatinine (Component) 3.2 mg/dL (0.6-1.3); Estimated Creatinine Clearance 21.8 mL/min (>60); Globulin 2.4 gm/dL (2.3-3.5); Glucose 82 mg/dL (74-106); Magnesium 2.0 mg/dL (1.6-2.6); Osmolality,Calculated 269 (275-295); Phosphorous 4.0 mg/dL (2.4-5.1); Potassium 3.8 mMol/L (3.4-5.1); Sodium 132 mMol/L (136-145); Total Protein 6.0 gm/dL (5.7-8.2); Troponin I 0.026 ng/mL (0.0-0.045); eGFR 15 See Note
--- NOTE | 2025-03-11 05:00 | XR_ITS ---
EXAMINATION: AP chest single view TECHNIQUE: AP portable semiupright chest single view Date and time: March 11, 2025, 0535 hours, comparison March 10, 2025 INDICATIONS: Difficulty breathing this week, vascular congestion on chest from yesterday FINDINGS: Opacity at the lung bases consistent with mild pneumonia Moderate vascular congestion including central vascular engorgement Mild enlargement cardiac contour Right internal jugular dialysis catheter tip SVC satisfactory position Orogastric tube in the stomach, the tip is below the level of the film IMPRESSION: Mild pneumonia at the lung bases Moderate vascular congestion
[2025-03-11 06:43] LABS: Reflex Lactate? Y
[2025-03-11 07:44] LABS: Lactic Acid, 3 HR 2.5 mMol/L (0.4-2.0)
[2025-03-11] MEDS: LIDOCAINE 5% 1 PATCH TOP (08:00)
[2025-03-11] MEDS: MICONAZOLE NITRATE CR 2% 15 GM TUBE TOP ×2 (09:43→21:11)
[2025-03-11] MEDS: BALSAM PERU/CASTOR OIL (Venelex) 60 GM TUBE TOP ×2 (09:44→21:10)
--- NOTE | 2025-03-11 09:55 | PC.CC ---
Addendum entered by Katia Hathaway RN 03/11/25 13:10: 1309: called [facility], spoke to Suzy again to clarify what was pending. She stated their doctor is still reviewing the images. They will reach out to us when completed. Original Note: 0953: called [facility], spoke to Suzy, she stated pt has been financially approved, doctor connect is pending.
--- NOTE | 2025-03-11 10:13 | ESPR_ITS ---
<Statement entered by Francine Duran MD - 03/13/25 11:53> TOTAL CC TIME: 45 MIN I saw and evaluated the patient. I reviewed the resident?s note and agree with findings and plan as documented in the resident?s note. Upon my evaluation, this patient had a high probability of imminent or life- threatening deterioration due to distributive shock which required my direct attention, intervention, and personal management. This time is exclusive of time spent on procedures, which are documented separately if performed. I was able to discuss the case with [facility] hepatology team as well as [facility] transplant team. 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 I have personally reviewed labs, imaging, home meds/prior records, examined the patient, formulated and discussed management plan with the IM team. Pt examined at bedside today. Chest pain overnight, troponins ordered, with slight elevation, was given medicine with subsided some of patients symptoms. Pt continues to be Anuric and having some pain in abdomen. Will allow for patient to continue with Pureed diet at this time. Transfer case currently pending, reached out to [place], who is currently reviewing case. Added Dilaudid PRN and Fentanyl PRN for breakthrough. Pt to get HD today. Pro-Myron elevated at 7.5. Continue to have high suspcion for malignancy. Shock continues to be distributive in nature related to a vasodilatory state. Will place for IR PICC line for tomorrow, received verbal consent. Hold DVT prophylaxis, n.p.o. at midnight. Coag panel for the morning. Repeat hematology and chemistry in AM. #Hepatic Encephalopathy - resolved #Shock #Elevated troponins #Acute on Chronic Hypoxic Hypercapnic Respiratory Failure, resolved #Abdominal Pain, worsening #Necrosis of Liver #Perihepatic fluid, s/p hepatic drain #HX of YODER, confirmed with bx #Major ileus, resolved #Transaminitis - stable/persistent #Hyperbilirubinemia 2/2 infiltrative cancer - worsening #KADI on CKD stage IIIB - Anuric #HAGMA with underlying metabolic alkalosis - resolved #Hypokalemia - resolved #Hyperkalemia - Resolved #Subclinical hypothyroidism #Hx of Hypothyroidism #Leukocytosis - ongoing #Lactic Acidosis, improving #Unknown source of infection? Dominick Mejia, PGY-2 Internal Medicine Documentation for date of: 03/11/25 Subjective Subjective Interval history: This is a 70-year-old female who was admitted to the ICU for hyperkalemia and altered mental status. She has a history of Yoder cirrhosis. She had a dialysis catheter placed and underwent dialysis for her hyperkalemia. She tolerated well. There have been no acute overnight events. This morning she is awake alert oriented x 3 and appropriate. She is complaining of significant amount of pain. She states that the pain is everywhere . She is afebrile she has a decreased urinary output 03/04-yesterday afternoon/evening required reinstatement of her Levophed. Today she remains awake alert and communicative. There is a rectal tube in place for her liquid stool secondary to her lactulose. She has had a poor urinary output, she is afebrile. She has had 2 out of 2 bottles positive for GPC's and repeat blood cultures were sent 03/07-patient had originally been downgraded to the floor. She was doing well until yesterday. Yesterday she became more hypotensive. Rapid response was called. Despite 10 mg of midodrine and 25 g of albumin she was still hypotensive with a MAP in the 40s therefore the decision was made to bring her to the ICU. She was slightly confused at that point in time. She was brought to the ICU and a left femoral line was placed and she was started on Levophed. This morning she is currently on dialysis. She has significant stool output with a rectal tube in place. She is afebrile, minimal urinary output 03/08: s/p repeat Liver bx: c/w necrosis (NOT CIRRHOSIS) - necrosis is new compared to recent prior bx w/ steatosis. albumin was given 03/09/2025 She had a dialysis catheter placed and underwent dialysis for her hyperkalemia. She tolerated well. There have been no acute overnight events. This morning she is awake alert oriented x 3 and appropriate. She is complaining of significant amount of pain. She states that the pain is everywhere . She is afebrile she has a decreased urinary output 03/10/2025 Pt examined at bedside today. No acute overnight events. Pt reports having some worsening abdominal pain that is diffuse that is new and is also having some back pain. She is inquiring about how her liver is doing. She is also stating she feels a bit anxious in regards to her health. She is agreeable to getting a central line placement. After multiple attempts at central line placement in [facility] line could not be placed (see operative report). No other complaints at this time. 03/11/2025 Overnight patient had chest pain EKG showed frequent PVCs with trigeminy and bigeminy. We are trending her trops. Platelets continue to downtrend to 51. She is currently on Levophed 0.13 and vasopressin 0.03 changing her pain regimen today continuing the fentanyl Q4HR and adding Dilaudid 0.5 Q8HR. Plan for PICC line for TPN tomorrow. She is currently eating 30% of her food (pureed). Spoke with transfer center who says patient has been financially cleared and images have been received. About 400cc of hepatic fluid drained over 12 hours today. Sacral and inguinal wound appear stable, however, non-helaing. Exam Vital Signs Temp Pulse Resp BP Pulse Ox O2 Del Method O2 Flow Rate 97.4 F 78 18 125/52 L 97 Nasal Cannula 5 03/11/25 01:45 03/11/25 06:53 03/11/25 06:53 03/11/25 03:02 03/11/25 06:53 03/10/25 04:00 03/11/25 06:53 FiO2 3 03/07/25 08:03 Narrative Exam General: AAOx3, in mild distress, wearing glasses, morbidly obese HEENT: Mucous membranes moist, conjuctiva normal, PERRLA, Cardiovascular: S1, S2, radial pulses +2 bilat, RRR, R TDC present Pulmonary: Difficulty appreciating breath sounds GI: Abdomen slightly distended, R hepatic drain present and draining seroanginous fluid, tenderness throughout abdominal quadrants, Extremities: Anasarca, dorsalis pedis pulses +2 bilaterally. Normal perfusion. Neuro: AAOx3, no gross focal neurological deficits Skin: Right inguinal fold shows non-draining ulcer that does not appear to be infected at this time, however it appears to be about 2 cm deep and 0.5 -1.0 cm in circumference, multiple areas of purpura throughout right side of abdomen from fall. Superficial sacral pressure lesions 2-3cms in circumference. Objective Labs 03/11/25 03:38 03/11/25 03:38 Labs: Laboratory Results - last 24 hr 03/10/25 03/11/25 03/11/25 04:48 03:38 07:35 WBC 19.1 H RBC 3.47 L Hgb 10.8 L Hct 34.8 L MCV 100 MCH 31.1 MCHC 31.0 RDW Std Deviation 69.2 H Plt Count 51 L Neut % (Auto) 75 Lymph % (Auto) 14 [place] % (Auto) 8 Eos % (Auto) 0 Baso % (Auto) 0 Neut # (Auto) 14.4 H Lymph # (Auto) 2.7 [place] # (Auto) 1.6 H Eos # (Auto) 0.1 Baso # (Auto) 0.1 Immature Gran # (Auto) 0.30 H Absolute Nucleated RBC 0.02 H Immature Gran % 2 H Nucleated RBC % 0 Smear Path Review Sent to Pathologist PT 17.8 H INR 1.8 H APTT 45.9 H Sodium 132 L Potassium 3.8 Chloride 95 L Carbon Dioxide 20.8 Anion Gap 16 BUN 29 H Creatinine 3.2 H Estim Creat Clear Calc 21.8 L eGFR 15 L BUN/Creatinine Ratio 9 L Glucose 82 Calculated Osmolality 269 L Lactic Acid 2.5 H 2.5 H Calcium 9.2 Corrected Calcium 9.5 Phosphorus 4.0 Magnesium 2.0 Total Bilirubin 6.9 H D AST 104 H ALT < 7 L Alkaline Phosphatase 239 H D Troponin I 0.026 Total Protein 6.0 Albumin 3.6 Globulin 2.4 Albumin/Globulin Ratio 1.5 Procalcitonin 7.50 H Misc Test Result Platelets confirmed ABG Interpretation ABG results: 03/01/25 03/01/25 03/02/25 09:05 16:01 04:53 ABG pH 7.37 7.33 L 7.44 D ABG pCO2 34 34 35 ABG pO2 99 99 82 L ABG HCO3 20 18 L 24 ABG O2 Saturation 99 H 98 97 ABG Base Excess -5 L -7 L 0 VBG pH VBG pCO2 VBG pO2 VBG Base Excess 03/02/25 03/03/25 03/04/25 08:43 04:28 05:02 ABG pH 7.48 H 7.40 7.42 ABG pCO2 29 L 40 D 42 ABG pO2 130 H D 75 L D 54 L* D ABG HCO3 22 25 27 H ABG O2 Saturation 100 H 96 90 L ABG Base Excess -1 0 2 VBG pH VBG pCO2 VBG pO2 VBG Base Excess 03/05/25 03/06/25 03/06/25 16:21 14:49 16:43 ABG pH 7.40 7.36 ABG pCO2 44 49 H ABG pO2 69 L 68 L ABG HCO3 27 H 28 H ABG O2 Saturation 96 95 ABG Base Excess 2 1 VBG pH 7.38 VBG pCO2 44 VBG pO2 76 H VBG Base Excess 1 03/07/25 03/08/25 04:38 05:25 ABG pH 7.36 7.37 ABG pCO2 48 47 ABG pO2 64 L 63 L ABG HCO3 27 H 27 H ABG O2 Saturation 94 94 ABG Base Excess 1 1 VBG pH VBG pCO2 VBG pO2 VBG Base Excess Quality Measures Quality Measures VTE prophylaxis Advance care planning discussed with:: patient and spouse Assessment & Plan Assessment Current Active Medications: Generic Name Dose Route Start Last Admin Trade Name Freq PRN Reason Stop Dose Admin Acetaminophen 325 mg 03/08/25 09:46 03/09/25 19:06 Acetaminophen Rosario 325 Mg/10 Ml Udc NG 04/07/25 09:45 325 mg Q6HR PRN Administration FEVER >100.4 OR PAIN 1-3 Albuterol/Ipratropium 3 ml 03/04/25 07:03 03/06/25 15:26 Albuterol/Ipratropium (Duoneb) Rt Rosario 3 Ml Nebu INH 03/31/25 14:59 3 ml Q4HRRT PRN Administration wheeze Artificial Tears 0 drop 03/02/25 08:48 03/07/25 08:32 Artificial Tears 225 Drop/15 Ml Btl BOTH EYES 04/01/25 08:47 2 drops PRN PRN Administration TO KEEP EYES MOIST Balsam [place] Oil 0 gm 03/06/25 21:00 03/11/25 09:44 Balsam [place] Oil (Venelex) 60 Gm Tube TOP 04/05/25 20:59 1 applicatio BID RAMON Administration Fentanyl Citrate 25 mcg 03/10/25 14:37 03/11/25 10:03 Fentanyl Cit Inj 50 Mcg/Ml Amp 2ml IVP 03/15/25 14:36 25 mcg Q3HR PRN Administration pain Protocol Heparin Sodium (Porcine) 3,100 unit 03/01/25 18:45 03/08/25 16:33 Heparin Sod Inj 1000 Unit/Ml Vial 10 Ml INDWELLCAT 03/15/25 18:44 3,100 unit X1 PRN Administration DIALYSIS Norepinephrine/Dextrose 8 mg in 250 mls @ 12.328 mls/hr 03/06/25 15:58 03/11/25 10:00 Levophed In D5w 8mg/250ml IV 04/05/25 15:57 0.11 mcg/kg/min .[id number] PRN 27.121 mls/hr PER PROTOCOL Titration Protocol 0.05 MCG/KG/MIN Albumin Human 25 gm in 100 mls @ 0 mls/hr 03/09/25 10:00 03/09/25 10:30 Albuminex 25% Ivpb IV 300 mls/hr Q30MIN PRN Administration To maintain SBP>90 Per Protocol Vasopressin/Sodium Chloride 20 unit in 100 mls @ 9 mls/hr 03/09/25 13:05 03/11/25 00:04 Vasostrict/Ns Ivpb IV 04/08/25 13:04 0.03 unit/min .[id number] PRN 9 mls/hr PER PROTOCOL Administration Protocol 0.03 UNIT/MIN Piperacillin/Tazobactam/Dextrose 3.375 gm in 50 mls @ 100 mls/hr 03/10/25 09:41 03/11/25 06:14 Zosyn IV 03/17/25 09:40 100 mls/hr Q6HR RAMON Administration Protocol Albumin Human 12.5 gm in 250 mls @ 100 mls/hr 03/10/25 14:45 03/11/25 09:42 Albuminar-5 Ivpb IV 03/14/25 14:44 100 mls/hr Q6H RAMON Administration Levothyroxine Sodium 100 mcg 03/11/25 06:00 03/11/25 06:14 Levothyroxine Inj 100 Mcg Vial IV 04/10/25 05:59 100 mcg ACBR RAMON Administration Lidocaine 1 patch 03/02/25 11:57 03/11/25 08:00 Lidocaine 5% 1 Patch TOP 04/01/25 11:56 1 patch UD PRN Administration localized pain Protocol Miconazole Nitrate 0 gm 03/02/25 12:00 03/11/25 09:43 Miconazole Nitrate Cr 2% 15 Gm Tube TOP 04/01/25 11:59 1 applicatio BID RAMON Administration Midodrine 10 mg 03/07/25 09:29 03/07/25 10:17 Midodrine 5 Mg Tablet PO 04/03/25 09:59 10 mg Q6H PRN Administration MAP less than 65 Ondansetron HCl 4 mg 03/01/25 14:01 Ondansetron Inj 2 Mg/Ml Inj 2 Ml IVP 03/31/25 14:00 Q6H PRN NAUSEA OR VOMITING Protocol Pantoprazole Sodium 40 mg 03/11/25 03:50 03/11/25 03:59 Pantoprazole Inj 40 Mg Vial IVP 04/10/25 03:49 40 mg QDAY RAMON Administration Pharmacy Consult 1 each 03/09/25 13:04 Pharmacy Renal Dose Adjustment 1 Ea XX 04/08/25 13:03 PRN PRN CONSULT Sodium Chloride 3 ml 03/01/25 11:02 Sodium Chloride Rt Rosario 0.9% 3 Ml Nebu INH 03/31/25 11:01 PRN PRN SOLN Plan Assessment: 70-year-old female with a history of chronic kidney disease (CKD), cirrhosis, hypothyroidism, recent giardia infection, and chronic back pain (oxy q4), was recently admitted with severe hyperkalemia (K 7.1), KADI, and generalized weakness, who presented from [facility] due to encephalopathy. Bounced back to ICU due to shock/refractory hypotension requiring pressor support. Evaluating patient for worsening liver function and unknown source of infection. Initiated conversation with transfer center about hepatic disfunction, currently cleared by financial department. [employer] #Hepatic Encephalopathy - resolved Patient AOx3 Ddx hepatic failure, renal failure, or underlying infection Dx studies Blood cx, urinalysis, c. diff, Lactic acid RX Resuming lactulose, continuing rifaximin CV #Shock Ddx distributive, vasodialotory shock state, from what we think is infection, which she is at increased risk for due to concern for hepatic malignancy with confirmed necrosis. Less likely cards due to 03/02/2025 ECHO LVEF 50-55%. Mild mitral valve regurgitation, mild tricuspid regurgitation. EKG HR 78 QTc 452 IL 200 QRSd 122 Dx Repeat blood cultures negative liver bx: necrosis, urine cx: no growth Rx: Levofed: 0.11, vaso: 0.03 CTCAP w/con: resulted -Repeat blood cx repeat urinalysis, C diff -Zosyn at this time RRx: If necrosis or function of liver worsens PULM - Bilateral pleural effusions, atelectasis vs PNA at lung base #Acute on Chronic Hypoxic Hypercapnic Respiratory Failure, resolved Underlying respiratory acidosis with adequate metabolic compensation DDX OHS, atelectasis, COPD, CHF Dx CXR, CTAP RX ISS, duonebs, Nasal cannula RRX - working so far, no respiratory failure in ICU GI #Abdominal Pain, worsening #Necrosis of Liver #Perihepatic fluid, s/p hepatic drain DDX: Malignancy of liver, intra-abdominal infection, SBP. MRCP did not show intra or extra hepatic stones, CBD dilatation. Repeat liver bx shows tissue necrosis, however no malignancy. Due to persistent lactic acidosis, and pressor requirement, pt likely has a underlying malignancy, despite negative liver biopsies. Pt would benefit from hepatology consult from a outside facility for further workup, however, multiple liver lesions and further compensation of liver function likely fits differential of malignancy of liver. AFP negative, CA 19-9 pending, Hepatitis Panel Negative. Pending other cultures of perihepatic fluid (SAAG 1.9), however cytology to be done due to concern for malignant ascites. Dx CXR, CTAP RX Initiated Hepatology transfer, continue with hepatic drain, follow up with Cultures of body fluid, Follow up Fluid cytology RRX - If pt's liver necrosis worsens #HX of YODER, confirmed with bx MELD NA: 30, Child Spicer:10-11 Complicated by enlarging liver mass seen on MRI. Ddx As above Dx As above Rx Will remove lactulose, Rifaximin, and rectal tube at this time. Continue trending CMP #Major ileus, resolved NGT in place #Transaminitis - stable/persistent ddx YODER, liver necrosis, Plan: -CTM LFTs #Hyperbilirubinemia 2/2 infiltrative cancer - worsening T Bili 1.2 --> 2.8 --> 3.5 --> 6.9 Most likely in the setting of worsening liver function with lobulated large malignant neoplasm seen on MRCP. Normal gallbladder. Recent abd US showed no stones. No fever, no jaundice seen. Plan: -CTM for abdominal pain when patient is more oriented. -FUP CT bx RENAL #KADI on CKD stage IIIB - Anuric 2/2 ATN hypotension and poor perfusion from antihypertensives, narcotics, and muscle relaxers BUN 102 Cr 3.7 Dx urine lytes ordered RX Nephro consulted (Dr. Mccauley) HDS #HAGMA with underlying metabolic alkalosis - resolved Ddx lactic acidosis, renal failure, uremia HCO3 25, pH 7.37 pCO2 47--> PCO2= 45.5+/- 2 Delta-Delta, (15-12)/(25-24)= 3 Rx HDS #Hypokalemia - resolved K 3.0 most likely secondary to renal failure. Plan: -Replete as necessary. #Hyperkalemia - Resolved Ddx KADI on CKD Plan: -CTM with repeat renal panels -Kayexelate -Insulin -Calcium gluconate No active problems ENDO #Subclinical hypothyroidism #Hx of Hypothyroidism TSH 8.58, actually much improved from most recent admission. Plan: -re-evaluate thyroid functioning in 6 weeks outpatient following thyroid medication changes HEME #Leukocytosis - ongoing DDx most likely reactive to stress, could be 2/2 infection procal elevated, UA dirty Plan: -Repeat UA -Trend WBC -Zosyn #Lactic Acidosis, improving Ongoing lactic acidosis complicated by poor clearance in the setting of liver failure/malignancy. Plan -CTM -IVF when patient is no longer volume overloaded. -FUP CT bx DERM #Skin shearing/pressure wound Patient has inguinal crease wound 0.5-1.0cm in depth, packed, not weeping or oozing. Another superifical inguinal surface wound. Sacral superifical presure wound. Skin dehisces on traction Dx fall one month ago, steroid decreases skin strength, poor wound healing Rx wound care ID #Unknown source of infection? Patient lactic acid is persistent. Inguinal wound source appears unlikely due to no signs of infection. Possibly due to hidden abscess? Plan: -F/u with cultures #ICU Health maintenance Mechanical ventilation: None Sedation: None Diet: Dysphagia 1 - pureed, NPO at midnight for PICC line for TPN DVT prophylaxis: Heparin GI prophylaxis: None Falcon: Yes Lines: PIV, L femoral, R tunneled dialysis catheter. Antibiotics: Zosyn CODE STATUS: Full Patient seen and care discussed with my attending physician, Dr. Duran, and Dr. Dominick Mejia Note written by Andrey Bhatt PGY-1 This document was transcribed using voice recognition technology. Minor inaccuracies may be present.
[2025-03-11] MEDS: Norepinephrine/D5W 8mg/250ml 8 MG/250 ML BAG 27.121 MG IV (10:29)
--- NOTE | 2025-03-11 10:52 | PC.SS ---
SS update: pending transfer.
[2025-03-11 12:17] LABS: Troponin I 0.403 ng/mL (0.0-0.045)
[2025-03-11] MEDS: HEPARIN SOD INJ 1000 UNIT/ML VIAL 10 ML 3100 UNIT INDWELLCAT (14:06)
[2025-03-11] MEDS: HYDROmorphone INJ 2 MG/ML VIAL 0.5 MG IVP ×2 (14:38→22:43)
[2025-03-11] MEDS: Norepinephrine/D5W 8mg/250ml 8 MG/250 ML BAG 46.845 MG IV (16:10)
[2025-03-11 21:27] LABS: Troponin I 0.293 ng/mL (0.0-0.045)
[2025-03-11] MEDS: Norepinephrine/D5W 8mg/250ml 8 MG/250 ML BAG 51.777 MG IV (21:45)
[2025-03-12] VITALS (108 sets, daily range): BP systolic 85–148; BP diastolic 27–65; PULSE 65–119; RESP 13–39; TEMP 36.2–37; O2SAT 90–97; BMI 43.8
[2025-03-12] MEDS: Norepinephrine/D5W 8mg/250ml 8 MG/250 ML BAG 56.708 MG IV (02:21)
[2025-03-12] MEDS: fentaNYL CIT INJ 50 mCg/ML AMP 2ML 25 MCG IVP ×4 (04:30→19:38)
[2025-03-12 04:53] LABS: Allen Test Not Performed; Base Excess -1 (-3-3); HCO3 25 mEq/L (20-26); Inspired O2, VO2 Liters 6 L/min; Inspired Oxygen, FIO2 21 %; O2 Saturation 96 % (91-98); PCO2 45 mmHg (32.0-48.0); PO2 82 mmHg (83-108); Puncture Site Arterial Line; pH, Arterial 7.35 (7.35-7.45)
--- NOTE | 2025-03-12 05:00 | XR_ITS ---
EXAMINATION: AP chest single view TECHNIQUE: AP portable semiupright chest single view Date and time: March 12, 2025, 0451 hours, comparison March 11, 2025 INDICATIONS: Coughing congestion this week. FINDINGS: Pneumonia right base obscuring detail right hemidiaphragm Mild heart failure with mild enlargement cardiac contour and prominent vascular congestion Internal jugular dialysis catheter tips right atrium Orogastric tube lower end is below the level of the film IMPRESSION: Mild heart failure Pneumonia right base
--- NOTE | 2025-03-12 05:06 | PC.NURSE ---
0506: Notified Dr. Westbrook of patients need to increase Levo through out the night, no orders at this time.
[2025-03-12] MEDS: PIPER/TAZO 3.375 GM PREMIX 3.375 GM/50 ML BAG IV ×2 (05:24→21:12)
[2025-03-12 06:07] LABS: Basophils # (Auto) 0.1 Thou/mm3 (0.0-0.2); Basophils % (Auto) 1 % (0-2.5); Eosinophils # (Auto) 0.0 Thou/mm3 (0.0-0.5); Eosinophils % (Auto) 0 % (0-10); Hematocrit 35.8 % (36.0-46.0); Hemoglobin 11.1 g/dL (12.0-16.0); Immature Granulocytes Auto 0.40 Thou/mm3 (0.00-0.00); Lymphocytes # (Auto) 2.8 Thou/mm3 (1.0-4.8); Lymphocytes % (Auto) 14 % (10-50); Mean Corpuscular HGB Conc 31.0 g/dl (31.0-37.0); Mean Corpuscular Hemoglobin 31.0 pg (25.0-35.0); Mean Corpuscular Volume 100 fL (80-100); Monocytes # (Auto) 1.9 Thou/mm3 (0.0-0.8); Monocytes % (Auto) 9 % (0-12); Neutrophils # (Auto) 15.4 Thou/mm3 (1.8-7.7); Neutrophils % (Auto) 74 % (37-80); Nucleated Red Blood Cell # 0.03 Thou/mm3 (0.00-0.00); Nucleated Red Blood Cell % 0 /100 WBC (0); RDW Standard Deviation 70.0 fL (36.4-46.3); Red Blood Count 3.58 Miln/mm3 (4.00-5.20); White Blood Count 20.6 Thou/mm3 (3.6-11.0)
[2025-03-12 06:19] LABS: Platelet Count 38 Thou/mm3 (140-440)
[2025-03-12 06:21] LABS: INR 1.8 (0.9-1.3); Partial Thromboplastin Time 48.7 Seconds (22.0-36.0); Prothrombin Time 17.9 Seconds (9.0-12.2)
[2025-03-12] MEDS: HYDROmorphone INJ 2 MG/ML VIAL 0.5 MG IVP ×3 (06:25→21:27)
[2025-03-12] MEDS: Norepinephrine/D5W 8mg/250ml 8 MG/250 ML BAG 66.57 MG IV (06:45)
[2025-03-12 07:02] LABS: Alanine Aminotransferase < 7 U/L (10-49); Albumin, Serum 3.4 gm/dL (3.4-4.8); Albumin/Globulin Ratio 1.5 (1.2-2.2); Alkaline Phosphatase 273 U/L (46-116); Anion Gap 17 (7-16); Aspartate Amino Transferase 106 U/L (0-34); BUN/Creatinine Ratio 8 Ratio (12-20); Bilirubin,Total 8.2 mg/dL (0.3-1.2); Blood Urea Nitrogen 21 mg/dL (9-23); Calcium 9.1 mg/dL (8.3-10.6); Calcium (Corrected) 9.6 mg/dL (8.5-10.1); Carbon Dioxide 23.2 mMol/L (20.0-31.0); Chloride 95 mMol/L (98-107); Creatinine (Component) 2.7 mg/dL (0.6-1.3); Estimated Creatinine Clearance 25.4 mL/min (>60); Globulin 2.3 gm/dL (2.3-3.5); Glucose 76 mg/dL (74-106); Magnesium 2.0 mg/dL (1.6-2.6); Osmolality,Calculated 272 (275-295); Phosphorous 3.4 mg/dL (2.4-5.1); Potassium 3.5 mMol/L (3.4-5.1); Sodium 135 mMol/L (136-145); Total Protein 5.7 gm/dL (5.7-8.2); eGFR 19 See Note
[2025-03-12 07:19] LABS: Slide Review Platelets confirmed
[2025-03-12 07:31] LABS: Lactate (Lactic Acid) 2.8 mMol/L (0.4-2.0)
--- NOTE | 2025-03-12 08:00 | XR_ITS ---
Examination: Ultrasound-guided needle placement right basilic vein. Dual-lumen central line placement (PICC line). Fluoroscopy AP chest, portable, single view Exam date and time: March 12, 2025, 1434 hours INDICATION: Need for long-term intravenous medication A timeout was completed verifying correct patient, procedure, site, positioning Informed consent provided Technique: The patient's site was prepped and draped in sterile fashion. Maximum Sterile Barrier Technique used including cap, mask, sterile gown, sterile gloves, and sterile full body drape. If ultrasound technique used: sterile gel and sterile probe covers. Hand Hygiene performed using proper scrub, soap and water, or alcohol-based hand rub. Site right portable apparatus used to confirm patency of the right basilic vein Utilizing ultrasonographic guidance successful 21-gauge needle puncture into the right basilic vein Ultrasound images recorded and stored. 5 cc 1% lidocaine administered for local anesthetic. Successful micropuncture with a 21-gauge needle is performed. 0.18 wire guide is then introduced into the SVC under fluoroscopic guidance. Dual-lumen catheter dilator is then introduced, followed by the catheter in the SVC and proper position under fluoroscopic guidance. Successful aspiration of blood and flushing with heparinized saline is then performed in the 2 venous limbs. The catheter sutured in place. Findings: Under fluoroscopy, the tip of the catheter is in good position in the vena cava. Portable chest x-ray, post line placement is ordered. Estimated blood loss 3 cc The patient tolerated the procedure well and was in stable and satisfactory condition at completion of the procedure Impression: Successful ultrasound-guided needle placement right basilic vein Successful placement of dual lumen central line, percutaneous Fluoroscopy 0.2-minute radiation dose 2.03 mGy 1 spot fluoroscopic chest. AP chest completion procedure demonstrates satisfactory position central line. May use central line.
--- NOTE | 2025-03-12 08:18 | PC.CC ---
Called [facility] On behalf of ICU residents William and Jackie. Spoke to Noman at [facility] to relay a request to have Physicians speak again regarding case. [facility] stated that he would page Dr. Pryor to reach out to Dr. Duran for attending to attending communication. It was also stated that there was financial clearance, no formal acceptance, and call on hold until liver MRI with contrast completed. Informed MD Thomas of update.
[2025-03-12] MEDS: BALSAM PERU/CASTOR OIL (Venelex) 60 GM TUBE TOP (09:40)
[2025-03-12] MEDS: MICONAZOLE NITRATE CR 2% 15 GM TUBE TOP (09:40)
[2025-03-12] MEDS: Norepinephrine/D5W 8mg/250ml 8 MG/250 ML BAG 71.501 MG IV ×2 (10:06→14:32)
[2025-03-12] MEDS: VASOPRESSIN IN NS IVPB 20 UNIT/100 ML BAG 9 UNIT IV ×2 (10:06→20:57)
--- NOTE | 2025-03-12 10:11 | ESCONSULT_ITS ---
HPI Data of Consult Consult date: 03/12/25 Requesting Physician: Vita Myrick MD Primary Care Provider: Tona Metz MD Consult Narrative Reason for consult: Possible liver malignancy History of present illness: Patient unfortunate 70-year-old lady with history of chronic kidney disease and MYERS with prior liver biopsy 12/04/2024 revealing moderate macrovesicular and microvascular steatosis with no necrosis negative for malignancy. Currently residing at [facility], found to be confused with general decline. Head CT 03/01/2025 showed negative hemorrhage mass effect or midline shift. No evidence of CVA on CT angio stroke protocol. CT chest abdomen pelvis revealed cirrhosis suspicious for esophageal varices and mild to moderate ascites including fluid subcapsular to the liver. MRCP 03/06/2025 revealed lobulated large malignant appearing neoplasm which appeared to be enlarged now measuring 14.9 x 11 cm in diameter occupying entire right lobe of the liver as well as the medial segment of the left lobe of the liver. Liver biopsy 03/08/2025 revealed necrotic cells but no malignancy however. Patient had CT- guided right upper quadrant drain placement with cytologies pending. A.m. labs 1215 2526.5 WBC hemoglobin 11.1 platelet count 38,000. LFTs elevated and rising with bilirubin 8.2 AST 106 alk phos 273. Lactic acid remains elevated at 2.8. Tumor marker AFP low at < 1.30 with CA 19?9 pending. Patient is currently in ICU. Possible transfer to [place] discussed. cc:: cc: Vita Myrick MD Past Medical History Family History OTHER FAMILY HX: CHF in father breast cancer in mother Past Medical History Comments PMH COMMENT: Prior hepatic encephalopathy chronic kidney disease umbilical hernia repair joint replacement hysterectomy gout hypothyroidism arthritis Meds Home Medications and Allergies Home Medications ?Medication ?Instructions ?Recorded ?Confirmed ?Type allopurinol 100 mg tablet 100 mg PO DAILY 12/04/2408/20 History Held on 02/20/25. Instructions: Resume on 03/06/25. hold until pcp f/u held due to [place] resume once cr improves amitriptyline 25 mg tablet 25 mg PO .qhs depression 03/02/25 History amlodipine 5 mg tablet 5 mg PO DAILY 12/04/2403/02 History docusate sodium 100 mg capsule 100 mg PO QDAY constipa tion 03/02/25 03/02/25 History ondansetron HCl 8 mg tablet 4 mg PO [id number] nausea and vomiting 03/02/25 03/02/25 History oxycodone-acetaminophen 5 mg-325 1 tab PO Q4H PRN pain 03/02/25 03/02/25 History mg tablet simethicone 80 mg chewable tablet 80 mg PO [id number] PRN Gas 03/02/25 03/02/25 History Allergies Allergy/AdvReac Type Severity Reaction Status Date / Time No Known Allergies Allergy Verified 12/07/24 14:34 Exam Vital Signs Temp Pulse Resp BP Pulse Ox O2 Del Method O2 Flow Rate 97.6 F 94 20 106/43 L 95 Nasal Cannula 6 03/12/25 04:00 03/12/25 10:06 03/12/25 08:56 03/12/25 10:06 03/12/25 08:56 03/12/25 04:00 03/12/25 08:56 FiO2 3 03/07/25 08:03 Narrative Exam Resting comfortably in ICU noncommunicative this a.m. Results Labs 03/12/25 04:36 03/12/25 04:36 Labs: Short CBC 03/12/25 Range/Units 04:36 WBC 20.6 H (3.6-11.0) Thou/mm3 Hgb 11.1 L (12.0-16.0) g/dL Hct 35.8 L (36.0-46.0) % Plt Count 38 L D (140-440) Thou/mm3 BMP 03/12/25 04:36 Sodium 135 L Potassium 3.5 Chloride 95 L Carbon Dioxide 23.2 BUN 21 Creatinine 2.7 H D Glucose 76 Calcium 9.1 Cardiac Enzymes 03/11/25 03/11/25 Range/Units 11:49 20:26 Troponin I 0.403 H* D 0.293 H* (0.0-0.045) ng/mL Liver Function 03/12/25 Range/Units 04:36 Total Bilirubin 8.2 H D (0.3-1.2) mg/dL AST 106 H (0-34) U/L ALT < 7 L (10-49) U/L Alkaline Phosphatase 273 H D (46-116) U/L Albumin 3.4 (3.4-4.8) gm/dL ABG Interpretation ABG results: 03/01/25 03/01/25 03/02/25 09:05 16:01 04:53 ABG pH 7.37 7.33 L 7.44 D ABG pCO2 34 34 35 ABG pO2 99 99 82 L ABG HCO3 20 18 L 24 ABG O2 Saturation 99 H 98 97 ABG Base Excess -5 L -7 L 0 VBG pH VBG pCO2 VBG pO2 VBG Base Excess 03/02/25 03/03/25 03/04/25 08:43 04:28 05:02 ABG pH 7.48 H 7.40 7.42 ABG pCO2 29 L 40 D 42 ABG pO2 130 H D 75 L D 54 L* D ABG HCO3 22 25 27 H ABG O2 Saturation 100 H 96 90 L ABG Base Excess -1 0 2 VBG pH VBG pCO2 VBG pO2 VBG Base Excess 03/05/25 03/06/25 03/06/25 16:21 14:49 16:43 ABG pH 7.40 7.36 ABG pCO2 44 49 H ABG pO2 69 L 68 L ABG HCO3 27 H 28 H ABG O2 Saturation 96 95 ABG Base Excess 2 1 VBG pH 7.38 VBG pCO2 44 VBG pO2 76 H VBG Base Excess 1 03/07/25 03/08/25 03/12/25 04:38 05:25 04:40 ABG pH 7.36 7.37 7.35 ABG pCO2 48 47 45 ABG pO2 64 L 63 L 82 L ABG HCO3 27 H 27 H 25 ABG O2 Saturation 94 94 96 ABG Base Excess 1 1 -1 VBG pH VBG pCO2 VBG pO2 VBG Base Excess Assessment and Plan Additional Assessment & Plan Additional Plan: 1. Likely malignancy involving the liver, significant enlarged lesions since prior MRCP. 2 liver biopsies negative cytology pending. 2. Contact with [facility] reportedly made.. Spoke with today who is wishing for comfort measures at home receiving dialysis and palliative care. 3. Receiving supportive care for multiple comorbidities of liver failure CKD, lactic acidosis, electrolyte imbalances
[2025-03-12 10:29] LABS: Reflex Lactate? Y
--- NOTE | 2025-03-12 10:29 | ESPR_ITS ---
<Statement entered by Francine Duran MD - 03/13/25 12:04> TOTAL CC TIME: 45 MIN I saw and evaluated the patient. I reviewed the resident?s note and agree with findings and plan as documented in the resident?s note. Upon my evaluation, this patient had a high probability of imminent or life- threatening deterioration due to distributive shock which required my direct attention, intervention, and personal management. This time is exclusive of time spent on procedures, which are documented separately if performed. I updated Mrs. Poe and her at bedside. I informed them of my conversations with [facility] liver transplantation team and [place] hepatology team. They are aware that all parties have very high clinical suspicion for hepatocellular carcinoma based on current clinical data available including imaging data. We discussed goals of care. Family understands that transferring is not possible, she is not currently a candidate for hepatocellular carcinoma treatment, and she is not a transplantation candidate. They understand she has persistent shock, and ATN versus end-stage renal disease from hepatorenal syndrome. They wish to have further discussions regarding CODE STATUS and overall goals of care. <Statement entered by Dominick Mejia MD - 03/12/25 18:26> I have reviewed the note and agree with the resident's assessment & plan with exceptions as below. I have personally reviewed labs, imaging, home meds/prior records, examined the patient, formulated and discussed management plan with the IM team. Patient examined at bedside today. No acute overnight events. Patient continuing to be on Levophed, 0.27. After discussion with delimer, patient most likely has diagnosis of cirrhosis and underlying malignancy most likely hepatocellular carcinoma. Discussed with patient in regards to goals of care and at this time they would like to continue with full care. Will transfuse patient platelets as they were 38, and patient got IR PICC line insertion. Patient to also get CT angio chest and abdomen for further workup of liver. Patient to get hemodialysis after scan. Discussed with patient and they were inquiring about hospice and hemodialysis options. With diagnosis of cirrhosis now, will resume lactulose and rifaximin. Patient most likely has hepatorenal syndrome with diagnosis of cirrhosis. Nephrology on consult, appreciate recommendations. Prognosis remains guarded. Patient is not eligible for liver transplant at this time, and patient's liver function continues to worsen. Repeat hematology and chemistry in AM. Will follow-up with scans. #Hepatic Encephalopathy #Shock #NSTEMI type II, likely related to demand ischemia #Acute on Chronic Hypoxic Hypercapnic Respiratory Failure, resolved #Abdominal Pain, worsening #Necrosis of Liver #Perihepatic fluid, s/p hepatic drain #Cirrhosis #Major ileus, resolved #Transaminitis - stable/persistent #Hyperbilirubinemia 2/2 infiltrative cancer - worsening #KADI on CKD stage IIIB - Anuric #Hepatorenal syndrome #HAGMA with underlying metabolic alkalosis - resolved #Hypokalemia - resolved #Hyperkalemia - Resolved #Subclinical hypothyroidism #Hx of Hypothyroidism #Leukocytosis - ongoing #Lactic Acidosis, improving #Unknown source of infection? Dominick Mejia, PGY-2 Internal Medicine Documentation for date of: 03/12/25 Subjective Subjective Interval history: This is a 70-year-old female who was admitted to the ICU for hyperkalemia and altered mental status. She has a history of Yoder cirrhosis. She had a dialysis catheter placed and underwent dialysis for her hyperkalemia. She tolerated well. There have been no acute overnight events. This morning she is awake alert oriented x 3 and appropriate. She is complaining of significant amount of pain. She states that the pain is everywhere . She is afebrile she has a decreased urinary output 03/04-yesterday afternoon/evening required reinstatement of her Levophed. Today she remains awake alert and communicative. There is a rectal tube in place for her liquid stool secondary to her lactulose. She has had a poor urinary output, she is afebrile. She has had 2 out of 2 bottles positive for GPC's and repeat blood cultures were sent 03/07-patient had originally been downgraded to the floor. She was doing well until yesterday. Yesterday she became more hypotensive. Rapid response was called. Despite 10 mg of midodrine and 25 g of albumin she was still hypotensive with a MAP in the 40s therefore the decision was made to bring her to the ICU. She was slightly confused at that point in time. She was brought to the ICU and a left femoral line was placed and she was started on Levophed. This morning she is currently on dialysis. She has significant stool output with a rectal tube in place. She is afebrile, minimal urinary output 03/08: s/p repeat Liver bx: c/w necrosis (NOT CIRRHOSIS) - necrosis is new compared to recent prior bx w/ steatosis. albumin was given 03/09/2025 She had a dialysis catheter placed and underwent dialysis for her hyperkalemia. She tolerated well. There have been no acute overnight events. This morning she is awake alert oriented x 3 and appropriate. She is complaining of significant amount of pain. She states that the pain is everywhere . She is afebrile she has a decreased urinary output 03/10/2025 Pt examined at bedside today. No acute overnight events. Pt reports having some worsening abdominal pain that is diffuse that is new and is also having some back pain. She is inquiring about how her liver is doing. She is also stating she feels a bit anxious in regards to her health. She is agreeable to getting a central line placement. After multiple attempts at central line placement in [facility], line could not be placed (see operative report). No other complaints at this time. 03/11/2025 Overnight patient had chest pain EKG showed frequent PVCs with trigeminy and bigeminy. We are trending her trops. Platelets continue to downtrend to 51. She is currently on Levophed 0.13 and vasopressin 0.03 changing her pain regimen today continuing the fentanyl Q4HR and adding Dilaudid 0.5 Q8HR. Plan for PICC line for TPN tomorrow. She is currently eating 30% of her food (pureed). Spoke with transfer center who says patient has been financially cleared and images have been received. About 400cc of hepatic fluid drained over 12 hours today. Sacral and inguinal wound appear stable, however, non-healing. 03/12/2025 Overnight troponins downtrended and her levophed pressor requirement increased. 900ml yellow, serosanguinous hepatic fluid drained overnight. Dr. Duran spoke with hepatologists at [place] and [facility] who state the most likely scenario is that the patient had chronic liver disease over time due to YODER/obesity causing cirrhosis that may not have been picked up by biopsy. Her longstanding cirrhosis most likely led to what we believe to be hepatocellular carcinoma which is too large to treat causing worsening liver function. She is not a transplant candidate and most likely not a candidate for targeted treatment for liver cancer. Patient examined bedside. Levophed 0.27 vasopressin is on. Labs are not improved and static today, bilirubin continues to elevate to 8.2. Hepatic fluid cytology indicates exudative inflammatory processes as evidenced by LDH 351. Patient and family decided to forego hospice and would like to continue as much treatment and procedures that she can tolerate within reason. Today she is scheduled for PICC line for TPN and will undergo triple phase CT scan for diagnosis of HCC. Exam Vital Signs Temp Pulse Resp BP Pulse Ox O2 Del Method O2 Flow Rate 97.6 F 94 20 106/43 L 95 Nasal Cannula 6 03/12/25 04:00 03/12/25 10:06 03/12/25 08:56 03/12/25 10:06 03/12/25 08:56 03/12/25 04:00 03/12/25 08:56 FiO2 3 03/07/25 08:03 Narrative Exam General: AAOx3, in mild distress, wearing glasses, morbidly obese HEENT: Mucous membranes moist, conjuctiva normal, PERRLA, Cardiovascular: S1, S2, radial pulses +2 bilat, RRR, R TDC present Pulmonary: Difficulty appreciating breath sounds GI: Abdomen slightly distended, R hepatic drain present and draining seroanginous fluid, tenderness throughout abdominal quadrants, Extremities: Anasarca, dorsalis pedis pulses +2 bilaterally. Normal perfusion. Neuro: AAOx3, no gross focal neurological deficits Skin: Right inguinal fold shows non-draining ulcer that does not appear to be infected at this time, however it appears to be about 2 cm deep and 0.5 -1.0 cm in circumference, multiple areas of purpura throughout right side of abdomen from fall. Superficial sacral pressure lesions 2-3cms in circumference. Objective Labs 03/12/25 04:36 03/12/25 04:36 Labs: Laboratory Results - last 24 hr 03/11/25 03/11/25 03/12/25 11:49 20:26 04:36 WBC 20.6 H RBC 3.58 L Hgb 11.1 L Hct 35.8 L MCV 100 MCH 31.0 MCHC 31.0 RDW Std Deviation 70.0 H Plt Count 38 L D Neut % (Auto) 74 Lymph % (Auto) 14 [place] % (Auto) 9 Eos % (Auto) 0 Baso % (Auto) 1 Neut # (Auto) 15.4 H Lymph # (Auto) 2.8 [place] # (Auto) 1.9 H Eos # (Auto) 0.0 Baso # (Auto) 0.1 Immature Gran # (Auto) 0.40 H Absolute Nucleated RBC 0.03 H Immature Gran % 2 H Nucleated RBC % 0 PT 17.9 H INR 1.8 H APTT 48.7 H Puncture Site ABG pH ABG pCO2 ABG pO2 ABG HCO3 ABG O2 Saturation ABG Base Excess Oxygen Liter Flow FiO2 Sodium 135 L Potassium 3.5 Chloride 95 L Carbon Dioxide 23.2 Anion Gap 17 H BUN 21 Creatinine 2.7 H D Estim Creat Clear Calc 25.4 L eGFR 19 L BUN/Creatinine Ratio 8 L Glucose 76 Calculated Osmolality 272 L Lactic Acid Calcium 9.1 Corrected Calcium 9.6 Phosphorus 3.4 Magnesium 2.0 Total Bilirubin 8.2 H D AST 106 H ALT < 7 L Alkaline Phosphatase 273 H D Troponin I 0.403 H* D 0.293 H* Total Protein 5.7 Albumin 3.4 Globulin 2.3 Albumin/Globulin Ratio 1.5 Misc Test Result Platelets confirmed 03/12/25 03/12/25 04:40 07:19 WBC RBC Hgb Hct MCV MCH MCHC RDW Std Deviation Plt Count Neut % (Auto) Lymph % (Auto) [place] % (Auto) Eos % (Auto) Baso % (Auto) Neut # (Auto) Lymph # (Auto) [place] # (Auto) Eos # (Auto) Baso # (Auto) Immature Gran # (Auto) Absolute Nucleated RBC Immature Gran % Nucleated RBC % PT INR APTT Puncture Site Arterial Line ABG pH 7.35 ABG pCO2 45 ABG pO2 82 L ABG HCO3 25 ABG O2 Saturation 96 ABG Base Excess -1 Oxygen Liter Flow 6 FiO2 21 Sodium Potassium Chloride Carbon Dioxide Anion Gap BUN Creatinine Estim Creat Clear Calc eGFR BUN/Creatinine Ratio Glucose Calculated Osmolality Lactic Acid 2.8 H Calcium Corrected Calcium Phosphorus Magnesium Total Bilirubin AST ALT Alkaline Phosphatase Troponin I Total Protein Albumin Globulin Albumin/Globulin Ratio Misc Test Result ABG Interpretation ABG results: 03/01/25 03/01/25 03/02/25 09:05 16:01 04:53 ABG pH 7.37 7.33 L 7.44 D ABG pCO2 34 34 35 ABG pO2 99 99 82 L ABG HCO3 20 18 L 24 ABG O2 Saturation 99 H 98 97 ABG Base Excess -5 L -7 L 0 VBG pH VBG pCO2 VBG pO2 VBG Base Excess 03/02/25 03/03/25 03/04/25 08:43 04:28 05:02 ABG pH 7.48 H 7.40 7.42 ABG pCO2 29 L 40 D 42 ABG pO2 130 H D 75 L D 54 L* D ABG HCO3 22 25 27 H ABG O2 Saturation 100 H 96 90 L ABG Base Excess -1 0 2 VBG pH VBG pCO2 VBG pO2 VBG Base Excess 03/05/25 03/06/25 03/06/25 16:21 14:49 16:43 ABG pH 7.40 7.36 ABG pCO2 44 49 H ABG pO2 69 L 68 L ABG HCO3 27 H 28 H ABG O2 Saturation 96 95 ABG Base Excess 2 1 VBG pH 7.38 VBG pCO2 44 VBG pO2 76 H VBG Base Excess 1 03/07/25 03/08/25 03/12/25 04:38 05:25 04:40 ABG pH 7.36 7.37 7.35 ABG pCO2 48 47 45 ABG pO2 64 L 63 L 82 L ABG HCO3 27 H 27 H 25 ABG O2 Saturation 94 94 96 ABG Base Excess 1 1 -1 VBG pH VBG pCO2 VBG pO2 VBG Base Excess Quality Measures Quality Measures VTE prophylaxis Advance care planning discussed with:: patient and spouse Assessment & Plan Assessment Current Active Medications: Generic Name Dose Route Start Last Admin Trade Name Freq PRN Reason Stop Dose Admin Acetaminophen 325 mg 03/11/25 12:55 Acetaminophen Rosario 325 Mg/10 Ml Udc PO 04/07/25 09:45 Q6HR PRN FEVER >100.4 OR PAIN 1-3 Albuterol/Ipratropium 3 ml 03/04/25 07:03 03/06/25 15:26 Albuterol/Ipratropium (Duoneb) Rt Rosario 3 Ml Nebu INH 03/31/25 14:59 3 ml Q4HRRT PRN Administration wheeze Artificial Tears 0 drop 03/02/25 08:48 03/07/25 08:32 Artificial Tears 225 Drop/15 Ml Btl BOTH EYES 04/01/25 08:47 2 drops PRN PRN Administration TO KEEP EYES MOIST Balsam [place]/Big Timber Oil 0 gm 03/06/25 21:00 03/12/25 09:40 Balsam [place]/Big Timber Oil (Venelex) 60 Gm Tube TOP 04/05/25 20:59 1 applicatio BID RAMON Administration Fentanyl Citrate 25 mcg 03/11/25 13:12 03/12/25 04:30 Fentanyl Cit Inj 50 Mcg/Ml Amp 2ml IVP 03/16/25 12:54 25 mcg Q4HR PRN Administration BREAKTHROUGH PAIN Protocol Heparin Sodium (Porcine) 3,100 unit 03/01/25 18:45 03/11/25 14:06 Heparin Sod Inj 1000 Unit/Ml Vial 10 Ml INDWELLCAT 03/15/25 18:44 3,100 unit X1 PRN Administration DIALYSIS Hydromorphone HCl 0.5 mg 03/11/25 13:26 03/12/25 06:25 Hydromorphone Inj 2 Mg/Ml Vial IVP 03/16/25 13:25 0.5 mg Q8HR PRN Administration moderat to severe pain 6-7 Norepinephrine/Dextrose 8 mg in 250 mls @ 12.328 mls/hr 03/06/25 15:58 03/12/25 10:06 Levophed In D5w 8mg/250ml IV 04/05/25 15:57 0.29 mcg/kg/min .[id number] PRN 71.501 mls/hr PER PROTOCOL Administration Protocol 0.05 MCG/KG/MIN Albumin Human 25 gm in 100 mls @ 0 mls/hr 03/09/25 10:00 03/09/25 10:30 Albuminex 25% Ivpb IV 300 mls/hr Q30MIN PRN Administration To maintain SBP>90 Per Protocol Vasopressin/Sodium Chloride 20 unit in 100 mls @ 9 mls/hr 03/09/25 13:05 03/12/25 10:06 Vasostrict/Ns Ivpb IV 04/08/25 13:04 0.03 unit/min .[id number] PRN 9 mls/hr PER PROTOCOL Administration Protocol 0.03 UNIT/MIN Albumin Human 12.5 gm in 250 mls @ 100 mls/hr 03/11/25 15:30 03/12/25 09:40 Albuminex 5% Ivpb IV 03/14/25 14:44 100 mls/hr Q6H RAMON Administration Piperacillin/Tazobactam/Dextrose 3.375 gm in 50 mls @ 12.5 mls/hr 03/12/25 14:00 Zosyn IV 03/17/25 13:59 Q8HR RAMON Protocol Lactulose 20 gm 03/12/25 10:30 Lactulose Syrup 20 Gm/30 Ml Udc NG 04/11/25 10:29 QDAY RAMON Protocol Levothyroxine Sodium 100 mcg 03/11/25 06:00 03/12/25 05:25 Levothyroxine Inj 100 Mcg Vial IV 04/10/25 05:59 100 mcg ACBR RAMON Administration Lidocaine 1 patch 03/02/25 11:57 03/11/25 08:00 Lidocaine 5% 1 Patch TOP 04/01/25 11:56 1 patch UD PRN Administration localized pain Protocol Miconazole Nitrate 0 gm 03/02/25 12:00 03/12/25 09:40 Miconazole Nitrate Cr 2% 15 Gm Tube TOP 04/01/25 11:59 1 applicatio BID RAMON Administration Midodrine 10 mg 03/07/25 09:29 03/07/25 10:17 Midodrine 5 Mg Tablet PO 04/03/25 09:59 10 mg Q6H PRN Administration MAP less than 65 Ondansetron HCl 4 mg 03/01/25 14:01 Ondansetron Inj 2 Mg/Ml Inj 2 Ml IVP 03/31/25 14:00 Q6H PRN NAUSEA OR VOMITING Protocol Pantoprazole Sodium 40 mg 03/11/25 03:50 03/12/25 09:39 Pantoprazole Inj 40 Mg Vial IVP 04/10/25 03:49 40 mg QDAY RAMON Administration Pharmacy Consult 1 each 03/09/25 13:04 Pharmacy Renal Dose Adjustment 1 Ea XX 04/08/25 13:03 PRN PRN CONSULT Rifaximin 550 mg 03/12/25 21:00 Rifaximin 550 Mg Tablet NG 03/19/25 20:59 BID RAMON Sodium Chloride 3 ml 03/01/25 11:02 Sodium Chloride Rt Rosario 0.9% 3 Ml Nebu INH 03/31/25 11:01 PRN PRN SOLN Plan Assessment: 70-year-old female with a history of chronic kidney disease (CKD), cirrhosis, hypothyroidism, recent giardia infection, and chronic back pain (oxy q4), was recently admitted with severe hyperkalemia (K 7.1), KADI, and generalized weakness, who presented from [facility] due to encephalopathy. Bounced back to ICU due to shock/refractory hypotension requiring pressor support. Evaluating patient for worsening liver function and unknown source of infection. Initiated conversation with transfer center about hepatic disfunction, currently cleared by [place] department. [employer] #Hepatic Encephalopathy - resolved Patient AOx3 Ddx hepatic failure, renal failure, or underlying infection Dx studies Blood cx, urinalysis, c. diff, Lactic acid RX Resuming lactulose, continuing rifaximin CV #Shock Ddx distributive, vasodialotory shock state, from what we think is infection, which she is at increased risk for due to concern for hepatic malignancy with confirmed necrosis. Less likely cards due to 03/02/2025 ECHO LVEF 50-55%. Mild mitral valve regurgitation, mild tricuspid regurgitation. EKG HR 78 QTc 452 HI 200 QRSd 122 Dx Repeat blood cultures negative liver bx: necrosis, urine cx: no growth Rx: Levofed: 0.27, vaso: 0.03 CTCAP w/con: resulted -Repeat blood cx repeat urinalysis, C diff -Zosyn at this time RRx: If necrosis or function of liver worsens PULM - Bilateral pleural effusions, atelectasis vs PNA at lung base #Acute on Chronic Hypoxic Hypercapnic Respiratory Failure, resolved Underlying respiratory acidosis with adequate metabolic compensation DDX OHS, atelectasis, COPD, CHF Dx CXR, CTAP RX ISS, duonebs, Nasal cannula RRX - working so far, no respiratory failure in ICU GI #Hepatocellular carcinoma #Abdominal Pain, worsening #Necrosis of Liver #Perihepatic fluid, s/p hepatic drain FUP hepatology consult recommends Triple phase CT scan with lvier protocol for more definitive diagnosis. Dr. Duran spoke with hepatologists at [place] and [facility] who state the most likely scenario is that the patient had chronic liver disease over time due to YODER/obesity causing cirrhosis that may not have been picked up by biopsy. Her longstanding cirrhosis most likely led to what we believe to be hepatocellular carcinoma which is too large to treat causing worsening liver function. She is not a transplant candidate and most likely not a candidate for targeted treatment for liver cancer. DDX: Malignancy of liver, intra-abdominal infection, SBP. MRCP did not show intra or extra hepatic stones, CBD dilatation. Repeat liver bx shows tissue necrosis, however no malignancy. Due to persistent lactic acidosis, and pressor requirement, pt likely has a underlying malignancy, despite negative liver biopsies. Pt would benefit from hepatology consult from a outside facility for further workup, however, multiple liver lesions and further compensation of liver function likely fits differential of malignancy of liver. AFP negative, CA 19-9 pending, Hepatitis Panel Negative. Pending other cultures of perihepatic fluid (SAAG 1.9), however cytology to be done due to concern for malignant ascites. Perihepatic fluid cytology: Yellow hazy white blood cell 504 red blood cell 9000 polynuclear white blood cells 550. peritoneal mononucleated white blood cells 50. Total protein 3. total albumin 1.6 LDH 351 stool WBC 92 Dx CXR, CTAP, CT triple phase liver protocol. RX Family wants full treatment. Hepatology transfer discussion has been done, continue with hepatic drain, follow up with Cultures of body fluid, Follow up Fluid cytology RRX - If pt's liver necrosis worsens #HX of YODER, confirmed with bx MELD NA: 30, Child Spicer:10-11 Complicated by enlarging liver mass seen on MRI. Ddx As above Dx As above Rx Will remove lactulose, Rifaximin, and rectal tube at this time. Continue trending CMP #Major ileus, resolved NGT in place #Transaminitis - stable/persistent ddx YODER, liver necrosis, Plan: -CTM LFTs #Hyperbilirubinemia 2/2 infiltrative cancer - worsening T Bili 1.2 --> 2.8 --> 3.5 --> 6.9 Most likely in the setting of worsening liver function with lobulated large malignant neoplasm seen on MRCP. Normal gallbladder. Recent abd US showed no stones. No fever, no jaundice seen. Plan: -CTM for abdominal pain when patient is more oriented. -FUP CT bx #Hepatorenal Type 1 Diagnosis of exclusion, patient did not improve on two days of octreotide, double Cr>2.5 or a decrease in Cr Cl by half over a two week period, with urine output less than 500cc/day. Rx exclude other kidney injruoes, pre-renal, nephrotoxic drugs, obstructive nephropathy, and renal parenchymal disease RENAL #KADI on CKD stage IIIB - Anuric 2/2 ATN hypotension and poor perfusion from antihypertensives, narcotics, and muscle relaxers BUN 102 Cr 3.7 Dx urine lytes ordered RX Nephro consulted (Dr. Mccauley) HDS #HAGMA with underlying metabolic alkalosis - resolved Ddx lactic acidosis, renal failure, uremia HCO3 25, pH 7.37 pCO2 47--> Rubio PCO2= 45.5+/- 2 Delta-Delta, (15-12)/(25-24)= 3 Rx HDS #Hypokalemia - resolved K 3.0 most likely secondary to renal failure. Plan: -Replete as necessary. #Hyperkalemia - Resolved Ddx KADI on CKD Plan: -CTM with repeat renal panels -Kayexelate -Insulin -Calcium gluconate No active problems ENDO #Subclinical hypothyroidism #Hx of Hypothyroidism TSH 8.58, actually much improved from most recent admission. Plan: -re-evaluate thyroid functioning in 6 weeks outpatient following thyroid medication changes HEME #Leukocytosis - ongoing DDx most likely reactive to stress, could be 2/2 infection procal elevated, UA dirty Plan: -Repeat UA -Trend WBC -Zosyn #Lactic Acidosis, improving Ongoing lactic acidosis complicated by poor clearance in the setting of liver failure/malignancy. Plan -CTM -IVF when patient is no longer volume overloaded. -FUP CT bx DERM #Skin shearing/pressure wound Patient has inguinal crease wound 0.5-1.0cm in depth, packed, not weeping or oozing. Another superifical inguinal surface wound. Sacral superifical presure wound. Skin dehisces on traction Dx fall one month ago, steroid decreases skin strength, poor wound healing Rx wound care ID #Unknown source of infection? Patient lactic acid is persistent. Inguinal wound source appears unlikely due to no signs of infection. Possibly due to hidden abscess? Most likely due to worsening liver cancer. Plan: -F/u with cultures #ICU Health maintenance Mechanical ventilation: None Sedation: None Diet: Dysphagia 1 - pureed, NPO at midnight for PICC line for TPN DVT prophylaxis: Heparin GI prophylaxis: None Falcon: Yes Lines: PIV, L femoral, R tunneled dialysis catheter. Antibiotics: Zosyn CODE STATUS: Full Patient seen and care discussed with my attending physician, Dr. Duran, and Dr. Dominick Mejia Note written by Andrey Bhatt PGY-1 This document was transcribed using voice recognition technology. Minor inaccuracies may be present.
[2025-03-12] MEDS: LACTULOSE SYRUP 20 GM/30 ML UDC NG (10:48)
--- NOTE | 2025-03-12 10:49 | PC.NURSE ---
recvd call from ICU doctor, will hold off on PICC line orde for now.
[2025-03-12 10:50] LABS: Lactic Acid, 3 HR 2.8 mMol/L (0.4-2.0)
--- NOTE | 2025-03-12 11:06 | XR_ITS ---
Examination: CTA abdomen with intravenous contrast 2-D reconstructions 3-D reconstructions, vascular Date and time of exam: March 12, 2025, 1732 hours, comparison CT examination March 07, 2025 INDICATIONS: Diagnosis liver cancer, multiple hepatic lesions on earlier imaging last week CTDI: vol (mGy) 97.5 DLP: (mGycm) 3559 Technique: Multiple axial images of the abdomen obtained 1.50 mm slice thickness 2-D sagittal and coronal reconstructions. 3-D angiographic renderings, 3-D volume renderings, 3D post processing, vascular maximum intensity projections obtained. Contrast administered is 100 cc [id number]. Low dose protocols were performed. One or more of the following dose reduction techniques were used; automated exposure control, adjustment of the mA and/or KV according to patient size, use of iterative reconstruction technique. Findings: Pneumonia both bases with small pleural effusions Cirrhosis, liver nodular in contour 9 cm posterior right lobe liver lesion, image 71 with multiple satellite smaller liver lesions Splenomegaly Esophageal varices Perigastric varices Mild ascites Anasarca No pancreatic mass No hydronephrosis Heavy abdominal aortic calcification No bowel obstruction No diverticulitis IMPRESSION: Bibasilar pneumonia with small pleural effusions Cirrhosis 9 cm posterior right lobe liver lesion with multiple satellite smaller liver lesions, highest on the differential list primary hepatocellular carcinoma Splenomegaly Esophageal and perigastric varices Mild ascites
[2025-03-12] MEDS: HEPARIN SOD LOCK SYR 100 UNIT/ML 500 UNIT STFIELD (15:18)
[2025-03-12] MEDS: LIDOCAINE INJ PF 1% 30 ML VIAL EPID (15:18)
--- NOTE | 2025-03-12 15:19 | PC.SS ---
Update: Patient to obtain PICC line today. Patient to receive CT of abdomen. Dialysis session scheduled for later today. Transfer remains pending.
[2025-03-12] MEDS: Norepinephrine/D5W 8mg/250ml 8 MG/250 ML BAG 76.432 MG IV (17:01)
[2025-03-12] MEDS: guaiFENesin SYRUP 200 MG/10 ML UDC 100 MG PO (17:47)
[2025-03-12] MEDS: Norepinephrine/D5W 8mg/250ml 8 MG/250 ML BAG 143.002 MG IV ×2 (19:11→20:54)
[2025-03-12] MEDS: HEPARIN SOD INJ 1000 UNIT/ML VIAL 10 ML 3100 UNIT INDWELLCAT (19:50)
[2025-03-12] MEDS: Norepinephrine/NS 16mg/250ml 16 MG/250 ML BAG 64.869 MG IV (22:50)
[2025-03-13] VITALS (78 sets, daily range): BP systolic 34–262; BP diastolic 16–262; PULSE 81–125; RESP 12–37; TEMP 36.4–36.6; O2SAT 85–98; BMI 43.8
[2025-03-13] MEDS: Norepinephrine/NS 16mg/250ml 16 MG/250 ML BAG 55.922 MG IV (02:26)
[2025-03-13] MEDS: fentaNYL CIT INJ 50 mCg/ML AMP 2ML 25 MCG IVP ×3 (03:37→11:29)
[2025-03-13] MEDS: ALBUMIN HUMAN-KJDA 25% IVPB 25 GM/100 ML BTL IV ×3 (03:54→11:47)
--- NOTE | 2025-03-13 05:00 | XR_ITS ---
EXAMINATION: AP chest single view TECHNIQUE: AP portable semiupright chest single view Date and time: March 13, 2025, 0845 hours, comparison March 12, 2025 INDICATIONS: Hypoxia, history pneumonia FINDINGS: Atelectasis and/or pneumonia left base Normal heart size Orogastric tube in the stomach Right internal jugular dialysis catheter tip satisfactory position Mild vascular congestion Prominent osteopenia IMPRESSION: Atelectasis versus pneumonia left base, clinical correlation advised
[2025-03-13] MEDS: HYDROmorphone INJ 2 MG/ML VIAL 0.5 MG IVP (05:32)
[2025-03-13] MEDS: PIPER/TAZO 3.375 GM PREMIX 3.375 GM/50 ML BAG IV (05:40)
[2025-03-13 05:55] LABS: Basophils # (Auto) 0.1 Thou/mm3 (0.0-0.2); Basophils % (Auto) 1 % (0-2.5); Eosinophils # (Auto) 0.1 Thou/mm3 (0.0-0.5); Eosinophils % (Auto) 0 % (0-10); Hematocrit 36.1 % (36.0-46.0); Hemoglobin 11.5 g/dL (12.0-16.0); Immature Granulocytes Auto 0.74 Thou/mm3 (0.00-0.00); Lymphocytes # (Auto) 3.2 Thou/mm3 (1.0-4.8); Lymphocytes % (Auto) 13 % (10-50); Mean Corpuscular HGB Conc 31.9 g/dl (31.0-37.0); Mean Corpuscular Hemoglobin 31.8 pg (25.0-35.0); Mean Corpuscular Volume 100 fL (80-100); Monocytes # (Auto) 2.1 Thou/mm3 (0.0-0.8); Monocytes % (Auto) 9 % (0-12); Neutrophils # (Auto) 17.6 Thou/mm3 (1.8-7.7); Neutrophils % (Auto) 74 % (37-80); Nucleated Red Blood Cell # 0.14 Thou/mm3 (0.00-0.00); Nucleated Red Blood Cell % 1 /100 WBC (0); RDW Standard Deviation 71.9 fL (36.4-46.3); Red Blood Count 3.62 Miln/mm3 (4.00-5.20); White Blood Count 23.8 Thou/mm3 (3.6-11.0)
[2025-03-13 06:22] LABS: INR 1.9 (0.9-1.3); Partial Thromboplastin Time 47.9 Seconds (22.0-36.0); Prothrombin Time 18.9 Seconds (9.0-12.2)
[2025-03-13 06:29] LABS: CA 19-9 Antigen* 33 U/mL (<34)
[2025-03-13 06:55] LABS: Alanine Aminotransferase < 7 U/L (10-49); Albumin, Serum 3.5 gm/dL (3.4-4.8); Albumin/Globulin Ratio 1.5 (1.2-2.2); Alkaline Phosphatase 298 U/L (46-116); Anion Gap 17 (7-16); Aspartate Amino Transferase 135 U/L (0-34); BUN/Creatinine Ratio 8 Ratio (12-20); Bilirubin,Total 10.5 mg/dL (0.3-1.2); Blood Urea Nitrogen 22 mg/dL (9-23); Calcium 9.2 mg/dL (8.3-10.6); Calcium (Corrected) 9.6 mg/dL (8.5-10.1); Carbon Dioxide 18.9 mMol/L (20.0-31.0); Chloride 97 mMol/L (98-107); Creatinine (Component) 2.6 mg/dL (0.6-1.3); Estimated Creatinine Clearance 26.3 mL/min (>60); Globulin 2.4 gm/dL (2.3-3.5); Glucose 54 mg/dL (74-106); Magnesium 1.8 mg/dL (1.6-2.6); Osmolality,Calculated 267 (275-295); Phosphorous 3.7 mg/dL (2.4-5.1); Potassium 4.0 mMol/L (3.4-5.1); Sodium 133 mMol/L (136-145); Total Protein 5.9 gm/dL (5.7-8.2); eGFR 19 See Note
--- NOTE | 2025-03-13 07:03 | ESPR_ITS ---
<Statement entered by Francine Duran MD - 03/14/25 12:20> TOTAL CC TIME: 45 MIN TOTAL TIME: 45MINUTES ON DIRECT MEDICAL CARE, MANAGEMENT - COORDINATION AND COUNSELING > 50% OF TOTAL TIME I saw and evaluated the patient. I reviewed the resident?s note and agree with findings and plan as documented in the resident?s note. Upon my evaluation, this patient had a high probability of imminent or life- threatening deterioration due to distributive shock which required my direct attention, intervention, and personal management. This time is exclusive of time spent on procedures, which are documented separately if performed. Mrs. Poe's distributive shock is getting worse she is on much higher doses of pressors. I suspect end-stage liver failure is the main driving factor. Although we continue to suspect cryptic septic shock cultures remain negative. The fact is that her hepatocellular cancer is very severe and she is unfortunately suffering consequences that are life-threatening. Goals of care were discussed with the family and Today she decided on pursuing comfort care measures. <Statement entered by Dominick Mejia MD - 03/13/25 17:26> I have reviewed the note and agree with the resident's assessment & plan with exceptions as below. I have personally reviewed labs, imaging, home meds/prior records, examined the patient, formulated and discussed management plan with the IM team. Pt examined at bedside today. Pt's condition continues to be guarded with worsening liver function (T Bili ~11), Vasopressor requirement continued to increase and continued to be Anuric. Discussed with patient and patient's family who wished to change CODE STATUS to DNR, and to pursue comfort care. Comfort care measures were initiated. #Comfort Care #Hepatic Encephalopathy #Shock #NSTEMI type II, likely related to demand ischemia #Acute on Chronic Hypoxic Hypercapnic Respiratory Failure, resolved #Abdominal Pain, worsening #Necrosis of Liver #Perihepatic fluid, s/p hepatic drain #Cirrhosis #Major ileus, resolved #Transaminitis - stable/persistent #Hyperbilirubinemia 2/2 infiltrative cancer - worsening #KADI on CKD stage IIIB - Anuric #Hepatorenal syndrome #HAGMA with underlying metabolic alkalosis - resolved #Hypokalemia - resolved #Hyperkalemia - Resolved #Subclinical hypothyroidism #Hx of Hypothyroidism #Leukocytosis - ongoing #Lactic Acidosis, improving #Unknown source of infection? Dominick Mejia, PGY-2 Internal Medicine Documentation for date of: 03/13/25 Subjective Subjective Interval history: This is a 70-year-old female who was admitted to the ICU for hyperkalemia and altered mental status. She has a history of Yoder cirrhosis. She had a dialysis catheter placed and underwent dialysis for her hyperkalemia. She tolerated well. There have been no acute overnight events. This morning she is awake alert oriented x 3 and appropriate. She is complaining of significant amount of pain. She states that the pain is everywhere . She is afebrile she has a decreased urinary output 03/04-yesterday afternoon/evening required reinstatement of her Levophed. Today she remains awake alert and communicative. There is a rectal tube in place for her liquid stool secondary to her lactulose. She has had a poor urinary output, she is afebrile. She has had 2 out of 2 bottles positive for GPC's and repeat blood cultures were sent 03/07-patient had originally been downgraded to the floor. She was doing well until yesterday. Yesterday she became more hypotensive. Rapid response was called. Despite 10 mg of midodrine and 25 g of albumin she was still hypotensive with a MAP in the 40s therefore the decision was made to bring her to the ICU. She was slightly confused at that point in time. She was brought to the ICU and a left femoral line was placed and she was started on Levophed. This morning she is currently on dialysis. She has significant stool output with a rectal tube in place. She is afebrile, minimal urinary output 03/08: s/p repeat Liver bx: c/w necrosis (NOT CIRRHOSIS) - necrosis is new compared to recent prior bx w/ steatosis. albumin was given 03/09/2025 She had a dialysis catheter placed and underwent dialysis for her hyperkalemia. She tolerated well. There have been no acute overnight events. This morning she is awake alert oriented x 3 and appropriate. She is complaining of significant amount of pain. She states that the pain is everywhere . She is afebrile she has a decreased urinary output 03/10/2025 Pt examined at bedside today. No acute overnight events. Pt reports having some worsening abdominal pain that is diffuse that is new and is also having some back pain. She is inquiring about how her liver is doing. She is also stating she feels a bit anxious in regards to her health. She is agreeable to getting a central line placement. After multiple attempts at central line placement in [facility], line could not be placed (see operative report). No other complaints at this time. 03/11/2025 Overnight patient had chest pain EKG showed frequent PVCs with trigeminy and bigeminy. We are trending her trops. Platelets continue to downtrend to 51. She is currently on Levophed 0.13 and vasopressin 0.03 changing her pain regimen today continuing the fentanyl Q4HR and adding Dilaudid 0.5 Q8HR. Plan for PICC line for TPN tomorrow. She is currently eating 30% of her food (pureed). Spoke with transfer center who says patient has been financially cleared and images have been received. About 400cc of hepatic fluid drained over 12 hours today. Sacral and inguinal wound appear stable, however, non-healing. 03/12/2025 Overnight troponins downtrended and her levophed pressor requirement increased. 900ml yellow, serosanguinous hepatic fluid drained overnight. Dr. Duran spoke with hepatologists at [place] and [facility] who state the most likely scenario is that the patient had chronic liver disease over time due to YODER/obesity causing cirrhosis that may not have been picked up by biopsy. Her longstanding cirrhosis most likely led to what we believe to be hepatocellular carcinoma which is too large to treat causing worsening liver function. She is not a transplant candidate and most likely not a candidate for targeted treatment for liver cancer. Patient examined bedside. Levophed 0.27 vasopressin is on. Labs are not improved and static today, bilirubin continues to elevate to 8.2. Hepatic fluid cytology indicates exudative inflammatory processes as evidenced by LDH 351. Patient and family decided to forego hospice and would like to continue as much treatment and procedures that she can tolerate within reason. Today she is scheduled for PICC line for TPN and will undergo triple phase CT scan for diagnosis of HCC. 03/13/2025 Family and patient decided it is in the patients best interest to initiate comfort care. She has changed her code status to DNR. She is being titrated off of drips and downgrading to floors. Exam Vital Signs Temp Pulse Resp BP Pulse Ox O2 Del Method O2 Flow Rate 97.9 F 101 H 20 126/47 L 98 Nasal Cannula 1 03/13/25 04:00 03/13/25 06:42 03/13/25 06:42 03/13/25 02:26 03/13/25 06:42 03/13/25 04:00 03/13/25 06:42 FiO2 3 03/07/25 08:03 Narrative Exam General: AAOx3, in mild distress, wearing glasses, morbidly obese, jaundiced HEENT: Mucous membranes moist, scleral icterus, PERRLA, Cardiovascular: S1, S2, radial pulses +2 bilat, RRR, R TDC present Pulmonary: Difficulty appreciating breath sounds GI: Abdomen slightly distended, R hepatic drain removed, tenderness throughout abdominal quadrants, Extremities: Anasarca, dorsalis pedis pulses +2 bilaterally. Normal perfusion. Neuro: AAOx3, no gross focal neurological deficits Skin: Right inguinal fold shows non-draining ulcer that does not appear to be infected at this time, however it appears to be about 2 cm deep and 0.5 -1.0 cm in circumference, multiple areas of purpura throughout right side of abdomen from fall. Superficial sacral pressure lesions 2-3cms in circumference. Objective Labs 03/13/25 05:00 03/13/25 05:00 Labs: Laboratory Results - last 24 hr 03/07/25 03/12/25 03/12/25 07:30 04:36 07:19 PT INR APTT Sodium 135 L Potassium 3.5 Chloride 95 L Carbon Dioxide 23.2 Anion Gap 17 H BUN 21 Creatinine 2.7 H D Estim Creat Clear Calc 25.4 L eGFR 19 L BUN/Creatinine Ratio 8 L Glucose 76 Calculated Osmolality 272 L Lactic Acid 2.8 H Calcium 9.1 Corrected Calcium 9.6 Phosphorus 3.4 Magnesium 2.0 Total Bilirubin 8.2 H D AST 106 H ALT < 7 L Alkaline Phosphatase 273 H D Total Protein 5.7 Albumin 3.4 Globulin 2.3 Albumin/Globulin Ratio 1.5 CA 19-9 Antigen 33 Misc Test Result Platelets confirmed Blood Bank Comment 03/12/25 03/12/25 03/13/25 07:39 10:43 05:00 PT 18.9 H INR 1.9 H APTT 47.9 H Sodium 133 L Potassium 4.0 D Chloride 97 L Carbon Dioxide 18.9 L Anion Gap 17 H BUN 22 Creatinine 2.6 H Estim Creat Clear Calc 26.3 L eGFR 19 L BUN/Creatinine Ratio 8 L Glucose 54 L Calculated Osmolality 267 L Lactic Acid 2.8 H Calcium 9.2 Corrected Calcium 9.6 Phosphorus 3.7 Magnesium 1.8 Total Bilirubin 10.5 H D AST 135 H ALT < 7 L Alkaline Phosphatase 298 H D Total Protein 5.9 Albumin 3.5 Globulin 2.4 Albumin/Globulin Ratio 1.5 CA 19-9 Antigen Misc Test Result Blood Bank Comment PLATP Ready ABG Interpretation ABG results: 03/01/25 03/01/25 03/02/25 09:05 16:01 04:53 ABG pH 7.37 7.33 L 7.44 D ABG pCO2 34 34 35 ABG pO2 99 99 82 L ABG HCO3 20 18 L 24 ABG O2 Saturation 99 H 98 97 ABG Base Excess -5 L -7 L 0 VBG pH VBG pCO2 VBG pO2 VBG Base Excess 03/02/25 03/03/25 03/04/25 08:43 04:28 05:02 ABG pH 7.48 H 7.40 7.42 ABG pCO2 29 L 40 D 42 ABG pO2 130 H D 75 L D 54 L* D ABG HCO3 22 25 27 H ABG O2 Saturation 100 H 96 90 L ABG Base Excess -1 0 2 VBG pH VBG pCO2 VBG pO2 VBG Base Excess 03/05/25 03/06/25 03/06/25 16:21 14:49 16:43 ABG pH 7.40 7.36 ABG pCO2 44 49 H ABG pO2 69 L 68 L ABG HCO3 27 H 28 H ABG O2 Saturation 96 95 ABG Base Excess 2 1 VBG pH 7.38 VBG pCO2 44 VBG pO2 76 H VBG Base Excess 1 03/07/25 03/08/25 03/12/25 04:38 05:25 04:40 ABG pH 7.36 7.37 7.35 ABG pCO2 48 47 45 ABG pO2 64 L 63 L 82 L ABG HCO3 27 H 27 H 25 ABG O2 Saturation 94 94 96 ABG Base Excess 1 1 -1 VBG pH VBG pCO2 VBG pO2 VBG Base Excess Quality Measures Quality Measures VTE prophylaxis Advance care planning discussed with:: patient and spouse Assessment & Plan Assessment Current Active Medications: Generic Name Dose Route Start Last Admin Trade Name Freq PRN Reason Stop Dose Admin Acetaminophen 325 mg 03/11/25 12:55 Acetaminophen Rosario 325 Mg/10 Ml Udc PO 04/07/25 09:45 Q6HR PRN FEVER >100.4 OR PAIN 1-3 Albuterol/Ipratropium 3 ml 03/04/25 07:03 03/06/25 15:26 Albuterol/Ipratropium (Duoneb) Rt Rosario 3 Ml Nebu INH 03/31/25 14:59 3 ml Q4HRRT PRN Administration wheeze Artificial Tears 0 drop 03/02/25 08:48 03/07/25 08:32 Artificial Tears 225 Drop/15 Ml Btl BOTH EYES 04/01/25 08:47 2 drops PRN PRN Administration TO KEEP EYES MOIST Balsam [place]/Preston Oil 0 gm 03/06/25 21:00 03/13/25 00:00 Balsam [place]/Preston Oil (Venelex) 60 Gm Tube TOP 04/05/25 20:59 Not Given BID RAMON Fentanyl Citrate 25 mcg 03/11/25 13:12 03/13/25 03:37 Fentanyl Cit Inj 50 Mcg/Ml Amp 2ml IVP 03/16/25 12:54 25 mcg Q4HR PRN Administration BREAKTHROUGH PAIN Protocol Heparin Sodium (Porcine) 3,100 unit 03/01/25 18:45 03/12/25 19:50 Heparin Sod Inj 1000 Unit/Ml Vial 10 Ml INDWELLCAT 03/15/25 18:44 3,100 unit X1 PRN Administration DIALYSIS Hydromorphone HCl 0.5 mg 03/11/25 13:26 03/13/25 05:32 Hydromorphone Inj 2 Mg/Ml Vial IVP 03/16/25 13:25 0.5 mg Q8HR PRN Administration moderat to severe pain 6-7 Albumin Human 25 gm in 100 mls @ 0 mls/hr 03/09/25 10:00 03/13/25 03:54 Albuminex 25% Ivpb IV 300 mls/hr Q30MIN PRN Administration To maintain SBP>90 Per Protocol Vasopressin/Sodium Chloride 20 unit in 100 mls @ 9 mls/hr 03/09/25 13:05 03/12/25 20:57 Vasostrict/Ns Ivpb IV 04/08/25 13:04 0.03 unit/min .Q11H7M PRN 9 mls/hr PER PROTOCOL Administration Protocol 0.03 UNIT/MIN Albumin Human 12.5 gm in 250 mls @ 100 mls/hr 03/11/25 15:30 03/13/25 04:08 Albuminex 5% Ivpb IV 03/14/25 14:44 Not Given Q6H RAMON Piperacillin/Tazobactam/Dextrose 3.375 gm in 50 mls @ 12.5 mls/hr 03/12/25 14:00 03/13/25 05:40 Zosyn IV 03/17/25 13:59 12.5 mls/hr Q8HR RAMON Administration Protocol Norepinephrine Bitartrate 16 mg in 250 mls @ 5.592 mls/hr 03/12/25 21:15 03/13/25 04:50 Levophed In Ns 16mg/250ml IV 04/11/25 21:14 0.42 mcg/kg/min .Q24H PRN 46.974 mls/hr PER PROTOCOL Titration Protocol 0.05 MCG/KG/MIN Lactulose 20 gm 03/12/25 10:30 03/12/25 10:48 Lactulose Syrup 20 Gm/30 Ml Udc NG 04/11/25 10:29 20 gm QDAY RAMON Administration Protocol Levothyroxine Sodium 100 mcg 03/11/25 06:00 03/13/25 05:39 Levothyroxine Inj 100 Mcg Vial IV 04/10/25 05:59 100 mcg ACBR RAMON Administration Lidocaine 1 patch 03/02/25 11:57 03/11/25 08:00 Lidocaine 5% 1 Patch TOP 04/01/25 11:56 1 patch UD PRN Administration localized pain Protocol Lidocaine 1 patch 03/12/25 19:02 Lidocaine 5% 1 Patch TOP 04/11/25 19:01 UD PRN midline chest pain Miconazole Nitrate 0 gm 03/02/25 12:00 03/13/25 00:00 Miconazole Nitrate Cr 2% 15 Gm Tube TOP 04/01/25 11:59 Not Given BID RAMON Midodrine 10 mg 03/07/25 09:29 03/07/25 10:17 Midodrine 5 Mg Tablet PO 04/03/25 09:59 10 mg Q6H PRN Administration MAP less than 65 Ondansetron HCl 4 mg 03/01/25 14:01 Ondansetron Inj 2 Mg/Ml Inj 2 Ml IVP 03/31/25 14:00 Q6H PRN NAUSEA OR VOMITING Protocol Pantoprazole Sodium 40 mg 03/11/25 03:50 03/12/25 09:39 Pantoprazole Inj 40 Mg Vial IVP 04/10/25 03:49 40 mg QDAY RAMON Administration Pharmacy Consult 1 each 03/09/25 13:04 Pharmacy Renal Dose Adjustment 1 Ea XX 04/08/25 13:03 PRN PRN CONSULT Rifaximin 550 mg 03/12/25 21:00 03/12/25 21:12 Rifaximin 550 Mg Tablet NG 03/19/25 20:59 550 mg BID RAMON Administration Sodium Chloride 3 ml 03/01/25 11:02 Sodium Chloride Rt Rosario 0.9% 3 Ml Nebu INH 03/31/25 11:01 PRN PRN SOLN Plan Assessment: 70-year-old female with a history of chronic kidney disease (CKD), cirrhosis, hypothyroidism, recent giardia infection, and chronic back pain (oxy q4), was recently admitted with severe hyperkalemia (K 7.1), KADI, and generalized weakness, who presented from [facility] due to encephalopathy. Bounced back to ICU due to shock/refractory hypotension requiring pressor support. Evaluating patient for worsening liver function and unknown source of infection. Initiated conversation with transfer center about hepatic disfunction, currently cleared by financial department. Today patient states she would want to be comfort care. Comfort care measures initiated. #Comfort care Comfort measures initiated. #Hepatic Encephalopathy - resolved #Shock #Acute on Chronic Hypoxic Hypercapnic Respiratory Failure, resolved #Hepatocellular carcinoma #Abdominal Pain, worsening #Necrosis of Liver #Perihepatic fluid, s/p hepatic drain #HX of YODER, confirmed with bx #Major ileus, resolved #Transaminitis - stable/persistent #Hyperbilirubinemia 2/2 infiltrative cancer - worsening #Hepatorenal Type 1 #KADI on CKD stage IIIB - Anuric #HAGMA with underlying metabolic alkalosis - resolved #Hypokalemia - resolved #Hyperkalemia - Resolved #Subclinical hypothyroidism #Hx of Hypothyroidism #Leukocytosis - ongoing #Lactic Acidosis, improving #Skin shearing/pressure wound #Unknown source of infection? #ICU Health maintenance Mechanical ventilation: None Sedation: None Diet: Dysphagia 1 DVT prophylaxis: None GI prophylaxis: None Falcon: Yes Lines: PIV, L femoral, R tunneled dialysis catheter. Antibiotics: None CODE STATUS: Full Patient seen and care discussed with my attending physician, Dr. Duran, and Dr. Dominick Mejia Note written by Andrey Bhatt PGY-1 This document was transcribed using voice recognition technology. Minor inaccuracies may be present.
[2025-03-13 07:13] LABS: Platelet Count 37 Thou/mm3 (140-440)
--- NOTE | 2025-03-13 07:13 | ESPR_ITS ---
RE: KOMAL GARCIA : 1955 DATE OF SERVICE: 03/12/2025 HISTORY OF PRESENT ILLNESS: Briefly, she is a 70-year-old woman with past medical history significant for hypertension, fatty liver, hypothyroidism, obesity, stage IV-V CKD, and now ESRD, whose baseline serum creatinine was around 1.2-2.8 mg/dL since 01/15/2025, who presented to the hospital on 03/01/2025 with altered level of consciousness, leukocytosis, lactic acidosis, and elevated ammonia level. Patient has been on dialysis since 03/01/2025. She was transferred back to ICU for lower blood pressures. Last dialysis was yesterday. Patient also has a history of Staphylococcus hominis bacteremia, on IV Ancef. Another liver biopsy was done on , which did not show any liver carcinoma; however, it was considered liver cirrhosis. Patient also had a CTA of the abdomen and she was found with splenomegaly, esophageal varices, perigastric varices, and a 9 mm posterior right lobe liver lesion with multiple satellite smaller liver lesions. Upon consultation with [facility] Hepatology, it was confirmed that patient, though with negative liver biopsy for any carcinoma, indeed has hepatocellular carcinoma. PHYSICAL EXAMINATION: General: She is asleep, daughter by the bedside. Vital Signs: Blood pressure of 131/48, heart rate of 97. HEENT: Anicteric sclerae, cephalic. Neck: Supple, no JVD. Chest and Lungs: Symmetric expansion. Clear breath sounds. Cardiac: Exam without murmur. Abdomen: Soft, nontender, obese. Extremities: 2+ bilateral pitting edema. LABORATORY DATA: Hemoglobin 11.1, WBC 20,600, platelet count 38,000. Sodium 135, potassium 3.7, chloride 95, CO2 of 23.2, BUN 21, creatinine 2.7. Lactic acid 2.8. Total bilirubin 8.2, AST 106, alkaline phosphatase 273, albumin 2.4. CURRENT MEDICATIONS: 1. Albumin. 2. Albuterol. 3. Fentanyl. 4. Hydromorphone. 5. Zosyn 3.375 g IV q.8. 6. Rifaximin 550 mg p.o. b.i.d. 7. Vasopressin drip. 8. Norepinephrine drip. ASSESSMENT: 1. Oliguric acute kidney injury, most likely secondary to type 1 hepatorenal syndrome. 2. Lactic acidosis secondary to hypoperfusion, liver failure, renal failure, and due to hepatocellular carcinoma. 3. Obesity. 4. Staphylococcus hominis bacteremia and septicemia. 5. Liver insufficiency. PLAN: Patient's family is leaning towards hospice care with dialysis. This was explained to her daughter that it is most likely acceptable to hospice with hemodialysis support. Next dialysis will be tomorrow after today's dialysis session. DT: 22:09:23 TT: 22:36:00 Ref: [id number] - TID: [id number] MTDD
[2025-03-13] MEDS: VASOPRESSIN IN NS IVPB 20 UNIT/100 ML BAG 9 UNIT IV (07:25)
[2025-03-13] MEDS: Norepinephrine/NS 16mg/250ml 16 MG/250 ML BAG 44.738 MG IV (07:27)
[2025-03-13 08:03] LABS: Triglycerides 135 mg/dL (30-150)
[2025-03-13] MEDS: LACTULOSE SYRUP 20 GM/30 ML UDC NG (08:12)
[2025-03-13] MEDS: MICONAZOLE NITRATE CR 2% 15 GM TUBE TOP (08:37)
[2025-03-13] MEDS: BALSAM PERU/CASTOR OIL (Venelex) 60 GM TUBE TOP (08:37)
[2025-03-13] MEDS: Norepinephrine/NS 16mg/250ml 16 MG/250 ML BAG 87.238 MG IV (11:09)
--- NOTE | 2025-03-13 11:17 | PC.CC ---
Most recent physician note discussed possible hospice. Left message with machine records units supervisor to please have ICU physician call the transfer center to discuss possible hospice vs transfer.
[2025-03-13] MEDS: HEPARIN SOD INJ 1000 UNIT/ML VIAL 10 ML 3100 UNIT INDWELLCAT (11:53)
--- NOTE | 2025-03-13 12:24 | PC.CC ---
Spoke with Dr. Bhatt regarding status of transfer. Dr. Bhatt cancelled the transfer at this time.
[2025-03-13 13:16] LABS: Slide Review Platelets confirmed
[2025-03-13] MEDS: ONDANSETRON INJ 2 MG/ML INJ 2 ML 4 MG IVP (13:16)
[2025-03-13] MEDS: DEXTROSE 50%-WATER INJ 50 ML SYRINGE IVP (13:36)
[2025-03-13] MEDS: MORPHINE SULF INJ 4 MG/ML VIAL 2 MG IVP (13:59)
[2025-03-13] MEDS: SCOPOLAMINE 1 MG TDSY TOP (14:08)
[2025-03-13] MEDS: fentaNYL 2,500 MCG/250 ML BAG 2,500 MCG/250 ML BAG IV (14:08)
[2025-03-13] MEDS: fentaNYL CIT INJ 50 mCg/ML AMP 2ML IVP ×4 (14:39→15:59)
--- NOTE | 2025-03-13 14:43 | EVENTNT_ITS ---
<Statement entered by Francine Duran MD - 03/14/25 12:12> I saw and evaluated the patient. I reviewed the resident?s note and agree with findings and plan as documented in the resident?s note. Documentation for date of: 03/13/25 Event Note Event Note: At 1400, pt and family made decision to pursue comfort measures. Will initiate comfort care, including fentanyl drip. Will change CODE STATUS to DNR at this time. Patient seen and care discussed with my attending physician, Dr. Renee Mejia, PGY-2 This document was transcribed using voice recognition technology. Minor inaccuracies may be present.
--- NOTE | 2025-03-13 14:54 | PC.SS ---
Update: Patient's family has made decision to transition the patient to comfort care. Transfer has been cancelled.
[2025-03-13] MEDS: Morphine IV Drip 100mg/100ml 100 ML IV (15:18)
[2025-03-13] MEDS: LORazepam 2 MG/ML VIAL IVP (16:18)
--- NOTE | 2025-03-13 17:07 | EVENTNT_ITS ---
<Statement entered by Wil Logan MD - 03/13/25 17:42> In summary: 70-year-old female with a history of hypothyroidism, CKD3b, cirrhosis, recent Giardia infection, and chronic back pain, was brought in on 03/01/25 for altered mental status. Initially confused, she was found to have severe hyperkalemia and required hemodialysis. She was treated for a GPC infection with vancomycin and ceftriaxone. Imaging revealed a malignant hepatic neoplasm consistent with hepatocellular carcinoma, which was confirmed after a second liver biopsy. Despite interventions, including vasopressor support and consultations with [facility] Hepatology, her condition continued to worsen, with elevated lactate levels and worsening liver function. After a discussion with the family, the decision was made on 03/13/25 to initiate comfort measures, and she was downgraded to MedSurg for end-of-life care. I?ve reviewed the note and agree with this assessment and plan, with the exceptions outlined above. I personally went over the labs, imaging, home medications, and prior records, and examined the patient. The case was also reviewed with the attending physician. Please note: this document was transcribed using voice recognition technology; minor inaccuracies may be present. Wil Logan DO PGY II Documentation for date of: 03/13/25 Event Note Event Note: Mrs. Mehta is a 70-year-old female with history of hypothyroidism, CKD3b, cirrhosis, recent Giardia infection, and chronic back pain secondary to lumbar spine fracture who initially was brought in by ambulance on 03/01/25 from [facility] for altered mental status. Patient was found to be confused and away from her baseline. Family had noted that patient has not been eating well at the residential and that she takes oxycodone for pain management. On initial encounter, patient was a/o x 1. Stroke was ruled out with negative image findings. She was admitted to ICU for severe hyperkalemia requiring hemodialysis. During this admission, she was found to have GPC 1 out of 2 bottles and was started on vancomycin and ceftriaxone, repeat blood cultures were ordered due to possibility of contamination. On admission to ICU, she was put on low dose pressors for blood pressure support, and eventually downgraded to MedSurg on 03/05/25 after weaning off pressors. She was found to have elevated T. Bili that continue to uptrend, US gallbladder reveals cholelithiasis with gallbladder wall thickening, and MRCP and CT abd were ordered. MRCP revealed lobulated large malignant neoplasm in liver that was seen in previous study in November, now occupies the entire portion of the right lobe and medial segment of the left lobe. Per radiology report, malignant apical neoplasm is certainly the cause, normal certainly represent hepatic cell car cinoma. Upon chart review, patient had a liver biopsy on 12/04/24, which showed moderate macrovesicular and microvesicular stateotosis with ballooning, negative for malignancy, however, repeat biopsy suspicious for malignancy with hepatic necrosis. On 03/06/25, patient's lactate continue to uptrend despite IV albumin infusion and extra dose of midodrine, it was deemed appropriate at that time for patient to return to ICU for pressor support. During patient's stay in the ICU from 03/06 to 03/12, patient's health continue to decline rapidly, requiring vasopressin and norepeinephrie drip. A consultation was made to [facility] Hepatology, it was confirmed that patient, though with negative liver biopsy for any carcinoma, was indeed hepatocellular carcinoma. On 1400 03/13/25, after a length discussion with family at bedside, both patient and family made decision to pursue comfort measures. Comfort care initiated, including fentanyl drip. CODE STATUS to DNR at this time. Patient was downgraded to MedSur. Diagnosis: #Comfort Care #Hepatic Encephalopathy #Shock #NSTEMI type II, likely related to demand ischemia #Acute on Chronic Hypoxic Hypercapnic Respiratory Failure, resolved #Abdominal Pain, worsening #Necrosis of Liver #Perihepatic fluid, s/p hepatic drain #Cirrhosis #Major ileus, resolved #Transaminitis - stable/persistent #Hyperbilirubinemia 2/2 infiltrative cancer - worsening #KADI on CKD stage IIIB - Anuric #Hepatorenal syndrome #HAGMA with underlying metabolic alkalosis - resolved #Hypokalemia - resolved #Hyperkalemia - Resolved #Subclinical hypothyroidism #Hx of Hypothyroidism #Leukocytosis - ongoing #Lactic Acidosis, improving #Unknown source of infection Plan: Comfort measure Case discussed with my senior resident Dr. Logan Case discussed with my attending Dr. Angelika Rosenberg, PGY 1
[2025-03-13 17:51] LABS: Index Value <0.50
[2025-03-13] MEDS: LORazepam 2 MG/ML VIAL 1 MG IVP (20:51)
[2025-03-14] VITALS: BP 32/15; PULSE 91; RESP 11; O2SAT 83
[2025-03-14 01:00] VITALS: BP 28/13; PULSE 85; RESP 11; O2SAT 84
--- NOTE | 2025-03-14 02:08 | PD.DPN ---
Documentation for date of: 03/14/25 Pronouncement Note Date and Time of Date of : 03/14/25 Time of : 02:05 PCOD Preliminary cause of : Cardiopulmonary arrest Contributing Factors (1) Sepsis: (2) Liver lesion, right lobe: (3) Mass of urinary bladder: (4) Pulmonary nodules/lesions, multiple: (5) Acute renal insufficiency: (6) Renal failure: Summary Additional details: At 0203, nursing staff notified hospitalist team that the patient appeared to have stopped breathing and no longer has a pulse. Patient was seen and examined at the bedside, no pulses could be felt, no cardiac sounds were heard after 1 continuous minute of auscultation, no breath sounds heard, and pupils were fixed and dilated. Patient pronounced at 0205 on 03/14/2025. Family was informed at bedside who requested time to process the patient's passing. Patient plan of care was discussed with attending physician Dr. David Blackwood, PGY1 Additional Data Confirmation of : no pulse, no respirations, no heart sounds and pupils fixed and dilated Family: at bedside Attending/PCP notified?: Yes Attending physician: Vita Myrick MD Was code activated?: No
[2025-03-14 06:22] LABS: Osmolality, Urine* 299 mOsm/kg (50-1200)
[2025-03-14 06:24] LABS: Aspergillus Ag, Ser* NOT DETECTED
--- NOTE | 2025-03-14 07:48 | DES_ITS ---
<Statement entered by Tiffany Carney MD - 03/22/25 09:13> I reviewed above note and agree with findings and plans. I have also personally examined the patient with medicine team and went over assessment and plan with medical team including internet sales associate and resident physician. <Statement entered by Wil Logan MD - 03/14/25 15:20> In summary: a 70-year-old female with a history of hypothyroidism, CKD3b, cirrhosis, and recent Giardia infection, was admitted on 03/01/25 for altered mental status and hyperkalemia requiring hemodialysis. Imaging revealed a large hepatic neoplasm consistent with hepatocellular carcinoma, confirmed by biopsy. Unfortunate, despite pressor support and aggressive medical management, she continued to deteriorate prompting discussion of goals of care, after which family and patient elected for comfort measures. On 03/14/25 at 0205, she was pronounced after cessation of breathing and pulse, with her family informed at the bedside and requesting time to process her passing. I?ve reviewed the note and agree with this assessment and plan, with the exceptions outlined above. I personally went over the labs, imaging, home medications, and prior records, and examined the patient. The case was also reviewed with the attending physician. Please note: this document was transcribed using voice recognition technology; minor inaccuracies may be present. Wil Logan DO PGY II Documentation for date of: 03/14/25 Summary Date and Time Date of admission: 03/01/25 14:01 Date of : 03/14/25 Time of : 02:05 Summary Details: At 0203, nursing staff notified hospitalist team that the patient appeared to have stopped breathing and no longer has a pulse. Patient was seen and examined at the bedside, no pulses could be felt, no cardiac sounds were heard after 1 continuous minute of auscultation, no breath sounds heard, and pupils were fixed and dilated. Patient pronounced at 0205 on 03/14/2025. Family was informed at bedside who requested time to process the patient's passing. Hospital Course: Mrs. Poe is a 70-year-old female with history of hypothyroidism, CKD3b, cirrhosis, recent Giardia infection, and chronic back pain secondary to lumbar spine fracture who initially was brought in by ambulance on 03/01/25 from [facility] for altered mental status. Patient was found to be confused and away from her baseline. Family had noted that patient has not been [facility] well at the [facility] and that she takes oxycodone for pain management. On initial encounter, patient was a/o x 1. Stroke was ruled out with negative image findings. She was admitted to ICU for severe hyperkalemia requiring hemodialysis. During this admission, she was found to have GPC 1 out of 2 bottles and was started on vancomycin and ceftriaxone, repeat blood cultu res were ordered due to possibility of contamination. On admission to ICU, she was put on low dose pressors for blood pressure support, and eventually downgraded to MedSurg on 03/05/25 after weaning off pressors. She was found to have elevated T. Bili that continue to uptrend, US gallbladder reveals cholelithiasis with gallbladder wall thickening, and MRCP and CT abd were ordered. MRCP revealed lobulated large malignant neoplasm in liver that was seen in previous study in November, now occupies the entire portion of the right lobe and medial segment of the left lobe. Per radiology report, malignant apical neoplasm is certainly the cause, normal certainly represent hepatic cell carcinoma. Upon chart review, patient had a liver biopsy on 12/04/24, which showed moderate macrovesicular and microvesicular stateotosis with ballooning, negative for malignancy, however, repeat biopsy suspicious for malignancy with hepatic necrosis. On 03/06/25, patient's lactate continue to uptrend despite IV a lbumin infusion and extra dose of midodrine, it was deemed appropriate at that time for patient to return to ICU for pressor support. During patient's stay in the ICU from 03/06 to 03/12, patient's health continue to decline rapidly, requiring vasopressin and norepeinephrie drip. A consultation was made to [facility] Hepatology, it was confirmed that patient, though with negative liver biopsy for any carcinoma, was indeed hepatocellular carcinoma. On 1400 03/13/25, after a length discussion with family at bedside, both patient and family made decision to pursue comfort measures. Comfort care initiated, including fentanyl drip. CODE STATUS to DNR at this time. Patient was downgraded to MedSurg on 03/13/25 after initiation of comfort care. Additional Data Confirmation of as documented by pronouncing clinician: no pulse, no respirations, no heart sounds and pupils fixed and dilated Family: at bedside Attending/PCP notified?: Yes Attending physician: Dr. David MD Was code activated?: No Autopsy requested?: No mail distribution scheme examiner notified?: No Organ bank notified?: No Visit Providers Provider Primary care physician: Tona Metz MD Consults: 03/02/25 08:00 Referral Speech Therapy Routine Comment: 03/04/25 14:31 Referral Speech Therapy Routine Comment: 03/12/25 14:14 Referral [place] Routine Comment: Diagnosis Contributing Factors (1) Sepsis: (2) Liver lesion, right lobe: (3) Mass of urinary bladder: (4) Pulmonary nodules/lesions, multiple: (5) Acute renal insufficiency: (6) Renal failure: Discharge Plan Plan Patient Disposition: Prescriptions/Referrals Referrals: Tona Metz MD [Primary Care Provider, Family Practice] Patient/Caregiver Discharge Instructions Print Language: Comoran Discharge Order Discharge Orders: Discharge (Routine); Ordered 03/14/25 Ordered By: Lex Blackwood
[2025-03-14 19:53] LABS: (1-3)-B-D-glucan* <31 pg/mL
[2025-03-15 06:21] LABS: Interpretation NEGATIVE
== END 2025-03-14 02:05 | disposition expired | DRG 871 ==
LOC: SERX 12:36 → SERHOLD 03-02 05:39 → S2SX 03-02 05:39 → S2NX 03-12 08:34 → S2SX 03-12 08:34
PROVIDERS: Internal Medicine; Internal Medicine Nephrology; Student in an Organized Health Care Education/Training Program; Admitting Provider Internal Medicine; Emergency Provider Family Medicine; PCP Family Medicine; Visit Provider Internal Medicine
DX: A41.1 Sepsis due to other specified staphylococcus (principal); E11.10 Type 2 diabetes mellitus with ketoacidosis without coma; N17.0 Acute kidney failure with tubular necrosis; J96.21 Acute and chronic respiratory failure with hypoxia; J96.22 Acute and chronic respiratory failure with hypercapnia; K72.00 Acute and subacute hepatic failure without coma; K76.7 Hepatorenal syndrome; R65.21 Severe sepsis with septic shock; N18.6 End stage renal disease; J18.9 Pneumonia, unspecified organism; C22.0 Liver cell carcinoma; Z68.41 Body mass index [BMI] 40.0-44.9, adult; E87.3 Alkalosis; I12.0 Hypertensive chronic kidney disease with stage 5 chronic kidney disease or end stage renal disease; D68.9 Coagulation defect, unspecified; J44.0 Chronic obstructive pulmonary disease with (acute) lower respiratory infection; K56.7 Ileus, unspecified; K75.81 Nonalcoholic steatohepatitis (NASH); E03.9 Hypothyroidism, unspecified; E87.5 Hyperkalemia; I44.7 Left bundle-branch block, unspecified; K76.82 Hepatic encephalopathy; E83.39 Other disorders of phosphorus metabolism; E83.41 Hypermagnesemia; E66.9 Obesity, unspecified; G89.29 Other chronic pain; M54.9 Dorsalgia, unspecified; I46.9 Cardiac arrest, cause unspecified; N32.9 Bladder disorder, unspecified; E03.8 Other specified hypothyroidism; E11.22 Type 2 diabetes mellitus with diabetic chronic kidney disease; E66.01 Morbid (severe) obesity due to excess calories; E87.6 Hypokalemia; D69.6 Thrombocytopenia, unspecified; R57.8 Other shock; I95.3 Hypotension of hemodialysis; L98.47 Non-pressure chronic ulcer of groin; K74.60 Unspecified cirrhosis of liver; K80.20 Calculus of gallbladder without cholecystitis without obstruction; Z51.5 Encounter for palliative care; Z66 Do not resuscitate; Z74.01 Bed confinement status; Z79.891 Long term (current) use of opiate analgesic; Z90.710 Acquired absence of both cervix and uterus; Z99.2 Dependence on renal dialysis
CPT/HCPCS: 36415; 36600; 51702; 70450; 70496; 70498; 71045; 71260; 74175; 74176; 74177; 74181; 75989; 76705; 76770; 76937; 77001; 77012; 80048; 80053; 80069; 80074; 80202; 80307; 80320; 80329; 81001; 82042; 82105; 82140; 82436; 82570; 82607; 82803; 82945; 83605; 83615; 83735; 83935; 84100; 84133; 84145; 84157; 84300; 84439; 84443; 84478; 84484; 85014; 85018; 85025; 85610; 85730; 86021; 86036; 86301; 86331; 86635; 86780; 86850; 86900; 86901; 86927; 86965; 87040; 87070; 87075; 87077; 87081; 87086; 87102; 87186; 87205; 87305; 87449; 87493; 89051; 92526; 92610; 93005; 93306; 94640; 94644; 94664; 96361; 96365; 96375; 96376; 99152; 99291; 99292; A4314; A4649; A9270; C1729; C1750; C1751; C1752; C1894; J0689; J0696; J1171; J1642; J1643; J1644; J1815; J2060; J2250; J2270; J2354; J2405; J2470; J2543; J2598; J3010; J3373; J3375; J3430; J3480; J3490; J7050; J7120; J7602; J7999; P9035; P9045; P9047; P9060; Q9967; G0480; J7611